=== PATIENT | male | born 1945 | race Caucasian/White ===

== ENCOUNTER 2016-12-12 15:40 | Emergency (ER) | payer MEDICARE ==
[2016-12-12] MEDS ORDERED: TAMSULOSIN 0.4 MG CAP.ER.24H PO STA (16:22)
[2016-12-12] MEDS ORDERED: HYDROmorphone 1 MG/ML 1 ML SYRINGE IVP STA (16:22)
[2016-12-12] MEDS ORDERED: ONDANSETRON 4 MG/2 ML VIAL IVP STA (16:22)
[2016-12-12] MEDS ORDERED: SODIUM CHLORIDE 0.9% 1,000 ML IV STA (16:22)
--- NOTE | 2016-12-12 16:30 | ED ---
Abdominal Pain HPI - General Chief Complaint: Abdominal Pain Stated Complaint: poss kidney stone Time Seen by Provider: 12/12/16 16:11 Source: patient, RN notes reviewed Mode of arrival: ambulatory Limitations: no limitations - History of Present Illness Initial Comments: 70 yo female presents to the ER with cc of right flank pain. Patient developed this right flank pain yesterday. Patient states he's continued to have this achy pain in the right flank. Patient states there is some nausea. Patient denies any vomiting. Patient states he does have a history of kidney stones.. Patient states it does feel like that. Patient states it does seem more mild than his typical flareup. Patient states he constantly has dysuria and has noticed no difference. Patient denies any hematuria. Patient states he was concerned due to the symptoms so he thought that he should be evaluated. Patient denies any recent fever, chills, shortness of breath, chest pain, vomiting, numbness or tingling, hematuria, constipation or diarrhea, headaches or visual changes, or any other current symptoms. - Related Data Home Medications Medication Instructions Recorded Confirmed Acetaminophen [Tylenol] 650 mg PO Q4H PRN 10/28/13 12/12/16 Aspirin 325 mg PO DAILY 10/28/13 12/12/16 Celecoxib [CeleBREX] 200 mg PO DAILY 10/28/13 12/12/16 Doxazosin [Cardura] 8 mg PO HS 10/28/13 12/12/16 Multivitamins, Thera [Multivitamin] 1 tab PO DAILY 10/28/13 12/12/16 Fexofenadine HCl [Mi Allergy] 180 mg PO DAILY PRN 10/11/14 12/12/16 Modafinil [Provigil] 300 mg PO DAILY 10/11/14 12/12/16 Previous Rx's Medication Instructions Recorded Hydrocodone/Acetaminophen [[place] 1 each PO Q6HR PRN #20 tab 12/12/16 5-325] Ketorolac [Toradol] 10 mg PO Q6HR #20 tab 12/12/16 Ondansetron Odt [Zofran ODT] 4 mg PO Q8HR PRN #20 tab 12/12/16 Tamsulosin [Flomax] 0.4 mg PO DAILY #5 cap 12/12/16 Allergies Allergy/AdvReac Type Severity Reaction Status Date / Time No Known Allergies Allergy Verified 12/12/16 15:53 Review of Systems ROS Statement: Those systems with pertinent positive or pertinent negative responses have been documented in the HPI. ROS Other: All systems not noted in ROS Statement are negative. Past Medical History Past Medical History: Osteoarthritis (OA), Prostate Disorder, Skin Disorder, Sleep Apnea/CPAP/BIPAP Additional Past Medical History / Comment(s): PRE-CA SKIN LESIONS; BACK PAIN; HX RT RENAL CALCULUS History of Any Multi-Drug Resistant Organisms: MRSA Date of last positivie culture/infection: 2014 MDRO Source:: finger Past Surgical History: Joint Replacement, Orthopedic Surgery Additional Past Surgical History / Comment(s): LT TOTAL KNEE; RT KNEE MAKOPLASTY ; ABD LIPOMA REMOVED; RT RENAL CALCULUS LITHOTRIPSY, RT URETERAL STENT Past Anesthesia/Blood Transfusion Reactions: No Reported Reaction Past Psychological History: No Psychological Hx Reported Smoking Status: Former smoker Past Alcohol Use History: None Reported Past Drug Use History: None Reported - Past Family History Father Family Medical History: Cancer, Myocardial Infarction ([place]) General Exam - General Exam Comments Initial Comments: General: The patient is awake and alert, in no distress, and does not appear acutely ill. Eye: Pupils are equal, round and reactive to light, extra-ocular movements are intact; there is normal conjunctiva bilaterally. No signs of icterus. Ears, nose, mouth and throat: There are moist mucous membranes. Neck: The neck is supple, there is no tenderness. Cardiovascular: There is a regular rate and rhythm. No murmur, rub or gallop is appreciated. Respiratory: Lungs are clear to auscultation, respirations are non-labored, breath sounds are equal. No wheezes, stridor, rales, or rhonchi. Gastrointestinal: Soft, non-distended, non-tender abdomen without masses or organomegaly noted. There is no rebound or guarding present. No CVA tenderness. Bowel sounds are unremarkable. Back: There is no tenderness to palpation in the midline. There is no obvious deformity. No rashes noted. Musculoskeletal: Normal ROM, no tenderness, There is no pedal edema. There is no calf tenderness or swelling. Sensation intact. Pulses equal bilaterally 2+. Neurological: CN II-XII intact, There are no obvious motor or sensory deficits. Coordination appears grossly intact. Speech is normal. Skin: Skin is warm and dry and no rashes or lesions are noted. Psychiatric: Cooperative, appropriate mood & affect, normal judgment. Limitations: no limitations Course Vital Signs 12/12/16 12/12/16 12/12/16 15:49 17:36 19:03 Temperature 97.3 F L 97.1 F L Pulse Rate 76 81 89 Respiratory 18 18 20 Rate Blood Pressure 176/76 167/75 154/67 O2 Sat by Pulse 98 98 96 Oximetry 12/12/16 19:22 Temperature 98.2 F Pulse Rate 70 Respiratory 16 Rate Blood Pressure 119/71 O2 Sat by Pulse 97 Oximetry Medical Decision Making - Medical Decision Making 70-year-old male presents emergency Department chief complaint of right flank pain. This time patient does appear to have a 5 mm right ureteral calculi. Patient was pain-free in the room. This time we did discuss due to some white blood cells in the urine we will cover for infection due to low suspicion for this. We are pending a culture. At this time we discussed follow-up with urology was is return parameters on patient's questions. He stated that he understood and is eager and plan. He will be discharged. - Lab Data Result diagrams: 12/12/16 19:01 12/12/16 19:01 Lab Results 12/12/16 12/12/16 12/12/16 Range/Units 18:30 19:01 19:01 WBC 7.5 (3.8-10.6) k/uL RBC 4.56 (4.30-5.90) m/uL Hgb 15.1 (13.0-17.5) gm/dL Hct 43.6 (39.0-53.0) % MCV 95.7 (80.0-100.0) fL MCH 33.2 (25.0-35.0) pg MCHC 34.7 (31.0-37.0) g/dL RDW 13.4 (11.5-15.5) % Plt Count 183 (150-450) k/uL Neutrophils % 74 % Lymphocytes % 12 % Monocytes % 7 % Eosinophils % 3 % Basophils % 0 % Neutrophils # 5.6 (1.3-7.7) k/uL Lymphocytes # 0.9 L (1.0-4.8) k/uL Monocytes # 0.5 (0-1.0) k/uL Eosinophils # 0.3 (0-0.7) k/uL Basophils # 0.0 (0-0.2) k/uL Sodium 140 (137-145) mmol/L Potassium 4.3 (3.5-5.1) mmol/L Chloride 107 (98-107) mmol/L Carbon Dioxide 24 (22-30) mmol/L Anion Gap 9 mmol/L BUN 22 H (9-20) mg/dL Creatinine 0.93 (0.66-1.25) mg/dL Est GFR (MDRD) Af Amer >60 (>60 ml/min/1.73 sqM) Est GFR (MDRD) Non-Af >60 (>60 ml/min/1.73 sqM) Glucose 101 H (74-99) mg/dL Calcium 8.5 (8.4-10.2) mg/dL Total Bilirubin 1.0 (0.2-1.3) mg/dL AST 30 (17-59) U/L ALT 32 (21-72) U/L Alkaline Phosphatase 102 (38-126) U/L Total Protein 6.6 (6.3-8.2) g/dL Albumin 3.9 (3.5-5.0) g/dL Urine Color Yellow Urine Appearance Cloudy (Clear) Urine pH 6.5 (5.0-8.0) Ur Specific [place] 1.017 (1.001-1.035) Urine Protein 1+ H (Negative) Urine Glucose (UA) Negative (Negative) Urine Ketones Negative (Negative) Urine Blood Moderate H (Negative) Urine Nitrite Negative (Negative) Urine Bilirubin Negative (Negative) Urine Urobilinogen <2.0 (<2.0) mg/dL Ur Leukocyte Esterase Moderate H (Negative) Urine RBC 106 H (0-5) /hpf Urine WBC 21 H (0-5) /hpf Ur Squamous Epith Cells 2 (0-4) /hpf Calcium Oxalate Crystal Rare H (None) /hpf Urine Bacteria Rare H (None) /hpf Hyaline Casts 5 H (0-2) /lpf Urine Mucus Occasional H (None) /hpf - Radiology Data Radiology results: report reviewed, image reviewed Disposition Clinical Impression: Right ureteral calculus Disposition: HOME SELF-CARE Condition: Stable Instructions: Kidney Stones (ED) Additional Instructions: Please use medication as discussed. Please follow up with family doctor if symptoms have not improved over the next two days. Please return to the emergency room if your symptoms increase or worsen or for any other concerns. Prescriptions: Hydrocodone/Acetaminophen [[place] 5-325] 1 each PO Q6HR PRN #20 tab PRN Reason: Pain Ketorolac [Toradol] 10 mg PO Q6HR #20 tab Ondansetron Odt [Zofran ODT] 4 mg PO Q8HR PRN #20 tab PRN Reason: Nausea Tamsulosin [Flomax] 0.4 mg PO DAILY #5 cap Referrals: Yan Gaona MD [Primary Care Provider] - 1-2 days Time of Disposition: 20:14
--- NOTE | 2016-12-12 17:34 | XR ---
EXAMINATION TYPE: XR KUB DATE OF EXAM: 12/12/2016 COMPARISON: 07/21/2013 HISTORY: Right flank pain TECHNIQUE: 2 views FINDINGS: There is mild linear density at the right lung base. There is no sign of intestinal obstruc tion or pneumoperitoneum. Bony structures are intact. There is a 5 mm calcification over the left kid geovanny. IMPRESSION: Possible left renal calculus. Nonacute abdomen. Atelectasis at the right lung base. There is calcification over the right renal pelvis on the old exam that is not seen on today's exam.
[2016-12-12 19:00] LABS: Appearance,Urine Cloudy (Clear); Bacteria,Urine Rare /hpf; Bilirubin,Urine Negative (Negative); Calcium Oxalate Crystals,Urine Rare /hpf; Glucose,Urine (UA) Negative (Negative); Ketones,Urine Negative (Negative); Leukocyte Esterase,Urine Moderate (Negative); Mucus,Urine Occasional /hpf; Nitrite,Urine Negative (Negative); PH, Urine 6.5 (5.0-8.0); Particle Count 4300; Protein,Urine 1+ (Negative); RBC,Urine 106 /hpf (0-5); Specific Gravity,Urine 1.017 (1.001-1.035); Squamous Epithelial Cell,Urine 2 /hpf (0-4); UA Billing (MACRO vs. MICRO) MICRO; Urobilinogen,Urine <2.0 mg/dL (<2.0); WBC,Urine 21 /hpf (0-5)
[2016-12-12 19:23] VITALS: TEMP 98.2
[2016-12-12 19:23] LABS: Basophils % (A) 0 %; CH 31.6; CHCM 33.2; Eosinophils # (A) 0.3 k/uL (0-0.7); Eosinophils % (A) 3 %; HCT 43.6 % (39.0-53.0); HDW 2.53; HGB 15.1 gm/dL (13.0-17.5); Luc # (Auto) 0.21; Luc % (Auto) 3; Lymphocytes # (A) 0.9 k/uL (1.0-4.8); Lymphocytes % (A) 12 %; MCH 33.2 pg (25.0-35.0); MCHC 34.7 g/dL (31.0-37.0); MCV 95.7 fL (80.0-100.0); Mean Platelet Volume 7.2; Monocytes # (A) 0.5 k/uL (0-1.0); Monocytes % (A) 7 %; Neutrophils # (A) 5.6 k/uL (1.3-7.7); Neutrophils % (A) 74 %; RBC 4.56 m/uL (4.30-5.90); RDW 13.4 % (11.5-15.5); WBC 7.5 k/uL (3.8-10.6); WBC (Perox) 7.97
[2016-12-12 19:34] LABS: ALT 32 U/L (21-72); AST 30 U/L (17-59); Alkaline Phosphatase 102 U/L (38-126); Anion Gap 9 mmol/L; Blood Urea Nitrogen 22 mg/dL (9-20); Calcium 8.5 mg/dL (8.4-10.2); Carbon Dioxide 24 mmol/L (22-30); Chloride 107 mmol/L (98-107); Glucose 101 mg/dL (74-99); Non-African American GFR(MDRD) >60 (>60 ml/min/1.73 sqM); Potassium 4.3 mmol/L (3.5-5.1); Sodium 140 mmol/L (137-145); Total Protein 6.6 g/dL (6.3-8.2)
--- NOTE | 2016-12-12 20:04 | CT ---
EXAMINATION TYPE: CT abdomen pelvis wo con DATE OF EXAM: 12/12/2016 COMPARISON: 05/29/2013 HISTORY: Hematuria CT DLP: 3091.9 mGycm Automated exposure control for dose reduction was used. TECHNIQUE: Helical acquisition of images was performed from the lung bases through the pelvis. FINDINGS: Heart is enlarged. There is no pleural effusion. Liver spleen pancreas gallbladder appear normal. Bile ducts are not dilated. There is no adrenal mass . There are left renal parapelvic cysts. There is calcification in the left. Kidney consistent with n onobstructive calculi. There is a 5 mm calcification in the pelvis on the right side that is probably at lower ureteral calculus. There is no retroperitoneal adenopathy. There is no ascites. Latter dist ends smoothly. I see no intestinal wall thickening. There are no dilated loops. There is probably def ormity of the floor of the urinary bladder due to prostate surgery. There is spondylosis in the lower lumbar spine. There is no compression fracture. There is mild fat stranding in the right lower quadr ant inferior to the cecum. Appendix is seen and appears normal. IMPRESSION: THERE ARE NONOBSTRUCTING LEFT RENAL CALCULI. LEFT RENAL PARAPELVIC CYSTS. THERE IS CLEARING OF THE ST ONE AT THE RIGHT URETEROPELVIC JUNCTION COMPARED TO OLD EXAM. THERE IS SOME FAT STRANDING IN THE RIGH T LOWER QUADRANT INFERIOR TO THE CECUM PROBABLY DUE TO URETERAL OBSTRUCTION AND PERIURETERAL EDEMA.. THIS APPEARS NEW COMPARED TO OLD EXAM. THE APPENDIX IS SEEN AND APPEARS NORMAL. THERE IS A 5 MM CALCIFICATION ON AXIAL IMAGE 127 CONSISTENT WITH THE OBSTRUCTING STONE IN THE LOWER R IGHT URETER. THE RIGHT RENAL PELVIS AND PROXIMAL URETER IS NOT SIGNIFICANTLY DILATED HOWEVER. SIGMOID DIVERTICULOSIS WITHOUT SIGN OF DIVERTICULITIS. CARDIOMEGALY.
[2016-12-12 20:33] VITALS: BP 120/68; PULSE 74; RESP 18
== END 2016-12-12 20:30 | disposition home or self-care (01) ==
LOC: EC 15:40
DX: N20.1 Calculus of ureter (principal); M19.90 Unspecified osteoarthritis, unspecified site; Z87.891 Personal history of nicotine dependence; Z79.82 Long term (current) use of aspirin; Z79.1 Long term (current) use of non-steroidal anti-inflammatories (NSAID); Z79.899 Other long term (current) drug therapy
CPT/HCPCS: 99284; 96365; 96375 ×2; 96361; 36415; 80053; 85025; 81001; 87086; 74000; 74176; J2405; J0696; J1170

== ENCOUNTER 2017-02-09 15:49 | Emergency (ER) | payer MEDICARE ==
[2017-02-09 15:59] VITALS: BP 175/89; PULSE 90; RESP 18; TEMP 98.4
--- NOTE | 2017-02-09 17:45 | ED ---
General Adult HPI <Bonifacio Gaviria - Last Filed: 02/09/17 20:07> - General Source: patient, RN notes reviewed Mode of arrival: ambulatory Limitations: no limitations <Rebel Costa - Last Filed: 02/09/17 20:16> - General Chief complaint: Skin/Abscess/Foreign Body Stated complaint: Recheck Time Seen by Provider: 02/09/17 17:21 - History of Present Illness Initial comments: Patient is a 71 year old male presenting to the ER today with a chief complaint of abscess to the suprapubic area that started 1 week ago. States was draining and went to urgent care two days ago and was started of clindamyacin and culture was obtained. States was called today advised to go to ER because culture came back positive for need of IV antibiotics. Patient states that it is no longer draining at this time. States about the same size and currently not painful. Patient denies any other complaints. Patient denies any recent fever, chills, shortness of breath, chest pain, back pain, abdominal pain, nausea or vomiting, numbness or tingling, dysuria or hematuria, constipation or diarrhea, headaches or visual changes, or any other complaints. (Rebel Costa) - Related Data Home Medications Medication Instructions Recorded Confirmed Aspirin 325 mg PO DAILY 10/28/13 02/09/17 Celecoxib [CeleBREX] 200 mg PO DAILY 10/28/13 02/09/17 Doxazosin [Cardura] 8 mg PO HS 10/28/13 02/09/17 Multivitamins, Thera [Multivitamin] 1 tab PO DAILY 10/28/13 02/09/17 Fexofenadine HCl [Mi Allergy] 180 mg PO DAILY 10/11/14 02/09/17 Modafinil [Provigil] 300 mg PO DAILY 10/11/14 02/09/17 Naproxen Sodium [Aleve] 220 mg PO DAILY PRN 02/09/17 02/09/17 Previous Rx's Medication Instructions Recorded Mupirocin 2% Oint [Bactroban Oint] 1 applic TOPICAL TID #1 gm 02/09/17 Allergies Allergy/AdvReac Type Severity Reaction Status Date / Time No Known Allergies Allergy Verified 02/09/17 17:38 Review of Systems ROS Other: All systems not noted in ROS Statement are negative. <Bonifacio Gaviria - Last Filed: 02/09/17 20:07> ROS Other: All systems not noted in ROS Statement are negative. <IgorRebel - Last Filed: 02/09/17 20:16> ROS Statement: Those systems with pertinent positive or pertinent negative responses have been documented in the HPI. Past Medical History Past Medical History: Osteoarthritis (OA), Prostate Disorder, Skin Disorder, Sleep Apnea/CPAP/BIPAP Additional Past Medical History / Comment(s): PRE-CA SKIN LESIONS; BACK PAIN; HX RT RENAL CALCULUS History of Any Multi-Drug Resistant Organisms: MRSA Date of last positivie culture/infection: 2014 MDRO Source:: finger Past Surgical History: Joint Replacement, Orthopedic Surgery Additional Past Surgical History / Comment(s): LT TOTAL KNEE; RT KNEE MAKOPLASTY ; ABD LIPOMA REMOVED; RT RENAL CALCULUS LITHOTRIPSY, RT URETERAL STENT Past Anesthesia/Blood Transfusion Reactions: No Reported Reaction Past Psychological History: No Psychological Hx Reported Smoking Status: Former smoker Past Alcohol Use History: None Reported Past Drug Use History: None Reported - Past Family History Father Family Medical History: Cancer, Myocardial Infarction ([place]) <CostaRebel - Last Filed: 02/09/17 20:16> General Exam <EveretteBonifacio - Last Filed: 02/09/17 20:07> Limitations: no limitations <Rebel Costa - Last Filed: 02/09/17 20:16> - General Exam Comments Initial Comments: General: The patient is awake and alert, in no distress, and does not appear acutely ill. Eye: Pupils are equal, round and reactive to light, extra-ocular movements are intact. No nystagmus. There is normal conjunctiva bilaterally. No signs of icterus. Ears, nose, mouth and throat: There are moist mucous membranes and no oral lesions. Neck: The neck is supple, there is no tenderness or JVD. Cardiovascular: There is a regular rate and rhythm. No murmur, rub or gallop is appreciated. Respiratory: Lungs are clear to auscultation, respirations are non-labored, breath sounds are equal. No wheezes, stridor, rales, or rhonchi. Gastrointestinal: Soft, non-distended, non-tender abdomen without masses or organomegaly noted. There is no rebound or guarding present. No CVA tenderness. Bowel sounds are unremarkable. Musculoskeletal: Normal ROM, no tenderness. Strength 5/5. Sensation intact. Pulses equal bilaterally 2+. Neurological: A&O x 3. CN II-XII intact, There are no obvious motor or sensory deficits. Coordination appears grossly intact. Speech is normal. Skin: Patient does have abscesses suprapubic area. Mild redness. Firm on palpation. Measures approximately 2 siblings across. Psychiatric: Cooperative, appropriate mood & affect, normal judgment. (Rebel Costa) Medical Decision Making - Lab Data Result diagrams: 02/09/17 18:32 02/09/17 18:32 <Bonifacio Gaviria - Last Filed: 02/09/17 20:07> - Lab Data Result diagrams: 02/09/17 18:32 02/09/17 18:32 <Rebel Costa - Last Filed: 02/09/17 20:16> - Medical Decision Making Patient reevaluated by myself, Dr. Gaviria. Patient does have area of healing abscess and mild skin induration in the suprapubic region. No significant cellulitis. Patient otherwise looks well. Case was discussed in detail with Dr. Gaona including culture results, who would like to follow patient in the office in a couple of days. He does recommend adding mupirocin ointment. (Bonifacio Gaviria) - Lab Data Lab Results 02/09/17 02/09/17 02/09/17 Range/Units 18:32 18:32 18:53 WBC 6.7 (3.8-10.6) k/uL RBC 4.46 (4.30-5.90) m/uL Hgb 14.6 (13.0-17.5) gm/dL Hct 41.7 (39.0-53.0) % MCV 93.4 (80.0-100.0) fL MCH 32.7 (25.0-35.0) pg MCHC 35.0 (31.0-37.0) g/dL RDW 13.0 (11.5-15.5) % Plt Count 263 (150-450) k/uL Neutrophils % 69 % Lymphocytes % 18 % Monocytes % 6 % Eosinophils % 4 % Basophils % 1 % Neutrophils # 4.6 (1.3-7.7) k/uL Lymphocytes # 1.2 (1.0-4.8) k/uL Monocytes # 0.4 (0-1.0) k/uL Eosinophils # 0.3 (0-0.7) k/uL Basophils # 0.0 (0-0.2) k/uL Sodium 141 (137-145) mmol/L Potassium 4.2 (3.5-5.1) mmol/L Chloride 106 (98-107) mmol/L Carbon Dioxide 26 (22-30) mmol/L Anion Gap 9 mmol/L BUN 18 (9-20) mg/dL Creatinine 0.66 (0.66-1.25) mg/dL Est GFR (MDRD) Af Amer >60 (>60 ml/min/1.73 sqM) Est GFR (MDRD) Non-Af >60 (>60 ml/min/1.73 sqM) Glucose 131 H (74-99) mg/dL Calcium 8.8 (8.4-10.2) mg/dL Urine Color Yellow Urine Appearance Cloudy (Clear) Urine pH 6.5 (5.0-8.0) Ur Specific [place] 1.019 (1.001-1.035) Urine Protein 1+ H (Negative) Urine Glucose (UA) Negative (Negative) Urine Ketones Negative (Negative) Urine Blood Trace H (Negative) Urine Nitrite Negative (Negative) Urine Bilirubin Negative (Negative) Urine Urobilinogen <2.0 (<2.0) mg/dL Ur Leukocyte Esterase Trace H (Negative) Urine RBC 30 H (0-5) /hpf Urine WBC 16 H (0-5) /hpf Ur Squamous Epith Cells 4 (0-4) /hpf Urine Bacteria Rare H (None) /hpf Urine Mucus Many H (None) /hpf Disposition <Bonifacio Gaviria - Last Filed: 02/09/17 20:07> Time of Disposition: 20:15 <Rebel Costa - Last Filed: 02/09/17 20:16> Clinical Impression: Suprapubic abscess Disposition: HOME SELF-CARE Condition: Good Instructions: Abscess (ED) Additional Instructions: Please follow-up the family doctor in the next 1-2 days as discussed per please use topical ointment as prescribed. Please try to emergency room for any other concerns. Prescriptions: Mupirocin 2% Oint [Bactroban Oint] 1 applic TOPICAL TID #1 gm Referrals: Yan Gaona MD [Primary Care Provider] - 1-2 days
[2017-02-09 18:59] LABS: Basophils % (A) 1 %; CH 31.8; CHCM 34.2; Eosinophils # (A) 0.3 k/uL (0-0.7); Eosinophils % (A) 4 %; HCT 41.7 % (39.0-53.0); HDW 2.71; HGB 14.6 gm/dL (13.0-17.5); Luc # (Auto) 0.12; Luc % (Auto) 2; Lymphocytes # (A) 1.2 k/uL (1.0-4.8); Lymphocytes % (A) 18 %; MCH 32.7 pg (25.0-35.0); MCV 93.4 fL (80.0-100.0); Mean Platelet Volume 6.8; Monocytes # (A) 0.4 k/uL (0-1.0); Monocytes % (A) 6 %; Neutrophils # (A) 4.6 k/uL (1.3-7.7); Neutrophils % (A) 69 %; RBC 4.46 m/uL (4.30-5.90); WBC 6.7 k/uL (3.8-10.6)
[2017-02-09 19:03] LABS: Anion Gap 9 mmol/L; Blood Urea Nitrogen 18 mg/dL (9-20); Calcium 8.8 mg/dL (8.4-10.2); Carbon Dioxide 26 mmol/L (22-30); Chloride 106 mmol/L (98-107); Glucose 131 mg/dL (74-99); Non-African American GFR(MDRD) >60 (>60 ml/min/1.73 sqM); Potassium 4.2 mmol/L (3.5-5.1); Sodium 141 mmol/L (137-145)
[2017-02-09 19:03] LABS: Appearance,Urine Cloudy (Clear); Bacteria,Urine Rare /hpf; Bilirubin,Urine Negative (Negative); Glucose,Urine (UA) Negative (Negative); Ketones,Urine Negative (Negative); Leukocyte Esterase,Urine Trace (Negative); Mucus,Urine Many /hpf; Nitrite,Urine Negative (Negative); PH, Urine 6.5 (5.0-8.0); Particle Count 14734; Protein,Urine 1+ (Negative); RBC,Urine 30 /hpf (0-5); Specific Gravity,Urine 1.019 (1.001-1.035); Squamous Epithelial Cell,Urine 4 /hpf (0-4); UA Billing (MACRO vs. MICRO) MICRO; Urobilinogen,Urine <2.0 mg/dL (<2.0); WBC,Urine 16 /hpf (0-5)
--- NOTE | 2017-02-09 19:38 | US ---
EXAMINATION TYPE: US abdomen limited DATE OF EXAM: 02/09/2017 COMPARISON: NONE CLINICAL HISTORY: Pain. Abscess suprapubic area with lump No abnormalities visualized in lump area. IMPRESSION: No discrete solid or cystic masses identified in the suprapubic region of concern.
== END 2017-02-09 20:30 | disposition home or self-care (01) ==
LOC: EC 15:49
DX: L02.211 Cutaneous abscess of abdominal wall (principal); M19.90 Unspecified osteoarthritis, unspecified site; N42.9 Disorder of prostate, unspecified; Z87.891 Personal history of nicotine dependence; Z79.82 Long term (current) use of aspirin; Z79.899 Other long term (current) drug therapy
CPT/HCPCS: 36415; 76705; 76857; 80048; 81001; 85025; 87040; 87086; 99283

== ENCOUNTER → 2018-01-06 | Outpatient (CLI) | payer MEDICARE ==
--- NOTE | 2018-01-06 20:25 | XR ---
EXAMINATION TYPE: XR KUB DATE OF EXAM: 01/06/2018 COMPARISON: 12/12/2016 HISTORY: Back pain TECHNIQUE: 2 views FINDINGS: 2 upright views were obtained and show no sign of intestinal obstruction or pneumoperitoneu m. There are calcifications in the lower pole left kidney. There is no sign of a mass. Fecal pattern is normal. IMPRESSION: Left renal calculi appear increased compared to last exam. Nonacute abdomen.
== END | disposition home or self-care (01) ==
LOC: RADXRMAIN 16:38
PROVIDERS: ATTEND Urology
DX: N20.0 Calculus of kidney (principal)
CPT/HCPCS: 74018

== ENCOUNTER → 2018-01-18 | Outpatient (CLI) | payer MEDICARE ==
[2018-01-18 16:46] LABS: Blood Urea Nitrogen 24 mg/dL (9-20)
--- NOTE | 2018-01-19 09:39 | CT ---
EXAMINATION TYPE: CT abdomen pelvis w con DATE OF EXAM: 01/18/2018 COMPARISON: 12/12/2016 INDICATION: Hematuria and flank pain. DLP: 4105.4 mGycm, Automated exposure control for dose reduction was used. CONTRAST: 100 mL of Isovue 300. Study performed with Oral Contrast TECHNIQUE: Axial images were obtained from above the diaphragm to the pubic rami in the axial plane a t 5 mm thick sections. Reconstructed images are reviewed on the computer in the coronal plane. FINDINGS: Limited CT sections are obtained the lung bases. There is a punctate calcified granuloma at the righ t lung base. CT ABDOMEN: Liver: There is a 0.8 cm hypodensity within the right lobe liver present previously could be a small cyst is too small to classify. Spleen: Normal Pancreas: Normal Adrenal glands: The adrenal glands are normal. Gallbladder: Normal Kidneys: No masses are evident. There is mild left hydronephrosis. A 1.0 cm cyst is in the inferior l eft renal cortex. Multiple renal stones are within the left kidney. At the inferior pole of the le ft kidney is a 0.3 cm calcification. There are two 0.4 cm calcifications at the mid left kidney. An a dditional 0.6 cm calcifications in the lateral left mid kidney. In the mid upper pole left kidney 0.4 cm calcification. Peripelvic cysts appear to be present. Hydronephrosis is less likely. Findings are stable. Aorta: No aneurysmal dilatation is evident. Inferior vena cava: Normal. CT PELVIS: Loops of bowel within the abdomen and pelvis are normal. Diverticular changes are within the sigmo id colon. No acute diverticulitis is evident. There are loops of bowel which are incompletely distend ed or lack oral contrast limiting their evaluation. Appendix: Normal as visualized. Urinary bladder: Normal. Genitourinary structures: Prostate is prominent. Calcifications are present. Prostate is somewhat het erogenous. Consider additional evaluation of the prostate. Osseous structures: No suspicious lytic or sclerotic lesions. Facet degenerative changes are present. Fat-containing right inguinal hernia is present. IMPRESSIONS: 1. Nonobstructing left renal stones. 2. Prominence of the prostate. Consider additional evaluation with prostate ultrasound.
== END | disposition home or self-care (01) ==
LOC: RADCTMAIN 16:06
PROVIDERS: ATTEND Urology
DX: N20.0 Calculus of kidney (principal); R31.9 Hematuria, unspecified
CPT/HCPCS: 82565; 84520; 74177; 36415; Q9967

== ENCOUNTER 2018-06-25 19:33 | Inpatient (IN) | payer MEDICARE ==
[2018-06-25] MEDS ORDERED: SODIUM CHLORIDE 0.9% 1,000 ML IV STA (19:37)
[2018-06-25] MEDS ORDERED: ACETAMINOPHEN TAB 500 MG TAB PO STA (20:22)
[2018-06-25] MEDS ORDERED: IBUPROFEN 600 MG TAB PO STA (20:22)
--- NOTE | 2018-06-25 20:22 | ED ---
Weakness HPI - General Chief complaint: Fall Stated complaint: Weakness Time Seen by Provider: 06/25/18 19:37 Source: patient, EMS, RN notes reviewed, old records reviewed Mode of arrival: EMS Limitations: no limitations - History of Present Illness Initial comments: This is a 72-year-old male the ER for evaluation patient with a for evaluation weakness of fall. Patient persistent weakness of fall currently. No recent travel history no sick contacts. Denies any other significant pain. From the urgent injury from the fall. Patient has had fever for 2 days. Occasional cough no significant shortness of breath. No nausea vomiting or diarrhea no abdominal pain no known rashes. Patient to present to us to Dr. reid in the day did have labwork done was discharged home. MD Complaint: generalized weakness -: days(s) (3) Location: generalized, LLE, RLE Severity: moderate Severity scale (1-10): 7 Quality: other (No pain) Consistency: constant Improves with: none Worsens with: movement Context: recent illness Associated Symptoms: fever/chills - Related Data Home Medications Medication Instructions Recorded Confirmed Aspirin 325 mg PO DAILY 10/28/13 06/25/18 Celecoxib [CeleBREX] 200 mg PO DAILY 10/28/13 06/25/18 Doxazosin [Cardura] 8 mg PO HS 10/28/13 06/25/18 Multivitamins, Thera [Multivitamin] 1 tab PO DAILY 10/28/13 06/25/18 Fexofenadine HCl [Mi Allergy] 180 mg PO DAILY 10/11/14 06/25/18 Modafinil [Provigil] 300 mg PO DAILY 10/11/14 06/25/18 Naproxen Sodium [Aleve] 220 mg PO DAILY PRN 02/09/17 06/25/18 Allergies Allergy/AdvReac Type Severity Reaction Status Date / Time No Known Allergies Allergy Verified 06/25/18 21:34 Review of Systems ROS Statement: Those systems with pertinent positive or pertinent negative responses have been documented in the HPI. ROS Other: All systems not noted in ROS Statement are negative. Past Medical History Past Medical History: Osteoarthritis (OA), Prostate Disorder, Skin Disorder, Sleep Apnea/CPAP/BIPAP Additional Past Medical History / Comment(s): PRE-CA SKIN LESIONS; BACK PAIN; HX RT RENAL CALCULUS History of Any Multi-Drug Resistant Organisms: MRSA Date of last positivie culture/infection: 2014 MDRO Source:: finger Past Surgical History: Joint Replacement, Orthopedic Surgery Additional Past Surgical History / Comment(s): LT TOTAL KNEE; RT KNEE MAKOPLASTY ; ABD LIPOMA REMOVED; RT RENAL CALCULUS LITHOTRIPSY, RT URETERAL STENT Past Anesthesia/Blood Transfusion Reactions: No Reported Reaction Past Psychological History: No Psychological Hx Reported Smoking Status: Former smoker Past Alcohol Use History: None Reported Past Drug Use History: None Reported - Past Family History Father Family Medical History: Cancer, Myocardial Infarction ([place]) General Exam Limitations: no limitations General appearance: alert, in no apparent distress, obese Head exam: Present: atraumatic, normocephalic, normal inspection Eye exam: Present: normal appearance, PERRL, EOMI. Absent: scleral icterus, conjunctival injection, periorbital swelling ENT exam: Present: normal exam, mucous membranes moist Neck exam: Present: normal inspection. Absent: tenderness, meningismus, lymphadenopathy Respiratory exam: Present: normal lung sounds bilaterally. Absent: respiratory distress, wheezes, rales, rhonchi, stridor Cardiovascular Exam: Present: regular rate, normal rhythm, normal heart sounds. Absent: systolic murmur, diastolic murmur, rubs, gallop, clicks GI/Abdominal exam: Present: soft, normal bowel sounds. Absent: distended, tenderness, guarding, rebound, rigid Extremities exam: Present: normal inspection, full ROM, normal capillary refill. Absent: tenderness, pedal edema, joint swelling, calf tenderness Back exam: Present: normal inspection Neurological exam: Present: alert, oriented X3, CN II-XII intact Psychiatric exam: Present: normal affect, normal mood Skin exam: Present: warm, dry, intact, normal color. Absent: rash Course Vital Signs 06/25/18 06/25/18 06/25/18 19:37 20:20 20:30 Temperature 101.6 F H Pulse Rate 90 82 105 H Respiratory 18 22 22 Rate Blood Pressure 161/76 161/76 161/76 O2 Sat by Pulse 95 97 Oximetry 06/25/18 06/25/18 21:20 23:26 Temperature 97.9 F Pulse Rate 80 Respiratory 18 Rate Blood Pressure 167/82 O2 Sat by Pulse 96 Oximetry - Reevaluation(s) Reevaluation #1: 06/25/18 20:30 medical record is reviewed Reevaluation #2: 06/25/18 20:31 Symptoms are improved with symptomatic management fever control and IV hydration Reevaluation #3: 06/25/18 23:30 Patient still very weak, unable to ambulate with good strength EKG Findings - EKG Comments: EKG Findings:: EKG shows sinus rhythm rate of 80, [place] 172, QRS 74, QTc 566 Medical Decision Making - Medical Decision Making 72-year-old male the ER for evaluation continues to feel weak, patient will be admitted for broad-spectrum antibiotics, monitoring of fever, hydration. - Lab Data Result diagrams: 06/25/18 21:24 06/25/18 21:18 Lab Results 06/25/18 06/25/18 06/25/18 Range/Units 20:40 21:18 21:18 WBC (3.8-10.6) k/uL RBC (4.30-5.90) m/uL Hgb (13.0-17.5) gm/dL Hct (39.0-53.0) % MCV (80.0-100.0) fL MCH (25.0-35.0) pg MCHC (31.0-37.0) g/dL RDW (11.5-15.5) % Plt Count (150-450) k/uL Neutrophils % % Lymphocytes % % Monocytes % % Eosinophils % % Basophils % % Neutrophils # (1.3-7.7) k/uL Lymphocytes # (1.0-4.8) k/uL Monocytes # (0-1.0) k/uL Eosinophils # (0-0.7) k/uL Basophils # (0-0.2) k/uL PT 10.7 (9.0-12.0) sec INR 1.0 (<1.2) APTT 25.9 (22.0-30.0) sec Sodium 136 L (137-145) mmol/L Potassium 4.0 (3.5-5.1) mmol/L Chloride 104 (98-107) mmol/L Carbon Dioxide 24 (22-30) mmol/L Anion Gap 8 mmol/L BUN 19 (9-20) mg/dL Creatinine 0.63 L (0.66-1.25) mg/dL Est GFR (CKD-EPI)AfAm >90 (>60 ml/min/1.73 sqM) Est GFR (CKD-EPI)NonAf >90 (>60 ml/min/1.73 sqM) Glucose 125 H (74-99) mg/dL Plasma Lactic Acid Casey (0.7-2.0) mmol/L Calcium 8.3 L (8.4-10.2) mg/dL Phosphorus 2.7 (2.5-4.5) mg/dL Magnesium 2.0 (1.6-2.3) mg/dL Total Bilirubin 1.0 (0.2-1.3) mg/dL AST 20 (17-59) U/L ALT 28 (21-72) U/L Alkaline Phosphatase 68 (38-126) U/L Total Creatine Kinase (55-170) U/L CK-MB (CK-2) (0.0-2.4) ng/mL CK-MB (CK-2) Rel Index Troponin I (0.000-0.034) ng/mL Total Protein 5.7 L (6.3-8.2) g/dL Albumin 3.3 L (3.5-5.0) g/dL TSH 0.163 L (0.465-4.680) mIU/L Influenza Type A RNA Not Detected (Not Detectd) Influenza Type B (PCR) Not Detected (Not Detectd) 06/25/18 06/25/18 06/25/18 Range/Units 21:18 21:18 21:24 WBC 11.7 H (3.8-10.6) k/uL RBC 4.26 L (4.30-5.90) m/uL Hgb 13.5 (13.0-17.5) gm/dL Hct 41.0 (39.0-53.0) % MCV 96.1 (80.0-100.0) fL MCH 31.6 (25.0-35.0) pg MCHC 32.9 (31.0-37.0) g/dL RDW 13.3 (11.5-15.5) % Plt Count 200 (150-450) k/uL Neutrophils % 85 % Lymphocytes % 5 % Monocytes % 7 % Eosinophils % 1 % Basophils % 0 % Neutrophils # 10.0 H (1.3-7.7) k/uL Lymphocytes # 0.6 L (1.0-4.8) k/uL Monocytes # 0.8 (0-1.0) k/uL Eosinophils # 0.1 (0-0.7) k/uL Basophils # 0.0 (0-0.2) k/uL PT (9.0-12.0) sec INR (<1.2) APTT (22.0-30.0) sec Sodium (137-145) mmol/L Potassium (3.5-5.1) mmol/L Chloride (98-107) mmol/L Carbon Dioxide (22-30) mmol/L Anion Gap mmol/L BUN (9-20) mg/dL Creatinine (0.66-1.25) mg/dL Est GFR (CKD-EPI)AfAm (>60 ml/min/1.73 sqM) Est GFR (CKD-EPI)NonAf (>60 ml/min/1.73 sqM) Glucose (74-99) mg/dL Plasma Lactic Acid Casey 0.9 (0.7-2.0) mmol/L Calcium (8.4-10.2) mg/dL Phosphorus (2.5-4.5) mg/dL Magnesium (1.6-2.3) mg/dL Total Bilirubin (0.2-1.3) mg/dL AST (17-59) U/L ALT (21-72) U/L Alkaline Phosphatase (38-126) U/L Total Creatine Kinase 69 (55-170) U/L CK-MB (CK-2) 0.6 (0.0-2.4) ng/mL CK-MB (CK-2) Rel Index 0.9 Troponin I 0.017 (0.000-0.034) ng/mL Total Protein (6.3-8.2) g/dL Albumin (3.5-5.0) g/dL TSH (0.465-4.680) mIU/L Influenza Type A RNA (Not Detectd) Influenza Type B (PCR) (Not Detectd) - Radiology Data Radiology results: report reviewed (CT brain negative chest x-ray and pelvis x- ray negative for acute disease or traumatic injury), image reviewed Disposition Clinical Impression: Fall, Pre-syncope, Weakness, Fever Disposition: ADMITTED IP TO THIS HOSP Condition: Fair Is patient prescribed a controlled substance at d/c from ED?: No Referrals: Yan Gaona MD [Primary Care Provider] - 1-2 days
--- NOTE | 2018-06-25 21:25 | XR ---
EXAMINATION TYPE: XR pelvis AP view DATE OF EXAM: 06/25/2018 COMPARISON: NONE HISTORY: Pain TECHNIQUE: Single view FINDINGS: The pelvic ring is intact. Proximal femurs and hip joints are intact. Sacroiliac joints jc ear intact. IMPRESSION: No acute abnormality of the pelvis. No fracture.
--- NOTE | 2018-06-25 21:26 | XR ---
EXAMINATION TYPE: XR chest 2V DATE OF EXAM: 06/25/2018 COMPARISON: Today HISTORY: Weakness TECHNIQUE: Frontal and lateral views of the chest are obtained. FINDINGS: There is no heart failure nor confluent pneumonic infiltrate. Costophrenic angles are augie r. The bony thorax is intact. There are chest leads. IMPRESSION: No active cardiopulmonary disease. No change.
[2018-06-25 21:38] LABS: Basophils % (A) 0 %; Eosinophils # (A) 0.1 k/uL (0-0.7); Eosinophils % (A) 1 %; HGB 13.5 gm/dL (13.0-17.5); Lymphocytes # (A) 0.6 k/uL (1.0-4.8); Lymphocytes % (A) 5 %; MCH 31.6 pg (25.0-35.0); MCHC 32.9 g/dL (31.0-37.0); MCV 96.1 fL (80.0-100.0); Mean Platelet Volume 7.2; Monocytes # (A) 0.8 k/uL (0-1.0); Monocytes % (A) 7 %; Neutrophils % (A) 85 %; Platelet Count 200 k/uL (150-450); RBC 4.26 m/uL (4.30-5.90); RDW 13.3 % (11.5-15.5); WBC 11.7 k/uL (3.8-10.6)
[2018-06-25 21:48] LABS: Partial Thromboplastin Time 25.9 sec (22.0-30.0); Prothrombin Time 10.7 sec (9.0-12.0)
[2018-06-25 21:52] LABS: ALT 28 U/L (21-72); AST 20 U/L (17-59); Albumin 3.3 g/dL (3.5-5.0); Alkaline Phosphatase 68 U/L (38-126); Anion Gap 8 mmol/L; Blood Urea Nitrogen 19 mg/dL (9-20); Calcium 8.3 mg/dL (8.4-10.2); Carbon Dioxide 24 mmol/L (22-30); Chloride 104 mmol/L (98-107); Glucose 125 mg/dL (74-99); Phosphorus 2.7 mg/dL (2.5-4.5); Sodium 136 mmol/L (137-145); Total Protein 5.7 g/dL (6.3-8.2)
[2018-06-25 22:07] LABS: Creatine Kinase MB 0.6 ng/mL (0.0-2.4); Troponin I 0.017 ng/mL (0.000-0.034)
--- NOTE | 2018-06-25 22:46 | CT ---
EXAMINATION TYPE: CT brain wo con DATE OF EXAM: 06/25/2018 COMPARISON: None HISTORY: Weakness. CT DLP: 1105.4 mGycm Automated exposure control for dose reduction was used. FINDINGS: There is mild cerebral atrophy. There is no mass effect nor midline shift. There is no sign of intrac ranial hemorrhage. There is some white matter hypodensity around the frontal horns of the lateral marlene tricles slightly more on the right side. Calvarium is intact. IMPRESSION: MILD ATROPHY. CHRONIC SMALL VESSEL ISCHEMIA. NO ACUTE INTRACRANIAL ABNORMALITY.
[2018-06-25] MEDS ORDERED: SODIUM CHLORIDE 0.9% 1,000 ML IV ONE (23:31)
[2018-06-25] MEDS ORDERED: cefTRIAXone 2,000 MG in SODIUM CHLORIDE 0.9% 100 ML IVPB STA (23:32)
[2018-06-25] MEDS ORDERED: NON-FORMULARY DRUG (Naproxen Sodium 220 MG) PO PRN (23:52)
[2018-06-26 01:04] LABS: Appearance,Urine Cloudy (Clear); Bilirubin,Urine Negative (Negative); Blood,Urine Small (Negative); Color,Urine Yellow; Glucose,Urine (UA) Negative (Negative); Ketones,Urine 2+ (Negative); Leukocyte Esterase,Urine Large (Negative); Mucus,Urine Few /hpf; Nitrite,Urine Negative (Negative); Protein,Urine 1+ (Negative); RBC,Urine 21 /hpf (0-5); Specific Gravity,Urine 1.013 (1.001-1.035); Squamous Epithelial Cell,Urine 2 /hpf (0-4); WBC,Urine >182 /hpf (0-5)
[2018-06-26] MEDS: ASPIRIN 325 MG TAB PO SCH (10:46)
[2018-06-26] MEDS: MELOXICAM 7.5 MG TAB PO SCH (10:46)
[2018-06-26] MEDS: MODAFINIL 200 MG TAB PO SCH (10:47)
[2018-06-26] MEDS: LORATADINE 10 MG TAB PO SCH (10:47)
[2018-06-26] MEDS: ENOXAPARIN 40 MG/0.4 ML SYRINGE SQ SCH (10:48)
[2018-06-26] MEDS: MULTIVITAMINS, THERA 1 EACH TAB PO SCH (13:39)
[2018-06-26] MEDS ORDERED: POTASSIUM CHLORIDE ER 20 MEQ TAB.ER PO STA (15:01)
[2018-06-26] MEDS ORDERED: SODIUM CHLORIDE 0.9% 1,000 ML IV SCH (15:45)
--- NOTE | 2018-06-26 16:45 | HP ---
HISTORY AND PHYSICAL CHIEF COMPLAINT: Fall at home. HISTORY OF PRESENT ILLNESS: This is a 72-year-old gentleman presents to the emergency room because of fall at home. The patient said he had got up to the bathroom and as he was trying to get off the lucho his legs gave out. He fell to the floor. He denied any associated symptoms of dizziness, headache. He did not hit his head. However the ER still did a CAT scan of the brain which was reported negative. The patient was seen by me earlier in the office today because of a temperature for the past couple of days. A urine dipstick in the office showed minimal leukocyte esterase, negative nitrate, some ketones and protein in the urine. The patient's urine was sent for culture. Stat chest x-ray was unremarkable. Patient's CBC revealed mildly elevated white count of 12,300. The patient in view of this was ordered Levaquin. The patient had not picked up the medication as prior to presenting to the emergency room. The patient in the ER is noted to have a temperature 101.6 and a white count 11.7. Again, negative chest x-ray. The patient was admitted to the hospital in view of that. No other injuries noted. The patient has had previous cellulitis of the lower legs, but there is no evidence of it. The patient denies any other symptoms. He does have a chronic back pain. At the time of this evaluation this morning he is feeling well, much better. He continues to have back pain, not localized to one or the other side. He does not have fever this morning. No associated nausea, vomiting, diarrhea. The patient's urinalysis, which was obtained after hospitalization, now does show significant amount of white cell, greater than 182, negative nitrate. The patient had been started on Rocephin last night. No blood cultures apparently drawn by ER. Lactic acid run in the ER was normal. PAST MEDICAL HISTORY: Past medical history is primarily significant for cellulitis of lower leg with chronic venous stasis. He does have a support stocking now. History of morbid obesity, history of BPH with previous bladder surgery. Degenerative arthritis in the knees with a previous right knee surgery. No history of any lung disease, liver disease, kidney disease, ulcers, TB, hepatitis. No history of any rheumatic fever, myocardial infarction, or CVA. Does have history of some hypersomnolence during the daytime for which he takes medication with help. 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 PAST SURGICAL HISTORY: Total knee arthroplasty left knee, Maloplasty right knee, TURP, right carpal tunnel syndrome and abdominal wall lipoma excision. PERSONAL HISTORY: Former smoker, used to smoke about 5 cigarettes a day. The patient used to smoke a pack per day for about 5 years. Alcohol none. SOCIAL HISTORY: Patient , lives with his spouse. FAMILY MEDICAL HISTORY: Father at the age of 67 of colon cancer. Mother at age 91 of ASHD. Brother 75, , etiology unknown. A brother 71 in adequate health. A sister 81 in adequate health. A sister 75 in adequate health. A sister 74 , etiology unknown. The patient has one daughter, 41, with history of pulmonary embolism and obesity. REVIEW OF SYSTEMS: NEURO: Denies any headaches, dizziness. No double vision or blurred vision. No symptoms of TIA, syncope, seizures. PSYCH: No anxiety, depression. CARDIAC: No chest pain, angina, palpitations. RESPIRATORY: No shortness of breath, cough, hemoptysis. He has a mild head cold. GI: No nausea, vomiting, abdominal pain, diarrhea, constipation, hematochezia, melena. : No symptoms of dysuria, hematuria. Does have some frequency. EXTREMITIES: Pain mild. Chronic edema. CONSTITUTIONAL: Fever, malaise. Some confusion at times with 2 days ago when he was having a fever. He did not realize he put on his daughter's underwear and then because it was so tight he realized that. PHYSICAL EXAMINATION: Pleasant gentleman present. No distress. Vital signs at this morning are stable. The patient is afebrile. Pulse is 76, respirations 18, blood pressure 130/70. HEENT: Normocephalic. Neck is supple. Pupils reactive. Nostrils clear. Oral cavity is moist. Ears reveal no drainage. Neck reveals no JVD, carotid bruits or thyromegaly. Chest is clear to auscultation and percussion. CARDIAC: Normal S1, S2 with no gallops, murmurs, or rubs. ABDOMEN: Soft. No palpable masses. Bowel sounds normal. No organomegaly. No abdominal bruits. No CVA tenderness. Extremities reveal trace edema. Stigma of some chronic venous stasis changes. NEUROLOGIC: Awake, alert, oriented x3 with well-coordinated movements. LABORATORY ASSESSMENT: CBC which revealed hemoglobin of 11.7. Sodium 136 and glucose of 125. Urinalysis greater than 182 white cells and 182 RBCs. Negative nitrate. ASSESSMENT: 1. Urinary tract infection. 2. Previous history of TURP. 3. Morbid obesity. PLAN: The patient at present is stable. Continue present medical regimen with IV Rocephin. Await urine culture results. If the patient remains stable in the next 48 hours, he will be discharged home. MMODL / IJN: [id number] /
[2018-06-26] MEDS: 0.9% NACL WITH KCL 40 MEQ/L 1,000 ML IV SCH (19:42)
[2018-06-26] MEDS: DOXAZOSIN 4 MG TAB PO SCH (20:55)
[2018-06-27] MEDS: ENOXAPARIN 40 MG/0.4 ML SYRINGE SQ SCH (09:05)
[2018-06-27] MEDS: MELOXICAM 7.5 MG TAB PO SCH (09:05)
[2018-06-27] MEDS: ASPIRIN 325 MG TAB PO SCH (09:05)
[2018-06-27] MEDS: MODAFINIL 200 MG TAB PO SCH (09:06)
[2018-06-27] MEDS: LORATADINE 10 MG TAB PO SCH (09:07)
[2018-06-27 10:42] LABS: HCT 39.1 % (39.0-53.0); HGB 12.8 gm/dL (13.0-17.5); MCH 31.6 pg (25.0-35.0); MCHC 32.7 g/dL (31.0-37.0); MCV 96.6 fL (80.0-100.0); Mean Platelet Volume 6.9; Platelet Count 211 k/uL (150-450); RBC 4.05 m/uL (4.30-5.90); RDW 13.3 % (11.5-15.5); WBC 6.2 k/uL (3.8-10.6)
[2018-06-27 10:54] LABS: Anion Gap 4 mmol/L; Blood Urea Nitrogen 13 mg/dL (9-20); Calcium 8.4 mg/dL (8.4-10.2); Carbon Dioxide 26 mmol/L (22-30); Chloride 107 mmol/L (98-107); Glucose 130 mg/dL (74-99); Potassium 4.1 mmol/L (3.5-5.1); Sodium 137 mmol/L (137-145)
--- NOTE | 2018-06-27 11:32 | P.PN ---
Subjective Progress Note Date: 06/27/18 Principal diagnosis: Urine tract infection This 72-year-old gentleman was admitted to the hospital after a mechanical fall at home. He was unable to stand without assistance. EMS was brought in. Patient had a temperature of 10 2. at home. In the emergency room he had a temperature 101.6. Vitals were stable otherwise. Patient had been seen by me earlier in the day and work up including a CBC chest x-ray I urine analysis were fairly unremarkable. His urinalysis was showing small esterase negative nitrate. He was placed on Levaquin urine culture results. Patient had still not picked up the prescription from the pharmacy when this about fall occurred. The temperature in the office was 99. The patient following admission started on IV Rocephin hydration. Urine analysis subsequently obtained reveals numerous white cells and red cells and negative nitrate. He is awaiting culture results. He has not had a temperature since admission. He feels much better today his back pain is improved. The back pain is not an acute process at 6 chronic issue. He had exacerbation laying in the bed yesterday. Patient appears much improved. His been up walking to the bathroom. He uses a walker. REVIEW OF SYSTEMS: Neuro: Denies any headaches dizziness. Psych: Denies anxiety depression feels oriented. Cardiac: Denies chest pain and angina palpitations. Respiratory: Denies shortness of breath cough. GI: Denies nausea vomiting or abdominal pain. No diarrhea or constipation, no bowel movement yet. : Denies dysuria hematuria. Extremities: Denies pain. No edema. Skin: Intact. Constitutional: No fever, chills. Objective - Vital Signs Vital signs: Vital Signs Temp 98.2 F 06/27/18 07:00 Pulse 77 06/27/18 07:00 Resp 18 06/27/18 03:14 BP 144/90 06/27/18 07:00 Pulse Ox 95 06/27/18 07:00 Intake & Output 06/26/18 06/27/18 06/27/18 18:59 06:59 18:59 Weight 132.449 kg Other: Voiding Method Toilet Toilet # Voids 5 3 # Bowel Movements 2 PHYSICAL EXAMINATION: Cooperative, at present in no acute distress. HEENT: Neck supple. No JVD. Chest: Clear to auscultation percussion. Cardiac: Normal S1-S2 no gallops no murmur . Abdomen: Soft bowel sounds present. Extremities: No edema no tenderness Neurologically: Awake, alert, oriented with well-coordinated movements. - Labs CBC & Chem 7: 06/27/18 09:51 06/27/18 09:51 Labs: Abnormal Lab Results - Last 24 Hours (Table) 06/27/18 06/27/18 Range/Units 09:51 09:51 RBC 4.05 L (4.30-5.90) m/uL Hgb 12.8 L (13.0-17.5) gm/dL Glucose 130 H (74-99) mg/dL Microbiology - Last 24 Hours (Table) 06/26/18 00:40 Urine Culture - Final Urine,Clean Catch Aerococcus urinae 06/25/18 20:21 Blood Culture - Preliminary Blood No Growth after 24 hours Assessment and Plan Assessment: ASSESSMENT: 1. Urinary tract infection with associated fever. 2. Morbid Obesity. 3. Chronic venous stasis. 4. Chronic low back pain. PLAN: Continue present medical regimen with Rocephin. Await culture results. Patient to continue increasing mobility discharge plan for morning.
[2018-06-27] MEDS: MULTIVITAMINS, THERA 1 EACH TAB PO SCH (11:57)
[2018-06-27] MEDS: 0.9% NACL WITH KCL 40 MEQ/L 1,000 ML IV SCH (11:58)
[2018-06-27] MEDS: ACETAMINOPHEN TAB 325 MG TAB PO PRN (20:25)
[2018-06-27] MEDS: DOXAZOSIN 4 MG TAB PO SCH (20:53)
[2018-06-28 07:39] LABS: Basophils % (A) 0 %; Eosinophils # (A) 0.2 k/uL (0-0.7); Eosinophils % (A) 2 %; HCT 41.2 % (39.0-53.0); HGB 13.2 gm/dL (13.0-17.5); Lymphocytes # (A) 0.7 k/uL (1.0-4.8); Lymphocytes % (A) 8 %; MCH 30.6 pg (25.0-35.0); MCV 95.7 fL (80.0-100.0); Mean Platelet Volume 6.8; Monocytes # (A) 0.5 k/uL (0-1.0); Monocytes % (A) 6 %; Neutrophils % (A) 81 %; Platelet Count 261 k/uL (150-450); RDW 13.1 % (11.5-15.5); WBC 8.7 k/uL (3.8-10.6)
[2018-06-28] MEDS: LORATADINE 10 MG TAB PO SCH (08:08)
[2018-06-28] MEDS: ASPIRIN 325 MG TAB PO SCH (08:08)
[2018-06-28] MEDS: MELOXICAM 7.5 MG TAB PO SCH (08:10)
[2018-06-28] MEDS: MODAFINIL 200 MG TAB PO SCH (08:10)
[2018-06-28] MEDS: ENOXAPARIN 40 MG/0.4 ML SYRINGE SQ SCH (08:11)
[2018-06-28] MEDS: 0.9% NACL WITH KCL 40 MEQ/L 1,000 ML IV SCH (08:11)
[2018-06-28] MEDS ORDERED: SENNOSIDES 8.6 MG TAB PO PRN (08:18)
[2018-06-28] MEDS: MULTIVITAMINS, THERA 1 EACH TAB PO SCH (12:14)
[2018-06-28] MEDS: ACETAMINOPHEN TAB 325 MG TAB PO PRN (21:57)
--- NOTE | 2018-06-28 22:38 | PN ---
PROGRESS NOTE ATTENDING PHYSICIAN: Dr. Asuncion Gaona. CHIEF COMPLAINT: Re-evaluation. HISTORY OF PRESENT ILLNESS: This gentleman was admitted to the hospital with fever, only source suspected was urinary tract infection. The patient's urine culture is growing Aerococcus urinae. No sensitivities available. The patient is on IV Rocephin. The patient did have again a temperature last night. No other source noted. IV site does not reveal any suggestion of phlebitis. Lungs are clear. The patient otherwise looks fairly comfortable, in no distress. He does not appear ill at present. The temperature was last night. REVIEW OF SYSTEMS: NEURO: Denies any headaches or dizziness. PSYCH: No anxiety. CARDIAC: No chest pain, angina, or palpitations. RESPIRATORY: No shortness of breath, cough, hemoptysis. GI: No nausea, vomiting, abdominal pain, diarrhea. No bowel movement. : No symptoms of dysuria or hematuria. EXTREMITIES: Denies pain. BACK: Feels better. CONSTITUTIONAL: No fever or chills. PHYSICAL EXAMINATION: GENERAL: Pleasant gentleman, at present in no distress. VITAL SIGNS: Temperature 99.8, pulse 92, respirations 16, blood pressure was 189/78. As mentioned above, he had a temperature of 101.8 last evening. HEENT: Normocephalic. NECK: No JVD. CHEST: Clear to auscultation and percussion. CARDIAC: Normal S1, S2 with no gallops or murmurs. Regular rhythm. ABDOMEN: Soft. No CVA tenderness. EXTREMITIES: Trace edema. NEUROLOGIC: Awake, alert, oriented with well-coordinated movements. LABORATORY ASSESSMENT: CBC which was normal white count. The patient's urine culture done as an outpatient the day he was admitted is growing streptococcus, not group D. Sensitive to Rocephin and Levaquin. ASSESSMENT: 1. Urinary tract infection. 2. Continued intermittent fever. 3. Morbid obesity. PLAN: Continue present medical regimen. Patient's condition discussed with the patient. Prognosis is guarded. We will get an ultrasound of the bladder and kidneys. He has had a previous history of BPH surgery. If the patient continues to spike fevers, we will ask ID to see. Meanwhile continue treatment. MMODL / IJN: [id number] /
[2018-06-28] MEDS: DOXAZOSIN 4 MG TAB PO SCH (22:41)
--- NOTE | 2018-06-28 23:07 | US ---
EXAMINATION TYPE: US kidneys/renal and bladder DATE OF EXAM: 06/28/2018 COMPARISON: NONE CLINICAL HISTORY: uti /back pain. Back pain. EXAM MEASUREMENTS: Right Kidney: 10.4 x 5.4 x 4.7 cm Left Kidney: 12.0 x 6.3 x 6.6 cm Right Kidney: No hydronephrosis or masses seen Left Kidney: Echogenic areas seen. Bladder: Anechoic Bilateral Jets seen: No There is no evidence for hydronephrosis at this point in time. No masses are identified. The urinary bladder is anechoic. IMPRESSION: There is slight fullness of the left renal collecting system. This is also demonstrated on the CT sca n of 01/18/2018. We could not demonstrate ureteral jets. There is a 1 cm echogenic focus in the interp olar left kidney that could be nonobstructing calculus. There is very slight left-sided hydronephrosi s there is probably improved compared to the obstruction seen on the CT scan of 01/18/2018.
[2018-06-29] MEDS: 0.9% NACL WITH KCL 40 MEQ/L 1,000 ML IV SCH (04:16)
--- NOTE | 2018-06-29 09:27 | P.CONS ---
History of Present Illness - Reason for Consult Consult date: 06/29/18 Fever/UTI - History of Present Illness This is a 72-year-old male patient who gives history of vague symptoms that his stomach was not feeling right starting around Thursday of last week. He denies having any nausea or vomiting, no diarrhea. He had 2 bowel movements on Thursday that were normal consistency. He states he had a low-grade fever of 99 at home. He denies having any body aches joint aches, runny nose, sore throat or cough. He does relate that he had an episode of a severe headache that lasted about 10 seconds on while he was driving resolved without treatment. He does not usually get headaches. He has had decreased appetite while in the hospital but thinks this is more related to the food. He denies frequent urinary tract infections but does state that he has chronic prostate problems causing it difficult to start urine flow and to completely empty his bladder. He denies flank pain. He states he saw Dr. Gaona on Thursday afternoon and was given an antibiotic but he did not get this filled. In Dr. Gaona's office, urine dipstick showed minimal leukocyte esterase , negative nitrate, some ketones and protein in the urine and his urine was sent for culture. Chest x-ray was unremarkable. Later that evening, patient states he got up to the bathroom was starting to get up from the toilet and felt that his thighs were not strong enough but he walked about 4 feet in the hallway and then let himself slight to the floor. His and daughter were unable to get him to a standing position and 911 was called. Per department and EMS came and found that his blood pressure was high and his temperature was 102.6. His white count was 11.7, creatinine 0.73. Electrolytes and liver function tests within normal limits. Influenza testing was negative. His urinalysis was cloudy, protein 1+, ketones 2+, blood small, leukoesterase large , WBCs greater than 182. TSH was 0.173 and troponin 0.017. Chest x-ray showed no acute cardiopulmonary disease. CAT scan of the brain showed mild atrophy. Chronic small vessel ischemia. No acute intracranial abnormality. X-ray of the pelvis showed no acute abnormality. No fracture. Patient was admitted to the [facility] floor and started on ceftriaxone. Blood culture is no growth after 24 hours and blood culture obtained on June 25 is no growth at 72 hours. Urine culture from June 25 showing Aerococcus urinae and sensitivity is not been finalized. Renal ultrasound shows slight fullness of the left renal collecting system. This was demonstrated on the CAT scan of December 2017. Cannot demonstrate ureteral jets. 1 cm echogenic focus in the interpolar left kidney could be nonobstructing calculus. Very slight left-sided hydronephrosis with probable improvement compared to December. Patient had CAT scan of the abdomen and pelvis ordered in December [address] Joy for hematuria and flank pain. He does have a history of TURP, lithotripsy and right ureteral stent. Patient is still having fever 101.4 last evening. He states he is not feeling any better since he has been on antibiotics. There is noted improvement of his white count. There is a consult in place for Dr. Joy. Review of Systems All systems: negative Constitutional: Reports fatigue, Reports weakness, Denies chills, Denies fever, Denies poor appetite, Denies weight loss Eyes: denies blurred vision, denies pain Ears, nose, mouth and throat: Denies dysphagia, Denies headache, Denies hoarseness, Denies mouth pain, Denies nasal congestion, Denies nasal discharge, Denies sore throat, Denies vertigo Cardiovascular: Reports decreased exercise tolerance, Reports dyspnea on exertion, Denies chest pain, Denies edema, Denies leg edema, Denies lightheadedness, Denies palpitations, Denies shortness of breath, Denies syncope Respiratory: Denies cough, Denies cough with sputum, Denies dyspnea, Denies excessive sputum, Denies hemoptysis, Denies home oxygen, Denies wheezing Gastrointestinal: Denies abdominal pain, Denies constipation, Denies diarrhea, Denies loss of appetite, Denies nausea, Denies vomiting Genitourinary: Reports urinary hesitancy, Reports urinary retention, Denies dysuria, Denies flank pain, Denies urinary frequency Musculoskeletal: Reports gait dysfunction, Reports muscle weakness, Denies frequent falls, Denies myalgias Integumentary: Denies pruritus, Denies rash, Denies wounds Neurological: Reports gait dysfunction, Denies aphasia, Denies change in mentation, Denies change in speech, Denies head injury, Denies numbness, Denies seizures, Denies weakness Psychiatric: Denies anxiety, Denies depression Endocrine: Denies fatigue, Denies weight change Past Medical History Past Medical History: Osteoarthritis (OA), Prostate Disorder, Skin Disorder, Sleep Apnea/CPAP/BIPAP Additional Past Medical History / Comment(s): PRE-CA SKIN LESIONS; BACK PAIN; HX RT RENAL CALCULUS, cellulitis of the lower legs with chronic venous stasis, morbid obesity, benign prostatic hypertrophy, obstructive sleep apnea on CPAP, gastroesophageal reflux disease, chronic back pain secondary to degenerative disc disease History of Any Multi-Drug Resistant Organisms: MRSA Year Discovered:: 2014 MDRO Source:: finger Past Surgical History: Joint Replacement, Orthopedic Surgery Additional Past Surgical History / Comment(s): LT TOTAL KNEE; RT KNEE MAKOPLASTY ; ABD LIPOMA REMOVED; RT RENAL CALCULUS LITHOTRIPSY, RT URETERAL STENT, TURP Past Anesthesia/Blood Transfusion Reactions: No Reported Reaction Past Psychological History: No Psychological Hx Reported Smoking Status: Former smoker Past Alcohol Use History: None Reported Additional Past Alcohol Use History / Comment(s): Patient was a smoker and quit in 1988. No illicit drug use or alcohol use. He lives at home with his . 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 He denies any recent travel or significant hobbies. He has 1 dog and 2 cats in the home. 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 Past Drug Use History: None Reported - Past Family History Father Family Medical History: Cancer, Myocardial Infarction (MT) Medications and Allergies Home Medications Medication Instructions Recorded Confirmed Type Aspirin 325 mg PO DAILY 10/28/13 06/25/18 History Celecoxib [CeleBREX] 200 mg PO DAILY 10/28/13 06/25/18 History Doxazosin [Cardura] 8 mg PO HS 10/28/13 06/25/18 History Multivitamins, Thera [Multivitamin] 1 tab PO DAILY 10/28/13 06/25/18 History Fexofenadine HCl [Mi Allergy] 180 mg PO DAILY 10/11/14 06/25/18 History Modafinil [Provigil] 300 mg PO DAILY 10/11/14 06/25/18 History Naproxen Sodium [Aleve] 220 mg PO DAILY PRN 02/09/17 06/25/18 History Allergies Allergy/AdvReac Type Severity Reaction Status Date / Time No Known Allergies Allergy Verified 06/25/18 21:34 Physical Exam Vitals: Vital Signs Temp Pulse Pulse Resp BP Pulse Ox 06/28/18 23:26 99.3 F 86 16 164/85 93 L 06/28/18 21:15 101.4 F H 90 96 16 173/90 06/28/18 15:00 99.2 F 82 16 182/75 95 Intake and Output 06/28/18 06/29/18 06/29/18 22:59 06:59 14:59 Intake Total 200 Balance 200 Intake: Intake, IV Titration 200 Amount 0.9% NaCl with KCl 40 Meq 200 /l 1,000 ml @ 50 mls/hr IV .Q20H EDWIN Rx#: [id number] Other: # Voids 2 5 Gen: This is a morbidly obese 72-year-old male. He has found ambulating from the bathroom to bed with a walker. Gait appears to be steady. Patient does have difficulty with mobility getting into bed. HEENT: Head is atraumatic, normocephalic. Pupils equal, round. Sclerae is anicteric. Nares is clear. Oral mucous membranes are moist. No oropharynx erythema or edema. No thrush noted. NECK: Supple. No JVD. No lymphadenopathy. No thyromegaly. LUNGS: Clear to auscultation. No wheezes or rhonchi. No intercostal retractions. HEART: Regular rate and rhythm. No murmur. ABDOMEN: Morbidly obese. Soft. Bowel sounds are present. No masses. Mild right upper quadrant tenderness. No CVA tenderness bilaterally. EXTREMITIES: Trace bilateral pedal edema. No calf tenderness. Dorsalis pedis weak bilaterally. Onychomycosis bilaterally. NEUROLOGICAL: Patient is awake, alert and oriented x3. Cranial nerves 2 through 12 are grossly intact. Results Results: Laboratory Results WBC 8.7 k/uL (3.8-10.6) 06/28/18 07:16 RBC 4.30 m/uL (4.30-5.90) 06/28/18 07:16 Hgb 13.2 gm/dL (13.0-17.5) 06/28/18 07:16 Hct 41.2 % (39.0-53.0) 06/28/18 07:16 MCV 95.7 fL (80.0-100.0) 06/28/18 07:16 MCH 30.6 pg (25.0-35.0) 06/28/18 07:16 MCHC 32.0 g/dL (31.0-37.0) 06/28/18 07:16 RDW 13.1 % (11.5-15.5) 06/28/18 07:16 Plt Count 261 k/uL (150-450) 06/28/18 07:16 Neutrophils % 81 % 06/28/18 07:16 Lymphocytes % 8 % 06/28/18 07:16 Monocytes % 6 % 06/28/18 07:16 Eosinophils % 2 % 06/28/18 07:16 Basophils % 0 % 06/28/18 07:16 Neutrophils # 7.0 k/uL (1.3-7.7) 06/28/18 07:16 Lymphocytes # 0.7 k/uL (1.0-4.8) L 06/28/18 07:16 Monocytes # 0.5 k/uL (0-1.0) 06/28/18 07:16 Eosinophils # 0.2 k/uL (0-0.7) 06/28/18 07:16 Basophils # 0.0 k/uL (0-0.2) 06/28/18 07:16 PT 10.7 sec (9.0-12.0) 06/25/18 21:18 INR 1.0 (<1.2) 06/25/18 21:18 APTT 25.9 sec (22.0-30.0) 06/25/18 21:18 Sodium 137 mmol/L (137-145) 06/27/18 09:51 Potassium 4.1 mmol/L (3.5-5.1) 06/27/18 09:51 Chloride 107 mmol/L (98-107) 06/27/18 09:51 Carbon Dioxide 26 mmol/L (22-30) 06/27/18 09:51 Anion Gap 4 mmol/L 06/27/18 09:51 BUN 13 mg/dL (9-20) 06/27/18 09:51 Creatinine 0.70 mg/dL (0.66-1.25) 06/27/18 09:51 Est GFR (CKD-EPI)AfAm >90 (>60 ml/min/1.73 sqM) 06/27/18 09:51 Est GFR (CKD-EPI)NonAf >90 (>60 ml/min/1.73 sqM) 06/27/18 09:51 Glucose 130 mg/dL (74-99) H 06/27/18 09:51 Plasma Lactic Acid [place] 0.9 mmol/L (0.7-2.0) 06/25/18 21:18 Calcium 8.4 mg/dL (8.4-10.2) 06/27/18 09:51 Phosphorus 2.7 mg/dL (2.5-4.5) 06/25/18 21:18 Magnesium 2.0 mg/dL (1.6-2.3) 06/25/18 21:18 Total Bilirubin 1.0 mg/dL (0.2-1.3) 06/25/18 21:18 AST 20 U/L (17-59) 06/25/18 21:18 ALT 28 U/L (21-72) 06/25/18 21:18 Alkaline Phosphatase 68 U/L (38-126) 06/25/18 21:18 Total Creatine Kinase 69 U/L (55-170) 06/25/18 21:18 CK-MB (CK-2) 0.6 ng/mL (0.0-2.4) 06/25/18 21:18 CK-MB (CK-2) Rel Index 0.9 06/25/18 21:18 Troponin I 0.017 ng/mL (0.000-0.034) 06/25/18 21:18 Total Protein 5.7 g/dL (6.3-8.2) L 06/25/18 21:18 Albumin 3.3 g/dL (3.5-5.0) L 06/25/18 21:18 TSH 0.163 mIU/L (0.465-4.680) L 06/25/18 21:18 Urine Color Yellow 06/26/18 00:40 Urine Appearance Cloudy (Clear) 06/26/18 00:40 Urine pH 6.0 (5.0-8.0) 06/26/18 00:40 Ur Specific [place] 1.013 (1.001-1.035) 06/26/18 00:40 Urine Protein 1+ (Negative) H 06/26/18 00:40 Urine Glucose (UA) Negative (Negative) 06/26/18 00:40 Urine Ketones 2+ (Negative) H 06/26/18 00:40 Urine Blood Small (Negative) H 06/26/18 00:40 Urine Nitrite Negative (Negative) 06/26/18 00:40 Urine Bilirubin Negative (Negative) 06/26/18 00:40 Urine Urobilinogen 3.0 mg/dL (<2.0) 06/26/18 00:40 Ur Leukocyte Esterase Large (Negative) H 06/26/18 00:40 Urine RBC 21 /hpf (0-5) H 06/26/18 00:40 Urine WBC >182 /hpf (0-5) H 06/26/18 00:40 Ur Squamous Epith Cells 2 /hpf (0-4) 06/26/18 00:40 Urine Mucus Few /hpf (None) H 06/26/18 00:40 Influenza Type A RNA Not Detected (Not Detectd) 06/25/18 20:40 Influenza Type B (PCR) Not Detected (Not Detectd) 06/25/18 20:40 CBC & Chem 7: 06/28/18 07:16 06/27/18 09:51 Labs: Microbiology - Last 24 Hours (Table) 06/25/18 20:21 Blood Culture - Preliminary Blood No Growth after 72 hours 06/27/18 20:42 Blood Culture - Preliminary Blood No Growth after 24 hours 06/27/18 20:24 Blood Culture - Preliminary Blood No Growth after 24 hours Assessment and Plan Plan: This is a 72-year-old male patient who has chronic prostate problems with urinary retention and difficulty emptying his bladder, presents with signs of sepsis and UTI. Urine culture is currently showing Aerococcus urinae and sensitivity is pending. Patient has been on Rocephin without what he feels is significant improvement. There is noted improvement of his white count. Ultrasound did not show any obstructive stone only slight left hydronephrosis that is improved from previous study in December. Blood culture showing no growth at 72 hours and 24 hours. Patient is currently on Rocephin and will be transitioned to Unasyn. CAT scan of the abdomen and pelvis with contrast ordered. Continue supportive care. Further recommendations as patient progresses. The above dictated assessment and findings were discussed with Dr. Cha. The impression and plan of care have been directed as dictated. Lidia Schwartz nurse practitioner acting as scribe for Dr. Cha.
[2018-06-29] MEDS: MELOXICAM 7.5 MG TAB PO SCH (10:06)
[2018-06-29] MEDS: ENOXAPARIN 40 MG/0.4 ML SYRINGE SQ SCH (10:07)
[2018-06-29] MEDS: LORATADINE 10 MG TAB PO SCH (10:07)
[2018-06-29] MEDS: ASPIRIN 325 MG TAB PO SCH (10:07)
[2018-06-29] MEDS: IOPAMIDOL-300 CONTRAST 30 ML VIAL (ORAL USE) PO PRN ×2 (10:08→11:19)
[2018-06-29] MEDS: MODAFINIL 200 MG TAB PO SCH (10:08)
[2018-06-29] MEDS: AMPICILLIN-SULBACTAM 3 GM in SODIUM CHLORIDE 0.9% 100 ML IVPB SCH ×3 (13:06→22:47)
[2018-06-29] MEDS: MULTIVITAMINS, THERA 1 EACH TAB PO SCH (13:06)
--- NOTE | 2018-06-29 15:33 | P.CON ---
Consult Note - . Consult date: 06/29/18 Assessment/Plan:: This is a 72-year-old male patient who gives history of vague symptoms that his stomach was not feeling right starting around Thursday of last week. He denies having any nausea or vomiting, no diarrhea. He had 2 bowel movements on Thursday that were normal consistency. He states he had a low-grade fever of 99 at home. He denies having any body aches joint aches, runny nose, sore throat or cough. He does relate that he had an episode of a severe headache that lasted about 10 seconds on while he was driving resolved without treatment. He does not usually get headaches. He has had decreased appetite while in the hospital but thinks this is more related to the food. He denies frequent urinary tract infections but does state that he has chronic prostate problems causing it difficult to start urine flow and to completely empty his bladder. He denies flank pain. He states he saw Dr. Gaona on Thursday afternoon and was given an antibiotic but he did not get this filled. In Dr. Gaona's office, urine dipstick showed minimal leukocyte esterase , negative nitrate, some ketones and protein in the urine and his urine was sent for culture. Chest x-ray was unremarkable. Later that evening, patient states he got up to the bathroom was starting to get up from the toilet and felt that his thighs were not strong enough but he walked about 4 feet in the hallway and then let himself slight to the floor. His and daughter were unable to get him to a standing position and 911 was called. Per department and EMS came and found that his blood pressure was high and his temperature was 102.6. His white count was 11.7, creatinine 0.73. Electrolytes and liver function tests within normal limits. Influenza testing was negative. His urinalysis was cloudy, protein 1+, ketones 2+, blood small, leukoesterase large , WBCs greater than 182. TSH was 0.173 and troponin 0.017. Chest x-ray showed no acute cardiopulmonary disease. CAT scan of the brain showed mild atrophy. Chronic small vessel ischemia. No acute intracranial abnormality. X-ray of the pelvis showed no acute abnormality. No fracture. Patient was admitted to the [facility] floor and started on ceftriaxone. Blood culture is no growth after 24 hours and blood culture obtained on June 25 is no growth at 72 hours. Urine culture from June 25 showing Aerococcus urinae and sensitivity is not been finalized. Renal ultrasound shows slight fullness of the left renal collecting system. This was demonstrated on the CAT scan of December 2017. Cannot demonstrate ureteral jets. 1 cm echogenic focus in the interpolar left kidney could be nonobstructing calculus. Very slight left-sided hydronephrosis with probable improvement compared to December. Patient had CAT scan of the abdomen and pelvis ordered in December [address] Joy for hematuria and flank pain. He does have a history of TURP, lithotripsy and right ureteral stent. Patient is still having fever 101.4 last evening. He states he is not feeling any better since he has been on antibiotics. There is noted improvement of his white count. There is a consult in place for Dr. Joy. Please see the consult note is dictated by nurse practitioner Mrs. Lidia Schwartz. 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 He has a known history of multiple urinary tract infections and history of prior hydronephrosis and nephrolithiasis. Presents feeling very ill with high-grade fevers chills body aches all consistent with sepsis from the urinary system. He was evaluated in the outpatient setting with lack of improvement is been brought into hospital. He does have prior urine cultures with E. coli that is sulfa and quinolone resistant. With hydration he started to feel better but had significant chills and some sweats overnight. He is able to tolerate his food without nausea or emesis but does not like current food quality. The patient relates he is lives in the family with his and adult daughter because he became so weak upon leaving the bathroom and could not get up off the floor he was brought to Hospital by EMS. Relates the weakness is improving. His renal ultrasound is abnormal a computed tomography scan has been requested to evaluate for further obstruction and abnormality and urology consult has been requested given his significant history. Given the Aerococcus has been isolated antibiotic therapy is altered to ampicillin sulbactam, will monitor response to treatment and urological evaluation and treatments. I agree with evaluation, assessment and plan this is Lidia Schwartz.
[2018-06-29] MEDS: ACETAMINOPHEN TAB 325 MG TAB PO PRN (17:02)
--- NOTE | 2018-06-29 18:02 | CT ---
EXAMINATION TYPE: CT abdomen pelvis w con DATE OF EXAM: 06/29/2018 COMPARISON: 01/18/2018 INDICATION: Fever, UTI DLP: 3061 mGycm, Automated exposure control for dose reduction was used. CONTRAST: 100 mL of Isovue 300. Study performed with Oral Contrast TECHNIQUE: Axial images were obtained from above the diaphragm to the pubic rami in the axial plane a t 5 mm thick sections. Reconstructed images are reviewed on the computer in the coronal plane. FINDINGS: Limited CT sections are obtained the lung bases. The lung bases are clear. CT ABDOMEN: Liver: Tiny cyst is likely within the lateral right inferior lobe liver. This measures 0.7 cm. Spleen: Normal Pancreas: Atrophic Adrenal glands: The adrenal glands are normal. Gallbladder: Normal Kidneys: No masses are evident. There is a moderate to prominent left hydronephrosis. Mild perinephri c stranding is present. There is a 0.7 cm calcification in the proximal left ureter accounting for th e left hydronephrosis. Additional nonobstructing renal stones are present on the left. Nonobstructing renal stone is at the inferior pole right kidney measuring 0.3 cm. No cysts are present. Aorta: Normal Inferior vena cava: Normal. CT PELVIS: Loops of bowel within the abdomen and pelvis are normal. There are loops of bowel which are incom pletely distended or lack oral contrast limiting their evaluation. Appendix: Normal as visualized. Urinary bladder: Distended. There appear to be several posterior and inferior urinary bladder diverti culum. The inferior urinary bladder diverticulum likely contains 4 renal calcifications above the pro state. Genitourinary structures: Prostate is prominent. Osseous structures: No suspicious lytic or sclerotic lesions. Facet degenerative changes are within t he lumbar spine. IMPRESSIONS: 1. Moderate to marked left hydronephrosis secondary to a 0.7 cm proximal obstructing left ureteral s tone. Findings were present previously. The hydronephrosis has increased over the interval. A [place] level critical message alert has been initiated for Yan Gaona MD via the [employer] Critical Results System on 06/29/2018 6:00 PM. This message alert has been sent to Yan Gaona MD via the preferences provided by the clinician for the receipt of Radiology Critical Findings. Message ID [id number].
[2018-06-29] MEDS: DOXAZOSIN 4 MG TAB PO SCH (20:56)
--- NOTE | 2018-06-30 03:12 | PN ---
PROGRESS NOTE CHIEF COMPLAINT: Fever. HISTORY OF PRESENT ILLNESS: This is a 72-year-old gentleman who was admitted to the hospital with fever and generalized weakness. Blood cultures are negative. Urine culture is positive. The patient had an ultrasound of the kidney done which showed mild changes and possible kidney stone. The patient is actually feeling fairly well today. He says for the first time he is feeling better. The patient, however, did have a temperature last night. Urine culture had Aerococcus urinae. Also the culture done as an outpatient had Streptococcus gamma, not group D. The patient has been on Rocephin. I asked ID to see the patient, who ordered a CT scan of the abdomen and pelvis. The patient's CT scan does show an obstructive uropathy on the left side. Urology was also consulted, who has yet to see the patient. Meanwhile, the patient is feeling better. He denies any flank pain. He did have some back pain when he came in initially. Fever last night was 101.4. REVIEW OF SYSTEMS: NEURO: Denies any headaches, dizziness. PSYCH: No anxiety. CARDIAC: No chest pain, angina, palpitations. RESPIRATORY: No shortness of breath, cough, hemoptysis. GI: No nausea, vomiting, abdominal pain, diarrhea. No bowel movement yet. : No symptoms of dysuria or hematuria, urgency. Does have some frequency. EXTREMITIES: Denies pain, edema. CONSTITUTIONAL: No fever or chills. PHYSICAL EXAMINATION: Pleasant gentleman, at present in no distress. VITAL SIGNS: Temperature was 98.9 this morning, blood pressure 158/95. Temperature 101.4 last night at 10:15. HEENT: Normocephalic. NECK: No JVD. CHEST: Clear to auscultation and percussion. CARDIAC: Normal S1, S2 with no gallops, murmurs, rubs. ABDOMEN: Soft. Bowel sounds present. No CVA tenderness. EXTREMITIES: Trace edema. NEUROLOGIC: Awake, alert, oriented, with well-coordinated movements. LABORATORY ASSESSMENT: CBC yesterday which was normal. ASSESSMENT: 1. Urinary tract infection. 2. Obstructive uropathy. 3. Morbid obesity. PLAN: The patient is stable. Continue present medical regimen. Patient's condition was discussed with the patient. Prognosis guarded. ID has changed the antibiotic to Unasyn. MMODL / IJN: [id number] /
[2018-06-30] MEDS: 0.9% NACL WITH KCL 40 MEQ/L 1,000 ML IV SCH ×2 (04:36→21:37)
[2018-06-30] MEDS: AMPICILLIN-SULBACTAM 3 GM in SODIUM CHLORIDE 0.9% 100 ML IVPB SCH ×3 (05:05→17:07)
[2018-06-30] MEDS: ACETAMINOPHEN TAB 325 MG TAB PO PRN ×2 (05:05→21:25)
[2018-06-30] MEDS: MODAFINIL 200 MG TAB PO SCH (08:14)
[2018-06-30] MEDS: ENOXAPARIN 40 MG/0.4 ML SYRINGE SQ SCH (08:14)
[2018-06-30] MEDS: LORATADINE 10 MG TAB PO SCH (08:14)
[2018-06-30] MEDS: ASPIRIN 325 MG TAB PO SCH (08:14)
[2018-06-30] MEDS: MELOXICAM 7.5 MG TAB PO SCH (08:14)
[2018-06-30] MEDS: MULTIVITAMINS, THERA 1 EACH TAB PO SCH (08:15)
--- NOTE | 2018-06-30 08:24 | P.PN ---
Subjective Progress Note Date: 06/30/18 Principal diagnosis: Urine tract infection 72-year-old gentleman admitted to the hospital with a fever. No clear source of infection identified clinically. I urine analysis and culture is positive for infection. Patient continued to have fevers daily. The patient does not appear to heal. He did undergo ultrasound of the kidneys and a CAT scan of the abdomen pelvis to evaluate the urological anatomy. Patient is noted to have an obstructive left uropathy due to a kidney stone. The patient seen by urology this morning and is scheduled to undergo a stent placement. Patient is feeling fairly well denies any back pain denies chills he did have a temperature last night and early this morning. He is on an antibiotic changed to Unasyn by ID. REVIEW OF SYSTEMS: Neuro: Denies any headaches dizziness. Psych: Denies anxiety depression feels oriented. Cardiac: Denies chest pain and angina palpitations. Respiratory: Denies shortness of breath cough. GI: Denies nausea vomiting or abdominal pain. No diarrhea or constipation, no bowel movement yet. : Denies dysuria hematuria. Extremities: Denies pain. No edema. Skin: Intact. Constitutional: fever, chills. Objective - Vital Signs Vital signs: Vital Signs Temp 100.1 F H 06/29/18 19:50 Pulse 91 06/29/18 19:50 Resp 18 06/29/18 19:50 BP 137/77 06/29/18 19:50 Pulse Ox 94 L 06/29/18 19:50 Intake & Output 06/29/18 06/30/18 06/30/18 18:59 06:59 18:59 Intake Total 1330 470 Balance 1330 470 Intake: Intake, IV Titration 350 250 Amount 0.9% NaCl with KCl 40 Meq 350 150 /l 1,000 ml @ 50 mls/hr IV .Q20H EDWIN Rx#: [id number] Ampicillin-Sulbactam 3 gm 100 In Sodium Chloride 0.9% 100 ml @ 200 mls/hr IVPB Q6HR EDWIN Rx#:[id number] Oral 980 220 Other: Voiding Method Toilet # Voids 3 10 PHYSICAL EXAMINATION: Cooperative, at present in no acute distress. HEENT: Neck supple. No JVD. Chest: Clear to auscultation percussion. Cardiac: Normal S1-S2 no gallops no murmur . Abdomen: Soft no CVA tendernessbowel sounds present. Extremities: Trace edema no tenderness Neurologically: Awake, alert, oriented with well-coordinated movements. - Labs CBC & Chem 7: 06/28/18 07:16 06/27/18 09:51 Labs: Microbiology - Last 24 Hours (Table) 06/25/18 20:21 Blood Culture - Preliminary Blood No Growth after 96 hours 06/27/18 20:42 Blood Culture - Preliminary Blood No Growth after 48 hours 06/27/18 20:24 Blood Culture - Preliminary Blood No Growth after 48 hours Assessment and Plan Assessment: ASSESSMENT: 1. Urinary tract infection and pyelonephritis. 2. Obstructive uropathy left kidney. 3. Nephrolithiasis. 4. Obesity. PLAN: Continue present medical regimen with IV antibiotics and planned procedure of left kidney drainage with you for a ureteric stent.
[2018-06-30 09:00] LABS: HCT 36.8 % (39.0-53.0); HGB 12.2 gm/dL (13.0-17.5); MCH 31.4 pg (25.0-35.0); MCHC 33.2 g/dL (31.0-37.0); MCV 94.6 fL (80.0-100.0); Mean Platelet Volume 6.6; Platelet Count 283 k/uL (150-450); RBC 3.89 m/uL (4.30-5.90); RDW 13.1 % (11.5-15.5); WBC 12.1 k/uL (3.8-10.6)
[2018-06-30 09:17] LABS: Calcium 8.3 mg/dL (8.4-10.2); Potassium 4.4 mmol/L (3.5-5.1)
--- NOTE | 2018-06-30 09:52 | P.GSCN ---
History of Present Illness Consult date: 06/30/18 Reason for Consult: UTI, Ureteral Calculus Requesting physician: Yan Gaona History of present illness: He is a 72-year-old male with a history of urolithiasis. He was admitted with fever and weakness. Urinalysis was suggestive of a UTI, and a urine culture has shown Aerococcus urinae. A computed tomography scan showed evidence of left hydronephrosis due to a 7 mm left UPJ calculus. He has a history of obstructive voiding symptoms, for which he took doxazosin 8 mg daily. He was treated for recurrent E. coli UTI's. He underwent endoscopic removal of a 1 cm right UPJ calculus, as well as multiple bladder calculi. He underwent a TURP in October 2013, and he continues to experience voiding difficulty including urge incontinence and a weak stream. He was treated for post-op UTIs. Cystoscopy in 2014 revealed residual anterior tissue which may have an obstructing, ball- valve effect. The external sphincter was intact. Review of Systems - Constitutional Reports fever, Reports weakness - Cardiovascular Denies chest pain - Respiratory Denies dyspnea - Gastrointestinal Denies nausea, Denies vomiting - Genitourinary Reports kidney stones, Denies dysuria, Denies hematuria Past Medical History Past Medical History: Osteoarthritis (OA), Prostate Disorder, Skin Disorder, Sleep Apnea/CPAP/BIPAP Additional Past Medical History / Comment(s): PRE-CA SKIN LESIONS; BACK PAIN; HX RT RENAL CALCULUS, cellulitis of the lower legs with chronic venous stasis, morbid obesity, benign prostatic hypertrophy, obstructive sleep apnea on CPAP, gastroesophageal reflux disease, chronic back pain secondary to degenerative disc disease History of Any Multi-Drug Resistant Organisms: MRSA Year Discovered:: 2014 MDRO Source:: finger Past Surgical History: Joint Replacement, Orthopedic Surgery Additional Past Surgical History / Comment(s): LT TOTAL KNEE; RT KNEE MAKOPLASTY ; ABD LIPOMA REMOVED; RT RENAL CALCULUS LITHOTRIPSY, RT URETERAL STENT, TURP Past Anesthesia/Blood Transfusion Reactions: No Reported Reaction Past Psychological History: No Psychological Hx Reported Smoking Status: Former smoker Past Alcohol Use History: None Reported Additional Past Alcohol Use History / Comment(s): Patient was a smoker and quit in 1988. No illicit drug use or alcohol use. He lives at home with his . 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 He denies any recent travel or significant hobbies. He has 1 dog and 2 cats in the home. 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 Past Drug Use History: None Reported - Past Family History Father Family Medical History: Cancer, Myocardial Infarction ([place]) Medications and Allergies Home Medications Medication Instructions Recorded Confirmed Type Aspirin 325 mg PO DAILY 10/28/13 06/25/18 History Celecoxib [CeleBREX] 200 mg PO DAILY 10/28/13 06/25/18 History Doxazosin [Cardura] 8 mg PO HS 10/28/13 06/25/18 History Multivitamins, Thera [Multivitamin] 1 tab PO DAILY 10/28/13 06/25/18 History Fexofenadine HCl [Mi Allergy] 180 mg PO DAILY 10/11/14 06/25/18 History Modafinil [Provigil] 300 mg PO DAILY 10/11/14 06/25/18 History Naproxen Sodium [Aleve] 220 mg PO DAILY PRN 02/09/17 06/25/18 History Allergies Allergy/AdvReac Type Severity Reaction Status Date / Time No Known Allergies Allergy Verified 06/25/18 21:34 Surgical - Exam Vital Signs Temp Pulse Resp BP Pulse Ox 101.6 F H 90 18 161/76 95 06/25/18 19:37 06/25/18 19:37 06/25/18 19:37 06/25/18 19:37 06/25/18 19:37 - General well developed, well nourished, no distress - Respiratory normal respiratory effort - Abdomen Abdomen: soft, non tender, no guarding, no rigid, no rebound - Neurologic normal coordination - Psychiatric oriented to time, oriented to person, oriented to place, speech is normal, memory intact Results - Labs 06/30/18 08:27 06/30/18 08:27 Microbiology - Last 24 Hours (Table) 06/25/18 20:21 Blood Culture - Preliminary Blood No Growth after 96 hours 06/27/18 20:42 Blood Culture - Preliminary Blood No Growth after 48 hours 06/27/18 20:24 Blood Culture - Preliminary Blood No Growth after 48 hours - Imaging CT scan - abdomen: report reviewed, image reviewed Assessment and Plan (1) Hydronephrosis with renal and ureteral calculus obstruction Current Visit: Yes Status: Acute Code(s): N13.2 - HYDRONEPHROSIS WITH RENAL AND URETERAL CALCULOUS OBSTRUCTION SNOMED Code(s): 465973765 (2) Calculus of ureter Current Visit: Yes Status: Acute Code(s): N20.1 - CALCULUS OF URETER SNOMED Code(s): 56657569 (3) Calculus of kidney Current Visit: Yes Status: Acute Code(s): N20.0 - CALCULUS OF KIDNEY SNOMED Code(s): 16454789 (4) Urinary tract infection Current Visit: No Status: Acute Code(s): N39.0 - URINARY TRACT INFECTION, SITE NOT SPECIFIED SNOMED Code(s): 69892368 Plan: Mr. Keene is currently receiving Unasyn for treatment of his Aerococcus UTI. I have suggested he undergo cystoscopy with left ureteral stent insertion later today to relieve the left ureteral obstruction. I discussed the rationale for this with him, along with potential risks which include anesthesia, ureteral injury, and inability to successfully place the stent. He will then be advised to undergo a secondary elective procedure, consisting of cystoscopy, left ureteroscopy with Holmium laser lithotripsy once the infection has cleared. Time with Patient: Greater than 30
[2018-06-30] MEDS ORDERED: IV FLUID CONTINUATION 1,000 ML IV ONE (14:04)
[2018-06-30] MEDS ORDERED: SUCCINYLCHOLINE CHLORIDE 100 MG/5 ML SYR IV ONE (14:35)
[2018-06-30] MEDS ORDERED: LIDOCAINE 1% INJ 10MG/ML (20 ML MDV) ONE (14:35)
[2018-06-30] MEDS ORDERED: fentaNYL (PF) 50 MCG/ML 2 ML AMP ONE (14:35)
[2018-06-30] MEDS ORDERED: PROPOFOL 10 MG/ML 20 ML VIAL IV ONE (14:35)
[2018-06-30] MEDS ORDERED: MIDAZOLAM 2 MG/2 ML VIAL ONE (14:35)
--- NOTE | 2018-06-30 15:32 | P.OP ---
Date of Procedure: 06/30/18 Preoperative Diagnosis: Bladder calculi, left ureteral calculus Postoperative Diagnosis: Same Procedure(s) Performed: Cystoscopy, removal of bladder calculi, left ureteral stent insertion Anesthesia: HAYDERA Surgeon: Chance Joy Estimated Blood Loss (ml): 0 IV fluids (ml): 200 Pathology: other (Bladder calculi, sent for gross analysis only.) Condition: stable Disposition: PACU Indications for Procedure: The patient is a 72-year-old white female admitted with weakness and fever. He has been found to have an Aerococcus UTI, and a computed tomography scan shows evidence of left hydronephrosis due to a 7 mm left UPJ calculus. He now comes for stent placement. Operative Findings: Open prostatic fossa containing several calculi measuring up to 5 mm in size. Successful left ureteral stent placement. Description of Procedure: The patient was taken to the operating room and placed in the dorsolithotomy position, with legs supported in Lucas stirrups. The external genitalia was prepped and draped sterilely. The 30 lens was used to introduce the 22-Martiniquais Stortz cystoscopic sheath through the urethra and into the bladder under direct vision. The prostatic urethra showed evidence of previous TURP, as the entire prostatic fossa was open. Several calculi measuring up to 5 mm in size were seen within the prostatic fossa. The bladder was examined in its entirety. Both ureteral orifices were of normal anatomic location and configuration. No tumors or foreign bodies were seen. 4 of the calculi were removed, but there were several remaining calculi slightly too large to remove via the cystoscope. A 0.035 inch Glidewire was passed through the cystoscope. The left ureteral orifice was cannulated, and the Glidewire was slowly advanced up to the renal pelvis. A 24 cm, 6-Martiniquais double-J ureteral stent was placed over the wire. Proper stent positioning was verified fluoroscopically and endoscopically. The bladder was emptied and the cystoscope removed. The patient tolerated the procedure well was taken to the recovery room in stable condition.
--- NOTE | 2018-06-30 15:58 | FL ---
EXAMINATION TYPE: FL cystogram DATE OF EXAM: 06/30/2018 COMPARISON: CT abdomen and pelvis from yesterday. HISTORY: Obstructing left ureter calculus TECHNIQUE: Fluoroscopy. FINDINGS: Fluoroscopic guidance was provided during retrograde cystogram with left ureter stent inse rtion procedure performed by urologist. A total of 17 seconds of fluoroscopic time was utilized duri ng the procedure and 0 spot images are saved to PACS. IMPRESSION: As Above.
--- NOTE | 2018-06-30 16:47 | CDI ---
Documentation Clarification Form Date: 06/30/2018 4:25:08 PM From: Tresa An RN, CCDS Admit Date: 06/26/2018 10:51:00 AM Patient Name: Daniel Keene Visit Number: [id number] Discharge Date: ATTENTION: The Clinical Documentation Specialists (CDI) and [facility] Coding Staff appreciate your assistance in clarifying documentation. Please respond to the clarification below the line at the bottom and electronically sign. The CDI & [facility] Coding staff will review the response and follow-up if needed. Please note: Queries are made part of the Legal Health Record. If you have any questions, please contact the author of this message via ITS. Dr. Yan Gaona The patient presented with complaints of weakness and fall. He has had fever for 2 days. History/Risk Factors: Urolithiasis, TURP, Clinical Indicators: Present with complaints of fever/chills WBC 11.7 Na 136, Lactic acid 0.9 Urine: Large Leukocyte Esterase, WBC>182, Protein 1+, Urine Culture: Aerococcus urinae Blood cultures: Pending, no growth after 48 hours Vitals signs on admission: 161/76 90 18 101.6 Treatment: ID Consult: Dr. Cha: 06/29/18: Patient present with signs of Sepsis and UTI, Urine culture is showing Aerococcus urinae and sensitivity is pending. Ultrasound did not show any obstructive stone only slight left hydronephrosis. Antibiotics: Rocephin IV Changed to Unasyn IV IV Fluids Urology: Dr. Joy: Admit with fever and weakness noted calculus of kidney with hydronephrosis with renal and ureteral calculus obstruction. UTI. Plan Cystoscopy In your professional opinion, please clarify if these findings signify one of the following conditions, whether the condition is POA, and cause, if known: Condition Sepsis POA due to UTI Sepsis ruled out Other, please specify Unable to determine SIRS Criteria (2 or more of the following may indicate SIRS): -Temperature < 96.8F (36C) or > 101.0F (38.3C) -Heart Rate > 90 bpm -Respiratory Rate > 20 breaths/min or PaCO2 < 32 mmHg -White Blood Cell Count > 12,000 or < 4,000 cells/mm3 or > 10% bands -Lactate >2.0 mmol/L (>4.0 is equivalent to septic shock) (Last Revision: September 2017) MTDD
[2018-06-30] MEDS: DOXAZOSIN 4 MG TAB PO SCH (21:25)
--- NOTE | 2018-06-30 21:52 | P.PN ---
Subjective Progress Note Date: 06/30/18 This is a 72-year-old male patient who gives history of vague symptoms that his stomach was not feeling right starting around Thursday of last week. He denies having any nausea or vomiting, no diarrhea. He had 2 bowel movements on Thursday that were normal consistency. He states he had a low-grade fever of 99 at home. He denies having any body aches joint aches, runny nose, sore throat or cough. He does relate that he had an episode of a severe headache that lasted about 10 seconds on while he was driving resolved without treatment. He does not usually get headaches. He has had decreased appetite while in the hospital but thinks this is more related to the food. He denies frequent urinary tract infections but does state that he has chronic prostate problems causing it difficult to start urine flow and to completely empty his bladder. He denies flank pain. He states he saw Dr. Gaona on Thursday afternoon and was given an antibiotic but he did not get this filled. In Dr. Gaona's office, urine dipstick showed minimal leukocyte esterase , negative nitrate, some ketones and protein in the urine and his urine was sent for culture. Chest x-ray was unremarkable. Later that evening, patient states he got up to the bathroom was starting to get up from the toilet and felt that his thighs were not strong enough but he walked about 4 feet in the hallway and then let himself slight to the floor. His and daughter were unable to get him to a standing position and 911 was called. Per department and EMS came and found that his blood pressure was high and his temperature was 102.6. His white count was 11.7, creatinine 0.73. Electrolytes and liver function tests within normal limits. Influenza testing was negative. His urinalysis was cloudy, protein 1+, ketones 2+, blood small, leukoesterase large , WBCs greater than 182. TSH was 0.173 and troponin 0.017. Chest x-ray showed no acute cardiopulmonary disease. CAT scan of the brain showed mild atrophy. Chronic small vessel ischemia. No acute intracranial abnormality. X-ray of the pelvis showed no acute abnormality. No fracture. Patient was admitted to the [facility] floor and started on ceftriaxone. Blood culture is no growth after 24 hours and blood culture obtained on June 25 is no growth at 72 hours. Urine culture from June 25 showing Aerococcus urinae and sensitivity is not been finalized. Renal ultrasound shows slight fullness of the left renal collecting system. This was demonstrated on the CAT scan of December 2017. Cannot demonstrate ureteral jets. 1 cm echogenic focus in the interpolar left kidney could be nonobstructing calculus. Very slight left-sided hydronephrosis with probable improvement compared to December. Patient had CAT scan of the abdomen and pelvis ordered in December [address] Joy for hematuria and flank pain. He does have a history of TURP, lithotripsy and right ureteral stent. Patient is still having fever 101.4 last evening. He states he is not feeling any better since he has been on antibiotics. There is noted improvement of his white count. There is a consult in place for Dr. Joy. 06/30/2018 there is noted the patient by CAT scan was found evidence of the left hydronephrosis and a 7 mm left UPJ calculus. He is now status post urological intervention and placing of stent.urine culture with enterococcus blood cultures negative so far. does continue to have leukocytosis at 12.1 today.did have a 101.4 fever now it 100.2. Objective - Vital Signs Vital signs: Vital Signs Temp 100.2 F H 06/30/18 19:25 Pulse 98 06/30/18 19:25 Resp 18 06/30/18 19:25 BP 168/96 06/30/18 19:25 Pulse Ox 96 06/30/18 19:25 Intake & Output 06/30/18 06/30/18 07/01/18 06:59 18:59 06:59 Intake Total 470 1400 Output Total 0 Balance 470 1400 Intake: IV 800 Intake, IV Titration 250 Amount 0.9% NaCl with KCl 40 Meq 150 /l 1,000 ml @ 50 mls/hr IV .Q20H [facility] Rx#: [id number] Ampicillin-Sulbactam 3 gm 100 In Sodium Chloride 0.9% 100 ml @ 200 mls/hr IVPB Q6HR [facility] Rx#:[id number] Oral 220 600 Output: Estimated Blood Loss 0 Other: # Voids 10 2 - Exam Gen: This is a morbidly obese 72-year-old male. patient is quite miserable status post his procedure complaining of severe left flank pain no gracie hematuria is noted has had urinary output. HEENT: Head is atraumatic, normocephalic. Pupils equal, round. Sclerae is anicteric. Nares is clear. Oral mucous membranes are moist. No oropharynx erythema or edema. No thrush noted. NECK: Supple. No JVD. No lymphadenopathy. No thyromegaly. LUNGS: Clear to auscultation. No wheezes or rhonchi. No intercostal retractions. HEART: Regular rate and rhythm. No murmur. ABDOMEN: Morbidly obese. Soft. Bowel sounds are present. No masses. Mild right upper quadrant tenderness. significant left CVA tenderness noted EXTREMITIES: Trace bilateral pedal edema. No calf tenderness. Dorsalis pedis weak bilaterally. Onychomycosis bilaterally. NEUROLOGICAL: Patient is awake, alert and oriented x3. - Labs CBC & Chem 7: 06/30/18 08:27 06/30/18 08:27 Labs: Abnormal Lab Results - Last 24 Hours (Table) 06/30/18 06/30/18 Range/Units 08:27 08:27 WBC 12.1 H (3.8-10.6) k/uL RBC 3.89 L (4.30-5.90) m/uL Hgb 12.2 L (13.0-17.5) gm/dL Hct 36.8 L (39.0-53.0) % Sodium 135 L (137-145) mmol/L Glucose 103 H (74-99) mg/dL Calcium 8.3 L (8.4-10.2) mg/dL Microbiology - Last 24 Hours (Table) 06/25/18 20:21 Blood Culture - Preliminary Blood No Growth after 96 hours 06/27/18 20:42 Blood Culture - Preliminary Blood No Growth after 48 hours 06/27/18 20:24 Blood Culture - Preliminary Blood No Growth after 48 hours Laboratory Results WBC 12.1 k/uL (3.8-10.6) H 06/30/18 08:27 RBC 3.89 m/uL (4.30-5.90) L 06/30/18 08:27 Hgb 12.2 gm/dL (13.0-17.5) L 06/30/18 08:27 Hct 36.8 % (39.0-53.0) L 06/30/18 08:27 MCV 94.6 fL (80.0-100.0) 06/30/18 08:27 MCH 31.4 pg (25.0-35.0) 06/30/18 08:27 MCHC 33.2 g/dL (31.0-37.0) 06/30/18 08:27 RDW 13.1 % (11.5-15.5) 06/30/18 08:27 Plt Count 283 k/uL (150-450) 06/30/18 08:27 Neutrophils % 81 % 06/28/18 07:16 Lymphocytes % 8 % 06/28/18 07:16 Monocytes % 6 % 06/28/18 07:16 Eosinophils % 2 % 06/28/18 07:16 Basophils % 0 % 06/28/18 07:16 Neutrophils # 7.0 k/uL (1.3-7.7) 06/28/18 07:16 Lymphocytes # 0.7 k/uL (1.0-4.8) L 06/28/18 07:16 Monocytes # 0.5 k/uL (0-1.0) 06/28/18 07:16 Eosinophils # 0.2 k/uL (0-0.7) 06/28/18 07:16 Basophils # 0.0 k/uL (0-0.2) 06/28/18 07:16 PT 10.7 sec (9.0-12.0) 06/25/18 21:18 INR 1.0 (<1.2) 06/25/18 21:18 APTT 25.9 sec (22.0-30.0) 06/25/18 21:18 Sodium 135 mmol/L (137-145) L 06/30/18 08:27 Potassium 4.4 mmol/L (3.5-5.1) 06/30/18 08:27 Chloride 102 mmol/L (98-107) 06/30/18 08:27 Carbon Dioxide 25 mmol/L (22-30) 06/30/18 08:27 Anion Gap 8 mmol/L 06/30/18 08:27 BUN 12 mg/dL (9-20) 06/30/18 08:27 Creatinine 1.06 mg/dL (0.66-1.25) 06/30/18 08:27 Est GFR (CKD-EPI)AfAm 82 (>60 ml/min/1.73 sqM) 06/30/18 08:27 Est GFR (CKD-EPI)NonAf 71 (>60 ml/min/1.73 sqM) 06/30/18 08:27 Glucose 103 mg/dL (74-99) H 06/30/18 08:27 Plasma Lactic Acid Casey 0.9 mmol/L (0.7-2.0) 06/25/18 21:18 Calcium 8.3 mg/dL (8.4-10.2) L 06/30/18 08:27 Phosphorus 2.7 mg/dL (2.5-4.5) 06/25/18 21:18 Magnesium 2.0 mg/dL (1.6-2.3) 06/25/18 21:18 Total Bilirubin 1.0 mg/dL (0.2-1.3) 06/25/18 21:18 AST 20 U/L (17-59) 06/25/18 21:18 ALT 28 U/L (21-72) 06/25/18 21:18 Alkaline Phosphatase 68 U/L (38-126) 06/25/18 21:18 Total Creatine Kinase 69 U/L (55-170) 06/25/18 21:18 CK-MB (CK-2) 0.6 ng/mL (0.0-2.4) 06/25/18 21:18 CK-MB (CK-2) Rel Index 0.9 06/25/18 21:18 Troponin I 0.017 ng/mL (0.000-0.034) 06/25/18 21:18 Total Protein 5.7 g/dL (6.3-8.2) L 06/25/18 21:18 Albumin 3.3 g/dL (3.5-5.0) L 06/25/18 21:18 TSH 0.163 mIU/L (0.465-4.680) L 06/25/18 21:18 Urine Color Yellow 06/26/18 00:40 Urine Appearance Cloudy (Clear) 06/26/18 00:40 Urine pH 6.0 (5.0-8.0) 06/26/18 00:40 Ur Specific [place] 1.013 (1.001-1.035) 06/26/18 00:40 Urine Protein 1+ (Negative) H 06/26/18 00:40 Urine Glucose (UA) Negative (Negative) 06/26/18 00:40 Urine Ketones 2+ (Negative) H 06/26/18 00:40 Urine Blood Small (Negative) H 06/26/18 00:40 Urine Nitrite Negative (Negative) 06/26/18 00:40 Urine Bilirubin Negative (Negative) 06/26/18 00:40 Urine Urobilinogen 3.0 mg/dL (<2.0) 06/26/18 00:40 Ur Leukocyte Esterase Large (Negative) H 06/26/18 00:40 Urine RBC 21 /hpf (0-5) H 06/26/18 00:40 Urine WBC >182 /hpf (0-5) H 06/26/18 00:40 Ur Squamous Epith Cells 2 /hpf (0-4) 06/26/18 00:40 Urine Mucus Few /hpf (None) H 06/26/18 00:40 Influenza Type A RNA Not Detected (Not Detectd) 06/25/18 20:40 Influenza Type B (PCR) Not Detected (Not Detectd) 06/25/18 20:40 Microbiology 06/25/18 20:21 Blood Blood Culture - Preliminary No Growth after 96 hours 06/27/18 20:42 Blood Blood Culture - Preliminary No Growth after 48 hours 06/27/18 20:24 Blood Blood Culture - Preliminary No Growth after 48 hours 06/26/18 00:40 Urine,Clean Catch Urine Culture - Final Aerococcus urinae Assessment and Plan (1) Hydronephrosis with renal and ureteral calculus obstruction Current Visit: Yes Status: Acute Code(s): N13.2 - HYDRONEPHROSIS WITH RENAL AND URETERAL CALCULOUS OBSTRUCTION SNOMED Code(s): 277612683 (2) Sepsis Narrative/Plan: 72 -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 He has a known history of multiple urinary tract infections and history of prior hydronephrosis and nephrolithiasis. Presents feeling very ill with high-grade fevers chills body aches all consistent with sepsis from the urinary system. He was evaluated in the outpatient setting with lack of improvement is been brought into hospital. He does have prior urine cultures with E. coli that is sulfa and quinolone resistant. With hydration he started to feel better but had significant chills and some sweats overnight. He is able to tolerate his food without nausea or emesis but does not like current food quality. The patient relates he is lives in the family with his and adult daughter because he became so weak upon leaving the bathroom and could not get up off the floor he was brought to Hospital by EMS. Relates the weakness is improving. His renal ultrasound is abnormal a computed tomography scan has been requested to evaluate for further obstruction and abnormality and urology consult has been requested given his significant history. Given the Aerococcus has been isolated antibiotic therapy is altered to ampicillin sulbactam, will monitor response to treatment and urological evaluation and treatments. 06/30/2018 reveals the patient to be status post urological intervention with stent placed into the left ureter for the hydronephrosis in obstruction of the UPJ. He's having some discomfort after the procedure but fever is not as high as it has been. He is denying nausea or emesis. Blood cultures negative so far. He does have leukocytosis. Antibiotic therapy with Unasyn is being utilized for the isolated Aerococcus for she is not bacteremic. As he improves will determine best possible course of antibiotic therapy at his discharge. Current Visit: Yes Status: Acute Code(s): A41.9 - SEPSIS, UNSPECIFIED ORGANISM SNOMED Code(s): 16702538
[2018-06-30 23:33] LABS: Glucose,Whole Blood 107 mg/dL (75-99)
[2018-07-01] MEDS: AMPICILLIN-SULBACTAM 3 GM in SODIUM CHLORIDE 0.9% 100 ML IVPB SCH ×5 (00:40→23:05)
[2018-07-01] MEDS: 0.9% NACL WITH KCL 40 MEQ/L 1,000 ML IV SCH (08:05)
[2018-07-01 08:10] LABS: HCT 36.8 % (39.0-53.0); HGB 11.8 gm/dL (13.0-17.5); MCH 30.9 pg (25.0-35.0); MCHC 32.2 g/dL (31.0-37.0); MCV 95.9 fL (80.0-100.0); Mean Platelet Volume 6.4; Platelet Count 340 k/uL (150-450); RBC 3.83 m/uL (4.30-5.90); RDW 13.1 % (11.5-15.5); WBC 12.9 k/uL (3.8-10.6)
[2018-07-01] MEDS: amLODIPine 5 MG TAB PO SCH (08:14)
[2018-07-01] MEDS: ASPIRIN 325 MG TAB PO SCH (08:14)
[2018-07-01] MEDS: LORATADINE 10 MG TAB PO SCH (08:14)
[2018-07-01] MEDS: ENOXAPARIN 40 MG/0.4 ML SYRINGE SQ SCH (08:14)
[2018-07-01] MEDS: MELOXICAM 7.5 MG TAB PO SCH (08:14)
--- NOTE | 2018-07-01 08:15 | P.PN ---
Subjective Progress Note Date: 07/01/18 Principal diagnosis: Urine tract infection This 72-year-old gentleman was admitted to the hospital with fever and chills. He is also had back pain. He is noted to have evidence of urinary tract infection. He is on antibiotic Unasyn. He has been seen by ID and nonrecommended antibiotic. The patient had evidence of obstructive uropathy on the left side he had multiple small kidney stones in the ureter. He did undergo a surgical procedure yesterday of stent being placed in the left ureter. Did discuss the case with Dr. Joy at the bedside today. He said he had no stones removed. The patient did have a temperature last night. The nurse also reported he was mildly confused. Patient denies that. The patient does have pain in the back with sides whenever she voids. The pain is felt to be probably pain related to reflux. He is also known to have significant lower back with degenerative arthritis. The patient at present otherwise denies any other symptoms. Does mention about did have a fever last night and a low-grade this morning. He is alert oriented able to discuss appropriately. Eating his breakfast. Does feel weak today. He has been voiding freely with no symptoms of dysuria hematuria. He does have some incontinence. Has had a previous history of TURP. The patient does not have diarrhea but did have a bowel movement REVIEW OF SYSTEMS: Neuro: Denies any headaches dizziness. Psych: Denies anxiety depression feels oriented. Cardiac: Denies chest pain and angina palpitations. Respiratory: Denies shortness of breath cough. GI: Denies nausea vomiting or abdominal pain. No diarrhea or constipation. : Denies dysuria hematuria. Some incontinence. Back pain every time he voids Extremities: Denies pain. No edema. Skin: Intact. Constitutional: Had fever no chills Objective - Vital Signs Vital signs: Vital Signs Temp 98.8 F 07/01/18 00:05 Pulse 95 07/01/18 00:05 Resp 18 07/01/18 00:05 BP 164/89 07/01/18 00:05 Pulse Ox 94 L 07/01/18 00:05 Intake & Output 06/30/18 07/01/18 07/01/18 18:59 06:59 18:59 Intake Total 1400 1200 Output Total 0 Balance 1400 1200 Intake: IV 800 Intake, IV Titration 1200 Amount 0.9% NaCl with KCl 40 Meq 1100 /l 1,000 ml @ 100 mls/hr IV .Q10H [facility] Rx#: [id number] Ampicillin-Sulbactam 3 gm 100 In Sodium Chloride 0.9% 100 ml @ 200 mls/hr IVPB Q6HR [facility] Rx#:[id number] Oral 600 Output: Estimated Blood Loss 0 Other: # Voids 2 PHYSICAL EXAMINATION: Cooperative, at present in no acute distress. HEENT: Neck supple Chest: Clear to auscultation Cardiac: Normal S1-S2 no gallops no murmur . Abdomen: Soft bowel sounds present. Extremities: No edema no tenderness Neurologically: Awake, alert, oriented with well-coordinated movements. - Labs CBC & Chem 7: 06/30/18 08:27 06/30/18 08:27 Labs: Abnormal Lab Results - Last 24 Hours (Table) 06/30/18 06/30/18 06/30/18 Range/Units 08:27 08:27 23:22 WBC 12.1 H (3.8-10.6) k/uL RBC 3.89 L (4.30-5.90) m/uL Hgb 12.2 L (13.0-17.5) gm/dL Hct 36.8 L (39.0-53.0) % Sodium 135 L (137-145) mmol/L Glucose 103 H (74-99) mg/dL POC Glucose (mg/dL) 107 H (75-99) mg/dL Calcium 8.3 L (8.4-10.2) mg/dL Microbiology - Last 24 Hours (Table) 06/25/18 20:21 Blood Culture - Preliminary Blood No Growth after 120 hours 06/27/18 20:42 Blood Culture - Preliminary Blood No Growth after 72 hours 06/27/18 20:24 Blood Culture - Preliminary Blood No Growth after 72 hours Assessment and Plan Assessment: ASSESSMENT: 1. Unit tract infection with left renal obstruction. 2. SIRS improving. 3. Status post left ureteric stent. 4. Nephrolithiasis. 5. Morbid obesity. PLAN: Continue present medical regimen. Patient's general condition is discussed with the patient and myself and Dr. Steele of the bedside. Prognosis remains guarded. Continue present antibiotic regimen. patient will be discharged if remains afebrile for more than 48 hours. Encourage ambulation.
[2018-07-01 08:37] LABS: Anion Gap 9 mmol/L; Blood Urea Nitrogen 12 mg/dL (9-20); Calcium 8.3 mg/dL (8.4-10.2); Carbon Dioxide 24 mmol/L (22-30); Chloride 103 mmol/L (98-107); Glucose 101 mg/dL (74-99); Potassium 4.7 mmol/L (3.5-5.1); Sodium 136 mmol/L (137-145)
[2018-07-01] MEDS: MODAFINIL 100 MG TAB PO SCH (10:50)
[2018-07-01] MEDS: MULTIVITAMINS, THERA 1 EACH TAB PO SCH (14:00)
[2018-07-01] MEDS: DOXAZOSIN 4 MG TAB PO SCH (20:10)
--- NOTE | 2018-07-01 21:39 | P.PN ---
Progress Note - Text Progress Note Date: 07/01/18 Mr. Keene was febrile overnight. He was seen this morning and reported feeling weak. He also reported back pain during micturition. I explained to him that this is common in patients with ureteral stents. I also explained to him that sometimes patients are febrile following the manipulation involved in stent placement. He has been afebrile throughout the day. He will continue to receive IV antibiotics.
[2018-07-02] MEDS: AMPICILLIN-SULBACTAM 3 GM in SODIUM CHLORIDE 0.9% 100 ML IVPB SCH ×3 (05:09→17:22)
--- NOTE | 2018-07-02 07:17 | P.PN ---
Progress Note - Text The patient is a 72-year-old gentleman who is a patient of Dr. Gaona's for whom I am covering. Patient initially presented with fever and chills. Evidence of an underlying urinary tract infection. Ultrasound revealed multiple kidney stones in the left ureter. Patient underwent stent placement in the left ureter. Subsequent urine cultures have grown out Aerococcis urinae. Blood cultures have so far been negative. The patient is awake lying in bed. Denies any chest pain or shortness of breath. His suprapubic discomfort and urinary symptoms are still present but improved. Vital signs show a temperature of 98.7 with a pulse of 91 and respirations nonlabored at 18. Blood pressure is 139/83 and he is 95% saturated on room air. Lung and heart examination is clear and regular. Abdomen is obese but nontender. He is alert and oriented without any cranial nerves or peripheral nerve deficits noted. Laboratory from yesterday showed a white count of 12.9 and hemoglobin 11.8 and a platelet count of 340. Electrolytes showed a sodium of 136 and a potassium 4.7. Blood sugar 101. His GFR is 83 with a BUN of 12 and a creatinine 0.93. Impressions and plans Patient remains on Zosyn for his urinary tract infection with sepsis along with his other maintenance medications. He is on Lovenox. We'll await further recommendations from urology and infectious disease regarding continue antibiotic treatment. Discussed with patient at bedside. Questions answered.
[2018-07-02] MEDS: ENOXAPARIN 40 MG/0.4 ML SYRINGE SQ SCH (09:06)
[2018-07-02] MEDS: ASPIRIN 325 MG TAB PO SCH (09:06)
[2018-07-02] MEDS: LORATADINE 10 MG TAB PO SCH (09:06)
[2018-07-02] MEDS: MELOXICAM 7.5 MG TAB PO SCH (09:06)
[2018-07-02] MEDS: MODAFINIL 100 MG TAB PO SCH (09:07)
[2018-07-02] MEDS: amLODIPine 5 MG TAB PO SCH (11:01)
[2018-07-02] MEDS: 0.9% NACL WITH KCL 40 MEQ/L 1,000 ML IV SCH (11:01)
[2018-07-02 11:58] VITALS: BMI 48.6
[2018-07-02] MEDS: MULTIVITAMINS, THERA 1 EACH TAB PO SCH (12:59)
--- NOTE | 2018-07-02 17:32 | P.PN ---
Progress Note - Text Progress Note Date: 07/02/18 Mr. Keene is feeling much better today. He is stronger, and ambulating with a walker. His appetite is good. He continues to report left flank discomfort with micturition, and the reason for this was again explained to him. I anticipate that he will be discharged home in the next 1-2 days on oral antibiotics, and he will follow up with me in 1-2 weeks. Once it has been confirm that the infection has resolved, arrangements will be made for him to undergo cystoscopy, cystolithotripsy, left ureteral stent removal, left ureteroscopy with Holmium laser lithotripsy. Please notify us if we can be of any further assistance.
[2018-07-02] MEDS: DOXAZOSIN 4 MG TAB PO SCH (20:04)
--- NOTE | 2018-07-02 23:48 | P.PN ---
Subjective Progress Note Date: 07/02/18 This is a 72-year-old male patient who gives history of vague symptoms that his stomach was not feeling right starting around Thursday of last week. He denies having any nausea or vomiting, no diarrhea. He had 2 bowel movements on Thursday that were normal consistency. He states he had a low-grade fever of 99 at home. He denies having any body aches joint aches, runny nose, sore throat or cough. He does relate that he had an episode of a severe headache that lasted about 10 seconds on while he was driving resolved without treatment. He does not usually get headaches. He has had decreased appetite while in the hospital but thinks this is more related to the food. He denies frequent urinary tract infections but does state that he has chronic prostate problems causing it difficult to start urine flow and to completely empty his bladder. He denies flank pain. He states he saw Dr. Gaona on Thursday afternoon and was given an antibiotic but he did not get this filled. In Dr. Gaona's office, urine dipstick showed minimal leukocyte esterase , negative nitrate, some ketones and protein in the urine and his urine was sent for culture. Chest x-ray was unremarkable. Later that evening, patient states he got up to the bathroom was starting to get up from the toilet and felt that his thighs were not strong enough but he walked about 4 feet in the hallway and then let himself slight to the floor. His and daughter were unable to get him to a standing position and 911 was called. Per department and EMS came and found that his blood pressure was high and his temperature was 102.6. His white count was 11.7, creatinine 0.73. Electrolytes and liver function tests within normal limits. Influenza testing was negative. His urinalysis was cloudy, protein 1+, ketones 2+, blood small, leukoesterase large , WBCs greater than 182. TSH was 0.173 and troponin 0.017. Chest x-ray showed no acute cardiopulmonary disease. CAT scan of the brain showed mild atrophy. Chronic small vessel ischemia. No acute intracranial abnormality. X-ray of the pelvis showed no acute abnormality. No fracture. Patient was admitted to the [facility] floor and started on ceftriaxone. Blood culture is no growth after 24 hours and blood culture obtained on June 25 is no growth at 72 hours. Urine culture from June 25 showing Aerococcus urinae and sensitivity is not been finalized. Renal ultrasound shows slight fullness of the left renal collecting system. This was demonstrated on the CAT scan of December 2017. Cannot demonstrate ureteral jets. 1 cm echogenic focus in the interpolar left kidney could be nonobstructing calculus. Very slight left-sided hydronephrosis with probable improvement compared to December. Patient had CAT scan of the abdomen and pelvis ordered in December [address] Joy for hematuria and flank pain. He does have a history of TURP, lithotripsy and right ureteral stent. Patient is still having fever 101.4 last evening. He states he is not feeling any better since he has been on antibiotics. There is noted improvement of his white count. There is a consult in place for Dr. Joy. 06/30/2018 there is noted the patient by CAT scan was found evidence of the left hydronephrosis and a 7 mm left UPJ calculus. He is now status post urological intervention and placing of stent.urine culture with enterococcus blood cultures negative so far. does continue to have leukocytosis at 12.1 today.did have a 101.4 fever now it 100.2. 07/02/2018 patient is showing improvement. Was able to ablate with a walker without great difficulties. Abdomen some ongoing discomforts in general misery about being in hospital he is definitely improved. No further fever. Objective - Vital Signs Vital signs: Vital Signs Temp 98.3 F 07/02/18 19:22 Pulse 85 07/02/18 19:22 Resp 17 07/02/18 19:22 BP 146/80 07/02/18 19:22 Pulse Ox 95 07/02/18 19:22 Intake & Output 07/02/18 07/02/18 07/03/18 06:59 18:59 06:59 Intake Total 240 Balance 240 Weight 132.449 kg Intake: Oral 240 Other: Voiding Method Toilet Toilet Toilet # Voids 4 2 4 - Exam Gen: This is a morbidly obese 72-year-old male. patient is quite miserable status post his procedure complaining of severe left flank pain no gracie hematuria is noted has had urinary output. HEENT: Head is atraumatic, normocephalic. Pupils equal, round. Sclerae is anicteric. Nares is clear. Oral mucous membranes are moist. No oropharynx erythema or edema. No thrush noted. NECK: Supple. No JVD. No lymphadenopathy. No thyromegaly. LUNGS: Clear to auscultation. No wheezes or rhonchi. No intercostal retractions. HEART: Regular rate and rhythm. No murmur. ABDOMEN: Morbidly obese. Soft. Bowel sounds are present. No masses. Mild right upper quadrant tenderness. significant left CVA tenderness noted EXTREMITIES: Trace bilateral pedal edema. No calf tenderness. Dorsalis pedis weak bilaterally. Onychomycosis bilaterally. NEUROLOGICAL: Patient is awake, alert and oriented x3. - Labs CBC & Chem 7: 07/01/18 07:26 07/01/18 07:26 Labs: Microbiology - Last 24 Hours (Table) 06/27/18 20:42 Blood Culture - Preliminary Blood No Growth after 120 hours 06/27/18 20:24 Blood Culture - Preliminary Blood No Growth after 120 hours 06/25/18 20:21 Blood Culture - Final Blood No Growth after 144 hours Laboratory Results WBC 12.9 k/uL (3.8-10.6) H 07/01/18 07:26 RBC 3.83 m/uL (4.30-5.90) L 07/01/18 07:26 Hgb 11.8 gm/dL (13.0-17.5) L 07/01/18 07:26 Hct 36.8 % (39.0-53.0) L 07/01/18 07:26 MCV 95.9 fL (80.0-100.0) 07/01/18 07:26 MCH 30.9 pg (25.0-35.0) 07/01/18 07:26 MCHC 32.2 g/dL (31.0-37.0) 07/01/18 07:26 RDW 13.1 % (11.5-15.5) 07/01/18 07:26 Plt Count 340 k/uL (150-450) 07/01/18 07:26 Neutrophils % 81 % 06/28/18 07:16 Lymphocytes % 8 % 06/28/18 07:16 Monocytes % 6 % 06/28/18 07:16 Eosinophils % 2 % 06/28/18 07:16 Basophils % 0 % 06/28/18 07:16 Neutrophils # 7.0 k/uL (1.3-7.7) 06/28/18 07:16 Lymphocytes # 0.7 k/uL (1.0-4.8) L 06/28/18 07:16 Monocytes # 0.5 k/uL (0-1.0) 06/28/18 07:16 Eosinophils # 0.2 k/uL (0-0.7) 06/28/18 07:16 Basophils # 0.0 k/uL (0-0.2) 06/28/18 07:16 PT 10.7 sec (9.0-12.0) 06/25/18 21:18 INR 1.0 (<1.2) 06/25/18 21:18 APTT 25.9 sec (22.0-30.0) 06/25/18 21:18 Sodium 136 mmol/L (137-145) L 07/01/18 07:26 Potassium 4.7 mmol/L (3.5-5.1) 07/01/18 07:26 Chloride 103 mmol/L (98-107) 07/01/18 07:26 Carbon Dioxide 24 mmol/L (22-30) 07/01/18 07:26 Anion Gap 9 mmol/L 07/01/18 07:26 BUN 12 mg/dL (9-20) 07/01/18 07:26 Creatinine 0.93 mg/dL (0.66-1.25) 07/01/18 07:26 Est GFR (CKD-EPI)AfAm >90 (>60 ml/min/1.73 sqM) 07/01/18 07:26 Est GFR (CKD-EPI)NonAf 83 (>60 ml/min/1.73 sqM) 07/01/18 07:26 Glucose 101 mg/dL (74-99) H 07/01/18 07:26 POC Glucose (mg/dL) 107 mg/dL (75-99) H 06/30/18 23:22 POC Glu Administrative Coordinator ID Dyeanira Li 06/30/18 23:22 Plasma Lactic Acid Casey 0.9 mmol/L (0.7-2.0) 06/25/18 21:18 Calcium 8.3 mg/dL (8.4-10.2) L 07/01/18 07:26 Phosphorus 2.7 mg/dL (2.5-4.5) 06/25/18 21:18 Magnesium 2.0 mg/dL (1.6-2.3) 06/25/18 21:18 Total Bilirubin 1.0 mg/dL (0.2-1.3) 06/25/18 21:18 AST 20 U/L (17-59) 06/25/18 21:18 ALT 28 U/L (21-72) 06/25/18 21:18 Alkaline Phosphatase 68 U/L (38-126) 06/25/18 21:18 Total Creatine Kinase 69 U/L (55-170) 06/25/18 21:18 CK-MB (CK-2) 0.6 ng/mL (0.0-2.4) 06/25/18 21:18 CK-MB (CK-2) Rel Index 0.9 06/25/18 21:18 Troponin I 0.017 ng/mL (0.000-0.034) 06/25/18 21:18 Total Protein 5.7 g/dL (6.3-8.2) L 06/25/18 21:18 Albumin 3.3 g/dL (3.5-5.0) L 06/25/18 21:18 TSH 0.163 mIU/L (0.465-4.680) L 06/25/18 21:18 Urine Color Yellow 06/26/18 00:40 Urine Appearance Cloudy (Clear) 06/26/18 00:40 Urine pH 6.0 (5.0-8.0) 06/26/18 00:40 Ur Specific Hardin 1.013 (1.001-1.035) 06/26/18 00:40 Urine Protein 1+ (Negative) H 06/26/18 00:40 Urine Glucose (UA) Negative (Negative) 06/26/18 00:40 Urine Ketones 2+ (Negative) H 06/26/18 00:40 Urine Blood Small (Negative) H 06/26/18 00:40 Urine Nitrite Negative (Negative) 06/26/18 00:40 Urine Bilirubin Negative (Negative) 06/26/18 00:40 Urine Urobilinogen 3.0 mg/dL (<2.0) 06/26/18 00:40 Ur Leukocyte Esterase Large (Negative) H 06/26/18 00:40 Urine RBC 21 /hpf (0-5) H 06/26/18 00:40 Urine WBC >182 /hpf (0-5) H 06/26/18 00:40 Ur Squamous Epith Cells 2 /hpf (0-4) 06/26/18 00:40 Urine Mucus Few /hpf (None) H 06/26/18 00:40 Stone Weight 0.1683 g 06/30/18 13:25 Stone Constituent 1 See below 06/30/18 13:25 Influenza Type A RNA Not Detected (Not Detectd) 06/25/18 20:40 Influenza Type B (PCR) Not Detected (Not Detectd) 06/25/18 20:40 Microbiology 06/27/18 20:42 Blood Blood Culture - Preliminary No Growth after 120 hours 06/27/18 20:24 Blood Blood Culture - Preliminary No Growth after 120 hours 06/25/18 20:21 Blood Blood Culture - Final No Growth after 144 hours 06/26/18 00:40 Urine,Clean Catch Urine Culture - Final Aerococcus urinae Assessment and Plan (1) Hydronephrosis with renal and ureteral calculus obstruction Current Visit: Yes Status: Acute Code(s): N13.2 - HYDRONEPHROSIS WITH RENAL AND URETERAL CALCULOUS OBSTRUCTION SNOMED Code(s): 940703486 (2) Sepsis Narrative/Plan: 72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 He has a known history of multiple urinary tract infections and history of prior hydronephrosis and nephrolithiasis. Presents feeling very ill with high-grade fevers chills body aches all consistent with sepsis from the urinary system. He was evaluated in the outpatient setting with lack of improvement is been brought into hospital. He does have prior urine cultures with E. coli that is sulfa and quinolone resistant. With hydration he started to feel better but had significant chills and some sweats overnight. He is able to tolerate his food without nausea or emesis but does not like current food quality. The patient relates he is lives in the family with his and adult daughter because he became so weak upon leaving the bathroom and could not get up off the floor he was brought to Hospital by EMS. Relates the weakness is improving. His renal ultrasound is abnormal a computed tomography scan has been requested to evaluate for further obstruction and abnormality and urology consult has been requested given his significant history. Given the Aerococcus has been isolated antibiotic therapy is altered to ampicillin sulbactam, will monitor response to treatment and urological evaluation and treatments. 06/30/2018 reveals the patient to be status post urological intervention with stent placed into the left ureter for the hydronephrosis in obstruction of the UPJ. He's having some discomfort after the procedure but fever is not as high as it has been. He is denying nausea or emesis. Blood cultures negative so far. He does have leukocytosis. Antibiotic therapy with Unasyn is being utilized for the isolated Aerococcus fortunately is not bacteremic. As he improves will determine best possible course of antibiotic therapy at his discharge. 07/02/2018 patient is status post stent placement into the left ureter and is clinically much improved. Urine culture isolated Aerococcus, with negative blood cultures and clinical improvement and stent placement will likely be transitioned to Augmentin for home to complete his course of therapy until he has follow-up with urology. The patient is quite miserable from being in hospital would do well for discharge home in the near future. Current Visit: Yes Status: Acute Code(s): A41.9 - SEPSIS, UNSPECIFIED ORGANISM SNOMED Code(s): 28959695
[2018-07-03] MEDS: AMPICILLIN-SULBACTAM 3 GM in SODIUM CHLORIDE 0.9% 100 ML IVPB SCH ×3 (00:01→12:00)
[2018-07-03 08:20] LABS: Anion Gap 4 mmol/L; Blood Urea Nitrogen 11 mg/dL (9-20); Calcium 8.3 mg/dL (8.4-10.2); Carbon Dioxide 29 mmol/L (22-30); Chloride 104 mmol/L (98-107); Glucose 110 mg/dL (74-99); Potassium 4.5 mmol/L (3.5-5.1); Sodium 137 mmol/L (137-145)
[2018-07-03 08:23] LABS: Basophils # (A) 0.1 k/uL (0-0.2); Basophils % (A) 1 %; Eosinophils # (A) 0.3 k/uL (0-0.7); Eosinophils % (A) 4 %; HCT 34.6 % (39.0-53.0); Lymphocytes # (A) 0.9 k/uL (1.0-4.8); Lymphocytes % (A) 11 %; MCH 30.7 pg (25.0-35.0); MCHC 31.8 g/dL (31.0-37.0); MCV 96.4 fL (80.0-100.0); Mean Platelet Volume 6.3; Monocytes # (A) 0.5 k/uL (0-1.0); Monocytes % (A) 6 %; Neutrophils # (A) 6.1 k/uL (1.3-7.7); Neutrophils % (A) 75 %; Platelet Count 372 k/uL (150-450); RBC 3.59 m/uL (4.30-5.90); RDW 12.9 % (11.5-15.5); WBC 8.2 k/uL (3.8-10.6)
[2018-07-03 10:57] VITALS: BP 131/74; PULSE 86; RESP 18; TEMP 97.7
[2018-07-03] MEDS: ASPIRIN 325 MG TAB PO SCH (11:22)
[2018-07-03] MEDS: MELOXICAM 7.5 MG TAB PO SCH (11:22)
[2018-07-03] MEDS: MODAFINIL 100 MG TAB PO SCH (11:22)
[2018-07-03] MEDS: LORATADINE 10 MG TAB PO SCH (11:24)
[2018-07-03] MEDS: amLODIPine 5 MG TAB PO SCH (11:24)
[2018-07-03] MEDS: ENOXAPARIN 40 MG/0.4 ML SYRINGE SQ SCH (11:24)
[2018-07-03] MEDS: 0.9% NACL WITH KCL 40 MEQ/L 1,000 ML IV SCH (11:28)
[2018-07-03] MEDS: MULTIVITAMINS, THERA 1 EACH TAB PO SCH (11:28)
--- NOTE | 2018-07-03 11:40 | P.PN ---
Progress Note - Text The patient is a 72-year-old gentleman who is a patient of Dr. Gaona's for whom I am covering. The patient initially presented with fever and chills. Patient has subsequently grown out on urine cultures to be positive for Aerococcus urinae . He has been afebrile now while on Zosyn and after neurological treatment and stenting. Yesterday he was seen by infectious disease and urology and has been cleared for discharge. This morning he is in no distress. No fever or chills. No chest pain. No nausea or vomiting or unusual pain. He has been up ambulating. Vital signs reveal temperature 97.7 with a pulse of 86 and respirations 18. Blood pressure 131/74 and he is 95% saturated. He is alert and oriented. He has no respiratory distress. No neurological deficits. Blood cultures have all been negative. CBC shows a white count of 8.2 with a hemoglobin 11 a platelet count of 372. Sodium is 137 with potassium 4.5. BUN of 11 with a creatinine of 0.7 for given him a GFR greater than 90. Blood sugar 110. Stones revealed 97% calcium oxalate monohydrate and 3% uric acid anhydrous. Impressions and plans At this time plans are for discharge to home as discussed with patient and nursing staff in the room this morning. Prescription has been left in his chart for Augmentin 875 mg twice a day for 10 days. He is to have follow-up with urology Dr. Joy for likely further intervention as per his note. Also follow-up with his primary care physician Dr. Gaona. If recurrence of symptoms he is to call or return to the emergency room if any unusual problems.
--- NOTE | 2018-07-03 16:40 | P.PN ---
Subjective Progress Note Date: 07/03/18 This is a 72-year-old male patient who gives history of vague symptoms that his stomach was not feeling right starting around Thursday of last week. He denies having any nausea or vomiting, no diarrhea. He had 2 bowel movements on Thursday that were normal consistency. He states he had a low-grade fever of 99 at home. He denies having any body aches joint aches, runny nose, sore throat or cough. He does relate that he had an episode of a severe headache that lasted about 10 seconds on while he was driving resolved without treatment. He does not usually get headaches. He has had decreased appetite while in the hospital but thinks this is more related to the food. He denies frequent urinary tract infections but does state that he has chronic prostate problems causing it difficult to start urine flow and to completely empty his bladder. He denies flank pain. He states he saw Dr. Gaona on Thursday afternoon and was given an antibiotic but he did not get this filled. In Dr. Gaona's office, urine dipstick showed minimal leukocyte esterase , negative nitrate, some ketones and protein in the urine and his urine was sent for culture. Chest x-ray was unremarkable. Later that evening, patient states he got up to the bathroom was starting to get up from the toilet and felt that his thighs were not strong enough but he walked about 4 feet in the hallway and then let himself slight to the floor. His and daughter were unable to get him to a standing position and 911 was called. Per department and EMS came and found that his blood pressure was high and his temperature was 102.6. His white count was 11.7, creatinine 0.73. Electrolytes and liver function tests within normal limits. Influenza testing was negative. His urinalysis was cloudy, protein 1+, ketones 2+, blood small, leukoesterase large , WBCs greater than 182. TSH was 0.173 and troponin 0.017. Chest x-ray showed no acute cardiopulmonary disease. CAT scan of the brain showed mild atrophy. Chronic small vessel ischemia. No acute intracranial abnormality. X-ray of the pelvis showed no acute abnormality. No fracture. Patient was admitted to the [facility] floor and started on ceftriaxone. Blood culture is no growth after 24 hours and blood culture obtained on June 25 is no growth at 72 hours. Urine culture from June 25 showing Aerococcus urinae and sensitivity is not been finalized. Renal ultrasound shows slight fullness of the left renal collecting system. This was demonstrated on the CAT scan of December 2017. Cannot demonstrate ureteral jets. 1 cm echogenic focus in the interpolar left kidney could be nonobstructing calculus. Very slight left-sided hydronephrosis with probable improvement compared to December. Patient had CAT scan of the abdomen and pelvis ordered in December [address] Joy for hematuria and flank pain. He does have a history of TURP, lithotripsy and right ureteral stent. Patient is still having fever 101.4 last evening. He states he is not feeling any better since he has been on antibiotics. There is noted improvement of his white count. There is a consult in place for Dr. Joy. 06/30/2018 there is noted the patient by CAT scan was found evidence of the left hydronephrosis and a 7 mm left UPJ calculus. He is now status post urological intervention and placing of stent.urine culture with enterococcus blood cultures negative so far. does continue to have leukocytosis at 12.1 today.did have a 101.4 fever now it 100.2. 07/02/2018 patient is showing improvement. Was able to ablate with a walker without great difficulties. Abdomen some ongoing discomforts in general misery about being in hospital he is definitely improved. No further fever. 07/03/2018 patient has further improvement. Is up and ablating with the walker with no difficulties. He generally feels somewhat better and is less miserable that he's been. Looks forward to going home. Objective - Vital Signs Vital signs: Vital Signs Temp 97.7 F 07/03/18 07:00 Pulse 86 07/03/18 07:00 Resp 18 07/03/18 07:00 BP 131/74 07/03/18 07:00 Pulse Ox 95 07/03/18 16:07 Intake & Output 07/02/18 07/03/18 07/03/18 18:59 06:59 18:59 Intake Total 680 696 Balance 680 696 Weight 132.449 kg Intake: Intake, IV Titration 200 Amount 0.9% NaCl with KCl 40 Meq 200 /l 1,000 ml @ 25 mls/hr IV .Q24H [facility] Rx#: [id number] Oral 480 606 Other: Voiding Method Toilet Toilet Toilet # Voids 2 4 - Exam Gen: This is a morbidly obese 72-year-old male. patient is quite miserable status post his procedure complaining of severe left flank pain no gracie hematuria is noted has had urinary output. HEENT: Head is atraumatic, normocephalic. Pupils equal, round. Sclerae is anicteric. Nares is clear. Oral mucous membranes are moist. No oropharynx erythema or edema. No thrush noted. NECK: Supple. No JVD. No lymphadenopathy. No thyromegaly. LUNGS: Clear to auscultation. No wheezes or rhonchi. No intercostal retractions. HEART: Regular rate and rhythm. No murmur. ABDOMEN: Morbidly obese. Soft. Bowel sounds are present. No masses. Mild right upper quadrant tenderness. significant left CVA tenderness noted EXTREMITIES: Trace bilateral pedal edema. No calf tenderness. Dorsalis pedis weak bilaterally. Onychomycosis bilaterally. NEUROLOGICAL: Patient is awake, alert and oriented x3. - Labs CBC & Chem 7: 07/03/18 07:16 07/03/18 07:16 Labs: Abnormal Lab Results - Last 24 Hours (Table) 07/03/18 07/03/18 Range/Units 07:16 07:16 RBC 3.59 L (4.30-5.90) m/uL Hgb 11.0 L (13.0-17.5) gm/dL Hct 34.6 L (39.0-53.0) % Lymphocytes # 0.9 L (1.0-4.8) k/uL Glucose 110 H (74-99) mg/dL Calcium 8.3 L (8.4-10.2) mg/dL Microbiology - Last 24 Hours (Table) 06/27/18 20:42 Blood Culture - Preliminary Blood No Growth after 120 hours 06/27/18 20:24 Blood Culture - Preliminary Blood No Growth after 120 hours Laboratory Results WBC 8.2 k/uL (3.8-10.6) 07/03/18 07:16 RBC 3.59 m/uL (4.30-5.90) L 07/03/18 07:16 Hgb 11.0 gm/dL (13.0-17.5) L 07/03/18 07:16 Hct 34.6 % (39.0-53.0) L 07/03/18 07:16 MCV 96.4 fL (80.0-100.0) 07/03/18 07:16 MCH 30.7 pg (25.0-35.0) 07/03/18 07:16 MCHC 31.8 g/dL (31.0-37.0) 07/03/18 07:16 RDW 12.9 % (11.5-15.5) 07/03/18 07:16 Plt Count 372 k/uL (150-450) 07/03/18 07:16 Neutrophils % 75 % 07/03/18 07:16 Lymphocytes % 11 % 07/03/18 07:16 Monocytes % 6 % 07/03/18 07:16 Eosinophils % 4 % 07/03/18 07:16 Basophils % 1 % 07/03/18 07:16 Neutrophils # 6.1 k/uL (1.3-7.7) 07/03/18 07:16 Lymphocytes # 0.9 k/uL (1.0-4.8) L 07/03/18 07:16 Monocytes # 0.5 k/uL (0-1.0) 07/03/18 07:16 Eosinophils # 0.3 k/uL (0-0.7) 07/03/18 07:16 Basophils # 0.1 k/uL (0-0.2) 07/03/18 07:16 PT 10.7 sec (9.0-12.0) 06/25/18 21:18 INR 1.0 (<1.2) 06/25/18 21:18 APTT 25.9 sec (22.0-30.0) 06/25/18 21:18 Sodium 137 mmol/L (137-145) 07/03/18 07:16 Potassium 4.5 mmol/L (3.5-5.1) 07/03/18 07:16 Chloride 104 mmol/L (98-107) 07/03/18 07:16 Carbon Dioxide 29 mmol/L (22-30) 07/03/18 07:16 Anion Gap 4 mmol/L 07/03/18 07:16 BUN 11 mg/dL (9-20) 07/03/18 07:16 Creatinine 0.74 mg/dL (0.66-1.25) 07/03/18 07:16 Est GFR (CKD-EPI)AfAm >90 (>60 ml/min/1.73 sqM) 07/03/18 07:16 Est GFR (CKD-EPI)NonAf >90 (>60 ml/min/1.73 sqM) 07/03/18 07:16 Glucose 110 mg/dL (74-99) H 07/03/18 07:16 POC Glucose (mg/dL) 107 mg/dL (75-99) H 06/30/18 23:22 POC Glu Activity Leader ID Deyanira Li 06/30/18 23:22 Plasma Lactic Acid Casey 0.9 mmol/L (0.7-2.0) 06/25/18 21:18 Calcium 8.3 mg/dL (8.4-10.2) L 07/03/18 07:16 Phosphorus 2.7 mg/dL (2.5-4.5) 06/25/18 21:18 Magnesium 2.0 mg/dL (1.6-2.3) 06/25/18 21:18 Total Bilirubin 1.0 mg/dL (0.2-1.3) 06/25/18 21:18 AST 20 U/L (17-59) 06/25/18 21:18 ALT 28 U/L (21-72) 06/25/18 21:18 Alkaline Phosphatase 68 U/L (38-126) 06/25/18 21:18 Total Creatine Kinase 69 U/L (55-170) 06/25/18 21:18 CK-MB (CK-2) 0.6 ng/mL (0.0-2.4) 06/25/18 21:18 CK-MB (CK-2) Rel Index 0.9 06/25/18 21:18 Troponin I 0.017 ng/mL (0.000-0.034) 06/25/18 21:18 Total Protein 5.7 g/dL (6.3-8.2) L 06/25/18 21:18 Albumin 3.3 g/dL (3.5-5.0) L 06/25/18 21:18 TSH 0.163 mIU/L (0.465-4.680) L 06/25/18 21:18 Urine Color Yellow 06/26/18 00:40 Urine Appearance Cloudy (Clear) 06/26/18 00:40 Urine pH 6.0 (5.0-8.0) 06/26/18 00:40 Ur Specific [place] 1.013 (1.001-1.035) 06/26/18 00:40 Urine Protein 1+ (Negative) H 06/26/18 00:40 Urine Glucose (UA) Negative (Negative) 06/26/18 00:40 Urine Ketones 2+ (Negative) H 06/26/18 00:40 Urine Blood Small (Negative) H 06/26/18 00:40 Urine Nitrite Negative (Negative) 06/26/18 00:40 Urine Bilirubin Negative (Negative) 06/26/18 00:40 Urine Urobilinogen 3.0 mg/dL (<2.0) 06/26/18 00:40 Ur Leukocyte Esterase Large (Negative) H 06/26/18 00:40 Urine RBC 21 /hpf (0-5) H 06/26/18 00:40 Urine WBC >182 /hpf (0-5) H 06/26/18 00:40 Ur Squamous Epith Cells 2 /hpf (0-4) 06/26/18 00:40 Urine Mucus Few /hpf (None) H 06/26/18 00:40 Stone Weight 0.1683 g 06/30/18 13:25 Stone Constituent 1 See below 06/30/18 13:25 Influenza Type A RNA Not Detected (Not Detectd) 06/25/18 20:40 Influenza Type B (PCR) Not Detected (Not Detectd) 06/25/18 20:40 Microbiology 06/27/18 20:42 Blood Blood Culture - Preliminary No Growth after 120 hours 06/27/18 20:24 Blood Blood Culture - Preliminary No Growth after 120 hours 06/25/18 20:21 Blood Blood Culture - Final No Growth after 144 hours 06/26/18 00:40 Urine,Clean Catch Urine Culture - Final Aerococcus urinae Assessment and Plan (1) Hydronephrosis with renal and ureteral calculus obstruction Status: Acute Code(s): N13.2 - HYDRONEPHROSIS WITH RENAL AND URETERAL CALCULOUS OBSTRUCTION SNOMED Code(s): 679051906 (2) Sepsis Narrative/Plan: 72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 He has a known history of multiple urinary tract infections and history of prior hydronephrosis and nephrolithiasis. Presents feeling very ill with high-grade fevers chills body aches all consistent with sepsis from the urinary system. He was evaluated in the outpatient setting with lack of improvement is been brought into hospital. He does have prior urine cultures with E. coli that is sulfa and quinolone resistant. With hydration he started to feel better but had significant chills and some sweats overnight. He is able to tolerate his food without nausea or emesis but does not like current food quality. The patient relates he is lives in the family with his and adult daughter because he became so weak upon leaving the bathroom and could not get up off the floor he was brought to Hospital by EMS. Relates the weakness is improving. His renal ultrasound is abnormal a computed tomography scan has been requested to evaluate for further obstruction and abnormality and urology consult has been requested given his significant history. Given the Aerococcus has been isolated antibiotic therapy is altered to ampicillin sulbactam, will monitor response to treatment and urological evaluation and treatments. 06/30/2018 reveals the patient to be status post urological intervention with stent placed into the left ureter for the hydronephrosis in obstruction of the UPJ. He's having some discomfort after the procedure but fever is not as high as it has been. He is denying nausea or emesis. Blood cultures negative so far. He does have leukocytosis. Antibiotic therapy with Unasyn is being utilized for the isolated Aerococcus fortunately is not bacteremic. As he improves will determine best possible course of antibiotic therapy at his discharge. 07/02/2018 patient is status post stent placement into the left ureter and is clinically much improved. Urine culture isolated Aerococcus, with negative blood cultures and clinical improvement and stent placement will likely be transitioned to Augmentin for home to complete his course of therapy until he has follow-up with urology. The patient is quite miserable from being in hospital would do well for discharge home in the near future. 07/03/2018 patient has had the ureteral stent placed into the left ureter and clinically is much improved. His pain is improved and he is without other acute difficulties. He is eating and drinking well without nausea or emesis or diarrhea. He is urinating well without much discomfort. He does have some incontinence and wears a pad without change. No hematuria is noted. He is ready for discharge home today Augmentin has been sent to his pharmacy no follow -up with urologist in near future regarding the stent. Following the infectious disease office if there is further concern per urology. Status: Acute Code(s): A41.9 - SEPSIS, UNSPECIFIED ORGANISM SNOMED Code(s): 79557678
== END 2018-07-03 15:59 | disposition home or self-care (01) | DRG 854 ==
LOC: EC 19:33 → 4SSUR 23:31 → OBSVTOIN 06-26 10:51
PROVIDERS: ADMIT Internal Medicine; ATTEND Internal Medicine
PROC: 0TCB8ZZ Extirpation of Matter from Bladder, Via Natural or Artificial Opening Endoscopic (ICD-10-PCS; principal; 2018-06-30 07:30)
PROC: 0T778DZ Dilation of Left Ureter with Intraluminal Device, Via Natural or Artificial Opening Endoscopic (ICD-10-PCS; principal; 2018-06-30 07:30)
DX: A41.9 Sepsis, unspecified organism (principal); N13.2 Hydronephrosis with renal and ureteral calculous obstruction; E66.01 Morbid (severe) obesity due to excess calories; G47.33 Obstructive sleep apnea (adult) (pediatric); G89.29 Other chronic pain; I87.8 Other specified disorders of veins; K21.9 Gastro-esophageal reflux disease without esophagitis; M17.0 Bilateral primary osteoarthritis of knee; N21.0 Calculus in bladder; N39.41 Urge incontinence; N40.0 Benign prostatic hyperplasia without lower urinary tract symptoms; W18.30XA Fall on same level, unspecified, initial encounter; Y92.009 Unspecified place in unspecified non-institutional (private) residence as the place of occurrence of the external cause; Z79.02 Long term (current) use of antithrombotics/antiplatelets; Z79.82 Long term (current) use of aspirin; Z80.0 Family history of malignant neoplasm of digestive organs; Z82.49 Family history of ischemic heart disease and other diseases of the circulatory system; Z87.440 Personal history of urinary (tract) infections; Z87.442 Personal history of urinary calculi; Z87.891 Personal history of nicotine dependence; Z90.79 Acquired absence of other genital organ(s); Z96.652 Presence of left artificial knee joint
CPT/HCPCS: 36415; 70450; 71046; 72170; 74177; 74430; 76770; 80048; 80053; 81001; 82365; 82550; 82553; 83605; 83735; 84100; 84443; 84484; 85025; 85027; 85610; 85730; 87040; 87086; 87502; 93005; 94760; 96361; 96365; 99285

== ENCOUNTER → 2018-06-25 | Outpatient (CLI) | payer MEDICARE ==
[2018-06-25 12:33] LABS: HCT 40.8 % (39.0-53.0); HGB 13.1 gm/dL (13.0-17.5); MCH 31.3 pg (25.0-35.0); MCHC 32.2 g/dL (31.0-37.0); MCV 97.2 fL (80.0-100.0); Mean Platelet Volume 6.9; Platelet Count 218 k/uL (150-450); RBC 4.19 m/uL (4.30-5.90); RDW 13.3 % (11.5-15.5); WBC 12.7 k/uL (3.8-10.6)
--- NOTE | 2018-06-25 12:44 | XR ---
EXAMINATION TYPE: XR chest 2V DATE OF EXAM: 06/25/2018 COMPARISON: 10/10/2014 HISTORY: Shortness of breath TECHNIQUE: Frontal and lateral views of the chest are obtained. FINDINGS: Scattered senescent parenchymal changes noted. Hyperinflation compatible with COPD. No evidence for infiltrate. No evidence for atelectasis. Heart size is stable. Mediastinal structures are stable and grossly unremarkable. No evidence for hilar prominence. Degenerative changes dorsal spine. IMPRESSION: 1. No evidence for acute pulmonary disease.
[2018-06-25 13:02] LABS: ALT 22 U/L (21-72); AST 21 U/L (17-59); Albumin 3.5 g/dL (3.5-5.0); Albumin/Globulin Ratio 1.4; Alkaline Phosphatase 75 U/L (38-126); Anion Gap 6 mmol/L; Blood Urea Nitrogen 19 mg/dL (9-20); Calcium 8.5 mg/dL (8.4-10.2); Carbon Dioxide 28 mmol/L (22-30); Chloride 104 mmol/L (98-107); Globulin 2.5 g/dL; Glucose 128 mg/dL (74-99); Potassium 4.3 mmol/L (3.5-5.1); Sodium 138 mmol/L (137-145); Total Bilirubin 0.9 mg/dL (0.2-1.3)
== END ==
LOC: LABWHC1 11:53
PROVIDERS: ATTEND Internal Medicine
DX: R50.9 Fever, unspecified (principal)
CPT/HCPCS: 36415; 71046; 80053; 85027

== ENCOUNTER 2018-07-16 09:12 | Day surgery (SDC) | payer MEDICARE ==
[2018-07-14 15:23] VITALS: BMI 48.6
--- NOTE | 2018-07-15 22:12 | P.GSHP ---
History of Present Illness H&P Date: 07/15/18 Chief Complaint: Left ureteral calculus The patient is a 72-year-old white female admitted earlier this month with weakness and fever. He was found to have an Aerococcus UTI, and a computed tomography scan showed evidence of left hydronephrosis due to a 7 mm left UPJ calculus. He underwent placement of a left ureteral stent, and has been treated with antibiotics. At the time of stent placement, he was found to have several bladder calculi. - Constitutional Constitutional: Reports fatigue, Denies fever - Genitourinary (Female) Genitourinary: Reports kidney stones, Reports urinary frequency Past Medical History Past Medical History: GERD/Reflux, Osteoarthritis (OA), Prostate Disorder, Skin Disorder, Sleep Apnea/CPAP/BIPAP Additional Past Medical History / Comment(s): PRE-CA SKIN LESIONS; BACK PAIN; HX RT RENAL CALCULUS, cellulitis of the lower legs with chronic venous stasis, morbid obesity, benign prostatic hypertrophy, obstructive sleep apnea no CPAP, gastroesophageal reflux disease, chronic back pain secondary to degenerative disc disease History of Any Multi-Drug Resistant Organisms: MRSA Date of last positivie culture/infection: 2014 MDRO Source:: finger Past Surgical History: Joint Replacement, Orthopedic Surgery Additional Past Surgical History / Comment(s): 06/30/18 CYSTOSCOPY REMOVAL OF BLADDER CALCULI AND W/ LT URETERAL STENT INSERTION,LT TOTAL KNEE; RT KNEE MAKOPLASTY; ABD LIPOMA REMOVED; RT RENAL CALCULUS LITHOTRIPSY, RT URETERAL STENT, TURP Past Anesthesia/Blood Transfusion Reactions: No Reported Reaction Smoking Status: Former smoker - Past Family History Father Family Medical History: Cancer, Myocardial Infarction (SD) Medications and Allergies Home Medications Medication Instructions Recorded Confirmed Type Aspirin 325 mg PO DAILY 10/28/13 07/14/18 History Celecoxib [CeleBREX] 200 mg PO DAILY 10/28/13 07/14/18 History Doxazosin [Cardura] 8 mg PO HS 10/28/13 07/14/18 History Multivitamins, Thera [Multivitamin] 1 tab PO DAILY 10/28/13 07/14/18 History Fexofenadine HCl [Mi Allergy] 180 mg PO DAILY 10/11/14 07/14/18 History Modafinil [Provigil] 300 mg PO DAILY 10/11/14 07/14/18 History Naproxen Sodium [Aleve] 220 mg PO DAILY PRN 02/09/17 07/14/18 History Amoxic-Pot Clav 875-125Mg 1 tab PO Q12HR #42 tablet 07/03/18 07/14/18 Rx [Augmentin 875-125] Allergies Allergy/AdvReac Type Severity Reaction Status Date / Time No Known Allergies Allergy Verified 07/14/18 15:16 Surgical - Exam - General well developed, well nourished, no distress - Respiratory normal respiratory effort - Psychiatric oriented to time, oriented to person, oriented to place, speech is normal, memory intact Results - Imaging CT scan - abdomen: report reviewed, image reviewed Assessment and Plan (1) Hydronephrosis with renal and ureteral calculus obstruction Status: Acute Code(s): N13.2 - HYDRONEPHROSIS WITH RENAL AND URETERAL CALCULOUS OBSTRUCTION SNOMED Code(s): 506754056 (2) Calculus in bladder Status: Acute Code(s): N21.0 - CALCULUS IN BLADDER SNOMED Code(s): 95146951 (3) Calculus of ureter Status: Acute Code(s): N20.1 - CALCULUS OF URETER SNOMED Code(s): 40028852 Plan: Cystoscopy, cystolithotripsy, left ureteral stent removal, left ureteroscopy with Holmium laser lithotripsy. The procedure has been reviewed in detail with the patient. Potential risks were discussed. These include anesthesia, bleeding, infection, inability to successfully remove all calculi, and ureteral injury.
[~2018-07-16 09:12] MED LIST: AMPICILLIN 2,000 MG in SODIUM CHLORIDE 0.9% 100 ML IVPB ONE; DEXAMETHASONE SOD PHOSPHATE 10 MG/ML 1 ML VIAL IV ONE; GENTAMICIN 120 MG in SODIUM CHLORIDE 0.9% 100 ML IVPB ONE; HYDROmorphone 0.5 MG/0.5 ML SYRINGE IVP PRN; LACTATED RINGERS 1,000 ML IV SCH; MIDAZOLAM 2 MG/2 ML VIAL IV PRN; ONDANSETRON 4 MG/2 ML VIAL IVP ONE
--- NOTE | 2018-07-16 09:29 | XR ---
EXAMINATION TYPE: XR KUB DATE OF EXAM: 07/16/2018 HISTORY: Pain Comparison: CT abdomen pelvis dated 06/29/2018 Single KUB is submitted for interpretation. Findings: Right renal calculi: 2 or 3 small right renal calculi measuring less than 3 mm. Right ureteral calculi: None Visualized. Left renal calculi: Multiple left-sided renal calculi redemonstrated largest adjacent to the stent m easures 9.2 mm. Left ureteral calculi: Double pigtail left-sided ureteral stent noted with proximal component within the left renal pelvis and distal components overlying the urinary bladder. No calculi identified dawit ng the course of the ureteral stent. Pelvic calcifications: None Visualized. Bowel gas pattern is unremarkable. No free air. No mass effects. IMPRESSION: 1. Left-sided nephrolithiasis. 2. Double pigtail left-sided ureteral stent as noted. No calculi identified along the course of the u reteral stent at this time.
[2018-07-16 09:53] VITALS: RESP 16
[2018-07-16] MEDS ORDERED: LIDOCAINE 1% INJ 10MG/ML (20 ML MDV) ONE (13:12)
[2018-07-16] MEDS ORDERED: GLYCOPYRROLATE 0.2 MG/ML 2 ML VIAL ONE (13:12)
[2018-07-16] MEDS ORDERED: MIDAZOLAM 2 MG/2 ML VIAL ONE (13:12)
[2018-07-16] MEDS ORDERED: ePHEDrine SULFATE/0.9% NACL/PF 50 MG/5 ML SYRINGE IV ONE (13:12)
[2018-07-16] MEDS ORDERED: SUCCINYLCHOLINE CHLORIDE 100 MG/5 ML SYR IV ONE (13:12)
[2018-07-16] MEDS ORDERED: PROPOFOL 10 MG/ML 20 ML VIAL IV ONE (13:12)
[2018-07-16] MEDS ORDERED: NEOSTIGMINE 1 MG/ML 10 ML VIAL ONE (13:12)
[2018-07-16] MEDS ORDERED: ROCURONIUM BROMIDE 10 MG/ML 10 ML VIAL IV ONE (13:12)
[2018-07-16] MEDS ORDERED: fentaNYL (PF) 50 MCG/ML 2 ML AMP ONE (13:12)
[2018-07-16] MEDS ORDERED: PHENYLEPHRINE-0.9% NACL SYG 1 MG/10 ML SYRINGE ONE (13:12)
[2018-07-16] MEDS ORDERED: FUROSEMIDE 10 MG/ML 2 ML VIAL ONE (13:12)
[2018-07-16] MEDS ORDERED: LACTATED RINGERS 1,000 ML IV ONE (15:33)
--- NOTE | 2018-07-16 15:44 | P.OP ---
Date of Procedure: 07/16/18 Preoperative Diagnosis: Bladder calculi, left ureteral calculus, left renal calculi Postoperative Diagnosis: Same Procedure(s) Performed: Cystoscopy, removal of bladder calculi, left ureteral stent removal, left ureteroscopy with Holmium laser lithotripsy Anesthesia: HAYDERA Surgeon: Chance Joy Estimated Blood Loss (ml): 20 IV fluids (ml): 1,300 Pathology: none sent Condition: stable Disposition: PACU Indications for Procedure: The patient is a 72-year-old white female admitted earlier this month with weakness and fever. He was found to have an Aerococcus UTI, and a computed tomography scan showed evidence of left hydronephrosis due to a 7 mm left UPJ calculus. He underwent placement of a left ureteral stent, and has been treated with antibiotics. At the time of stent placement, he was found to have several bladder calculi. The computed tomography scan also shows several left renal calculi measuring approximately 5 mm in size. Operative Findings: Several small bladder calculi. Multiple left renal calculi, fragmented to completion. Description of Procedure: The patient was taken to the operating room and placed in the dorsolithotomy position, with legs supported in Lucas stirrups. The external genitalia was prepped and draped sterilely. The 30 lens was used to introduce the 22-Armenian Stortz cystoscopic sheath through the urethra and into the bladder under direct vision. The prostatic urethra showed evidence of a prior TURP. There appeared to be some scarring between the verumontanum and the right lateral lobe, which was divided as the cystoscope was advanced into the bladder. Several small calculi were seen within the prostatic fossa, and these were removed through the cystoscope. The bladder was examined and was unremarkable. The distal end of the left ureteral stent was grasped with grasping forceps, and removed along with the cystoscope. A 0.035 inch Glidewire was passed through the stent, and up to the left renal pelvis. The Olympus flexible ureteroscope was advanced over the wire, up to the mid ureter. The ureteroscope was then advanced under direct vision. No calculi were seen within the ureter. Each calyx was examined. A 7 mm calculus was seen within a midpole calyx. 2 lower pole calyces contained 2 calculi each. The 200 micron Holmium laser probe was passed through the ureteroscope, and lithotripsy was performed to treat the midpole calculus initially utilizing a dusting technique. The nidus of the calculus was then fragmented using a popcorning technique. The lower pole calculi were then treated in an identical fashion, leaving no residual calculus fragments exceeding 1-2 mm in size. The ureteroscope was then withdrawn, and the Garcia catheter was placed to the fact that the patient's bladder appeared to be distended at the onset of the procedure. The patient tolerated the procedure well and was taken to the recovery room in stable condition.
[2018-07-16 16:05] VITALS: TEMP 98.4
[2018-07-16 17:06] VITALS: PULSE 98
[2018-07-16 17:21] VITALS: BP 120/75
--- NOTE | 2018-07-18 12:30 | FL ---
EXAMINATION TYPE: FL guidance operating room DATE OF EXAM: 07/16/2018 FLUOROSCOPY Fluoroscopy time of 8 seconds was used during urologic intervention for left renal calculus. 1 image /s document/s the procedure.
== END 2018-07-16 17:34 | disposition home or self-care (01) ==
LOC: OR 09:12
PROVIDERS: ATTEND Urology
DX: N13.2 Hydronephrosis with renal and ureteral calculous obstruction (principal); N21.0 Calculus in bladder; N40.0 Benign prostatic hyperplasia without lower urinary tract symptoms; K21.9 Gastro-esophageal reflux disease without esophagitis; M19.90 Unspecified osteoarthritis, unspecified site; E66.01 Morbid (severe) obesity due to excess calories; G47.33 Obstructive sleep apnea (adult) (pediatric); G89.29 Other chronic pain; Z87.442 Personal history of urinary calculi; Z87.440 Personal history of urinary (tract) infections; Z87.891 Personal history of nicotine dependence; Z79.82 Long term (current) use of aspirin; Z79.1 Long term (current) use of non-steroidal anti-inflammatories (NSAID); Z99.89 Dependence on other enabling machines and devices; Z79.899 Other long term (current) drug therapy; Z96.652 Presence of left artificial knee joint; Z68.42 Body mass index [BMI] 45.0-49.9, adult
CPT/HCPCS: 74018; 52353; C1769; C1758; J2250; J1100; J1940; J2710; J2405; J2001; J3010; J1580; J0290; J2370; J0330; J2704

== ENCOUNTER 2018-11-14 13:53 | Inpatient (IN) | payer MEDICARE ==
[2018-11-14] MEDS ORDERED: ACETAMINOPHEN TAB 500 MG TAB PO STA (14:07)
[2018-11-14] MEDS ORDERED: SODIUM CHLORIDE 0.9% 1,000 ML IV STA (14:07)
[2018-11-14] MEDS ORDERED: SODIUM CHLORIDE 0.9% 500 ML 500 ML IV STA (14:07)
[2018-11-14] MEDS ORDERED: IBUPROFEN 600 MG TAB PO STA (14:07)
[2018-11-14 15:04] LABS: Basophils # (A) 0.1 k/uL (0-0.2); Basophils % (A) 0 %; Eosinophils # (A) 0.2 k/uL (0-0.7); Eosinophils % (A) 1 %; HGB 13.6 gm/dL (13.0-17.5); Lymphocytes # (A) 0.5 k/uL (1.0-4.8); Lymphocytes % (A) 3 %; MCH 31.9 pg (25.0-35.0); MCHC 33.2 g/dL (31.0-37.0); MCV 95.9 fL (80.0-100.0); Mean Platelet Volume 7.4; Monocytes # (A) 0.8 k/uL (0-1.0); Monocytes % (A) 4 %; Neutrophils # (A) 15.7 k/uL (1.3-7.7); Neutrophils % (A) 91 %; Platelet Count 178 k/uL (150-450); RBC 4.28 m/uL (4.30-5.90); RDW 13.7 % (11.5-15.5); WBC 17.4 k/uL (3.8-10.6)
[2018-11-14 15:14] LABS: ALT 23 U/L (21-72); AST 26 U/L (17-59); Albumin 4.1 g/dL (3.5-5.0); Alkaline Phosphatase 116 U/L (38-126); Blood Urea Nitrogen 18 mg/dL (9-20); Calcium 9.2 mg/dL (8.4-10.2); Carbon Dioxide 26 mmol/L (22-30); Creatine Kinase 72 U/L (55-170); Glucose 103 mg/dL (74-99); Magnesium 1.8 mg/dL (1.6-2.3); Total Bilirubin 0.7 mg/dL (0.2-1.3); Total Protein 6.6 g/dL (6.3-8.2)
--- NOTE | 2018-11-14 15:14 | ED ---
Abdominal Pain HPI - General Chief Complaint: Abdominal Pain Stated Complaint: Fever Time Seen by Provider: 11/14/18 14:07 Source: patient, RN notes reviewed, old records reviewed Mode of arrival: wheelchair Limitations: no limitations - History of Present Illness Initial Comments: This is a 72-year-old male to ER for evaluation. They presents for evaluation regards to bowel pain flank pain. Positive nausea vomiting positive fever. Patient has history of kidney stones history of urinary check infections. Patient states his feels like the same is also having abdominal pain. No modifying factors for symptoms. MD Complaint: abdominal pain, flank pain -: days(s) Location: LLQ, suprapubic, L flank Radiation: suprapubic Severity: mild Severity scale (1-10): 3 Quality: aching Consistency: constant Improves With: nothing Worsens With: nothing Associated Symptoms: denies other symptoms - Related Data Home Medications Medication Instructions Recorded Confirmed Aspirin 325 mg PO DAILY 10/28/13 07/16/18 Celecoxib [CeleBREX] 200 mg PO DAILY 10/28/13 07/16/18 Doxazosin [Cardura] 8 mg PO HS 10/28/13 07/16/18 Multivitamins, Thera [Multivitamin] 1 tab PO DAILY 10/28/13 07/16/18 Fexofenadine HCl [Mi Allergy] 180 mg PO DAILY 10/11/14 07/16/18 Modafinil [Provigil] 300 mg PO DAILY 10/11/14 07/16/18 Naproxen Sodium [Aleve] 220 mg PO DAILY PRN 02/09/17 07/16/18 Previous Rx's Medication Instructions Recorded Amoxic-Pot Clav 875-125Mg 1 tab PO Q12HR #42 tablet 07/03/18 [Augmentin 875-125] Allergies Allergy/AdvReac Type Severity Reaction Status Date / Time No Known Allergies Allergy Verified 07/16/18 09:37 Review of Systems ROS Statement: Those systems with pertinent positive or pertinent negative responses have been documented in the HPI. ROS Other: All systems not noted in ROS Statement are negative. Past Medical History Past Medical History: GERD/Reflux, Osteoarthritis (OA), Prostate Disorder, Skin Disorder, Sleep Apnea/CPAP/BIPAP Additional Past Medical History / Comment(s): PRE-CA SKIN LESIONS; BACK PAIN; HX RT RENAL CALCULUS, cellulitis of the lower legs with chronic venous stasis, morbid obesity, benign prostatic hypertrophy, obstructive sleep apnea no CPAP, gastroesophageal reflux disease, chronic back pain secondary to degenerative disc disease History of Any Multi-Drug Resistant Organisms: MRSA Date of last positivie culture/infection: 2014 MDRO Source:: finger Past Surgical History: Joint Replacement, Orthopedic Surgery Additional Past Surgical History / Comment(s): 06/30/18 CYSTOSCOPY REMOVAL OF BLADDER CALCULI AND W/ LT URETERAL STENT INSERTION,LT TOTAL KNEE; RT KNEE MAKOPLASTY; ABD LIPOMA REMOVED; RT RENAL CALCULUS LITHOTRIPSY, RT URETERAL STENT, TURP Past Anesthesia/Blood Transfusion Reactions: No Reported Reaction Past Psychological History: No Psychological Hx Reported Smoking Status: Former smoker Past Alcohol Use History: None Reported Past Drug Use History: None Reported - Past Family History Father Family Medical History: Cancer, Myocardial Infarction (PA) General Exam Limitations: no limitations General appearance: alert, in no apparent distress Head exam: Present: atraumatic, normocephalic, normal inspection Eye exam: Present: normal appearance, PERRL, EOMI. Absent: scleral icterus, conjunctival injection, periorbital swelling ENT exam: Present: normal exam, mucous membranes moist Neck exam: Present: normal inspection. Absent: tenderness, meningismus, lymphadenopathy Respiratory exam: Present: normal lung sounds bilaterally. Absent: respiratory distress, wheezes, rales, rhonchi, stridor Cardiovascular Exam: Present: regular rate, normal rhythm, normal heart sounds. Absent: systolic murmur, diastolic murmur, rubs, gallop, clicks GI/Abdominal exam: Present: soft, normal bowel sounds. Absent: distended, tenderness, guarding, rebound, rigid Extremities exam: Present: normal inspection, full ROM, normal capillary refill. Absent: tenderness, pedal edema, joint swelling, calf tenderness Back exam: Present: normal inspection Neurological exam: Present: alert, oriented X3, CN II-XII intact Psychiatric exam: Present: normal affect, normal mood Skin exam: Present: warm, dry, intact, normal color. Absent: rash Course Vital Signs 11/14/18 11/14/18 11/14/18 13:58 15:28 16:42 Temperature 101.7 F H 100.3 F H Pulse Rate 100 102 H 93 Respiratory 20 20 18 Rate Blood Pressure 162/87 134/70 133/69 O2 Sat by Pulse 94 L 97 96 Oximetry - Reevaluation(s) Reevaluation #1: 11/14/18 16:52 medical record is reviewed Reevaluation #2: 11/14/18 16:53 patient without pain, on IVF and ABx feeling improved Medical Decision Making - Medical Decision Making 72 male the ER for evaluation. Patient resents today for evaluation regards to fever abdominal pain UTI was infection, kidney stones. Patient be admitted for evaluation IV antibiotics and IVF - Lab Data Result diagrams: 11/14/18 14:47 11/14/18 14:47 Lab Results 11/14/18 11/14/18 11/14/18 Range/Units 14:47 14:47 14:47 WBC 17.4 H (3.8-10.6) k/uL RBC 4.28 L (4.30-5.90) m/uL Hgb 13.6 (13.0-17.5) gm/dL Hct 41.0 (39.0-53.0) % MCV 95.9 (80.0-100.0) fL MCH 31.9 (25.0-35.0) pg MCHC 33.2 (31.0-37.0) g/dL RDW 13.7 (11.5-15.5) % Plt Count 178 (150-450) k/uL Neutrophils % 91 % Lymphocytes % 3 % Monocytes % 4 % Eosinophils % 1 % Basophils % 0 % Neutrophils # 15.7 H (1.3-7.7) k/uL Lymphocytes # 0.5 L (1.0-4.8) k/uL Monocytes # 0.8 (0-1.0) k/uL Eosinophils # 0.2 (0-0.7) k/uL Basophils # 0.1 (0-0.2) k/uL PT (9.0-12.0) sec INR (<1.2) APTT (22.0-30.0) sec Sodium 137 (137-145) mmol/L Potassium 4.2 (3.5-5.1) mmol/L Chloride 103 (98-107) mmol/L Carbon Dioxide 26 (22-30) mmol/L Anion Gap 8 mmol/L BUN 18 (9-20) mg/dL Creatinine 0.59 L (0.66-1.25) mg/dL Est GFR (CKD-EPI)AfAm >90 (>60 ml/min/1.73 sqM) Est GFR (CKD-EPI)NonAf >90 (>60 ml/min/1.73 sqM) Glucose 103 H (74-99) mg/dL Plasma Lactic Acid Casey 1.3 (0.7-2.0) mmol/L Calcium 9.2 (8.4-10.2) mg/dL Phosphorus 2.0 L (2.5-4.5) mg/dL Magnesium 1.8 (1.6-2.3) mg/dL Total Bilirubin 0.7 (0.2-1.3) mg/dL AST 26 (17-59) U/L ALT 23 (21-72) U/L Alkaline Phosphatase 116 (38-126) U/L Creatine Kinase 72 (55-170) U/L Troponin I (0.000-0.034) ng/mL Total Protein 6.6 (6.3-8.2) g/dL Albumin 4.1 (3.5-5.0) g/dL 11/14/18 11/14/18 Range/Units 14:47 14:47 WBC (3.8-10.6) k/uL RBC (4.30-5.90) m/uL Hgb (13.0-17.5) gm/dL Hct (39.0-53.0) % MCV (80.0-100.0) fL MCH (25.0-35.0) pg MCHC (31.0-37.0) g/dL RDW (11.5-15.5) % Plt Count (150-450) k/uL Neutrophils % % Lymphocytes % % Monocytes % % Eosinophils % % Basophils % % Neutrophils # (1.3-7.7) k/uL Lymphocytes # (1.0-4.8) k/uL Monocytes # (0-1.0) k/uL Eosinophils # (0-0.7) k/uL Basophils # (0-0.2) k/uL PT 10.4 (9.0-12.0) sec INR 1.0 (<1.2) APTT 18.6 L (22.0-30.0) sec Sodium (137-145) mmol/L Potassium (3.5-5.1) mmol/L Chloride (98-107) mmol/L Carbon Dioxide (22-30) mmol/L Anion Gap mmol/L BUN (9-20) mg/dL Creatinine (0.66-1.25) mg/dL Est GFR (CKD-EPI)AfAm (>60 ml/min/1.73 sqM) Est GFR (CKD-EPI)NonAf (>60 ml/min/1.73 sqM) Glucose (74-99) mg/dL Plasma Lactic Acid Casey (0.7-2.0) mmol/L Calcium (8.4-10.2) mg/dL Phosphorus (2.5-4.5) mg/dL Magnesium (1.6-2.3) mg/dL Total Bilirubin (0.2-1.3) mg/dL AST (17-59) U/L ALT (21-72) U/L Alkaline Phosphatase (38-126) U/L Creatine Kinase (55-170) U/L Troponin I <0.012 (0.000-0.034) ng/mL Total Protein (6.3-8.2) g/dL Albumin (3.5-5.0) g/dL - EKG Data -: EKG Interpreted by Me (EKG shows sinus rhythm rate 97, MI 180, QRS 86, QTc 393) - Radiology Data Radiology results: report reviewed (cxr is negative for acute disaese, CT abd pelvis postivie for kidney stone), image reviewed Disposition Clinical Impression: Calculus of ureter, Calculus of kidney, Hydronephrosis with renal and ureteral calculus obstruction, Urinary tract infection Disposition: ADMITTED IP TO THIS [facility] Condition: Fair Is patient prescribed a controlled substance at d/c from ED?: No Referrals: Yan Gaona MD [Primary Care Provider] - 1-2 days
[2018-11-14 15:21] LABS: Anion Gap 8 mmol/L; Chloride 103 mmol/L (98-107); Potassium 4.2 mmol/L (3.5-5.1); Sodium 137 mmol/L (137-145)
[2018-11-14 15:22] LABS: Prothrombin Time 10.4 sec (9.0-12.0)
[2018-11-14 15:27] LABS: Partial Thromboplastin Time 18.6 sec (22.0-30.0)
[2018-11-14 16:55] LABS: Amorphous Sediment,Urine Few /hpf; Appearance,Urine Cloudy (Clear); Bacteria,Urine Many /hpf; Bilirubin,Urine Negative (Negative); Blood,Urine Small (Negative); Color,Urine Yellow; Glucose,Urine (UA) Negative (Negative); Ketones,Urine Negative (Negative); Leukocyte Esterase,Urine Large (Negative); Mucus,Urine Rare /hpf; Nitrite,Urine Negative (Negative); Protein,Urine 1+ (Negative); RBC,Urine 45 /hpf (0-5); Specific Gravity,Urine 1.015 (1.001-1.035); Squamous Epithelial Cell,Urine 1 /hpf (0-4); Urobilinogen,Urine <2.0 mg/dL (<2.0); WBC,Urine >182 /hpf (0-5)
--- NOTE | 2018-11-14 17:26 | XR ---
EXAMINATION TYPE: XR chest 2V DATE OF EXAM: 11/14/2018 COMPARISON: 06/25/2018 INDICATION: Weakness TECHNIQUE: Frontal and lateral views of the chest are obtained. FINDINGS: The heart size is normal. The pulmonary vasculature is normal. The lungs are clear. IMPRESSION: 1. No acute pulmonary process.
--- NOTE | 2018-11-14 17:32 | CT ---
EXAMINATION TYPE: CT abdomen pelvis wo con DATE OF EXAM: 11/14/2018 COMPARISON: 06/29/2018 INDICATION: Back pain. Hx renal stones. 07/10/18 cysto w/Lt renal stent. DLP: 1681 mGycm, Automated exposure control for dose reduction was used. CONTRAST: 0 mL of Isovue 300. Study performed without Oral Contrast TECHNIQUE: Axial images were obtained from above the diaphragm to the pubic rami in the axial plane a t 5 mm thick sections. Reconstructed images are reviewed on the computer in the coronal plane. FINDINGS: Limited CT sections are obtained the lung bases. The lung bases are clear. Coronary artery calcific ation is noted. CT ABDOMEN: Liver: Normal Spleen: Normal Pancreas: Normal Adrenal glands: The adrenal glands are normal. Gallbladder: Normal Kidneys: No masses are evident. No hydronephrosis is present. Previous hydronephrosis has resolved. No cysts are present. Punctate nonobstructing renal stones are present bilaterally. The largest on t he right is at the inferior pole and measures 0 3 cm. Very faint calcification is present on the left . The best visualized in the upper pole and appears obstructed measuring 0.2 cm. Aorta: Normal Inferior vena cava: Normal. CT PELVIS: Scattered diverticuli within the sigmoid colon. Studies performed without oral contrast causing limit ation on evaluation. Appendix: Normal as visualized Urinary bladder: Decompressed limiting evaluation Genitourinary structures: Prostate is somewhat prominent. Osseous structures: No suspicious lytic or sclerotic lesions. Small bone island may be within the ant erior left symphysis. Degenerative facet changes are within the lumbar spine. Degenerative disc fowler es are in the lower lumbar spine. IMPRESSIONS: 1. Small bilateral renal stones. Obstructing renal or ureteral stones are not identified.
--- NOTE | 2018-11-14 19:17 | P.HPIM ---
History of Present Illness H&P Date: 11/14/18 Chief Complaint: Fever/back pain 72-year-old male with PMH of BPH and urine retention, self caths twice a day presents the ED for fever and back pain. Patient states that he woke up this morning with a fever of 100.7F. He also complains of bilateral back pain that is annoying in nature. Patient rates the pain at 3 out of 10. There is no radiation of pain. He denies any dysuria or hematuria. Patient states that he was admitted in June for a 10 mm stone for which he underwent lithotripsy. Patient states that he has urinary retention secondary to BPH. If he drinks 2000 mL a day, he is usually able to urinate 800-1000 mL and has to straight cath in order to eliminate the rest of his urine. He denies any headache, lower extremity edema, nausea, vomiting, cough, chest pain, shortness of breath, changes in urination or bowel habits. No changes in appetite or weight. No dizziness. No numbness/weakness/tingling of the extremities. In the ED, patient had a T-max of 101.7 Fahrenheit. His pulse was as high as 102. CBC showed leukocytosis of 17.4. UA showed large leukocyte esterase. Patient is admitted for sepsis secondary to UTI. Review of Systems Pertinent positives and negatives as discussed in HPI, a complete review of systems was performed and all other systems are negative. Past Medical History Past Medical History: GERD/Reflux, Osteoarthritis (OA), Prostate Disorder, Skin Disorder, Sleep Apnea/CPAP/BIPAP Additional Past Medical History / Comment(s): PRE-CA SKIN LESIONS; BACK PAIN; HX RT RENAL CALCULUS, cellulitis of the lower legs with chronic venous stasis, morbid obesity, benign prostatic hypertrophy, obstructive sleep apnea no CPAP, gastroesophageal reflux disease, chronic back pain secondary to degenerative disc disease History of Any Multi-Drug Resistant Organisms: MRSA Date of last positivie culture/infection: 2014 MDRO Source:: finger Past Surgical History: Joint Replacement, Orthopedic Surgery Additional Past Surgical History / Comment(s): 06/30/18 CYSTOSCOPY REMOVAL OF KADEN DDER CALCULI AND W/ LT URETERAL STENT INSERTION,LT TOTAL KNEE; RT KNEE MAKOPLASTY; ABD LIPOMA REMOVED; RT RENAL CALCULUS LITHOTRIPSY, RT URETERAL STENT, TURP Past Anesthesia/Blood Transfusion Reactions: No Reported Reaction Past Psychological History: No Psychological Hx Reported Smoking Status: Former smoker Past Alcohol Use History: None Reported Past Drug Use History: None Reported - Past Family History Father Family Medical History: Cancer, Myocardial Infarction (PA) Medications and Allergies Home Medications Medication Instructions Recorded Confirmed Type Aspirin 325 mg PO DAILY 10/28/13 07/16/18 History Celecoxib [CeleBREX] 200 mg PO DAILY 10/28/13 07/16/18 History Doxazosin [Cardura] 8 mg PO HS 10/28/13 07/16/18 History Multivitamins, Thera [Multivitamin] 1 tab PO DAILY 10/28/13 07/16/18 History Fexofenadine HCl [Mi Allergy] 180 mg PO DAILY 10/11/14 07/16/18 History Modafinil [Provigil] 300 mg PO DAILY 10/11/14 07/16/18 History Naproxen Sodium [Aleve] 220 mg PO DAILY PRN 02/09/17 07/16/18 History Amoxic-Pot Clav 875-125Mg 1 tab PO Q12HR #42 tablet 07/03/18 07/16/18 Rx [Augmentin 875-125] Allergies Allergy/AdvReac Type Severity Reaction Status Date / Time No Known Allergies Allergy Verified 07/16/18 09:37 Physical Exam Vitals: Vital Signs Temp Pulse Resp BP Pulse Ox 11/14/18 16:42 100.3 F H 93 18 133/69 96 11/14/18 15:28 102 H 20 134/70 97 11/14/18 13:58 101.7 F H 100 20 162/87 94 L Intake and Output 11/14/18 11/14/18 11/14/18 06:59 14:59 22:59 Other: Weight 127.913 kg General: [non toxic], [morbidly obese], [appears at stated age] Derm: [warm], [dry] Head: [atraumatic], [normocephalic], [symmetric] Eyes: [EOMI], [no lid lag], [anicteric sclera] Mouth: [no lip lesion], [mucus membranes moist] Cardiovascular: [S1S2 reg], [no murmur], [positive DP pulse bilateral] Lungs: [CTA bilateral], [no rhonchi, no rales] , [no accessory muscle use] Abdominal: [soft], [ nontender to palpation], [no guarding], [no appreciable organomegaly] Ext: [no gross muscle atrophy], [no edema], [no contractures] Neuro: [no focal neuro deficits] Psych: [Alert], [oriented], [appropriate affect] Results CBC & Chem 7: 11/14/18 14:47 11/14/18 14:47 Labs: Abnormal Lab Results - Last 24 Hours (Table) 11/14/18 11/14/18 11/14/18 Range/Units 14:47 14:47 14:47 WBC 17.4 H (3.8-10.6) k/uL RBC 4.28 L (4.30-5.90) m/uL Neutrophils # 15.7 H (1.3-7.7) k/uL Lymphocytes # 0.5 L (1.0-4.8) k/uL APTT 18.6 L (22.0-30.0) sec Creatinine 0.59 L (0.66-1.25) mg/dL Glucose 103 H (74-99) mg/dL Phosphorus 2.0 L (2.5-4.5) mg/dL Urine Protein (Negative) Urine Blood (Negative) Ur Leukocyte Esterase (Negative) Urine RBC (0-5) /hpf Urine WBC (0-5) /hpf Urine WBC Clumps (None) /hpf Amorphous Sediment (None) /hpf Urine Bacteria (None) /hpf Urine Mucus (None) /hpf 11/14/18 Range/Units 16:00 WBC (3.8-10.6) k/uL RBC (4.30-5.90) m/uL Neutrophils # (1.3-7.7) k/uL Lymphocytes # (1.0-4.8) k/uL APTT (22.0-30.0) sec Creatinine (0.66-1.25) mg/dL Glucose (74-99) mg/dL Phosphorus (2.5-4.5) mg/dL Urine Protein 1+ H (Negative) Urine Blood Small H (Negative) Ur Leukocyte Esterase Large H (Negative) Urine RBC 45 H (0-5) /hpf Urine WBC >182 H (0-5) /hpf Urine WBC Clumps Many H (None) /hpf Amorphous Sediment Few H (None) /hpf Urine Bacteria Many H (None) /hpf Urine Mucus Rare H (None) /hpf Thrombosis Risk Factor Assmnt - Choose All That Apply Any of the Below Risk Factors Present?: Yes Each Factor Represents 1 point: Obesity (BMI >25) Other Risk Factors: Yes Each Risk Factor Represents 2 Points: Age 61-74 years Thrombosis Risk Factor Assessment Total Risk Factor Score: 3 Thrombosis Risk Factor Assessment Level: Moderate Risk Assessment and Plan Assessment: Assessment and Plan Sepsis secondary to UTI BPH Morbid obesity GERD Patient is sepsis criteria (leukocytosis of 17.4, tachycardia up to 102, UA with large leukocyte esterase). Risk factor including catheter use. Lactic acid negative. Plan: Continue Rocephin IV. Tylenol as needed for fever. Continue normal saline at 100 mL/h. Follow blood culture, urine culture. With urinary retention. Plan: Continue doxazosin. Follow urology consult. BMI 46.9. Plan: Structured weight loss program. Plan: Protonix by mouth. DVT prophylaxis: [Heparin] Discussed with: [Patient and ] Anticipated discharge: [1-2 days] Anticipated discharge place: [Home] A total of [45] minutes was spent on the care of this complex patient more than 50% of the time was spent in counseling and care coordination. Patient names his Renate decision-maker in the case that he can't make decisions for himself. Patient reiterates that he remain full code. Patient admitted for sepsis likely secondary to UTI. Urology is consulted. Patient is pending clinical improvement.
[2018-11-14] MEDS ORDERED: DEXAMETHASONE SOD PHOSPHATE 10 MG/ML 1 ML VIAL IV STA (20:19)
[2018-11-14] MEDS ORDERED: DOXAZOSIN 4 MG TAB PO SCH (21:00)
[2018-11-14] MEDS: SODIUM CHLORIDE 0.9% 500 ML 500 ML IV SCH ×2 (21:28→21:29)
[2018-11-14] MEDS ORDERED: NALOXONE 0.4 MG/ML 1 ML VIAL IV PRN (21:32)
[2018-11-14] MEDS ORDERED: HYDROcodone/APAP 5-325MG 1 EACH TAB PO PRN (21:32)
[2018-11-14] MEDS ORDERED: ACETAMINOPHEN TAB 325 MG TAB PO PRN (21:32)
[2018-11-14 23:01] VITALS: RESP 18
[2018-11-15] MEDS ORDERED: DEXAMETHASONE SOD PHOSPHATE 4 MG/ML 1 ML VIAL IV SCH
[2018-11-15] MEDS: DOXAZOSIN 4 MG TAB PO SCH ×2 (01:44→20:51)
[2018-11-15] MEDS: SODIUM CHLORIDE 0.9% 500 ML 500 ML IV SCH (01:46)
[2018-11-15] MEDS: SODIUM CHLORIDE 0.9% 1,000 ML IV SCH ×2 (01:49→08:42)
[2018-11-15] MEDS: ASPIRIN 325 MG TAB PO SCH (08:42)
[2018-11-15] MEDS: PANTOPRAZOLE 40 MG TABLET PO SCH (08:42)
[2018-11-15] MEDS: HEPARIN SODIUM,PORCINE 5,000 UNIT/ML 1 ML VIAL SQ SCH ×2 (08:42→20:51)
[2018-11-15 09:03] LABS: Basophils % (A) 0 %; Eosinophils # (A) 0.3 k/uL (0-0.7); Eosinophils % (A) 2 %; HCT 37.3 % (39.0-53.0); HGB 12.2 gm/dL (13.0-17.5); Lymphocytes # (A) 0.8 k/uL (1.0-4.8); Lymphocytes % (A) 7 %; MCH 32.2 pg (25.0-35.0); MCHC 32.6 g/dL (31.0-37.0); MCV 98.8 fL (80.0-100.0); Mean Platelet Volume 7.6; Monocytes # (A) 0.6 k/uL (0-1.0); Monocytes % (A) 5 %; Neutrophils # (A) 9.5 k/uL (1.3-7.7); Neutrophils % (A) 84 %; Platelet Count 153 k/uL (150-450); RBC 3.78 m/uL (4.30-5.90); RDW 13.9 % (11.5-15.5); WBC 11.3 k/uL (3.8-10.6)
[2018-11-15 09:14] LABS: ALT 18 U/L (21-72); AST 24 U/L (17-59); Albumin 3.1 g/dL (3.5-5.0); Alkaline Phosphatase 77 U/L (38-126); Anion Gap 4 mmol/L; Blood Urea Nitrogen 19 mg/dL (9-20); Calcium 8.1 mg/dL (8.4-10.2); Carbon Dioxide 26 mmol/L (22-30); Chloride 107 mmol/L (98-107); Glucose 159 mg/dL (74-99); Potassium 4.5 mmol/L (3.5-5.1); Sodium 137 mmol/L (137-145); Total Bilirubin 0.6 mg/dL (0.2-1.3); Total Protein 5.3 g/dL (6.3-8.2)
[2018-11-15] MEDS: MODAFINIL 100 MG TAB PO SCH (10:04)
--- NOTE | 2018-11-15 12:21 | P.PN ---
Subjective Progress Note Date: 11/15/18 Principal diagnosis: fever and back pain Patient is a 72-year-old male past medical history of urinary retention (straight caths twice daily), BPH, kidney stones, and LOCO who presented to the ER with complaints of fever and back pain. In the ER he underwent an extensive evaluation. On presentation he had a fever of 101.7, heart rate of 100, and blood pressure 162/87. Initial laboratory analysis demonstrated a white blood cell count of 17.4, phosphorus of 2, but was otherwise unremarkable. Urinalysis appeared grossly infected. He was given a dose of Rocephin and started on IV fluids. Computed tomography scan of the abdomen and pelvis showed nonobstructing renal calculi. He was admitted for further monitoring. On the morning of 11/15 his white blood cell had decreased to 11, he remained afebrile. Patient seen and examined at bedside. Feeling much better than yesterday. Denies any chest pain, shortness breath, nausea, vomiting, or diarrhea. Back pa in is improved. States that he's straight cast twice daily. Has had a history of urinary tract infection in the past. Spent 10 days in the hospital in June 2018 secondary to urinary tract infection associated with nephrolithiasis. Objective - Vital Signs Vital signs: Vital Signs Temp 98.1 F 11/15/18 04:50 Pulse 73 11/15/18 04:50 Resp 18 11/15/18 04:50 BP 118/68 11/15/18 04:50 Pulse Ox 95 11/15/18 04:50 Intake & Output 11/14/18 11/15/18 11/15/18 18:59 06:59 18:59 Intake Total 2000 240 Output Total 1600 600 Balance 400 -360 Weight 127.913 kg Intake: Amount of Fluid Infused ( 2000 ml) Oral 240 Output: Urine 1600 600 Straight 600 Other: Voiding Method Self-Catheterization Self-Catheterization - Exam General: non toxic, no distress, appears at stated age, obese Derm: warm, dry Head: atraumatic, normocephalic, symmetric Eyes: EOMI, no lid lag, anicteric sclera Mouth: no lip lesion, mucus membranes moist Cardiovascular: S1S2 reg, no murmur, positive posterior tibial pulse bilateral, Lungs: CTA bilateral, no rhonchi, no rales , no accessory muscle use Abdominal: soft, nontender to palpation, no guarding, no appreciable organomegaly Ext: no gross muscle atrophy, trace edema, no contractures Neuro: CN II-XI grossly intact, no focal neuro deficits Psych: Alert, oriented, appropriate affect - Labs CBC & Chem 7: 11/15/18 08:28 11/15/18 08:28 Labs: Abnormal Lab Results - Last 24 Hours (Table) 11/14/18 11/14/18 11/14/18 Range/Units 14:47 14:47 14:47 WBC 17.4 H (3.8-10.6) k/uL RBC 4.28 L (4.30-5.90) m/uL Hgb (13.0-17.5) gm/dL Hct (39.0-53.0) % Neutrophils # 15.7 H (1.3-7.7) k/uL Lymphocytes # 0.5 L (1.0-4.8) k/uL APTT 18.6 L (22.0-30.0) sec Creatinine 0.59 L (0.66-1.25) mg/dL Glucose 103 H (74-99) mg/dL Calcium (8.4-10.2) mg/dL Phosphorus 2.0 L (2.5-4.5) mg/dL ALT (21-72) U/L Total Protein (6.3-8.2) g/dL Albumin (3.5-5.0) g/dL Urine Protein (Negative) Urine Blood (Negative) Ur Leukocyte Esterase (Negative) Urine RBC (0-5) /hpf Urine WBC (0-5) /hpf Urine WBC Clumps (None) /hpf Amorphous Sediment (None) /hpf Urine Bacteria (None) /hpf Urine Mucus (None) /hpf 11/14/18 11/15/18 11/15/18 Range/Units 16:00 08:28 08:28 WBC 11.3 H (3.8-10.6) k/uL RBC 3.78 L (4.30-5.90) m/uL Hgb 12.2 L (13.0-17.5) gm/dL Hct 37.3 L (39.0-53.0) % Neutrophils # 9.5 H (1.3-7.7) k/uL Lymphocytes # 0.8 L (1.0-4.8) k/uL APTT (22.0-30.0) sec Creatinine 0.57 L (0.66-1.25) mg/dL Glucose 159 H (74-99) mg/dL Calcium 8.1 L (8.4-10.2) mg/dL Phosphorus (2.5-4.5) mg/dL ALT 18 L (21-72) U/L Total Protein 5.3 L (6.3-8.2) g/dL Albumin 3.1 L (3.5-5.0) g/dL Urine Protein 1+ H (Negative) Urine Blood Small H (Negative) Ur Leukocyte Esterase Large H (Negative) Urine RBC 45 H (0-5) /hpf Urine WBC >182 H (0-5) /hpf Urine WBC Clumps Many H (None) /hpf Amorphous Sediment Few H (None) /hpf Urine Bacteria Many H (None) /hpf Urine Mucus Rare H (None) /hpf Microbiology - Last 24 Hours (Table) 11/14/18 21:06 Urine Culture - Preliminary Urine,Catheterized Assessment and Plan Assessment: Urinary tract infection with sepsis, present on admission, associated with straight cath -DC IV fluids -Continue Rocephin -Await urine culture -Await urology recommendations Chronic urinary retention, BPH -Straight cath every 6 hours -Continue with Doxazosin Morbid obesity with BMI 46.9 -Outpatient structured weight loss DVT prophylaxis: Heparin Discussed with: Patient, nursing Anticipated discharge: [id number]: home A total of 35 minutes was spent on the care of this complex patient more than 50% of the time was spent in counseling and care coordination.
--- NOTE | 2018-11-15 14:04 | P.GSCN ---
History of Present Illness Consult date: 11/15/18 Reason for Consult: UTI Requesting physician: Goldie Turpin History of present illness: He is a 72-year-old male with a history of urolithiasis. He was admitted in June 2018 with an Aerococcus urinae UTI. A CT scan showed evidence of left hydronephrosis due to a 7 mm left UPJ calculus. He underwent placement of a left ureteral stent, and was treated with antibiotics. At the time of stent placement, he was found to have several bladder calculi. He subsequently underwent left ureteroscopy with laser lithotripsy, and the bladder calculi were removed at that time. He has a history of obstructive voiding symptoms, for which he continues to take doxazosin 8 mg daily. He underwent a TURP in October 2013, and he continues to empty his bladder incompletely. In view of this, he self catheterizes twice daily. Cath volumes are typically 265119 mL, and he does not void much spontaneously. He reports occasional incontinence, typically when his bladder is full and he exerts himself. He has occasionally experienced gross hematuria. He experiences dysuria only when his bladder is full. He presented to the emergency room yesterday with complaints of fever, chills, and weakness. Review of Systems - Constitutional Reports chills, Reports fever, Reports weakness - Cardiovascular Denies chest pain - Respiratory Denies dyspnea - Gastrointestinal Denies nausea, Denies vomiting - Genitourinary Reports hematuria Past Medical History Past Medical History: GERD/Reflux, Osteoarthritis (OA), Prostate Disorder, Skin Disorder, Sleep Apnea/CPAP/BIPAP Additional Past Medical History / Comment(s): PRE-CA SKIN LESIONS; BACK PAIN; HX RT RENAL CALCULUS, cellulitis of the lower legs with chronic venous stasis, morbid obesity, benign prostatic hypertrophy, obstructive sleep apnea no CPAP, g astroesophageal reflux disease, chronic back pain secondary to degenerative disc disease History of Any Multi-Drug Resistant Organisms: MRSA Year Discovered:: 2014 MDRO Source:: finger Past Surgical History: Joint Replacement, Orthopedic Surgery Additional Past Surgical History / Comment(s): 06/30/18 CYSTOSCOPY REMOVAL OF BLADDER CALCULI AND W/ LT URETERAL STENT INSERTION,LT TOTAL KNEE; RT KNEE MAKOPLASTY; ABD LIPOMA REMOVED; RT RENAL CALCULUS LITHOTRIPSY, RT URETERAL ST ENT, TURP; bilateral cataract removal with lens implants Past Anesthesia/Blood Transfusion Reactions: No Reported Reaction Past Psychological History: No Psychological Hx Reported Smoking Status: Former smoker Past Alcohol Use History: None Reported Additional Past Alcohol Use History / Comment(s): Patient was a smoker and quit in 1988. No illicit drug use or alcohol use. He lives at home with his . 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 He denies any recent travel or significant hobbies. He has 1 dog and 2 cats in the home. 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 Past Drug Use History: None Reported - Past Family History Father Family Medical History: Cancer Additional Family Medical History / Comment(s): Grandfather had heart attack, father at 67 Medications and Allergies Home Medications Medication Instructions Recorded Confirmed Type Aspirin 325 mg PO DAILY 10/28/13 11/14/18 History Celecoxib [CeleBREX] 200 mg PO DAILY 10/28/13 11/14/18 History Doxazosin [Cardura] 8 mg PO HS 10/28/13 11/14/18 History Multivitamins, Thera [Multivitamin] 1 tab PO DAILY 10/28/13 11/14/18 History Fexofenadine HCl [Mi Allergy] 180 mg PO DAILY 10/11/14 11/14/18 History Modafinil [Provigil] 300 mg PO DAILY 10/11/14 11/14/18 History Naproxen Sodium [Aleve] 220 mg PO DAILY PRN 02/09/17 11/14/18 History Allergies Allergy/AdvReac Type Severity Reaction Status Date / Time No Known Allergies Allergy Verified 11/14/18 20:25 Surgical - Exam Vital Signs Temp Pulse Resp BP Pulse Ox 101.7 F H 100 20 162/87 94 L 11/14/18 13:58 11/14/18 13:58 11/14/18 13:58 11/14/18 13:58 11/14/18 13:58 - General well developed, well nourished, no distress - Respiratory normal respiratory effort - Abdomen Abdomen: soft, non tender, no guarding, no rigid, no rebound - Genitourinary normal penis with no external lesions, testicles non-tender - Psychiatric oriented to time, oriented to person, oriented to place, speech is normal, memory intact Results - Labs 11/15/18 08:28 11/15/18 08:28 Abnormal Lab Results - Last 24 Hours (Table) 11/14/18 11/14/18 11/14/18 Range/Units 14:47 14:47 14:47 WBC 17.4 H (3.8-10.6) k/uL RBC 4.28 L (4.30-5.90) m/uL Neutrophils # 15.7 H (1.3-7.7) k/uL Lymphocytes # 0.5 L (1.0-4.8) k/uL APTT 18.6 L (22.0-30.0) sec Creatinine 0.59 L (0.66-1.25) mg/dL Glucose 103 H (74-99) mg/dL Phosphorus 2.0 L (2.5-4.5) mg/dL Urine Protein (Negative) Urine Blood (Negative) Ur Leukocyte Esterase (Negative) Urine RBC (0-5) /hpf Urine WBC (0-5) /hpf Urine WBC Clumps (None) /hpf Amorphous Sediment (None) /hpf Urine Bacteria (None) /hpf Urine Mucus (None) /hpf 11/14/18 Range/Units 16:00 WBC (3.8-10.6) k/uL RBC (4.30-5.90) m/uL Neutrophils # (1.3-7.7) k/uL Lymphocytes # (1.0-4.8) k/uL APTT (22.0-30.0) sec Creatinine (0.66-1.25) mg/dL Glucose (74-99) mg/dL Phosphorus (2.5-4.5) mg/dL Urine Protein 1+ H (Negative) Urine Blood Small H (Negative) Ur Leukocyte Esterase Large H (Negative) Urine RBC 45 H (0-5) /hpf Urine WBC >182 H (0-5) /hpf Urine WBC Clumps Many H (None) /hpf Amorphous Sediment Few H (None) /hpf Urine Bacteria Many H (None) /hpf Urine Mucus Rare H (None) /hpf Diabetes panel 11/14/18 Range/Units 14:47 Sodium 137 (137-145) mmol/L Potassium 4.2 (3.5-5.1) mmol/L Chloride 103 (98-107) mmol/L Carbon Dioxide 26 (22-30) mmol/L BUN 18 (9-20) mg/dL Creatinine 0.59 L (0.66-1.25) mg/dL Glucose 103 H (74-99) mg/dL Calcium 9.2 (8.4-10.2) mg/dL AST 26 (17-59) U/L ALT 23 (21-72) U/L Alkaline Phosphatase 116 (38-126) U/L Total Protein 6.6 (6.3-8.2) g/dL Albumin 4.1 (3.5-5.0) g/dL Calcium panel 11/14/18 Range/Units 14:47 Calcium 9.2 (8.4-10.2) mg/dL Phosphorus 2.0 L (2.5-4.5) mg/dL Albumin 4.1 (3.5-5.0) g/dL Pituitary panel 11/14/18 Range/Units 14:47 Sodium 137 (137-145) mmol/L Potassium 4.2 (3.5-5.1) mmol/L Chloride 103 (98-107) mmol/L Carbon Dioxide 26 (22-30) mmol/L BUN 18 (9-20) mg/dL Creatinine 0.59 L (0.66-1.25) mg/dL Glucose 103 H (74-99) mg/dL Calcium 9.2 (8.4-10.2) mg/dL Adrenal panel 11/14/18 Range/Units 14:47 Sodium 137 (137-145) mmol/L Potassium 4.2 (3.5-5.1) mmol/L Chloride 103 (98-107) mmol/L Carbon Dioxide 26 (22-30) mmol/L BUN 18 (9-20) mg/dL Creatinine 0.59 L (0.66-1.25) mg/dL Glucose 103 H (74-99) mg/dL Calcium 9.2 (8.4-10.2) mg/dL Total Bilirubin 0.7 (0.2-1.3) mg/dL AST 26 (17-59) U/L ALT 23 (21-72) U/L Alkaline Phosphatase 116 (38-126) U/L Total Protein 6.6 (6.3-8.2) g/dL Albumin 4.1 (3.5-5.0) g/dL - Imaging CT scan - abdomen: report reviewed, image reviewed Assessment and Plan (1) Urinary tract infection Current Visit: Yes Status: Acute Code(s): N39.0 - URINARY TRACT INFECTION, SITE NOT SPECIFIED SNOMED Code(s): 64943237 (2) Incomplete emptying of bladder due to benign prostatic hyperplasia Current Visit: Yes Status: Acute Code(s): N40.1 - BENIGN PROSTATIC HYPERPLASIA WITH LOWER URINARY TRACT SYMP; R39.14 - FEELING OF INCOMPLETE BLADDER EMPTYING SNOMED Code(s): 680554838 Plan: I reviewed the computed tomography scan, which shows only a couple tiny renal calculi with no evidence of hydronephrosis. There also appears to be a small bladder calculus. A urine culture is pending. In the meantime, he will receive ceftriaxone. I have suggested he increase his catheterization frequency to 3 times daily. Time with Patient: Greater than 30
[2018-11-16] MEDS: ASPIRIN 325 MG TAB PO SCH (07:52)
[2018-11-16] MEDS: PANTOPRAZOLE 40 MG TABLET PO SCH (07:52)
[2018-11-16] MEDS: HEPARIN SODIUM,PORCINE 5,000 UNIT/ML 1 ML VIAL SQ SCH ×2 (07:52→20:15)
[2018-11-16] MEDS: MODAFINIL 100 MG TAB PO SCH (07:52)
[2018-11-16] MEDS ORDERED: DOCUSATE 100 MG CAP PO PRN (08:08)
--- NOTE | 2018-11-16 08:27 | P.PN ---
Progress Note - Text Progress Note Date: 11/16/18 Daniel is currently afebrile. His only complaint is mild constipation. The urine culture was pending. It is my feeling that he can be discharged home on oral antibiotics once the infecting organism has been identified. I have suggested he increase his catheterization frequency to 3 times daily.
--- NOTE | 2018-11-16 15:42 | P.PN ---
Subjective Progress Note Date: 11/16/18 (delayed charting patient seen at 1130) Principal diagnosis: fever and back pain Patient is a 72-year-old male past medical history of urinary retention (straight caths twice daily), BPH, kidney stones, and LOCO who presented to the ER with complaints of fever and back pain. In the ER he underwent an extensive evaluation. On presentation he had a fever of 101.7, heart rate of 100, and blood pressure 162/87. Initial laboratory analysis demonstrated a white blood cell count of 17.4, phosphorus of 2, but was otherwise unremarkable. Urinalysis appeared grossly infected. He was given a dose of Rocephin and started on IV fluids. Computed tomography scan of the ab domen and pelvis showed nonobstructing renal calculi. He was admitted for further monitoring. On the morning of 11/15 his white blood cell had decreased to 11, he remained afebrile. Urine culture resulted gram-negative bacilli. Patient seen and examined at bedside. Feeling well. Denies any back pain, nausea, vomiting, or diarrhea. Increasing lower extremity edema. Patient states it is secondary to not having his compression stockings. Does not want to try our compression stockings or Higinio wraps at this time is not bothering him. He'll attempt to elevate legs. Objective - Vital Signs Vital signs: Vital Signs Temp 98.0 F 11/16/18 14:12 Pulse 69 11/16/18 14:12 Resp 18 11/16/18 14:12 BP 160/89 11/16/18 14:12 Pulse Ox 96 11/16/18 14:12 Intake & Output 11/15/18 11/16/18 11/16/18 18:59 06:59 18:59 Intake Total 480 850 240 Output Total 1200 480 750 Balance -720 370 -510 Intake: Oral 480 850 240 Output: Urine 1200 480 750 Straight 1200 750 Other: Voiding Method Self-Catheterization Self-Catheterization Self-Catheterization # Voids 0 2 # Bowel Movements 0 0 - Exam General: non toxic, no distress, appears at stated age, obese Derm: warm, dry Head: atraumatic, normocephalic, symmetric Eyes: EOMI, no lid lag, anicteric sclera Mouth: no lip lesion, mucus membranes moist Cardiovascular: S1S2 reg, no murmur, positive posterior tibial pulse bilateral, Lungs: CTA bilateral, no rhonchi, no rales , no accessory muscle use Abdominal: soft, nontender to palpation, no guarding, no appreciable organomegaly Ext: no gross muscle atrophy, 1+ edema, no contractures Neuro: CN II-XI grossly intact, no focal neuro deficits Psych: Alert, oriented, appropriate affect - Labs CBC & Chem 7: 11/15/18 08:28 11/15/18 08:28 Labs: Microbiology - Last 24 Hours (Table) 11/14/18 21:06 Urine Culture - Preliminary Urine,Catheterized Gram Neg Bacilli 11/14/18 21:06 Blood Culture - Preliminary Blood No Growth after 24 hours 11/14/18 14:47 Blood Culture - Preliminary Blood No Growth after 24 hours Assessment and Plan Assessment: Urinary tract infection with sepsis, present on admission, associated with straight cath -Continue Rocephin -urine culture GNB- ID and susceptibilities pending -urology recommendations appreciated, self cath TID at home Chronic urinary retention, BPH -Straight cath every 6 hours -Continue with Doxazosin Morbid obesity with BMI 46.9 -Outpatient structured weight loss DVT prophylaxis: Heparin Discussed with: Patient, nursing Anticipated discharge: [address]: home A total of 20 minutes was spent on the care of this complex patient more than 50% of the time was spent in counseling and care coordination.
[2018-11-16] MEDS: DOXAZOSIN 4 MG TAB PO SCH (20:15)
[2018-11-17 05:48] VITALS: BP 155/88; PULSE 70; TEMP 97.9
[2018-11-17] MEDS: PANTOPRAZOLE 40 MG TABLET PO SCH (07:10)
[2018-11-17] MEDS: ASPIRIN 325 MG TAB PO SCH (07:10)
[2018-11-17] MEDS: MODAFINIL 100 MG TAB PO SCH (07:10)
[2018-11-17] MEDS: HEPARIN SODIUM,PORCINE 5,000 UNIT/ML 1 ML VIAL SQ SCH (07:10)
--- NOTE | 2018-11-17 20:35 | P.DS ---
Providers Date of admission: 11/14/18 20:18 Expected date of discharge: 11/17/18 Attending physician: Goldie Turpin MD Consults: 11/14/18 21:27 Consult Physician Routine Consulting Provider: Chance Joy Consult Reason/Comments: Urinary retention Do you want consulting provider notified?: Yes Primary care physician: Yan Gaona Hospital Course: Discharge Diagnosis: E. 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 In the ER he underwent an extensive evaluation. On presentation he had a fever of 101.7, heart rate of 100, and blood pressure 162/87. Initial laboratory analysis demonstrated a white blood cell count of 17.4, phosphorus of 2, but was otherwise unremarkable. Urinalysis appeared grossly infected. He was given a dose of Rocephin and started on IV fluids. Computed tomography scan of the abdomen and pelvis showed nonobstructing renal calculi. He was admitted for further monitoring. On the morning of 11/15 his white blood cell had decreased to 11, he remained afebrile. He was seen by urology who recommended increasing straight cath at home to 3 times daily. Patient has a history of resistant E. coli UTI. He was monitored until results of urine culture were available. He is placed on Vantin. He'll complete another 15 doses for a total of 10 days of therapy. He'll follow-up with urology next week. He'll follow-up with his PCP in 1-2 days. Patient seen and examined at bedside. Denies any chest pain, shortness of breath, or dysuria. Denies any diarrhea. Vital signs reviewed and stable. General: non toxic, no distress, appears at stated age, obese Derm: warm, dry Head: atraumatic, normocephalic, symmetric Eyes: EOMI, no lid lag, anicteric sclera Mouth: no lip lesion, mucus membranes moist Cardiovascular: S1S2 reg, no murmur, positive posterior tibial pulse bilateral, Lungs: CTA bilateral, no rhonchi, no rales , no accessory muscle use Abdominal: soft, nontender to palpation, no guarding, no appreciable organomegaly Ext: no gross muscle atrophy, 2+ edema, no contractures Neuro: CN II-XI grossly intact, no focal neuro deficits Psych: Alert, oriented, appropriate affect A total of 22 minutes of time were spent preparing this complex discharge summary . Pertinent Studies: CT abdomen and pelvis-nonobstructing renal calculi Patient Condition at Discharge: Stable Plan - Discharge Summary New Discharge Prescriptions: New Cefpodoxime Proxetil [Vantin] 200 mg PO Q12HR #15 tab Continue Celecoxib [CeleBREX] 200 mg PO DAILY Doxazosin [Cardura] 8 mg PO HS Multivitamins, Thera [Multivitamin (formulary)] 1 tab PO DAILY Aspirin 325 mg PO DAILY Fexofenadine HCl [Mi Allergy] 180 mg PO DAILY Modafinil [Provigil] 300 mg PO DAILY Naproxen Sodium [Aleve] 220 mg PO DAILY PRN PRN Reason: Pain Discharge Medication List Aspirin 325 mg PO DAILY 10/28/13 [History] Celecoxib [CeleBREX] 200 mg PO DAILY 10/28/13 [History] Doxazosin [Cardura] 8 mg PO HS 10/28/13 [History] Multivitamins, Thera [Multivitamin (formulary)] 1 tab PO DAILY 10/28/13 [Histo ry] Fexofenadine HCl [Mi Allergy] 180 mg PO DAILY 10/11/14 [History] Modafinil [Provigil] 300 mg PO DAILY 10/11/14 [History] Naproxen Sodium [Aleve] 220 mg PO DAILY PRN 02/09/17 [History] Cefpodoxime Proxetil [Vantin] 200 mg PO Q12HR #15 tab 11/17/18 [Rx] Follow up Appointment(s)/Referral(s): Yan Gaona MD [Primary Care Provider] - 11/23/18 4:30 pm Chance Joy MD [Family Provider] - 11/24/18 10:00 am Patient Instructions/Handouts: Urinary Tract Infection in Men (DC) Activity/Diet/Wound Care/Special Instructions: regular diet activity as tolerated Self cath three times daily Discharge Disposition: HOME SELF-CARE
--- NOTE | 2018-11-19 09:42 | CDI ---
Documentation Clarification Form Date: 11/19/18 From: Vera Ortega Phone: If questions call Mirella James @ [phone], Hours-8:30 am & 5 pm MRobbie Smith Admit Date: 11/14/2018 8:18:00 PM Patient Name: Daniel Keene Visit Number: [id number] Discharge Date: 11/17/2018 12:52:00 PM ATTENTION: The Clinical Documentation Specialists (CDI) and [facility] Coding Staff appreciate your assistance in clarifying documentation. Please respond to the clarification below the line at the bottom and electronically sign. The CDI & [facility] Coding staff will review the response and follow-up if needed. Please note: Queries are made part of the Legal Health Record. If you have any questions, please contact the author of this message via ITS. Dr. Cortney Medrano UTI was documented in the ED note, H&P, consult and DS. History/Risk Factors: chronic urinary retention secondary to BPH requiring straight cath Clinical Indicators: resistant E. coli UTI Urine Culture: E. Coli Treatment: IV Rocephin Please document the cause of the UTI if known: UTI, not further specified If due to self caths Other, please specify Unable to determine MTDD
== END 2018-11-17 12:52 | disposition home or self-care (01) | DRG 698 ==
LOC: EC 13:53 → 4MS4W 20:18
PROVIDERS: ADMIT Family Medicine; ATTEND Family Medicine
DX: T83.598A Infection and inflammatory reaction due to other prosthetic device, implant and graft in urinary system, initial encounter (principal); A41.51 Sepsis due to Escherichia coli [E. coli]; N13.6 Pyonephrosis; Z68.42 Body mass index [BMI] 45.0-49.9, adult; N13.8 Other obstructive and reflux uropathy; E66.01 Morbid (severe) obesity due to excess calories; M19.90 Unspecified osteoarthritis, unspecified site; G47.33 Obstructive sleep apnea (adult) (pediatric); N40.1 Benign prostatic hyperplasia with lower urinary tract symptoms; R33.8 Other retention of urine; R32 Unspecified urinary incontinence; K21.9 Gastro-esophageal reflux disease without esophagitis; K59.00 Constipation, unspecified; I87.8 Other specified disorders of veins; Z79.82 Long term (current) use of aspirin; Z79.1 Long term (current) use of non-steroidal anti-inflammatories (NSAID); Z79.899 Other long term (current) drug therapy; Z87.440 Personal history of urinary (tract) infections; Z87.442 Personal history of urinary calculi; Z99.89 Dependence on other enabling machines and devices; Z86.14 Personal history of Methicillin resistant Staphylococcus aureus infection; Z96.653 Presence of artificial knee joint, bilateral; Z87.891 Personal history of nicotine dependence; Z96.1 Presence of intraocular lens; Z98.890 Other specified postprocedural states; Z98.41 Cataract extraction status, right eye; Z98.42 Cataract extraction status, left eye; Z82.49 Family history of ischemic heart disease and other diseases of the circulatory system
CPT/HCPCS: 36415; 71046; 74176; 80053; 81001; 82550; 83605; 83735; 84100; 84484; 85025; 85610; 85730; 87040; 87077; 87086; 87186; 93005; 96361; 96365; 96366; 99285

== ENCOUNTER → 2019-06-08 | Outpatient (CLI) | payer MEDICARE ==
--- NOTE | 2019-06-08 16:42 | CT ---
EXAMINATION TYPE: CT abdomen pelvis wo con DATE OF EXAM: 06/08/2019 COMPARISON: 11/14/2018 INDICATION: renal stones DLP: 2644.1 mGycm, Automated exposure control for dose reduction was used. CONTRAST: 0 mL of Isovue 300. Study performed without Oral Contrast TECHNIQUE: Axial images were obtained from above the diaphragm to the pubic rami in the axial plane a t 5 mm thick sections. Reconstructed images are reviewed on the computer in the coronal plane. FINDINGS: Limited CT sections are obtained the lung bases. The lung bases are clear. CT ABDOMEN: Liver: There may be a small cyst in the posterior lateral right lobe liver measuring 0.9 cm. Spleen: Normal Pancreas: Fatty infiltration. Adrenal glands: The adrenal glands are normal. Gallbladder: Normal Kidneys: No masses are evident. No hydronephrosis is present. No cysts are present. There is a 0.3 cm nonobstructing renal stone the mid left kidney. There is some malrotation of the left kidney. No hydroureter is evident. There is a 0.3 cm nonobstructing renal stone inferior pole left kidney Aorta: Vascular calcification is within the aorta. Inferior vena cava: Normal. CT PELVIS: Loops of bowel within the abdomen and pelvis are normal. There are multiple scattered diverticuli through the sigmoid colon. No acute diverticulitis is evident. Appendix: Normal as visualized. Urinary bladder: Slightly decompressed with limited evaluation. Genitourinary structures: Prostate is somewhat prominent. Osseous structures: No suspicious lytic or sclerotic lesions. IMPRESSIONS: 1. Nonobstructing bilateral 3 mm renal stones. 2. Malrotation of the left kidney. 3. Diverticulosis without acute diverticulitis.
== END | disposition home or self-care (01) ==
LOC: RADCTMAIN 15:45
PROVIDERS: ATTEND Urology
DX: N20.0 Calculus of kidney (principal); N28.89 Other specified disorders of kidney and ureter; K57.30 Diverticulosis of large intestine without perforation or abscess without bleeding
CPT/HCPCS: 74176

== ENCOUNTER → 2021-02-20 | Outpatient (CLI) | payer MEDICARE ==
--- NOTE | 2021-02-21 15:21 | ECHOF ---
Referral Reason:G47.33 Obstructive sleep apnea on CPAP MEASUREMENTS -------- HEIGHT: 160.0 cm WEIGHT: 136.1 kg BP: IVSd: 1.6 cm (0.6 - 1.1) LVIDd: 4.5 cm (3.9 - 5.3) LVPWd: 1.8 cm (0.6 - 1.1) EDV(Teich): 95 ml IVSs: 2.1 cm LVIDs: 3.3 cm LVPWs: 2.4 cm %IVS Thck: 32 % ESV(Teich): 45 ml EF(Teich): 53 % %FS: 27 % SV(Teich): 50 ml RVIDd: 2.2 cm (< 3.3) Ao Diam: 4.0 cm (2.0 - 3.7) LA Diam: 3.1 cm (2.7 - 3.8) AV Cusp: 2.2 cm (1.5 - 2.6) EPSS: 1.5 cm MV E Arie: 0.48 m/s MV DecT: 213 ms MV Dec Crook: 2.2 m/s MV A Arie: 0.73 m/s MV E/A Ratio: 0.65 MV PHT: 62 ms MR Vmax: 0.86 m/s MR maxP.97 mmHg AV Vmax: 1.03 m/s AV maxP.20 mmHg TR Vmax: 1.34 m/s TR maxP.14 mmHg RAP: 5.00 mmHg RVSP: 12.14 mmHg MV EF SLOPE: 65.82 mm/s (70 - 150) MV EXCURSION: 13.45 mm (> 18.000) FINDINGS -------- This was a technically difficult study with suboptimal views. The left ventricular size is normal. There is severe concentric left ventricular hypertrophy. Ove rall left ventricular systolic function is mildly impaired with, an EF between 45 - 50 %. Septal Hy pokinesis The right ventricle is normal in size. The left atrial size is normal. The right atrial size is normal. 5.0mg of Lumason was utilized for enhancement of images The aortic valve was not well visualized. The mitral valve is normal. There is trace mitral regurgitation. The tricuspid valve appears structurally normal. Trace tricuspid regurgitation present. Right marlene tricular systolic pressure is normal at < 35 mmHg. The pulmonic valve was not well visualized. The aortic root size is normal. IVC Not well visulized. There is no pericardial effusion. CONCLUSIONS -------- 1. The left ventricular size is normal. 2. There is severe concentric left ventricular hypertrophy. 3. Overall left ventricular systolic function is mildly impaired with, an EF between 45 - 50 %. 4. Septal Hypokinesis 5. There is trace mitral regurgitation. 6. Trace tricuspid regurgitation present. 7. There is no pericardial effusion. GERIATRIC SOCIAL WORKER: Debora Colon RDCS
== END | disposition home or self-care (01) ==
LOC: RADECHMAIN 13:58
PROVIDERS: ATTEND Internal Medicine
DX: I08.1 Rheumatic disorders of both mitral and tricuspid valves (principal)
CPT/HCPCS: C8929; Q9950; 93306

== ENCOUNTER 2021-03-23 14:42 | Emergency (ER) | payer MEDICARE ==
[2021-03-23 15:04] VITALS: BP 159/81; PULSE 71; RESP 16; TEMP 98.1
[2021-03-23] MEDS ORDERED: DIPH,PERTUS(ACELL)TETVAC-LF 0.5 ML VIAL IM ONE (16:06)
[2021-03-23] MEDS ORDERED: AMOXIC-POT CLAV 875-125MG 1 EACH TAB PO STA (16:06)
--- NOTE | 2021-03-23 16:08 | ED ---
Animal Bite HPI - General Chief Complaint: Animal Bite Stated Complaint: cat bite Time Seen by Provider: 03/23/21 15:54 Source: patient, RN notes reviewed Mode of arrival: ambulatory Limitations: no limitations - History of Present Illness Initial Comments: Patient is a 75-year-old male that presents to emergency room with a left dorsal forearm Bite. He notes he was sleeping last night was Bit his arm. He notes that the bites are shallow and bled moderately. He notes he does take aspirin daily. He denied any issues or complaints. He notes that he is not sure of his tetanus status. He was in no pain. He noted did not need seizures he just wanted come make sure he got antibiotics. He denied any chest pain shortness breath headache nausea vomiting diarrhea constipation fever fatigue chills. - Related Data Home Medications Medication Instructions Recorded Confirmed Aspirin 325 mg PO DAILY 10/28/13 11/14/18 Celecoxib [CeleBREX] 200 mg PO DAILY 10/28/13 11/14/18 Doxazosin [Cardura] 8 mg PO HS 10/28/13 11/14/18 Multivitamins, Thera [Multivitamin 1 tab PO DAILY 10/28/13 11/14/18 (formulary)] Fexofenadine HCl [Mi Allergy] 180 mg PO DAILY 10/11/14 11/14/18 modafiniL [Provigil] 300 mg PO DAILY 10/11/14 11/14/18 Naproxen Sodium [Aleve] 220 mg PO DAILY PRN 02/09/17 11/14/18 Previous Rx's Medication Instructions Recorded Cefpodoxime Proxetil [Vantin] 200 mg PO Q12HR #15 tab 11/17/18 Amoxicillin/Potassium Clav 1 tab PO Q12HR #20 tab 03/23/21 [Augmentin 875-125 Tablet] Allergies Allergy/AdvReac Type Severity Reaction Status Date / Time No Known Allergies Allergy Verified 03/23/21 15:04 Review of Systems ROS Statement: Those systems with pertinent positive or pertinent negative responses have been documented in the HPI. ROS Other: All systems not noted in ROS Statement are negative. Past Medical History Past Medical History: GERD/Reflux, Osteoarthritis (OA), Prostate Disorder, Skin Disorder, Sleep Apnea/CPAP/BIPAP Additional Past Medical History / Comment(s): PRE-CA SKIN LESIONS; BACK PAIN; HX RT RENAL CALCULUS, cellulitis of the lower legs with chronic venous stasis, morbid obesity, benign prostatic hypertrophy, obstructive sleep apnea no CPAP, gastroesophageal reflux disease, chronic back pain secondary to degenerative disc disease History of Any Multi-Drug Resistant Organisms: MRSA Date of last positivie culture/infection: 2014 MDRO Source:: finger Past Surgical History: Joint Replacement, Orthopedic Surgery Additional Past Surgical History / Comment(s): 06/30/18 CYSTOSCOPY REMOVAL OF BLADDER CALCULI AND W/ LT URETERAL STENT INSERTION,LT TOTAL KNEE; RT KNEE MAKOPLASTY; ABD LIPOMA REMOVED; RT RENAL CALCULUS LITHOTRIPSY, RT URETERAL STENT, TURP; bilateral cataract removal with lens implants Past Anesthesia/Blood Transfusion Reactions: No Reported Reaction Past Psychological History: No Psychological Hx Reported Smoking Status: Former smoker Past Alcohol Use History: None Reported Past Drug Use History: None Reported - Past Family History Father Family Medical History: Cancer Additional Family Medical History / Comment(s): Grandfather had heart attack, father at 67 General Exam Limitations: no limitations General appearance: alert, in no apparent distress, obese Head exam: Present: atraumatic, normocephalic, normal inspection Eye exam: Present: normal appearance, PERRL, EOMI. Absent: scleral icterus, conjunctival injection, periorbital swelling ENT exam: Present: normal exam, mucous membranes moist Neck exam: Present: normal inspection Respiratory exam: Present: normal lung sounds bilaterally. Absent: respiratory distress, wheezes, rales, rhonchi, stridor Cardiovascular Exam: Present: regular rate, normal rhythm, normal heart sounds. Absent: systolic murmur, diastolic murmur, rubs, gallop, clicks Extremities exam: Present: normal inspection, full ROM, normal capillary refill. Absent: tenderness, pedal edema, joint swelling, calf tenderness Neurological exam: Present: alert, oriented X3 Psychiatric exam: Present: normal affect, normal mood Skin exam: Present: warm, dry, intact, normal color, abrasion (3 small abrasions to the dorsal aspect of left forearm, nonbleeding, no signs or symptoms of infection.). Absent: rash Course Vital Signs 03/23/21 15:01 Temperature 98.1 F Pulse Rate 71 Respiratory 16 Rate Blood Pressure 159/81 O2 Sat by Pulse 96 Oximetry Medical Decision Making - Medical Decision Making 75-year-old male with a Bite left forearm. Tetanus vaccine, 1 tablet of Augmentin ordered. Are present was sent the patient pharmacy. Abrasions did not need any cleaning or sutures at this time. Case discussed with Dr. Tavera, patient can discharge home with follow-up to primary care. Disposition Clinical Impression: Cat bite Disposition: HOME SELF-CARE Condition: Stable Instructions (If sedation given, give patient instructions): Animal Bite (ED) Additional Instructions: Please return to the Emergency Department if symptoms worsen or any other concerns. Follow-up with primary care 1-2 days. Take antibiotics as prescribed until complete. Keep area clean and dry. Prescriptions: Amoxicillin/Potassium Clav [Augmentin 875-125 Tablet] 1 tab PO Q12HR #20 tab Is patient prescribed a controlled substance at d/c from ED?: No Referrals: Linda Melgar MD [Primary Care Provider] - 1-2 days Time of Disposition: 16:08
== END 2021-03-23 16:20 | disposition home or self-care (01) ==
LOC: EC 14:42
DX: S51.852A Open bite of left forearm, initial encounter (principal); K21.9 Gastro-esophageal reflux disease without esophagitis; N40.0 Benign prostatic hyperplasia without lower urinary tract symptoms; E66.9 Obesity, unspecified; Z68.43 Body mass index [BMI] 50.0-59.9, adult; Z87.891 Personal history of nicotine dependence; Z23 Encounter for immunization; Z79.1 Long term (current) use of non-steroidal anti-inflammatories (NSAID); Z79.82 Long term (current) use of aspirin; Z79.899 Other long term (current) drug therapy; W55.01XA Bitten by cat, initial encounter
CPT/HCPCS: 90471; 90715; 99283

== ENCOUNTER 2021-05-31 06:30 | Day surgery (SDC) | payer MEDICARE ==
[2021-05-29 09:07] VITALS: BMI 51.5
[~2021-05-31 06:30] MED LIST changes: +ALPRAZolam 0.25 MG TAB PO PRN; +ALPRAZolam 0.5 MG TAB PO PRN; -AMPICILLIN 2,000 MG in SODIUM CHLORIDE 0.9% 100 ML IVPB ONE; +ASPIRIN 325 MG TAB PO STA; -DEXAMETHASONE SOD PHOSPHATE 10 MG/ML 1 ML VIAL IV ONE; -GENTAMICIN 120 MG in SODIUM CHLORIDE 0.9% 100 ML IVPB ONE; +HEPARIN SODIUM,PORCINE 10,000 UNIT in SODIUM CHLORIDE 0.9% 1,000 ML IRRIGATION PRN; +HEPARIN SODIUM,PORCINE 2,500 UNIT in SODIUM CHLORIDE 0.9% 250 ML IRRIGATION PRN; -HYDROmorphone 0.5 MG/0.5 ML SYRINGE IVP PRN; -LACTATED RINGERS 1,000 ML IV SCH; -MIDAZOLAM 2 MG/2 ML VIAL IV PRN; +NITROGLYCERIN SL TABS 0.4 MG TAB SUBLINGUAL PRN; -ONDANSETRON 4 MG/2 ML VIAL IVP ONE; +SODIUM CHLORIDE 0.9% 1,000 ML in EMPTY BAG 1 BAG IV SCH
[2021-05-31] MEDS ORDERED: SODIUM CHLORIDE 0.9% 1,000 ML IV ONE (07:02)
[2021-05-31 07:11] VITALS: TEMP 97.4
[2021-05-31] MEDS ORDERED: VERAPAMIL 2.5 MG/ML 2 ML AMP ONE (07:12)
[2021-05-31] MEDS ORDERED: HEPARIN SODIUM 1,000 UN/ML (10ML VL) ONE (07:26)
[2021-05-31] MEDS ORDERED: fentaNYL (PF) 50 MCG/ML 5 ML AMP IV ONE (07:30)
[2021-05-31] MEDS ORDERED: LIDOCAINE 2% (PF) 20 MG/ML 5 ML VIAL SQ ONE (07:32)
[2021-05-31] MEDS ORDERED: MIDAZOLAM 2 MG/2 ML VIAL IV ONE (07:33)
[2021-05-31] MEDS ORDERED: VERAPAMIL SYRINGE (5 MG/10 ML) INTRAARTER ONE (07:35)
[2021-05-31] MEDS ORDERED: IOPAMIDOL-370 125ML BTL INJ ONE (07:45)
[2021-05-31] MEDS ORDERED: RX INFO: IV CONTRAST WAS GIVEN 1 EACH MISC MISCELLANE PRN (08:04)
[2021-05-31] MEDS ORDERED: SODIUM CHLORIDE 0.9% 1,000 ML IV SCH (08:15)
[2021-05-31] MEDS ORDERED: lisinopriL 5 MG TAB PO SCH (09:00)
--- NOTE | 2021-05-31 09:26 | CC ---
CARDIAC CATHETERIZATION REPORT Mr. Keene is a 75-year-old male with a history of progressive dyspnea and peripheral edema. He was found to have evidence of impairment of left ventricular systolic function on echocardiography and his stress test showed evidence of inferolateral wall defect. In view of that, recommendation was made regarding cardiac catheterization. The procedure as well as the risks and the complications were discussed with the patient who is in full understanding and agreement. 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 Using Xylocaine anesthesia, and Seldinger technique a 6-Gambian sheath was introduced in the right radial artery. Selective right and left coronary angiography performed using 5-Gambian 3.5 bend right and left Papito catheter. Multiple views of the coronary artery including hemiaxial views obtained. Subsequently, a 5-Gambian tight pigtail catheter was introduced into the left ventricle and a 30-degree POND view of the left ventricle was obtained. Following that, catheter and sheaths were removed. Hemostasis was obtained with deployment of a TR band. There was no immediate complication. Patient is returned to his room in stable condition. Of note, the patient received 5000 units of intravenous heparin as well as intra-arterial verapamil. FINDINGS: LEFT MAIN: This is a large-sized vessel bifurcating into left circumflex, left anterior descending artery, left main coronary artery has no evidence of high-grade stenosis. LEFT ANTERIOR DESCENDING ARTERY: This is a large-sized vessel reaching toward the apex with a wraparound apex segment giving rise to a moderately sized diagonal branch. The left anterior descending coronary artery as well as branches have no evidence of obstructive coronary artery disease. LEFT CIRCUMFLEX: This is a large nondominant vessel giving rise to 2 obtuse marginal branches. The second one is large in caliber and has a branching point. The left circumflex as well as branches have no evidence of obstructive coronary artery disease. RIGHT CORONARY ARTERY: This is a large dominant vessel, tortuous in mid segment. The right coronary artery as well as branches have no evidence of obstructive coronary artery disease. LEFT VENTRICULOGRAM: The ventriculogram was performed in 30-degree POND view and revealed mild to moderate global hypokinesis. The estimated ejection fraction 40 to 45%. There was 1+ mitral regurgitation. HEMODYNAMICS: There was no gradient across the aortic valve. The left ventricle end-diastolic pressure was 20-25 mmHg. CONCLUSION: 1. Normal coronary arteries. 2. Right dominance. 3. Elevated left ventricular end-diastolic pressure. 4. Moderately impaired left ventricular systolic function. RECOMMENDATIONS: In view of findings and anatomy, his findings are consistent with nonischemic cardiomyopathy. Based on that, I would recommend maximize his medical therapy and depending on his progress, further recommendations will be made. Those findings and recommendations were discussed with the patient and he is full understanding and agreement. Duration of sedation is 21 minutes. MMODL / IJN: [id number] /
--- NOTE | 2021-05-31 09:29 | LTR ---
DATE OF SERVICE: 05/31/[address] Melgar: I had the pleasure of performing cardiac catheterization on Mr. Keene at [facility] on May 31 and a fully copy of procedure note will be forwarded to you. In brief, he was found to have normal coronary arteries with evidence of nonischemic cardiomyopathy. Based on those findings, I recommend continued medical therapy and maximizing the treatment. Depending on his progress, further recommendations will be made. Thank you again for allowing me to participate in his care. Please feel free to call for any questions. Sincerely yours, ROSANNA / ARNOLDN: [id number] /
[2021-05-31 11:13] VITALS: BP 156/75; PULSE 70; RESP 18
[2021-05-31] MEDS ORDERED: DOXAZOSIN 4 MG TAB PO SCH (21:00)
== END 2021-05-31 12:48 | disposition home or self-care (01) ==
LOC: CATHCVL 06:30
PROVIDERS: ATTEND Internal Medicine Interventional Cardiology
DX: I77.1 Stricture of artery (principal); I51.7 Cardiomegaly; R94.39 Abnormal result of other cardiovascular function study; I34.0 Nonrheumatic mitral (valve) insufficiency; Z96.619 Presence of unspecified artificial shoulder joint; Z20.822 Contact with and (suspected) exposure to COVID-19; Z98.49 Cataract extraction status, unspecified eye; M19.90 Unspecified osteoarthritis, unspecified site; Z72.0 Tobacco use; G47.33 Obstructive sleep apnea (adult) (pediatric); E66.9 Obesity, unspecified; Z68.30 Body mass index [BMI] 30.0-30.9, adult; I10 Essential (primary) hypertension; Z79.82 Long term (current) use of aspirin; Z79.899 Other long term (current) drug therapy
CPT/HCPCS: 93458; 87635; C1894; C1769 ×2; J2250; J3010; J1644; Q9967; J2001

== ENCOUNTER 2021-10-20 14:06 | Emergency (ER) | payer MEDICARE ==
[2021-10-20 14:16] VITALS: TEMP 98.2
[2021-10-20] MEDS ORDERED: HYDROcodone/APAP 5-325MG 1 EACH TAB PO STA (14:35)
--- NOTE | 2021-10-20 15:23 | US ---
EXAMINATION TYPE: US venous doppler duplex LE DATE OF EXAM: 10/20/2021 2:36 PM COMPARISON: NONE CLINICAL HISTORY: pain. Left groin and knee pain, edema. SIDE PERFORMED: Bilateral TECHNIQUE: The lower extremity deep venous system is examined utilizing real time linear array sonog sohan with graded compression, doppler sonography and color-flow sonography. VESSELS IMAGED: Common Femoral Vein Deep Femoral Vein Greater Saphenous Vein * Femoral Vein Popliteal Vein Small Saphenous Vein * Proximal Calf Veins (* superficial vessels) The deep venous systems of both lower extremities are patent and compressible with augmentable flow a nd there is no evidence of DVT. Limited evaluation behind left knee due to patient unable to tolerate probe pressure. Good color flow is shown in popliteal vein. IMPRESSION: No lower extremity DVT.
--- NOTE | 2021-10-20 15:38 | XR ---
EXAMINATION TYPE: XR Hip LT and AP Pelvis DATE OF EXAM: 10/20/2021 COMPARISON: NONE HISTORY: Left leg swelling and pain TECHNIQUE: A single AP view of the pelvis is obtained. Two views of the left hip are obtained. FINDINGS: There is no acute fracture/dislocation evident in the pelvis. The hip and sacroiliac join ts appear symmetric and unremarkable. The overlying soft tissue appears unremarkable. Two views of left hip show no acute fracture or dislocation. No focal lytic or sclerotic lesion seen in the proximal left femur. The overlying soft tissue is unremarkable. There is mild left hip joint space narrowing indicating mild osteoarthritis. IMPRESSION: There is no acute fracture or dislocation in the pelvis or left hip. Mild osteoarthritis of the left hip.
[2021-10-20] MEDS ORDERED: ACET/COD 300 MG/30 MG STARTER PACK 6 TAB BTL PO STA (15:43)
--- NOTE | 2021-10-20 15:45 | ED ---
Extremity Problem HPI - General Chief complaint: Extremity Problem,Nontraumatic Stated complaint: Groin pain Time Seen by Provider: 10/20/21 14:20 Source: patient, family, RN notes reviewed, old records reviewed Mode of arrival: wheelchair Limitations: physical limitation - History of Present Illness Initial comments: This a 75-year-old male presents emergency Department chief complaint of leg swelling, pain. Patient states she's been dealing with chronic swelling but is worsened usual. Patient was scheduled to have bilateral lower extremity Doppler but states to schedule issues he did not make his appointment. Patient denies any chest pain or shortness of breath. Patient states he has his left groin pain which is worse with movement he states he feels like he pulled a muscle. He has no issues with his right leg with movement no paresthesias no back complaints. Denies Bowel, bladder incontinence or retention. Denies saddle anesthesia - Related Data Home Medications Medication Instructions Recorded Confirmed Aspirin 325 mg PO DAILY 10/28/13 05/31/21 Celecoxib [CeleBREX] 200 mg PO DAILY 10/28/13 05/31/21 Doxazosin [Cardura] 8 mg PO HS 10/28/13 05/31/21 Multivitamins, Thera [Multivitamin 1 tab PO DAILY 10/28/13 05/31/21 (formulary)] Fexofenadine HCl [Mi Allergy] 180 mg PO DAILY 10/11/14 05/31/21 modafiniL [Provigil] 300 mg PO DAILY 10/11/14 05/31/21 Cholecalciferol [Vitamin D3 (25 50 mcg PO DAILY 05/29/21 05/31/21 Mcg = 1000 Iu)] Numaqula 3 tab PO DAILY 05/29/21 05/31/21 Potassium Gluconate [Potassium 99 mg PO DAILY 05/29/21 05/31/21 Gluconate ER] Turmeric Root Extract [Turmeric] 500 mg PO DAILY 05/29/21 05/31/21 lisinopriL [Zestril] 5 mg PO DAILY 05/29/21 05/31/21 Previous Rx's Medication Instructions Recorded Cephalexin [Keflex] 500 mg PO Q6HR #40 cap 10/20/21 Allergies Allergy/AdvReac Type Severity Reaction Status Date / Time No Known Allergies Allergy Verified 10/20/21 14:16 Review of Systems ROS Statement: Those systems with pertinent positive or pertinent negative responses have been documented in the HPI. ROS Other: All systems not noted in ROS Statement are negative. Past Medical History Past Medical History: Eye Disorder, GERD/Reflux, Hypertension, Osteoarthritis (OA), Prostate Disorder, Renal Disease, Skin Disorder, Sleep Apnea/CPAP/BIPAP Additional Past Medical History / Comment(s): PRE-CA SKIN LESIONS; BACK PAIN; HX RT RENAL CALCULUS, cellulitis of the lower legs with chronic venous stasis,benign prostatic hypertrophy, obstructive sleep apnea no CPAP, chronic back pain secondary to degenerative disc disease,macular degeneration, circumcision has catheter bag History of Any Multi-Drug Resistant Organisms: MRSA Date of last positivie culture/infection: 2014 MDRO Source:: finger Past Surgical History: Joint Replacement, Orthopedic Surgery, Prostate Surgery Additional Past Surgical History / Comment(s): 06/30/18 CYSTOSCOPY REMOVAL OF BLADDER CALCULI AND W/ LT URETERAL STENT INSERTION,LT TOTAL KNEE; RT KNEE MAKOPLASTY; ABD LIPOMA REMOVED; RT RENAL CALCULUS LITHOTRIPSY, RT URETERAL STENT, TURP; bilateral cataract removal with lens implants,circumcision Past Anesthesia/Blood Transfusion Reactions: No Reported Reaction Past Psychological History: No Psychological Hx Reported Smoking Status: Former smoker Past Alcohol Use History: None Reported Past Drug Use History: None Reported - Past Family History Father Family Medical History: Cancer Additional Family Medical History / Comment(s): Grandfather had heart attack, father at 67 General Exam Limitations: physical limitation General appearance: alert, in no apparent distress Head exam: Present: atraumatic, normocephalic, normal inspection Neck exam: Present: normal inspection. Absent: tenderness, meningismus, lymphadenopathy Respiratory exam: Present: normal lung sounds bilaterally. Absent: respiratory distress, wheezes, rales, rhonchi, stridor Cardiovascular Exam: Present: regular rate, normal rhythm, normal heart sounds. Absent: systolic murmur, diastolic murmur, rubs, gallop, clicks Extremities exam: Present: other (There is mild to moderate amount of erythema left lower extremity there is swelling bilaterally left greater than right, pedal pulses equal bilaterally there is tenderness the left groin region with no pain or masses noted) Skin exam: Present: warm, dry, intact, normal color. Absent: rash Course Vital Signs 10/20/21 14:11 Temperature 98.2 F Pulse Rate 58 L Respiratory 18 Rate Blood Pressure 126/78 O2 Sat by Pulse 96 Oximetry Medical Decision Making - Medical Decision Making 75-year-old presented for leg pain. Ultrasound was negative for acute DVT. X- ray shows moderate osteoarthritis. Patient has lower extremity cellulitis we placed on antibiotics advised to elevate his legs. Patient may have groin strain given patient's presentation. Patient will follow-up with PCP return parameters were discussed. Disposition Clinical Impression: Lower extremity cellulitis, Left groin pain Disposition: HOME SELF-CARE Condition: Stable Instructions (If sedation given, give patient instructions): Groin Pain (ED), Groin Strain (ED), Cellulitis (ED) Additional Instructions: Please return to the Emergency Department if symptoms worsen or any other concerns. Prescriptions: Cephalexin [Keflex] 500 mg PO Q6HR #40 cap Is patient prescribed a controlled substance at d/c from ED?: No Referrals: Linda Melgar MD [Primary Care Provider] - 1-2 days Time of Disposition: 15:43
[2021-10-20 16:24] VITALS: BP 118/71; PULSE 68; RESP 20
== END 2021-10-20 16:24 | disposition home or self-care (01) ==
LOC: EC 14:06
DX: L03.116 Cellulitis of left lower limb (principal); R10.32 Left lower quadrant pain; I10 Essential (primary) hypertension; Z87.891 Personal history of nicotine dependence
CPT/HCPCS: 73502; 93970; 99284

== ENCOUNTER → 2021-12-10 | Outpatient (CLI) | payer MEDICARE ==
--- NOTE | 2021-12-10 22:19 | CT ---
EXAMINATION TYPE: CT lumbar spine wo con DATE OF EXAM: 12/10/2021 5:45 PM COMPARISON: CT dated 06/08/2019 HISTORY: spinal stenosis CT DLP: 3422.60 mGycm Automated exposure control for dose reduction was used. Technique: Unenhanced CT of the lumbar spine was performed. Bone and soft tissue window settings are submitted as well as coronal and sagittal reconstructions. FINDINGS: Artifactual images, likely caused by the patient's body habitus. Levoscoliosis of the lower lumbar sp ine. No significant anterolisthesis or retrolisthesis. No definite vertebral body collapse or acute d isplaced fracture. Marked degenerative changes at L3-4, L4-5 and L5-S1 with opposing endplate osteophytosis, markedly de generative discs and facet osteoarthropathy. Almost complete fusion of L4 and L5 vertebral bodies. L1-L2: No significant disc disease, central spinal canal stenosis or neuroforaminal stenosis. L2-L3: Degenerated disc with diffuse posterior disc bulge and focal left preforaminal and foraminal p rotrusion, associated with facet osteoarthropathy (more on the left side) and ligamentum flavum hyper trophy, causing moderate central spinal canal stenosis and mild bilateral neuroforaminal stenosis. L3-L4: Markedly degenerated disc with vacuum phenomenon, diffuse posterior disc bulge and posterior o steophytosis, associated with ligamentum flavum hypertrophy and severe facet osteoarthropathy, causin g moderate to severe central spinal canal stenosis, moderate left and severe right neuroforaminal jackelyn nosis. L4-L5: Completely degenerated disc with vertebral body fusion, associated with posterior osteophytosi s and severe bilateral facet osteoarthropathy, causing moderate central spinal canal stenosis and mil d bilateral neuroforaminal stenosis. L5-S1: Markedly degenerated disc with vacuum phenomenon, associated with severe bilateral facet osteo arthropathy (more on the left side) and posterior osteophytosis, causing no significant central spina l canal stenosis, and severe bilateral neural foramina stenosis compressing the corresponding L5 nerv e root. Right lower pole nonobstructing renal calculi measuring up to 5 mm. Suspected right parapelvic renal cyst. 7 mm nonobstructing right renal pelvis calculus. Fatty infiltration of the pancreas. Scattered uncomplicated colonic diverticulosis. Suspected 5.5 cm diverticulum arising from the left lateral wal l of the urinary bladder, please correlate clinically and with urine analysis results. No paraspinal lesion. Degenerative changes of the sacroiliac joints. 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 Further MRI assessment can be considered. Other incidental find ings and recommendations as described above.
== END | disposition home or self-care (01) ==
LOC: RADCTMAIN 17:14
PROVIDERS: ATTEND Anesthesiology
DX: M47.816 Spondylosis without myelopathy or radiculopathy, lumbar region (principal); M51.36 Other intervertebral disc degeneration, lumbar region; M48.061 Spinal stenosis, lumbar region without neurogenic claudication; M99.73 Connective tissue and disc stenosis of intervertebral foramina of lumbar region
CPT/HCPCS: 72131

== ENCOUNTER 2022-04-12 17:40 | Emergency (ER) | payer MEDICARE ==
[2022-04-12 18:00] VITALS: TEMP 97.7
--- NOTE | 2022-04-12 18:55 | ED ---
General Adult HPI - General Chief complaint: Extremity Injury, Lower Stated complaint: Fall, leg injury Time Seen by Provider: 04/12/22 18:55 Source: patient Mode of arrival: ambulatory Limitations: no limitations - History of Present Illness Initial comments: Patient presents to the ED alone for evaluation. Patient states that he drove himself here this evening. Patient states that he sustained a right lateral calf skin wound when he tripped and fell 9 days ago. Patient states that this wound has been draining fluid ever since then. Patient states that he was seen at an urgent care after his injury and states that he had his tetanus updated and was started on a course of doxycycline at that time. Patient states that he has 2 days left on the course of doxycycline that he was prescribed. Patient reports that he has chronic bilateral lower extremity edema. Patient states that he has come to the ED today because of the continued drainage. Patient denies any increased pain or redness. Patient denies fever or chills, headache, focal neuro deficit, chest pain or pressure, dyspnea, dizziness, abdominal pain, nausea or vomiting, decreased urine output, or any other symptoms or complaints. - Related Data Home Medications Medication Instructions Recorded Confirmed Aspirin 325 mg PO DAILY 10/28/13 05/31/21 Celecoxib [CeleBREX] 200 mg PO DAILY 10/28/13 05/31/21 Doxazosin [Cardura] 8 mg PO HS 10/28/13 05/31/21 Multivitamins, Thera [Multivitamin 1 tab PO DAILY 10/28/13 05/31/21 (formulary)] Fexofenadine HCl [Mi Allergy] 180 mg PO DAILY 10/11/14 05/31/21 modafiniL [Provigil] 300 mg PO DAILY 10/11/14 05/31/21 Cholecalciferol [Vitamin D3 (25 50 mcg PO DAILY 05/29/21 05/31/21 Mcg = 1000 Iu)] Numaqula 3 tab PO DAILY 05/29/21 05/31/21 Potassium Gluconate [Potassium 99 mg PO DAILY 05/29/21 05/31/21 Gluconate ER] Turmeric Root Extract [Turmeric] 500 mg PO DAILY 05/29/21 05/31/21 lisinopriL [Zestril] 5 mg PO DAILY 05/29/21 05/31/21 Previous Rx's Medication Instructions Recorded Cephalexin [Keflex] 500 mg PO Q6HR #40 cap 10/20/21 Sulfamethox-Tmp 800-160Mg [Bactrim 1 tab PO Q12HR 10 Days #20 tab 04/12/22 DS 800-160 mg] Allergies Allergy/AdvReac Type Severity Reaction Status Date / Time No Known Allergies Allergy Verified 04/12/22 18:00 Review of Systems ROS Statement: Those systems with pertinent positive or pertinent negative responses have been documented in the HPI. ROS Other: All systems not noted in ROS Statement are negative. Past Medical History Past Medical History: Eye Disorder, GERD/Reflux, Hypertension, Osteoarthritis (OA), Prostate Disorder, Renal Disease, Skin Disorder, Sleep Apnea/CPAP/BIPAP Additional Past Medical History / Comment(s): PRE-CA SKIN LESIONS; BACK PAIN; HX RT RENAL CALCULUS, cellulitis of the lower legs with chronic venous stasis,benign prostatic hypertrophy, obstructive sleep apnea no CPAP, chronic back pain secondary to degenerative disc disease,macular degeneration, circumcision has catheter bag History of Any Multi-Drug Resistant Organisms: MRSA Date of last positivie culture/infection: 2014 MDRO Source:: finger Past Surgical History: Joint Replacement, Orthopedic Surgery, Prostate Surgery Additional Past Surgical History / Comment(s): 06/30/18 CYSTOSCOPY REMOVAL OF BLADDER CALCULI AND W/ LT URETERAL STENT INSERTION,LT TOTAL KNEE; RT KNEE MAKOPLASTY; ABD LIPOMA REMOVED; RT RENAL CALCULUS LITHOTRIPSY, RT URETERAL STENT, TURP; bilateral cataract removal with lens implants,circumcision Past Anesthesia/Blood Transfusion Reactions: No Reported Reaction Past Psychological History: No Psychological Hx Reported Smoking Status: Former smoker Past Alcohol Use History: None Reported Past Drug Use History: None Reported - Past Family History Father Family Medical History: Cancer Additional Family Medical History / Comment(s): Grandfather had heart attack, father at 67 General Exam Limitations: no limitations General appearance: alert, in no apparent distress Head exam: Present: atraumatic, normocephalic Eye exam: Present: normal appearance ENT exam: Present: mucous membranes moist Respiratory exam: Present: normal lung sounds bilaterally. Absent: respiratory distress, wheezes, rales, rhonchi, stridor Cardiovascular Exam: Present: regular rate, normal rhythm, normal heart sounds, other (Normal radial pulses bilaterally) GI/Abdominal exam: Present: soft. Absent: tenderness, guarding Extremities exam: Present: other (A 3 x 3 cm right inferolateral superficial dermal wound is noted on examination with clear drainage noted (wound culture was obtained) and mild surrounding erythema/tenderness; no crepitation or fluctuance is appreciated; 2+ bilateral lower extremity pitting edema) Neurological exam: Present: alert, oriented X3. Absent: motor sensory deficit Psychiatric exam: Present: normal affect, normal mood Skin exam: Present: warm, dry Course Vital Signs 04/12/22 17:57 Temperature 97.7 F Pulse Rate 91 Respiratory 20 Rate Blood Pressure 153/87 O2 Sat by Pulse 96 Oximetry - Reevaluation(s) Reevaluation #1: 04/12/22 21:35 Patient denies development of any new symptoms while in the ED. I have answered all of the patient's questions, as well as his 's questions over the telephone. Patient is aware of his test results, and he feels comfortable being discharged home at this time. Patient's wound was cleaned and dressed by ED RN. Patient was counseled about lower extremity edema, wound care and lower extremity cellulitis. Patient was clearly explained return and follow-up instructions, and he was instructed to follow up closely with his primary care provider. Patient feels comfortable with this plan. Medical Decision Making - Medical Decision Making Patient is afebrile. I suspect that the majority of the patient's right lower extremity wound drainage is due to his significant lower extremity edema. Given there is some mild surrounding erythema, I suspect that he may have also developed some cellulitis. A wound culture was obtained. Will start the patient on a course of Bactrim in addition to the doxycycline that he is currently taking. Patient's right tib/fib x-rays are negative. Patient's wound was cleaned and dressed by ED RN with a bulky dressing, and he was provided with supplies for dressing changes at home. Patient was instructed to follow up closely with his primary care provider. Patient feels comfortable with this plan. - Radiology Data Right tib/fib x-rays: Soft tissue ossification. No fracture seen. Subcutaneous edema. Disposition Clinical Impression: Leg wound, right, Cellulitis of right leg, Bilateral lower extremity edema Disposition: HOME SELF-CARE Condition: Stable Instructions (If sedation given, give patient instructions): Cellulitis (ED), Acute Wound Care (ED), Leg Edema (ED) Additional Instructions: Return to the ER immediately should you develop new or worsening pain, increased redness, a fever, feeling dizzy or faint, shortness of breath, or new or worsening symptoms. Follow up closely with your primary care provider. Prescriptions: Sulfamethox-Tmp 800-160Mg [Bactrim DS 800-160 mg] 1 tab PO Q12HR 10 Days #20 tab Is patient prescribed a controlled substance at d/c from ED?: No Referrals: Heber Martinez MD [Primary Care Provider] - 1-2 days Time of Disposition: 21:47
[2022-04-12] MEDS ORDERED: SULFAMETHOX-TMP 800-160MG 1 EACH TAB PO STA (19:06)
--- NOTE | 2022-04-12 19:33 | XR ---
EXAMINATION TYPE: XR tibia fibula RT DATE OF EXAM: 04/12/2022 COMPARISON: NONE HISTORY: Pain TECHNIQUE: 3 views FINDINGS: There is soft tissue subcutaneous edema around the lower leg. There is linear calcification in the soft tissues over the lateral mid fibula. There is a prosthesis in the medial compartment of the knee. Ankle joint is intact. There is no fracture nor dislocation. There is plantar calcaneal spu rring. IMPRESSION: Soft tissue ossification. No fracture seen. Subcutaneous edema.
[2022-04-12 22:15] VITALS: BP 145/75; PULSE 68; RESP 18
== END 2022-04-12 22:33 | disposition home or self-care (01) ==
LOC: EC 17:40
DX: S81.801A Unspecified open wound, right lower leg, initial encounter (principal); L03.115 Cellulitis of right lower limb; R22.43 Localized swelling, mass and lump, lower limb, bilateral; K21.9 Gastro-esophageal reflux disease without esophagitis; I10 Essential (primary) hypertension; M19.90 Unspecified osteoarthritis, unspecified site; G47.30 Sleep apnea, unspecified; Z79.82 Long term (current) use of aspirin; Z87.891 Personal history of nicotine dependence; Z79.1 Long term (current) use of non-steroidal anti-inflammatories (NSAID); Z79.83 Long term (current) use of bisphosphonates; W01.0XXA Fall on same level from slipping, tripping and stumbling without subsequent striking against object, initial encounter
CPT/HCPCS: 87070; 87205; 99284

== ENCOUNTER → 2023-02-12 | Outpatient (CLI) | payer MEDICARE ==
--- NOTE | 2023-02-12 16:34 | P.PN ---
Subjective DATE: 02/12/2023 FOLLOW UP VISIT. Patient returned to sleep center for follow-up visit. I so patient in January 2022 and replant to proceed with the polysomnogram, but for different reasons sleep study was not done. Patient continued to have multiple awakenings from sleep with snoring. Patient is on treatment with the modafinil 300 mg in the morning for narcolepsy diagnosed in 2006 by results of multiple sleep latency test. Mean sleep latency around 2 minutes. MEDICATIONS:1. Aspirin 2. Doxazosin 8 mg once a day 3. Modafinil 300 mg in the morning 4. Losartan 25 mg once a day 5. Spironolactone 25 mg once a day During physical exam: GENERAL: A pleasant patient without any distress. VITAL SIGNS: BP 121/76, HR 75, RR 18 , weight 306.2, temperature 97.0, oxygen saturation at room air 95% . HEENT: PERRLA, EOMI. NECK: Supple. No JVD. LUNGS: Clear to percussion and to auscultation. Good air exchange. No wheezing or rhonchi. HEART: S1, S2 regular. ABDOMEN: Soft and nontender. EXTREMITIES: No clubbing or cyanosis. MACHINE BENDER: Awake, alert, and oriented x3. No focal deficit. Impressions: 1. Snoring, multiple awakenings from sleep, extremely low position of soft palate Mallampati 4, wide neck. Obstructive sleep apnea-hypopnea syndrome. 2. Narcolepsy confirmed by multiple sleep latency test. Mean sleep latency 2 minutes.. 3. Obesity, body mass index 55. 4. Hypertension. 5. History of restless leg symptoms. 6. Status post left knee replacement. 7. Status post kidney stones removed. Plan: 1. Patient will continue treatment with modafinil 300 mg in the morning. 2. Sleep hygiene with regular time in bed for at least 8 hours. 3. Daytime naps permitted 4. Precautions related to driving. No driving if feel any sleepiness. Patient is aware about civil and criminal liability for unsafe driving, promised to follow recommendations. 5. Polysomnogram for evaluation of patient breathing during the sleep. Thank you very much for allowing me to participate in the management of your patient. Dilip Pandya MD, PhD, FAASM. Diplomat of [employer], Sleep Medicine Board by [employer] Rehab Office Coordinator of [facility]
== END ==
LOC: 3 N SLEEP 15:19
PROVIDERS: ATTEND Internal Medicine
DX: G47.33 Obstructive sleep apnea (adult) (pediatric) (principal); E66.9 Obesity, unspecified; I10 Essential (primary) hypertension; G25.81 Restless legs syndrome; G47.419 Narcolepsy without cataplexy; Z98.890 Other specified postprocedural states; Z68.43 Body mass index [BMI] 50.0-59.9, adult; Z79.899 Other long term (current) drug therapy; Z87.442 Personal history of urinary calculi; Z87.891 Personal history of nicotine dependence
CPT/HCPCS: 99212

== ENCOUNTER 2023-03-18 21:45 | Emergency (ER) | payer MEDICARE ==
[2023-03-18 22:27] VITALS: TEMP 98
[2023-03-19 01:22] LABS: Appearance,Urine Cloudy (Clear); Basophils % (A) 0 %; Color,Urine Brown; Eosinophils # (A) 0.2 k/uL (0-0.7); Eosinophils % (A) 3 %; HCT 38.8 % (39.0-53.0); HGB 13.3 gm/dL (13.0-17.5); Lymphocytes # (A) 1.4 k/uL (1.0-4.8); Lymphocytes % (A) 18 %; MCH 34.1 pg (25.0-35.0); MCHC 34.2 g/dL (31.0-37.0); MCV 99.7 fL (80.0-100.0); Mean Platelet Volume 7.9; Monocytes # (A) 0.4 k/uL (0-1.0); Monocytes % (A) 5 %; Neutrophils # (A) 5.9 k/uL (1.3-7.7); Neutrophils % (A) 72 %; Platelet Count 230 k/uL (150-450); RBC 3.89 m/uL (4.30-5.90); RDW 13.5 % (11.5-15.5); WBC 8.1 k/uL (3.8-10.6)
[2023-03-19 01:32] LABS: RBC,Urine >182 /hpf (0-5); WBC,Urine >182 /hpf (0-5)
[2023-03-19 01:34] LABS: Bacteria,Urine Many /hpf
[2023-03-19 01:35] LABS: ALT 20 U/L (4-49); African American GFR (CKD) >90 (>60 ml/min/1.73 sqM); Anion Gap 5 mmol/L; Blood Urea Nitrogen 19 mg/dL (9-20); Calcium 9.2 mg/dL (8.4-10.2); Carbon Dioxide 26 mmol/L (22-30); Chloride 104 mmol/L (98-107); Glucose 106 mg/dL (74-99); Non-African American GFR(CKD) >90 (>60 ml/min/1.73 sqM); Sodium 135 mmol/L (137-145); Total Bilirubin 0.6 mg/dL (0.2-1.3); Total Protein 6.8 g/dL (6.3-8.2)
[2023-03-19 01:57] LABS: AST 37 U/L (17-59); Alkaline Phosphatase 82 U/L (38-126); Potassium 4.9 mmol/L (3.5-5.1)
[2023-03-19 02:43] LABS: Partial Thromboplastin Time 25.3 sec (22.0-30.0); Prothrombin Time 10.6 sec (9.0-12.0)
[2023-03-19] MEDS ORDERED: LEVOFLOXACIN 750 MG TAB PO STA (03:20)
--- NOTE | 2023-03-19 04:09 | ED ---
Male Urogenital HPI - General Chief complaint: Urogenital Stated complaint: Hematuria Time Seen by Provider: 03/19/23 00:42 Source: patient, family Mode of arrival: ambulatory Limitations: no limitations - History of Present Illness Initial comments: This patient is 77-year-old man here to have evaluation of hematuria. The patient has been requiring intermittent straight catheterization going back for years. This is usually performed at home by his daughter. They state that there has been blood for the past 2 times. Patient has not noted fever or chills. No back or abdominal pain. MD Complaint: dysuria, other (Hematuria) -: hour(s) Severity scale (1-10): 0 Consistency: constant Improves with: none Worsens with: none Reports: denies other symptoms - Related Data Home Medications Medication Instructions Recorded Confirmed Aspirin 325 mg PO DAILY 10/28/13 05/31/21 Celecoxib [CeleBREX] 200 mg PO DAILY 10/28/13 05/31/21 Doxazosin [Cardura] 8 mg PO HS 10/28/13 05/31/21 Multivitamins, Thera [Multivitamin 1 tab PO DAILY 10/28/13 05/31/21 (formulary)] Fexofenadine HCl [Mi Allergy] 180 mg PO DAILY 10/11/14 05/31/21 modafiniL [Provigil] 300 mg PO DAILY 10/11/14 05/31/21 Cholecalciferol [Vitamin D3 (25 50 mcg PO DAILY 05/29/21 05/31/21 Mcg = 1000 Iu)] Numaqula 3 tab PO DAILY 05/29/21 05/31/21 Potassium Gluconate [Potassium 99 mg PO DAILY 05/29/21 05/31/21 Gluconate ER] Turmeric Root Extract [Turmeric] 500 mg PO DAILY 05/29/21 05/31/21 lisinopriL [Zestril] 5 mg PO DAILY 05/29/21 05/31/21 Previous Rx's Medication Instructions Recorded Cephalexin [Keflex] 500 mg PO Q6HR #40 cap 10/20/21 Sulfamethox-Tmp 800-160Mg [Bactrim 1 tab PO Q12HR 10 Days #20 tab 04/12/22 DS 800-160 mg] Ciprofloxacin HCl [Cipro] 500 mg PO Q12HR 1 Days #14 tab 03/19/23 Allergies Allergy/AdvReac Type Severity Reaction Status Date / Time No Known Allergies Allergy Verified 04/12/22 18:00 Review of Systems ROS Statement: Those systems with pertinent positive or pertinent negative responses have been documented in the HPI. ROS Other: All systems not noted in ROS Statement are negative. Constitutional: Denies: fever, chills Respiratory: Denies: cough, dyspnea Cardiovascular: Denies: chest pain, palpitations, edema Gastrointestinal: Denies: abdominal pain, vomiting, diarrhea Genitourinary: Reports: hematuria. Denies: testicular pain, testicular mass Musculoskeletal: Denies: back pain Skin: Denies: rash Neurological: Denies: headache, weakness Past Medical History Past Medical History: Eye Disorder, GERD/Reflux, Hypertension, Osteoarthritis (O A), Prostate Disorder, Renal Disease, Skin Disorder, Sleep Apnea/CPAP/BIPAP Additional Past Medical History / Comment(s): PRE-CA SKIN LESIONS; BACK PAIN; HX RT RENAL CALCULUS, cellulitis of the lower legs with chronic venous stasis,benign prostatic hypertrophy, obstructive sleep apnea no CPAP, chronic back pain secondary to degenerative disc disease,macular degeneration, circumcision has catheter bag History of Any Multi-Drug Resistant Organisms: MRSA Date of last positivie culture/infection: 2014 MDRO Source:: finger Past Surgical History: Joint Replacement, Orthopedic Surgery, Prostate Surgery Additional Past Surgical History / Comment(s): 06/30/18 CYSTOSCOPY REMOVAL OF BLADDER CALCULI AND W/ LT URETERAL STENT INSERTION,LT TOTAL KNEE; RT KNEE MAKOPLASTY; ABD LIPOMA REMOVED; RT RENAL CALCULUS LITHOTRIPSY, RT URETERAL STENT, TURP; bilateral cataract removal with lens implants,circumcision Past Anesthesia/Blood Transfusion Reactions: No Reported Reaction Past Psychological History: No Psychological Hx Reported Smoking Status: Former smoker Past Alcohol Use History: None Reported Past Drug Use History: None Reported - Past Family History Father Family Medical History: Cancer Additional Family Medical History / Comment(s): Grandfather had heart attack, father at 67 General Exam Limitations: no limitations General appearance: alert, in no apparent distress Head exam: Present: atraumatic, normocephalic Eye exam: Present: normal appearance. Absent: scleral icterus, conjunctival injection Respiratory exam: Present: normal lung sounds bilaterally. Absent: respiratory distress, wheezes, rales, rhonchi, stridor Cardiovascular Exam: Present: regular rate, normal rhythm, normal heart sounds. Absent: systolic murmur, diastolic murmur, rubs, gallop GI/Abdominal exam: Present: soft. Absent: distended, tenderness, guarding, re bound, rigid, mass Extremities exam: Present: normal inspection, normal capillary refill. Absent: pedal edema, calf tenderness Back exam: Present: normal inspection. Absent: CVA tenderness (R), CVA tenderness (L) Neurological exam: Present: alert Skin exam: Present: warm, dry, intact, normal color. Absent: rash Course Vital Signs 03/18/23 03/19/23 03/19/23 22:19 00:36 01:00 Temperature 98 F Pulse Rate 83 88 88 Respiratory 20 18 18 Rate Blood Pressure 129/75 124/65 124/65 O2 Sat by Pulse 95 Oximetry 03/19/23 03/19/23 03/19/23 02:00 03:00 04:00 Temperature Pulse Rate 82 78 84 Respiratory 18 18 18 Rate Blood Pressure 115/61 127/62 126/71 O2 Sat by Pulse Oximetry Medical Decision Making - Medical Decision Making Was pt. sent in by a medical professional or institution (, PA, EARTH SCIENCE TECHNICIAN, urgent care, hospital, or halfway...) When possible be specific @ -[No] Did you speak to anyone other than the patient for history (EMS, parent, family, police, friend...)? What history was obtained from this source @ -[The patient's daughter did give some history Did you review nursing and triage notes (agree or disagree)? Why? @ -[I reviewed and agree with nursing and triage notes] Were old charts reviewed (outside hosp., previous admission, EMS record, old EKG, old radiological studies, urgent care reports/EKG's, halfway records)? Report findings @ -[No old charts were reviewed] Differential Diagnosis (chest pain, altered mental status, abdominal pain women, abdominal pain men, vaginal bleeding, weakness, fever, dyspnea, syncope, headache, dizziness, GI bleed, back pain, seizure, CVA, palpatations, mental health, musculoskeletal)? @ -[Differential Abdominal Pain Men: Appendicitis, cholecystitis, diverticulosis, ischemic bowel, pancreatitis, hepatitis, UTI, gastroenteritis, AAA, incarcerated hernia, bowel obstruction, constipation, inflammatory bowel, hepatitis, peptic ulcer disease, splenic infarction, perforated viscus, testicular torsion, this is not meant to be an all-inclusive list EKG interpreted by me (3pts min.). @ - X-rays interpreted by me (1pt min.). @ -[None done] CT interpreted by me (1pt min.). @ -[None done] U/S interpreted by me (1pt. min.). @ -[None done] What testing was considered but not performed or refused? (CT, X-rays, U/S, labs)? Why? @ -[None] What meds were considered but not given or refused? Why? @ -[None] Did you discuss the management of the patient with other professionals (professionals i.e. , PA, EARTH SCIENCE TECHNICIAN, lab, RT, psych nurse, medical social worker, speaker mounter, teacher, real estate officer, counter caser)? Give summary @ -[No] Was smoking cessation discussed for >3mins.? @ -[No] Was critical care preformed (if so, how long)? @ -[No] Were there social determinants of health that impacted care today? How? (Homelessness, low income, unemployed, alcoholism, drug addiction, transportation, low edu. Level, literacy, decrease access to med. care, fci, rehab)? @ -[No] Was there de-escalation of care discussed even if they declined (Discuss DNR or withdrawal of care, Hospice)? DNR status @ -[No] What co-morbidities impacted this encounter? (DM, HTN, Smoking, COPD, CAD, Cancer, CVA, ARF, Chemo, Hep., AIDS, mental health diagnosis, sleep apnea, morbid obesity)? @ -[None] Was patient admitted / discharged? Hospital course, mention meds given and route, prescriptions, significant lab abnormalities, going to OR and other pertinent info. @ -[Patient 77-year-old man presenting with new onset of hematuria. Specimen is sent for lab analysis and urine culture. The patient appears to have urinary tract infection and started on antibiotics here. We discussed appropriate further care and follow-up as well as seeing urology to ensure that the blood completely clears from the urine, to make sure there is no evidence of malignancy. Patient otherwise feeling well and would like to go home. We dis cussed further treatment as well as return parameters Undiagnosed new problem with uncertain prognosis? @ -[No] Drug Therapy requiring intensive monitoring for toxicity (Heparin, Nitro, Insulin, Cardizem)? @ -[No] Were any procedures done? @ -[No] Diagnosis/symptom? @ -[Acute hematuria Acute urinary tract infection Acute, or Chronic, or Acute on Chronic? @ -[Acute Uncomplicated (without systemic symptoms) or Complicated (systemic symptoms)? @ -Uncomplicated Side effects of treatment? @ -[No] Exacerbation, Progression, or Severe Exacerbation? @ -[No] Poses a threat to life or bodily function? How? (Chest pain, USA, SC, pneumonia, PE, COPD, DKA, ARF, appy, cholecystitis, CVA, Diverticulitis, Homicidal, Suicidal, threat to staff... and all critical care pts) @ -[No] - Lab Data Result diagrams: 03/19/23 01:09 03/19/23 01:09 Lab Results 03/19/23 03/19/23 03/19/23 Range/Units 01:09 01:09 01:09 WBC 8.1 (3.8-10.6) k/uL RBC 3.89 L (4.30-5.90) m/uL Hgb 13.3 (13.0-17.5) gm/dL Hct 38.8 L (39.0-53.0) % MCV 99.7 (80.0-100.0) fL MCH 34.1 (25.0-35.0) pg MCHC 34.2 (31.0-37.0) g/dL RDW 13.5 (11.5-15.5) % Plt Count 230 (150-450) k/uL MPV 7.9 Neutrophils % 72 % Lymphocytes % 18 % Monocytes % 5 % Eosinophils % 3 % Basophils % 0 % Neutrophils # 5.9 (1.3-7.7) k/uL Lymphocytes # 1.4 (1.0-4.8) k/uL Monocytes # 0.4 (0-1.0) k/uL Eosinophils # 0.2 (0-0.7) k/uL Basophils # 0.0 (0-0.2) k/uL PT (9.0-12.0) sec INR (<1.2) APTT (22.0-30.0) sec Sodium 135 L (137-145) mmol/L Potassium 4.9 (3.5-5.1) mmol/L Chloride 104 (98-107) mmol/L Carbon Dioxide 26 (22-30) mmol/L Anion Gap 5 mmol/L BUN 19 (9-20) mg/dL Creatinine 0.60 L (0.66-1.25) mg/dL Est GFR (CKD-EPI)AfAm >90 (>60 ml/min/1.73 sqM) Est GFR (CKD-EPI)NonAf >90 (>60 ml/min/1.73 sqM) Glucose 106 H (74-99) mg/dL Calcium 9.2 (8.4-10.2) mg/dL Total Bilirubin 0.6 (0.2-1.3) mg/dL AST 37 (17-59) U/L ALT 20 (4-49) U/L Alkaline Phosphatase 82 (38-126) U/L Total Protein 6.8 (6.3-8.2) g/dL Albumin 4.0 (3.5-5.0) g/dL Urine Color Brown Urine Appearance Cloudy (Clear) Urine RBC >182 H (0-5) /hpf Urine WBC >182 H (0-5) /hpf Urine WBC Clumps Moderate H (None) /hpf Urine Bacteria Many H (None) /hpf 03/19/23 Range/Units 01:55 WBC (3.8-10.6) k/uL RBC (4.30-5.90) m/uL Hgb (13.0-17.5) gm/dL Hct (39.0-53.0) % MCV (80.0-100.0) fL MCH (25.0-35.0) pg MCHC (31.0-37.0) g/dL RDW (11.5-15.5) % Plt Count (150-450) k/uL MPV Neutrophils % % Lymphocytes % % Monocytes % % Eosinophils % % Basophils % % Neutrophils # (1.3-7.7) k/uL Lymphocytes # (1.0-4.8) k/uL Monocytes # (0-1.0) k/uL Eosinophils # (0-0.7) k/uL Basophils # (0-0.2) k/uL PT 10.6 (9.0-12.0) sec INR 1.0 (<1.2) APTT 25.3 (22.0-30.0) sec Sodium (137-145) mmol/L Potassium (3.5-5.1) mmol/L Chloride (98-107) mmol/L Carbon Dioxide (22-30) mmol/L Anion Gap mmol/L BUN (9-20) mg/dL Creatinine (0.66-1.25) mg/dL Est GFR (CKD-EPI)AfAm (>60 ml/min/1.73 sqM) Est GFR (CKD-EPI)NonAf (>60 ml/min/1.73 sqM) Glucose (74-99) mg/dL Calcium (8.4-10.2) mg/dL Total Bilirubin (0.2-1.3) mg/dL AST (17-59) U/L ALT (4-49) U/L Alkaline Phosphatase (38-126) U/L Total Protein (6.3-8.2) g/dL Albumin (3.5-5.0) g/dL Urine Color Urine Appearance (Clear) Urine RBC (0-5) /hpf Urine WBC (0-5) /hpf Urine WBC Clumps (None) /hpf Urine Bacteria (None) /hpf Disposition Clinical Impression: Urinary tract infection Disposition: HOME SELF-CARE Condition: Fair Instructions (If sedation given, give patient instructions): Urinary Tract Infection in Men (ED) Prescriptions: Ciprofloxacin HCl [Cipro] 500 mg PO Q12HR 1 Days #14 tab Is patient prescribed a controlled substance at d/c from ED?: No Referrals: Heber Martinez MD [Primary Care Provider] - 1-2 days Lenard Lopez MD [STAFF PHYSICIAN] - 1-2 days
[2023-03-19 05:04] VITALS: BP 126/71; PULSE 84; RESP 18
== END 2023-03-19 04:57 | disposition home or self-care (01) ==
LOC: EC 21:45
DX: N39.0 Urinary tract infection, site not specified (principal); I10 Essential (primary) hypertension; M19.90 Unspecified osteoarthritis, unspecified site; Z87.891 Personal history of nicotine dependence; Z79.82 Long term (current) use of aspirin; Z79.899 Other long term (current) drug therapy
CPT/HCPCS: 36415; 80053; 81001; 85025; 85610; 85730; 99283

== ENCOUNTER 2023-04-15 10:43 | Emergency (ER) | payer MEDICARE ==
[2023-04-15 11:22] LABS: Glucose,Whole Blood 109 mg/dL (70-110)
[2023-04-15 12:47] LABS: ALT 19 U/L (4-49); African American GFR (CKD) >90 (>60 ml/min/1.73 sqM); Albumin 3.7 g/dL (3.5-5.0); Anion Gap 9 mmol/L; Blood Urea Nitrogen 17 mg/dL (9-20); Calcium 8.6 mg/dL (8.4-10.2); Carbon Dioxide 22 mmol/L (22-30); Chloride 104 mmol/L (98-107); Creatine Kinase 73 U/L (55-170); Glucose 106 mg/dL (74-99); Non-African American GFR(CKD) >90 (>60 ml/min/1.73 sqM); Sodium 135 mmol/L (137-145); Total Bilirubin 0.6 mg/dL (0.2-1.3); Total Protein 6.2 g/dL (6.3-8.2)
[2023-04-15 12:48] LABS: Potassium 5.2 mmol/L (3.5-5.1)
--- NOTE | 2023-04-15 12:48 | XR ---
EXAMINATION TYPE: XR chest 2V DATE OF EXAM: 04/15/2023 COMPARISON: 11/14/2018 HISTORY: Shortness of breath TECHNIQUE: Frontal and lateral views of the chest are obtained. FINDINGS: Scattered senescent parenchymal changes noted. Hyperinflation compatible with COPD. No evidence for infiltrate. No evidence for atelectasis. Heart size is stable. Mediastinal structures are stable and grossly unremarkable. No evidence for hilar prominence. Degenerative changes dorsal spine. IMPRESSION: 1. No evidence for acute pulmonary disease.
[2023-04-15 12:49] LABS: AST 45 U/L (17-59); Alkaline Phosphatase 58 U/L (38-126)
[2023-04-15 13:26] LABS: Basophils % (A) 0 %; Eosinophils # (A) 0.3 k/uL (0-0.7); Eosinophils % (A) 5 %; HCT 40.4 % (39.0-53.0); HGB 12.9 gm/dL (13.0-17.5); Lymphocytes % (A) 18 %; MCH 32.6 pg (25.0-35.0); MCHC 31.8 g/dL (31.0-37.0); MCV 102.3 fL (80.0-100.0); Macrocytosis Slight; Mean Platelet Volume 7.9; Monocytes # (A) 0.3 k/uL (0-1.0); Monocytes % (A) 5 %; Neutrophils % (A) 70 %; Platelet Count 140 k/uL (150-450); RBC 3.95 m/uL (4.30-5.90); RDW 13.6 % (11.5-15.5); WBC 5.7 k/uL (3.8-10.6)
[2023-04-15 13:36] LABS: Appearance,Urine Cloudy (Clear); Bilirubin,Urine Negative (Negative); Blood,Urine Large (Negative); Color,Urine Red; Glucose,Urine (UA) Negative (Negative); Ketones,Urine Negative (Negative); PH, Urine 6.5 (5.0-8.0); Protein,Urine 1+ (Negative); Specific Gravity,Urine 1.025 (1.001-1.035)
[2023-04-15 13:37] LABS: Leukocyte Esterase,Urine Small (Negative); Nitrite,Urine Negative (Negative); Urobilinogen,Urine <2.0 mg/dL (<2.0)
[2023-04-15 13:45] LABS: Mucus,Urine Many /hpf; RBC,Urine >182 /hpf (0-5); Squamous Epithelial Cell,Urine 4 /hpf (0-4); WBC,Urine 9 /hpf (0-5)
[2023-04-15 14:08] LABS: Prothrombin Time 10.9 sec (10.0-12.5)
[2023-04-15 14:20] LABS: Partial Thromboplastin Time 19.8 sec (22.0-30.0)
--- NOTE | 2023-04-15 14:24 | CT ---
EXAMINATION TYPE: CT brain wo con DATE OF EXAM: 04/15/2023 COMPARISON: 06/25/2018 HISTORY: Neuro deficit, actute stroke suspected CT DLP: 1915.[address] of the brain was performed. The ventricles, basal cisterns and sulci overlying the cerebral convexities demonstrate mild to moder ate enlargement. There is no evidence for intracranial hemorrhage or sulcal effacement. There is decreased attenuation about the periventricular white matter and deep white matter of both c erebral hemispheres, compatible with chronic small vessel ischemia. Differential diagnosis does inclu de demyelination. No mass effects are seen.No midline shift. Osseous calvarium is intact. If symptoms persist consider MRI. IMPRESSION: 1. Age related atrophic and chronic small vessel ischemic change without acute intracranial process s een at this time.
--- NOTE | 2023-04-15 14:29 | CT ---
EXAMINATION TYPE: CT angio head neck DATE OF EXAM: 04/15/2023 COMPARISON: None HISTORY: Neuro deficit, acute stroke suspected CT DLP: 1915.6 mGycm CONTRAST: Performed without and with IV Contrast, patient injected with 65 ml mL of Isovue 370. Combination Contrast CTA cervical carotids and [place] CTA cervical carotids with 3-D recons truction Contrast CTA of the cervical carotids was performed 3-D reconstruction imaging obtained at a separate workstation. Right carotid system: Mild plaque is seen of the right common carotid artery. There is mild plaque a lso noted at the carotid bulb and proximal ICA. No significant diameter reduction. ECA is patent. Right vertebral artery appears unremarkable. Left carotid system: Mild plaque is seen of the left common carotid artery. There is mild plaque als o noted at the carotid bulb and proximal ICA. No significant diameter reduction. ECA is patent. Lef t vertebral artery appears unremarkable. IMPRESSION: 1. No significant diameter reduction to account for the patient's symptoms. CTA [place] with 3-D reconstruction Contrast CTA of the [place] was performed 3-D reconstruction imaging obtained at a separate workstation. Vertebrobasilar system as well as intracranial portions of the internal carotid arteries and their ma jono tributaries are patent. I do not see evidence for sizable aneurysm or vascular malformation. Pl ease note MRI provides greater sensitivity and specificity. Visualized brain appears grossly unremar kable. IMPRESSION: 1. No significant abnormality. NASCET criteria was used in interpretation of this exam?
--- NOTE | 2023-04-15 14:43 | ED ---
General Adult HPI - General Chief complaint: Neuro Symptoms/Deficit Stated complaint: numbness in lips Time Seen by Provider: 04/15/23 11:13 Source: patient, RN notes reviewed, old records reviewed Mode of arrival: ambulatory Limitations: no limitations - History of Present Illness Initial comments: Patient is a 77-year-old male who presents emergency department over concern for lipid numbness. Recently had a dental procedure. He is complaining of b ilateral both upper and lower lip numbness. No other logical complaints at this time. Denies any chest pain or shortness breath. No weakness. No head injuries. Is not on blood thinners. Has a history of hypertension. Takes 325 aspirin daily. Denies any fevers. His no other acute complaints at this time. Presents for further evaluation at this time.Patient has symptoms started yesterday at approximately 9 or 10 PM. It has been over 12 hours. Symptoms are improving. There are nearly resolved at this time. - Related Data Home Medications Medication Instructions Recorded Confirmed Aspirin 325 mg PO DAILY 10/28/13 05/31/21 Celecoxib [CeleBREX] 200 mg PO DAILY 10/28/13 05/31/21 Doxazosin [Cardura] 8 mg PO HS 10/28/13 05/31/21 Multivitamins, Thera [Multivitamin 1 tab PO DAILY 10/28/13 05/31/21 (formulary)] Fexofenadine HCl [Mi Allergy] 180 mg PO DAILY 10/11/14 05/31/21 modafiniL [Provigil] 300 mg PO DAILY 10/11/14 05/31/21 Cholecalciferol [Vitamin D3 (25 50 mcg PO DAILY 05/29/21 05/31/21 Mcg = 1000 Iu)] N[place] 3 tab PO DAILY 05/29/21 05/31/21 Potassium Gluconate [Potassium 99 mg PO DAILY 05/29/21 05/31/21 Gluconate ER] Turmeric Root Extract [Turmeric] 500 mg PO DAILY 05/29/21 05/31/21 lisinopriL [Zestril] 5 mg PO DAILY 05/29/21 05/31/21 Previous Rx's Medication Instructions Recorded Cephalexin [Keflex] 500 mg PO Q6HR #40 cap 10/20/21 Sulfamethox-Tmp 800-160Mg [Bactrim 1 tab PO Q12HR 10 Days #20 tab 04/12/22 DS 800-160 mg] Ciprofloxacin HCl [Cipro] 500 mg PO Q12HR 1 Days #14 tab 03/19/23 Allergies Allergy/AdvReac Type Severity Reaction Status Date / Time No Known Allergies Allergy Verified 04/15/23 10:59 Review of Systems ROS Statement: Those systems with pertinent positive or pertinent negative responses have been documented in the HPI. Review of Systems: CONST: Denies fever EYES: Denies blurry vision ENT: Denies nasal congestion C/V: Denies Chest pain RESP: Denies shortness of breath GI: Denies abdominal pain : Denies dysuria SKIN: Denies rash. MSK: Denies joint pain. NEURO: Denies headache ROS Other: All systems not noted in ROS Statement are negative. Past Medical History Past Medical History: Eye Disorder, GERD/Reflux, Hypertension, Osteoarthritis (OA), Prostate Disorder, Renal Disease, Skin Disorder, Sleep Apnea/CPAP/BIPAP Additional Past Medical History / Comment(s): PRE-CA SKIN LESIONS; BACK PAIN; HX RT RENAL CALCULUS, cellulitis of the lower legs with chronic venous stasis,benign prostatic hypertrophy, obstructive sleep apnea no CPAP, chronic back pain secondary to degenerative disc disease,macular degeneration, circumcision has catheter bag History of Any Multi-Drug Resistant Organisms: MRSA Date of last positivie culture/infection: 2014 MDRO Source:: finger Past Surgical History: Joint Replacement, Orthopedic Surgery, Prostate Surgery Additional Past Surgical History / Comment(s): 06/30/18 CYSTOSCOPY REMOVAL OF BLADDER CALCULI AND W/ LT URETERAL STENT INSERTION,LT TOTAL KNEE; RT KNEE MAKOPLASTY; ABD LIPOMA REMOVED; RT RENAL CALCULUS LITHOTRIPSY, RT URETERAL STENT, TURP; bilateral cataract removal with lens implants,circumcision Past Anesthesia/Blood Transfusion Reactions: No Reported Reaction Past Psychological History: No Psychological Hx Reported Smoking Status: Former smoker Past Alcohol Use History: None Reported Past Drug Use History: None Reported - Past Family History Father Family Medical History: Cancer Additional Family Medical History / Comment(s): Grandfather had heart attack, father at 67 General Exam - General Exam Comments Initial Comments: General: Appears in no acute distress. HEAD: Normal with no signs of head trauma. EYES: PERRLA, EOMI, conjunctiva normal, no discharge. Pupils 2 mm and equal bilaterally. ENT: Hearing grossly intact, normal oropharynx. RESPIRATORY: Clear breath sounds bilaterally. No wheezes, rales, or rhonchi. C/V: Regular rate and rhythm. S1 and S2 auscultated, peripheral pulses 2+ and intact throughout ABD: Abd is soft, nontender, nondistended EXT: Normal range of motion, no obvious deformity SKIN: No rashes or lesions observed on exposed skin. NEURO: Alert and oriented x 4. Cranial nerves II-XII intact. No focal sensory or strength deficits. No obvious sensory deficits and labs. NIH is 0. GCS of 15. Limitations: no limitations Course Vital Signs 04/15/23 04/15/23 10:56 11:33 Temperature 98 F 98 F Pulse Rate 75 75 Respiratory 18 18 Rate Blood Pressure 149/80 149/80 O2 Sat by Pulse 96 96 Oximetry Medical Decision Making - Medical Decision Making Was pt. sent in by a medical professional or institution (, PA, STAPLER MACHINE, urgent care, hospital, or prison...) When possible be specific @ -Sent by PCP for stroke eval Did you speak to anyone other than the patient for history (EMS, parent, family, police, friend...)? What history was obtained from this source @ -No Did you review nursing and triage notes (agree or disagree)? Why? @ -I reviewed and agree with nursing and triage notes Were old charts reviewed (outside hosp., previous admission, EMS record, old EKG, old radiological studies, urgent care reports/EKG's, prison records)? Report findings @ -Charts reviewed. Differential Diagnosis (chest pain, altered mental status, abdominal pain women, abdominal pain men, vaginal bleeding, weakness, fever, dyspnea, syncope, headache, dizziness, GI bleed, back pain, seizure, CVA, palpatations, mental health, musculoskeletal)? @ -Differential CVA Ischemic stroke, hemorrhagic stroke, brain tumor, atypical migraine, Wernicke's encephalopathy, seizure, multiple sclerosis, meningitis, encephalitis, hypoglycemia, Guillain-Abrams, electrolytes disturbance, myasthenia gravis.... This is not meant to be an all-inclusive list EKG interpreted by me (3pts min.). @ -As above X-rays interpreted by me (1pt min.). @ -Chest x-ray reveals no obvious acute cardiopulmonary process. CT interpreted by me (1pt min.). @ -CT of the brain reveals no obvious acute intracranial process. CT angiogram of the brain reveals no obvious acute process. No evidence of significant stenosis or stroke. U/S interpreted by me (1pt. min.). @ -None done What testing was considered but not performed or refused? (CT, X-rays, U/S, labs)? Why? @ -None What meds were considered but not given or refused? Why? @ -None Did you discuss the management of the patient with other professionals (professionals i.e. , PA, STAPLER MACHINE, lab, RT, psych nurse, sexual assault social worker, business support administrator, teacher, strike warfare/missile systems officer, rehabilitation case coordinator)? Give summary @ -No Was smoking cessation discussed for >3mins.? @ -No Was critical care preformed (if so, how long)? @ -No Were there social determinants of health that impacted care today? How? (Homelessness, low income, unemployed, alcoholism, drug addiction, transportation, low edu. Level, literacy, decrease access to med. care, group home, rehab)? @ -No Was there de-escalation of care discussed even if they declined (Discuss DNR or withdrawal of care, Hospice)? DNR status @ -No What co-morbidities impacted this encounter? (DM, HTN, Smoking, COPD, CAD, Cancer, CVA, ARF, Chemo, Hep., AIDS, mental health diagnosis, sleep apnea, morbid obesity)? @ -None Was patient admitted / discharged? Hospital course, mention meds given and route, prescriptions, significant lab abnormalities, going to OR and other pertinent info. @ -Based on patient's presentation and physical exam, he is concerned for stroke as is his PCP who sent him in here. Currently NIH is 0. Last Tylenol was yesterday. We will obtain CT imaging as well as stroke workup. He was in agreement this plan. Vital signs within acceptable limits. EKG unremarkable. Imaging no evidence of stroke. Chest x-ray within normal chavez its. Vital signs remained stable. Labs are unremarkable otherwise. I discussed results of the patient. Exam unchanged. Discussed results. He was in agreement with discharge home. Strict return precautions discussed. He is already on aspirin. I instructed the patient to follow up with their PCP in the next 1-3 days. . I explained that the patient should return to the emergency department if they experience any worsening symptoms. Strict return precautions were discussed with the patient. The patient expressed understanding of these instructions. I answered all questions that the patient had. The patient was discharged home in good condition with their prescriptions and follow up information. Undiagnosed new problem with uncertain prognosis? @ -No Drug Therapy requiring intensive monitoring for toxicity (Heparin, Nitro, Insulin, Cardizem)? @ -No Were any procedures done? @ -No Diagnosis/symptom? @ -Lip paresthesias Acute, or Chronic, or Acute on Chronic? @ -Acute Uncomplicated (without systemic symptoms) or Complicated (systemic symptoms)? @ -Uncomplicated Side effects of treatment? @ -No Exacerbation, Progression, or Severe Exacerbation? @ -No Poses a threat to life or bodily function? How? (Chest pain, [place], NM, pneumonia, PE, COPD, DKA, ARF, appy, cholecystitis, CVA, Diverticulitis, Homicidal, Suicidal, threat to staff... and all critical care pts) @ -Unlikely - Lab Data Result diagrams: 04/15/23 12:33 04/15/23 11:57 Lab Results 04/15/23 04/15/23 04/15/23 Range/Units 11:21 11:57 11:57 WBC (3.8-10.6) k/uL RBC (4.30-5.90) m/uL Hgb (13.0-17.5) gm/dL Hct (39.0-53.0) % MCV (80.0-100.0) fL MCH (25.0-35.0) pg MCHC (31.0-37.0) g/dL RDW (11.5-15.5) % Plt Count (150-450) k/uL MPV Neutrophils % % Lymphocytes % % Monocytes % % Eosinophils % % Basophils % % Neutrophils # (1.3-7.7) k/uL Lymphocytes # (1.0-4.8) k/uL Monocytes # (0-1.0) k/uL Eosinophils # (0-0.7) k/uL Basophils # (0-0.2) k/uL Macrocytosis PT (10.0-12.5) sec INR (<1.2) APTT (22.0-30.0) sec Sodium 135 L (137-145) mmol/L Potassium 5.2 H (3.5-5.1) mmol/L Chloride 104 (98-107) mmol/L Carbon Dioxide 22 (22-30) mmol/L Anion Gap 9 mmol/L BUN 17 (9-20) mg/dL Creatinine 0.65 L (0.66-1.25) mg/dL Est GFR (CKD-EPI)AfAm >90 (>60 ml/min/1.73 sqM) Est GFR (CKD-EPI)NonAf >90 (>60 ml/min/1.73 sqM) Glucose 106 H (74-99) mg/dL POC Glucose (mg/dL) 109 (70-110) mg/dL POC Glu Application Software Engineer ID Jami Puckett Calcium 8.6 (8.4-10.2) mg/dL Total Bilirubin 0.6 (0.2-1.3) mg/dL AST 45 (17-59) U/L ALT 19 (4-49) U/L Alkaline Phosphatase 58 (38-126) U/L Creatine Kinase 73 (55-170) U/L Total Protein 6.2 L (6.3-8.2) g/dL Albumin 3.7 (3.5-5.0) g/dL Urine Color Red Urine Appearance Cloudy (Clear) Urine pH 6.5 (5.0-8.0) Ur Specific [place] 1.025 (1.001-1.035) Urine Protein 1+ (Negative) Urine Glucose (UA) Negative (Negative) Urine Ketones Negative (Negative) Urine Blood Large (Negative) Urine Nitrite Negative (Negative) Urine Bilirubin Negative (Negative) Urine Urobilinogen <2.0 (<2.0) mg/dL Ur Leukocyte Esterase Small (Negative) Urine RBC >182 H (0-5) /hpf Urine WBC 9 H (0-5) /hpf Ur Squamous Epith Cells 4 (0-4) /hpf Urine Mucus Many H (None) /hpf 04/15/23 04/15/23 Range/Units 12:33 12:33 WBC 5.7 (3.8-10.6) k/uL RBC 3.95 L (4.30-5.90) m/uL Hgb 12.9 L (13.0-17.5) gm/dL Hct 40.4 (39.0-53.0) % MCV 102.3 H (80.0-100.0) fL MCH 32.6 (25.0-35.0) pg MCHC 31.8 (31.0-37.0) g/dL RDW 13.6 (11.5-15.5) % Plt Count 140 L (150-450) k/uL MPV 7.9 Neutrophils % 70 % Lymphocytes % 18 % Monocytes % 5 % Eosinophils % 5 % Basophils % 0 % Neutrophils # 4.0 (1.3-7.7) k/uL Lymphocytes # 1.0 (1.0-4.8) k/uL Monocytes # 0.3 (0-1.0) k/uL Eosinophils # 0.3 (0-0.7) k/uL Basophils # 0.0 (0-0.2) k/uL Macrocytosis Slight PT 10.9 (10.0-12.5) sec INR 1.0 (<1.2) APTT 19.8 L (22.0-30.0) sec Sodium (137-145) mmol/L Potassium (3.5-5.1) mmol/L Chloride (98-107) mmol/L Carbon Dioxide (22-30) mmol/L Anion Gap mmol/L BUN (9-20) mg/dL Creatinine (0.66-1.25) mg/dL Est GFR (CKD-EPI)AfAm (>60 ml/min/1.73 sqM) Est GFR (CKD-EPI)NonAf (>60 ml/min/1.73 sqM) Glucose (74-99) mg/dL POC Glucose (mg/dL) (70-110) mg/dL POC Glu Application Software Engineer ID Calcium (8.4-10.2) mg/dL Total Bilirubin (0.2-1.3) mg/dL AST (17-59) U/L ALT (4-49) U/L Alkaline Phosphatase (38-126) U/L Creatine Kinase (55-170) U/L Total Protein (6.3-8.2) g/dL Albumin (3.5-5.0) g/dL Urine Color Urine Appearance (Clear) Urine pH (5.0-8.0) Ur Specific [place] (1.001-1.035) Urine Protein (Negative) Urine Glucose (UA) (Negative) Urine Ketones (Negative) Urine Blood (Negative) Urine Nitrite (Negative) Urine Bilirubin (Negative) Urine Urobilinogen (<2.0) mg/dL Ur Leukocyte Esterase (Negative) Urine RBC (0-5) /hpf Urine WBC (0-5) /hpf Ur Squamous Epith Cells (0-4) /hpf Urine Mucus (None) /hpf - EKG Data -: EKG Interpreted by Me EKG Comments: 12-lead Electrocardiogram Interpretation Note EKG was reviewed and interpreted by myself. 12-lead ECG performed at 1110 is interpreted by me as revealing normal sinus rhythm at a rate of 73 beats per minute. Left axis deviation. TX interval is 194 ms, QRS duration is 98 ms, QTc is 349 ms.. There were no ST or T wave abnormalities to suggest myocardial ischemia or injury. R wave progression across the precordium was satisfactory. By my interpretation this EKG is non-diagnostic for acute ischemia. Disposition Clinical Impression: Facial paresthesia Disposition: HOME SELF-CARE Condition: Good Is patient prescribed a controlled substance at d/c from ED?: No Referrals: Heber Martinez MD [Primary Care Provider] - 1-2 days Time of Disposition: 14:31
[2023-04-15] MEDS ORDERED: diphenhydrAMINE 25 MG CAP PO STA (15:09)
[2023-04-15] MEDS ORDERED: diphenhydrAMINE ELIXIR 25 MG/10 ML CUP PO STA (15:17)
[2023-04-15 15:33] VITALS: BP 133/72; PULSE 78; RESP 17; TEMP 97.8
== END 2023-04-15 15:22 | disposition home or self-care (01) ==
LOC: EC 10:43
DX: R20.2 Paresthesia of skin (principal); I67.82 Cerebral ischemia; I10 Essential (primary) hypertension; M19.90 Unspecified osteoarthritis, unspecified site; G47.30 Sleep apnea, unspecified; Z87.891 Personal history of nicotine dependence; Z79.1 Long term (current) use of non-steroidal anti-inflammatories (NSAID); Z79.899 Other long term (current) drug therapy; Z79.82 Long term (current) use of aspirin; Z90.79 Acquired absence of other genital organ(s)
CPT/HCPCS: 36415; 93005; 80053; 82550; 85025; 85610; 85730; 81001; 71046; 70496; 70450; 70498; 99285; Q9967

== ENCOUNTER 2023-10-25 22:43 | Emergency (ER) | payer MEDICARE ==
--- NOTE | 2023-10-25 23:09 | ED ---
Weakness HPI - General Chief complaint: Weakness Stated complaint: Weakness Time Seen by Provider: 10/25/23 22:44 Source: EMS, RN notes reviewed, old records reviewed Mode of arrival: EMS Limitations: altered mental status - History of Present Illness Initial comments: This is a 77-year-old male for severe weakness and inability to get off the ground after feeling weak and falling to the ground. No significant traumatic injuries from his fall there is generalized weakness regarding and resulting in a fall with patient unable to get himself off the ground or failure and was unable to get him off the ground MD Complaint: generalized weakness, lack of energy, difficulty walking -: days(s) Location: generalized Severity: severe Severity scale (1-10): 10 Quality: tingling, numbness, aching Consistency: constant Improves with: none Worsens with: none Context: recent illness, history of similar Associated Symptoms: denies other symptoms - Related Data Home Medications Medication Instructions Recorded Confirmed Aspirin 325 mg PO DAILY 10/28/13 10/26/23 Doxazosin [Cardura] 8 mg PO HS 10/28/13 10/26/23 Multivitamins, Thera [Multivitamin 1 tab PO DAILY 10/28/13 10/26/23 (formulary)] modafiniL [Provigil] 300 mg PO DAILY 10/11/14 10/26/23 Cholecalciferol [Vitamin D3 (25 50 mcg PO DAILY 05/29/21 10/26/23 Mcg = 1000 Iu)] Turmeric Root Extract [Turmeric] 500 mg PO DAILY 05/29/21 10/26/23 Coffee Xt/Phosphatidyl Serine 1 cap PO DAILY 10/26/23 10/26/23 [Neuriva Original 100-100Mg Cap] Ginkgo Biloba [place] Extract [Ginkgo 125 mg PO DAILY 10/26/23 10/26/23 Biloba] Hydrocortisone Cream 1 applic TOPICAL BID PRN 10/26/23 10/26/23 [Hydrocortisone 2.5% Cream] Ketoconazole 2% Cream [Nizoral 2%] 1 applic TOPICAL BID PRN 10/26/23 10/26/23 Losartan [Cozaar] 25 mg PO DAILY 10/26/23 10/26/23 Spironolactone [Aldactone] 25 mg PO DAILY 10/26/23 10/26/23 Previous Rx's Medication Instructions Recorded Cephalexin [Keflex] 500 mg PO Q8HR #21 cap 10/26/23 Allergies Allergy/AdvReac Type Severity Reaction Status Date / Time No Known Allergies Allergy Verified 10/26/23 13:58 Review of Systems ROS Statement: Those systems with pertinent positive or pertinent negative responses have been documented in the HPI. ROS Other: All systems not noted in ROS Statement are negative. Past Medical History Past Medical History: Eye Disorder, GERD/Reflux, Hypertension, Osteoarthritis (OA), Prostate Disorder, Renal Disease, Skin Disorder, Sleep Apnea/CPAP/BIPAP Additional Past Medical History / Comment(s): PRE-CA SKIN LESIONS; BACK PAIN; HX RT RENAL CALCULUS, cellulitis of the lower legs with chronic venous stasis,benign prostatic hypertrophy, obstructive sleep apnea no CPAP, chronic back pain secondary to degenerative disc disease,macular degeneration, circumcision has catheter bag History of Any Multi-Drug Resistant Organisms: MRSA Date of last positivie culture/infection: 2014 MDRO Source:: finger Past Surgical History: Joint Replacement, Orthopedic Surgery, Prostate Surgery Additional Past Surgical History / Comment(s): 06/30/18 CYSTOSCOPY REMOVAL OF BLADDER CALCULI AND W/ LT URETERAL STENT INSERTION,LT TOTAL KNEE; RT KNEE MAKOPLASTY; ABD LIPOMA REMOVED; RT RENAL CALCULUS LITHOTRIPSY, RT URETERAL STENT, TURP; bilateral cataract removal with lens implants,circumcision Past Anesthesia/Blood Transfusion Reactions: No Reported Reaction Past Psychological History: No Psychological Hx Reported Smoking Status: Former smoker Past Alcohol Use History: Rare Past Drug Use History: None Reported - Past Family History Father Family Medical History: Cancer Additional Family Medical History / Comment(s): Grandfather had heart attack, father at 67 General Exam General appearance: alert, in no apparent distress Head exam: Present: atraumatic, normocephalic, normal inspection Eye exam: Present: normal appearance, PERRL, EOMI. Absent: scleral icterus, conjunctival injection, periorbital swelling ENT exam: Present: normal exam, mucous membranes moist Neck exam: Present: normal inspection. Absent: tenderness, meningismus, lymphadenopathy Respiratory exam: Present: normal lung sounds bilaterally. Absent: respiratory distress, wheezes, rales, rhonchi, stridor Cardiovascular Exam: Present: regular rate, normal rhythm, normal heart sounds. Absent: systolic murmur, diastolic murmur, rubs, gallop, clicks GI/Abdominal exam: Present: soft, normal bowel sounds. Absent: distended, tenderness, guarding, rebound, rigid Extremities exam: Present: normal inspection, full ROM, normal capillary refill. Absent: tenderness, pedal edema, joint swelling, calf tenderness Back exam: Present: normal inspection Neurological exam: Present: alert, oriented X3, CN II-XII intact Psychiatric exam: Present: normal affect, normal mood Skin exam: Present: warm, dry, intact, normal color. Absent: rash Course Vital Signs 10/25/23 10/26/23 10/26/23 22:49 00:00 01:49 Temperature 98.2 F 98.3 F Pulse Rate 80 79 84 Respiratory 18 18 18 Rate Blood Pressure 134/65 126/63 137/67 O2 Sat by Pulse 95 95 98 Oximetry - Reevaluation(s) Reevaluation #1: 10/25/23 23:35 Medical records reviewed Reevaluation #2: 10/25/23 23:35 Patient has no improvement in symptoms here in the ER Reevaluation #3: 10/25/23 23:36 Patient informed of results questions answered Reevaluation #4: Was pt. sent in by a medical professional or institution (, PA, SUBSTATION MECHANIC, urgent care, hospital, or intermediate...) When possible be specific @ -no Did you speak to anyone other than the patient for history (EMS, parent, family, police, friend...)? What history was obtained from this source @ -no Did you review nursing and triage notes (agree or disagree)? Why? @ -agree Are old charts reviewed (outside hosp., previous admission, EMS record, old EKG, old radiological studies, urgent care reports/EKG's, intermediate records)? Report findings @ -yes Differential Diagnosis (chest pain, altered mental status, abdominal pain women, abdominal pain men, vaginal bleeding, weakness, fever, dyspnea, syncope, headache, dizziness, GI bleed, back pain, seizure, CVA, palpatations, mental health, musculoskeletal)? @ -prior EKG interpreted by me (3pts min.). @ -yes X-rays interpreted by me (1pt min.). @ -no CT interpreted by me (1pt min.). @ -no U/S interpreted by me (1pt. min.). @ -no What testing was considered but not performed or refused? (CT, X-rays, U/S, labs)? Why? @ -none What meds were considered but not given or refused? Why? @ -none Did you discuss the management of the patient with other professionals (professionals i.e. , PA, SUBSTATION MECHANIC, lab, RT, psych nurse, social studies teacher, sr technical sales consultant, teacher, state highway police officer, case sealer)? Give summary @ -no Was smoking cessation discussed for >3mins.? @ -no Was critical care preformed (if so, how long)? @ -no Were there social determinants of health that impacted care today? How? (Homelessness, low income, unemployed, alcoholism, drug addiction, transportation, low edu. Level, literacy, decrease access to med. care, [facility], rehab)? @ -none Was there de-escalation of care discussed even if they declined (Discuss DNR or withdrawal of care, Hospice)? DNR status @ -no What co-morbidities impacted this encounter? (DM, HTN, Smoking, COPD, CAD, Cancer, CVA, ARF, Chemo, Hep., AIDS, mental health diagnosis, sleep apnea, morbid obesity)? @ -none Was patient admitted / discharged? Hospital course, mention meds given and route, prescriptions, significant lab abnormalities, going to OR and other pertinent info. @ - 77 male with debilitating weakness. Patient needed lift assist presents to the ER found to have UTI and will be discharged home Discharge Undiagnosed new problem with uncertain prognosis? @ -no Drug Therapy requiring intensive monitoring for toxicity (Heparin, Nitro, Insulin, Cardizem)? @ -no Were any procedures done? @ -no Diagnosis/symptom? @ -UTI and weakness Acute, or Chronic, or Acute on Chronic? @ -Acute Uncomplicated (without systemic symptoms) or Complicated (systemic symptoms)? @ -Complicated Side effects of treatment? @ -no Exacerbation, Progression, or Severe Exacerbation? @ -exacerbation Poses a threat to life or bodily function? How? (Chest pain, [place], [place], pneumonia, PE, COPD, DKA, ARF, appy, cholecystitis, CVA, Diverticulitis, Homicidal, Suicidal, threat to staff... and all critical care pts) @ -yes with extremes of age Reevaluation #5: Differential Weakness: Hypoglycemia, shock, sepsis, hyponatremia, anemia, infection, [place], ETOH, adverse medicine reaction, overdose, stroke, this is not meant to be an all-inclusive list. EKG Findings - EKG Comments: EKG Findings:: EKG is sinus 81 MS 133 QRS 56 QTc 386 - EKG Results: EKG: interpreted by [facility] Medical Decision Making - Medical Decision Making 77 male with debilitating weakness. Patient needed lift assist presents to the ER found to have UTI and will be discharged home - Lab Data Result diagrams: 10/25/23 23:08 10/26/23 00:19 Lab Results 10/25/23 10/26/23 10/26/23 Range/Units 23:08 00:19 00:19 WBC 13.0 H (3.8-10.6) k/uL RBC 4.05 L (4.30-5.90) m/uL Hgb 13.7 (13.0-17.5) gm/dL Hct 40.5 (39.0-53.0) % MCV 100.2 H (80.0-100.0) fL MCH 33.7 (25.0-35.0) pg MCHC 33.7 (31.0-37.0) g/dL RDW 13.9 (11.5-15.5) % Plt Count 244 (150-450) k/uL MPV 8.0 Neutrophils % 85 % Lymphocytes % 7 % Monocytes % 5 % Eosinophils % 2 % Basophils % 0 % Neutrophils # 11.0 H (1.3-7.7) k/uL Lymphocytes # 0.8 L (1.0-4.8) k/uL Monocytes # 0.7 (0-1.0) k/uL Eosinophils # 0.2 (0-0.7) k/uL Basophils # 0.0 (0-0.2) k/uL PT 11.1 (10.0-12.5) sec INR 1.0 (<1.2) APTT 24.1 (22.0-30.0) sec Sodium 137 (137-145) mmol/L Potassium 3.9 (3.5-5.1) mmol/L Chloride 106 (98-107) mmol/L Carbon Dioxide 24 (22-30) mmol/L Anion Gap 7 mmol/L BUN 13 (9-20) mg/dL Creatinine 0.55 L (0.66-1.25) mg/dL Est GFR (CKD-EPI)AfAm >90 (>60 ml/min/1.73 sqM) Est GFR (CKD-EPI)NonAf >90 (>60 ml/min/1.73 sqM) Glucose 114 H (74-99) mg/dL Plasma Lactic Acid [place] (0.7-2.0) mmol/L Calcium 8.3 L (8.4-10.2) mg/dL Phosphorus 2.8 (2.5-4.5) mg/dL Magnesium 1.9 (1.6-2.3) mg/dL Total Bilirubin 0.7 (0.2-1.3) mg/dL AST 31 (17-59) U/L ALT 19 (4-49) U/L Alkaline Phosphatase 70 (38-126) U/L Troponin I (0.000-0.034) ng/mL Total Protein 6.2 L (6.3-8.2) g/dL Albumin 3.7 (3.5-5.0) g/dL TSH 0.613 (0.465-4.680) mIU/L Urine Color Urine Appearance (Clear) Urine pH (5.0-8.0) Ur Specific [place] (1.001-1.035) Urine Protein (Negative) Urine Glucose (UA) (Negative) Urine Ketones (Negative) Urine Blood (Negative) Urine Nitrite (Negative) Urine Bilirubin (Negative) Urine Urobilinogen (<2.0) mg/dL Ur Leukocyte Esterase (Negative) Urine RBC (0-5) /hpf Urine WBC (0-5) /hpf Urine WBC Clumps (None) /hpf Ur Squamous Epith Cells (0-4) /hpf Amorphous Sediment (None) /hpf Urine Bacteria (None) /hpf Urine Mucus (None) /hpf 10/26/23 10/26/23 10/26/23 Range/Units 00:19 00:19 00:19 WBC (3.8-10.6) k/uL RBC (4.30-5.90) m/uL Hgb (13.0-17.5) gm/dL Hct (39.0-53.0) % MCV (80.0-100.0) fL MCH (25.0-35.0) pg MCHC (31.0-37.0) g/dL RDW (11.5-15.5) % Plt Count (150-450) k/uL MPV Neutrophils % % Lymphocytes % % Monocytes % % Eosinophils % % Basophils % % Neutrophils # (1.3-7.7) k/uL Lymphocytes # (1.0-4.8) k/uL Monocytes # (0-1.0) k/uL Eosinophils # (0-0.7) k/uL Basophils # (0-0.2) k/uL PT (10.0-12.5) sec INR (<1.2) APTT (22.0-30.0) sec Sodium (137-145) mmol/L Potassium (3.5-5.1) mmol/L Chloride (98-107) mmol/L Carbon Dioxide (22-30) mmol/L Anion Gap mmol/L BUN (9-20) mg/dL Creatinine (0.66-1.25) mg/dL Est GFR (CKD-EPI)AfAm (>60 ml/min/1.73 sqM) Est GFR (CKD-EPI)NonAf (>60 ml/min/1.73 sqM) Glucose (74-99) mg/dL Plasma Lactic Acid [place] 1.2 (0.7-2.0) mmol/L Calcium (8.4-10.2) mg/dL Phosphorus (2.5-4.5) mg/dL Magnesium (1.6-2.3) mg/dL Total Bilirubin (0.2-1.3) mg/dL AST (17-59) U/L ALT (4-49) U/L Alkaline Phosphatase (38-126) U/L Troponin I <0.012 (0.000-0.034) ng/mL Total Protein (6.3-8.2) g/dL Albumin (3.5-5.0) g/dL TSH (0.465-4.680) mIU/L Urine Color Yellow Urine Appearance Turbid (Clear) Urine pH 6.0 (5.0-8.0) Ur Specific [place] 1.019 (1.001-1.035) Urine Protein 1+ H (Negative) Urine Glucose (UA) Negative (Negative) Urine Ketones 1+ H (Negative) Urine Blood Small H (Negative) Urine Nitrite Positive (Negative) Urine Bilirubin Negative (Negative) Urine Urobilinogen <2.0 (<2.0) mg/dL Ur Leukocyte Esterase Large H (Negative) Urine RBC 40 H (0-5) /hpf Urine WBC >182 H (0-5) /hpf Urine WBC Clumps Occasional H (None) /hpf Ur Squamous Epith Cells 3 (0-4) /hpf Amorphous Sediment Occasional H (None) /hpf Urine Bacteria Many H (None) /hpf Urine Mucus Many H (None) /hpf - EKG Data -: EKG Interpreted by Me Disposition Clinical Impression: Urinary tract infection, Weakness, Debility Disposition: HOME SELF-CARE Condition: Fair Instructions (If sedation given, give patient instructions): Urinary Tract Infection in Men (ED) Prescriptions: Cephalexin [Keflex] 500 mg PO Q8HR #21 cap Is patient prescribed a controlled substance at d/c from ED?: No Referrals: Heber Martinez DO [Primary Care Provider] - 1-2 days Time of Disposition: 01:30
[2023-10-25 23:23] VITALS: RESP 18
[2023-10-26 00:11] LABS: Basophils % (A) 0 %; Eosinophils # (A) 0.2 k/uL (0-0.7); Eosinophils % (A) 2 %; HCT 40.5 % (39.0-53.0); HGB 13.7 gm/dL (13.0-17.5); Lymphocytes # (A) 0.8 k/uL (1.0-4.8); Lymphocytes % (A) 7 %; MCH 33.7 pg (25.0-35.0); MCHC 33.7 g/dL (31.0-37.0); MCV 100.2 fL (80.0-100.0); Monocytes # (A) 0.7 k/uL (0-1.0); Monocytes % (A) 5 %; Neutrophils % (A) 85 %; Platelet Count 244 k/uL (150-450); RBC 4.05 m/uL (4.30-5.90); RDW 13.9 % (11.5-15.5)
[2023-10-26 00:20] LABS: Partial Thromboplastin Time 24.1 sec (22.0-30.0); Prothrombin Time 11.1 sec (10.0-12.5)
[2023-10-26 00:42] LABS: ALT 19 U/L (4-49); AST 31 U/L (17-59); African American GFR (CKD) >90 (>60 ml/min/1.73 sqM); Albumin 3.7 g/dL (3.5-5.0); Alkaline Phosphatase 70 U/L (38-126); Anion Gap 7 mmol/L; Blood Urea Nitrogen 13 mg/dL (9-20); Calcium 8.3 mg/dL (8.4-10.2); Carbon Dioxide 24 mmol/L (22-30); Chloride 106 mmol/L (98-107); Glucose 114 mg/dL (74-99); Magnesium 1.9 mg/dL (1.6-2.3); Non-African American GFR(CKD) >90 (>60 ml/min/1.73 sqM); Phosphorus 2.8 mg/dL (2.5-4.5); Potassium 3.9 mmol/L (3.5-5.1); Sodium 137 mmol/L (137-145); Total Bilirubin 0.7 mg/dL (0.2-1.3); Total Protein 6.2 g/dL (6.3-8.2)
[2023-10-26 01:20] LABS: Amorphous Sediment,Urine Occasional /hpf; Appearance,Urine Turbid (Clear); Bacteria,Urine Many /hpf; Bilirubin,Urine Negative (Negative); Blood,Urine Small (Negative); Color,Urine Yellow; Glucose,Urine (UA) Negative (Negative); Ketones,Urine 1+ (Negative); Leukocyte Esterase,Urine Large (Negative); Mucus,Urine Many /hpf; Nitrite,Urine Positive (Negative); Protein,Urine 1+ (Negative); RBC,Urine 40 /hpf (0-5); Specific Gravity,Urine 1.019 (1.001-1.035); Squamous Epithelial Cell,Urine 3 /hpf (0-4); Urobilinogen,Urine <2.0 mg/dL (<2.0); WBC,Urine >182 /hpf (0-5)
[2023-10-26] MEDS: CEPHALEXIN 500MG STARTER PACK 4 CAP BTL PO STA (01:40)
[2023-10-26] MEDS: CEPHALEXIN 500 MG CAP PO STA (01:40)
[2023-10-26 01:56] VITALS: BP 137/67; PULSE 84; TEMP 98.3
== END 2023-10-26 02:35 | disposition home or self-care (01) ==
LOC: EC 22:43
DX: N39.0 Urinary tract infection, site not specified (principal); R53.1 Weakness; R53.81 Other malaise; Z87.891 Personal history of nicotine dependence
CPT/HCPCS: 99285; 36415; 93005; 80053; 83605; 83735; 84100; 84443; 84484; 85025; 85610; 85730; 81001; 96365; J0696

== ENCOUNTER 2023-10-26 12:29 | Inpatient (IN) | payer MEDICARE ==
[2023-10-26] MEDS: SODIUM CHLORIDE 0.9% 500 ML 500 ML IV STA (13:31)
[2023-10-26 14:11] LABS: Basophils % (A) 0 %; Eosinophils % (A) 0 %; HCT 41.8 % (39.0-53.0); HGB 13.5 gm/dL (13.0-17.5); Lymphocytes # (A) 0.4 k/uL (1.0-4.8); Lymphocytes % (A) 3 %; MCH 32.4 pg (25.0-35.0); MCHC 32.4 g/dL (31.0-37.0); MCV 100.2 fL (80.0-100.0); Mean Platelet Volume 8.4; Monocytes % (A) 7 %; Neutrophils # (A) 12.8 k/uL (1.3-7.7); Neutrophils % (A) 89 %; Platelet Count 235 k/uL (150-450); RBC 4.17 m/uL (4.30-5.90); RDW 13.7 % (11.5-15.5); WBC 14.4 k/uL (3.8-10.6)
[2023-10-26 14:22] LABS: ALT 17 U/L (4-49); AST 30 U/L (17-59); African American GFR (CKD) >90 (>60 ml/min/1.73 sqM); Albumin 3.4 g/dL (3.5-5.0); Alkaline Phosphatase 68 U/L (38-126); Anion Gap 5 mmol/L; Blood Urea Nitrogen 12 mg/dL (9-20); Calcium 8.3 mg/dL (8.4-10.2); Carbon Dioxide 24 mmol/L (22-30); Chloride 105 mmol/L (98-107); Creatine Kinase 104 U/L (55-170); Glucose 115 mg/dL (74-99); Magnesium 1.8 mg/dL (1.6-2.3); Non-African American GFR(CKD) >90 (>60 ml/min/1.73 sqM); Sodium 134 mmol/L (137-145); Total Bilirubin 0.6 mg/dL (0.2-1.3); Total Protein 5.8 g/dL (6.3-8.2)
[2023-10-26] MEDS ORDERED: NALOXONE 0.4 MG/ML 1 ML VIAL IV PRN (14:38)
--- NOTE | 2023-10-26 14:38 | ED ---
General Adult HPI - General Chief complaint: Weakness Stated complaint: weakness Time Seen by Provider: 10/26/23 12:49 Source: patient, RN notes reviewed, old records reviewed Mode of arrival: EMS Limitations: no limitations - History of Present Illness Initial comments: Patient is a 77-year-old male who presents emergency department complaining of weakness. He has a history of straight cathing himself. Was diagnosed with a UTI yesterday. Returns as he is having a hard time ambulating and completing his normal ADLs. Family became concerned and sent him here for further evaluation. Complains of generalized weakness. States feels unsteady on his legs. Denies any abdominal pain, chest pain, shortness of breath, fevers, chills, cough. Has no other acute complaints at this time. Presents for further evaluation. - Related Data Home Medications Medication Instructions Recorded Confirmed Aspirin 325 mg PO DAILY 10/28/13 10/26/23 Doxazosin [Cardura] 8 mg PO HS 10/28/13 10/26/23 Multivitamins, Thera [Multivitamin 1 tab PO DAILY 10/28/13 10/26/23 (formulary)] modafiniL [Provigil] 300 mg PO DAILY 10/11/14 10/26/23 Cholecalciferol [Vitamin D3 (25 50 mcg PO DAILY 05/29/21 10/26/23 Mcg = 1000 Iu)] Turmeric Root Extract [Turmeric] 500 mg PO DAILY 05/29/21 10/26/23 Coffee Xt/Phosphatidyl Serine 1 cap PO DAILY 10/26/23 10/26/23 [Neuriva Original 100-100Mg Cap] Ginkgo Biloba [place] Extract [Ginkgo 125 mg PO DAILY 10/26/23 10/26/23 Biloba] Hydrocortisone Cream 1 applic TOPICAL BID PRN 10/26/23 10/26/23 [Hydrocortisone 2.5% Cream] Ketoconazole 2% Cream [Nizoral 2%] 1 applic TOPICAL BID PRN 10/26/23 10/26/23 Losartan [Cozaar] 25 mg PO DAILY 10/26/23 10/26/23 Spironolactone [Aldactone] 25 mg PO DAILY 10/26/23 10/26/23 Previous Rx's Medication Instructions Recorded Cephalexin [Keflex] 500 mg PO Q8HR #21 cap 10/26/23 Allergies Allergy/AdvReac Type Severity Reaction Status Date / Time No Known Allergies Allergy Verified 10/26/23 13:58 Review of Systems ROS Statement: Those systems with pertinent positive or pertinent negative responses have been documented in the HPI. Review of Systems: CONST: Denies fever EYES: Denies blurry vision ENT: Denies nasal congestion C/V: Denies Chest pain RESP: Denies shortness of breath GI: Denies abdominal pain : Denies dysuria SKIN: Denies rash. MSK: Endorses generalized weakness NEURO: Denies headache ROS Other: All systems not noted in ROS Statement are negative. Past Medical History Past Medical History: Eye Disorder, GERD/Reflux, Hypertension, Osteoarthritis (OA), Prostate Disorder, Renal Disease, Skin Disorder, Sleep Apnea/CPAP/BIPAP Additional Past Medical History / Comment(s): PRE-CA SKIN LESIONS; BACK PAIN; HX RT RENAL CALCULUS, cellulitis of the lower legs with chronic venous stasis,benign prostatic hypertrophy, obstructive sleep apnea no CPAP, chronic back pain secondary to degenerative disc disease,macular degeneration, circumcision has catheter bag History of Any Multi-Drug Resistant Organisms: MRSA Date of last positivie culture/infection: 2014 MDRO Source:: finger Past Surgical History: Joint Replacement, Orthopedic Surgery, Prostate Surgery Additional Past Surgical History / Comment(s): 06/30/18 CYSTOSCOPY REMOVAL OF BLADDER CALCULI AND W/ LT URETERAL STENT INSERTION,LT TOTAL KNEE; RT KNEE MAKOPLASTY; ABD LIPOMA REMOVED; RT RENAL CALCULUS LITHOTRIPSY, RT URETERAL STENT, TURP; bilateral cataract removal with lens implants,circumcision Past Anesthesia/Blood Transfusion Reactions: No Reported Reaction Past Psychological History: No Psychological Hx Reported Smoking Status: Former smoker Past Alcohol Use History: Rare Past Drug Use History: None Reported - Past Family History Father Family Medical History: Cancer Additional Family Medical History / Comment(s): Grandfather had heart attack, father at 67 General Exam - General Exam Comments Initial Comments: General: Appears in no acute distress. HEAD: Normal with no signs of head trauma. EYES: PERRLA, EOMI, conjunctiva normal, no discharge. ENT: Hearing grossly intact, normal oropharynx. RESPIRATORY: Clear breath sounds bilaterally. No wheezes, rales, or rhonchi. C/V: Regular rate and rhythm. S1 and S2 auscultated, chronic symmetrical lower extremity edema, peripheral pulses 2+ and intact throughout ABD: Abd is soft, nontender, nondistended EXT: Normal range of motion, no obvious deformity SKIN: No rashes or lesions observed on exposed skin. NEURO: Alert and oriented x 4. Cranial nerves II-XII intact. No focal sensory or strength deficits. GCS of 15. No focal deficits. Generalized weakness. Limitations: no limitations Course Vital Signs 10/26/23 12:34 Temperature 99.6 F Pulse Rate 86 Respiratory 18 Rate Blood Pressure 143/74 O2 Sat by Pulse 95 Oximetry Medical Decision Making - Medical Decision Making Was pt. sent in by a medical professional or institution (, PA, [employer], urgent care, hospital, or [facility]...) When possible be specific @ -No Did you speak to anyone other than the patient for history (EMS, parent, family, police, friend...)? What history was obtained from this source @ -No Did you review nursing and triage notes (agree or disagree)? Why? @ -I reviewed and agree with nursing and triage notes Were old charts reviewed (outside hosp., previous admission, EMS record, old EKG, old radiological studies, urgent care reports/EKG's, [facility] records)? Report findings @ -Old charts reviewed Differential Diagnosis (chest pain, altered mental status, abdominal pain women, abdominal pain men, vaginal bleeding, weakness, fever, dyspnea, syncope, headache, dizziness, GI bleed, back pain, seizure, CVA, palpatations, mental health, musculoskeletal)? @ -Differential Weakness: Hypoglycemia, shock, sepsis, hyponatremia, anemia, infection, [place], ETOH, adverse medicine reaction, overdose, stroke, this is not meant to be an all-inclusive list. EKG interpreted by me (3pts min.). @ -As above X-rays interpreted by me (1pt min.). @ -Chest x-ray shows no obvious acute focal infiltrate or process. Appears similar to prior chest x-rays. CT interpreted by me (1pt min.). @ -None done U/S interpreted by me (1pt. min.). @ -None done What testing was considered but not performed or refused? (CT, X-rays, U/S, labs)? Why? @ -None What meds were considered but not given or refused? Why? @ -None Did you discuss the management of the patient with other professionals (professionals i.e. [employer], PA, [employer], lab, RT, psych nurse, criminal justice social worker, outsole flexer, teacher, financial administration officer, clinical case manager)? Give summary @ -Discussed with sound physician condition group, Dr. Austin who accepted the admission. Was smoking cessation discussed for >3mins.? @ -No Was critical care preformed (if so, how long)? @ -No Were there social determinants of health that impacted care today? How? (Homelessness, low income, unemployed, alcoholism, drug addiction, transportation, low edu. Level, literacy, decrease access to med. care, shelter, rehab)? @ -No Was there de-escalation of care discussed even if they declined (Discuss DNR or withdrawal of care, Hospice)? DNR status @ -No What co-morbidities impacted this encounter? (DM, HTN, Smoking, COPD, CAD, C ancer, CVA, ARF, Chemo, Hep., AIDS, mental health diagnosis, sleep apnea, morbid obesity)? @ -History of UTIs with self cathing Was patient admitted / discharged? Hospital course, mention meds given and route, prescriptions, significant lab abnormalities, going to OR and other pertinent info. @ -Patient presents with generalized weakness. Diagnosed with a UTI yesterday and returns today for worsening weakness. Will obtain basic labs, screening EKG and chest x-ray. Patient was in agreement this plan. Garcia catheter will be placed at the patient's request. Vital signs are within acceptable limits. He will be given IV fluids. Chest x-ray shows no obvious acute infiltrate. Labs remarkable for leukocytosis of 14.4, and urinalysis from yesterday was remarkable for UTI. Lactic acid wit hin normal limits. EKG shows no signs of acute ischemia. I discussed results with the patient. I would like to admit him to the hospital for his weakness, as well as his UTI. He will be started on IV cefepime based off of a urine culture from 2022 as culture was not obtained yesterday. Patient was in agreement this plan. Discussed with admitting team, Dr. Austin who accepted the admission. Undiagnosed new problem with uncertain prognosis? @ -No Drug Therapy requiring intensive monitoring for toxicity (Heparin, Nitro, Insulin, Cardizem)? @ -No Were any procedures done? @ -No Diagnosis/symptom? @ -UTI, weakness Acute, or Chronic, or Acute on Chronic? @ -Acute Uncomplicated (without systemic symptoms) or Complicated (systemic symptoms)? @ -Complicated Side effects of treatment? @ -No Exacerbation, Progression, or Severe Exacerbation? @ -No Poses a threat to life or bodily function? How? (Chest pain, [place], KS, pneumonia, PE, COPD, DKA, ARF, appy, cholecystitis, CVA, Diverticulitis, Homicidal, Suicidal, threat to staff... and all critical care pts) @ -Possibly - Lab Data Result diagrams: 10/26/23 13:27 10/26/23 13:27 Lab Results 10/26/23 10/26/23 10/26/23 Range/Units 13:27 13:27 13:27 WBC 14.4 H (3.8-10.6) k/uL RBC 4.17 L (4.30-5.90) m/uL Hgb 13.5 (13.0-17.5) gm/dL Hct 41.8 (39.0-53.0) % MCV 100.2 H (80.0-100.0) fL MCH 32.4 (25.0-35.0) pg MCHC 32.4 (31.0-37.0) g/dL RDW 13.7 (11.5-15.5) % Plt Count 235 (150-450) k/uL MPV 8.4 Neutrophils % 89 % Lymphocytes % 3 % Monocytes % 7 % Eosinophils % 0 % Basophils % 0 % Neutrophils # 12.8 H (1.3-7.7) k/uL Lymphocytes # 0.4 L (1.0-4.8) k/uL Monocytes # 1.0 (0-1.0) k/uL Eosinophils # 0.0 (0-0.7) k/uL Basophils # 0.0 (0-0.2) k/uL Sodium 134 L (137-145) mmol/L Potassium 4.0 (3.5-5.1) mmol/L Chloride 105 (98-107) mmol/L Carbon Dioxide 24 (22-30) mmol/L Anion Gap 5 mmol/L BUN 12 (9-20) mg/dL Creatinine 0.61 L (0.66-1.25) mg/dL Est GFR (CKD-EPI)AfAm >90 (>60 ml/min/1.73 sqM) Est GFR (CKD-EPI)NonAf >90 (>60 ml/min/1.73 sqM) Glucose 115 H (74-99) mg/dL Plasma Lactic Acid Casey 1.3 (0.7-2.0) mmol/L Calcium 8.3 L (8.4-10.2) mg/dL Magnesium 1.8 (1.6-2.3) mg/dL Total Bilirubin 0.6 (0.2-1.3) mg/dL AST 30 (17-59) U/L ALT 17 (4-49) U/L Alkaline Phosphatase 68 (38-126) U/L Creatine Kinase 104 (55-170) U/L Total Protein 5.8 L (6.3-8.2) g/dL Albumin 3.4 L (3.5-5.0) g/dL - EKG Data -: EKG Interpreted by Me EKG Comments: 12-lead Electrocardiogram Interpretation Note EKG was reviewed and interpreted by myself. 12-lead ECG performed at 1347 is interpreted by me as revealing normal sinus rhythm at a rate of 86 beats per minute. [place] is normal. GA interval is 193 ms, QRS duration is 86 ms, QTc is 416 ms.. There were no ST or T wave abnormalities to suggest myocardial ische monse or injury. R wave progression across the precordium was satisfactory. By my interpretation this EKG is non-diagnostic for acute ischemia. Good amount of baseline artifact. Disposition Clinical Impression: Weakness, UTI (urinary tract infection) Disposition: ADMITTED IP TO THIS HOSP Condition: Stable Is patient prescribed a controlled substance at d/c from ED?: No Referrals: Heber Martinez DO [Primary Care Provider] - 1-2 days Time of Disposition: 14:35
--- NOTE | 2023-10-26 14:45 | XR ---
EXAMINATION TYPE: XR chest 2V DATE OF EXAM: 10/26/2023 COMPARISON: 04/15/2023 HISTORY: 77-year-old male with weakness TECHNIQUE: AP and lateral views FINDINGS: The heart is enlarged. Hazy densities related to overlying soft tissue. The lung bases are underpenet rated and not well assessed. No effusion on the lateral view. IMPRESSION: Portable exam further limited by large body habitus. There is mild cardiomegaly. Lung bases are under penetrated and not well assessed.
[2023-10-26] MEDS: CEFEPIME 2 GM in SODIUM CHLORIDE 0.9% 100 ML IVPB SCH (15:49)
[2023-10-26 16:28] LABS: Bacteria,Urine Occasional /hpf; Mucus,Urine Many /hpf; RBC,Urine 41 /hpf (0-5); Squamous Epithelial Cell,Urine 23 /hpf (0-4); WBC,Urine >182 /hpf (0-5)
[2023-10-26 16:49] LABS: Appearance,Urine Turbid (Clear); Bilirubin,Urine Negative (Negative); Blood,Urine Small (Negative); Color,Urine Yellow; Glucose,Urine (UA) Negative (Negative); Ketones,Urine 2+ (Negative); Leukocyte Esterase,Urine Large (Negative); Nitrite,Urine Positive (Negative); Protein,Urine 2+ (Negative); Urobilinogen,Urine <2.0 mg/dL (<2.0)
--- NOTE | 2023-10-26 18:45 | P.HPIM ---
History of Present Illness H&P Date: 10/26/23 Chief Complaint: generalized weakness 77-year-old male with medical history of hypertension, urinary retention requiring frequent straight cath, obesity class III, restless leg syndrome, chronic systolic heart failure with ejection fraction 40 to 45% presented for evaluation of generalized weakness. Patient says that he has been having trouble ambulating due to lower extremity weakness over quite some time, but this has gotten significantly worse over the past week. He lives at home with his and daughter, who he says were unable to help him with transfers, prompting him to come to the emergency room for further evaluation. Yesterday, he was in the emergency room and was found to have a likely urinary tract infection, and was started on cephalexin. He does report some suprapubic pain. But he denies fevers, chills. In the emergency room, patient was afebrile, 134/65, heart rate 80, 95% on room air. CBC was remarkable for leukocytosis to 14.4. Basic metabolic panel showed sodium of 134. Liver function tests were unremarkable. TSH was 0.613. UA from this ER visit was contaminated, prior ER visit UA was reviewed which did demonstrate large leukocyte esterase, small amount of blood, 1+ ketones, 1+ protein, greater than 182 white blood cells, white blood cell clumps were present, many bacteria. Influenza A, B, RSV, COVID were negative. EKG shows low QRS voltage throughout, left axis deviation. Chest x-ray demonstrates low lung volumes, cardiomegaly, pulmonary vascular congestion and a reticular pattern consistent with volume overload. 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 All Systems reviewed and pertinent positives and negatives noted in HPI, all other symptoms are negative Gen: in no apparent distress, resting comfortably in bed Eyes: PERRL, no scleral injection or icterus HENT: normocephalic, atraumatic, good hearing acuity, moist mucous membranes Neck: no tracheal deviation, full range of motion Resp: Diminished air exchange, breathing comfortably with no accessory muscle use, no tactile fremitus CVS: good distal perfusion x 4, bilateral pitting edema, quiet precordium GI: soft, NTTP, ND, no hepatosplenomegaly : no suprapubic tenderness, no CVAT, roy catheter is present MSK: no clubbing, no cyanosis, no noted contractures of extremities Skin: no noted rashes, petechiae; temperature of skin is appropriate Neuro: moving all extremities without signs of weakness, CN II-XII intact Psych: cooperative, euthymic mood, insight and judgment intact Labs and imaging as above Assessment/plan: Generalized weakness Complicated urinary tract infection -Patient was admitted to observation for generalized weakness -Monitor on telemetry -cefepime 1g q8h -f/u UCx -PT/OT Volume overload Cardiomegaly History of systolic heart failure with an ejection fraction of 40 to 45%, septal hypokinesis, and severe left concentric hypertrophy Low QRS voltage on EKG -initiate lasix 40mg IV daily -strict I/Os, daily weights -low QRS voltage + severe LVH - FLC/SPEP/UPEP to screen for amyloidosis -cardiology consult -repeat echo Urinary retention requiring straight cath -maintain roy catheter Obesity Class III Candidal Cellulitis in the suprapubic area -nystatin powder -weight loss referral outpatient Hypertension -home meds reviewed and reconciled Pt is Full Code Past Medical History Past Medical History: Eye Disorder, GERD/Reflux, Hypertension, Osteoarthritis (OA), Prostate Disorder, Renal Disease, Skin Disorder, Sleep Apnea/CPAP/BIPAP Additional Past Medical History / Comment(s): PRE-CA SKIN LESIONS; BACK PAIN; HX RT RENAL CALCULUS, cellulitis of the lower legs with chronic venous stasis,benign prostatic hypertrophy, obstructive sleep apnea no CPAP, chronic back pain secondary to degenerative disc disease,macular degeneration, circumcision has catheter bag History of Any Multi-Drug Resistant Organisms: MRSA Date of last positivie culture/infection: 2014 MDRO Source:: finger Past Surgical History: Joint Replacement, Orthopedic Surgery, Prostate Surgery Additional Past Surgical History / Comment(s): 06/30/18 CYSTOSCOPY REMOVAL OF BLADDER CALCULI AND W/ LT URETERAL STENT INSERTION,LT TOTAL KNEE; RT KNEE MAKOPLASTY; ABD LIPOMA REMOVED; RT RENAL CALCULUS LITHOTRIPSY, RT URETERAL STENT, TURP; bilateral cataract removal with lens implants,circumcision Past Anesthesia/Blood Transfusion Reactions: No Reported Reaction Past Psychological History: No Psychological Hx Reported Smoking Status: Former smoker Past Alcohol Use History: Rare Past Drug Use History: None Reported - Past Family History Father Family Medical History: Cancer Additional Family Medical History / Comment(s): Grandfather had heart attack, father at 67 Medications and Allergies Home Medications Medication Instructions Recorded Confirmed Type Aspirin 325 mg PO DAILY 10/28/13 10/26/23 History Doxazosin [Cardura] 8 mg PO HS 10/28/13 10/26/23 History Multivitamins, Thera [Multivitamin 1 tab PO DAILY 10/28/13 10/26/23 History (formulary)] modafiniL [Provigil] 300 mg PO DAILY 10/11/14 10/26/23 History Cholecalciferol [Vitamin D3 (25 50 mcg PO DAILY 05/29/21 10/26/23 History Mcg = 1000 Iu)] Turmeric Root Extract [Turmeric] 500 mg PO DAILY 05/29/21 10/26/23 History Cephalexin [Keflex] 500 mg PO Q8HR #21 cap 10/26/23 10/26/23 Rx Coffee Xt/Phosphatidyl Serine 1 cap PO DAILY 10/26/23 10/26/23 History [Neuriva Original 100-100Mg Cap] Ginkgo Biloba [place] Extract [Ginkgo 125 mg PO DAILY 10/26/23 10/26/23 History Biloba] Hydrocortisone Cream 1 applic TOPICAL BID PRN 10/26/23 10/26/23 History [Hydrocortisone 2.5% Cream] Ketoconazole 2% Cream [Nizoral 2%] 1 applic TOPICAL BID PRN 10/26/23 10/26/23 History Losartan [Cozaar] 25 mg PO DAILY 10/26/23 10/26/23 History Spironolactone [Aldactone] 25 mg PO DAILY 10/26/23 10/26/23 History Allergies Allergy/AdvReac Type Severity Reaction Status Date / Time No Known Allergies Allergy Verified 10/26/23 13:58 Physical Exam Osteopathic Statement: *. No significant issues noted on an osteopathic structural exam other than those noted in the History and Physical/Consult. Vitals: Vital Signs Temp Pulse Resp BP Pulse Ox 10/26/23 15:54 98.4 F 82 18 136/78 96 10/26/23 12:34 99.6 F 86 18 143/74 95 Intake and Output 10/26/23 10/26/23 10/26/23 06:59 14:59 22:59 Other: Weight 135.171 kg Results CBC & Chem 7: 10/26/23 13:27 10/26/23 13:27 Labs: Abnormal Lab Results - Last 24 Hours (Table) 10/26/23 10/26/23 10/26/23 Range/Units 13:27 13:27 14:55 WBC 14.4 H (3.8-10.6) k/uL RBC 4.17 L (4.30-5.90) m/uL MCV 100.2 H (80.0-100.0) fL Neutrophils # 12.8 H (1.3-7.7) k/uL Lymphocytes # 0.4 L (1.0-4.8) k/uL Sodium 134 L (137-145) mmol/L Creatinine 0.61 L (0.66-1.25) mg/dL Glucose 115 H (74-99) mg/dL Calcium 8.3 L (8.4-10.2) mg/dL Total Protein 5.8 L (6.3-8.2) g/dL Albumin 3.4 L (3.5-5.0) g/dL Urine Protein 2+ H (Negative) Urine Ketones 2+ H (Negative) Urine Blood Small H (Negative) Ur Leukocyte Esterase Large H (Negative) Urine RBC 41 H (0-5) /hpf Urine WBC >182 H (0-5) /hpf Urine WBC Clumps Many H (None) /hpf Ur Squamous Epith Cells 23 H (0-4) /hpf Urine Bacteria Occasional H (None) /hpf Urine Mucus Many H (None) /hpf
[2023-10-26] MEDS: DOXAZOSIN 4 MG TAB PO SCH (20:55)
[2023-10-26] MEDS: LOPERAMIDE 2 MG CAP PO STA (20:55)
[2023-10-26] MEDS: NYSTATIN 100,000 UNIT/GM POWD 15 GM TOPICAL SCH (20:59)
[2023-10-26] MEDS: HEPARIN SODIUM,PORCINE 5,000 UNIT/ML 1 ML VIAL SQ SCH (21:00)
[2023-10-26] MEDS: FUROSEMIDE 10 MG/ML 4 ML VIAL IV SCH (21:01)
[2023-10-27] MEDS: ACETAMINOPHEN TAB 325 MG TAB PO PRN (00:20)
[2023-10-27] MEDS: ASPIRIN 325 MG TAB PO SCH (08:41)
[2023-10-27] MEDS: CHOLECALCIFEROL 25 MCG (1000 IU) TABLET PO SCH (08:41)
[2023-10-27] MEDS: LOSARTAN 25 MG TAB PO SCH (08:41)
[2023-10-27] MEDS: SPIRONOLACTONE 25 MG TAB PO SCH (08:41)
[2023-10-27] MEDS: MULTIVITAMINS, THERA 1 EACH TAB PO SCH (08:41)
[2023-10-27 08:50] LABS: Basophils # (A) 0.06 X 10*3/uL (0.00-0.10); Basophils % (A) 0.4 %; Eosinophils # (A) 0.17 X 10*3/uL (0.04-0.35); Eosinophils % (A) 1.3 %; HCT 36.7 % (39.6-50.0); HGB 12.3 g/dL (13.0-17.0); Lymphocytes % (A) 8.1 %; MCH 32.5 pg (27.0-32.0); MCHC 33.5 g/dL (32.0-37.0); MCV 97.1 FL (80.0-97.0); Monocytes # (A) 1.48 X 10*3/uL (0.20-1.00); NRBC Per 100 WBC 0 X 10*3/uL (0.00-0.01); Neutrophils # (A) 10.59 X 10*3/uL (1.80-7.70); Neutrophils % (A) 78.5 %; Platelet Count 237 X 10*3/uL (140-440); RBC 3.78 X 10*6/uL (4.40-5.60); RDW 13.4 % (11.5-14.5)
[2023-10-27 09:28] LABS: Blood Urea Nitrogen 13.2 mg/dL (9.0-27.0); Carbon Dioxide 23.8 mmol/L (21.6-31.8); Chloride 101 mmol/L (96-109); Glucose 103 mg/dL (70-110); Magnesium 1.7 mg/dL (1.5-2.4); Potassium 3.4 mmol/L (3.5-5.5); Sodium 136 mmol/L (135-145)
[2023-10-27 09:29] LABS: ALT 14 U/L (10-49); AST 17 U/L (14-35); Albumin 3.4 g/dL (3.8-4.9); Albumin/Globulin Ratio 2.12 Ratio (1.60-3.17); Alkaline Phosphatase 57 U/L (41-126); Bilirubin, Conjugated <0.20 mg/dL (0.20-0.40); Bilirubin,Unconjugated >0.20 mg/dL (0.20-1.00); Calcium 7.8 mg/dL (8.7-10.3); Globulin 1.6 g/dL (1.6-3.3); Total Bilirubin 0.4 mg/dL (0.3-1.2)
[2023-10-27] MEDS: modafiniL 100 MG TAB PO SCH (11:14)
--- NOTE | 2023-10-27 12:45 | P.PN ---
Subjective Progress Note Date: 10/27/23 77-year-old male with medical history of hypertension, urinary retention requiring frequent straight cath, obesity class III, restless leg syndrome, chronic systolic heart failure with ejection fraction 40 to 45% presented for evaluation of generalized weakness. Patient says that he has been having troub le ambulating due to lower extremity weakness over quite some time, but this has gotten significantly worse over the past week. He lives at home with his and daughter, who he says were unable to help him with transfers, prompting him to come to the emergency room for further evaluation. Yesterday, he was in the emergency room and was found to have a likely urinary tract infection, and was s tarted on cephalexin. He does report some suprapubic pain. But he denies fevers, chills. In the emergency room, patient was afebrile, 134/65, heart rate 80, 95% on room air. CBC was remarkable for leukocytosis to 14.4. Basic metabolic panel showed sodium of 134. Liver function tests were unremarkable. TSH was 0.613. UA from this ER visit was contaminated, prior ER visit UA was reviewed which did demonstrate large leukocyte esterase, small amount of blood, 1+ ketones, 1+ protein, greater than 182 white blood cells, white blood cell clumps were present, many bacteria. Influenza A, B, RSV, COVID were negative. EKG shows low QRS voltage throughout, left axis deviation. Chest x-ray demonstrates low lung volumes, cardiomegaly, pulmonary vascular congestion and a reticular pattern consistent with volume overload. 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 Patient was started on Rocephin for treatment of UTI. 10/26 Patient was seen and examined. He reports profound weakness. RN reports black stools. Patient reports diarrhea ongoing for many months. Maintained on Rocephin and Lasix IV. CBC WBC 13.5, Hg 12.3, Hct 36.7, MCV 97.1. BMP K 3.4, 7.8, total protein 5, alb 3.4. General: non toxic, no distress, appears at stated age Derm: warm, dry Head: atraumatic, normocephalic, symmetric Eyes: EOMI, no lid lag, anicteric sclera Mouth: no lip lesion, mucus membranes moist Cardiovascular: S1S2 reg, no murmur Lungs: CTA bilateral, no rhonchi, no rales , no accessory muscle use Abd: Non tender to palpation Ext: no gross muscle atrophy, no edema, no contractures Neuro: no focal neuro deficits Psych: Alert, oriented, appropriate affect Generalized weakness: Fall precautions. PT OT consult. Complicated urinary tract infection: Cefepime 1g IV TID. Follow UCx. Follow BCx. Melena: Obtain stool occult blood. Monitor Hg. Volume overload: Lasix 40 mg IV QD. Daily weights. Strict intake and outtake. Obtain Echo. Cardiomegaly History of systolic heart failure with an ejection fraction of 40 to 45%, septal hypokinesis, and severe left concentric hypertrophy Low QRS voltage on EKG: FLC/SPEP/UPEP to screen for amyloidosis Urinary retention requiring straight cath: Maintain roy catheter. Doxazosin 8 mg PO QHS. Outpatient Urology. Obesity Class III: Structed weight loss program. Candidal Cellulitis in the suprapubic area: Nystatin powder CODE STATUS: FULL CODE DVT Prophylaxis: Heparin SQ GI Prophylaxis: Designated medical POA if patient is not able to make medical decisions for themselves: I have reviewed the following product management consultant notes: I have reviewed the results of the following tests: CBC, BMP. I have ordered the following tests: Echo I have discussed the care of this patient with the following independent historian: RN I have independently interpreted the following test below: I have discussed the management of this patient with the following physician: Objective - Vital Signs Vital signs: Vital Signs Temp 98.2 F 10/27/23 09:42 Pulse 66 10/27/23 09:42 Resp 16 10/27/23 09:42 BP 118/64 10/27/23 09:42 Pulse Ox 94 L 10/27/23 06:00 FiO2 Intake & Output 10/26/23 10/27/23 10/27/23 18:59 06:59 18:59 Weight 135.171 kg Other: Voiding Method Indwelling Catheter - Labs CBC & Chem 7: 10/27/23 06:19 10/27/23 06:19 Labs: Abnormal Lab Results - Last 24 Hours (Table) 10/26/23 10/26/23 10/26/23 Range/Units 13:27 13:27 14:55 WBC 14.4 H (3.8-10.6) k/uL RBC 4.17 L (4.30-5.90) m/uL Hgb (13.0-17.0) g/dL Hct (39.6-50.0) % MCV 100.2 H (80.0-100.0) fL MCH (27.0-32.0) pg Immature Gran # (0.00-0.04) X 10*3/uL Neutrophils # 12.8 H (1.3-7.7) k/uL Lymphocytes # 0.4 L (1.0-4.8) k/uL Monocytes # (0.20-1.00) X 10*3/uL Sodium 134 L (137-145) mmol/L Potassium (3.5-5.5) mmol/L Creatinine 0.61 L (0.66-1.25) mg/dL Glucose 115 H (74-99) mg/dL Calcium 8.3 L (8.4-10.2) mg/dL Total Protein 5.8 L (6.3-8.2) g/dL Total Protein (PEP) (6.2-8.2) g/dL Albumin 3.4 L (3.5-5.0) g/dL Urine Protein 2+ H (Negative) Urine Ketones 2+ H (Negative) Urine Blood Small H (Negative) Ur Leukocyte Esterase Large H (Negative) Urine RBC 41 H (0-5) /hpf Urine WBC >182 H (0-5) /hpf Urine WBC Clumps Many H (None) /hpf Ur Squamous Epith Cells 23 H (0-4) /hpf Urine Bacteria Occasional H (None) /hpf Urine Mucus Many H (None) /hpf 10/27/23 10/27/23 10/27/23 Range/Units 06:19 06:19 06:19 WBC 13.50 H (3.8-10.6) k/uL RBC 3.78 L (4.30-5.90) m/uL Hgb 12.3 L (13.0-17.0) g/dL Hct 36.7 L (39.6-50.0) % MCV 97.1 H (80.0-100.0) fL MCH 32.5 H (27.0-32.0) pg Immature Gran # 0.10 H (0.00-0.04) X 10*3/uL Neutrophils # 10.59 H (1.3-7.7) k/uL Lymphocytes # (1.0-4.8) k/uL Monocytes # 1.48 H (0.20-1.00) X 10*3/uL Sodium (137-145) mmol/L Potassium 3.4 L (3.5-5.5) mmol/L Creatinine (0.66-1.25) mg/dL Glucose (74-99) mg/dL Calcium 7.8 L (8.4-10.2) mg/dL Total Protein 5.0 L (6.3-8.2) g/dL Total Protein (PEP) 5.0 L (6.2-8.2) g/dL Albumin 3.4 L (3.5-5.0) g/dL Urine Protein (Negative) Urine Ketones (Negative) Urine Blood (Negative) Ur Leukocyte Esterase (Negative) Urine RBC (0-5) /hpf Urine WBC (0-5) /hpf Urine WBC Clumps (None) /hpf Ur Squamous Epith Cells (0-4) /hpf Urine Bacteria (None) /hpf Urine Mucus (None) /hpf
[2023-10-27] MEDS: POTASSIUM CHLORIDE ER 20 MEQ TAB.ER PO STA (13:49)
[2023-10-27] MEDS: LOPERAMIDE 2 MG CAP PO PRN (15:36)
[2023-10-27 15:49] LABS: Free Kappa Lt Chain Qnt, Urine 6.17 mg/dL (0.00-3.29); Free Lambda Lt Chain Qt, Urine 0.68 mg/dL (0.00-0.38)
[2023-10-27 15:49] LABS: Free Kappa Lt Chain Qnt, Serum 2.06 mg/dL (0.33-1.94); Free Lambda Lt Chain Qnt, Seru 1.63 mg/dL (0.57-2.63)
[2023-10-28] MEDS ORDERED: ZINC OXIDE PASTE (Z-GUARD) 1 APPLIC TOPICAL PRN (10:20)
--- NOTE | 2023-10-28 10:38 | P.PN ---
Subjective Progress Note Date: 10/28/23 77-year-old male with medical history of hypertension, urinary retention requiring frequent straight cath, obesity class III, restless leg syndrome, chronic systolic heart failure with ejection fraction 40 to 45% presented for evaluation of generalized weakness. Patient says that he has been having troub le ambulating due to lower extremity weakness over quite some time, but this has gotten significantly worse over the past week. He lives at home with his and daughter, who he says were unable to help him with transfers, prompting him to come to the emergency room for further evaluation. Yesterday, he was in the emergency room and was found to have a likely urinary tract infection, and was s tarted on cephalexin. He does report some suprapubic pain. But he denies fevers, chills. In the emergency room, patient was afebrile, 134/65, heart rate 80, 95% on room air. CBC was remarkable for leukocytosis to 14.4. Basic metabolic panel showed sodium of 134. Liver function tests were unremarkable. TSH was 0.613. UA from this ER visit was contaminated, prior ER visit UA was reviewed which did demonstrate large leukocyte esterase, small amount of blood, 1+ ketones, 1+ protein, greater than 182 white blood cells, white blood cell clumps were present, many bacteria. Influenza A, B, RSV, COVID were negative. EKG shows low QRS voltage throughout, left axis deviation. Chest x-ray demonstrates low lung volumes, cardiomegaly, pulmonary vascular congestion and a reticular pattern consistent with volume overload. 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 Patient was started on Cefepime for treatment of UTI. UCx gram negative bacilli. 10/26 Patient was seen and examined. He reports profound weakness. RN reports black stools. Patient reports diarrhea ongoing for many months. Maintained on Cefepime and Lasix IV. CBC WBC 13.5, Hg 12.3, Hct 36.7, MCV 97.1. BMP K 3.4, 7.8, total protein 5, alb 3.4. 10/27 Patient was seen and examined. He continues to feel weak. Nursing reports continued diarrhea which patient has been experiencing for months. Stool occult negative, Immodium is ordered. UCx gram negative bacilli. BCx prelim negative so far. Urine free [place] 6.17 Urine free Lambda 0.68. Maintained on Lasix 40 mg IV QD. Echo is pending. CBC shows WBC 13.5 Hg 12.3, Hct 36.7, MCV 97.1. BMP K 3.4, Ca 7.8, total protein 5, alb 3.4. PT recommending SNF. General: non toxic, no distress, appears at stated age Derm: warm, dry Head: atraumatic, normocephalic, symmetric Eyes: EOMI, no lid lag, anicteric sclera Mouth: no lip lesion, mucus membranes moist Cardiovascular: S1S2 reg, no murmur Lungs: CTA bilateral, no rhonchi, no rales , no accessory muscle use Abd: Non tender to palpation Ext: no gross muscle atrophy, no edema, no contractures Neuro: no focal neuro deficits Psych: Alert, oriented, appropriate affect Generalized weakness: Fall precautions. PT OT consult. Needs SNF. Sepsis due to complicated urinary tract infection: Leukocytosis, tachycardia, fever, + source of infection. Cefepime 1g IV TID. Follow UCx. Follow BCx. Diarrhea: Obtain stool occult blood negative. Imodium PRN for diarrhea. Outpatient C-scope. Volume overload: Lasix 40 mg IV QD. Monitor electrolytes while on Lasix. Daily weights. Strict intake and outtake. Obtain Echo. Cardiomegaly: History of systolic heart failure with an ejection fraction of 40 to 45%, septal hypokinesis, and severe left concentric hypertrophy Low QRS voltage on EKG: FLC/SPEP/UPEP to screen for amyloidosis Urinary retention requiring straight cath: Maintain roy catheter. Doxazosin 8 mg PO QHS. Outpatient Urology. Obesity Class III: Structed weight loss program. Candidal Cellulitis in the suprapubic area: Nystatin powder CODE STATUS: FULL CODE DVT Prophylaxis: Heparin SQ GI Prophylaxis: Designated medical POA if patient is not able to make medical decisions for themselves: I have reviewed the following railroad design consultant notes: I have reviewed the results of the following tests: UCx. BCx. Urine and serum [place]/Lambda, CBC, BMP. I have ordered the following tests: Echo pending. I have discussed the care of this patient with the following independent historian: I have independently interpreted the following test below: I have discussed the management of this patient with the following physician: Objective - Vital Signs Vital signs: Vital Signs Temp 98 F 10/28/23 01:50 Pulse 84 10/28/23 01:50 Resp 18 10/28/23 01:50 BP 105/67 10/28/23 01:50 Pulse Ox 93 L 10/28/23 01:50 FiO2 Intake & Output 10/27/23 10/27/23 10/28/23 06:59 18:59 06:59 Output Total 500 Balance -500 Weight 135.171 kg Output: Urine 500 Other: Voiding Method Indwelling Catheter # Bowel Movements 5 1 - Labs CBC & Chem 7: 10/27/23 06:19 10/27/23 06:19 Labs: Abnormal Lab Results - Last 24 Hours (Table) 10/27/23 10/27/23 10/27/23 Range/Units 06:19 06:19 06:19 WBC 13.50 H (4.50-10.00) X 10*3/uL RBC 3.78 L (4.40-5.60) X 10*6/uL Hgb 12.3 L (13.0-17.0) g/dL Hct 36.7 L (39.6-50.0) % MCV 97.1 H (80.0-97.0) FL MCH 32.5 H (27.0-32.0) pg Immature Gran # 0.10 H (0.00-0.04) X 10*3/uL Neutrophils # 10.59 H (1.80-7.70) X 10*3/uL Monocytes # 1.48 H (0.20-1.00) X 10*3/uL Potassium 3.4 L (3.5-5.5) mmol/L Calcium 7.8 L (8.7-10.3) mg/dL Total Protein 5.0 L (6.2-8.2) g/dL Total Protein (PEP) 5.0 L (6.2-8.2) g/dL Albumin 3.4 L (3.8-4.9) g/dL U Free [place] Light Ch (0.00-3.29) mg/dL U Free Lambda Light Ch (0.00-0.38) mg/dL Free [place] LC, Quant 2.06 H (0.33-1.94) mg/dL 10/27/23 Range/Units 06:26 WBC (4.50-10.00) X 10*3/uL RBC (4.40-5.60) X 10*6/uL Hgb (13.0-17.0) g/dL Hct (39.6-50.0) % MCV (80.0-97.0) FL MCH (27.0-32.0) pg Immature Gran # (0.00-0.04) X 10*3/uL Neutrophils # (1.80-7.70) X 10*3/uL Monocytes # (0.20-1.00) X 10*3/uL Potassium (3.5-5.5) mmol/L Calcium (8.7-10.3) mg/dL Total Protein (6.2-8.2) g/dL Total Protein (PEP) (6.2-8.2) g/dL Albumin (3.8-4.9) g/dL U Free [place] Light Ch 6.17 H (0.00-3.29) mg/dL U Free Lambda Light Ch 0.68 H (0.00-0.38) mg/dL Free [place] LC, Quant (0.33-1.94) mg/dL Microbiology - Last 24 Hours (Table) 10/26/23 13:28 Blood Culture - Preliminary Blood 10/26/23 13:20 Blood Culture - Preliminary Blood 10/26/23 14:55 Urine Culture - Preliminary Urine,Voided Gram Neg Bacilli
[2023-10-28 10:42] LABS: HCT 39.5 % (39.0-53.0); HGB 12.8 gm/dL (13.0-17.5); MCH 32.4 pg (25.0-35.0); MCHC 32.5 g/dL (31.0-37.0); MCV 99.5 fL (80.0-100.0); Mean Platelet Volume 8.2; Platelet Count 230 k/uL (150-450); RBC 3.97 m/uL (4.30-5.90); RDW 13.4 % (11.5-15.5); WBC 14.3 k/uL (3.8-10.6)
[2023-10-28 11:01] LABS: African American GFR (CKD) >90 (>60 ml/min/1.73 sqM); Anion Gap 6 mmol/L; Blood Urea Nitrogen 19 mg/dL (9-20); Calcium 7.6 mg/dL (8.4-10.2); Carbon Dioxide 24 mmol/L (22-30); Chloride 100 mmol/L (98-107); Glucose 123 mg/dL (74-99); Non-African American GFR(CKD) >90 (>60 ml/min/1.73 sqM); Potassium 3.3 mmol/L (3.5-5.1); Sodium 130 mmol/L (137-145)
[2023-10-28 18:17] LABS: Albumin 2.9 g/dL (3.80-4.90); Gamma Globulin 0.52 g/dL (0.70-1.50)
--- NOTE | 2023-10-28 20:00 | CA ---
Transthoracic Echo Report Name: Daniel Keene Age: 77 Gender: M : 1945 Exam Date: 10/27/2023 14:59 Exam Location: [facility] Echo Ht (in): 63 Wt (lb): 298 Ordering Physician: Goldie Turpin MD Attending/Referring Phys: State Comptroller Mary Johnson RDCS Procedure CPT: Indications: chf Cardiac Hx: Technical Quality: Fair Contrast 1: Total Dose (mL): Contrast 2: Total Dose (mL): MEASUREMENTS (Male / Female) Normal Values 2D ECHO LV Diastolic Diameter PLAX 5.6 cm 4.2 - 5.9 / 3.9 - 5.3 cm LV Systolic Diameter PLAX 3.2 cm IVS Diastolic Thickness 1.2 cm 0.6 - 1.0 / 0.6 - 0.9 cm LVPW Diastolic Thickness 1.3 cm 0.6 - 1.0 / 0.6 - 0.9 cm LV Relative Wall Thickness 0.4 M-MODE Aortic Root Diameter MM 4.1 cm LA Systolic Diameter MM 4.0 cm LA Ao Ratio MM 1.0 DOPPLER AV Peak Velocity 125.9 cm/s AV Peak Gradient 6.3 mmHg AV Mean Velocity 89.8 cm/s AV Mean Gradient 3.6 mmHg AV Velocity Time Integral 24.6 cm LVOT Peak Velocity 92.9 cm/s LVOT Peak Gradient 3.5 mmHg LVOT Velocity Time Integral 19.6 cm Mitral E Point Velocity 74.2 cm/s Mitral A Point Velocity 88.5 cm/s Mitral E to A Ratio 0.8 MV Deceleration Time 282.6 ms TR Peak Velocity 224.4 cm/s TR Peak Gradient 20.1 mmHg Right Ventricular Systolic Press 25.3 mmHg FINDINGS Left Ventricle Mildly increased left ventricular wall thickness. Left ventricular cavity size normal. No obvious regional wall motion abnormalities. Left ventricular ejection fraction is estimated at 55 %. Grade 1 diastolic dysfunction. Right Ventricle Mild right ventricular dilatation. Right ventricular systolic pressure within normal limits. Right Atrium Right atrial dilatation. Left Atrium Normal left atrial size. Mitral Valve Structurally normal mitral valve. Mild mitral annular calcification. Trace mitral regurgitation. Aortic Valve No aortic valve stenosis or regurgitation. Tricuspid Valve Structurally normal tricuspid valve. Mild tricuspid regurgitation. Pulmonic Valve Structurally normal pulmonic valve. Trace pulmonic regurgitation. Pericardium No pericardial effusion. Aorta Normal size aortic root and proximal ascending aorta. CONCLUSIONS Study for interpretation. Poorly visualized endocardial an intracardiac valves Normal LV systolic function Previewed by: Dr. Rod Ceballos MD (Electronically Signed) Final Date: 28 Oct 2023 19:59
[2023-10-29 04:27] LABS: HCT 40.5 % (39.0-53.0); HGB 13.5 gm/dL (13.0-17.5); MCH 32.7 pg (25.0-35.0); MCHC 33.3 g/dL (31.0-37.0); MCV 98.2 fL (80.0-100.0); Mean Platelet Volume 7.9; Platelet Count 252 k/uL (150-450); RBC 4.12 m/uL (4.30-5.90); RDW 13.7 % (11.5-15.5); WBC 24.7 k/uL (3.8-10.6)
[2023-10-29 04:41] LABS: African American GFR (CKD) >90 (>60 ml/min/1.73 sqM); Anion Gap 9 mmol/L; Blood Urea Nitrogen 27 mg/dL (9-20); Calcium 7.7 mg/dL (8.4-10.2); Carbon Dioxide 20 mmol/L (22-30); Chloride 99 mmol/L (98-107); Glucose 114 mg/dL (74-99); Non-African American GFR(CKD) 89 (>60 ml/min/1.73 sqM); Potassium 3.4 mmol/L (3.5-5.1); Sodium 128 mmol/L (137-145)
[2023-10-29] MEDS: VANCOMYCIN ORAL SOLUTION 250 MG/5 ML BOTTLE PO SCH ×2 (13:53→23:44)
[2023-10-29] MEDS: POTASSIUM CHLORIDE ER 20 MEQ TAB.ER PO STA (16:56)
[2023-10-29] MEDS: SODIUM CHLORIDE 0.9% 1,000 ML IV SCH (17:11)
--- NOTE | 2023-10-29 17:16 | P.PN ---
Subjective Progress Note Date: 10/29/23 Hospital course: Patient is a pleasant 77-year-old male with a past medical history of congestive systolic heart failure with previously known EF of 40 to 45%, hypertension, GERD, obstructive sleep apnea, BPH requiring frequent straight catheterizations and at times Garcia catheter, chronic back pain with bilateral lower extremity neuropathies and restless legs, macular degeneration, and bilateral cataract removal with lens implants. He presented to the emergency department on 10/26/2023 with a chief complaint of generalized weakness. Upon arrival to our facility patient underwent evaluation. Vital signs in the emergency department show blood pressure 143/74, heart rate 86, respiratory rate 18, temp 99.6, and SpO2 of 95% on room air, shortly after arrival temp elevated as high as 101.3 F. EKG completed showing sinus mechanism at 86 bpm. Chest x-ray completed showing mild cardiomegaly with overall hazy densities related to overlying soft tissue/body habitus. Labs completed and reviewed. CBC showing leukocytosis with WBC count of 14.4 and macrocytosis with MCV of 100.2. BMP showing hyponatremia with sodium of 134 otherwise normal findings. Lactic acid was 1.3. Magnesium 1.8. Liver profile unremarkable. Urinalysis contaminated specimen but appears positive for infection, urine kappa light 6.17 and urine free lambda light 0.68. Free kappa LC quant was 2.06. Influenza A, influenza B, RSV, and COVID were negative. Patient was started on IV antibiotics with Rocephin admitted under our services for acute cystitis and generalized weakness. Echocardiogram was completed showing preserved EF of 55% and mildly increased left ventricular wall thickness. Urine culture positive for Pseudomonas aeruginosa. Blood culture showing no growth to date. C. difficile positive. Physical exam: Patient seen and fully evaluated at bedside this morning. He reports persistent diarrhea worsening over the past 48 hours. Patient states approximately 2 episodes of diarrhea or more per hour. States liquid and mucousy. C. difficile results are positive. Patient reports tolerating oral intake and denies having any nausea or vomiting at this time. Vital signs reviewed and stable. General: Nontoxic, no distress and appears stated age. Obese. Derm: Skin warm and dry, normal coloration for ethnicity. Head: Atraumatic, normocephalic and symmetric. Eyes: EOMs intact, no lid lag, and anicteric sclera Mouth: no lip lesions, mucus membranes moist Cardiovascular: regular rate and rhythm with normal S1S2, no murmur, positive posterior tibial pulses bilaterally, and cap refill < 2 seconds. Lungs: Respirations even, regular, and unlabored on room air. Lungs diminished, no rhonchi, no rales, no wheezing, and no accessory muscle usage. Abdominal: Obese abdomen soft, nontender to palpation, no guarding, no appreciable organomegaly. Garcia catheter in place. Ext: ROM intact. No gross muscle atrophy, no edema, no contractures Neuro: Speech clear, face symmetrical and CN II-XII grossly intact with no noted focal neuro deficits Psych: Alert and oriented to person, place, time, and situation. Appropriate and pleasant affect. Assessment and Plan of Care: Pseudomonas aeruginosa UTI, associated with chronic Garcia catheter use C. difficile Infection Sepsis upon arrival, secondary to above Generalized weakness, likely secondary to above Severe leukocytosis Hyponatremia, secondary to fluid volume depletion Hypokalemia, secondary to diarrhea resulting from C. difficile infection -Urine culture positive for Pseudomonas aeruginosa. Per culture and sensitivity report, patient to continue cefepime 2 g every 8 hours. -C. difficile was positive. Patient started on oral vancomycin 125 mg every 6 hours. -Consult placed to infectious disease secondary to Pseudomonas aeruginosa need for current antibiotics with current acute C. difficile infection. -Hold Lasix and Aldactone secondary to reports of significant watery diarrhea and need for IV hydration. -Order placed for fecal management system and strict I's and O's. -Blood cultures showing no growth to date. -Patient hyponatremic with sodium of 128, secondary to severe diarrhea resulting from current C. difficile infection -Hyponatremia with sodium of 3.4, orders placed for K-Dur 40 mEq p.o. x 1 dose. -Continue doxazosin 8 mg nightly for BPH with chronic urinary output obstruction. -PT/OT following secondary to generalized weakness recommending inpatient rehab Chronic systolic heart failure with previously known EF of 40 to 45% Hypertension -Echocardiogram was completed and report reviewed now showing preserved EF of 55% and mildly increased left ventricular wall thickness. -Will need to hold Lasix and Aldactone secondary to severe diarrhea, reported 2 episodes or more per hour and patient's need for gentle IV fluid hydration. -Patient to otherwise continue aspirin 325 mg daily and losartan 25 mg daily. Elevated light chains Low QRS voltage on EKG Urine kappa light 6.17 and urine free lambda light 0.68. Free kappa LC quant was 2.06. Consult placed to hematology for evaluation Obstructive sleep apnea Continue CPAP nightly and while napping. Morbid obesity, class III with BMI 52.8 kg/m -Recommend outpatient structured weight management program. Data and imaging reviewed: Echocardiogram was completed showing preserved EF of 55% and mildly increased left ventricular wall thickness. Urine culture positive for Pseudomonas aeruginosa. Blood culture showing no growth to date. Morning labs reviewed. CBC showing leukocytosis with WBC count of 24.7. BMP showing hyponatremia with sodium of 128, hypokalemia with potassium of 3.4, hypocarbia with bicarb of 20, and prerenal azotemia with BUN of 27. Vital signs reviewed. Blood pressure 103/65, heart rate 88, respiratory rate 17, temp 98.6 F, and SpO2 of 94% on room air. Prognosis is guarded at this time CODE STATUS: Full code DVT prophylaxis: Heparin Anticipated discharge date: Clinical course to determine Anticipated discharge place: Clinical course to determine Patient was seen independently by Nurse Pracitioner. This document was prepared using [employer]an[employer] dictation software. Please allow for errors in screen print operator, while rare they do occur. Devante Oleary NP rendered care for this patient independently, reviewed the findings and plan as documented in the note above. I did not physically speak with or examine the patient on this date. Objective - Vital Signs Vital signs: Vital Signs Temp 98.6 F 10/29/23 07:21 Pulse 88 10/29/23 07:21 Resp 17 10/29/23 07:21 BP 103/65 10/29/23 07:21 Pulse Ox 94 L 10/29/23 07:21 FiO2 Intake & Output 10/28/23 10/29/23 10/29/23 18:59 06:59 18:59 Output Total 1600 500 Balance -1600 -500 Output: Urine 1600 500 Other: Voiding Method Indwelling Catheter Indwelling Catheter # Bowel Movements 1 3 - Labs CBC & Chem 7: 10/29/23 04:14 10/29/23 04:14 Labs: Abnormal Lab Results - Last 24 Hours (Table) 10/27/23 10/28/23 10/28/23 Range/Units 06:19 09:45 09:45 WBC 14.3 H (3.8-10.6) k/uL RBC 3.97 L (4.30-5.90) m/uL Hgb 12.8 L (13.0-17.5) gm/dL Sodium 130 L (137-145) mmol/L Potassium 3.3 L (3.5-5.1) mmol/L Carbon Dioxide (22-30) mmol/L BUN (9-20) mg/dL Creatinine 0.63 L (0.66-1.25) mg/dL Glucose 123 H (74-99) mg/dL Calcium 7.6 L (8.4-10.2) mg/dL Albumin (PEP) 2.90 L (3.80-4.90) g/dL Gamma Globulins 0.52 L (0.70-1.50) g/dL 10/29/23 10/29/23 Range/Units 04:14 04:14 WBC 24.7 H (3.8-10.6) k/uL RBC 4.12 L (4.30-5.90) m/uL Hgb (13.0-17.5) gm/dL Sodium 128 L (137-145) mmol/L Potassium 3.4 L (3.5-5.1) mmol/L Carbon Dioxide 20 L (22-30) mmol/L BUN 27 H (9-20) mg/dL Creatinine (0.66-1.25) mg/dL Glucose 114 H (74-99) mg/dL Calcium 7.7 L (8.4-10.2) mg/dL Albumin (PEP) (3.80-4.90) g/dL Gamma Globulins (0.70-1.50) g/dL Microbiology - Last 24 Hours (Table) 10/26/23 14:55 Urine Culture - Final Urine,Voided Pseudomonas aeruginosa 10/26/23 13:28 Blood Culture - Preliminary Blood 10/26/23 13:20 Blood Culture - Preliminary Blood
--- NOTE | 2023-10-29 23:06 | P.CONS ---
History of Present Illness - Reason for Consult Consult date: 10/29/23 Pseudomonas UTI and C. difficile Requesting physician: Devante Oleary - Chief Complaint Weakness and diarrhea x few days - History of Present Illness Patient is a 77-year-old male with a past medical history significant for hypertension osteoarthritis sleep apnea reflux patient did have a BPH and self catheterize himself because of urine retention patient presented to the hospital 3 days ago for evaluation of weakness apparently the patient mention that his legs gave out and will support his body denies any fall or injury to the head and no loss of consciousness patient also complaining of diarrhea that has been going on for about 3 weeks with multiple loose stools patient denies any blood or mucus in the stool has been complaining of some sharp abdominal pain moderate intensity without radiation did have some nausea but no vomiting patient mention that his urine is slightly cloudy but not too concerning to him and no suprapubic pain and no hematuria patient on presentation to the hospital was febrile with a temperature of 101 F and is currently running a low-grade fever of 99.1 patient was not tachycardic or hypotensive and not hypoxic no need for supplemental oxygen patient did have vital of 14,000 admission that is up to 24.7 creatinine 0.63 potassium slightly low liver enzymes are normal he did have a positive UA influenza RSV COVID testing was negative urine culture has been finalized with Pseudomonas aeruginosa and the patient has been treated with the cefepime stool for C. difficile was sent which came back positive for prompting this infectious disease consultation Review of Systems Positive point and negatives has been mentioned in the HPI, complete review of systems was performed and all other systems are negative Past Medical History Past Medical History: Eye Disorder, GERD/Reflux, Hypertension, Osteoarthritis (OA), Prostate Disorder, Renal Disease, Skin Disorder, Sleep Apnea/CPAP/BIPAP Additional Past Medical History / Comment(s): PRE-CA SKIN LESIONS; BACK PAIN; HX RT RENAL CALCULUS, cellulitis of the lower legs with chronic venous stasis,benign prostatic hypertrophy, obstructive sleep apnea no CPAP, chronic back pain secondary to degenerative disc disease,macular degeneration, circumcision has catheter bag History of Any Multi-Drug Resistant Organisms: None Reported, MRSA Year Discovered:: 2014 MDRO Source:: finger Past Surgical History: Joint Replacement, Orthopedic Surgery, Prostate Surgery Additional Past Surgical History / Comment(s): 06/30/18 CYSTOSCOPY REMOVAL OF BLADDER CALCULI AND W/ LT URETERAL STENT INSERTION,LT TOTAL KNEE; RT KNEE MAKOPLASTY; ABD LIPOMA REMOVED; RT RENAL CALCULUS LITHOTRIPSY, RT URETERAL STENT, TURP; bilateral cataract removal with lens implants,circumcision Past Anesthesia/Blood Transfusion Reactions: No Reported Reaction Past Psychological History: No Psychological Hx Reported Smoking Status: Former smoker Past Alcohol Use History: Rare Additional Past Alcohol Use History / Comment(s): Patient was a smoker and quit in 1988. Past Drug Use History: None Reported - Past Family History Father Family Medical History: Cancer Additional Family Medical History / Comment(s): Grandfather had heart attack, father at 67 Medications and Allergies Home Medications Medication Instructions Recorded Confirmed Type Aspirin 325 mg PO DAILY 10/28/13 10/26/23 History Doxazosin [Cardura] 8 mg PO HS 10/28/13 10/26/23 History Multivitamins, Thera [Multivitamin 1 tab PO DAILY 10/28/13 10/26/23 History (formulary)] Cholecalciferol [Vitamin D3 (25 50 mcg PO DAILY 05/29/21 10/26/23 History Mcg = 1000 Iu)] Losartan [Cozaar] 25 mg PO DAILY 10/26/23 10/26/23 History Acetaminophen Tab [Tylenol] 650 mg PO Q6HR PRN tab 11/25/23 Rx Cholestyramine (with Sugar) 4 gm PO BID@1000,2100 #0 packet 11/25/23 Rx [Questran Packet] Potassium Chloride ER [K-Dur 20] 20 meq PO DAILY tab 11/25/23 Rx Torsemide [Demadex] 40 mg PO DAILY tab 11/25/23 Rx modafiniL [Provigil] 300 mg PO DAILY #1 tab 11/25/23 Rx Allergies Allergy/AdvReac Type Severity Reaction Status Date / Time No Known Allergies Allergy Verified 10/26/23 13:58 Physical Exam Vitals: Vital Signs Temp Pulse Pulse Resp BP Pulse Ox 10/29/23 07:21 98.6 F 88 17 103/65 94 L 10/29/23 02:00 90 17 100/73 93 L 10/28/23 19:47 99.4 F 91 15 101/64 94 L 10/28/23 18:00 99.3 F 84 19 107/67 96 10/28/23 14:45 99.1 F 86 19 105/66 94 L Intake and Output 10/28/23 10/29/23 10/29/23 22:59 06:59 14:59 Output Total 600 500 Balance -600 -500 Output: Urine 600 500 Other: Voiding Method Indwelling Catheter Indwelling Catheter # Bowel Movements 1 3 1 GENERAL DESCRIPTION: Elderly male lying in bed, no distress. No tachypnea or accessory muscle of respiration use. HEENT: Shows Pallor , no scleral icterus. Oral mucous membrane is dry. No pharyngeal erythema or thrush NECK: Trachea central, no thyromegaly. LUNGS: Unlabored breathing. Clear to auscultation anteriorly. No wheeze or crackle. HEART: S1, S2, regular rate and rhythm. No loud murmur ABDOMEN: Mild distention and tenderness, no guarding or rigidity, no organomegaly EXTREMITIES: no edema of feet. SKIN: No rash, no masses palpable. NEUROLOGICAL: The patient is awake, alert, oriented x3, mood and affect normal. Results CBC & Chem 7: 11/25/23 05:15 11/25/23 05:15 Labs: Abnormal Lab Results - Last 24 Hours (Table) 10/27/23 10/29/23 10/29/23 Range/Units 06:19 04:14 04:14 WBC 24.7 H (3.8-10.6) k/uL RBC 4.12 L (4.30-5.90) m/uL Sodium 128 L (137-145) mmol/L Potassium 3.4 L (3.5-5.1) mmol/L Carbon Dioxide 20 L (22-30) mmol/L BUN 27 H (9-20) mg/dL Glucose 114 H (74-99) mg/dL Calcium 7.7 L (8.4-10.2) mg/dL Albumin (PEP) 2.90 L (3.80-4.90) g/dL Gamma Globulins 0.52 L (0.70-1.50) g/dL C. difficile (EIA) Intrp (Negative) 10/29/23 Range/Units 10:00 WBC (3.8-10.6) k/uL RBC (4.30-5.90) m/uL Sodium (137-145) mmol/L Potassium (3.5-5.1) mmol/L Carbon Dioxide (22-30) mmol/L BUN (9-20) mg/dL Glucose (74-99) mg/dL Calcium (8.4-10.2) mg/dL Albumin (PEP) (3.80-4.90) g/dL Gamma Globulins (0.70-1.50) g/dL C. difficile (EIA) Intrp Positive A (Negative) Microbiology - Last 24 Hours (Table) 10/26/23 14:55 Urine Culture - Final Urine,Voided Pseudomonas aeruginosa 10/26/23 13:28 Blood Culture - Preliminary Blood 10/26/23 13:20 Blood Culture - Preliminary Blood Assessment and Plan (1) C. difficile colitis Status: Acute Priority: Medium Code(s): A04.72 - ENTEROCOLITIS D/T CLOSTRIDIUM DIFFICILE, NOT SPCF RECUR SNOMED Code(s): 870602755 (2) Sepsis Status: Acute Code(s): A41.9 - SEPSIS, UNSPECIFIED ORGANISM SNOMED Code(s): 50202419 (3) Urinary tract infection Status: Acute Priority: Medium Code(s): N39.0 - URINARY TRACT INFECTION, SITE NOT SPECIFIED SNOMED Code(s): 25252828 Plan: 1patient with a complicated history and this patient initially presented to the hospital with sepsis as the patient did have a fever elevated white count source likely UTI with urine culture finalized with Pseudomonas aeruginosa patient clinical condition no complicated by positive stool for C. difficile and worsening of the white count even though the patient did have diarrhea on admission and more likely did have C. difficile colitis on presentation 2-patient to continue with the cefepime however we will try to limit antibiotic exposure to the minimum possible for the UTI 3-I will increase the dose of vancomycin to 500 mg p.o. every 6 hours keeping in mind concerning for extensive cellulitis and continuous antibiotic exposure Contact isolation We will follow on clinical condition and cultures to further adjust medication if needed Thank you for this consultation we will follow the patient along with you Dictation was produced using [email or web address] dictation software. please excuse any grammatical, word or spelling errors. Time with Patient: Greater than 30
[2023-10-30] MEDS: HYDROcodone/APAP 5-325MG 1 EACH TAB PO STA (01:27)
[2023-10-30 10:41] LABS: HCT 39.9 % (39.6-50.0); HGB 13.2 g/dL (13.0-17.0); MCH 32.6 pg (27.0-32.0); MCHC 33.1 g/dL (32.0-37.0); MCV 98.5 FL (80.0-97.0); NRBC Per 100 WBC 0.03 X 10*3/uL (0.00-0.01); Platelet Count 259 X 10*3/uL (140-440); RBC 4.05 X 10*6/uL (4.40-5.60); RDW 13.4 % (11.5-14.5); WBC 38.95 X 10*3/uL (4.50-10.00)
[2023-10-30 11:04] LABS: Magnesium 1.9 mg/dL (1.5-2.4)
[2023-10-30 11:09] LABS: ALT 13 U/L (10-49); AST 24 U/L (14-35); Albumin 2.5 g/dL (3.8-4.9); Albumin/Globulin Ratio 1.47 Ratio (1.60-3.17); Alkaline Phosphatase 75 U/L (41-126); BUN/Creat Ratio 28.53 Ratio (12.00-20.00); Blood Urea Nitrogen 42.8 mg/dL (9.0-27.0); Calcium 7.7 mg/dL (8.7-10.3); Carbon Dioxide 17.8 mmol/L (21.6-31.8); Chloride 96 mmol/L (96-109); Globulin 1.7 g/dL (1.6-3.3); Glucose 122 mg/dL (70-110); Potassium 3.9 mmol/L (3.5-5.5); Sodium 128 mmol/L (135-145); Total Bilirubin 0.3 mg/dL (0.3-1.2); Total Protein 4.2 g/dL (6.2-8.2)
[2023-10-30] MEDS: CHOLESTYRAMINE (WITH SUGAR) 4 GM PACKET PO SCH (13:26)
--- NOTE | 2023-10-30 16:25 | P.PN ---
Subjective Progress Note Date: 10/30/23 Hospital course: Patient is a pleasant 77-year-old male with a past medical history of congestive systolic heart failure with previously known EF of 40 to 45%, hypertension, GERD, obstructive sleep apnea, BPH requiring frequent straight catheterizations and at times Garcia catheter, chronic back pain with bilateral lower extremity neuropathies and restless legs, macular degeneration, and bilateral cataract removal with lens implants. He presented to the emergency department on 10/26/2023 with a chief complaint of generalized weakness. Upon arrival to our facility patient underwent evaluation. Vital signs in the emergency department show blood pressure 143/74, heart rate 86, respiratory rate 18, temp 99.6, and SpO2 of 95% on room air, shortly after arrival temp elevated as high as 101.3 F. EKG completed showing sinus mechanism at 86 bpm. Chest x-ray completed showing mild cardiomegaly with overall hazy densities related to overlying soft tissue/body habitus. Labs completed and reviewed. CBC showing leukocytosis with WBC count of 14.4 and macrocytosis with MCV of 100.2. BMP showing hyponatremia with sodium of 134 otherwise normal findings. Lactic acid was 1.3. Magnesium 1.8. Liver profile unremarkable. Urinalysis contaminated specimen but appears positive for infection, urine kappa light 6.17 and urine free lambda light 0.68. Free kappa LC quant was 2.06. Influenza A, influenza B, RSV, and COVID were negative. Patient was started on IV antibiotics with Rocephin admitted under our services for acute cystitis and generalized weakness. Echocardiogram was completed showing preserved EF of 55% and mildly increased left ventricular wall thickness. Urine culture positive for Pseudomonas aeruginosa. Blood culture showing no growth to date. C. difficile positive. Physical exam: Patient seen and fully evaluated at bedside this morning. He reports continued weakness and overall fatigue. Garcia catheter and fecal management system remain in place. Patient continues with liquid stools. Blood pressures running soft. Patient denies dizziness, lightheadedness, chest pain, palpitations, or shortness of breath. He continues to deny having abdominal pain and/or discomfort at this time. Vital signs reviewed and stable. General: Nontoxic, no distress and appears stated age. Obese. Derm: Skin warm and dry, normal coloration for ethnicity. Head: Atraumatic, normocephalic and symmetric. Eyes: EOMs intact, no lid lag, and anicteric sclera Mouth: no lip lesions, mucus membranes moist Cardiovascular: regular rate and rhythm with normal S1S2, no murmur, positive posterior tibial pulses bilaterally, and cap refill < 2 seconds. Lungs: Respirations even, regular, and unlabored on room air. Lungs diminished, no rhonchi, no rales, no wheezing, and no accessory muscle usage. Abdominal: Obese abdomen soft, nontender to palpation, no guarding, no appreciable organomegaly. Garcia catheter in place. Fecal management system in place with liquid stool in tubing and collection chamber. Ext: ROM intact. No gross muscle atrophy, no edema, no contractures Neuro: Speech clear, face symmetrical and CN II-XII grossly intact with no noted focal neuro deficits Psych: Alert and oriented to person, place, time, and situation. Appropriate and pleasant affect. Assessment and Plan of Care: Pseudomonas aeruginosa UTI, associated with chronic Garcia catheter use C. difficile Infection Acute kidney injury Sepsis upon arrival, secondary to above Severe leukocytosis Hyponatremia, secondary to fluid volume depletion resulting from persistent diarrhea Generalized weakness, likely secondary to above -Urine culture positive for Pseudomonas aeruginosa. Per culture and sensitivity report, patient to continue cefepime 2 g every 8 hours. -C. difficile was positive. Patient started on oral vancomycin 500 mg every 6 hours. -Consult placed to infectious disease secondary to Pseudomonas aeruginosa need for current antibiotics with current acute C. difficile infection. -Hold Lasix and Aldactone secondary to need for IV fluid hydration. -Losartan held secondary to hypotension and acute kidney injury -Continue Garcia catheter management and fecal management system with strict I's and O's. -Blood cultures showing no growth to date. -Patient hyponatremic with sodium of 128, secondary to dehydration/hypovolemia resulting from persistent diarrhea secondary to current C. difficile infection -Patient was started on cholestyramine 4 g twice daily. -Continue doxazosin 8 mg nightly for BPH with chronic urinary output ob struction. -PT/OT following secondary to generalized weakness recommending inpatient rehab Chronic systolic heart failure with previously known EF of 40 to 45% now improved to 55% Hypertension, history of hypertension now with hypotension -Repeat echocardiogram was completed and report reviewed now showing preserved EF of 55% and mildly increased left ventricular wall thickness. -Lasix, Aldactone, and losartan held at this time secondary to need for IV fluid hydration and hypotension. -Continue aspirin 325 mg daily. -Order placed for vital signs every 4 hours. Elevated light chains Low QRS voltage on EKG Urine kappa light 6.17 and urine free lambda light 0.68. Free kappa LC quant was 2.06. Consult placed to hematology for evaluation Obstructive sleep apnea Continue CPAP nightly and while napping. Morbid obesity, class III with BMI 52.8 kg/m -Recommend outpatient structured weight management program. Hypokalemia. Resolved. Data and imaging reviewed: Morning labs repeated showing worsening leukocytosis with WBC count increasing to 38.95, order placed for CT abdomen and pelvis to rule out toxic megacolon. BMP showing persistent hyponatremia with sodium of 128 and acute kidney injury with BUN of 42.8, creatinine 1.5, and GFR of 48. Urine culture positive for Pseudomonas aeruginosa. Blood cultures negative x 2. Vital signs reviewed. Blood pressure 93/82, heart rate 90, respiratory rate 17, temp 97.5 F, and SpO2 of 95% on room air. Temperature high over the past 24 hours was 99.1 F. Blood pressure soft throughout the night and morning with lowest blood pressure of 78/50. Antihypertensive medication discontinued and patient to continue with IV fluid hydration. Order placed for CT abdomen and pelvis without contrast, will follow-up on results once available. Prognosis is very guarded at this time CODE STATUS: Full code DVT prophylaxis: Heparin Anticipated discharge date: Clinical course to determine Anticipated discharge place: Clinical course to determine Patient was seen independently by Nurse Pracitioner. This document was prepared using [employer] dictation software. Please allow for errors in front maker lockstitch, while rare they do occur. Devante Oleary NP rendered care for this patient independently, reviewed the findings and plan as documented in the note above. I did not physically speak with or examine the patient on this date. CT abdomen and pelvis reviewed which demonstrates Brambila colitis with colon measuring up to 7.5 cm. Additionally there is a 1 cm stone at the right UPJ with possible early obstructive uropathy and an additional 1.4 cm nonobstructive right renal stone. Start Flagyl 500 mg IV piggyback every 8 hours in addition to the oral vancomycin that the patient has already been receiving. Case discussed with urology on-call and Devante Oleary. He is aware of the obstructive uropathy. Will resume cefepime secondary to the fact that obstructive uropathy may be contributing to sepsis as well given the Pseudomonas UTI and the stone. Possible cystoscopy with stent placement in a.m. Patient made NPO. Will transfer patient to [facility] for closer monitoring. Objective - Vital Signs Vital signs: Vital Signs Temp 97.6 F 10/30/23 07:29 Pulse 88 10/30/23 07:29 Resp 19 10/30/23 07:29 BP 78/50 10/30/23 07:29 Pulse Ox 95 10/30/23 07:29 FiO2 Intake & Output 10/29/23 10/30/23 10/30/23 18:59 06:59 18:59 Output Total 300 150 Balance -300 -150 Output: Urine 300 150 Other: Voiding Method Indwelling Catheter Indwelling Catheter # Voids 1 # Bowel Movements 1 - Labs CBC & Chem 7: 10/30/23 06:10 10/30/23 06:16 Labs: Abnormal Lab Results - Last 24 Hours (Table) 10/29/23 Range/Units 10:00 C. difficile (EIA) Intrp Positive A (Negative) Microbiology - Last 24 Hours (Table) 10/26/23 13:28 Blood Culture - Preliminary Blood 10/26/23 13:20 Blood Culture - Preliminary Blood
--- NOTE | 2023-10-30 16:34 | P.PN ---
Subjective Progress Note Date: 10/30/23 Principal diagnosis: Reason for follow-up is C. difficile colitis UTI and leukocytosis Patient is a 77-year-old male with a past medical history significant for hypertension osteoarthritis sleep apnea reflux patient did have a BPH and self catheterize himself because of urine retention, presented to hospital after a fall with weakness he did have a positive UA and has been treated for a UTI also has significant diarrhea stool for C. difficile came back positive pro mpting this consultation. On today's evaluation that is 10/30/2023,the patient remains to be afebrile, patient is on room air not requiring supplemental oxygen however complaining of some shortness of breath feeling weak denies any chest pain or worsening cough some abdominal discomfort he did have significant diarrhea requiring placement of a fecal management system. The patient white count is up to 38.95 creatinine is 1.5 Objective - Vital Signs Vital signs: Vital Signs Temp 97.6 F 10/30/23 07:29 Pulse 88 10/30/23 07:29 Resp 19 10/30/23 07:29 BP 78/50 10/30/23 07:29 Pulse Ox 95 10/30/23 07:29 FiO2 Intake & Output 10/29/23 10/30/23 10/30/23 18:59 06:59 18:59 Output Total 300 150 Balance -300 -150 Output: Urine 300 150 Other: Voiding Method Indwelling Catheter Indwelling Catheter Indwelling Catheter # Voids 1 # Bowel Movements 1 - Exam GENERAL DESCRIPTION: An elderly male lying in bed in no distress RESPIRATORY SYSTEM: Unlabored breathing , decreased breath sounds at bases HEART: S1 S2 regular rate and rhythm , ABDOMEN: Soft , mild tenderness EXTREMITIES: No edema feet - Labs CBC & Chem 7: 10/30/23 06:10 10/30/23 06:16 Labs: Abnormal Lab Results - Last 24 Hours (Table) 10/30/23 10/30/23 Range/Units 06:10 06:16 WBC 38.95 H (4.50-10.00) X 10*3/uL RBC 4.05 L (4.40-5.60) X 10*6/uL MCV 98.5 H (80.0-97.0) FL MCH 32.6 H (27.0-32.0) pg NRBC/100 WBC Diff 0.03 H (0.00-0.01) X 10*3/uL Sodium 128 L (135-145) mmol/L Carbon Dioxide 17.8 L (21.6-31.8) mmol/L Anion Gap 14.20 H (4.00-12.00) mmol/L BUN 42.8 H (9.0-27.0) mg/dL Est GFR (CKD-EPI) 48 L (>=60) BUN/Creatinine Ratio 28.53 H (12.00-20.00) Ratio Glucose 122 H (70-110) mg/dL Calcium 7.7 L (8.7-10.3) mg/dL Total Protein 4.2 L (6.2-8.2) g/dL Albumin 2.5 L (3.8-4.9) g/dL Albumin/Globulin Ratio 1.47 L (1.60-3.17) Ratio Microbiology - Last 24 Hours (Table) 10/26/23 13:28 Blood Culture - Preliminary Blood 10/26/23 13:20 Blood Culture - Preliminary Blood Assessment and Plan (1) C. difficile colitis Current Visit: Yes Status: Acute Code(s): A04.72 - ENTEROCOLITIS D/T CLOSTRIDIUM DIFFICILE, NOT SPCF RECUR SNOMED Code(s): 585264128 (2) Leukocytosis Current Visit: Yes Status: Acute Code(s): D72.829 - ELEVATED WHITE BLOOD CELL COUNT, UNSPECIFIED SNOMED Code(s): 976133142 (3) Urinary tract infection Current Visit: Yes Status: Acute Code(s): N39.0 - URINARY TRACT INFECTION, SITE NOT SPECIFIED SNOMED Code(s): 44572962 Plan: 1patient with a complicated history and this patient initially presented to the hospital with sepsis as the patient did have a fever elevated white count source likely UTI with urine culture finalized with Pseudomonas aeruginosa patient clinical condition no complicated by positive stool for C. difficile and worsening of the white count even though the patient did have diarrhea on admis susana and more likely did have C. difficile colitis 2-patient to continue with the cefepime however we will try to limit antibiotic exposure to the minimum possible for the UTI 3 patient to continue with the vancomycin 500 mg p.o. every 6 hours Questran has been negative for symptomatic relief and will watch his white count closely Dictation was produced using [employer] dictation software. please excuse any grammatical, word or spelling errors. Time with Patient: Less than 30
--- NOTE | 2023-10-30 18:00 | CT ---
EXAMINATION TYPE: CT abdomen pelvis wo con DATE OF EXAM: 10/30/2023 COMPARISON: 06/08/2019 HISTORY: 77-year-old male with pain, r/o toxic megacolon CT DLP: 2098.1 mGycm. Automated exposure control for dose reduction was used. TECHNIQUE: Contiguous axial scanning of the abdomen and pelvis without IV contrast. Coronal and sagit blanka reconstructions performed. FINDINGS: The heart is mildly enlarged. Small anterior pericardial effusion measuring 1 cm thick. Strandy atelectasis at the lung bases. Tiny calcified granuloma at the right base. Tiny hiatal hernia. A 8mm hypodensity lateral right liver lobe is unchanged suggesting a tiny cyst. No abnormal gallbladder distention. Adrenal glands, left kidney, spleen, and atrophic pancreas and no gross abnormality. 1.4 cm nonobstructive stone lower pole right kidney. There is a 1 cm stone at the right UPJ with new mild distention of the renal collecting system. No dilated small bowel or free air. Trace scattered free fluid. No mesenteric or retroperitoneal lymp hadenopathy. There is moderate to severe circumferential pancolonic wall thickening. Distention up to 7.5 cm. Rect al tube is present. Moderate sized fatty right and direct inguinal hernia. Garcia catheter in place. Intraluminal bladder air relating to the instrumentation. There is a 4.3 cm left bladder dome diverticulum. Prostate gland enlargement that 6.3 cm wide. Bones: Moderate to advanced degenerative disc disease mid to lower lumbar spine with hypertrophic fac et arthropathy. IMPRESSION: 1. Nonspecific severe pancolitis with colonic distention up to 7.5 cm. No obvious pneumatosis or raina e air seen at this time. 2. A 1 cm stone at the right UPJ may be contributing to an early obstructive uropathy. Additional 1. 4 cm nonobstructive right renal stone.
[2023-10-30] MEDS: metroNIDAZOLE-NS PMX 500 MG in SALINE 1 100ML.BAG IVPB SCH (20:50)
[2023-10-30] MEDS ORDERED: CEFEPIME 2 GM in SODIUM CHLORIDE 0.9% 100 ML IVPB SCH (21:00)
--- NOTE | 2023-10-30 21:46 | P.GSCN ---
History of Present Illness Consult date: 10/30/23 Reason for Consult: UTI, obstructing UPJ calculus Requesting physician: Cortney Medrano History of present illness: The patient is a 77-year-old white male well-known to me. He has chronic urinary retention, managed with intermittent catheterization. He has been treated for recurrent kidney stones, as well as recurrent UTIs. He was admitted earlier this week following a fall, which he attributes to generalized weakness. He also reports recent diarrhea. He has been diagnosed with C. difficile colitis, as well as a Pseudomonas UTI. His WBC count has been rising, and a CT scan earlier today shows evidence of right hydronephrosis due to a 1 cm right UPJ calculus. He denies flank pain. Review of Systems - Constitutional Denies chills, Denies fever - Gastrointestinal Reports diarrhea - Genitourinary Reports kidney stones, Denies flank pain, Denies hematuria Past Medical History Past Medical History: Eye Disorder, GERD/Reflux, Hypertension, Osteoarthritis (OA), Prostate Disorder, Renal Disease, Skin Disorder, Sleep Apnea/CPAP/BIPAP Additional Past Medical History / Comment(s): PRE-CA SKIN LESIONS; BACK PAIN; HX RT RENAL CALCULUS, cellulitis of the lower legs with chronic venous stasis,benign prostatic hypertrophy, obstructive sleep apnea no CPAP, chronic back pain secondary to degenerative disc disease,macular degeneration, circumcision has catheter bag History of Any Multi-Drug Resistant Organisms: None Reported, MRSA Year Discovered:: 2014 MDRO Source:: finger Past Surgical History: Joint Replacement, Orthopedic Surgery, Prostate Surgery Additional Past Surgical History / Comment(s): 06/30/18 CYSTOSCOPY REMOVAL OF BLADDER CALCULI AND W/ LT URETERAL STENT INSERTION,LT TOTAL KNEE; RT KNEE BILL PLASTY; ABD LIPOMA REMOVED; RT RENAL CALCULUS LITHOTRIPSY, RT URETERAL STENT, TURP; bilateral cataract removal with lens implants,circumcision Past Anesthesia/Blood Transfusion Reactions: No Reported Reaction Past Psychological History: No Psychological Hx Reported Smoking Status: Former smoker Past Alcohol Use History: Rare Additional Past Alcohol Use History / Comment(s): Patient was a smoker and quit in 1988. Past Drug Use History: None Reported - Past Family History Father Family Medical History: Cancer Additional Family Medical History / Comment(s): Grandfather had heart attack, father at 67 Medications and Allergies Home Medications Medication Instructions Recorded Confirmed Type Aspirin 325 mg PO DAILY 10/28/13 10/26/23 History Doxazosin [Cardura] 8 mg PO HS 10/28/13 10/26/23 History Multivitamins, Thera [Multivitamin 1 tab PO DAILY 10/28/13 10/26/23 History (formulary)] modafiniL [Provigil] 300 mg PO DAILY 10/11/14 10/26/23 History Cholecalciferol [Vitamin D3 (25 50 mcg PO DAILY 05/29/21 10/26/23 History Mcg = 1000 Iu)] Turmeric Root Extract [Turmeric] 500 mg PO DAILY 05/29/21 10/26/23 History Cephalexin [Keflex] 500 mg PO Q8HR #21 cap 10/26/23 10/26/23 Rx Coffee Xt/Phosphatidyl Serine 1 cap PO DAILY 10/26/23 10/26/23 History [Neuriva Original 100-100Mg Cap] Ginkgo Biloba [place] Extract [Ginkgo 125 mg PO DAILY 10/26/23 10/26/23 History Biloba] Hydrocortisone Cream 1 applic TOPICAL BID PRN 10/26/23 10/26/23 History [Hydrocortisone 2.5% Cream] Ketoconazole 2% Cream [Nizoral 2%] 1 applic TOPICAL BID PRN 10/26/23 10/26/23 History Losartan [Cozaar] 25 mg PO DAILY 10/26/23 10/26/23 History Spironolactone [Aldactone] 25 mg PO DAILY 10/26/23 10/26/23 History Allergies Allergy/AdvReac Type Severity Reaction Status Date / Time No Known Allergies Allergy Verified 10/26/23 13:58 Surgical - Exam Vital Signs Temp Pulse Resp BP Pulse Ox 99.6 F 86 18 143/74 95 10/26/23 12:34 10/26/23 12:34 10/26/23 12:34 10/26/23 12:34 10/26/23 12:34 - General well developed, well nourished, no distress - Respiratory normal respiratory effort - Abdomen Abdomen: soft, non tender, no guarding, no rigid, no rebound - Genitourinary normal penis with no external lesions, testicles non-tender - Psychiatric oriented to time, oriented to person, oriented to place, speech is normal, memory intact Results - Labs 10/30/23 06:10 10/30/23 06:16 Abnormal Lab Results - Last 24 Hours (Table) 10/30/23 10/30/23 Range/Units 06:10 06:16 WBC 38.95 H (4.50-10.00) X 10*3/uL RBC 4.05 L (4.40-5.60) X 10*6/uL MCV 98.5 H (80.0-97.0) FL MCH 32.6 H (27.0-32.0) pg NRBC/100 WBC Diff 0.03 H (0.00-0.01) X 10*3/uL Sodium 128 L (135-145) mmol/L Carbon Dioxide 17.8 L (21.6-31.8) mmol/L Anion Gap 14.20 H (4.00-12.00) mmol/L BUN 42.8 H (9.0-27.0) mg/dL Est GFR (CKD-EPI) 48 L (>=60) BUN/Creatinine Ratio 28.53 H (12.00-20.00) Ratio Glucose 122 H (70-110) mg/dL Calcium 7.7 L (8.7-10.3) mg/dL Total Protein 4.2 L (6.2-8.2) g/dL Albumin 2.5 L (3.8-4.9) g/dL Albumin/Globulin Ratio 1.47 L (1.60-3.17) Ratio Microbiology - Last 24 Hours (Table) 10/26/23 13:28 Blood Culture - Preliminary Blood 10/26/23 13:20 Blood Culture - Preliminary Blood Diabetes panel 10/30/23 Range/Units 06:16 Sodium 128 L (135-145) mmol/L Potassium 3.9 (3.5-5.5) mmol/L Chloride 96 (96-109) mmol/L Carbon Dioxide 17.8 L (21.6-31.8) mmol/L BUN 42.8 H (9.0-27.0) mg/dL Creatinine 1.5 (0.6-1.5) mg/dL Glucose 122 H (70-110) mg/dL Calcium 7.7 L (8.7-10.3) mg/dL AST 24 (14-35) U/L ALT 13 (10-49) U/L Alkaline Phosphatase 75 (41-126) U/L Total Protein 4.2 L (6.2-8.2) g/dL Albumin 2.5 L (3.8-4.9) g/dL Calcium panel 10/30/23 Range/Units 06:16 Calcium 7.7 L (8.7-10.3) mg/dL Albumin 2.5 L (3.8-4.9) g/dL Pituitary panel 10/30/23 Range/Units 06:16 Sodium 128 L (135-145) mmol/L Potassium 3.9 (3.5-5.5) mmol/L Chloride 96 (96-109) mmol/L Carbon Dioxide 17.8 L (21.6-31.8) mmol/L BUN 42.8 H (9.0-27.0) mg/dL Creatinine 1.5 (0.6-1.5) mg/dL Glucose 122 H (70-110) mg/dL Calcium 7.7 L (8.7-10.3) mg/dL Adrenal panel 10/30/23 Range/Units 06:16 Sodium 128 L (135-145) mmol/L Potassium 3.9 (3.5-5.5) mmol/L Chloride 96 (96-109) mmol/L Carbon Dioxide 17.8 L (21.6-31.8) mmol/L BUN 42.8 H (9.0-27.0) mg/dL Creatinine 1.5 (0.6-1.5) mg/dL Glucose 122 H (70-110) mg/dL Calcium 7.7 L (8.7-10.3) mg/dL Total Bilirubin 0.3 (0.3-1.2) mg/dL AST 24 (14-35) U/L ALT 13 (10-49) U/L Alkaline Phosphatase 75 (41-126) U/L Total Protein 4.2 L (6.2-8.2) g/dL Albumin 2.5 L (3.8-4.9) g/dL - Imaging CT scan - abdomen: report reviewed, image reviewed Assessment and Plan Assessment: The patient is currently receiving cefepime for his Pseudomonas UTI, along with oral vancomycin for C. difficile colitis. It is unclear which of these conditions is causing his WBC count to increase significantly. In addition to the leukocytosis, he has been hypotensive. (1) Acute pyelonephritis Current Visit: Yes Status: Acute Code(s): N10 - ACUTE PYELONEPHRITIS SNOMED Code(s): 86860645 (2) Calculus of kidney Current Visit: No Status: Acute Code(s): N20.0 - CALCULUS OF KIDNEY SNOMED Code(s): 18639924 (3) Hydronephrosis with renal and ureteral calculus obstruction Current Visit: No Status: Acute Code(s): N13.2 - HYDRONEPHROSIS WITH RENAL AND URETERAL CALCULOUS OBSTRUCTION SNOMED Code(s): 239894102 Plan: I have advised the patient to undergo cystoscopy with right ureteral stent insertion. He last ate 3 to 4 hours ago, which poses an increased risk of aspiration, and this was made clear to him. However, I believe the benefit of relieving the ureteral obstruction promptly via stent placement outweighs that risk. The patient is aware of other risks, which include bleeding, infection, ureteral injury, and inability to successfully place a stent. Time with Patient: Greater than 30
[2023-10-30] MEDS ORDERED: PHENYLEPHRINE 10 MG/ML VIAL ONE (21:47)
[2023-10-30] MEDS ORDERED: LIDOCAINE 1% INJ 10MG/ML (20 ML MDV) ONE (21:47)
[2023-10-30] MEDS ORDERED: SUCCINYLCHOLINE CHLORIDE 200 MG/10 ML VIAL IV ONE (21:47)
[2023-10-30] MEDS ORDERED: fentaNYL (PF) 50 MCG/ML 2 ML AMP ONE (21:47)
[2023-10-30] MEDS ORDERED: PROPOFOL 10 MG/ML 20 ML VIAL IV ONE (21:47)
[2023-10-30] MEDS: IV FLUID CONTINUATION 1,000 ML IV ONE (21:53)
--- NOTE | 2023-10-30 22:31 | P.OP ---
Date of Procedure: 10/30/23 Preoperative Diagnosis: Right hydronephrosis secondary to UPJ calculus Postoperative Diagnosis: Same Procedure(s) Performed: Cystoscopy, right ureteral stent insertion Anesthesia: HAYDERA Surgeon: Chance Joy Estimated Blood Loss (ml): 0 IV fluids (ml): 400 Pathology: none sent Condition: stable Disposition: PACU Indications for Procedure: The patient is a 77-year-old white male well-known to [facility]. He has chronic urinary retention, managed with intermittent catheterization. He has been treated for recurrent kidney stones, as well as recurrent UTIs. He was admitted earlier this week following a fall, which he attributes to generalized weakness. He also reports recent diarrhea. He has been diagnosed with C. difficile colitis, as well as a Pseudomonas UTI. His WBC count has been rising, and a CT scan earlier today shows evidence of right hydronephrosis due to a 1 cm right UPJ calculus. He denies flank pain. Operative Findings: Open prostatic fossa. 1.5 cm calculus located within the prostatic fossa. Successful right ureteral stent insertion. Description of Procedure: The patient was taken to the operating room and placed in the dorsolithotomy position, with legs supported in Lucas stirrups. The external genitalia was prepped and draped sterilely. The 30 lens was used to introduce the 22-Iranian Stortz cystoscopic sheath through the urethra and into the bladder under direct vision. The prostatic urethra showed evidence of prior TURP, and the prostatic fossa was open such that it appears as a cavity which extends slightly subtrigonal. Within the prostatic fossa is a calculus measuring approximately 1.5 cm in size. The bladder was examined in its entirety. Both ureteral orifices were of normal anatomic location and configuration. The bladder was moderately trabeculated with several small diverticuli. No tumors or foreign bodies were seen. A 0.035 inch Glidewire was passed through the cystoscope. The right ureteral orifice was cannulated, and the Glidewire was slowly advanced beyond the UPJ calculus and up to the renal pelvis. A 24 cm, 6-Iranian double-J ureteral stent was placed over the wire. Proper stent positioning was verified fluoroscopically and endoscopically. The cystoscope was removed. A 16 Iranian Garcia catheter was inserted. The patient tolerated the procedure well was taken to the recovery room in stable condition.
--- NOTE | 2023-10-31 00:29 | P.CONS ---
History of Present Illness - Reason for Consult Consult date: 10/29/23 elevated light chains Requesting physician: Devante Oleary - Chief Complaint weakness - History of Present Illness Patient is a 77 year old male with a significant history of Hypertension, Osteoarthritis, chronic venous stasis,benign prostatic hypertrophy, and obstructive sleep apnea no CPAP. Consult was placed for elevated kappa light chains. Patient presented to the emergency room with lower extremity weakness and diarrhea. Patient states his legs gave out and fell causing him to present to the emergency room for further evaluation. Patient being treated for Pseudo monas aeruginosa' UTI and C. difficile infection. Tmax 101.3. Blood cultures negative. Patient continues on IV antibiotics. Infectious disease following. CBC revealed leukocytosis with WBC 24.7, hemoglobin 13.5, platelets 252,000. Differential revealing mostly neutrophilia. Creatinine 0.78, GFR greater than 90. Paraproteinemia workup revealed kappa light chains mildly elevated at 2.06, lambda light chains 1.63, with normal ratio at 1.26. SPEP negative for M spike but reports difficult to exclude small paraprotein in the latter gamma region. Urine protein electrophoresis pending. Review of Systems 10 point ROS is negative except as stated in the HPI Past Medical History Past Medical History: Eye Disorder, GERD/Reflux, Hypertension, Osteoarthritis (OA), Prostate Disorder, Renal Disease, Skin Disorder, Sleep Apnea/CPAP/BIPAP Additional Past Medical History / Comment(s): PRE-CA SKIN LESIONS; BACK PAIN; HX RT RENAL CALCULUS, cellulitis of the lower legs with chronic venous stasis,benign prostatic hypertrophy, obstructive sleep apnea no CPAP, chronic back pain secondary to degenerative disc disease,macular degeneration, circumcision has catheter bag History of Any Multi-Drug Resistant Organisms: None Reported, MRSA Year Discovered:: 2014 MDRO Source:: finger Past Surgical History: Joint Replacement, Orthopedic Surgery, Prostate Surgery Additional Past Surgical History / Comment(s): 06/30/18 CYSTOSCOPY REMOVAL OF BLADDER CALCULI AND W/ LT URETERAL STENT INSERTION,LT TOTAL KNEE; RT KNEE MAKOPLASTY; ABD LIPOMA REMOVED; RT RENAL CALCULUS LITHOTRIPSY, RT URETERAL STENT, TURP; bilateral cataract removal with lens implants,circumcision Past Anesthesia/Blood Transfusion Reactions: No Reported Reaction Past Psychological History: No Psychological Hx Reported Smoking Status: Former smoker Past Alcohol Use History: Rare Additional Past Alcohol Use History / Comment(s): Patient was a smoker and quit in 1988. Past Drug Use History: None Reported - Past Family History Father Family Medical History: Cancer Additional Family Medical History / Comment(s): Grandfather had heart attack, father at 67 Medications and Allergies Home Medications Medication Instructions Recorded Confirmed Type Aspirin 325 mg PO DAILY 10/28/13 10/26/23 History Doxazosin [Cardura] 8 mg PO HS 10/28/13 10/26/23 History Multivitamins, Thera [Multivitamin 1 tab PO DAILY 10/28/13 10/26/23 History (formulary)] modafiniL [Provigil] 300 mg PO DAILY 10/11/14 10/26/23 History Cholecalciferol [Vitamin D3 (25 50 mcg PO DAILY 05/29/21 10/26/23 History Mcg = 1000 Iu)] Turmeric Root Extract [Turmeric] 500 mg PO DAILY 05/29/21 10/26/23 History Cephalexin [Keflex] 500 mg PO Q8HR #21 cap 10/26/23 10/26/23 Rx Coffee Xt/Phosphatidyl Serine 1 cap PO DAILY 10/26/23 10/26/23 History [Neuriva Original 100-100Mg Cap] Ginkgo Biloba Chical Extract [Ginkgo 125 mg PO DAILY 10/26/23 10/26/23 History Biloba] Hydrocortisone Cream 1 applic TOPICAL BID PRN 10/26/23 10/26/23 History [Hydrocortisone 2.5% Cream] Ketoconazole 2% Cream [Nizoral 2%] 1 applic TOPICAL BID PRN 10/26/23 10/26/23 History Losartan [Cozaar] 25 mg PO DAILY 10/26/23 10/26/23 History Spironolactone [Aldactone] 25 mg PO DAILY 10/26/23 10/26/23 History Allergies Allergy/AdvReac Type Severity Reaction Status Date / Time No Known Allergies Allergy Verified 10/26/23 13:58 Physical Exam Vitals: Vital Signs Temp Pulse Pulse Resp BP Pulse Ox 10/29/23 07:21 98.6 F 88 17 103/65 94 L 10/29/23 02:00 90 17 100/73 93 L 10/28/23 19:47 99.4 F 91 15 101/64 94 L 10/28/23 18:00 99.3 F 84 19 107/67 96 10/28/23 14:45 99.1 F 86 19 105/66 94 L Intake and Output 10/28/23 10/29/23 10/29/23 22:59 06:59 14:59 Output Total 600 500 Balance -600 -500 Output: Urine 600 500 Other: Voiding Method Indwelling Catheter Indwelling Catheter # Bowel Movements 1 3 1 - Constitutional General appearance: no acute distress, obese - EENT Eyes: anicteric sclerae, EOMI ENT: hearing grossly normal - Respiratory Respiratory: bilateral: diminished - Cardiovascular Rhythm: regular Heart sounds: normal: S1, S2 - Gastrointestinal General gastrointestinal: soft, no tenderness - Integumentary Integumentary: no cyanotic - Musculoskeletal Musculoskeletal: generalized weakness - Psychiatric Psychiatric: A&O x's 3 Results CBC & Chem 7: 10/30/23 06:10 10/30/23 06:16 Labs: Abnormal Lab Results - Last 24 Hours (Table) 10/27/23 10/29/23 10/29/23 Range/Units 06:19 04:14 04:14 WBC 24.7 H (3.8-10.6) k/uL RBC 4.12 L (4.30-5.90) m/uL Sodium 128 L (137-145) mmol/L Potassium 3.4 L (3.5-5.1) mmol/L Carbon Dioxide 20 L (22-30) mmol/L BUN 27 H (9-20) mg/dL Glucose 114 H (74-99) mg/dL Calcium 7.7 L (8.4-10.2) mg/dL Albumin (PEP) 2.90 L (3.80-4.90) g/dL Gamma Globulins 0.52 L (0.70-1.50) g/dL C. difficile (EIA) Intrp (Negative) 10/29/23 Range/Units 10:00 WBC (3.8-10.6) k/uL RBC (4.30-5.90) m/uL Sodium (137-145) mmol/L Potassium (3.5-5.1) mmol/L Carbon Dioxide (22-30) mmol/L BUN (9-20) mg/dL Glucose (74-99) mg/dL Calcium (8.4-10.2) mg/dL Albumin (PEP) (3.80-4.90) g/dL Gamma Globulins (0.70-1.50) g/dL C. difficile (EIA) Intrp Positive A (Negative) Microbiology - Last 24 Hours (Table) 10/26/23 14:55 Urine Culture - Final Urine,Voided Pseudomonas aeruginosa 10/26/23 13:28 Blood Culture - Preliminary Blood 10/26/23 13:20 Blood Culture - Preliminary Blood Assessment and Plan (1) Abnormal laboratory test Current Visit: Yes Status: Acute Priority: Medium Code(s): R89.9 - UNSP ABNORMAL FINDING IN SPECIMENS FROM OTH ORG/TISS SNOMED Code(s): 518650503 (2) C. difficile colitis Current Visit: Yes Status: Acute Priority: Medium Code(s): A04.72 - ENTEROCOLITIS D/T CLOSTRIDIUM DIFFICILE, NOT SPCF RECUR SNOMED Code(s): 217167739 (3) Leukocytosis Current Visit: Yes Status: Acute Priority: Medium Code(s): D72.829 - ELEVATED WHITE BLOOD CELL COUNT, UNSPECIFIED SNOMED Code(s): 454935022 (4) Urinary tract infection Current Visit: Yes Status: Acute Priority: Medium Code(s): N39.0 - URINARY TRACT INFECTION, SITE NOT SPECIFIED SNOMED Code(s): 78372163 Plan: UTI, c-diff: -Presented with lower extremity weakness and diarrhea. Patient states his legs gave out and fell causing him to present to the emergency room for further evaluation. Patient being treated for Pseudomonas aeruginosa UTI and C. difficile infection. Tmax 101.3. Blood cultures negative. Patient continues on IV antibiotics. -Defer management to ID and IM teams Elevated [place] light chains: -CBC revealed leukocytosis with WBC 24.7, hemoglobin 13.5, platelets 252,000. Differential revealing mostly neutrophilia. Leukocytosis r/t acute infection/inflammation -Paraproteinemia workup revealed kappa light chains mildly elevated at 2.06, lambda light chains 1.63, with normal ratio at 1.26. SPEP negative for M spike but reports difficult to exclude small paraprotein in the latter gamma region. Urine protein electrophoresis pending -These findings likely a normal variant -Will schedule cliinic f/u in 3 months and repeat paraproteinemia labs Discussed findings and POC with patient
[2023-10-31] MEDS: CEFEPIME 1 GM in SODIUM CHLORIDE 0.9% 50 ML IVPB SCH (01:26)
[2023-10-31 06:11] LABS: Glucose,Whole Blood 184 mg/dL (70-110)
[2023-10-31 08:06] LABS: HCT 41.6 % (39.0-53.0); HGB 13.7 gm/dL (13.0-17.5); MCH 32.8 pg (25.0-35.0); MCHC 32.9 g/dL (31.0-37.0); MCV 99.9 fL (80.0-100.0); Mean Platelet Volume 8.8; Platelet Count 276 k/uL (150-450); RBC 4.16 m/uL (4.30-5.90); RDW 13.8 % (11.5-15.5)
[2023-10-31 08:22] LABS: African American GFR (CKD) 59 (>60 ml/min/1.73 sqM); Anion Gap 7 mmol/L; Blood Urea Nitrogen 52 mg/dL (9-20); Calcium 7.7 mg/dL (8.4-10.2); Carbon Dioxide 18 mmol/L (22-30); Chloride 102 mmol/L (98-107); Glucose 135 mg/dL (74-99); Non-African American GFR(CKD) 51 (>60 ml/min/1.73 sqM); Potassium 3.8 mmol/L (3.5-5.1); Sodium 127 mmol/L (137-145)
[2023-10-31 08:24] LABS: WBC 65.5 k/uL (3.8-10.6)
[2023-10-31 08:54] LABS: Band Neutrophils % 16 %; Lymphocytes # (M) 1.97 k/uL (1.0-4.8); Metamyelocytes # (M) 3.28 k/uL (0); Metamyelocytes % 5 %; Monocytes # (M) 4.59 k/uL (0-1.0); Myelocytes # (M) 1.97 k/uL (0); Myelocytes % 3 %; Neutrophils % (M) 67 %; Nucleated Red Blood Cells 0 /100 WBC (0-0); Total Cells Counted 200
[2023-10-31 08:55] LABS: Toxic Granulation Present
--- NOTE | 2023-10-31 09:35 | FL ---
EXAMINATION TYPE: FL guidance operating room DATE OF EXAM: 10/30/2023 Comparison: None Clinical History: 77-year-old male STENT PLACEMENT Findings: RT ureteral stent insertion. 5 seccs fluoro[address] Joy DAP=2.3001 Gycm2
[2023-10-31] MEDS ORDERED: VANCOMYCIN 1,000 MG VIAL MISCELLANE ONE (09:43)
[2023-10-31] MEDS ORDERED: CEFEPIME 1 GM in SODIUM CHLORIDE 0.9% 50 ML IVPB SCH (10:00)
[2023-10-31] MEDS: CEFEPIME 2 GM in SODIUM CHLORIDE 0.9% 100 ML IVPB SCH (10:14)
[2023-10-31] MEDS: PANTOPRAZOLE 40 MG/10 ML VIAL IVP SCH (10:29)
--- NOTE | 2023-10-31 10:55 | P.PN ---
Subjective Progress Note Date: 10/31/23 77-year-old male with medical history of hypertension, urinary retention requiring frequent straight cath, obesity class III, restless leg syndrome, chronic systolic heart failure with ejection fraction 40 to 45% presented for evaluation of generalized weakness. Patient says that he has been having troub le ambulating due to lower extremity weakness over quite some time, but this has gotten significantly worse over the past week. He lives at home with his and daughter, who he says were unable to help him with transfers, prompting him to come to the emergency room for further evaluation. Yesterday, he was in the emergency room and was found to have a likely urinary tract infection, and was s tarted on cephalexin. He does report some suprapubic pain. But he denies fevers, chills. In the emergency room, patient was afebrile, 134/65, heart rate 80, 95% on room air. CBC was remarkable for leukocytosis to 14.4. Basic metabolic panel showed sodium of 134. Liver function tests were unremarkable. TSH was 0.613. UA from this ER visit was contaminated, prior ER visit UA was reviewed which did demonstrate large leukocyte esterase, small amount of blood, 1+ ketones, 1+ protein, greater than 182 white blood cells, white blood cell clumps were present, many bacteria. Influenza A, B, RSV, COVID were negative. EKG shows low QRS voltage throughout, left axis deviation. Chest x-ray demonstrates low lung volumes, cardiomegaly, pulmonary vascular congestion and a reticular pattern consistent with volume overload. 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 Patient was started on Cefepime for treatment of UTI. UCx came back with pseudomonas. RN noted melanotic stools. Stool occult blood negative. C. diff came back positive. Started on Flagyl IV and Vancomycin PO, ID consulted. CT AP ordered 10/29 showing severe pancolitis with colonic distention up to 7.5 cm, 1 cm right UPJ stone with early obstructive uropathy. Concerns for toxic megacolon, patient placed NPO, General surgery consulted. Urology consulted, underwent cystoscopy, right ureteral stent insertion on 10/29. 10/30 Patient was seen and examined. Patient appears lethargic and easily falling asleep. Maintained on Cefepime 1g IV TID (started 03/27 for pseudomonal UTI), Vancomycin 500 mg PO QID and Flagyl 500 mg IV TID (C. diff colitis). Currently NPO awaiting surgery consultation for toxic megacolon from C. diff. CBC shows WBC 65.6 RBC 4.16. BMP Na 127, bicarb 18, BUN 52, Cr 1.35, glu 135, Ca 7.7. Mag 2.0. The case was discussed with Dr. Ling and patient at bedside. Will attempt to avoid surgery as much as possible. Transfer to ICU. Start Fidaxomicin and Vancomycin enema. Continue IV hydration. Attempted to call Katalina ([phone]) multiple times went to voicemail. General: lethargic, no distress, appears at stated age, obese Derm: warm, dry Head: atraumatic, normocephalic, symmetric Eyes: EOMI, no lid lag, anicteric sclera Mouth: no lip lesion, mucus membranes moist Cardiovascular: S1S2 reg, no murmur Lungs: Decreased BS bilateral, no rhonchi, no rales , no accessory muscle use Abd: Obese. Tenderness to plapation in all 4 quadrants worse in the RLQ without rebound. Fecal management system in place. + Roy Ext: no gross muscle atrophy, no edema, no contractures Neuro: no focal neuro deficits Psych: Alert, oriented, appropriate affect Sepsis due to C. diff colitis and Pseudomonal UTI: Cefepime 1g IV TID (started 03/27 for pseudomonal UTI), Vancomycin 500 mg PO QID and Flagyl 500 mg IV TID (started 10/28 and 10/29 for C. diff colitis). Start Fidaxomicin 200 mg PO BID. Start Vancomycin enema 500 mg. BCx negative. NS at 100 cc/hr. ID on board. Toxic megacolon: Patient placed NPO. Surgery on board. Antibiotics to treat C. diff as above. ICU transfer for closer monitoring. KUB ordered. Hyponatremia, prerenal azotemia and AG metabolic acidosis likely related to severe diarrhea: Lactic acid 1.8. IV hydration as above. Diastolic CHF: EF 55% with G1DD. Lasix, Aldactone, and losartan held due to hypotension. Low QRS voltage on EKG: Urine kappa light 6.17 and urine free lambda light 0.68. Free kappa LC quant was 2.06. Hematology consulted, likely a normal variant. Hematology outpatient. Obstructive uropathy due to right UPJ stone: Status post cystoscopy, right ureteral stent insertion on 10/29. Maintain roy catheter. Doxazosin 8 mg PO QHS. Outpatient Urology. Obesity Class III: Structed weight loss program. Candidal Cellulitis in the suprapubic area: Nystatin powder Generalized weakness: Fall precautions. PT OT consult. Needs SNF. CODE STATUS: FULL CODE DVT Prophylaxis: Heparin SQ GI Prophylaxis: Protonix IV Designated medical POA if patient is not able to make medical decisions for themselves: I have reviewed the following valuation consultant notes: ID, Urology I have reviewed the results of the following tests: CBC, CMP, Mag I have ordered the following tests: CBC, CMP, Mag tomorrow. KUB I have discussed the care of this patient with the following independent historian: RN. I have independently interpreted the following test below: I have discussed the management of this patient with the following physician: Dr. Ling. Objective - Vital Signs Vital signs: Vital Signs Temp 97.9 F 10/31/23 04:00 Pulse 90 10/31/23 04:00 Resp 16 10/31/23 04:00 BP 103/63 10/31/23 04:00 Pulse Ox 95 10/31/23 04:00 FiO2 Intake & Output 10/30/23 10/31/23 10/31/23 18:59 06:59 18:59 Intake Total 800 Output Total 250 Balance 550 Intake: IV 800 Output: Urine 250 Other: Voiding Method Indwelling Catheter Indwelling Catheter - Labs CBC & Chem 7: 10/31/23 07:36 10/31/23 07:36 Labs: Abnormal Lab Results - Last 24 Hours (Table) 10/30/23 10/30/23 10/31/23 Range/Units 06:10 06:16 06:09 WBC 38.95 H (4.50-10.00) X 10*3/uL RBC 4.05 L (4.40-5.60) X 10*6/uL MCV 98.5 H (80.0-97.0) FL MCH 32.6 H (27.0-32.0) pg NRBC/100 WBC Diff 0.03 H (0.00-0.01) X 10*3/uL Sodium 128 L (135-145) mmol/L Carbon Dioxide 17.8 L (21.6-31.8) mmol/L Anion Gap 14.20 H (4.00-12.00) mmol/L BUN 42.8 H (9.0-27.0) mg/dL Est GFR (CKD-EPI) 48 L (>=60) BUN/Creatinine Ratio 28.53 H (12.00-20.00) Ratio Glucose 122 H (70-110) mg/dL POC Glucose (mg/dL) 184 H (70-110) mg/dL Calcium 7.7 L (8.7-10.3) mg/dL Total Protein 4.2 L (6.2-8.2) g/dL Albumin 2.5 L (3.8-4.9) g/dL Albumin/Globulin Ratio 1.47 L (1.60-3.17) Ratio
--- NOTE | 2023-10-31 11:32 | P.CNPUL ---
History of Present Illness Consult date: 10/31/23 Requesting physician: Quincy Ling Reason for consult: other (Abdominal sepsis) Chief complaint: Weakness History of present illness: This is a 77-year-old white male with history of hypertension, obesity, chronic urinary retention, chronic systolic congestive heart failure with ejection fraction of 40 to 45%, patient was admitted to the hospital on 10/26/2023, his chief complaint was mostly a complaint of generalized weakness. Patient has been noticing more difficulty ambulating due to profound weakness in his lower extremities over quite some time. Patient got to the point where he could not help himself with transfers. Brought into the ER, and the patient was found to have a urinary tract infection and he was treated with antibiotics/cephalosporins. Since then, the patient was seen by many consultants including infectious disease, urology, and now the patient is being seen by general surgery. He was also seen by oncology. Infectious disease felt that the patient presented with sepsis secondary to urinary tract infection and his urine cultures came back positive for Pseudomonas aeruginosa. Apparently the patient went on to develop C. difficile colitis, and he developed severe diarrhea. Patient was treated with oral vancomycin, but went on to develop worsening abdominal discomfort and diarrhea in spite of oral vancomycin, CT of the abdomen and pelvis done yesterday showed evidence of pancolitis with colonic distention up to 7.5 cm there was no evidence of free air. There was also evidence of 1 cm stone at the right UPJ junction. And the patient was felt to have possibly early obstructive uropathy. There was also another 1.4 cm nonobstructive right renal stone. Patient was seen by urology, and he underwent cystoscopy and right ureteral stent insertion. Today the patient was seen by general surgery on consultation, and became quite concerned about his colonic distention as the patient may be developing a toxic megacolon. Hence recommended transfer to the ICU. I did evaluate the patient on the floor, he is on room air, comfortable, blood pressure is soft, patient is not in any distress but he does seem to be a bit lethargic, and profoundly weak. Hence recommended that we monitor the patient in the ICU and I transferred the patient after my evaluation. Labs today showed significant leukocytosis/leukemoid reaction with WBC count of 65.5, hemoglobin 13.7. Sodium is a bit low at 127 BUN is 52 creatinine 1.35, bicarb is 18 anion gap is normal. Lactic acid yesterday was 1.8. Review of Systems REVIEW OF SYSTEMS: CONSTITUTIONAL: Weakness, seems to be getting worse over the last few weeks. EYES: Negative. ENT: Negative. CARDIAC: Negative. PULMONARY: As above. GI: As noted in HPI patient developed colitis/C. difficile colitis with diarrhea after get receiving antibiotics for UTI. GENITOURINARY: Urinary retention with symptoms of UTI requiring antibiotics MUSCULOSKELETAL: Weakness. SKIN: Negative. NEUROPSYCH: Patient is developing a picture of toxic metabolic encephalopathy. ENDOCRINE: Negative. HEMATOLOGIC: Negative. Past Medical History Past Medical History: Eye Disorder, GERD/Reflux, Hypertension, Osteoarthritis (OA), Prostate Disorder, Renal Disease, Skin Disorder, Sleep Apnea/CPAP/BIPAP Additional Past Medical History / Comment(s): PRE-CA SKIN LESIONS; BACK PAIN; HX RT RENAL CALCULUS, cellulitis of the lower legs with chronic venous stasis,benign prostatic hypertrophy, obstructive sleep apnea no CPAP, chronic back pain secondary to degenerative disc disease,macular degeneration, circumcision has catheter bag History of Any Multi-Drug Resistant Organisms: None Reported, MRSA Date of last positivie culture/infection: 2014 MDRO Source:: finger Past Surgical History: Joint Replacement, Orthopedic Surgery, Prostate Surgery Additional Past Surgical History / Comment(s): 06/30/18 CYSTOSCOPY REMOVAL OF BLADDER CALCULI AND W/ LT URETERAL STENT INSERTION,LT TOTAL KNEE; RT KNEE MAKOPLASTY; ABD LIPOMA REMOVED; RT RENAL CALCULUS LITHOTRIPSY, RT URETERAL STENT, TURP; bilateral cataract removal with lens implants,circumcision Past Anesthesia/Blood Transfusion Reactions: No Reported Reaction Past Psychological History: No Psychological Hx Reported Smoking Status: Former smoker Past Alcohol Use History: Rare Additional Past Alcohol Use History / Comment(s): Patient was a smoker and quit in 1988. Past Drug Use History: None Reported - Past Family History Father Family Medical History: Cancer Additional Family Medical History / Comment(s): Grandfather had heart attack, father at 67 Medications and Allergies Home Medications Medication Instructions Recorded Confirmed Type Aspirin 325 mg PO DAILY 10/28/13 10/26/23 History Doxazosin [Cardura] 8 mg PO HS 10/28/13 10/26/23 History Multivitamins, Thera [Multivitamin 1 tab PO DAILY 10/28/13 10/26/23 History (formulary)] modafiniL [Provigil] 300 mg PO DAILY 10/11/14 10/26/23 History Cholecalciferol [Vitamin D3 (25 50 mcg PO DAILY 05/29/21 10/26/23 History Mcg = 1000 Iu)] Turmeric Root Extract [Turmeric] 500 mg PO DAILY 05/29/21 10/26/23 History Cephalexin [Keflex] 500 mg PO Q8HR #21 cap 10/26/23 10/26/23 Rx Coffee Xt/Phosphatidyl Serine 1 cap PO DAILY 10/26/23 10/26/23 History [Neuriva Original 100-100Mg Cap] Ginkgo Biloba [place] Extract [Ginkgo 125 mg PO DAILY 10/26/23 10/26/23 History Biloba] Hydrocortisone Cream 1 applic TOPICAL BID PRN 10/26/23 10/26/23 History [Hydrocortisone 2.5% Cream] Ketoconazole 2% Cream [Nizoral 2%] 1 applic TOPICAL BID PRN 10/26/23 10/26/23 History Losartan [Cozaar] 25 mg PO DAILY 10/26/23 10/26/23 History Spironolactone [Aldactone] 25 mg PO DAILY 10/26/23 10/26/23 History Allergies Allergy/AdvReac Type Severity Reaction Status Date / Time No Known Allergies Allergy Verified 10/26/23 13:58 Physical Exam Vitals: Vital Signs Temp Pulse Resp BP Pulse Ox 10/31/23 09:20 97.6 F 88 18 114/67 93 L 10/31/23 04:00 97.9 F 90 16 103/63 95 10/31/23 01:32 94/59 10/30/23 23:40 98 F 89 16 93/59 93 L 10/30/23 23:33 98.2 F 88 18 92/59 92 L 10/30/23 23:00 94 16 91/52 10/30/23 22:45 88 16 101/56 93 L 10/30/23 22:30 97.6 F 81 16 85/48 92 L 10/30/23 21:10 98.0 F 91 16 83/59 96 10/30/23 14:00 97.5 F L 90 17 93/82 95 Intake and Output 10/30/23 10/31/23 10/31/23 22:59 06:59 14:59 Intake Total 800 Output Total 250 Balance 800 -250 Intake: IV 800 Output: Urine 250 Other: Voiding Method Indwelling Catheter Indwelling Catheter Indwelling Catheter Gen: Revealed a 77-year-old white male, morbidly obese, weak, not in respiratory distress. Eyes: PERRL, nonicteric. HENT: PERRLA, EOMI, dry mucous membranes. Neck: Supple no neck masses no JVD Resp: Symmetrical chest expansion diminished breath sounds at the bases no rhonchi no wheezes CVS: Distant S1-S2, no S3 gallop, no murmur. GI: obese soft nontender no megaly no rebound no guarding Musculoskeletal: No deformities and no limitation range of motion Skin: No rashes. Neuro: Patient seems to be very weak, slow, and slightly lethargic. Psych: Cooperative, normal mood, affect and slow/lethargic. Results - Laboratory Findings CBC and BMP: 10/31/23 07:36 10/31/23 07:36 Abnormal lab findings: Abnormal Labs 10/26/23 10/26/23 10/26/23 13:27 13:27 14:55 WBC 14.4 H RBC 4.17 L Hgb Hct MCV 100.2 H MCH Immature Gran # Neutrophils # 12.8 H Neutrophils # (Manual) Lymphocytes # 0.4 L Monocytes # Monocytes # (Manual) Metamyelocytes # (Man) Myelocytes # (Manual) NRBC/100 WBC Diff Sodium 134 L Potassium Carbon Dioxide Anion Gap BUN Creatinine 0.61 L Est GFR (CKD-EPI) BUN/Creatinine Ratio Glucose 115 H POC Glucose (mg/dL) Calcium 8.3 L Total Protein 5.8 L Total Protein (PEP) Albumin 3.4 L Albumin (PEP) Albumin/Globulin Ratio Gamma Globulins Urine Protein 2+ H Urine Ketones 2+ H Urine Blood Small H Ur Leukocyte Esterase Large H Urine RBC 41 H Urine WBC >182 H Urine WBC Clumps Many H Ur Squamous Epith Cells 23 H Urine Bacteria Occasional H Urine Mucus Many H U Free Brenton Light Ch U Free Lambda Light Ch Free Brenton LC, Quant C. difficile (EIA) Intrp 10/27/23 10/27/23 10/27/23 06:19 06:19 06:19 WBC 13.50 H RBC 3.78 L Hgb 12.3 L Hct 36.7 L MCV 97.1 H MCH 32.5 H Immature Gran # 0.10 H Neutrophils # 10.59 H Neutrophils # (Manual) Lymphocytes # Monocytes # 1.48 H Monocytes # (Manual) Metamyelocytes # (Man) Myelocytes # (Manual) NRBC/100 WBC Diff Sodium Potassium 3.4 L Carbon Dioxide Anion Gap BUN Creatinine Est GFR (CKD-EPI) BUN/Creatinine Ratio Glucose POC Glucose (mg/dL) Calcium 7.8 L Total Protein 5.0 L Total Protein (PEP) 5.0 L Albumin 3.4 L Albumin (PEP) 2.90 L Albumin/Globulin Ratio Gamma Globulins 0.52 L Urine Protein Urine Ketones Urine Blood Ur Leukocyte Esterase Urine RBC Urine WBC Urine WBC Clumps Ur Squamous Epith Cells Urine Bacteria Urine Mucus U Free Brent[place] Light Ch U Free Lambda Light Ch Free Brent[place] LC, Quant 2.06 H C. difficile (EIA) Intrp 10/27/23 10/28/23 10/28/23 06:26 09:45 09:45 WBC 14.3 H RBC 3.97 L Hgb 12.8 L Hct MCV MCH Immature Gran # Neutrophils # Neutrophils # (Manual) Lymphocytes # Monocytes # Monocytes # (Manual) Metamyelocytes # (Man) Myelocytes # (Manual) NRBC/100 WBC Diff Sodium 130 L Potassium 3.3 L Carbon Dioxide Anion Gap BUN Creatinine 0.63 L Est GFR (CKD-EPI) BUN/Creatinine Ratio Glucose 123 H POC Glucose (mg/dL) Calcium 7.6 L Total Protein Total Protein (PEP) Albumin Albumin (PEP) Albumin/Globulin Ratio Gamma Globulins Urine Protein Urine Ketones Urine Blood Ur Leukocyte Esterase Urine RBC Urine WBC Urine WBC Clumps Ur Squamous Epith Cells Urine Bacteria Urine Mucus U Free Brenton Light Ch 6.17 H U Free Lambda Light Ch 0.68 H Free Brent[place] LC, Quant C. difficile (EIA) Intrp 10/29/23 10/29/23 10/29/23 04:14 04:14 10:00 WBC 24.7 H RBC 4.12 L Hgb Hct MCV MCH Immature Gran # Neutrophils # Neutrophils # (Manual) Lymphocytes # Monocytes # Monocytes # (Manual) Metamyelocytes # (Man) Myelocytes # (Manual) NRBC/100 WBC Diff Sodium 128 L Potassium 3.4 L Carbon Dioxide 20 L Anion Gap BUN 27 H Creatinine Est GFR (CKD-EPI) BUN/Creatinine Ratio Glucose 114 H POC Glucose (mg/dL) Calcium 7.7 L Total Protein Total Protein (PEP) Albumin Albumin (PEP) Albumin/Globulin Ratio Gamma Globulins Urine Protein Urine Ketones Urine Blood Ur Leukocyte Esterase Urine RBC Urine WBC Urine WBC Clumps Ur Squamous Epith Cells Urine Bacteria Urine Mucus U Free Brent[place] Light Ch U Free Lambda Light Ch Free Brent[place] LC, Quant C. difficile (EIA) Intrp Positive A 10/30/23 10/30/23 10/31/23 06:10 06:16 06:09 WBC 38.95 H RBC 4.05 L Hgb Hct MCV 98.5 H MCH 32.6 H Immature Gran # Neutrophils # Neutrophils # (Manual) Lymphocytes # Monocytes # Monocytes # (Manual) Metamyelocytes # (Man) Myelocytes # (Manual) NRBC/100 WBC Diff 0.03 H Sodium 128 L Potassium Carbon Dioxide 17.8 L Anion Gap 14.20 H BUN 42.8 H Creatinine Est GFR (CKD-EPI) 48 L BUN/Creatinine Ratio 28.53 H Glucose 122 H POC Glucose (mg/dL) 184 H Calcium 7.7 L Total Protein 4.2 L Total Protein (PEP) Albumin 2.5 L Albumin (PEP) Albumin/Globulin Ratio 1.47 L Gamma Globulins Urine Protein Urine Ketones Urine Blood Ur Leukocyte Esterase Urine RBC Urine WBC Urine WBC Clumps Ur Squamous Epith Cells Urine Bacteria Urine Mucus U Free [place] Light Ch U Free Lambda Light Ch Free Brent[place] LC, Quant C. difficile (EIA) Intrp 10/31/23 10/31/23 07:36 07:36 WBC 65.5 H* RBC 4.16 L Hgb Hct MCV MCH Immature Gran # Neutrophils # Neutrophils # (Manual) 54.30 H Lymphocytes # Monocytes # Monocytes # (Manual) 4.59 H Metamyelocytes # (Man) 3.28 H Myelocytes # (Manual) 1.97 H NRBC/100 WBC Diff Sodium 127 L Potassium Carbon Dioxide 18 L Anion Gap BUN 52 H Creatinine 1.35 H Est GFR (CKD-EPI) BUN/Creatinine Ratio Glucose 135 H POC Glucose (mg/dL) Calcium 7.7 L Total Protein Total Protein (PEP) Albumin Albumin (PEP) Albumin/Globulin Ratio Gamma Globulins Urine Protein Urine Ketones Urine Blood Ur Leukocyte Esterase Urine RBC Urine WBC Urine WBC Clumps Ur Squamous Epith Cells Urine Bacteria Urine Mucus U Free Brenton Light Ch U Free Lambda Light Ch Free Brenton LC, Quant C. difficile (EIA) Intrp - Diagnostic Findings Chest x-ray: image reviewed (Chest x-ray on admission showed large body habitus, underpenetrated at the lung bases because of body habitus.) Additional studies: CT of the abdomen pelvis was reviewed and as noted in HPI. Concerned about toxic megacolon. Assessment and Plan Assessment: Impression: Acute sepsis secondary to C. difficile colitis and pseudomonal urinary tract infection, patient has been treated with cefepime, he is now on vancomycin orally 500 mg 4 times daily Flagyl 500 mg 3 times daily and on dificid 200 mg p.o. twice daily patient is receiving vancomycin enema, as recommended by surgery on the case Toxic megacolon, patient is presently n.p.o., may require surgical intervention. Hypovolemic hyponatremia secondary to diarrhea. History of congestive heart failure with preserved ejection fraction, was on diuretics presently on hold Obstructive uropathy and hydronephrosis requiring cystoscopy and right ureteral stent insertion on 10/29 Morbid obesity History of obstructive sleep apnea Generalized weakness, multifactorial. Recommendation: Will transfer the patient to the ICU for higher level of care Continue supportive care measures and treatment as noted above Continue IV fluids GI and DVT prophylaxis Hold feeding for now as the patient may require surgery Continue vancomycin enemas as recommended by surgery Daily labs close monitoring of his renal profile Patient is considered relatively critically ill and needs to be admitted to ICU. Will continue to Time with Patient: Greater than 30
--- NOTE | 2023-10-31 11:52 | P.PN ---
Subjective Progress Note Date: 10/31/23 Principal diagnosis: Pseudomonas UTI, obstructing UPJ calculus Mr. Keene underwent right ureteral stent insertion yesterday evening. He continues to receive cefepime for his Pseudomonas UTI. The Garcia catheter is draining clear yellow urine. Objective - Vital Signs Vital signs: Vital Signs Temp 97.6 F 10/31/23 09:20 Pulse 88 10/31/23 09:20 Resp 18 10/31/23 09:20 BP 114/67 10/31/23 09:20 Pulse Ox 93 L 10/31/23 09:20 FiO2 Intake & Output 10/30/23 10/31/23 10/31/23 18:59 06:59 18:59 Intake Total 800 Output Total 250 Balance 550 Intake: IV 800 Output: Urine 250 Other: Voiding Method Indwelling Catheter Indwelling Catheter Indwelling Catheter - Constitutional General appearance: Present: average body habitus, cooperative, no acute distress - Gastrointestinal Gastrointestinal Comment(s): Soft, distended. - Psychiatric Psychiatric: Present: A&O x's 3 - Labs CBC & Chem 7: 10/31/23 07:36 10/31/23 07:36 Labs: Abnormal Lab Results - Last 24 Hours (Table) 10/31/23 10/31/23 10/31/23 Range/Units 06:09 07:36 07:36 WBC 65.5 H* (3.8-10.6) k/uL RBC 4.16 L (4.30-5.90) m/uL Neutrophils # (Manual) 54.30 H (1.3-7.7) k/uL Monocytes # (Manual) 4.59 H (0-1.0) k/uL Metamyelocytes # (Man) 3.28 H (0) k/uL Myelocytes # (Manual) 1.97 H (0) k/uL Sodium 127 L (137-145) mmol/L Carbon Dioxide 18 L (22-30) mmol/L BUN 52 H (9-20) mg/dL Creatinine 1.35 H (0.66-1.25) mg/dL Glucose 135 H (74-99) mg/dL POC Glucose (mg/dL) 184 H (70-110) mg/dL Calcium 7.7 L (8.4-10.2) mg/dL Assessment and Plan (1) Acute pyelonephritis Current Visit: Yes Status: Acute Code(s): N10 - ACUTE PYELONEPHRITIS SNOMED Code(s): 12316973 (2) Calculus of kidney Current Visit: No Status: Acute Code(s): N20.0 - CALCULUS OF KIDNEY SNOMED Code(s): 79598143 (3) Hydronephrosis with renal and ureteral calculus obstruction Current Visit: No Status: Acute Code(s): N13.2 - HYDRONEPHROSIS WITH RENAL AND URETERAL CALCULOUS OBSTRUCTION SNOMED Code(s): 037695955 Plan: Patient is on appropriate antibiotic therapy for his Pseudomonas UTI, and the obstruction caused by the UPJ calculus has been relieved with stent placement. The fact that his WBC count continues to rise suggest that his primary illness is GI rather than urinary, and there is concern he may be developing toxic megacolon. No urologic changes are needed at this time.
[2023-10-31] MEDS: VANCOMYCIN 500 MG, SODIUM CHLORIDE 0.9% 100 ML MISCELLANE ONE (11:54)
[2023-10-31] MEDS: FIDAXOMICIN 200 MG TABLET PO SCH (11:56)
[2023-10-31] MEDS ORDERED: Magnesium Replacement Protocol 1 EACH MISC MISCELLANE PRN (12:57)
[2023-10-31] MEDS ORDERED: Potassium Replacement Protocol 1 EACH MISC MISCELLANE PRN (12:57)
--- NOTE | 2023-10-31 13:26 | P.PN ---
Subjective Progress Note Date: 10/31/23 Principal diagnosis: Reason for follow-up is C. difficile colitis UTI and leukocytosis Patient is a 77-year-old male with a past medical history significant for hypertension osteoarthritis sleep apnea reflux patient did have a BPH and self catheterize himself because of urine retention, presented to hospital after a fall with weakness he did have a positive UA and has been treated for a UTI also has significant diarrhea stool for C. difficile came back positive pro mpting this consultation. On today's evaluation that is 10/31/2023, the patient is status post cystoscopy and right ureteral stent placement by urology last evening, patient is mildly hypertensive and has been transferred to the ICU patient remains to be afebrile denies any chest pain or cough denies any worsening abdominal pain still have fecal management system no worsening output reported by the nursing staff. Patient white count is up to 65.5 creatinine is 1.35 Objective - Vital Signs Vital signs: Vital Signs Temp 97.9 F 10/31/23 04:00 Pulse 90 10/31/23 04:00 Resp 16 10/31/23 04:00 BP 103/63 10/31/23 04:00 Pulse Ox 95 10/31/23 04:00 FiO2 Intake & Output 10/30/23 10/31/23 10/31/23 18:59 06:59 18:59 Intake Total 800 Output Total 250 Balance 550 Intake: IV 800 Output: Urine 250 Other: Voiding Method Indwelling Catheter Indwelling Catheter - Exam GENERAL DESCRIPTION: An elderly male lying in bed in no distress RESPIRATORY SYSTEM: Unlabored breathing , decreased breath sounds at bases HEART: S1 S2 regular rate and rhythm , ABDOMEN: Soft , mild distention and tenderness EXTREMITIES: No edema feet - Labs CBC & Chem 7: 11/25/23 05:15 11/25/23 05:15 Labs: Abnormal Lab Results - Last 24 Hours (Table) 10/30/23 10/30/23 10/31/23 Range/Units 06:10 06:16 06:09 WBC 38.95 H (4.50-10.00) X 10*3/uL RBC 4.05 L (4.40-5.60) X 10*6/uL MCV 98.5 H (80.0-97.0) FL MCH 32.6 H (27.0-32.0) pg Neutrophils # (Manual) (1.3-7.7) k/uL Monocytes # (Manual) (0-1.0) k/uL Metamyelocytes # (Man) (0) k/uL Myelocytes # (Manual) (0) k/uL NRBC/100 WBC Diff 0.03 H (0.00-0.01) X 10*3/uL Sodium 128 L (135-145) mmol/L Carbon Dioxide 17.8 L (21.6-31.8) mmol/L Anion Gap 14.20 H (4.00-12.00) mmol/L BUN 42.8 H (9.0-27.0) mg/dL Creatinine (0.66-1.25) mg/dL Est GFR (CKD-EPI) 48 L (>=60) BUN/Creatinine Ratio 28.53 H (12.00-20.00) Ratio Glucose 122 H (70-110) mg/dL POC Glucose (mg/dL) 184 H (70-110) mg/dL Calcium 7.7 L (8.7-10.3) mg/dL Total Protein 4.2 L (6.2-8.2) g/dL Albumin 2.5 L (3.8-4.9) g/dL Albumin/Globulin Ratio 1.47 L (1.60-3.17) Ratio 10/31/23 10/31/23 Range/Units 07:36 07:36 WBC 65.5 H* (4.50-10.00) X 10*3/uL RBC 4.16 L (4.40-5.60) X 10*6/uL MCV (80.0-97.0) FL MCH (27.0-32.0) pg Neutrophils # (Manual) 54.30 H (1.3-7.7) k/uL Monocytes # (Manual) 4.59 H (0-1.0) k/uL Metamyelocytes # (Man) 3.28 H (0) k/uL Myelocytes # (Manual) 1.97 H (0) k/uL NRBC/100 WBC Diff (0.00-0.01) X 10*3/uL Sodium 127 L (135-145) mmol/L Carbon Dioxide 18 L (21.6-31.8) mmol/L Anion Gap (4.00-12.00) mmol/L BUN 52 H (9.0-27.0) mg/dL Creatinine 1.35 H (0.66-1.25) mg/dL Est GFR (CKD-EPI) (>=60) BUN/Creatinine Ratio (12.00-20.00) Ratio Glucose 135 H (70-110) mg/dL POC Glucose (mg/dL) (70-110) mg/dL Calcium 7.7 L (8.7-10.3) mg/dL Total Protein (6.2-8.2) g/dL Albumin (3.8-4.9) g/dL Albumin/Globulin Ratio (1.60-3.17) Ratio Assessment and Plan (1) C. difficile colitis Status: Acute Priority: Medium Code(s): A04.72 - ENTEROCOLITIS D/T CLOSTRIDIUM DIFFICILE, NOT SPCF RECUR SNOMED Code(s): 908174696 (2) Leukocytosis Status: Acute Priority: Medium Code(s): D72.829 - ELEVATED WHITE BLOOD CELL COUNT, UNSPECIFIED SNOMED Code(s): 739896737 (3) Urinary tract infection Status: Acute Priority: Medium Code(s): N39.0 - URINARY TRACT INFECTION, SITE NOT SPECIFIED SNOMED Code(s): 40985943 Plan: 1patient with a complicated history and this patient initially presented to the hospital with sepsis as the patient did have a fever elevated white count source likely UTI with urine culture finalized with Pseudomonas aeruginosa, patient did have a CT abdominal pelvis CT shows evidence of hydronephrosis and ureteral stone in this patient who is status post cystoscopy and ureteral stent placement patient is currently covered with the cefepime concerning for pyelonephritis/complicated UTI 2patient also have severe C. difficile colitis with significant elevated white count currently on maximum dose of oral vancomycin and IV Flagyl to continue along with bowel rest General surgery on the case and may need subtotal colectomy for toxic megacolon . Discussed with the SENIOR COMPLIANCE ANALYST for admitting team Dictation was produced using [employer] dictation software. please excuse any grammatical, word or spelling errors. Time with Patient: Greater than 30
--- NOTE | 2023-10-31 13:34 | XR ---
EXAMINATION TYPE: XR KUB portable DATE OF EXAM: 10/31/2023 1:10 PM CLINICAL INDICATION:Male, 77 years old with history of Abd distention; [facility] COMPARISON: 07/16/2018 TECHNIQUE: One radiographic view of the abdomen was obtained. FINDINGS: Right ureteral stent with superior and inferior pigtail is in appropriate position. The bow el gas pattern is nonspecific without dilated loops of small or large bowel. There is no evidence for organomegaly or pneumoperitoneum. The osseous structures are intact. No abnormal calcifications ar e present. Fecal material and gas are demonstrated throughout the colon and rectum. IMPRESSION: 1. Right ureteral stent with pigtails in appropriate position. 2. Nonspecific bowel gas pattern without radiographic evidence for acute process.
[2023-10-31] MEDS: SODIUM CHLORIDE 0.9% 1,000 ML IV ONE (14:37)
[2023-10-31] MEDS: POTASSIUM CHLORIDE ER 20 MEQ TAB.ER PO STA (14:37)
--- NOTE | 2023-10-31 18:31 | P.GSCN ---
History of Present Illness Consult date: 10/31/23 Reason for Consult: toxic megacolon History of present illness: Patient is a 77 yo male w/ right lower quadrant abdominal pain and concern for toxic megacolon. Patient was recently diagnosed w/ c. diff and started on vanco.He was recently started on flagyl. He is currently lethargic w/ abdominal pain. Denies n/v/f/c/sob /cp. Discussed w/ Katalina, currently denies recent abx use or history of c.diff. Review of Systems A 12 point review of symptoms were performed and is otherwise negative except for the above HPI. Also somewhat limited 2/2 lethergy. Past Medical History Past Medical History: Eye Disorder, GERD/Reflux, Hypertension, Osteoarthritis (OA), Prostate Disorder, Renal Disease, Skin Disorder, Sleep Apnea/CPAP/BIPAP Additional Past Medical History / Comment(s): PRE-CA SKIN LESIONS; BACK PAIN; HX RT RENAL CALCULUS, cellulitis of the lower legs with chronic venous stasis,benign prostatic hypertrophy, obstructive sleep apnea no CPAP, chronic back pain secondary to degenerative disc disease,macular degeneration, circumcision has catheter bag History of Any Multi-Drug Resistant Organisms: None Reported, MRSA Year Discovered:: 2014 MDRO Source:: finger Past Surgical History: Joint Replacement, Orthopedic Surgery, Prostate Surgery Additional Past Surgical History / Comment(s): 06/30/18 CYSTOSCOPY REMOVAL OF BLADDER CALCULI AND W/ LT URETERAL STENT INSERTION,LT TOTAL KNEE; RT KNEE MAKOPLASTY; ABD LIPOMA REMOVED; RT RENAL CALCULUS LITHOTRIPSY, RT URETERAL STENT, TURP; bilateral cataract removal with lens implants,circumcision Past Anesthesia/Blood Transfusion Reactions: No Reported Reaction Past Psychological History: No Psychological Hx Reported Smoking Status: Former smoker Past Alcohol Use History: Rare Additional Past Alcohol Use History / Comment(s): Patient was a smoker and quit in 1988. Past Drug Use History: None Reported - Past Family History Father Family Medical History: Cancer Additional Family Medical History / Comment(s): Grandfather had heart attack, father at 67 Medications and Allergies Home Medications Medication Instructions Recorded Confirmed Type Aspirin 325 mg PO DAILY 10/28/13 10/26/23 History Doxazosin [Cardura] 8 mg PO HS 10/28/13 10/26/23 History Multivitamins, Thera [Multivitamin 1 tab PO DAILY 10/28/13 10/26/23 History (formulary)] modafiniL [Provigil] 300 mg PO DAILY 10/11/14 10/26/23 History Cholecalciferol [Vitamin D3 (25 50 mcg PO DAILY 05/29/21 10/26/23 History Mcg = 1000 Iu)] Turmeric Root Extract [Turmeric] 500 mg PO DAILY 05/29/21 10/26/23 History Cephalexin [Keflex] 500 mg PO Q8HR #21 cap 10/26/23 10/26/23 Rx Coffee Xt/Phosphatidyl Serine 1 cap PO DAILY 10/26/23 10/26/23 History [Neuriva Original 100-100Mg Cap] Ginkgo Biloba [place] Extract [Ginkgo 125 mg PO DAILY 10/26/23 10/26/23 History Biloba] Hydrocortisone Cream 1 applic TOPICAL BID PRN 10/26/23 10/26/23 History [Hydrocortisone 2.5% Cream] Ketoconazole 2% Cream [Nizoral 2%] 1 applic TOPICAL BID PRN 10/26/23 10/26/23 History Losartan [Cozaar] 25 mg PO DAILY 10/26/23 10/26/23 History Spironolactone [Aldactone] 25 mg PO DAILY 10/26/23 10/26/23 History Allergies Allergy/AdvReac Type Severity Reaction Status Date / Time No Known Allergies Allergy Verified 10/26/23 13:58 Surgical - Exam Osteopathic Statement: *. No significant issues noted on an osteopathic stru ctural exam other than those noted in the History and Physical/Consult. Vital Signs Temp Pulse Resp BP Pulse Ox 99.6 F 86 18 143/74 95 10/26/23 12:34 10/26/23 12:34 10/26/23 12:34 10/26/23 12:34 10/26/23 12:34 - General gen: nad, lethargic cv: rrr pul: non labored breathing abd: soft, tender to palpation in right lower quadrant, no guarding or rebound tenderness ext: pitting edema in lower extremities b/l Results - Labs 10/31/23 07:36 10/31/23 07:36 Abnormal Lab Results - Last 24 Hours (Table) 10/31/23 10/31/23 10/31/23 Range/Units 06:09 07:36 07:36 WBC 65.5 H* (3.8-10.6) k/uL RBC 4.16 L (4.30-5.90) m/uL Neutrophils # (Manual) 54.30 H (1.3-7.7) k/uL Monocytes # (Manual) 4.59 H (0-1.0) k/uL Metamyelocytes # (Man) 3.28 H (0) k/uL Myelocytes # (Manual) 1.97 H (0) k/uL Sodium 127 L (137-145) mmol/L Carbon Dioxide 18 L (22-30) mmol/L BUN 52 H (9-20) mg/dL Creatinine 1.35 H (0.66-1.25) mg/dL Glucose 135 H (74-99) mg/dL POC Glucose (mg/dL) 184 H (70-110) mg/dL Calcium 7.7 L (8.4-10.2) mg/dL Diabetes panel 10/31/23 Range/Units 07:36 Sodium 127 L (137-145) mmol/L Potassium 3.8 (3.5-5.1) mmol/L Chloride 102 (98-107) mmol/L Carbon Dioxide 18 L (22-30) mmol/L BUN 52 H (9-20) mg/dL Creatinine 1.35 H (0.66-1.25) mg/dL Glucose 135 H (74-99) mg/dL Calcium 7.7 L (8.4-10.2) mg/dL Calcium panel 10/31/23 Range/Units 07:36 Calcium 7.7 L (8.4-10.2) mg/dL Pituitary panel 10/31/23 Range/Units 07:36 Sodium 127 L (137-145) mmol/L Potassium 3.8 (3.5-5.1) mmol/L Chloride 102 (98-107) mmol/L Carbon Dioxide 18 L (22-30) mmol/L BUN 52 H (9-20) mg/dL Creatinine 1.35 H (0.66-1.25) mg/dL Glucose 135 H (74-99) mg/dL Calcium 7.7 L (8.4-10.2) mg/dL Adrenal panel 10/31/23 Range/Units 07:36 Sodium 127 L (137-145) mmol/L Potassium 3.8 (3.5-5.1) mmol/L Chloride 102 (98-107) mmol/L Carbon Dioxide 18 L (22-30) mmol/L BUN 52 H (9-20) mg/dL Creatinine 1.35 H (0.66-1.25) mg/dL Glucose 135 H (74-99) mg/dL Calcium 7.7 L (8.4-10.2) mg/dL Assessment and Plan Assessment: 77 yo male w/ fulminant c. diff ctap reviewed large diameter in colon is at cecum at 7.5cm w/ no carlos-colon edema or fat stranding at this time last lactic acid 1.8, will repeat this evening after appropriate resuscitation transfer to ICU arterial line placed, goal of resuscitation normal lactic acid or map greater than 60 I believe taking this patient to the OR w/ result in significant morbidity and/or mortality, w/ appropriate abx and resuscitation patient's status will improve. Will monitor closely with serial abdominal exams. Had extensive discussion w/ Katalina. She understands the prognosis.
[2023-11-01] MEDS: metroNIDAZOLE-NS PMX 500 MG in SALINE 1 100ML.BAG IVPB SCH (00:09)
[2023-11-01 06:02] LABS: African American GFR (CKD) 81 (>60 ml/min/1.73 sqM); Anion Gap 5 mmol/L; Blood Urea Nitrogen 53 mg/dL (9-20); Calcium 7.4 mg/dL (8.4-10.2); Carbon Dioxide 16 mmol/L (22-30); Chloride 108 mmol/L (98-107); Glucose 108 mg/dL (74-99); Non-African American GFR(CKD) 70 (>60 ml/min/1.73 sqM); Sodium 129 mmol/L (137-145)
[2023-11-01 06:05] LABS: HCT 42.7 % (39.0-53.0); HGB 13.8 gm/dL (13.0-17.5); MCH 32.2 pg (25.0-35.0); MCHC 32.4 g/dL (31.0-37.0); MCV 99.3 fL (80.0-100.0); Mean Platelet Volume 8.5; Platelet Count 255 k/uL (150-450); RDW 14.2 % (11.5-15.5)
[2023-11-01 06:07] LABS: WBC 65.9 k/uL (3.8-10.6)
[2023-11-01] MEDS ORDERED: VANCOMYCIN 500 MG, SODIUM CHLORIDE 0.9% 100 ML MISCELLANE SCH (07:30)
[2023-11-01] MEDS: VANCOMYCIN 500 MG, SODIUM CHLORIDE 0.9% 100 ML MISCELLANE SCH (08:04)
--- NOTE | 2023-11-01 11:06 | P.PN ---
Subjective Progress Note Date: 11/01/23 Principal diagnosis: C. diff colitis the patient remains in the ICU. He has complaints of mild diffuse abdominal pain. On exam vital signs appear stable. Abdomen is soft distended with mild tenderness mainly on the right side. There is no rebound or guarding. C. diff colitis. Patient will undergo repeat CAT scan today. Objective - Vital Signs Vital signs: Vital Signs Temp 98.2 F 11/01/23 08:00 Pulse 86 11/01/23 10:00 Resp 16 11/01/23 10:00 BP 110/56 11/01/23 10:00 Pulse Ox 95 11/01/23 10:00 FiO2 Intake & Output 10/31/23 11/01/23 11/01/23 18:59 06:59 18:59 Intake Total 2700 3200 700 Output Total 150 480 135 Balance 2550 2720 565 Weight 149.6 kg Intake: Intake, IV Titration 2700 3200 700 Amount Cefepime 2 gm In Sodium 100 100 Chloride 0.9% 100 ml @ 25 mls/hr IVPB Q12HR [facility] Rx #:[id number] Sodium Chloride 0.9% 1, 600 1200 500 000 ml @ 100 mls/hr IV . Q10H [facility] Rx#:[id number] Sodium Chloride 0.9% 1, 2000 2000 000 ml @ 999 mls/hr IV . Q1H1M [facility] Rx#:[id number] metroNIDAZOLE-NS PMX 500 100 mg In Saline 1 100ml.bag @ 100 mls/hr IVPB Q8H [facility] Rx#:[id number] Output: Urine 150 480 135 Other: Voiding Method Indwelling Catheter Indwelling Catheter Indwelling Catheter ABP, PAP, CO, CI - Last Documented Arterial Blood Pressure 73/52 - Labs CBC & Chem 7: 11/01/23 05:31 11/01/23 05:31 Labs: Abnormal Lab Results - Last 24 Hours (Table) 11/01/23 11/01/23 Range/Units 05:31 05:31 WBC 65.9 H* (3.8-10.6) k/uL Sodium 129 L (137-145) mmol/L Chloride 108 H (98-107) mmol/L Carbon Dioxide 16 L (22-30) mmol/L BUN 53 H (9-20) mg/dL Glucose 108 H (74-99) mg/dL Calcium 7.4 L (8.4-10.2) mg/dL Microbiology - Last 24 Hours (Table) 10/30/23 19:44 Blood Culture - Preliminary Blood 10/26/23 13:28 Blood Culture - Final Blood 10/26/23 13:20 Blood Culture - Final Blood
--- NOTE | 2023-11-01 11:11 | P.PN ---
Subjective Progress Note Date: 11/01/23 Principal diagnosis: Pseudomonas UTI, obstructing UPJ calculus Mr. Keene underwent right ureteral stent insertion on October 30, 2023 to relieve obstruction resulting from a UPJ calculus. He continues to receive cefepime for his Pseudomonas UTI. The Garcia catheter is draining clear yellow urine. He is resting comfortably at the time of my visit. Objective - Vital Signs Vital signs: Vital Signs Temp 98.2 F 11/01/23 08:00 Pulse 86 11/01/23 10:00 Resp 16 11/01/23 10:00 BP 110/56 11/01/23 10:00 Pulse Ox 95 11/01/23 10:00 FiO2 Intake & Output 10/31/23 11/01/23 11/01/23 18:59 06:59 18:59 Intake Total 2700 3200 700 Output Total 150 480 135 Balance 2550 2720 565 Weight 149.6 kg Intake: Intake, IV Titration 2700 3200 700 Amount Cefepime 2 gm In Sodium 100 100 Chloride 0.9% 100 ml @ 25 mls/hr IVPB Q12HR [facility] Rx #:[id number] Sodium Chloride 0.9% 1, 600 1200 500 000 ml @ 100 mls/hr IV . Q10H [facility] Rx#:[id number] Sodium Chloride 0.9% 1, 2000 2000 000 ml @ 999 mls/hr IV . Q1H1M [facility] Rx#:[id number] metroNIDAZOLE-NS PMX 500 100 mg In Saline 1 100ml.bag @ 100 mls/hr IVPB Q8H [facility] Rx#:[id number] Output: Urine 150 480 135 Other: Voiding Method Indwelling Catheter Indwelling Catheter Indwelling Catheter ABP, PAP, CO, CI - Last Documented Arterial Blood Pressure 73/52 - Constitutional General appearance: Present: average body habitus, no acute distress - Labs CBC & Chem 7: 11/01/23 05:31 11/01/23 05:31 Labs: Abnormal Lab Results - Last 24 Hours (Table) 11/01/23 11/01/23 Range/Units 05:31 05:31 WBC 65.9 H* (3.8-10.6) k/uL Sodium 129 L (137-145) mmol/L Chloride 108 H (98-107) mmol/L Carbon Dioxide 16 L (22-30) mmol/L BUN 53 H (9-20) mg/dL Glucose 108 H (74-99) mg/dL Calcium 7.4 L (8.4-10.2) mg/dL Microbiology - Last 24 Hours (Table) 10/30/23 19:44 Blood Culture - Preliminary Blood 10/26/23 13:28 Blood Culture - Final Blood 10/26/23 13:20 Blood Culture - Final Blood Assessment and Plan Assessment: The patient is currently receiving cefepime for his Pseudomonas UTI, along with Flagyl and oral vancomycin for C. difficile colitis. It appears that the C. difficile colitis is the cause of his significant leukocytosis. He is scheduled to undergo a repeat CT scan today. (1) Acute pyelonephritis Current Visit: Yes Status: Acute Code(s): N10 - ACUTE PYELONEPHRITIS SNOME D Code(s): 90849066 (2) Calculus of kidney Current Visit: No Status: Acute Code(s): N20.0 - CALCULUS OF KIDNEY SNOMED Code(s): 55402321 (3) Hydronephrosis with renal and ureteral calculus obstruction Current Visit: No Status: Acute Code(s): N13.2 - HYDRONEPHROSIS WITH RENAL AND URETERAL CALCULOUS OBSTRUCTION SNOMED Code(s): 131325277 Plan: - Continue cefepime - Continue Garcia catheter drainage for now
[2023-11-01] MEDS: IOPAMIDOL CONTRAST (ORAL USE) VIAL PO PRN (11:34)
--- NOTE | 2023-11-01 11:34 | P.PN ---
Subjective Progress Note Date: 11/01/23 Principal diagnosis: Acute sepsis secondary to C. difficile colitis This is a 77-year-old white male with history of hypertension, obesity, chronic urinary retention, chronic systolic congestive heart failure with ejection fraction of 40 to 45%, patient was admitted to the hospital on 10/26/2023, his chief complaint was mostly a complaint of generalized weakness. Patient has b een noticing more difficulty ambulating due to profound weakness in his lower extremities over quite some time. Patient got to the point where he could not help himself with transfers. Brought into the ER, and the patient was found to have a urinary tract infection and he was treated with antibiot ics/cephalosporins. Since then, the patient was seen by many consultants including infectious disease, urology, and now the patient is being seen by general surgery. He was also seen by oncology. Infectious disease felt that the patient presented with sepsis secondary to urinary tract infection and his urine cultures came back positive for Pseudomonas aeruginosa. Apparently the patient went on to develop C. difficile colitis, and he developed severe diarrhea. Patient was treated with oral vancomycin, but went on to develop worsening abdominal discomfort and diarrhea in spite of oral vancomycin, CT of the abdomen and pelvis done yesterday showed evidence of pancolitis with colonic distention up to 7.5 cm there was no evidence of free air. There was also evidence of 1 cm stone at the right UPJ junction. And the patient was felt to have possibly early obstructive uropathy. There was also another 1.4 cm nonobstructive right renal stone. Patient was seen by urology, and he underwent cystoscopy and right ureteral stent insertion. Today the patient was seen by general surgery on consultation, and became quite concerned about his colonic distention as the patient may be developing a toxic megacolon. Hence recommended transfer to the ICU. I did evaluate the patient on the floor, he is on room air, comfortable, blood pressure is soft, patient is not in any distress but he does seem to be a bit lethargic, and profoundly weak. Hence recommended that we monitor the patient in the ICU and I transferred the patient after my evaluation. Labs today showed significant leukocytosis/leukemoid reaction with WBC count of 65.5, hemoglobin 13.7. Sodium is a bit low at 127 BUN is 52 creatinine 1.35, bicarb is 18 anion gap is normal. Lactic acid yesterday was 1.8. Patient was reevaluated today on 11/01/2023, patient remains in the ICU, he made a significant clinical improvement over the last 24 hours. Blood pressure remained stable patient denies any nausea vomiting abdominal pain, his clinical abdominal findings seem to be benign today. Patient remains on IV fluid at 100 cc/h in the form of 0.9 normal saline, he has a fecal system in place and has no evidence of bleeding, stools are loose, no GI bleeding, and no black or tarry stools. Continues to have leukocytosis/leukemoid reaction with WBC count of 65.9 hemoglobin 15.8 sodium is better today up to 129 bicarb remains a bit low at 16 BUN is 53 creatinine 1.04, improved compared to yesterday creatinine of 1.35. Patient did receive the fluid boluses yesterday for slightly elevated lactic acid. And clearly the patient does not need surgical intervention at this point. Lactic acid yesterday was 1.2 went down from 1.8. Flatplate of the abdomen yesterday showed nonspecific bowel gas pattern without radiographic evidence of acute process. Objective - Vital Signs Vital signs: Vital Signs Temp 98.2 F 11/01/23 08:00 Pulse 86 11/01/23 10:00 Resp 16 11/01/23 10:00 BP 110/56 11/01/23 10:00 Pulse Ox 95 11/01/23 10:00 FiO2 Intake & Output 10/31/23 11/01/23 11/01/23 18:59 06:59 18:59 Intake Total 2700 3200 700 Output Total 150 480 135 Balance 2550 2720 565 Weight 149.6 kg Intake: Intake, IV Titration 2700 3200 700 Amount Cefepime 2 gm In Sodium 100 100 Chloride 0.9% 100 ml @ 25 mls/hr IVPB Q12HR [facility] Rx #:[id number] Sodium Chloride 0.9% 1, 600 1200 500 000 ml @ 100 mls/hr IV . Q10H [facility] Rx#:[id number] Sodium Chloride 0.9% 1, 2000 2000 000 ml @ 999 mls/hr IV . Q1H1M [facility] Rx#:[id number] metroNIDAZOLE-NS PMX 500 100 mg In Saline 1 100ml.bag @ 100 mls/hr IVPB Q8H [facility] Rx#:[id number] Output: Urine 150 480 135 Other: Voiding Method Indwelling Catheter Indwelling Catheter Indwelling Catheter ABP, PAP, CO, CI - Last Documented Arterial Blood Pressure 73/52 - Exam Gen: Revealed a 77-year-old white male, morbidly obese, seems to be definitely more awake today Eyes: PERRL, nonicteric. HENT: PERRLA, EOMI, dry mucous membranes. Neck: Supple no neck masses no JVD Resp: Symmetrical chest expansion diminished breath sounds at the bases no rhonchi no wheezes CVS: Distant S1-S2, no S3 gallop, no murmur. GI: obese soft nontender no megaly no rebound no guarding, fecal system is in place. Musculoskeletal: No deformities and no limitation range of motion Skin: No rashes. Neuro: Alert and oriented x 3 no gross focal neurologic deficit Psych: Cooperative, normal mood, affect and slow/lethargic. - Labs CBC & Chem 7: 11/01/23 05:31 11/01/23 05:31 Labs: Abnormal Lab Results - Last 24 Hours (Table) 11/01/23 11/01/23 Range/Units 05:31 05:31 WBC 65.9 H* (3.8-10.6) k/uL Sodium 129 L (137-145) mmol/L Chloride 108 H (98-107) mmol/L Carbon Dioxide 16 L (22-30) mmol/L BUN 53 H (9-20) mg/dL Glucose 108 H (74-99) mg/dL Calcium 7.4 L (8.4-10.2) mg/dL Microbiology - Last 24 Hours (Table) 10/30/23 19:44 Blood Culture - Preliminary Blood 10/26/23 13:28 Blood Culture - Final Blood 10/26/23 13:20 Blood Culture - Final Blood Assessment and Plan Assessment: Impression: Acute sepsis secondary to C. difficile colitis and pseudomonal urinary tract infection, patient has been treated with cefepime, he is now on vancomycin orally 500 mg 4 times daily Flagyl 500 mg 3 times daily and on dificid 200 mg p.o. twice daily patient is receiving vancomycin enema Doubt toxic megacolon at this point Hypovolemic hyponatremia secondary to diarrhea. Improved with hydration and fluid boluses History of congestive heart failure with preserved ejection fraction, continue to hold diuretics Obstructive uropathy and hydronephrosis requiring cystoscopy and right ureteral stent insertion on 10/29 Morbid obesity History of obstructive sleep apnea Generalized weakness, multifactorial. Recommendation: Continue to monitor in the ICU for the next 24 hours and possibly transfer to regular medical floor tomorrow. Continue IV fluids GI and DVT prophylaxis Continue to hold feedings Continue vancomycin enemas as recommended by surgery Monitor daily labs Will continue to follow Time with Patient: Less than 30
--- NOTE | 2023-11-01 11:44 | P.CONS ---
History of Present Illness - Reason for Consult Consult date: 10/30/23 - History of Present Illness 77-year-old male with medical history of hypertension, urinary retention requiring frequent straight cath, obesity class III, restless leg syndrome, chronic systolic heart failure with ejection fraction 40 to 45% presented to ED with generalized weakness that was worsening at home. Influenza A, B, RSV, COVID were negative. He was admitted for complicated urinary tract infection with a history of multidrug-resistant E. coli. Urine cx positive for pseudomonas. Patient also developed c. diff colitis for which he is on treatment. He is in the ICU. At home he is very independent. 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 He did not use any assistive devices. He lived with his 5 ISATU with his . He is significantly below functional level currently. Having some abdominal pain. Having significant weakness. Past Medical History Past Medical History: Eye Disorder, GERD/Reflux, Hypertension, Osteoarthritis (OA), Prostate Disorder, Renal Disease, Skin Disorder, Sleep Apnea/CPAP/BIPAP Additional Past Medical History / Comment(s): PRE-CA SKIN LESIONS; BACK PAIN; HX RT RENAL CALCULUS, cellulitis of the lower legs with chronic venous stasis,benign prostatic hypertrophy, obstructive sleep apnea no CPAP, chronic back pain secondary to degenerative disc disease,macular degeneration, circum cision has catheter bag History of Any Multi-Drug Resistant Organisms: None Reported, MRSA Year Discovered:: 2014 MDRO Source:: finger Past Surgical History: Joint Replacement, Orthopedic Surgery, Prostate Surgery Additional Past Surgical History / Comment(s): 06/30/18 CYSTOSCOPY REMOVAL OF BLADDER CALCULI AND W/ LT URETERAL STENT INSERTION,LT TOTAL KNEE; RT KNEE MAKOPLASTY; ABD LIPOMA REMOVED; RT RENAL CALCULUS LITHOTRIPSY, RT URETERAL STENT, TURP; bilateral cataract removal with lens implants,circumcision Past Anesthesia/Blood Transfusion Reactions: No Reported Reaction Past Psychological History: No Psychological Hx Reported Smoking Status: Former smoker Past Alcohol Use History: Rare Additional Past Alcohol Use History / Comment(s): Patient was a smoker and quit in 1988. Past Drug Use History: None Reported - Past Family History Father Family Medical History: Cancer Additional Family Medical History / Comment(s): Grandfather had heart attack, father at 67 Medications and Allergies Home Medications Medication Instructions Recorded Confirmed Type Aspirin 325 mg PO DAILY 10/28/13 10/26/23 History Doxazosin [Cardura] 8 mg PO HS 10/28/13 10/26/23 History Multivitamins, Thera [Multivitamin 1 tab PO DAILY 10/28/13 10/26/23 History (formulary)] modafiniL [Provigil] 300 mg PO DAILY 10/11/14 10/26/23 History Cholecalciferol [Vitamin D3 (25 50 mcg PO DAILY 05/29/21 10/26/23 History Mcg = 1000 Iu)] Turmeric Root Extract [Turmeric] 500 mg PO DAILY 05/29/21 10/26/23 History Cephalexin [Keflex] 500 mg PO Q8HR #21 cap 10/26/23 10/26/23 Rx Coffee Xt/Phosphatidyl Serine 1 cap PO DAILY 10/26/23 10/26/23 History [Neuriva Original 100-100Mg Cap] Ginkgo Biloba [place] Extract [Ginkgo 125 mg PO DAILY 10/26/23 10/26/23 History Biloba] Hydrocortisone Cream 1 applic TOPICAL BID PRN 10/26/23 10/26/23 History [Hydrocortisone 2.5% Cream] Ketoconazole 2% Cream [Nizoral 2%] 1 applic TOPICAL BID PRN 10/26/23 10/26/23 History Losartan [Cozaar] 25 mg PO DAILY 10/26/23 10/26/23 History Spironolactone [Aldactone] 25 mg PO DAILY 10/26/23 10/26/23 History Allergies Allergy/AdvReac Type Severity Reaction Status Date / Time No Known Allergies Allergy Verified 10/26/23 13:58 Physical Exam Vitals: Vital Signs Temp Pulse Pulse Resp BP Pulse Ox 11/01/23 10:00 86 16 110/56 95 11/01/23 09:00 87 23 118/65 96 11/01/23 08:00 98.2 F 22 113/59 95 11/01/23 07:00 84 30 H 104/68 95 11/01/23 06:00 81 14 128/58 95 11/01/23 05:00 84 28 H 98/56 94 L 11/01/23 04:00 98.1 F 84 22 108/55 93 L 11/01/23 03:00 73 22 112/57 92 L 11/01/23 02:00 88 26 H 93 L 11/01/23 01:00 85 18 100/77 93 L 11/01/23 00:08 89 26 H 106/54 91 L 11/01/23 00:00 90 26 H 103/46 92 L 10/31/23 23:00 91 32 H 110/64 92 L 10/31/23 22:00 84 26 H 111/56 95 10/31/23 21:00 86 17 106/49 94 L 10/31/23 20:00 88 89 18 102/52 92 L 10/31/23 19:00 87 32 H 99/60 94 L 10/31/23 18:00 87 12 100/55 91 L 10/31/23 17:00 88 27 H 98/50 95 10/31/23 16:00 97.8 F 89 84 26 H 90/49 95 10/31/23 15:00 88 22 110/49 93 L 10/31/23 14:00 85 20 86/51 96 10/31/23 13:00 85 24 107/63 95 10/31/23 12:00 97.8 F 87 84 26 H 94/55 94 L Intake and Output 10/31/23 11/01/23 11/01/23 22:59 06:59 14:59 Intake Total 2700 800 700 Output Total 265 325 135 Balance 2438 930 215 Intake: Intake, IV Titration 2700 800 700 Amount Cefepime 2 gm In Sodium 100 Chloride 0.9% 100 ml @ 25 mls/hr IVPB Q12HR [facility] Rx #:[id number] Sodium Chloride 0.9% 1, 700 800 500 000 ml @ 100 mls/hr IV . Q10H [facility] Rx#:[id number] Sodium Chloride 0.9% 1, 2000 000 ml @ 999 mls/hr IV . Q1H1M [facility] Rx#:[id number] metroNIDAZOLE-NS PMX 500 100 mg In Saline 1 100ml.bag @ 100 mls/hr IVPB Q8H [facility] Rx#:[id number] Output: Urine 265 325 135 Other: Voiding Method Indwelling Catheter Indwelling Catheter Indwelling Catheter Weight 149.6 kg ABP, PAP, CO, CI - Last 8 Hours Arterial Blood Pressure 73/52 General: Well-developed, appears weak, lying in bed Cardiovascular: Regular rate Respiratory: Even and unlabored respirations on NC Gastrointestinal: Soft, + TTP, no rebound or guarding , + flexi seal Genitourinary: +roy Skin: Skin intact where visible to head, neck, and bilateral upper and lower extremities Neurological: Alert and oriented x 3 CN II-XII grossly intact Speech is clear, fluent. Follows 3 step commands. Normal bulk and tone of all muscles without atrophy B/L UE are 4/5 proximally, 5/5 distally B/L LE HF 2/5, KE 3/5, DF 5/5 Sensation light touch intact bilateral UE/LE Extremities: B/L calves are supple, non-tender, no cords; + LE edema Psychiatric: Calm and cooperative Results CBC & Chem 7: 11/01/23 05:31 11/01/23 05:31 Labs: Abnormal Lab Results - Last 24 Hours (Table) 11/01/23 11/01/23 Range/Units 05: 05:31 WBC 65.9 H* (3.8-10.6) k/uL Sodium 129 L (137-145) mmol/L Chloride 108 H (98-107) mmol/L Carbon Dioxide 16 L (22-30) mmol/L BUN 53 H (9-20) mg/dL Glucose 108 H (74-99) mg/dL Calcium 7.4 L (8.4-10.2) mg/dL Microbiology - Last 24 Hours (Table) 10/30/23 19:44 Blood Culture - Preliminary Blood 10/26/23 13:28 Blood Culture - Final Blood 10/26/23 13:20 Blood Culture - Final Blood Assessment and Plan Assessment: Generalized weakness secondary to complicated UTI as well as C.Diff infection -has roy and flexicile -continue PT/OT for mobilization -Recommend IPR after DC: Therapies reviewed: Patient was evaluated by therapies. He is a max assist for bed mobility, moderate assist for sit to transfer, he was able to ambulate 3 feet with 2 person min assist with rolling walker. Disposition: inpatient would be a great inpatient rehab candidate given his significantly below his functional baseline. He is requiring significant assistance for basic mobility. He also has multiple acute medical issues, including UTI C diff infection. He would benefit from a structured course of PT in an inpatient rehab setting. He must be off of all IV medications excluding antibiotics prior to admission to inpatient rehab. Discussed with dependency case manager and patient. I explained to him that details surrounding inpatient rehab, and what he can expect. He may need insurance authorization. Will submit and if approved, will arrange for admission at [facility] inpatient rehab. #Complicated UTI with pseudomonus -continue abx per ID #C difficile colitis -continue abx per ID # Hx of Urinary retention requiring straight cath -maintain roy catheter #History of systolic heart failure with an ejection fraction of 40 to 45%, septal hypokinesis, and severe left concentric hypertrophy -Continue lasix 40mg IV daily per primary, cardiology following #Obesity Class III #Hypertension #Pain mgmt. -acetaminophen 650 mg q6h prn #Low vit D -continue supplementation #GI ppx Protonix 40 mg iv Dispo: Recommending IPR. See above.
--- NOTE | 2023-11-01 11:56 | P.PN ---
Subjective Progress Note Date: 11/01/23 77-year-old male with medical history of hypertension, urinary retention requiring frequent straight cath, obesity class III, restless leg syndrome, chronic systolic heart failure with ejection fraction 40 to 45% presented for evaluation of generalized weakness. Patient says that he has been having troub le ambulating due to lower extremity weakness over quite some time, but this has gotten significantly worse over the past week. He lives at home with his and daughter, who he says were unable to help him with transfers, prompting him to come to the emergency room for further evaluation. Yesterday, he was in the emergency room and was found to have a likely urinary tract infection, and was s tarted on cephalexin. He does report some suprapubic pain. But he denies fevers, chills. In the emergency room, patient was afebrile, 134/65, heart rate 80, 95% on room air. CBC was remarkable for leukocytosis to 14.4. Basic metabolic panel showed sodium of 134. Liver function tests were unremarkable. TSH was 0.613. UA from this ER visit was contaminated, prior ER visit UA was reviewed which did demonstrate large leukocyte esterase, small amount of blood, 1+ ketones, 1+ protein, greater than 182 white blood cells, white blood cell clumps were present, many bacteria. Influenza A, B, RSV, COVID were negative. EKG shows low QRS voltage throughout, left axis deviation. Chest x-ray demonstrates low lung volumes, cardiomegaly, pulmonary vascular congestion and a reticular pattern consistent with volume overload. 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 Patient was started on Cefepime for treatment of UTI. UCx came back with pseudomonas. RN noted melanotic stools. Stool occult blood negative. C. diff came back positive. Started on Flagyl IV and Vancomycin PO, ID consulted. CT AP ordered 10/29 showing severe pancolitis with colonic distention up to 7.5 cm, 1 cm right UPJ stone with early obstructive uropathy. Concerns for toxic megacolon, patient placed NPO, General surgery consulted. Urology consulted, underwent cystoscopy, right ureteral stent insertion on 10/29. 10/30 Patient was seen and examined. Patient appears lethargic and easily falling asleep. Maintained on Cefepime 1g IV TID (started 03/27 for pseudomonal UTI), Vancomycin 500 mg PO QID and Flagyl 500 mg IV TID (C. diff colitis). The case was discussed with Dr. Ling and patient at bedside. Will attempt to avoid surgery as much as possible. Transfer to ICU. Start Fidaxomicin and Vancomycin enema. Continue IV hydration. Attempted to call Katalina ([phone]) multiple times went to [facility] for rehabilitation. CBC shows WBC 65.6 RBC 4.16. BMP Na 127, bicarb 18, BUN 52, Cr 1.35, glu 135, Ca 7.7. Mag 2.0. 10/31 Patient was seen and examined in the ICU. Feeling less lethargic. Abdominal pain more improved. Maintained on Cefepime 2g IV BID (started 03/27 for pseudomonal UTI), Vancomycin 500 mg PO QID (10/28), Flagyl 500 mg IV TID (10/29). Started on Vancomycin enemas and Fidaxomicin 200 mg PO BID (10/30). Surgery recommends repeat CT scan today. PMR recommends IPR on discharge. CBC shows WBC 65.9. BMP Na 129, Cl 108, bicarb 16, BUN 53, glu 108, Ca 7.4. Mag 2.0. General: lethargic, no distress, appears at stated age, obese Derm: warm, dry Head: atraumatic, normocephalic, symmetric Eyes: EOMI, no lid lag, anicteric sclera Mouth: no lip lesion, mucus membranes moist Cardiovascular: S1S2 reg, no murmur Lungs: Decreased BS bilateral, no rhonchi, no rales , no accessory muscle use Abd: Obese. Tenderness to plapation in all 4 quadrants worse in the RLQ without rebound. Fecal management system in place. + Roy Ext: no gross muscle atrophy, no edema, no contractures Neuro: no focal neuro deficits Psych: Alert, oriented, appropriate affect Sepsis due to C. diff colitis and Pseudomonal UTI: Cefepime 1g IV TID (started 03/27 for pseudomonal UTI), Vancomycin 500 mg PO QID and Flagyl 500 mg IV TID (started 10/28 and 10/29 for C. diff colitis). Fidaxomicin 200 mg PO BID (started 10/30. Vancomycin enema Q6H (started 10/30). BCx negative. NS at 100 cc/hr. ID on board. Toxic megacolon: Patient placed NPO. Surgery on board. Antibiotics to treat C. diff as above. ICU transfer for closer monitoring. Repeat CT Abd ordered by Surgery. Hyponatremia, prerenal azotemia and metabolic acidosis likely related to severe diarrhea: Lactic acid 1.8. IV hydration as above. Diastolic CHF: EF 55% with G1DD. Lasix, Aldactone, and losartan held due to hypotension. Low QRS voltage on EKG: Urine kappa light 6.17 and urine free lambda light 0.68. Free kappa LC quant was 2.06. Hematology consulted, likely a normal variant. Hematology outpatient. Obstructive uropathy due to right UPJ stone: Status post cystoscopy, right ureteral stent insertion on 10/29. Maintain roy catheter. Doxazosin 8 mg PO QHS. Urology on board. Obesity Class III: Structed weight loss program. Candidal Cellulitis in the suprapubic area: Nystatin powder Generalized weakness: Fall precautions. PT OT consult. Needs SNF. CODE STATUS: FULL CODE DVT Prophylaxis: Heparin SQ GI Prophylaxis: Protonix IV Designated medical POA if patient is not able to make medical decisions for themselves: I have reviewed the following healthcare market consultant notes: ID, Urology, Surgery, PMR I have reviewed the results of the following tests: CBC, BMP, Mag I have ordered the following tests: CBC, BMP, Mag tomorrow. I have discussed the care of this patient with the following independent historian: ANA. I have independently interpreted the following test below: I have discussed the management of this patient with the following physician: Objective - Vital Signs Vital signs: Vital Signs Temp 98.1 F 11/01/23 04:00 Pulse 81 11/01/23 06:00 Resp 14 11/01/23 06:00 BP 128/58 11/01/23 06:00 Pulse Ox 95 11/01/23 06:00 FiO2 Intake & Output 10/31/23 11/01/23 11/01/23 18:59 06:59 18:59 Intake Total 2700 3200 Output Total 150 480 Balance 2550 2720 Weight 149.6 kg Intake: Intake, IV Titration 2700 3200 Amount Cefepime 2 gm In Sodium 100 Chloride 0.9% 100 ml @ 25 mls/hr IVPB Q12HR [facility] Rx #:[id number] Sodium Chloride 0.9% 1, 600 1200 000 ml @ 100 mls/hr IV . Q10H [facility] Rx#:[id number] Sodium Chloride 0.9% 1, 2000 2000 000 ml @ 999 mls/hr IV . Q1H1M [facility] Rx#:[id number] Output: Urine 150 480 Other: Voiding Method Indwelling Catheter Indwelling Catheter ABP, PAP, CO, CI - Last Documented Arterial Blood Pressure 73/52 - Labs CBC & Chem 7: 11/01/23 05:31 11/01/23 05:31 Labs: Abnormal Lab Results - Last 24 Hours (Table) 10/31/23 10/31/23 11/01/23 Range/Units 07:36 07:36 05:31 WBC 65.5 H* 65.9 H* (3.8-10.6) k/uL RBC 4.16 L (4.30-5.90) m/uL Neutrophils # (Manual) 54.30 H (1.3-7.7) k/uL Monocytes # (Manual) 4.59 H (0-1.0) k/uL Metamyelocytes # (Man) 3.28 H (0) k/uL Myelocytes # (Manual) 1.97 H (0) k/uL Sodium 127 L (137-145) mmol/L Chloride (98-107) mmol/L Carbon Dioxide 18 L (22-30) mmol/L BUN 52 H (9-20) mg/dL Creatinine 1.35 H (0.66-1.25) mg/dL Glucose 135 H (74-99) mg/dL Calcium 7.7 L (8.4-10.2) mg/dL 11/01/23 Range/Units 05:31 WBC (3.8-10.6) k/uL RBC (4.30-5.90) m/uL Neutrophils # (Manual) (1.3-7.7) k/uL Monocytes # (Manual) (0-1.0) k/uL Metamyelocytes # (Man) (0) k/uL Myelocytes # (Manual) (0) k/uL Sodium 129 L (137-145) mmol/L Chloride 108 H (98-107) mmol/L Carbon Dioxide 16 L (22-30) mmol/L BUN 53 H (9-20) mg/dL Creatinine (0.66-1.25) mg/dL Glucose 108 H (74-99) mg/dL Calcium 7.4 L (8.4-10.2) mg/dL Microbiology - Last 24 Hours (Table) 10/30/23 19:44 Blood Culture - Preliminary Blood 10/26/23 13:28 Blood Culture - Final Blood 10/26/23 13:20 Blood Culture - Final Blood
--- NOTE | 2023-11-01 14:07 | CT ---
EXAMINATION TYPE: CT abdomen pelvis wo con DATE OF EXAM: 11/01/2023 COMPARISON: 10/30/2023 HISTORY: 77-year-old male C. Diff colitis CT DLP: 2356.8 mGycm. Automated exposure control for dose reduction was used. TECHNIQUE: Contiguous axial scanning of the abdomen and pelvis without IV contrast. Coronal and sagit blanka reconstructions performed. FINDINGS: Mild generalized anasarca change. Bilateral gynecomastia. Heart borderline in sizer. Small pericardia l effusion measuring 9 mm thick. Small right and trace left pleural effusions with strandy atelectasi s. Small hiatal hernia. Tiny 7 mm hypodensity right liver lobe 2 small for accurate characterization, probably a tiny cyst. O therwise, noncontrast appearance of the liver, gallbladder, adrenal glands, left kidney, spleen, and atrophic pancreas show no gross abnormality. A right ureteral stent is in place. Previous right lower pole renal stone appears to have a more frag mentary appearance measuring 1.1 cm versus 1.4 cm, previously. Possible stone fragments within the ri ght renal collecting system at the proximal stent loop. No dilated small bowel, free fluid, or free air. There is circumferential pancolonic wall thickening, severely involving the cecum and ascending colon. Sigmoid diverticulosis. Inflammation does not appe ar to be particular centered over a colonic diverticula. Mild abdominal pelvic ascites and generalized mesenteric edema. No obvious free air. Left superior bladder wall diverticulum measuring 4.4 cm. Intraluminal bladder air relating to instru mentation. The distal loop of the right ureteral stent is in place. Prostate gland is enlarged at 5.7 mm wide. Garcia catheter is present. The balloon may be somewhat low in position in the upper prostat e gland, refer to sagittal image 80 and axial image 97. 9 mm calcification behind the bladder probabl e phlebolith. Bladder stone possible. Rectal tube is present. No abnormal fluid collection pelvis. Patulous right inguinal canal. Anasarca change has worsened since the prior study. Bones: Moderate to advanced spondylotic change mid to lower lumbar spine. IMPRESSION: 1. Ongoing pancolitis. Severe wall thickening along the right side of the colon as was present previ ously. 2. Worsening generalized anasarca change now with trace pleural effusions and mild ascites. Correla te for fluid overload state. 3. Interval placement of a right ureteral stent. The right renal stone measures 1.1 cm now versus 1. 4 cm, previously. Some calcification remains in the right renal pelvis at the proximal stent loop. 4. A Garcia catheter is present. The balloon may be inflated within the upper prostate gland. Correla te for possible malpositioning.
[2023-11-02 08:04] LABS: HCT 42.1 % (39.0-53.0); HGB 13.3 gm/dL (13.0-17.5); MCH 32.2 pg (25.0-35.0); MCHC 31.6 g/dL (31.0-37.0); MCV 101.8 fL (80.0-100.0); Macrocytosis Slight; Mean Platelet Volume 8.1; Platelet Count 289 k/uL (150-450); RBC 4.13 m/uL (4.30-5.90); RDW 14.1 % (11.5-15.5)
[2023-11-02 08:17] LABS: African American GFR (CKD) 86 (>60 ml/min/1.73 sqM); Anion Gap 3 mmol/L; Blood Urea Nitrogen 51 mg/dL (9-20); Calcium 7.5 mg/dL (8.4-10.2); Carbon Dioxide 17 mmol/L (22-30); Chloride 109 mmol/L (98-107); Glucose 116 mg/dL (74-99); Non-African American GFR(CKD) 74 (>60 ml/min/1.73 sqM); Potassium 3.8 mmol/L (3.5-5.1); Sodium 129 mmol/L (137-145)
[2023-11-02 08:33] LABS: WBC 53.3 k/uL (3.8-10.6)
[2023-11-02 08:54] LABS: Band Neutrophils % 11 %; Metamyelocytes % 3 %; Monocytes # (M) 2.13 k/uL (0-1.0); Myelocytes # (M) 1.07 k/uL (0); Myelocytes % 2 %; Neutrophils % (M) 76 %; Nucleated Red Blood Cells 0 /100 WBC (0-0); Total Cells Counted 200
[2023-11-02 08:55] LABS: Large Platelets Present
[2023-11-02] MEDS: SODIUM CHLORIDE 0.9% 1,000 ML IV SCH (09:00)
--- NOTE | 2023-11-02 11:06 | P.PN ---
Subjective Progress Note Date: 11/02/23 This is a 77-year-old white male with history of hypertension, obesity, chronic urinary retention, chronic systolic congestive heart failure with ejection fraction of 40 to 45%, patient was admitted to the hospital on 10/26/2023, his chief complaint was mostly a complaint of generalized weakness. Patient has been noticing more difficulty ambulating due to profound weakness in his lower extremities over quite some time. Patient got to the point where he could not help himself with transfers. Brought into the ER, and the patient was found to have a urinary tract infection and he was treated with anti biotics/cephalosporins. Since then, the patient was seen by many consultants including infectious disease, urology, and now the patient is being seen by general surgery. He was also seen by oncology. Infectious disease felt that the patient presented with sepsis secondary to urinary tract infection and his urine cultures came back positive for Pseudomonas aeruginosa. Apparently the patient went on to develop C. difficile colitis, and he developed severe diarrhea. Patient was treated with oral vancomycin, but went on to develop worsening abdominal discomfort and diarrhea in spite of oral vancomycin, CT of the abdomen and pelvis done yesterday showed evidence of pancolitis with colonic distention up to 7.5 cm there was no evidence of free air. There was also evidence of 1 cm stone at the right UPJ junction. And the patient was felt to have possibly early obstructive uropathy. There was also another 1.4 cm nonobstructive right renal stone. Patient was seen by urology, and he underwent cystoscopy and right ureteral stent insertion. Today the patient was seen by general surgery on consultation, and became quite concerned about his colonic distention as the patient may be developing a toxic megacolon. Hence recommended transfer to the ICU. I did evaluate the patient on the floor, he is on room air, comfortable, blood pressure is soft, patient is not in any distress but he does seem to be a bit lethargic, and profoundly weak. Hence recommended that we monitor the patient in the ICU and I transferred the patient after my evaluation. Labs today showed significant leukocytosis/leukemoid reaction with WBC count of 65.5, hemoglobin 13.7. Sodium is a bit low at 127 BUN is 52 creatinine 1.35, bicarb is 18 anion gap is normal. Lactic acid yesterday was 1.8. Patient was reevaluated today on 11/01/2023, patient remains in the ICU, he made a significant clinical improvement over the last 24 hours. Blood pressure remained stable patient denies any nausea vomiting abdominal pain, his clinical abdominal findings seem to be benign today. Patient remains on IV fluid at 100 cc/h in the form of 0.9 normal saline, he has a fecal system in place and has no evidence of bleeding, stools are loose, no GI bleeding, and no black or tarry stools. Continues to have leukocytosis/leukemoid reaction with WBC count of 65.9 hemoglobin 15.8 sodium is better today up to 129 bicarb remains a bit low at 16 BUN is 53 creatinine 1.04, improved compared to yesterday creatinine of 1. 35. Patient did receive the fluid boluses yesterday for slightly elevated lactic acid. And clearly the patient does not need surgical intervention at this point. Lactic acid yesterday was 1.2 went down from 1.8. Flatplate of the abdomen yesterday showed nonspecific bowel gas pattern without radiographic evidence of acute process. The patient is seen today November 02, 2023 in follow-up in the intensive care unit. He is currently awake and alert in no acute distress. He is maintaining good O2 saturations in the 90s on room air. He has normal staying at 100 MLS per hour. He remains on oral vancomycin, cefepime, Flagyl, Dificid for his C. difficile colitis and urinary tract infection. He did undergo ureteral stenting on 10/30/2023. Urine culture was positive for Pseudomonas aeruginosa. Blood cultures revealing no growth. White count 53.3. Hemoglobin 13.3. Platelets 289. Sodium 129. Potassium 3.8. Bicarb 17. BUN 51. Creatinine 0.99. Glucose 116. He is afebrile. Hemodynamically stable. Objective - Vital Signs Vital signs: Vital Signs Temp 97.9 F 11/02/23 08:00 Pulse 78 11/02/23 09:00 Resp 20 11/02/23 09:00 BP 130/68 11/02/23 09:00 Pulse Ox 99 11/02/23 07:00 FiO2 Intake & Output 11/01/23 11/02/23 11/02/23 18:59 06:59 18:59 Intake Total 1400 1400 300 Output Total 580 590 150 Balance 820 810 150 Weight 152.861 kg Intake: IV 1400 300 Cefepime 2 gm In Sodium 100 Chloride 0.9% 100 ml @ 25 mls/hr IVPB Q12HR [facility] Rx #:[id number] Sodium Chloride 0.9% 1, 1200 200 000 ml @ 100 mls/hr IV . Q10H [facility] Rx#:[id number] metroNIDAZOLE-NS PMX 500 100 100 mg In Saline 1 100ml.bag @ 100 mls/hr IVPB Q8H [facility] Rx#:[id number] Intake, IV Titration 1400 Amount Cefepime 2 gm In Sodium 100 Chloride 0.9% 100 ml @ 25 mls/hr IVPB Q12HR [facility] Rx #:[id number] Sodium Chloride 0.9% 1, 1100 000 ml @ 100 mls/hr IV . Q10H [facility] Rx#:[id number] metroNIDAZOLE-NS PMX 500 200 mg In Saline 1 100ml.bag @ 100 mls/hr IVPB Q8H [facility] Rx#:[id number] Output: Urine 580 590 150 Other: Voiding Method Indwelling Catheter Indwelling Catheter ABP, PAP, CO, CI - Last Documented Arterial Blood Pressure 73/52 - Exam GENERAL EXAM: Alert, pleasant 77-year-old male, on room air, comfortable in no apparent distress. HEAD: Normocephalic. EYES: Normal reaction of pupils, equal size. NOSE: Clear with pink turbinates. THROAT: No erythema or exudates. NECK: No masses, no JVD. CHEST: No chest wall deformity. LUNGS: Equal air entry with no crackles, wheeze, rhonchi or dullness. CVS: S1 and S2 normal with no audible murmur, regular rhythm. ABDOMEN: No hepatosplenomegaly, normal bowel sounds, no guarding or rigidity. SPINE: No scoliosis or deformity SKIN: No rashes CENTRAL NERVOUS SYSTEM: No focal deficits, tone is normal in all 4 extremities. EXTREMITIES: There is no peripheral edema. No clubbing, no cyanosis. Peripheral pulses are intact. - Labs CBC & Chem 7: 11/02/23 07:45 11/02/23 07:45 Labs: Abnormal Lab Results - Last 24 Hours (Table) 11/02/23 11/02/23 Range/Units 07:45 07:45 WBC 53.3 H* (3.8-10.6) k/uL RBC 4.13 L (4.30-5.90) m/uL MCV 101.8 H (80.0-100.0) fL Neutrophils # (Manual) 46.30 H (1.3-7.7) k/uL Monocytes # (Manual) 2.13 H (0-1.0) k/uL Metamyelocytes # (Man) 1.60 H (0) k/uL Myelocytes # (Manual) 1.07 H (0) k/uL Sodium 129 L (137-145) mmol/L Chloride 109 H (98-107) mmol/L Carbon Dioxide 17 L (22-30) mmol/L BUN 51 H (9-20) mg/dL Glucose 116 H (74-99) mg/dL Calcium 7.5 L (8.4-10.2) mg/dL Microbiology - Last 24 Hours (Table) 10/30/23 19:44 Blood Culture - Preliminary Blood Assessment and Plan Assessment: Acute sepsis secondary to C. difficile colitis and pseudomonal urinary tract infection, patient has been treated with cefepime, he is now on vancomycin orally 500 mg 4 times daily Flagyl 500 mg 3 times daily and on dificid 200 mg p.o. twice daily patient is receiving vancomycin enema Doubt toxic megacolon at this point. CT scan of the abdomen reveals ongoing pancolitis. Severe wall thickening along the right side of the colon present previously. Worsening generalized anasarca change now with trace pleural effusions and mild ascites. Interval placement of a right ureteral stent Hypovolemic hyponatremia secondary to diarrhea. Improved with hydration and fluid boluses History of congestive heart failure with preserved ejection fraction, continue to hold diuretics Obstructive uropathy and hydronephrosis requiring cystoscopy and right ureteral stent insertion on 10/30/23 Morbid obesity History of obstructive sleep apnea Generalized weakness, multifactorial. Plan: The patient was seen and evaluated CT scan of the abdomen reviewed Labs and medications reviewed Antibiotics per ID service Stable and on room air Transfer to regular medical floor We will continue to follow I have personally seen and examined the patient, performed the documentation and the assessment and plan as written. Number of minutes spent on the visit: 10.
--- NOTE | 2023-11-02 12:31 | P.PN ---
Subjective Progress Note Date: 11/02/23 77-year-old male with medical history of hypertension, urinary retention requiring frequent straight cath, obesity class III, restless leg syndrome, chronic systolic heart failure with ejection fraction 40 to 45% presented for evaluation of generalized weakness. Patient says that he has been having troub le ambulating due to lower extremity weakness over quite some time, but this has gotten significantly worse over the past week. He lives at home with his and daughter, who he says were unable to help him with transfers, prompting him to come to the emergency room for further evaluation. Yesterday, he was in the emergency room and was found to have a likely urinary tract infection, and was s tarted on cephalexin. He does report some suprapubic pain. But he denies fevers, chills. In the emergency room, patient was afebrile, 134/65, heart rate 80, 95% on room air. CBC was remarkable for leukocytosis to 14.4. Basic metabolic panel showed sodium of 134. Liver function tests were unremarkable. TSH was 0.613. UA from this ER visit was contaminated, prior ER visit UA was reviewed which did demonstrate large leukocyte esterase, small amount of blood, 1+ ketones, 1+ protein, greater than 182 white blood cells, white blood cell clumps were present, many bacteria. Influenza A, B, RSV, COVID were negative. EKG shows low QRS voltage throughout, left axis deviation. Chest x-ray demonstrates low lung volumes, cardiomegaly, pulmonary vascular congestion and a reticular pattern consistent with volume overload. 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 Patient was started on Cefepime (03/27) for treatment of complicated UTI. UCx came back with pseudomonas. RN noted melanotic stools. Stool occult blood negative. C. diff came back positive. Started on Flagyl IV and Vancomycin PO on 10/28 and 10/29, ID consulted. CT AP ordered 10/29 showing severe pancolitis with colonic distention up to 7.5 cm, 1 cm right UPJ stone with early obstructive uropathy. Urology consulted, underwent cystoscopy, right ureteral stent insertion on 5/10. Concerns for toxic megacolon, patient placed NPO, General surgery consulted. Transferred to ICU, started on Fidaxomicin and Vancomycin enema on 10/30. 11/01 Patient was seen and examined in the ICU. Feeling less lethargic. Abdominal pain more improved. Maintained on Cefepime 2g IV BID (started 03/27 for pseudomonal UTI), Vancomycin 500 mg PO QID (started 10/28), Flagyl 500 mg IV TID (started 10/29). Started on Vancomycin enemas and Fidaxomicin 200 mg PO BID (10/30). Repeat CT done yesterday shows ongoing pancolitis, generalized anasarca, interval placement of right ureteral stent, possible malpositioned Roy with balloon inflated within the upper prostate gland. CBC shows WBC 53.3, RBC 4.13, MCV 101.8. BMP Na 129, Cl 109, bicarb 17, BUN 51, glu 116, Ca 7.5. General: more awake, no distress, appears at stated age, obese Derm: warm, dry Head: atraumatic, normocephalic, symmetric Eyes: EOMI, no lid lag, anicteric sclera Mouth: no lip lesion, mucus membranes moist Cardiovascular: S1S2 reg, no murmur Lungs: Decreased BS bilateral, no rhonchi, no rales , no accessory muscle use Abd: Obese. Tenderness to plapation in all 4 quadrants worse in the RLQ without rebound (improved). Fecal management system in place. + Roy Ext: no gross muscle atrophy, no edema, no contractures Neuro: no focal neuro deficits Psych: Alert, oriented, appropriate affect Sepsis due to C. diff colitis and Pseudomonal UTI: Cefepime 2g IV BID (started 03/27 for pseudomonal UTI), Vancomycin 500 mg PO QID and Flagyl 500 mg IV TID (started 10/28 and 10/29 for C. diff colitis). Fidaxomicin 200 mg PO BID (started 10/30). Vancomycin enema Q6H (started 10/30). BCx negative. NS cut down to 50 cc/hr. ID on board. Toxic megacolon: Patient placed NPO. Surgery on board. Antibiotics to treat C. diff as above. ICU transfer for closer monitoring. Repeat CT Abd ordered by Surgery. Hyponatremia, prerenal azotemia and metabolic acidosis likely related to severe diarrhea: Lactic acid 1.8. IV hydration as above. Diastolic CHF: EF 55% with G1DD. Lasix, Aldactone, and losartan held due to hypotension. Low QRS voltage on EKG: Urine kappa light 6.17 and urine free lambda light 0.68. Free kappa LC quant was 2.06. Hematology consulted, likely a normal variant. Hematology outpatient. Obstructive uropathy due to right UPJ stone: Status post cystoscopy, right ureteral stent insertion on 10/29. Maintain roy catheter. Doxazosin 8 mg PO QHS. Urology on board. Obesity Class III: Structed weight loss program. Candidal Cellulitis in the suprapubic area: Nystatin powder Generalized weakness: Fall precautions. PT OT on board. PRM recommends IPR on discharge. CODE STATUS: FULL CODE DVT Prophylaxis: Heparin SQ GI Prophylaxis: Protonix IV Designated medical POA if patient is not able to make medical decisions for the mselves: I have reviewed the following design sales consultant notes: Surgery, Pulmonary, Urology I have reviewed the results of the following tests: CBC, BMP, CT AP I have ordered the following tests: CBC, BMP, Mag tomorrow. I have discussed the care of this patient with the following independent historian: ANA. I have independently interpreted the following test below: I have discussed the management of this patient with the following physician: Objective - Vital Signs Vital signs: Vital Signs Temp 97.5 F L 11/02/23 04:00 Pulse 77 11/02/23 07:00 Resp 18 11/02/23 07:00 BP 119/65 11/02/23 07:00 Pulse Ox 99 11/02/23 07:00 FiO2 Intake & Output 11/01/23 11/02/23 11/02/23 18:59 06:59 18:59 Intake Total 1400 1400 Output Total 580 590 Balance 820 810 Weight 152.861 kg Intake: IV 1400 Cefepime 2 gm In Sodium 100 Chloride 0.9% 100 ml @ 25 mls/hr IVPB Q12HR [facility] Rx #:[id number] Sodium Chloride 0.9% 1, 1200 000 ml @ 100 mls/hr IV . Q10H [facility] Rx#:[id number] metroNIDAZOLE-NS PMX 500 100 mg In Saline 1 100ml.bag @ 100 mls/hr IVPB Q8H [facility] Rx#:[id number] Intake, IV Titration 1400 Amount Cefepime 2 gm In Sodium 100 Chloride 0.9% 100 ml @ 25 mls/hr IVPB Q12HR [facility] Rx #:[id number] Sodium Chloride 0.9% 1, 1100 000 ml @ 100 mls/hr IV . Q10H [facility] Rx#:[id number] metroNIDAZOLE-NS PMX 500 200 mg In Saline 1 100ml.bag @ 100 mls/hr IVPB Q8H [facility] Rx#:[id number] Output: Urine 580 590 Other: Voiding Method Indwelling Catheter Indwelling Catheter ABP, PAP, CO, CI - Last Documented Arterial Blood Pressure 73/52 - Labs CBC & Chem 7: 11/02/23 07:45 11/02/23 07:45 Labs: Abnormal Lab Results - Last 24 Hours (Table) 11/02/23 11/02/23 Range/Units 07:45 07:45 WBC 53.3 H* (3.8-10.6) k/uL RBC 4.13 L (4.30-5.90) m/uL MCV 101.8 H (80.0-100.0) fL Sodium 129 L (137-145) mmol/L Chloride 109 H (98-107) mmol/L Carbon Dioxide 17 L (22-30) mmol/L BUN 51 H (9-20) mg/dL Glucose 116 H (74-99) mg/dL Calcium 7.5 L (8.4-10.2) mg/dL Microbiology - Last 24 Hours (Table) 10/30/23 19:44 Blood Culture - Preliminary Blood
--- NOTE | 2023-11-02 14:36 | P.PN ---
Subjective Progress Note Date: 11/02/23 Mr. Keene lives with his and anna in 1 story home with 5 ISATU. At home he is very independent, uses a can to walk. 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 He is significantly below functional level currently. 77-year-old male with medical history of hypertension, urinary retention re quiring frequent straight cath, obesity class III, restless leg syndrome, chronic systolic heart failure with ejection fraction 40 to 45% presented to ED with generalized weakness that was worsening at home. Influenza A, B, RSV, COVID were negative. He was admitted for complicated urinary tract infection with a history of multidrug-resistant E. coli. Urine cx positive for pseudomonas. Patient also developed c. diff colitis for which he is on treatment. He is in the ICU 11/02/23: He is still very weak, having difficulty lifting his legs off the table. Hasn't worked with therapies recently. Some SOB "from obesity," denies CP. Abdominal pain stable. Denies other pain complaints. Objective - Vital Signs Vital signs: Vital Signs Temp 97.8 F 11/02/23 12:00 Pulse 80 11/02/23 14:00 Resp 20 11/02/23 14:00 BP 141/83 11/02/23 14:00 Pulse Ox 97 11/02/23 14:00 FiO2 Intake & Output 11/01/23 11/02/23 11/02/23 18:59 06:59 18:59 Intake Total 1400 1400 450 Output Total 303 436 6466 Balance 820 810 -815 Weight 152.861 kg Intake: IV 1400 450 Cefepime 2 gm In Sodium 100 Chloride 0.9% 100 ml @ 25 mls/hr IVPB Q12HR [facility] Rx #:[id number] Sodium Chloride 0.9% 1, 1200 350 000 ml @ 100 mls/hr IV . Q10H [facility] Rx#:[id number] metroNIDAZOLE-NS PMX 500 100 100 mg In Saline 1 100ml.bag @ 100 mls/hr IVPB Q8H [facility] Rx#:[id number] Intake, IV Titration 1400 Amount Cefepime 2 gm In Sodium 100 Chloride 0.9% 100 ml @ 25 mls/hr IVPB Q12HR [facility] Rx #:[id number] Sodium Chloride 0.9% 1, 1100 000 ml @ 100 mls/hr IV . Q10H [facility] Rx#:[id number] metroNIDAZOLE-NS PMX 500 200 mg In Saline 1 100ml.bag @ 100 mls/hr IVPB Q8H [facility] Rx#:[id number] Output: Urine 580 590 465 Stool 800 Other: Voiding Method Indwelling Catheter Indwelling Catheter Indwelling Catheter ABP, PAP, CO, CI - Last Documented Arterial Blood Pressure 73/52 General: Well-developed, appears weak, lying in bed Cardiovascular: Regular rate Respiratory: Even and unlabored respirations on NC Gastrointestinal: Soft, + flexi seal Genitourinary: +roy Skin: Skin intact where visible to head, neck, and bilateral upper and lower ex tremities Neurological: Alert and oriented x 3 Speech is clear, fluent. Follows 3 step commands. Normal bulk and tone of all muscles without atrophy B/L UE are 4/5 proximally, 5/5 distally B/L LE HF 2/5, KE 3/5 Sensation light touch intact bilateral UE/LE Extremities: B/L calves are supple, non-tender, no cords; + LE edema Psychiatric: Calm and cooperative - Labs CBC & Chem 7: 11/02/23 07:45 11/02/23 07:45 Labs: Abnormal Lab Results - Last 24 Hours (Table) 11/02/23 11/02/23 Range/Units 07:45 07:45 WBC 53.3 H* (3.8-10.6) k/uL RBC 4.13 L (4.30-5.90) m/uL MCV 101.8 H (80.0-100.0) fL Neutrophils # (Manual) 46.30 H (1.3-7.7) k/uL Monocytes # (Manual) 2.13 H (0-1.0) k/uL Metamyelocytes # (Man) 1.60 H (0) k/uL Myelocytes # (Manual) 1.07 H (0) k/uL Sodium 129 L (137-145) mmol/L Chloride 109 H (98-107) mmol/L Carbon Dioxide 17 L (22-30) mmol/L BUN 51 H (9-20) mg/dL Glucose 116 H (74-99) mg/dL Calcium 7.5 L (8.4-10.2) mg/dL Microbiology - Last 24 Hours (Table) 10/30/23 19:44 Blood Culture - Preliminary Blood Assessment and Plan Assessment: # Generalized weakness secondary to complicated UTI as well as C.Diff infection -has roy and flexicile -continue PT/OT for mobilization, last worked with him 10/28/23 # Acute sepsis secondary to Cdiff adn pseudomonal UTI. #Complicated UTI with pseudomonus -continue abx per ID #C difficile colitis -continue abx per ID # Hx of Urinary retention requiring straight cath # Obstructive uropathy and hyrdonephrosis requiring cystoscopy and right ureteral stent 10/30/23. -maintain roy catheter #History of systolic heart failure with an ejection fraction of 40 to 45%, septal hypokinesis, and severe left concentric hypertrophy -Continue lasix 40mg IV daily per primary, cardiology following #Obesity Class III #Hypertension #Pain mgmt. -acetaminophen 650 mg q6h prn #Low vit D -continue supplementation Recommendations: - per your medical management - continue PT/OT - If can participate in 3hrs/day therapies, may be appropriate for IPR. Would like to see updated therapy notes. Will continue to follow.
--- NOTE | 2023-11-02 15:49 | P.PN ---
Subjective Progress Note Date: 11/02/23 CHIEF COMPLAINT: C. difficile colitis HISTORY OF PRESENT ILLNESS: Patient remains in the ICU. He does have diffuse abdominal pain. Patient reports the pain is decreasing. He continues to have diarrhea has FMS in place. CT scan reports ongoing pancolitis. WBC still elevated but trending down from 65.9-53. Patient does report that he is hungry. Afebrile. PHYSICAL EXAM: VITAL SIGNS: Reviewed. GENERAL: no acute distress. ABDOMEN: Soft. Obese. Nondistended. Mild tenderness right side of abdomen NEUROLOGIC: Alert and oriented. Cranial nerves II through XII grossly intact. ASSESSMENT: 1. Severe C. difficile colitis PLAN: -Continue to observe -Keep patient n.p.o. -Continue C. difficile treatment Physician Cabin Cleaner note has been reviewed by physician. Signing provider agrees with the documented findings, assessment, and plan of care. Objective - Vital Signs Vital signs: Vital Signs Temp 97.8 F 11/02/23 12:00 Pulse 80 11/02/23 15:00 Resp 20 11/02/23 14:00 BP 125/58 11/02/23 15:00 Pulse Ox 98 11/02/23 15:00 FiO2 Intake & Output 11/01/23 11/02/23 11/02/23 18:59 06:59 18:59 Intake Total 1400 1400 500 Output Total 310 626 3157 Balance 820 810 -890 Weight 152.861 kg Intake: IV 1400 500 Cefepime 2 gm In Sodium 100 Chloride 0.9% 100 ml @ 25 mls/hr IVPB Q12HR [facility] Rx #:[id number] Sodium Chloride 0.9% 1, 1200 400 000 ml @ 100 mls/hr IV . Q10H [facility] Rx#:[id number] metroNIDAZOLE-NS PMX 500 100 100 mg In Saline 1 100ml.bag @ 100 mls/hr IVPB Q8H [facility] Rx#:[id number] Intake, IV Titration 1400 Amount Cefepime 2 gm In Sodium 100 Chloride 0.9% 100 ml @ 25 mls/hr IVPB Q12HR [facility] Rx #:[id number] Sodium Chloride 0.9% 1, 1100 000 ml @ 100 mls/hr IV . Q10H [facility] Rx#:[id number] metroNIDAZOLE-NS PMX 500 200 mg In Saline 1 100ml.bag @ 100 mls/hr IVPB Q8H [facility] Rx#:[id number] Output: Urine 580 590 590 Stool 800 Other: Voiding Method Indwelling Catheter Indwelling Catheter Indwelling Catheter ABP, PAP, CO, CI - Last Documented Arterial Blood Pressure 73/52 - Labs CBC & Chem 7: 11/02/23 07:45 11/02/23 07:45 Labs: Abnormal Lab Results - Last 24 Hours (Table) 11/02/23 11/02/23 Range/Units 07:45 07:45 WBC 53.3 H* (3.8-10.6) k/uL RBC 4.13 L (4.30-5.90) m/uL MCV 101.8 H (80.0-100.0) fL Neutrophils # (Manual) 46.30 H (1.3-7.7) k/uL Monocytes # (Manual) 2.13 H (0-1.0) k/uL Metamyelocytes # (Man) 1.60 H (0) k/uL Myelocytes # (Manual) 1.07 H (0) k/uL Sodium 129 L (137-145) mmol/L Chloride 109 H (98-107) mmol/L Carbon Dioxide 17 L (22-30) mmol/L BUN 51 H (9-20) mg/dL Glucose 116 H (74-99) mg/dL Calcium 7.5 L (8.4-10.2) mg/dL Microbiology - Last 24 Hours (Table) 10/30/23 19:44 Blood Culture - Preliminary Blood
[2023-11-03 12:54] LABS: African American GFR (CKD) >90 (>60 ml/min/1.73 sqM); Anion Gap 5 mmol/L; Blood Urea Nitrogen 47 mg/dL (9-20); Calcium 7.5 mg/dL (8.4-10.2); Carbon Dioxide 14 mmol/L (22-30); Chloride 109 mmol/L (98-107); Glucose 142 mg/dL (74-99); Magnesium 2.2 mg/dL (1.6-2.3); Non-African American GFR(CKD) 83 (>60 ml/min/1.73 sqM); Potassium 4.1 mmol/L (3.5-5.1); Sodium 128 mmol/L (137-145)
--- NOTE | 2023-11-03 13:17 | P.PN ---
Subjective Progress Note Date: 11/03/23 Principal diagnosis: Diarrhea. This is a 77-year-old white male with history of hypertension, obesity, chronic urinary retention, chronic systolic congestive heart failure with ejection fraction of 40 to 45%, patient was admitted to the hospital on 10/26/2023, his chief complaint was mostly a complaint of generalized weakness. Patient has been noticing more difficulty ambulating due to profound weakness in his lower extremities over quite some time. Patient got to the point where he could not help himself with transfers. Brought into the ER, and the patient was found to have a urinary tract infection and he was treated with antibiotics/cephalosporins. Since then, the patient was seen by many consultants including infectious disease, urology, and now the patient is being seen by general surgery. He was also seen by oncology. Infectious disease felt that the patient presented with sepsis secondary to urinary tract infection and his urine cultures came back positive for Pseudomonas aeruginosa. Apparently the patient went on to develop C. difficile colitis, and he developed severe diarrhea. Patient was treated with oral vancomycin, but went on to develop wors ening abdominal discomfort and diarrhea in spite of oral vancomycin, CT of the abdomen and pelvis done yesterday showed evidence of pancolitis with colonic distention up to 7.5 cm there was no evidence of free air. There was also evidence of 1 cm stone at the right UPJ junction. And the patient was felt to have possibly early obstructive uropathy. There was also another 1.4 cm nonobstructive right renal stone. Patient was seen by urology, and he underwent cystoscopy and right ureteral stent insertion. Today the patient was seen by general surgery on consultation, and became quite concerned about his colonic distention as the patient may be developing a toxic megacolon. Hence recommende d transfer to the ICU. I did evaluate the patient on the floor, he is on room air, comfortable, blood pressure is soft, patient is not in any distress but he does seem to be a bit lethargic, and profoundly weak. Hence recommended that we monitor the patient in the ICU and I transferred the patient after my evaluation. Labs today showed significant leukocytosis/leukemoid reaction with WBC count of 65.5, hemoglobin 13.7. Sodium is a bit low at 127 BUN is 52 creatinine 1.35, bicarb is 18 anion gap is normal. Lactic acid yesterday was 1.8. Patient was reevaluated today on 11/01/2023, patient remains in the ICU, he made a significant clinical improvement over the last 24 hours. Blood pressure remained stable patient denies any nausea vomiting abdominal pain, his clinical abdominal findings seem to be benign today. Patient remains on IV fluid at 100 cc/h in the form of 0.9 normal saline, he has a fecal system in place and has no evidence of bleeding, stools are loose, no GI bleeding, and no black or tarry stools. Continues to have leukocytosis/leukemoid reaction with WBC count of 6 5.9 hemoglobin 15.8 sodium is better today up to 129 bicarb remains a bit low at 16 BUN is 53 creatinine 1.04, improved compared to yesterday creatinine of 1.35. Patient did receive the fluid boluses yesterday for slightly elevated lactic acid. And clearly the patient does not need surgical intervention at this point. Lactic acid yesterday was 1.2 went down from 1.8. Flatplate of the abdomen yesterday showed nonspecific bowel gas pattern without radiographic evidence of acute process. The patient is seen today November 02, 2023 in follow-up in the intensive care unit. He is currently awake and alert in no acute distress. He is maintaining good O2 saturations in the 90s on room air. He has normal staying at 100 MLS per hour. He remains on oral vancomycin, cefepime, Flagyl, Dificid for his C. difficile colitis and urinary tract infection. He did undergo ureteral stenting on 10/30/2023. Urine culture was positive for Pseudomonas aeruginosa. Blood cultures revealing no growth. White count 53.3. Hemoglobin 13.3. Platelets 289. Sodium 129. Potassium 3.8. Bicarb 17. BUN 51. Creatinine 0.99. Glucose 116. He is afebrile. Hemodynamically stable. Progress note dated November 03, 2023. The patient is seen today in room 369. Yesterday, he was in the intensive care unit. Currently, he is on room air. He is getting saline at 50 cc an hour. They discovered Pseudomonas in his urine, and he did test positive for C. difficile. He is now on a clear liquid diet. A fecal management system is in place. The patient is still having some abdominal discomfort. Clinically, he looks much more stable. Current labs include a sodium 128, potassium 4.1, chlorides 109, CO2 14, BUN 47, and creatinine 0.90. Glucose is 142. Calcium 7.5, magnesium 2.2. The urine was positive for Pseudomonas on October 25. , The patient is on cefepime, Questran, Dificid, Flagyl, vancomycin orally, etc. Objective - Vital Signs Vital signs: Vital Signs Temp 97.6 F 11/03/23 08:15 Pulse 81 11/03/23 08:15 Resp 20 11/03/23 08:15 BP 122/63 11/03/23 08:15 Pulse Ox 95 11/03/23 08:15 FiO2 Intake & Output 11/02/23 11/03/23 11/03/23 18:59 06:59 18:59 Intake Total 500 20 Output Total 1390 Balance -890 20 Intake: IV 500 20 Invasive Line 4 10 Invasive Line 6 10 Sodium Chloride 0.9% 1, 400 000 ml @ 100 mls/hr IV . Q10H [facility] Rx#:[id number] metroNIDAZOLE-NS PMX 500 100 mg In Saline 1 100ml.bag @ 100 mls/hr IVPB Q8H [facility] Rx#:[id number] Output: Urine 590 Stool 800 Other: Voiding Method Indwelling Catheter Indwelling Catheter ABP, PAP, CO, CI - Last Documented Arterial Blood Pressure 73/52 - Exam No acute distress, oriented 3. No respiratory distress. Currently on room air. HEENT examination is grossly unremarkable. Mucous membranes are moist. No oral lesions. Neck supple. Full range of motion. No adenopathy thyromegaly or neck vein distention. Cardiovascular examination reveals regular rhythm rate. S1-S2 normal. No S3 or S4. No discernible murmur noted. Heart sounds are distant. Heart rate 78 bpm. Lungs reveal clear breath sounds. Breath sounds are equal bilaterally. No adventitious lung sounds including wheezes rhonchi or crackles. Room air saturation is 95%. Abdomen soft bowel sounds are heard. No masses or tenderness. Extremities are intact. No cyanosis clubbing or edema. Skin is without rash or lesion. Neurologic examination is brief but nonfocal. - Labs CBC & Chem 7: 11/02/23 07:45 11/03/23 10:54 Labs: Abnormal Lab Results - Last 24 Hours (Table) 11/03/23 Range/Units 10:54 Sodium 128 L (137-145) mmol/L Chloride 109 H (98-107) mmol/L Carbon Dioxide 14 L (22-30) mmol/L BUN 47 H (9-20) mg/dL Glucose 142 H (74-99) mg/dL Calcium 7.5 L (8.4-10.2) mg/dL Microbiology - Last 24 Hours (Table) 10/30/23 19:44 Blood Culture - Preliminary Blood Assessment and Plan Assessment: Acute sepsis secondary to C. difficile colitis and pseudomonal urinary tract infection, patient has been treated with cefepime, he is now on vancomycin orally 500 mg 4 times daily Flagyl 500 mg 3 times daily and on dificid 200 mg p.o. twice daily patient is receiving vancomycin enema. Doubt toxic megacolon at this point. Interval placement of a right ureteral stent. Hypovolemic hyponatremia secondary to diarrhea. History of congestive heart failure with preserved ejection fraction. Obstructive uropathy and hydronephrosis requiring cystoscopy and right ureteral stent insertion on 10/30/23. Morbid obesity. History of obstructive sleep apnea. Generalized weakness, multifactorial. Plan: Plan dated November 03, 2023. The patient continues on appropriate antibiotics for his Pseudomonas urinary tract infection, as well as medications for his C. difficile colitis. The patient has a fecal management system in place. The patient is complaining of diffuse abdominal discomfort from time to time. Clinically, he looks better though. Labs, x-rays, and medications are reviewed. The patient is not re ceiving any supplemental oxygen. He is receiving saline at 50 cc an hour. He has been allowed to resume a clear liquid diet. No additional recommendations are made. We will continue to follow. Prognosis is guarded. Time with Patient: Less than 30
[2023-11-03 13:34] LABS: HCT 42.8 % (39.0-53.0); HGB 13.4 gm/dL (13.0-17.5); MCH 31.9 pg (25.0-35.0); MCHC 31.3 g/dL (31.0-37.0); Macrocytosis Slight; Platelet Count 274 k/uL (150-450); RBC 4.19 m/uL (4.30-5.90); RDW 14.3 % (11.5-15.5); WBC 38.6 k/uL (3.8-10.6)
--- NOTE | 2023-11-03 14:04 | P.PN ---
Subjective Progress Note Date: 11/03/23 77-year-old male with medical history of hypertension, urinary retention requiring frequent straight cath, obesity class III, restless leg syndrome, chronic systolic heart failure with ejection fraction 40 to 45% presented for evaluation of generalized weakness. Patient says that he has been having troub le ambulating due to lower extremity weakness over quite some time, but this has gotten significantly worse over the past week. He lives at home with his and daughter, who he says were unable to help him with transfers, prompting him to come to the emergency room for further evaluation. Yesterday, he was in the emergency room and was found to have a likely urinary tract infection, and was s tarted on cephalexin. He does report some suprapubic pain. But he denies fevers, chills. In the emergency room, patient was afebrile, 134/65, heart rate 80, 95% on room air. CBC was remarkable for leukocytosis to 14.4. Basic metabolic panel showed sodium of 134. Liver function tests were unremarkable. TSH was 0.613. UA from this ER visit was contaminated, prior ER visit UA was reviewed which did demonstrate large leukocyte esterase, small amount of blood, 1+ ketones, 1+ protein, greater than 182 white blood cells, white blood cell clumps were present, many bacteria. Influenza A, B, RSV, COVID were negative. EKG shows low QRS voltage throughout, left axis deviation. Chest x-ray demonstrates low lung volumes, cardiomegaly, pulmonary vascular congestion and a reticular pattern consistent with volume overload. 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 Patient was started on Cefepime (10/25) for treatment of complicated UTI. UCx came back with pseudomonas. RN noted melanotic stools. Stool occult blood negative. C. diff came back positive. Started on Flagyl IV and Vancomycin PO on 10/28 and 10/29, ID consulted. CT AP ordered 10/29 showing severe pancolitis with colonic distention up to 7.5 cm, 1 cm right UPJ stone with early obstructive uropathy. Urology consulted, underwent cystoscopy, right ureteral stent insertion on 5/10. Concerns for toxic megacolon, patient placed NPO, general surgery consulted. Transferred to ICU, started on Fidaxomicin and Vancomycin enema on 10/30. 11/02 Patient was seen and examined. Feeling less lethargic. No abdominal pain, nausea or vomiting. Maintained on Cefepime 2g IV BID (started 10/25 for pseudomonal UTI), Vancomycin 500 mg PO QID (started 10/28), Flagyl 500 mg IV TID (started 10/29). Started on Vancomycin enemas and Fidaxomicin 200 mg PO BID (started 10/30). CBC shows WBC 38.6, RBC 4.19, MCV 102. BMP Na 128, Cl 109, bicarb 14, BUN 47, glu 142, Ca 7.5. Mag 2.2. Vancomycin trough <5. General: more awake, no distress, appears at stated age, obese Derm: warm, dry Head: atraumatic, normocephalic, symmetric Eyes: EOMI, no lid lag, anicteric sclera Mouth: no lip lesion, mucus membranes moist Cardiovascular: S1S2 reg, no murmur Lungs: Decreased BS bilateral, no rhonchi, no rales , no accessory muscle use Abd: Obese. Tenderness to deep palpation RLQ without rebound (improved). Fecal management system in place. + Roy Ext: no gross muscle atrophy, no edema, no contractures Neuro: no focal neuro deficits Psych: Alert, oriented, appropriate affect Sepsis due to C. diff colitis and Pseudomonal UTI: Cefepime 2g IV BID (started 10/25 for pseudomonal UTI), Vancomycin 500 mg PO QID and Flagyl 500 mg IV TID (started 10/28 and 10/29 for C. diff colitis). Fidaxomicin 200 mg PO BID (started 10/30). Vancomycin enema Q6H (started 10/30). BCx negative. NS at 50 cc/hr. ID on board. 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 Antibiotics to treat C. diff as above. Surgery on board. Hyponatremia, prerenal azotemia and metabolic acidosis likely related to severe diarrhea: Lactic acid 1.8. IV hydration as above. Diastolic CHF: EF 55% with G1DD. Lasix, Aldactone, and losartan held due to hypotension. Low QRS voltage on EKG: Urine kappa light 6.17 and urine free lambda light 0.68. Free kappa LC quant was 2.06. Hematology consulted, likely a normal variant. Hematology outpatient. Obstructive uropathy due to right UPJ stone: Status post cystoscopy, right ureteral stent insertion on 10/29. Maintain roy catheter. Doxazosin 8 mg PO QHS. Urology on board. Obesity Class III: Structed weight loss program. Candidal Cellulitis in the suprapubic area: Nystatin powder Generalized weakness: Fall precautions. PT OT on board. PRM recommends IPR on discharge. CODE STATUS: FULL CODE DVT Prophylaxis: Heparin SQ GI Prophylaxis: Protonix IV Designated medical POA if patient is not able to make medical decisions for themselves: I have reviewed the following customer service consultant notes: Pulmonary I have reviewed the results of the following tests: CBC, BMP, Mag, Vanc trough I have ordered the following tests: CBC, BMP, Mag tomorrow. I have discussed the care of this patient with the following independent historian: I have independently interpreted the following test below: I have discussed the management of this patient with the following physician: Objective - Vital Signs Vital signs: Vital Signs Temp 97.7 F 11/03/23 12:00 Pulse 82 11/03/23 12:00 Resp 18 11/03/23 12:00 BP 119/60 11/03/23 12:00 Pulse Ox 96 11/03/23 12:00 FiO2 Intake & Output 11/02/23 11/03/23 11/03/23 18:59 06:59 18:59 Intake Total 500 20 Output Total 1390 Balance -890 20 Intake: IV 500 20 Invasive Line 4 10 Invasive Line 6 10 Sodium Chloride 0.9% 1, 400 000 ml @ 100 mls/hr IV . Q10H [facility] Rx#:[id number] metroNIDAZOLE-NS PMX 500 100 mg In Saline 1 100ml.bag @ 100 mls/hr IVPB Q8H [facility] Rx#:[id number] Output: Urine 590 Stool 800 Other: Voiding Method Indwelling Catheter Indwelling Catheter ABP, PAP, CO, CI - Last Documented Arterial Blood Pressure 73/52 - Labs CBC & Chem 7: 11/03/23 10:54 11/03/23 10:54 Labs: Abnormal Lab Results - Last 24 Hours (Table) 11/03/23 11/03/23 Range/Units 10:54 10:54 WBC 38.6 H (3.8-10.6) k/uL RBC 4.19 L (4.30-5.90) m/uL MCV 102.0 H (80.0-100.0) fL Sodium 128 L (137-145) mmol/L Chloride 109 H (98-107) mmol/L Carbon Dioxide 14 L (22-30) mmol/L BUN 47 H (9-20) mg/dL Glucose 142 H (74-99) mg/dL Calcium 7.5 L (8.4-10.2) mg/dL Microbiology - Last 24 Hours (Table) 10/30/23 19:44 Blood Culture - Preliminary Blood
--- NOTE | 2023-11-03 14:45 | P.PN ---
Subjective Progress Note Date: 11/01/23 Principal diagnosis: Reason for follow-up is C. difficile colitis UTI and leukocytosis Patient is a 77-year-old male with a past medical history significant for hypertension osteoarthritis sleep apnea reflux patient did have a BPH and self catheterize himself because of urine retention, presented to hospital after a fall with weakness he did have a positive UA and has been treated for a UTI also has significant diarrhea stool for C. difficile came back positive pro mpting this consultation. On today's evaluation that is 11/01/2023, Patient is afebrile patient is c urrently on room air and breathing comfortably does not seem any distress the patient slightly lethargic did not answer any question vomiting has been reported or any worsening output in the fecal management system. The patient white count is 65.9 creatinine 1.04, blood cultures are pending Objective - Vital Signs Vital signs: Vital Signs Temp 98.2 F 11/01/23 08:00 Pulse 86 11/01/23 10:00 Resp 16 11/01/23 10:00 BP 110/56 11/01/23 10:00 Pulse Ox 95 11/01/23 10:00 FiO2 Intake & Output 10/31/23 11/01/23 11/01/23 18:59 06:59 18:59 Intake Total 2700 3200 700 Output Total 150 480 135 Balance 2550 2720 565 Weight 149.6 kg Intake: Intake, IV Titration 2700 3200 700 Amount Cefepime 2 gm In Sodium 100 100 Chloride 0.9% 100 ml @ 25 mls/hr IVPB Q12HR [facility] Rx #:[id number] Sodium Chloride 0.9% 1, 600 1200 500 000 ml @ 100 mls/hr IV . Q10H [facility] Rx#:[id number] Sodium Chloride 0.9% 1, 2000 2000 000 ml @ 999 mls/hr IV . Q1H1M [facility] Rx#:[id number] metroNIDAZOLE-NS PMX 500 100 mg In Saline 1 100ml.bag @ 100 mls/hr IVPB Q8H [facility] Rx#:[id number] Output: Urine 150 480 135 Other: Voiding Method Indwelling Catheter Indwelling Catheter Indwelling Catheter ABP, PAP, CO, CI - Last Documented Arterial Blood Pressure 73/52 - Exam GENERAL DESCRIPTION: An elderly male lying in bed in no distress RESPIRATORY SYSTEM: Unlabored breathing , decreased breath sounds at bases HEART: S1 S2 regular rate and rhythm , ABDOMEN: Soft , mild distention and tenderness EXTREMITIES: No edema feet - Labs CBC & Chem 7: 11/03/23 10:54 11/03/23 10:54 Labs: Abnormal Lab Results - Last 24 Hours (Table) 11/01/23 11/01/23 Range/Units 05:31 05:31 WBC 65.9 H* (3.8-10.6) k/uL Sodium 129 L (137-145) mmol/L Chloride 108 H (98-107) mmol/L Carbon Dioxide 16 L (22-30) mmol/L BUN 53 H (9-20) mg/dL Glucose 108 H (74-99) mg/dL Calcium 7.4 L (8.4-10.2) mg/dL Microbiology - Last 24 Hours (Table) 10/30/23 19:44 Blood Culture - Preliminary Blood 10/26/23 13:28 Blood Culture - Final Blood 10/26/23 13:20 Blood Culture - Final Blood Assessment and Plan (1) C. difficile colitis Current Visit: Yes Status: Acute Priority: Medium Code(s): A04.72 - ENTEROCOLITIS D/T CLOSTRIDIUM DIFFICILE, NOT SPCF RECUR SNOMED Code(s): 798388842 (2) Leukocytosis Current Visit: Yes Status: Acute Priority: Medium Code(s): D72.829 - ELEVATED WHITE BLOOD CELL COUNT, UNSPECIFIED SNOMED Code(s): 098079300 (3) Urinary tract infection Current Visit: Yes Status: Acute Priority: Medium Code(s): N39.0 - URINARY TRACT INFECTION, SITE NOT SPECIFIED SNOMED Code(s): 67169634 Plan: 1patient with a complicated history and this patient initially presented to the hospital with sepsis as the patient did have a fever elevated white count source likely UTI with urine culture finalized with Pseudomonas aeruginosa, patient did have a CT abdominal pelvis CT shows evidence of hydronephrosis and ureteral stone in this patient who is status post cystoscopy and ureteral stent placement patient is currently covered with the cefepime concerning for pyelonephritis/complicated UTI which will be continued for short course 2patient also have severe C. difficile colitis with significant elevated white count currently on maximum dose of oral vancomycin and IV Flagyl to continue along with bowel rest and monitor clinical course closely Dictation was produced using [employer] dictation software. please excuse any grammatical, word or spelling errors. Time with Patient: Less than 30
--- NOTE | 2023-11-03 14:46 | P.PN ---
Subjective Progress Note Date: 11/02/23 Principal diagnosis: Reason for follow-up is C. difficile colitis UTI and leukocytosis Patient is a 77-year-old male with a past medical history significant for hypertension osteoarthritis sleep apnea reflux patient did have a BPH and self catheterize himself because of urine retention, presented to hospital after a fall with weakness he did have a positive UA and has been treated for a UTI also has significant diarrhea stool for C. difficile came back positive pro mpting this consultation. On today's evaluation that is 11/02/2023, patient has been afebrile, patient is breathing comfortably and is currently on room air, patient does not seem to be any distressed no vomiting has been reported by nursing staff has about 800 cc output in the fecal management system as reported by the nursing staff. The patient white count is down to 53.3 creatinine 0.99 Objective - Vital Signs Vital signs: Vital Signs Temp 97.9 F 11/02/23 08:00 Pulse 76 11/02/23 12:00 Resp 20 11/02/23 12:00 BP 128/64 11/02/23 12:00 Pulse Ox 96 11/02/23 12:00 FiO2 Intake & Output 11/01/23 11/02/23 11/02/23 18:59 06:59 18:59 Intake Total 1400 1400 400 Output Total 580 590 325 Balance 820 810 75 Weight 152.861 kg Intake: IV 1400 400 Cefepime 2 gm In Sodium 100 Chloride 0.9% 100 ml @ 25 mls/hr IVPB Q12HR [facility] Rx #:[id number] Sodium Chloride 0.9% 1, 1200 300 000 ml @ 100 mls/hr IV . Q10H [facility] Rx#:[id number] metroNIDAZOLE-NS PMX 500 100 100 mg In Saline 1 100ml.bag @ 100 mls/hr IVPB Q8H [facility] Rx#:[id number] Intake, IV Titration 1400 Amount Cefepime 2 gm In Sodium 100 Chloride 0.9% 100 ml @ 25 mls/hr IVPB Q12HR [facility] Rx #:[id number] Sodium Chloride 0.9% 1, 1100 000 ml @ 100 mls/hr IV . Q10H [facility] Rx#:[id number] metroNIDAZOLE-NS PMX 500 200 mg In Saline 1 100ml.bag @ 100 mls/hr IVPB Q8H [facility] Rx#:[id number] Output: Urine 580 590 325 Other: Voiding Method Indwelling Catheter Indwelling Catheter Indwelling Catheter ABP, PAP, CO, CI - Last Documented Arterial Blood Pressure 73/52 - Exam GENERAL DESCRIPTION: An elderly male lying in bed in no distress RESPIRATORY SYSTEM: Unlabored breathing , decreased breath sounds at bases HEART: S1 S2 regular rate and rhythm , ABDOMEN: Soft , mild distention and tenderness EXTREMITIES: No edema feet - Labs CBC & Chem 7: 11/03/23 10:54 11/03/23 10:54 Labs: Abnormal Lab Results - Last 24 Hours (Table) 11/02/23 11/02/23 Range/Units 07:45 07:45 WBC 53.3 H* (3.8-10.6) k/uL RBC 4.13 L (4.30-5.90) m/uL MCV 101.8 H (80.0-100.0) fL Neutrophils # (Manual) 46.30 H (1.3-7.7) k/uL Monocytes # (Manual) 2.13 H (0-1.0) k/uL Metamyelocytes # (Man) 1.60 H (0) k/uL Myelocytes # (Manual) 1.07 H (0) k/uL Sodium 129 L (137-145) mmol/L Chloride 109 H (98-107) mmol/L Carbon Dioxide 17 L (22-30) mmol/L BUN 51 H (9-20) mg/dL Glucose 116 H (74-99) mg/dL Calcium 7.5 L (8.4-10.2) mg/dL Microbiology - Last 24 Hours (Table) 10/30/23 19:44 Blood Culture - Preliminary Blood Assessment and Plan (1) C. difficile colitis Current Visit: Yes Status: Acute Priority: Medium Code(s): A04.72 - ENTEROCOLITIS D/T CLOSTRIDIUM DIFFICILE, NOT SPCF RECUR SNOMED Code(s): 682387893 (2) Leukocytosis Current Visit: Yes Status: Acute Priority: Medium Code(s): D72.829 - ELEVATED WHITE BLOOD CELL COUNT, UNSPECIFIED SNOMED Code(s): 147307698 (3) Urinary tract infection Current Visit: Yes Status: Acute Priority: Medium Code(s): N39.0 - URINARY TRACT INFECTION, SITE NOT SPECIFIED SNOMED Code(s): 57293076 Plan: 1patient with a complicated history and this patient initially presented to the hospital with sepsis as the patient did have a fever elevated white count source likely UTI with urine culture finalized with Pseudomonas aeruginosa, patient did have a CT abdominal pelvis CT shows evidence of hydronephrosis and ureteral stone in this patient who is status post cystoscopy and ureteral stent placement patient is currently covered with the cefepime concerning for pyelonephritis/complicated UTI which will be continued for short course 2patient did have severe C. difficile colitis with significant elevated white count which seem to be trending down for now continue with the oral vancomycin and IV Flagyl and avoid antimotility agent Dictation was produced using [employer] dictation software. please excuse any grammatical, word or spelling errors. Time with Patient: Less than 30
--- NOTE | 2023-11-03 14:50 | P.PN ---
Subjective Progress Note Date: 11/03/23 Principal diagnosis: Reason for follow-up is C. difficile colitis UTI and leukocytosis Patient is a 77-year-old male with a past medical history significant for hypertension osteoarthritis sleep apnea reflux patient did have a BPH and self catheterize himself because of urine retention, presented to hospital after a fall with weakness he did have a positive UA and has been treated for a UTI also has significant diarrhea stool for C. difficile came back positive pro mpting this consultation. On today's evaluation that is 11/03/2023,the patient has been moved out of the ICU, patient is more awake alert today and denies any fever or any chills, patient is breathing comfortably on room air, the patient denies chest pain shortness of breath and no significant cough, patient denies abdominal pain, still have the fecal management system however has only 450 mL output since morning as per the nursing staff. Patient white count is down to 38.6 creatinine is 0.9 Objective - Vital Signs Vital signs: Vital Signs Temp 97.7 F 11/03/23 12:00 Pulse 82 11/03/23 12:00 Resp 18 11/03/23 12:00 BP 119/60 11/03/23 12:00 Pulse Ox 96 11/03/23 12:00 FiO2 Intake & Output 11/02/23 11/03/23 11/03/23 18:59 06:59 18:59 Intake Total 500 270 Output Total 1390 1150 Balance -890 -880 Intake: IV 500 30 Invasive Line 4 10 Invasive Line 6 20 Sodium Chloride 0.9% 1, 400 000 ml @ 100 mls/hr IV . Q10H EDWIN Rx#:[id number] metroNIDAZOLE-NS PMX 500 100 mg In Saline 1 100ml.bag @ 100 mls/hr IVPB Q8H EDWIN Rx#:[id number] Oral 240 Output: Urine 590 1150 Stool 800 Other: Voiding Method Indwelling Catheter Indwelling Catheter Indwelling Catheter ABP, PAP, CO, CI - Last Documented Arterial Blood Pressure 73/52 - Exam GENERAL DESCRIPTION: An elderly male lying in bed in no distress RESPIRATORY SYSTEM: Unlabored breathing , decreased breath sounds at bases HEART: S1 S2 regular rate and rhythm , ABDOMEN: Soft , mild distention and tenderness EXTREMITIES: No edema feet - Labs CBC & Chem 7: 11/03/23 10:54 11/03/23 10:54 Labs: Abnormal Lab Results - Last 24 Hours (Table) 11/03/23 11/03/23 Range/Units 10:54 10:54 WBC 38.6 H (3.8-10.6) k/uL RBC 4.19 L (4.30-5.90) m/uL MCV 102.0 H (80.0-100.0) fL Sodium 128 L (137-145) mmol/L Chloride 109 H (98-107) mmol/L Carbon Dioxide 14 L (22-30) mmol/L BUN 47 H (9-20) mg/dL Glucose 142 H (74-99) mg/dL Calcium 7.5 L (8.4-10.2) mg/dL Microbiology - Last 24 Hours (Table) 10/30/23 19:44 Blood Culture - Preliminary Blood Assessment and Plan (1) C. difficile colitis Current Visit: Yes Status: Acute Priority: Medium Code(s): A04.72 - ENTEROCOLITIS D/T CLOSTRIDIUM DIFFICILE, NOT SPCF RECUR SNOMED Code(s): 952748381 (2) Leukocytosis Current Visit: Yes Status: Acute Priority: Medium Code(s): D72.829 - ELEVATED WHITE BLOOD CELL COUNT, UNSPECIFIED SNOMED Code(s): 578514163 (3) Urinary tract infection Current Visit: Yes Status: Acute Priority: Medium Code(s): N39.0 - URINARY TRACT INFECTION, SITE NOT SPECIFIED SNOMED Code(s): 63235873 Plan: 1patient with a complicated history and this patient initially presented to the hospital with sepsis as the patient did have a fever elevated white count source likely UTI with urine culture finalized with Pseudomonas aeruginosa, patient did have a CT abdominal pelvis CT shows evidence of hydronephrosis and ureteral stone in this patient who is status post cystoscopy and ureteral stent placement patient is currently covered with the cefepime concerning for pyelonephritis/complicated UTI which will be continued for short course 2patient did have severe C. difficile colitis with significant elevated white count which is slowly trending down down to 38,000 patient also have decreased output in his fecal management system continue with the oral vancomycin as well as enema, IV Flagyl and monitor clinical course closely Dictation was produced using [employer] dictation software. please excuse any grammatical, word or spelling errors. Time with Patient: Less than 30
--- NOTE | 2023-11-03 17:12 | P.PN ---
Subjective Progress Note Date: 11/03/23 CHIEF COMPLAINT: C. difficile colitis HISTORY OF PRESENT ILLNESS: Patient was transferred out of the ICU yesterday. He has tolerated the clear liquids. Patient does report a little bloated after eating. Still has FMS in place. Denies any abdominal pain. Denies any nausea or vomiting. WBC is down from 53.3-38.6 PHYSICAL EXAM: VITAL SIGNS: Reviewed. GENERAL: no acute distress. ABDOMEN: Soft. Obese. Nondistended. Nontender NEUROLOGIC: Alert and oriented. Cranial nerves II through XII grossly intact. ASSESSMENT: 1. Severe C. difficile colitis PLAN: -Advance diet to full liquid -Continue to monitor -Continue C. difficile treatment Physician [employer] Care[employer] Instructor note has been reviewed by physician. Signing provider agrees with the documented findings, assessment, and plan of care. Objective - Vital Signs Vital signs: Vital Signs Temp 97.7 F 11/03/23 12:00 Pulse 82 11/03/23 12:00 Resp 18 11/03/23 12:00 BP 119/60 11/03/23 12:00 Pulse Ox 96 11/03/23 12:00 FiO2 Intake & Output 11/02/23 11/03/23 11/03/23 18:59 06:59 18:59 Intake Total 500 270 Output Total 1390 1150 Balance -890 -880 Intake: IV 500 30 Invasive Line 4 10 Invasive Line 6 20 Sodium Chloride 0.9% 1, 400 000 ml @ 100 mls/hr IV . Q10H EDWIN Rx#:[id number] metroNIDAZOLE-NS PMX 500 100 mg In Saline 1 100ml.bag @ 100 mls/hr IVPB Q8H EDWIN Rx#:[id number] Oral 240 Output: Urine 590 1150 Stool 800 Other: Voiding Method Indwelling Catheter Indwelling Catheter Indwelling Catheter ABP, PAP, CO, CI - Last Documented Arterial Blood Pressure 73/52 - Labs CBC & Chem 7: 11/03/23 10:54 11/03/23 10:54 Labs: Abnormal Lab Results - Last 24 Hours (Table) 11/03/23 11/03/23 Range/Units 10:54 10:54 WBC 38.6 H (3.8-10.6) k/uL RBC 4.19 L (4.30-5.90) m/uL MCV 102.0 H (80.0-100.0) fL Sodium 128 L (137-145) mmol/L Chloride 109 H (98-107) mmol/L Carbon Dioxide 14 L (22-30) mmol/L BUN 47 H (9-20) mg/dL Glucose 142 H (74-99) mg/dL Calcium 7.5 L (8.4-10.2) mg/dL Microbiology - Last 24 Hours (Table) 10/30/23 19:44 Blood Culture - Preliminary Blood
--- NOTE | 2023-11-04 12:00 | P.PN ---
Subjective Progress Note Date: 11/04/23 Principal diagnosis: Diarrhea. This is a 77-year-old white male with history of hypertension, obesity, chronic urinary retention, chronic systolic congestive heart failure with ejection fraction of 40 to 45%, patient was admitted to the hospital on 10/26/2023, his chief complaint was mostly a complaint of generalized weakness. Patient has been noticing more difficulty ambulating due to profound weakness in his lower extremities over quite some time. Patient got to the point where he could not help himself with transfers. Brought into the ER, and the patient was found to have a urinary tract infection and he was treated with antibiotics/cephalosporins. Since then, the patient was seen by many consultants including infectious disease, urology, and now the patient is being seen by general surgery. He was also seen by oncology. Infectious disease felt that the patient presented with sepsis secondary to urinary tract infection and his urine cultures came back positive for Pseudomonas aeruginosa. Apparently the patient went on to develop C. difficile colitis, and he developed severe diarrhea. Patient was treated with oral vancomycin, but went on to develop wors ening abdominal discomfort and diarrhea in spite of oral vancomycin, CT of the abdomen and pelvis done yesterday showed evidence of pancolitis with colonic distention up to 7.5 cm there was no evidence of free air. There was also evidence of 1 cm stone at the right UPJ junction. And the patient was felt to have possibly early obstructive uropathy. There was also another 1.4 cm nonobstructive right renal stone. Patient was seen by urology, and he underwent cystoscopy and right ureteral stent insertion. Today the patient was seen by general surgery on consultation, and became quite concerned about his colonic distention as the patient may be developing a toxic megacolon. Hence recommende d transfer to the ICU. I did evaluate the patient on the floor, he is on room air, comfortable, blood pressure is soft, patient is not in any distress but he does seem to be a bit lethargic, and profoundly weak. Hence recommended that we monitor the patient in the ICU and I transferred the patient after my evaluation. Labs today showed significant leukocytosis/leukemoid reaction with WBC count of 65.5, hemoglobin 13.7. Sodium is a bit low at 127 BUN is 52 creatinine 1.35, bicarb is 18 anion gap is normal. Lactic acid yesterday was 1.8. Patient was reevaluated today on 11/01/2023, patient remains in the ICU, he made a significant clinical improvement over the last 24 hours. Blood pressure remained stable patient denies any nausea vomiting abdominal pain, his clinical abdominal findings seem to be benign today. Patient remains on IV fluid at 100 cc/h in the form of 0.9 normal saline, he has a fecal system in place and has no evidence of bleeding, stools are loose, no GI bleeding, and no black or tarry stools. Continues to have leukocytosis/leukemoid reaction with WBC count of 6 5.9 hemoglobin 15.8 sodium is better today up to 129 bicarb remains a bit low at 16 BUN is 53 creatinine 1.04, improved compared to yesterday creatinine of 1.35. Patient did receive the fluid boluses yesterday for slightly elevated lactic acid. And clearly the patient does not need surgical intervention at this point. Lactic acid yesterday was 1.2 went down from 1.8. Flatplate of the abdomen yesterday showed nonspecific bowel gas pattern without radiographic evidence of acute process. The patient is seen today November 02, 2023 in follow-up in the intensive care unit. He is currently awake and alert in no acute distress. He is maintaining good O2 saturations in the 90s on room air. He has normal staying at 100 MLS per hour. He remains on oral vancomycin, cefepime, Flagyl, Dificid for his C. difficile colitis and urinary tract infection. He did undergo ureteral stenting on 10/30/2023. Urine culture was positive for Pseudomonas aeruginosa. Blood cultures revealing no growth. White count 53.3. Hemoglobin 13.3. Platelets 289. Sodium 129. Potassium 3.8. Bicarb 17. BUN 51. Creatinine 0.99. Glucose 116. He is afebrile. Hemodynamically stable. Progress note dated November 03, 2023. The patient is seen today in room 369. Yesterday, he was in the intensive care unit. Currently, he is on room air. He is getting saline at 50 cc an hour. They discovered Pseudomonas in his urine, and he did test positive for C. difficile. He is now on a clear liquid diet. A fecal management system is in place. The patient is still having some abdominal discomfort. Clinically, he looks much more stable. Current labs include a sodium 128, potassium 4.1, chlorides 109, CO2 14, BUN 47, and creatinine 0.90. Glucose is 142. Calcium 7.5, magnesium 2.2. The urine was positive for Pseudomonas on October 25. , The patient is on cefepime, Questran, Dificid, Flagyl, vancomycin orally, etc. Progress note dated November 04, 2023. The patient is seen today in room 369. He continues on room air. He is getting saline at 50 cc an hour. His white blood count yesterday was 38.6, which is down. His diet has been advanced. He continues on Maxipime, Dificid, oral vancomycin, and rectal vancomycin. No new laboratory data today. Objective - Vital Signs Vital signs: Vital Signs Temp 97.8 F 11/04/23 09:45 Pulse 80 11/04/23 09:45 Resp 18 11/04/23 09:45 BP 126/64 11/04/23 09:45 Pulse Ox 95 11/04/23 09:45 FiO2 Intake & Output 11/03/23 11/04/23 11/04/23 18:59 06:59 18:59 Intake Total 850 20 128 Output Total 1850 1000 Balance -1000 -980 128 Intake: IV 30 20 10 Invasive Line 4 10 Invasive Line 6 20 20 10 Oral 820 118 Output: Urine 1150 1000 Stool 700 Other: Voiding Method Indwelling Catheter Indwelling Catheter Indwelling Catheter ABP, PAP, CO, CI - Last Documented Arterial Blood Pressure 73/52 - Exam No acute distress, oriented 3. No respiratory distress. Currently on room air. HEENT examination is grossly unremarkable. Mucous membranes are moist. No oral lesions. Neck supple. Full range of motion. No adenopathy thyromegaly or neck vein distention. Cardiovascular examination reveals regular rhythm rate. S1-S2 normal. No S3 or S4. No discernible murmur noted. Heart sounds are distant. Heart rate 80 bpm. Lungs reveal clear breath sounds. Breath sounds are equal bilaterally. No adventitious lung sounds including wheezes rhonchi or crackles. Room air saturation is 95%. Abdomen soft bowel sounds are heard. No masses or tenderness. Extremities are intact. No cyanosis clubbing or edema. Skin is without rash or lesion. Neurologic examination is brief but nonfocal. - Labs CBC & Chem 7: 11/03/23 10:54 11/03/23 10:54 Labs: Abnormal Lab Results - Last 24 Hours (Table) 11/03/23 11/03/23 Range/Units 10:54 10:54 WBC 38.6 H (3.8-10.6) k/uL RBC 4.19 L (4.30-5.90) m/uL MCV 102.0 H (80.0-100.0) fL Sodium 128 L (137-145) mmol/L Chloride 109 H (98-107) mmol/L Carbon Dioxide 14 L (22-30) mmol/L BUN 47 H (9-20) mg/dL Glucose 142 H (74-99) mg/dL Calcium 7.5 L (8.4-10.2) mg/dL Assessment and Plan Assessment: Acute sepsis secondary to C. difficile colitis and pseudomonal urinary tract infection, patient has been treated with cefepime, he is now on vancomycin or ally 500 mg 4 times daily Flagyl 500 mg 3 times daily and on dificid 200 mg p.o. twice daily patient is receiving vancomycin enema. Doubt toxic megacolon at this point. Interval placement of a right ureteral stent. Hypovolemic hyponatremia secondary to diarrhea. History of congestive heart failure with preserved ejection fraction. Obstructive uropathy and hydronephrosis requiring cystoscopy and right ureteral stent insertion on 10/30/23. Morbid obesity. History of obstructive sleep apnea. Generalized weakness, multifactorial. Plan: Plan dated November 03, 2023. The patient continues on appropriate antibiotics for his Pseudomonas urinary tract infection, as well as medications for his C. difficile colitis. The patient has a fecal management system in place. The patient is complaining of diffuse abdominal discomfort from time to time. Clinically, he looks better though. Labs, x-rays, and medications are reviewed. The patient is not receiving any supplemental oxygen. He is receiving saline at 50 cc an hour. He has been allowed to resume a clear liquid diet. No additional recommendations are made. We will continue to follow. Prognosis is guarded. Plan dated November 04, 2023. The patient appears to be doing better each day. His diet is being advanced. He is not having as much in the way of abdominal issues or complaints. The patient currently is on room air. He is getting saline at 50 cc an hour. Yesterday's white blood count was down to 38.6 thousand. He continues on Maxipime, Dificid, rectal vancomycin, and oral vancomycin. We will continue to follow make recommendations along the way. Prognosis is guarded. Labs, x-rays, and all medications have been reviewed. Time with Patient: Less than 30
[2023-11-04 12:25] LABS: HCT 43.8 % (39.0-53.0); HGB 13.7 gm/dL (13.0-17.5); Hypochromasia Slight; MCH 32.2 pg (25.0-35.0); MCHC 31.2 g/dL (31.0-37.0); MCV 103.1 fL (80.0-100.0); Macrocytosis Slight; Mean Platelet Volume 8.1; Platelet Count 283 k/uL (150-450); RBC 4.25 m/uL (4.30-5.90); RDW 14.7 % (11.5-15.5); WBC 32.5 k/uL (3.8-10.6)
[2023-11-04 12:48] LABS: African American GFR (CKD) >90 (>60 ml/min/1.73 sqM); Anion Gap 0 mmol/L; Blood Urea Nitrogen 37 mg/dL (9-20); Calcium 7.5 mg/dL (8.4-10.2); Carbon Dioxide 17 mmol/L (22-30); Chloride 110 mmol/L (98-107); Glucose 172 mg/dL (74-99); Non-African American GFR(CKD) >90 (>60 ml/min/1.73 sqM); Sodium 127 mmol/L (137-145)
--- NOTE | 2023-11-04 14:01 | P.PN ---
Subjective Progress Note Date: 11/04/23 PMR Progress note Mr. Keene lives with his and anna in 1 story home with 5 ISATU. At home he is very independent, uses a can to walk. 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 He is significantly below functional level currently. 77-year-old male with medical history of hypertension, urinary retention requiring frequent straight cath, obesity class III, restless leg syndrome, chronic systolic heart failure with ejection fraction 40 to 45% presented to ED with generalized weakness that was worsening at home. Influenza A, B, RSV, COVID were negative. He was admitted for complicated urinary tract infection with a history of multidrug-resistant E. coli. Urine cx positive for pseudomonas. Patient also developed c. diff colitis for which he is on treatment. He is in the ICU 11/02/23: He is still very weak, having difficulty lifting his legs off the table. Hasn't worked with therapies recently. Some SOB "from obesity," denies CP. Abdominal pain stable. Denies other pain complaints. 11/04/23: Very tired today, feels did better yesterday. Denies SOB, CP With therapies/OT yesterday was Dependent with bed mobility and toileting. Unable to do today as too tired. Objective - Vital Signs Vital signs: Vital Signs Temp 97.8 F 11/04/23 09:45 Pulse 80 11/04/23 09:45 Resp 18 11/04/23 09:45 BP 126/64 11/04/23 09:45 Pulse Ox 95 11/04/23 09:45 FiO2 Intake & Output 11/03/23 11/04/23 11/04/23 18:59 06:59 18:59 Intake Total 850 20 128 Output Total 1850 1000 Balance -1000 -980 128 Intake: IV 30 20 10 Invasive Line 4 10 Invasive Line 6 20 20 10 Oral 820 118 Output: Urine 1150 1000 Stool 700 Other: Voiding Method Indwelling Catheter Indwelling Catheter Indwelling Catheter ABP, PAP, CO, CI - Last Documented Arterial Blood Pressure 73/52 General: Well-developed, appears weak, lying in bed Cardiovascular: Regular rate Respiratory: Even and unlabored respirations on NC Skin: Skin intact where visible to head, neck, and bilateral upper and lower extremities Neurological: Alert and oriented x 3 Speech is clear, fluent. Psychiatric: Calm and cooperative - Labs CBC & Chem 7: 11/04/23 11:58 11/04/23 11:58 Labs: Abnormal Lab Results - Last 24 Hours (Table) 11/04/23 11/04/23 Range/Units 11:58 11:58 WBC 32.5 H (3.8-10.6) k/uL RBC 4.25 L (4.30-5.90) m/uL MCV 103.1 H (80.0-100.0) fL Sodium 127 L (137-145) mmol/L Chloride 110 H (98-107) mmol/L Carbon Dioxide 17 L (22-30) mmol/L BUN 37 H (9-20) mg/dL Glucose 172 H (74-99) mg/dL Calcium 7.5 L (8.4-10.2) mg/dL Assessment and Plan Assessment: # Generalized weakness secondary to complicated UTI as well as C.Diff infection -has roy and flexicile -continue PT/OT for mobilization, last worked with him 10/28/23 -with OT 11/02, was Dependent with bed mobility, toilet transfers; unable to work with therapies today as too tired # Acute sepsis secondary to Cdiff adn pseudomonal UTI. #Complicated UTI with pseudomonus -continue abx per ID #C difficile colitis -continue abx per ID # Hx of Urinary retention requiring straight cath # Obstructive uropathy and hyrdonephrosis requiring cystoscopy and right ureteral stent 10/30/23. -maintain roy catheter #History of systolic heart failure with an ejection fraction of 40 to 45%, septal hypokinesis, and severe left concentric hypertrophy -Continue lasix 40mg IV daily per primary, cardiology following #Obesity Class III #Hypertension #Pain mgmt. -acetaminophen 650 mg q6h prn #Low vit D -continue supplementation Recommendations: - per your medical management - continue PT/OT - At this time is most appropriate for JESIKA when medically stable; unable to tolerate intensive IPR and too low functioning.
--- NOTE | 2023-11-04 14:18 | P.PN ---
Subjective Progress Note Date: 11/04/23 Hospital course: Patient is a pleasant 77-year-old male with a past medical history of congestive systolic heart failure with previously known EF of 40 to 45%, hypertension, GERD, obstructive sleep apnea, BPH requiring frequent straight catheterizations and at times Garcia catheter, chronic back pain with bilateral lower extremity neuropathies and restless legs, macular degeneration, and bilateral cataract removal with lens implants. He presented to the emergency department on 10/26/2023 with a chief complaint of generalized weakness. Upon arrival to our facility patient underwent evaluation. Vital signs in the emergency department show blood pressure 143/74, heart rate 86, respiratory rate 18, temp 99.6, and SpO2 of 95% on room air, shortly after arrival temp elevated as high as 101.3 F. EKG completed showing sinus mechanism at 86 bpm. Chest x-ray completed showing mild cardiomegaly with overall hazy densities related to overlying soft tissue/body habitus. Labs completed and reviewed. CBC showing leukocytosis with WBC count of 14.4 and macrocytosis with MCV of 100.2. BMP showing hyponatremia with sodium of 134 otherwise normal findings. Lactic acid was 1.3. Magnesium 1.8. Liver profile unremarkable. Urinalysis contaminated specimen but appears positive for infection, urine kappa light 6.17 and urine free lambda light 0.68. Free kappa LC quant was 2.06. Influenza A, influenza B, RSV, and COVID were negative. Patient was started on IV antibiotics with Rocephin admitted under our services for acute cystitis and generalized weakness. Echocardiogram was completed showing preserved EF of 55% and mildly increased left ventricular wall thickness. Urine culture positive for Pseudomonas aeruginosa. Blood culture showing no growth to date. C. difficile positive. Started on oral vancomycin in addition to his cefepime for treatment of Pseudomonas UTI. Patient's condition worsened and WBC count significantly increasing concerning for fulminant C. difficile. Patient was started on IV Flagyl in addition to oral vancomycin and a CT abdomen and pelvis was completed. CT abdomen and pelvis revealed severe pancolitis with colonic distention up to 7.5 cm with no pneumatosis or free air noted at this time. Consult was placed to general surgery infectious disease. Patient was started on vancomycin enemas and fidaxomicin in addition to oral vancomycin and IV Flagyl. He was evaluated by general surgery team who stated that taking patient to the OR could result in significant morbidity and/or mortality and recommending continuation of appropriate antibiotics and resuscitation measures at this time. 10/31/2023 patient was transferred to the ICU and an arterial line was placed for close monitoring of hemodynamic status. Patient's condition improving and he was transferred back to stepdown unit on 11/02/2023. Physical exam: Patient seen and fully evaluated at bedside this morning. Patient reports diarrhea seems to have slowed down and reports only intermittent abdominal pain/cramping. He reports overall just feeling very tired and weak. Patient reports that he is not getting much sleep at night. Offered to put patient on medication on a as needed basis for sleep, but patient currently declining. Vital signs reviewed and stable. General: Nontoxic, no distress and appears stated age. Obese. Derm: Skin warm and dry, normal coloration for ethnicity. Head: Atraumatic, normocephalic and symmetric. Eyes: EOMs intact, no lid lag, and anicteric sclera Mouth: no lip lesions, mucus membranes moist Cardiovascular: regular rate and rhythm with normal S1S2, no murmur, positive posterior tibial pulses bilaterally, and cap refill < 2 seconds. Lungs: Respirations even, regular, and unlabored on room air. Lungs diminished, no rhonchi, no rales, no wheezing, and no accessory muscle usage. Abdominal: Obese abdomen soft, nontender to palpation, no guarding, no appreciable organomegaly. Garcia catheter in place. Fecal Management system in place. Ext: ROM intact. No gross muscle atrophy, no edema, no contractures Neuro: Speech clear, face symmetrical and CN II-XII grossly intact with no noted focal neuro deficits Psych: Alert and oriented to person, place, time, and situation. Appropriate and pleasant affect. Assessment and Plan of Care: Fulminant C. difficile Infection Pseudomonas aeruginosa UTI, associated with chronic Garcia catheter use Acute kidney injury Sepsis upon arrival, secondary to above Severe leukocytosis Hyponatremia, secondary to fluid volume depletion resulting from persistent diarrhea Generalized weakness, likely secondary to above -Urine culture positive for Pseudomonas aeruginosa. Per culture and sensitivity report, patient to continue cefepime 2 g every 12 hours. -C. difficile was positive. Patient to continue oral vancomycin 500 mg every 6 hours, vancomycin enemas every 6 hours, Fidaxomicin 200 mg twice daily, and Flagyl 500 mg every 8 hours IVPB. -Infectious disease following, reviewed documentation in chart -Continue to hold Aldactone secondary to need for IV fluid hydration. -Continue to hold losartan held secondary to hypotension and acute kidney injury -Continue Garcia catheter management and fecal management system with strict I's and O's. -Blood cultures negative -Patient hyponatremic with sodium of 127, continue gentle IV fluid hydration with 0.9% normal saline at 50 cc/h -Continue cholestyramine 4 g twice daily. -Continue doxazosin 8 mg nightly for BPH with chronic urinary output obstruction. -PT/OT following secondary to generalized weakness recommending inpatient rehab Chronic systolic heart failure with previously known EF of 40 to 45% now improved to 55% Hypertension, history of hypertension now with hypotension -Repeat echocardiogram was completed and report reviewed now showing preserved EF of 55% and mildly increased left ventricular wall thickness. -Aldactone and losartan held at this time secondary to need for IV fluid hydration and hypotension. -Continue aspirin 325 mg daily. -Close monitoring of vital signs every 4 hours. Elevated light chains Low QRS voltage on EKG Urine kappa light 6.17 and urine free lambda light 0.68. Free kappa LC quant was 2.06. Hematology evaluated, recommend follow-up in their clinic in 3 months to repeat paraproteinemia labs Obstructive sleep apnea Continue CPAP nightly and while napping. Morbid obesity, class III with BMI 52.8 kg/m -Recommend outpatient structured weight management program. Hypokalemia. Resolved. Data and imaging reviewed: Morning labs reviewed. CBC showing improvement of WBC count down to 32.5 this morning. BMP showing continued hyponatremia with sodium of 127, chloride of 110, bicarb of 17, and prerenal azotemia with BUN of 37. Blood glucose was 172. Vital signs reviewed. Blood pressure 126/64, heart rate 80, respiratory rate 16, temp 97.8 F, and SpO2 of 95% on room air. Prognosis remains guarded at this time CODE STATUS: Full code DVT prophylaxis: Heparin Anticipated discharge date: Clinical course to determine Anticipated discharge place: Clinical course to determine, likely inpatient rehab Patient was seen independently by Nurse Pracitioner. This document was prepared using [employer] dictation software. Please allow for errors in motor teacher, while rare they do occur. Devante Oleary NP rendered care for this patient independently, reviewed the findings and plan as documented in the note above. I did not physically speak with or examine the patient on this date. Objective - Vital Signs Vital signs: Vital Signs Temp 98.2 F 11/04/23 04:00 Pulse 80 11/04/23 04:00 Resp 18 11/04/23 04:00 BP 124/68 11/04/23 04:00 Pulse Ox 97 11/04/23 04:00 FiO2 Intake & Output 11/03/23 11/04/23 11/04/23 18:59 06:59 18:59 Intake Total 850 20 Output Total 1850 Balance -1000 20 Intake: IV 30 20 Invasive Line 4 10 Invasive Line 6 20 20 Oral 820 Output: Urine 1150 Stool 700 Other: Voiding Method Indwelling Catheter Indwelling Catheter ABP, PAP, CO, CI - Last Documented Arterial Blood Pressure 73/52 - Labs CBC & Chem 7: 11/04/23 11:58 11/04/23 11:58 Labs: Abnormal Lab Results - Last 24 Hours (Table) 11/03/23 11/03/23 Range/Units 10:54 10:54 WBC 38.6 H (3.8-10.6) k/uL RBC 4.19 L (4.30-5.90) m/uL MCV 102.0 H (80.0-100.0) fL Sodium 128 L (137-145) mmol/L Chloride 109 H (98-107) mmol/L Carbon Dioxide 14 L (22-30) mmol/L BUN 47 H (9-20) mg/dL Glucose 142 H (74-99) mg/dL Calcium 7.5 L (8.4-10.2) mg/dL Microbiology - Last 24 Hours (Table) 10/30/23 19:44 Blood Culture - Preliminary Blood
--- NOTE | 2023-11-04 15:15 | P.PN ---
Subjective Progress Note Date: 11/04/23 CHIEF COMPLAINT: C. difficile colitis HISTORY OF PRESENT ILLNESS: Patient is currently on the cardiac floor. No new complaints. Tolerating the full liquids. Still has FMS for his diarrhea. He denies any abdominal pain. Afebrile. WBC is down from 38-32.5 PHYSICAL EXAM: VITAL SIGNS: Reviewed. GENERAL: no acute distress. ABDOMEN: Soft. Obese. Nondistended. Nontender NEUROLOGIC: Alert and oriented. Cranial nerves II through XII grossly intact. ASSESSMENT: 1. Severe C. difficile colitis PLAN: -Continue full liquids -Continue to monitor -Continue C. difficile treatment Physician Therapist Physical note has been reviewed by physician. Signing provider agrees with the documented findings, assessment, and plan of care. Objective - Vital Signs Vital signs: Vital Signs Temp 97.8 F 11/04/23 13:00 Pulse 81 11/04/23 13:00 Resp 16 11/04/23 13:00 BP 127/68 11/04/23 13:00 Pulse Ox 96 11/04/23 13:00 FiO2 Intake & Output 11/03/23 11/04/23 11/04/23 18:59 06:59 18:59 Intake Total 850 20 128 Output Total 1850 1000 Balance -1000 -980 128 Intake: IV 30 20 10 Invasive Line 4 10 Invasive Line 6 20 20 10 Oral 820 118 Output: Urine 1150 1000 Stool 700 Other: Voiding Method Indwelling Catheter Indwelling Catheter Indwelling Catheter ABP, PAP, CO, CI - Last Documented Arterial Blood Pressure 73/52 - Labs CBC & Chem 7: 11/04/23 11:58 11/04/23 11:58 Labs: Abnormal Lab Results - Last 24 Hours (Table) 11/04/23 11/04/23 Range/Units 11:58 11:58 WBC 32.5 H (3.8-10.6) k/uL RBC 4.25 L (4.30-5.90) m/uL MCV 103.1 H (80.0-100.0) fL Sodium 127 L (137-145) mmol/L Chloride 110 H (98-107) mmol/L Carbon Dioxide 17 L (22-30) mmol/L BUN 37 H (9-20) mg/dL Glucose 172 H (74-99) mg/dL Calcium 7.5 L (8.4-10.2) mg/dL
[2023-11-05 09:18] VITALS: BMI 59.7
[2023-11-05 10:18] LABS: HCT 44.7 % (39.6-50.0); HGB 14.5 g/dL (13.0-17.0); MCH 32.3 pg (27.0-32.0); MCHC 32.4 g/dL (32.0-37.0); MCV 99.6 FL (80.0-97.0); Mean Platelet Volume 9.6 FL (9.5-12.2); NRBC Per 100 WBC 0.05 X 10*3/uL (0.00-0.01); Platelet Count 318 X 10*3/uL (140-440); RBC 4.49 X 10*6/uL (4.40-5.60); RDW 15.5 % (11.5-14.5); WBC 30.96 X 10*3/uL (4.50-10.00)
[2023-11-05 10:26] LABS: ALT 16 U/L (10-49); AST 32 U/L (14-35); Albumin 2.5 g/dL (3.8-4.9); Albumin/Globulin Ratio 1.56 Ratio (1.60-3.17); Alkaline Phosphatase 75 U/L (41-126); BUN/Creat Ratio 38.62 Ratio (12.00-20.00); Blood Urea Nitrogen 30.9 mg/dL (9.0-27.0); Calcium 7.8 mg/dL (8.7-10.3); Carbon Dioxide 15.2 mmol/L (21.6-31.8); Chloride 106 mmol/L (96-109); Globulin 1.6 g/dL (1.6-3.3); Glucose 136 mg/dL (70-110); Magnesium 2.2 mg/dL (1.5-2.4); Potassium 4.5 mmol/L (3.5-5.5); Sodium 131 mmol/L (135-145); Total Bilirubin 0.2 mg/dL (0.3-1.2); Total Protein 4.1 g/dL (6.2-8.2)
--- NOTE | 2023-11-05 11:23 | P.PN ---
Subjective Progress Note Date: 11/05/23 This is a 77-year-old white male with history of hypertension, obesity, chronic urinary retention, chronic systolic congestive heart failure with ejection fraction of 40 to 45%, patient was admitted to the hospital on 10/26/2023, his chief complaint was mostly a complaint of generalized weakness. Patient has been noticing more difficulty ambulating due to profound weakness in his lower extremities over quite some time. Patient got to the point where he could not help himself with transfers. Brought into the ER, and the patient was found to have a urinary tract infection and he was treated with anti biotics/cephalosporins. Since then, the patient was seen by many consultants including infectious disease, urology, and now the patient is being seen by general surgery. He was also seen by oncology. Infectious disease felt that the patient presented with sepsis secondary to urinary tract infection and his urine cultures came back positive for Pseudomonas aeruginosa. Apparently the patient went on to develop C. difficile colitis, and he developed severe diarrhea. Patient was treated with oral vancomycin, but went on to develop worsening abdominal discomfort and diarrhea in spite of oral vancomycin, CT of the abdomen and pelvis done yesterday showed evidence of pancolitis with colonic distention up to 7.5 cm there was no evidence of free air. There was also evidence of 1 cm stone at the right UPJ junction. And the patient was felt to have possibly early obstructive uropathy. There was also another 1.4 cm nonobstructive right renal stone. Patient was seen by urology, and he underwent cystoscopy and right ureteral stent insertion. Today the patient was seen by general surgery on consultation, and became quite concerned about his colonic distention as the patient may be developing a toxic megacolon. Hence recommended transfer to the ICU. I did evaluate the patient on the floor, he is on room air, comfortable, blood pressure is soft, patient is not in any distress but he does seem to be a bit lethargic, and profoundly weak. Hence recommended that we monitor the patient in the ICU and I transferred the patient after my evaluation. Labs today showed significant leukocytosis/leukemoid reaction with WBC count of 65.5, hemoglobin 13.7. Sodium is a bit low at 127 BUN is 52 creatinine 1.35, bicarb is 18 anion gap is normal. Lactic acid yesterday was 1.8. Patient was reevaluated today on 11/01/2023, patient remains in the ICU, he made a significant clinical improvement over the last 24 hours. Blood pressure remained stable patient denies any nausea vomiting abdominal pain, his clinical abdominal findings seem to be benign today. Patient remains on IV fluid at 100 cc/h in the form of 0.9 normal saline, he has a fecal system in place and has no evidence of bleeding, stools are loose, no GI bleeding, and no black or tarry stools. Continues to have leukocytosis/leukemoid reaction with WBC count of 65.9 hemoglobin 15.8 sodium is better today up to 129 bicarb remains a bit low at 16 BUN is 53 creatinine 1.04, improved compared to yesterday creatinine of 1. 35. Patient did receive the fluid boluses yesterday for slightly elevated lactic acid. And clearly the patient does not need surgical intervention at this point. Lactic acid yesterday was 1.2 went down from 1.8. Flatplate of the abdomen yesterday showed nonspecific bowel gas pattern without radiographic evidence of acute process. The patient is seen today November 02, 2023 in follow-up in the intensive care unit. He is currently awake and alert in no acute distress. He is maintaining good O2 saturations in the 90s on room air. He has normal staying at 100 MLS per hour. He remains on oral vancomycin, cefepime, Flagyl, Dificid for his C. difficile colitis and urinary tract infection. He did undergo ureteral stenting on 10/30/2023. Urine culture was positive for Pseudomonas aeruginosa. Blood cultures revealing no growth. White count 53.3. Hemoglobin 13.3. Platelets 289. Sodium 129. Potassium 3.8. Bicarb 17. BUN 51. Creatinine 0.99. Glucose 116. He is afebrile. Hemodynamically stable. The patient is seen today November 05, 2023 in follow-up on the regular medical floor. Is awake and alert in no acute distress. Resting in bed. He denies any worsening shortness of breath, cough or congestion. Maintaining O2 saturations in the 90s on room air. He is afebrile. Hemodynamically stable. Urine culture was positive for Pseudomonas aeruginosa. Blood cultures revealed no growth. White count 38.9. Hemoglobin 14.5. Platelets 318. Sodium 131. Potassium 4.5. Bicarb 15. BUN 31. Creatinine 0.8. Glucose 136. He is continued on cefepime, Flagyl, Zosyn and Dificid. Heparin for DVT prophylaxis. Objective - Vital Signs Vital signs: Vital Signs Temp 98.3 F 11/05/23 01:45 Pulse 83 11/05/23 07:54 Resp 20 11/05/23 08:00 BP 126/77 11/05/23 07:54 Pulse Ox 93 L 11/05/23 07:54 FiO2 Intake & Output 11/04/23 11/05/23 11/05/23 18:59 06:59 18:59 Intake Total 718 Output Total 550 1350 Balance 168 -1350 Weight 152.861 kg Intake: IV 210 Cefepime 2 gm In Sodium 100 Chloride 0.9% 100 ml @ 25 mls/hr IVPB Q12HR [facility] Rx #:[id number] Invasive Line 6 10 metroNIDAZOLE-NS PMX 500 100 mg In Saline 1 100ml.bag @ 100 mls/hr IVPB Q8H [facility] Rx#:[id number] Intake, IV Titration 150 Amount Sodium Chloride 0.9% 1, 150 000 ml @ 50 mls/hr IV . Q20H [facility] Rx#:[id number] Oral 358 Output: Urine 550 650 Uretheral (Garcia) 650 Stool 700 Other: Voiding Method Indwelling Catheter Indwelling Catheter Indwelling Catheter ABP, PAP, CO, CI - Last Documented Arterial Blood Pressure 73/52 - Exam GENERAL EXAM: Alert, 77-year-old male, on room air, comfortable in no apparent distress. HEAD: Normocephalic. EYES: Normal reaction of pupils, equal size. NOSE: Clear with pink turbinates. THROAT: No erythema or exudates. NECK: No masses, no JVD. CHEST: No chest wall deformity. LUNGS: Equal air entry with no crackles, wheeze, rhonchi or dullness. CVS: S1 and S2 normal with no audible murmur, regular rhythm. ABDOMEN: No hepatosplenomegaly, normal bowel sounds, no guarding or rigidity. SPINE: No scoliosis or deformity SKIN: No rashes CENTRAL NERVOUS SYSTEM: No focal deficits, tone is normal in all 4 extremities. EXTREMITIES: There is no peripheral edema. No clubbing, no cyanosis. Peripheral pulses are intact. - Labs CBC & Chem 7: 11/05/23 06:32 11/05/23 06:32 Labs: Abnormal Lab Results - Last 24 Hours (Table) 11/04/23 11/04/23 11/05/23 Range/Units 11:58 11:58 06:32 WBC 32.5 H 30.96 H (3.8-10.6) k/uL RBC 4.25 L (4.30-5.90) m/uL MCV 103.1 H 99.6 H (80.0-100.0) fL MCH 32.3 H (27.0-32.0) pg RDW 15.5 H (11.5-14.5) % NRBC/100 WBC Diff 0.05 H (0.00-0.01) X 10*3/uL Sodium 127 L (137-145) mmol/L Chloride 110 H (98-107) mmol/L Carbon Dioxide 17 L (22-30) mmol/L BUN 37 H (9-20) mg/dL BUN/Creatinine Ratio (12.00-20.00) Ratio Glucose 172 H (74-99) mg/dL Calcium 7.5 L (8.4-10.2) mg/dL Total Bilirubin (0.3-1.2) mg/dL Total Protein (6.2-8.2) g/dL Albumin (3.8-4.9) g/dL Albumin/Globulin Ratio (1.60-3.17) Ratio 11/05/23 Range/Units 06:32 WBC (3.8-10.6) k/uL RBC (4.30-5.90) m/uL MCV (80.0-100.0) fL MCH (27.0-32.0) pg RDW (11.5-14.5) % NRBC/100 WBC Diff (0.00-0.01) X 10*3/uL Sodium 131 L (137-145) mmol/L Chloride (98-107) mmol/L Carbon Dioxide 15.2 L (22-30) mmol/L BUN 30.9 H (9-20) mg/dL BUN/Creatinine Ratio 38.62 H (12.00-20.00) Ratio Glucose 136 H (74-99) mg/dL Calcium 7.8 L (8.4-10.2) mg/dL Total Bilirubin 0.2 L (0.3-1.2) mg/dL Total Protein 4.1 L (6.2-8.2) g/dL Albumin 2.5 L (3.8-4.9) g/dL Albumin/Globulin Ratio 1.56 L (1.60-3.17) Ratio Microbiology - Last 24 Hours (Table) 10/30/23 19:44 Blood Culture - Final Blood Assessment and Plan Assessment: Acute sepsis secondary to C. difficile colitis and pseudomonal urinary tract infection, patient has been treated with cefepime, he is now on vancomycin orally 500 mg 4 times daily Flagyl 500 mg 3 times daily and on dificid 200 mg p.o. twice daily patient is receiving vancomycin enema Doubt toxic megacolon at this point. CT scan of the abdomen reveals ongoing pancolitis. Severe wall thickening along the right side of the colon present previously. Worsening generalized anasarca change now with trace pleural effusions and mild ascites. Interval placement of a right ureteral stent Hypovolemic hyponatremia secondary to diarrhea. Improved with hydration and fluid boluses History of congestive heart failure with preserved ejection fraction, continue to hold diuretics Obstructive uropathy and hydronephrosis requiring cystoscopy and right ureteral stent insertion on 10/30/23 Morbid obesity History of obstructive sleep apnea Generalized weakness, multifactorial. Plan: The patient was seen and evaluated Labs and medications reviewed Antibiotics per ID service Stable and on room air Being evaluated for possible inpatient rehabilitation We will continue to follow I have personally seen and examined the patient, performed the documentation and the assessment and plan as written. Number of minutes spent on the visit: 10.
--- NOTE | 2023-11-05 14:35 | P.PN ---
Subjective Progress Note Date: 11/05/23 CHIEF COMPLAINT: C. difficile colitis HISTORY OF PRESENT ILLNESS: Patient is currently on regular medical floor. Denies any abdominal pain. Still has FMS in place for diarrhea. Denies any nausea or vomiting. Tolerating full fluids. Afebrile. WBC 32 down to 30 PHYSICAL EXAM: VITAL SIGNS: Reviewed. GENERAL: no acute distress. ABDOMEN: Soft. Obese. Nondistended. Nontender NEUROLOGIC: Alert and oriented. Cranial nerves II through XII grossly intact. ASSESSMENT: 1. Severe C. difficile colitis PLAN: -Advance diet to regular -Continue to monitor -Continue C. difficile treatment Physician Behavioral Health Rn note has been reviewed by physician. Signing provider agrees with the documented findings, assessment, and plan of care. Objective - Vital Signs Vital signs: Vital Signs Temp 98.3 F 11/05/23 01:45 Pulse 83 11/05/23 07:54 Resp 20 11/05/23 08:00 BP 126/77 11/05/23 07:54 Pulse Ox 93 L 11/05/23 07:54 FiO2 Intake & Output 11/04/23 11/05/23 11/05/23 18:59 06:59 18:59 Intake Total 718 Output Total 550 1350 Balance 168 -1350 Weight 152.861 kg Intake: IV 210 Cefepime 2 gm In Sodium 100 Chloride 0.9% 100 ml @ 25 mls/hr IVPB Q12HR [facility] Rx #:[id number] Invasive Line 6 10 metroNIDAZOLE-NS PMX 500 100 mg In Saline 1 100ml.bag @ 100 mls/hr IVPB Q8H [facility] Rx#:[id number] Intake, IV Titration 150 Amount Sodium Chloride 0.9% 1, 150 000 ml @ 50 mls/hr IV . Q20H [facility] Rx#:[id number] Oral 358 Output: Urine 550 650 Uretheral (Garcia) 650 Stool 700 Other: Voiding Method Indwelling Catheter Indwelling Catheter Indwelling Catheter ABP, PAP, CO, CI - Last Documented Arterial Blood Pressure 73/52 - Labs CBC & Chem 7: 11/05/23 06:32 11/05/23 06:32 Labs: Abnormal Lab Results - Last 24 Hours (Table) 11/04/23 11/04/23 11/05/23 Range/Units 11:58 11:58 06:32 WBC 32.5 H 30.96 H (3.8-10.6) k/uL RBC 4.25 L (4.30-5.90) m/uL MCV 103.1 H 99.6 H (80.0-100.0) fL MCH 32.3 H (27.0-32.0) pg RDW 15.5 H (11.5-14.5) % NRBC/100 WBC Diff 0.05 H (0.00-0.01) X 10*3/uL Sodium 127 L (137-145) mmol/L Chloride 110 H (98-107) mmol/L Carbon Dioxide 17 L (22-30) mmol/L BUN 37 H (9-20) mg/dL BUN/Creatinine Ratio (12.00-20.00) Ratio Glucose 172 H (74-99) mg/dL Calcium 7.5 L (8.4-10.2) mg/dL Total Bilirubin (0.3-1.2) mg/dL Total Protein (6.2-8.2) g/dL Albumin (3.8-4.9) g/dL Albumin/Globulin Ratio (1.60-3.17) Ratio 05/16/24 Range/Units 06:32 WBC (3.8-10.6) k/uL RBC (4.30-5.90) m/uL MCV (80.0-100.0) fL MCH (27.0-32.0) pg RDW (11.5-14.5) % NRBC/100 WBC Diff (0.00-0.01) X 10*3/uL Sodium 131 L (137-145) mmol/L Chloride (98-107) mmol/L Carbon Dioxide 15.2 L (22-30) mmol/L BUN 30.9 H (9-20) mg/dL BUN/Creatinine Ratio 38.62 H (12.00-20.00) Ratio Glucose 136 H (74-99) mg/dL Calcium 7.8 L (8.4-10.2) mg/dL Total Bilirubin 0.2 L (0.3-1.2) mg/dL Total Protein 4.1 L (6.2-8.2) g/dL Albumin 2.5 L (3.8-4.9) g/dL Albumin/Globulin Ratio 1.56 L (1.60-3.17) Ratio Microbiology - Last 24 Hours (Table) 10/30/23 19:44 Blood Culture - Final Blood
--- NOTE | 2023-11-05 15:12 | P.PN ---
Subjective Progress Note Date: 11/05/23 Principal diagnosis: Reason for follow-up is C. difficile colitis UTI and leukocytosis Patient is a 77-year-old male with a past medical history significant for hypertension osteoarthritis sleep apnea reflux patient did have a BPH and self catheterize himself because of urine retention, presented to hospital after a fall with weakness he did have a positive UA and has been treated for a UTI also has significant diarrhea stool for C. difficile came back positive pro mpting this consultation. On today's evaluation that is 11/05/2023, the patient continues to be afebrile, the patient is on room air and breathing comfortably, the Pt denies having any chest pain or cough, the patient denies having any abdominal pain no vomiting still having diarrhea for the patient have fecal management system however no worsening output reported by the nursing staff. Patient white count is down to 30,000, creatinine 0.8 blood culture negative Objective - Vital Signs Vital signs: Vital Signs Temp 98.3 F 11/05/23 01:45 Pulse 83 11/05/23 07:54 Resp 20 11/05/23 08:00 BP 126/77 11/05/23 07:54 Pulse Ox 93 L 11/05/23 07:54 FiO2 Intake & Output 11/04/23 11/05/23 11/05/23 18:59 06:59 18:59 Intake Total 718 Output Total 550 1350 Balance 168 -1350 Weight 152.861 kg Intake: IV 210 Cefepime 2 gm In Sodium 100 Chloride 0.9% 100 ml @ 25 mls/hr IVPB Q12HR [facility] Rx #:[id number] Invasive Line 6 10 metroNIDAZOLE-NS PMX 500 100 mg In Saline 1 100ml.bag @ 100 mls/hr IVPB Q8H [facility] Rx#:[id number] Intake, IV Titration 150 Amount Sodium Chloride 0.9% 1, 150 000 ml @ 50 mls/hr IV . Q20H [facility] Rx#:[id number] Oral 358 Output: Urine 550 650 Uretheral (Garcia) 650 Stool 700 Other: Voiding Method Indwelling Catheter Indwelling Catheter Indwelling Catheter ABP, PAP, CO, CI - Last Documented Arterial Blood Pressure 73/52 - Exam GENERAL DESCRIPTION: An elderly male lying in bed in no distress RESPIRATORY SYSTEM: Unlabored breathing , decreased breath sounds at bases HEART: S1 S2 regular rate and rhythm , ABDOMEN: Soft , mild distention and tenderness EXTREMITIES: No edema feet - Labs CBC & Chem 7: 11/05/23 06:32 11/05/23 06:32 Labs: Abnormal Lab Results - Last 24 Hours (Table) 11/04/23 11/04/23 11/05/23 Range/Units 11:58 11:58 06:32 WBC 32.5 H 30.96 H (3.8-10.6) k/uL RBC 4.25 L (4.30-5.90) m/uL MCV 103.1 H 99.6 H (80.0-100.0) fL MCH 32.3 H (27.0-32.0) pg RDW 15.5 H (11.5-14.5) % NRBC/100 WBC Diff 0.05 H (0.00-0.01) X 10*3/uL Sodium 127 L (137-145) mmol/L Chloride 110 H (98-107) mmol/L Carbon Dioxide 17 L (22-30) mmol/L BUN 37 H (9-20) mg/dL BUN/Creatinine Ratio (12.00-20.00) Ratio Glucose 172 H (74-99) mg/dL Calcium 7.5 L (8.4-10.2) mg/dL Total Bilirubin (0.3-1.2) mg/dL Total Protein (6.2-8.2) g/dL Albumin (3.8-4.9) g/dL Albumin/Globulin Ratio (1.60-3.17) Ratio 11/05/23 Range/Units 06:32 WBC (3.8-10.6) k/uL RBC (4.30-5.90) m/uL MCV (80.0-100.0) fL MCH (27.0-32.0) pg RDW (11.5-14.5) % NRBC/100 WBC Diff (0.00-0.01) X 10*3/uL Sodium 131 L (137-145) mmol/L Chloride (98-107) mmol/L Carbon Dioxide 15.2 L (22-30) mmol/L BUN 30.9 H (9-20) mg/dL BUN/Creatinine Ratio 38.62 H (12.00-20.00) Ratio Glucose 136 H (74-99) mg/dL Calcium 7.8 L (8.4-10.2) mg/dL Total Bilirubin 0.2 L (0.3-1.2) mg/dL Total Protein 4.1 L (6.2-8.2) g/dL Albumin 2.5 L (3.8-4.9) g/dL Albumin/Globulin Ratio 1.56 L (1.60-3.17) Ratio Microbiology - Last 24 Hours (Table) 10/30/23 19:44 Blood Culture - Final Blood Assessment and Plan (1) C. difficile colitis Current Visit: Yes Status: Acute Priority: Medium Code(s): A04.72 - ENTEROCOLITIS D/T CLOSTRIDIUM DIFFICILE, NOT SPCF RECUR SNOMED Code(s): 004107573 (2) Leukocytosis Current Visit: Yes Status: Acute Priority: Medium Code(s): D72.829 - EUSEBIO VATED WHITE BLOOD CELL COUNT, UNSPECIFIED SNOMED Code(s): 866198987 (3) Urinary tract infection Current Visit: Yes Status: Acute Priority: Medium Code(s): N39.0 - URINARY TRACT INFECTION, SITE NOT SPECIFIED SNOMED Code(s): 04840218 Plan: 1patient with a complicated history and this patient initially presented to the hospital with sepsis as the patient did have a fever elevated white count source likely UTI with urine culture finalized with Pseudomonas aeruginosa, patient did have a CT abdominal pelvis CT shows evidence of hydronephrosis and ureteral stone in this patient who is status post cystoscopy and ureteral stent placement patient is currently covered with the cefepime concerning for pyelonephritis/complicated UTI which will be continued for short course 2patient did have severe C. difficile colitis patient is slowly clinical improvement patient white count down to 32,000 continue with the vancomycin Flagyl and monitor clinical course closely Dictation was produced using [employer] dictation software. please excuse any grammatical, word or spelling errors. Time with Patient: Less than 30
--- NOTE | 2023-11-05 15:12 | P.PN ---
Subjective Progress Note Date: 11/04/23 Principal diagnosis: Reason for follow-up is C. difficile colitis UTI and leukocytosis Patient is a 77-year-old male with a past medical history significant for hypertension osteoarthritis sleep apnea reflux patient did have a BPH and self catheterize himself because of urine retention, presented to hospital after a fall with weakness he did have a positive UA and has been treated for a UTI also has significant diarrhea stool for C. difficile came back positive pro mpting this consultation. On today's evaluation that is 11/04/2023,the patient remains to be afebrile, patient is on room air not requiring supplemental oxygen and denies any shortness of breath no chest pain or cough.Patient denies having any nausea or vomiting, abdominal pain has decreased intensity still have the fecal management system for diarrhea no worsening output reported. The patient white count is down to 2.5, creatinine 0.71 Objective - Vital Signs Vital signs: Vital Signs Temp 97.8 F 11/04/23 09:45 Pulse 80 11/04/23 09:45 Resp 18 11/04/23 09:45 BP 126/64 11/04/23 09:45 Pulse Ox 95 11/04/23 09:45 FiO2 Intake & Output 11/03/23 11/04/23 11/04/23 18:59 06:59 18:59 Intake Total 850 20 128 Output Total 1850 1000 Balance -1000 -980 128 Intake: IV 30 20 10 Invasive Line 4 10 Invasive Line 6 20 20 10 Oral 820 118 Output: Urine 1150 1000 Stool 700 Other: Voiding Method Indwelling Catheter Indwelling Catheter Indwelling Catheter ABP, PAP, CO, CI - Last Documented Arterial Blood Pressure 73/52 - Exam GENERAL DESCRIPTION: An elderly male lying in bed in no distress RESPIRATORY SYSTEM: Unlabored breathing , decreased breath sounds at bases HEART: S1 S2 regular rate and rhythm , ABDOMEN: Soft , mild distention and tenderness EXTREMITIES: No edema feet - Labs CBC & Chem 7: 11/05/23 06:32 11/05/23 06:32 Labs: Abnormal Lab Results - Last 24 Hours (Table) 11/03/23 11/03/23 Range/Units 10:54 10:54 WBC 38.6 H (3.8-10.6) k/uL RBC 4.19 L (4.30-5.90) m/uL MCV 102.0 H (80.0-100.0) fL Sodium 128 L (137-145) mmol/L Chloride 109 H (98-107) mmol/L Carbon Dioxide 14 L (22-30) mmol/L BUN 47 H (9-20) mg/dL Glucose 142 H (74-99) mg/dL Calcium 7.5 L (8.4-10.2) mg/dL Assessment and Plan (1) C. difficile colitis Current Visit: Yes Status: Acute Priority: Medium Code(s): A04.72 - ENTEROCOLITIS D/T CLOSTRIDIUM DIFFICILE, NOT SPCF RECUR SNOMED Code(s): 701154280 (2) Leukocytosis Current Visit: Yes Status: Acute Priority: Medium Code(s): D72.829 - ELEVATED WHITE BLOOD CELL COUNT, UNSPECIFIED SNOMED Code(s): 959013538 (3) Urinary tract infection Current Visit: Yes Status: Acute Priority: Medium Code(s): N39.0 - URINARY TRACT INFECTION, SITE NOT SPECIFIED SNOMED Code(s): 84359410 Plan: 1patient with a complicated history and this patient initially presented to the hospital with sepsis as the patient did have a fever elevated white count source likely UTI with urine culture finalized with Pseudomonas aeruginosa, patient did have a CT abdominal pelvis CT shows evidence of hydronephrosis and ureteral stone in this patient who is status post cystoscopy and ureteral stent placement patient is currently covered with the cefepime concerning for pyelonephritis/complicated UTI which will be continued for short course 2patient did have severe C. difficile colitis with significant elevated white count which is slowly trending down, patient to continue with the vancomycin and Flagyl and monitor clinical course closely Dictation was produced using [employer] dictation software. please excuse any grammatical, word or spelling errors. Time with Patient: Less than 30
[2023-11-05] MEDS: CEFEPIME 2 GM in SODIUM CHLORIDE 0.9% 100 ML IVPB SCH (15:36)
--- NOTE | 2023-11-05 15:56 | P.PN ---
Subjective Progress Note Date: 11/05/23 Hospital course: Patient is a pleasant 77-year-old male with a past medical history of congestive systolic heart failure with previously known EF of 40 to 45%, hypertension, GERD, obstructive sleep apnea, BPH requiring frequent straight catheterizations and at times Garcia catheter, chronic back pain with bilateral lower extremity neuropathies and restless legs, macular degeneration, and bilateral cataract removal with lens implants. He presented to the emergency department on 10/26/2023 with a chief complaint of generalized weakness. Upon arrival to our facility patient underwent evaluation. Vital signs in the emergency department show blood pressure 143/74, heart rate 86, respiratory rate 18, temp 99.6, and SpO2 of 95% on room air, shortly after arrival temp elevated as high as 101.3 F. EKG completed showing sinus mechanism at 86 bpm. Chest x-ray completed showing mild cardiomegaly with overall hazy densities related to overlying soft tissue/body habitus. Labs completed and reviewed. CBC showing leukocytosis with WBC count of 14.4 and macrocytosis with MCV of 100.2. BMP showing hyponatremia with sodium of 134 otherwise normal findings. Lactic acid was 1.3. Magnesium 1.8. Liver profile unremarkable. Urinalysis contaminated specimen but appears positive for infection, urine kappa light 6.17 and urine free lambda light 0.68. Free kappa LC quant was 2.06. Influenza A, influenza B, RSV, and COVID were negative. Patient was started on IV antibiotics with Rocephin admitted under our services for acute cystitis and generalized weakness. Echocardiogram was completed showing preserved EF of 55% and mildly increased left ventricular wall thickness. Urine culture positive for Pseudomonas aeruginosa. Blood culture showing no growth to date. C. difficile positive. Started on oral vancomycin in addition to his cefepime for treatment of Pseudomonas UTI. Patient's condition worsened and WBC count significantly increasing concerning for fulminant C. difficile. Patient was started on IV Flagyl in addition to oral vancomycin and a CT abdomen and pelvis was completed. CT abdomen and pelvis revealed severe pancolitis with colonic distention up to 7.5 cm with no pneumatosis or free air noted at this time. Consult was placed to general surgery infectious disease. Patient was started on vancomycin enemas and fidaxomicin in addition to oral vancomycin and IV Flagyl. He was evaluated by general surgery team who stated that taking patient to the OR could result in significant morbidity and/or mortality and recommending continuation of appropriate antibiotics and resuscitation measures at this time. 10/31/2023 patient was transferred to the ICU and an arterial line was placed for close monitoring of hemodynamic status. Patient's condition improving and he was transferred back to stepdown unit on 11/02/2023. Physical exam: Patient seen and fully evaluated at bedside this morning. Patient reports diarrhea seems to have thickened up but remains persistent with fecal management system in place. He denies having any abdominal pain/cramping this morning and denied any tenderness upon palpation. Vital signs reviewed and stable. General: Nontoxic, no distress and appears stated age. Obese. Derm: Skin warm and dry, normal coloration for ethnicity. Head: Atraumatic, normocephalic and symmetric. Eyes: EOMs intact, no lid lag, and anicteric sclera Mouth: no lip lesions, mucus membranes moist Cardiovascular: regular rate and rhythm with normal S1S2, no murmur, positive posterior tibial pulses bilaterally, and cap refill < 2 seconds. Lungs: Respirations even, regular, and unlabored on room air. Lungs diminished, no rhonchi, no rales, no wheezing, and no accessory muscle usage. Abdominal: Obese abdomen soft, nontender to palpation, no guarding, no appreciab le organomegaly. Garcia catheter in place. Fecal Management system in place. Ext: ROM intact. No gross muscle atrophy, no edema, no contractures Neuro: Speech clear, face symmetrical and CN II-XII grossly intact with no noted focal neuro deficits Psych: Alert and oriented to person, place, time, and situation. Appropriate and pleasant affect. Assessment and Plan of Care: Fulminant C. difficile Infection Pseudomonas aeruginosa UTI, associated with chronic Garcia catheter use Acute kidney injury Sepsis upon arrival, secondary to above Severe leukocytosis Hyponatremia, secondary to fluid volume depletion resulting from persistent diarrhea Generalized weakness, likely secondary to above -Urine culture positive for Pseudomonas aeruginosa. Per culture and sensitivity report, patient to continue cefepime 2 g every 12 hours. -C. difficile was positive. Patient to continue oral vancomycin 500 mg every 6 hours, vancomycin enemas every 6 hours, Fidaxomicin 200 mg twice daily, and Flagyl 500 mg every 8 hours IVPB. -Infectious disease following, reviewed documentation in chart -Continue to hold Aldactone secondary to need for IV fluid hydration. -Continue to hold losartan held secondary to hypotension and acute kidney injury -Continue Garcia catheter management and fecal management system with strict I's and O's. -Blood cultures negative -Patient hyponatremic with sodium of 127, continue gentle IV fluid hydration with 0.9% normal saline at 50 cc/h -Continue cholestyramine 4 g twice daily. -Continue doxazosin 8 mg nightly for BPH with chronic urinary output obstruction. -PT/OT following secondary to generalized weakness recommending inpatient rehab Chronic systolic heart failure with previously known EF of 40 to 45% now improved to 55% Hypertension, history of hypertension now with hypotension -Repeat echocardiogram was completed and report reviewed now showing preserved EF of 55% and mildly increased left ventricular wall thickness. -Aldactone and losartan held at this time secondary to need for IV fluid hydration and hypotension. -Continue aspirin 325 mg daily. -Close monitoring of vital signs every 4 hours. Elevated light chains Low QRS voltage on EKG Urine kappa light 6.17 and urine free lambda light 0.68. Free kappa LC quant was 2.06. Hematology evaluated, recommend follow-up in their clinic in 3 months to repeat paraproteinemia labs Obstructive sleep apnea Continue CPAP nightly and while napping. Morbid obesity, class III with BMI 52.8 kg/m -Recommend outpatient structured weight management program. Hypokalemia. Resolved. Data and imaging reviewed: Morning labs reviewed. CBC showing improvement of WBC count down to 30.96 this morning. BMP showing continued hyponatremia with sodium of 31 chloride of 106, bicarb of 15.2 and anion gap of 9.80 with BUN improving to 30.9. Blood glucose was 136. Vital signs reviewed. Blood pressure 86/77, heart rate 83, respiratory rate 18, temp 98.3 F, and SpO2 of 93% on room air. Prognosis remains guarded at this time CODE STATUS: Full code DVT prophylaxis: Heparin Anticipated discharge date: Clinical course to determine Anticipated discharge place: Clinical course to determine, likely inpatient rehab Patient was seen independently by Nurse Pracitioner. This document was prepared using [employer] dictation software. Please allow for errors in superintendent distribution, while rare they do occur. Devante Oleary NP rendered care for this patient independently, reviewed the findings and plan as documented in the note above. I did not physically speak with or examine the patient on this date. Restart Losartan 25 mg PO daily with stable BP and renal function/ Objective - Vital Signs Vital signs: Vital Signs Temp 98.3 F 11/05/23 01:45 Pulse 79 11/05/23 01:45 Resp 16 11/05/23 01:45 BP 135/69 11/05/23 01:45 Pulse Ox 95 11/05/23 01:45 FiO2 Intake & Output 11/04/23 11/05/23 11/05/23 18:59 06:59 18:59 Intake Total 718 Output Total 550 1350 Balance 168 -1350 Intake: IV 210 Cefepime 2 gm In Sodium 100 Chloride 0.9% 100 ml @ 25 mls/hr IVPB Q12HR [facility] Rx #:[id number] Invasive Line 6 10 metroNIDAZOLE-NS PMX 500 100 mg In Saline 1 100ml.bag @ 100 mls/hr IVPB Q8H [facility] Rx#:[id number] Intake, IV Titration 150 Amount Sodium Chloride 0.9% 1, 150 000 ml @ 50 mls/hr IV . Q20H [facility] Rx#:[id number] Oral 358 Output: Urine 550 650 Uretheral (Garcia) 650 Stool 700 Other: Voiding Method Indwelling Catheter Indwelling Catheter ABP, PAP, CO, CI - Last Documented Arterial Blood Pressure 73/52 - Labs CBC & Chem 7: 11/05/23 06:32 11/05/23 06:32 Labs: Abnormal Lab Results - Last 24 Hours (Table) 11/04/23 11/04/23 Range/Units 11:58 11:58 WBC 32.5 H (3.8-10.6) k/uL RBC 4.25 L (4.30-5.90) m/uL MCV 103.1 H (80.0-100.0) fL Sodium 127 L (137-145) mmol/L Chloride 110 H (98-107) mmol/L Carbon Dioxide 17 L (22-30) mmol/L BUN 37 H (9-20) mg/dL Glucose 172 H (74-99) mg/dL Calcium 7.5 L (8.4-10.2) mg/dL Microbiology - Last 24 Hours (Table) 10/30/23 19:44 Blood Culture - Final Blood
[2023-11-06] MEDS: LOSARTAN 25 MG TAB PO SCH (08:08)
--- NOTE | 2023-11-06 11:54 | P.PN ---
Subjective Progress Note Date: 11/06/23 This is a 77-year-old white male with history of hypertension, obesity, chronic urinary retention, chronic systolic congestive heart failure with ejection fraction of 40 to 45%, patient was admitted to the hospital on 10/26/2023, his chief complaint was mostly a complaint of generalized weakness. Patient has been noticing more difficulty ambulating due to profound weakness in his lower extremities over quite some time. Patient got to the point where he could not help himself with transfers. Brought into the ER, and the patient was found to have a urinary tract infection and he was treated with anti biotics/cephalosporins. Since then, the patient was seen by many consultants including infectious disease, urology, and now the patient is being seen by general surgery. He was also seen by oncology. Infectious disease felt that the patient presented with sepsis secondary to urinary tract infection and his urine cultures came back positive for Pseudomonas aeruginosa. Apparently the patient went on to develop C. difficile colitis, and he developed severe diarrhea. Patient was treated with oral vancomycin, but went on to develop worsening abdominal discomfort and diarrhea in spite of oral vancomycin, CT of the abdomen and pelvis done yesterday showed evidence of pancolitis with colonic distention up to 7.5 cm there was no evidence of free air. There was also evidence of 1 cm stone at the right UPJ junction. And the patient was felt to have possibly early obstructive uropathy. There was also another 1.4 cm nonobstructive right renal stone. Patient was seen by urology, and he underwent cystoscopy and right ureteral stent insertion. Today the patient was seen by general surgery on consultation, and became quite concerned about his colonic distention as the patient may be developing a toxic megacolon. Hence recommended transfer to the ICU. I did evaluate the patient on the floor, he is on room air, comfortable, blood pressure is soft, patient is not in any distress but he does seem to be a bit lethargic, and profoundly weak. Hence recommended that we monitor the patient in the ICU and I transferred the patient after my evaluation. Labs today showed significant leukocytosis/leukemoid reaction with WBC count of 65.5, hemoglobin 13.7. Sodium is a bit low at 127 BUN is 52 creatinine 1.35, bicarb is 18 anion gap is normal. Lactic acid yesterday was 1.8. Patient was reevaluated today on 11/01/2023, patient remains in the ICU, he made a significant clinical improvement over the last 24 hours. Blood pressure remained stable patient denies any nausea vomiting abdominal pain, his clinical abdominal findings seem to be benign today. Patient remains on IV fluid at 100 cc/h in the form of 0.9 normal saline, he has a fecal system in place and has no evidence of bleeding, stools are loose, no GI bleeding, and no black or tarry stools. Continues to have leukocytosis/leukemoid reaction with WBC count of 65.9 hemoglobin 15.8 sodium is better today up to 129 bicarb remains a bit low at 16 BUN is 53 creatinine 1.04, improved compared to yesterday creatinine of 1. 35. Patient did receive the fluid boluses yesterday for slightly elevated lactic acid. And clearly the patient does not need surgical intervention at this point. Lactic acid yesterday was 1.2 went down from 1.8. Flatplate of the abdomen yesterday showed nonspecific bowel gas pattern without radiographic evidence of acute process. The patient is seen today November 02, 2023 in follow-up in the intensive care unit. He is currently awake and alert in no acute distress. He is maintaining good O2 saturations in the 90s on room air. He has normal staying at 100 MLS per hour. He remains on oral vancomycin, cefepime, Flagyl, Dificid for his C. difficile colitis and urinary tract infection. He did undergo ureteral stenting on 10/30/2023. Urine culture was positive for Pseudomonas aeruginosa. Blood cultures revealing no growth. White count 53.3. Hemoglobin 13.3. Platelets 289. Sodium 129. Potassium 3.8. Bicarb 17. BUN 51. Creatinine 0.99. Glucose 116. He is afebrile. Hemodynamically stable. The patient is seen today November 05, 2023 in follow-up on the regular medical floor. Is awake and alert in no acute distress. Resting in bed. He denies any worsening shortness of breath, cough or congestion. Maintaining O2 saturations in the 90s on room air. He is afebrile. Hemodynamically stable. Urine culture was positive for Pseudomonas aeruginosa. Blood cultures revealed no growth. White count 38.9. Hemoglobin 14.5. Platelets 318. Sodium 131. Potassium 4.5. Bicarb 15. BUN 31. Creatinine 0.8. Glucose 136. He is continued on cefepime, Flagyl, Zosyn and Dificid. Heparin for DVT prophylaxis. The patient is seen today November 06, 2023 in follow-up on the regular medical floor. He is resting comfortably in bed. Awake and alert in no acute distress. He is receiving normal saline at KVO. He is continued on cefepime, Dificid, Flagyl and vancomycin. He did have Pseudomonas in the urine. No new labs today. Recent white count was 30.9. Heparin for DVT prophylaxis. Objective - Vital Signs Vital signs: Vital Signs Temp 97.8 F 11/06/23 08:00 Pulse 84 11/06/23 08:20 Resp 16 11/06/23 08:20 BP 120/81 11/06/23 08:00 Pulse Ox 96 11/06/23 08:00 FiO2 Intake & Output 11/05/23 11/06/23 11/06/23 18:59 06:59 18:59 Output Total 900 500 Balance -900 -500 Weight 152.861 kg Output: Urine 700 500 Stool 200 Other: Voiding Method Indwelling Catheter Indwelling Catheter Indwelling Catheter ABP, PAP, CO, CI - Last Documented Arterial Blood Pressure 73/52 - Exam GENERAL EXAM: Alert, pleasant 77-year-old male, on room air, in no apparent distress. HEAD: Normocephalic. EYES: Normal reaction of pupils, equal size. NOSE: Clear with pink turbinates. THROAT: No erythema or exudates. NECK: No masses, no JVD. CHEST: No chest wall deformity. LUNGS: Equal air entry with no crackles, wheeze, rhonchi or dullness. CVS: S1 and S2 normal with no audible murmur, regular rhythm. ABDOMEN: No hepatosplenomegaly, normal bowel sounds, no guarding or rigidity. SPINE: No scoliosis or deformity SKIN: No rashes CENTRAL NERVOUS SYSTEM: No focal deficits, tone is normal in all 4 extremities. EXTREMITIES: There is no peripheral edema. No clubbing, no cyanosis. Peripheral pulses are intact. - Labs CBC & Chem 7: 11/05/23 06:32 11/05/23 06:32 Assessment and Plan Assessment: Acute sepsis secondary to C. difficile colitis and pseudomonal urinary tract infection, patient has been treated with cefepime, he is now on vancomycin orally, Flagyl and dificid, receiving vancomycin enema Doubt toxic megacolon at this point. CT scan of the abdomen reveals ongoing pancolitis. Severe wall thickening along the right side of the colon present pr eviously. Worsening generalized anasarca change now with trace pleural effusions and mild ascites. Interval placement of a right ureteral stent Hypovolemic hyponatremia secondary to diarrhea. Improved with hydration and fluid boluses History of congestive heart failure with preserved ejection fraction, continue to hold diuretics Obstructive uropathy and hydronephrosis requiring cystoscopy and right ureteral stent insertion on 10/30/23 Morbid obesity History of obstructive sleep apnea Generalized weakness, multifactorial. Plan: The patient was seen and evaluated Medications reviewed Antibiotics per ID service Heparin for DVT prophylaxis Stable and on room air Plan is for subacute rehab at discharge We will continue to follow I have personally seen and examined the patient, performed the documentation and the assessment and plan as written. Number of minutes spent on the visit: 10.
[2023-11-06 13:43] LABS: ALT 16 U/L (4-49); AST 25 U/L (17-59); African American GFR (CKD) >90 (>60 ml/min/1.73 sqM); Albumin 1.8 g/dL (3.5-5.0); Albumin/Globulin Ratio 0.9; Alkaline Phosphatase 69 U/L (38-126); Anion Gap 2 mmol/L; Blood Urea Nitrogen 26 mg/dL (9-20); Calcium 7.7 mg/dL (8.4-10.2); Carbon Dioxide 16 mmol/L (22-30); Chloride 112 mmol/L (98-107); Globulin 2.1 g/dL; Glucose 169 mg/dL (74-99); Magnesium 2.1 mg/dL (1.6-2.3); Non-African American GFR(CKD) >90 (>60 ml/min/1.73 sqM); Potassium 4.5 mmol/L (3.5-5.1); Sodium 130 mmol/L (137-145); Total Bilirubin 0.4 mg/dL (0.2-1.3); Total Protein 3.9 g/dL (6.3-8.2)
[2023-11-06 13:45] LABS: HCT 46.6 % (39.0-53.0); HGB 14.6 gm/dL (13.0-17.5); MCH 31.7 pg (25.0-35.0); MCHC 31.3 g/dL (31.0-37.0); MCV 101.1 fL (80.0-100.0); Macrocytosis Slight; Mean Platelet Volume 7.7; Platelet Count 333 k/uL (150-450); RBC 4.61 m/uL (4.30-5.90); RDW 14.7 % (11.5-15.5); WBC 24.6 k/uL (3.8-10.6)
[2023-11-06] MEDS: VANCOMYCIN 500 MG, SODIUM CHLORIDE 0.9% 100 ML MISCELLANE SCH (13:57)
--- NOTE | 2023-11-06 14:22 | P.PN ---
Subjective Progress Note Date: 11/06/23 CHIEF COMPLAINT: C. difficile colitis HISTORY OF PRESENT ILLNESS: Patient is currently on regular medical floor. Denies any abdominal pain. Still has FMS in place for diarrhea. The amount of stool is decreasing. Denies any nausea or vomiting. Tolerating diet. Afebrile. WBC trending down from 30 to 24.6 PHYSICAL EXAM: VITAL SIGNS: Reviewed. GENERAL: no acute distress. ABDOMEN: Soft. Obese. Nondistended. Nontender NEUROLOGIC: Alert and oriented. Cranial nerves II through XII grossly intact. ASSESSMENT: 1. Severe C. difficile colitis PLAN: -Continue regular -Continue to monitor -Continue C. difficile treatment -No surgical intervention planned at this time Physician Cyber Security Administrator note has been reviewed by physician. Signing provider agrees with the documented findings, assessment, and plan of care. Objective - Vital Signs Vital signs: Vital Signs Temp 97.8 F 11/06/23 08:00 Pulse 84 11/06/23 08:20 Resp 16 11/06/23 08:20 BP 120/81 11/06/23 08:00 Pulse Ox 96 11/06/23 08:00 FiO2 Intake & Output 11/05/23 11/06/23 11/06/23 18:59 06:59 18:59 Output Total 900 500 Balance -900 -500 Weight 152.861 kg Output: Urine 700 500 Stool 200 Other: Voiding Method Indwelling Catheter Indwelling Catheter Indwelling Catheter ABP, PAP, CO, CI - Last Documented Arterial Blood Pressure 73/52 - Labs CBC & Chem 7: 11/06/23 12:56 11/06/23 12:56
--- NOTE | 2023-11-06 15:43 | P.PN ---
Subjective Progress Note Date: 11/06/23 Hospital course: Patient is a pleasant 77-year-old male with a past medical history of congestive systolic heart failure with previously known EF of 40 to 45%, hypertension, GERD, obstructive sleep apnea, BPH requiring frequent straight catheterizations and at times Garcia catheter, chronic back pain with bilateral lower extremity neuropathies and restless legs, macular degeneration, and bilateral cataract removal with lens implants. He presented to the emergency department on 10/26/2023 with a chief complaint of generalized weakness. Upon arrival to our facility patient underwent evaluation. Vital signs in the emergency department show blood pressure 143/74, heart rate 86, respiratory rate 18, temp 99.6, and SpO2 of 95% on room air, shortly after arrival temp elevated as high as 101.3 F. EKG completed showing sinus mechanism at 86 bpm. Chest x-ray completed showing mild cardiomegaly with overall hazy densities related to overlying soft tissue/body habitus. Labs completed and reviewed. CBC showing leukocytosis with WBC count of 14.4 and macrocytosis with MCV of 100.2. BMP showing hyponatremia with sodium of 134 otherwise normal findings. Lactic acid was 1.3. Magnesium 1.8. Liver profile unremarkable. Urinalysis contaminated specimen but appears positive for infection, urine kappa light 6.17 and urine free lambda light 0.68. Free kappa LC quant was 2.06. Influenza A, influenza B, RSV, and COVID were negative. Patient was started on IV antibiotics with Rocephin admitted under our services for acute cystitis and generalized weakness. Echocardiogram was completed showing preserved EF of 55% and mildly increased left ventricular wall thickness. Urine culture positive for Pseudomonas aeruginosa. Blood culture showing no growth to date. C. difficile positive. Started on oral vancomycin in addition to his cefepime for treatment of Pseudomonas UTI. Patient's condition worsened and WBC count significantly increasing concerning for fulminant C. difficile. Patient was started on IV Flagyl in addition to oral vancomycin and a CT abdomen and pelvis was completed. CT abdomen and pelvis revealed severe pancolitis with colonic distention up to 7.5 cm with no pneumatosis or free air noted at this time. Consult was placed to general surgery infectious disease. Patient was started on vancomycin enemas and fidaxomicin in addition to oral vancomycin and IV Flagyl. He was evaluated by general surgery team who stated that taking patient to the OR could result in significant morbidity and/or mortality and recommending continuation of appropriate antibiotics and resuscitation measures at this time. 10/31/2023 patient was transferred to the ICU and an arterial line was placed for close monitoring of hemodynamic status. Patient's condition improving and he was transferred back to stepdown unit on 11/02/2023. Physical exam: Patient seen and fully evaluated at bedside this morning. He appeared to be resting comfortably. He denies having any pain or discomfort at the moment. Patient just reports feeling very tired. Garcia catheter and fecal management system remain in place. Patient continues to have liquid stools. Vital signs reviewed and stable. General: Nontoxic, no distress and appears stated age. Obese. Derm: Skin warm and dry, normal coloration for ethnicity. Head: Atraumatic, normocephalic and symmetric. Eyes: EOMs intact, no lid lag, and anicteric sclera Mouth: no lip lesions, mucus membranes moist Cardiovascular: regular rate and rhythm with normal S1S2, no murmur, positive posterior tibial pulses bilaterally, and cap refill < 2 seconds. Lungs: Respirations even, regular, and unlabored on room air. Lungs diminished, no rhonchi, no rales, no wheezing, and no accessory muscle usage. Abdominal: Obese abdomen soft, nontender to palpation, no guarding, no appreciable organomegaly. Garcia catheter in place. Fecal Management system in place. Ext: ROM intact. No gross muscle atrophy, no edema, no contractures Neuro: Speech clear, face symmetrical and CN II-XII grossly intact with no noted focal neuro deficits Psych: Alert and oriented to person, place, time, and situation. Appropriate and pleasant affect. Assessment and Plan of Care: Fulminant C. difficile Infection Pseudomonas aeruginosa UTI, associated with chronic Garcia catheter use Acute kidney injury Sepsis upon arrival, secondary to above Severe leukocytosis Hyponatremia, secondary to fluid volume depletion resulting from persistent diarrhea Generalized weakness, likely secondary to above -Urine culture was positive for Pseudomonas aeruginosa. Per culture and sensitivity report, patient to continue cefepime 2 g every 12 hours. -C. difficile was positive. Patient to continue oral vancomycin 500 mg every 6 hours, vancomycin enemas every 6 hours, Fidaxomicin 200 mg twice daily, and Flagyl 500 mg every 8 hours IVPB. -Infectious disease following, managing antibiotic regimen. -Continue to hold Aldactone secondary to need for IV fluid hydration. -Continue Garcia catheter management and fecal management system with strict I's and O's. -Blood cultures negative -Patient hyponatremic with sodium of 127, continue gentle IV fluid hydration with 0.9% normal saline at 50 cc/h -Continue cholestyramine 4 g twice daily. -Continue doxazosin 8 mg nightly for BPH with chronic urinary output obstruction. -PT/OT following secondary to generalized weakness recommending inpatient rehab vs SNF upon discharge Chronic systolic heart failure with previously known EF of 40 to 45% now improv ed to 55% Hypertension, history of hypertension now with hypotension -Repeat echocardiogram was completed and report reviewed now showing preserved EF of 55% and mildly increased left ventricular wall thickness. -Aldactone held at this time secondary to need for IV fluid hydration -Resume the losartan 25 mg daily. -Continue aspirin 325 mg daily. -Close monitoring of vital signs every 4 hours. Elevated light chains Low QRS voltage on EKG Urine kappa light 6.17 and urine free lambda light 0.68. Free kappa LC quant was 2.06. Hematology evaluated, recommend follow-up in their clinic in 3 months to repeat paraproteinemia labs Obstructive sleep apnea Continue CPAP nightly and while napping. Morbid obesity, class III with BMI 52.8 kg/m -Recommend outpatient structured weight management program. Hypokalemia. Resolved. Data and imaging reviewed: Morning labs reviewed. CBC showing improvement of WBC count down to 24.6. BMP showing continued hyponatremia with sodium of 130, chloride of 112, bicarb 16, and anion gap of 2 with renal function showing BUN of 26, creatinine 0.62, GFR greater than 90. Blood glucose 169. Magnesium 2.1. Vital signs reviewed. Blood pressure 120/81, heart rate 84, respiratory rate 16, temp 97.8 F, and SpO2 of 96% on room air. Patient's condition is improving but prognosis remains slightly guarded at this time. CODE STATUS: Full code DVT prophylaxis: Heparin Anticipated discharge date: Clinical course to determine Anticipated discharge place: Clinical course to determine, likely inpatient rehab vs SNF Patient was seen independently by Nurse Pracitioner. This document was prepared using [employer] dictation software. Please allow for errors in floor renovator, while rare they do occur. Objective - Vital Signs Vital signs: Vital Signs Temp 98.3 F 11/06/23 01:46 Pulse 79 11/06/23 01:46 Resp 16 11/06/23 01:46 BP 120/76 11/06/23 01:46 Pulse Ox 95 11/06/23 01:46 FiO2 Intake & Output 11/05/23 11/06/23 11/06/23 18:59 06:59 18:59 Output Total 900 500 Balance -900 -500 Weight 152.861 kg Output: Urine 700 500 Stool 200 Other: Voiding Method Indwelling Catheter Indwelling Catheter ABP, PAP, CO, CI - Last Documented Arterial Blood Pressure 73/52 - Labs CBC & Chem 7: 11/06/23 12:56 11/06/23 12:56 Labs: Abnormal Lab Results - Last 24 Hours (Table) 11/05/23 11/05/23 Range/Units 06:32 06:32 WBC 30.96 H (4.50-10.00) X 10*3/uL MCV 99.6 H (80.0-97.0) FL MCH 32.3 H (27.0-32.0) pg RDW 15.5 H (11.5-14.5) % NRBC/100 WBC Diff 0.05 H (0.00-0.01) X 10*3/uL Sodium 131 L (135-145) mmol/L Carbon Dioxide 15.2 L (21.6-31.8) mmol/L BUN 30.9 H (9.0-27.0) mg/dL BUN/Creatinine Ratio 38.62 H (12.00-20.00) Ratio Glucose 136 H (70-110) mg/dL Calcium 7.8 L (8.7-10.3) mg/dL Total Bilirubin 0.2 L (0.3-1.2) mg/dL Total Protein 4.1 L (6.2-8.2) g/dL Albumin 2.5 L (3.8-4.9) g/dL Albumin/Globulin Ratio 1.56 L (1.60-3.17) Ratio
--- NOTE | 2023-11-06 16:01 | P.PN ---
Subjective Progress Note Date: 11/06/23 Principal diagnosis: Reason for follow-up is C. difficile colitis UTI and leukocytosis Patient is a 77-year-old male with a past medical history significant for hypertension osteoarthritis sleep apnea reflux patient did have a BPH and self catheterize himself because of urine retention, presented to hospital after a fall with weakness he did have a positive UA and has been treated for a UTI also has significant diarrhea stool for C. difficile came back positive pro mpting this consultation. On today's evaluation that is 11/06/2023, Patient is afebrile patient is c urrently on room air and denies having any shortness of breath, the patient denies any chest pain or cough, the patient denies any nausea vomiting complaining of some abdominal fullness but no pain still have the fecal management system and denies any worsening output by the nursing staff. Patient white count is down to 24.6, creatinine 0.62 Objective - Vital Signs Vital signs: Vital Signs Temp 97.8 F 11/06/23 08:00 Pulse 84 11/06/23 08:20 Resp 16 11/06/23 08:20 BP 120/81 11/06/23 08:00 Pulse Ox 96 11/06/23 08:00 FiO2 Intake & Output 11/05/23 11/06/23 11/06/23 18:59 06:59 18:59 Output Total 900 500 Balance -900 -500 Weight 152.861 kg Output: Urine 700 500 Stool 200 Other: Voiding Method Indwelling Catheter Indwelling Catheter Indwelling Catheter ABP, PAP, CO, CI - Last Documented Arterial Blood Pressure 73/52 - Exam GENERAL DESCRIPTION: An elderly male lying in bed in no distress RESPIRATORY SYSTEM: Unlabored breathing , decreased breath sounds at bases HEART: S1 S2 regular rate and rhythm , ABDOMEN: Soft , mild distention and tenderness EXTREMITIES: No edema feet - Labs CBC & Chem 7: 11/06/23 12:56 11/06/23 12:56 Assessment and Plan (1) C. difficile colitis Current Visit: Yes Status: Acute Priority: Medium Code(s): A04.72 - ENTEROCOLITIS D/T CLOSTRIDIUM DIFFICILE, NOT SPCF RECUR SNOMED Code(s): 180707896 (2) Leukocytosis Current Visit: Yes Status: Acute Priority: Medium Code(s): D72.829 - ELEVATED WHITE BLOOD CELL COUNT, UNSPECIFIED SNOMED Code(s): 579707826 (3) Urinary tract infection Current Visit: Yes Status: Acute Priority: Medium Code(s): N39.0 - URINARY TRACT INFECTION, SITE NOT SPECIFIED SNOMED Code(s): 46378417 Plan: 1patient with a complicated history and this patient initially presented to the hospital with sepsis as the patient did have a fever elevated white count source likely UTI with urine culture finalized with Pseudomonas aeruginosa, patient did have a CT abdominal pelvis CT shows evidence of hydronephrosis and ureteral stone in this patient who is status post cystoscopy and ureteral stent placement patient is currently covered with the cefepime concerning for pyelonephritis/complicated UTI which will be continued for short course 2patient did have severe C. difficile colitis patient is slowly clinical improvement patient white count down to 24.6 we will keep the patient on vancomycin and Flagyl avoid antimotility agent Dictation was produced using [employer] dictation software. please excuse any grammatical, word or spelling errors. Time with Patient: Less than 30
[2023-11-07 09:37] LABS: ALT 18 U/L (4-49); AST 31 U/L (17-59); African American GFR (CKD) >90 (>60 ml/min/1.73 sqM); Albumin 2.1 g/dL (3.5-5.0); Alkaline Phosphatase 71 U/L (38-126); Anion Gap 3 mmol/L; Blood Urea Nitrogen 27 mg/dL (9-20); Calcium 8.2 mg/dL (8.4-10.2); Carbon Dioxide 19 mmol/L (22-30); Chloride 109 mmol/L (98-107); Globulin 2.2 g/dL; Glucose 151 mg/dL (74-99); HCT 50.9 % (39.0-53.0); HGB 16.2 gm/dL (13.0-17.5); Hypochromasia Slight; MCH 32.3 pg (25.0-35.0); MCHC 31.8 g/dL (31.0-37.0); MCV 101.6 fL (80.0-100.0); Macrocytosis Slight; Magnesium 2.2 mg/dL (1.6-2.3); Mean Platelet Volume 8.1; Non-African American GFR(CKD) >90 (>60 ml/min/1.73 sqM); Platelet Count 323 k/uL (150-450); Potassium 4.7 mmol/L (3.5-5.1); RDW 14.9 % (11.5-15.5); Sodium 131 mmol/L (137-145); Total Bilirubin 0.7 mg/dL (0.2-1.3); Total Protein 4.3 g/dL (6.3-8.2)
[2023-11-07 10:44] LABS: Band Neutrophils % 4 %; Eosinophils # (M) 0.23 k/uL (0-0.7); Lymphocytes # (M) 1.38 k/uL (1.0-4.8); Metamyelocytes # (M) 0.23 k/uL (0); Metamyelocytes % 1 %; Monocytes # (M) 0.92 k/uL (0-1.0); Neutrophils % (M) 85 %; Nucleated Red Blood Cells 0 /100 WBC (0-0); Total Cells Counted 200
--- NOTE | 2023-11-07 11:30 | P.PN ---
Progress Note - Text Progress Note Date: 11/07/23 CHIEF COMPLAINT: C. difficile colitis HISTORY OF PRESENT ILLNESS: Patient is currently on regular medical floor. Denies any abdominal pain. Still has FMS in place for diarrhea. The amount of stool is decreasing. Denies any nausea or vomiting. Tolerating diet. Afebrile. WBC trending down PHYSICAL EXAM: VITAL SIGNS: Reviewed. GENERAL: no acute distress. ABDOMEN: Soft. Obese. Nondistended. Nontender NEUROLOGIC: Alert and oriented. Cranial nerves II through XII grossly intact. ASSESSMENT: 1. Severe C. difficile colitis PLAN: -Continue regular -Continue to monitor -Continue C. difficile treatment -No surgical intervention planned at this time
--- NOTE | 2023-11-07 12:13 | P.PN ---
Subjective Progress Note Date: 11/07/23 This is a 77-year-old white male with history of hypertension, obesity, chronic urinary retention, chronic systolic congestive heart failure with ejection fraction of 40 to 45%, patient was admitted to the hospital on 10/26/2023, his chief complaint was mostly a complaint of generalized weakness. Patient has been noticing more difficulty ambulating due to profound weakness in his lower extremities over quite some time. Patient got to the point where he could not help himself with transfers. Brought into the ER, and the patient was found to have a urinary tract infection and he was treated with anti biotics/cephalosporins. Since then, the patient was seen by many consultants including infectious disease, urology, and now the patient is being seen by general surgery. He was also seen by oncology. Infectious disease felt that the patient presented with sepsis secondary to urinary tract infection and his urine cultures came back positive for Pseudomonas aeruginosa. Apparently the patient went on to develop C. difficile colitis, and he developed severe diarrhea. Patient was treated with oral vancomycin, but went on to develop worsening abdominal discomfort and diarrhea in spite of oral vancomycin, CT of the abdomen and pelvis done yesterday showed evidence of pancolitis with colonic distention up to 7.5 cm there was no evidence of free air. There was also evidence of 1 cm stone at the right UPJ junction. And the patient was felt to have possibly early obstructive uropathy. There was also another 1.4 cm nonobstructive right renal stone. Patient was seen by urology, and he underwent cystoscopy and right ureteral stent insertion. Today the patient was seen by general surgery on consultation, and became quite concerned about his colonic distention as the patient may be developing a toxic megacolon. Hence recommended transfer to the ICU. I did evaluate the patient on the floor, he is on room air, comfortable, blood pressure is soft, patient is not in any distress but he does seem to be a bit lethargic, and profoundly weak. Hence recommended that we monitor the patient in the ICU and I transferred the patient after my evaluation. Labs today showed significant leukocytosis/leukemoid reaction with WBC count of 65.5, hemoglobin 13.7. Sodium is a bit low at 127 BUN is 52 creatinine 1.35, bicarb is 18 anion gap is normal. Lactic acid yesterday was 1.8. Patient was reevaluated today on 11/01/2023, patient remains in the ICU, he made a significant clinical improvement over the last 24 hours. Blood pressure remained stable patient denies any nausea vomiting abdominal pain, his clinical abdominal findings seem to be benign today. Patient remains on IV fluid at 100 cc/h in the form of 0.9 normal saline, he has a fecal system in place and has no evidence of bleeding, stools are loose, no GI bleeding, and no black or tarry stools. Continues to have leukocytosis/leukemoid reaction with WBC count of 65.9 hemoglobin 15.8 sodium is better today up to 129 bicarb remains a bit low at 16 BUN is 53 creatinine 1.04, improved compared to yesterday creatinine of 1. 35. Patient did receive the fluid boluses yesterday for slightly elevated lactic acid. And clearly the patient does not need surgical intervention at this point. Lactic acid yesterday was 1.2 went down from 1.8. Flatplate of the abdomen yesterday showed nonspecific bowel gas pattern without radiographic evidence of acute process. The patient is seen today November 02, 2023 in follow-up in the intensive care unit. He is currently awake and alert in no acute distress. He is maintaining good O2 saturations in the 90s on room air. He has normal staying at 100 MLS per hour. He remains on oral vancomycin, cefepime, Flagyl, Dificid for his C. difficile colitis and urinary tract infection. He did undergo ureteral stenting on 10/30/2023. Urine culture was positive for Pseudomonas aeruginosa. Blood cultures revealing no growth. White count 53.3. Hemoglobin 13.3. Platelets 289. Sodium 129. Potassium 3.8. Bicarb 17. BUN 51. Creatinine 0.99. Glucose 116. He is afebrile. Hemodynamically stable. The patient is seen today November 05, 2023 in follow-up on the regular medical floor. Is awake and alert in no acute distress. Resting in bed. He denies any worsening shortness of breath, cough or congestion. Maintaining O2 saturations in the 90s on room air. He is afebrile. Hemodynamically stable. Urine culture was positive for Pseudomonas aeruginosa. Blood cultures revealed no growth. White count 38.9. Hemoglobin 14.5. Platelets 318. Sodium 131. Potassium 4.5. Bicarb 15. BUN 31. Creatinine 0.8. Glucose 136. He is continued on cefepime, Flagyl, Zosyn and Dificid. Heparin for DVT prophylaxis. The patient is seen today November 06, 2023 in follow-up on the regular medical floor. He is resting comfortably in bed. Awake and alert in no acute distress. He is receiving normal saline at KVO. He is continued on cefepime, Dificid, Flagyl and vancomycin. He did have Pseudomonas in the urine. No new labs today. Recent white count was 30.9. Heparin for DVT prophylaxis. The patient is seen today November 07, 2023 in follow-up on the regular medical floor. He is awake and alert in no acute distress. Resting quite comfortably in bed. He continues to maintain good O2 saturations in the 90s on room air. No IV fluids. He remains on cefepime, Flagyl, vancomycin. Heparin for DVT prophylaxis. Follow-up blood cultures revealed no growth. Urine culture was positive for Pseudomonas aeruginosa. White count 23.0. Hemoglobin 16.2. Platelets 323. Sodium 131. Potassium 4.7. Bicarb 19. BUN 27. Creatinine 0.69. Objective - Vital Signs Vital signs: Vital Signs Temp 97.4 F L 11/07/23 08:19 Pulse 89 11/07/23 08:19 Resp 20 11/07/23 08:19 BP 111/75 11/07/23 08:19 Pulse Ox 96 11/07/23 08:19 FiO2 Intake & Output 11/06/23 11/07/23 11/07/23 18:59 06:59 18:59 Output Total 600 1500 Balance -600 -1500 Output: Urine 600 500 Urine/Stool Mix 1000 Other: Voiding Method Indwelling Catheter Indwelling Catheter Indwelling Catheter ABP, PAP, CO, CI - Last Documented Arterial Blood Pressure 73/52 - Exam GENERAL EXAM: Alert, 77-year-old male, resting comfortably in bed, on room air, in no apparent distress. HEAD: Normocephalic. EYES: Normal reaction of pupils, equal size. NOSE: Clear with pink turbinates. THROAT: No erythema or exudates. NECK: No masses, no JVD. CHEST: No chest wall deformity. LUNGS: Equal air entry with no crackles, wheeze, rhonchi or dullness. CVS: S1 and S2 normal with no audible murmur, regular rhythm. ABDOMEN: No hepatosplenomegaly, normal bowel sounds, no guarding or rigidity. SPINE: No scoliosis or deformity SKIN: No rashes CENTRAL NERVOUS SYSTEM: No focal deficits, tone is normal in all 4 extremities. EXTREMITIES: There is no peripheral edema. No clubbing, no cyanosis. Periph eral pulses are intact. - Labs CBC & Chem 7: 11/07/23 08:46 11/07/23 08:46 Labs: Abnormal Lab Results - Last 24 Hours (Table) 11/06/23 11/06/23 11/07/23 Range/Units 12:56 12:56 08:46 WBC 24.6 H 23.0 H (3.8-10.6) k/uL MCV 101.1 H 101.6 H (80.0-100.0) fL Neutrophils # (Manual) 20.40 H (1.3-7.7) k/uL Metamyelocytes # (Man) 0.23 H (0) k/uL Sodium 130 L (137-145) mmol/L Chloride 112 H (98-107) mmol/L Carbon Dioxide 16 L (22-30) mmol/L BUN 26 H (9-20) mg/dL Creatinine 0.62 L (0.66-1.25) mg/dL Glucose 169 H (74-99) mg/dL Calcium 7.7 L (8.4-10.2) mg/dL Total Protein 3.9 L (6.3-8.2) g/dL Albumin 1.8 L (3.5-5.0) g/dL 11/07/23 Range/Units 08:46 WBC (3.8-10.6) k/uL MCV (80.0-100.0) fL Neutrophils # (Manual) (1.3-7.7) k/uL Metamyelocytes # (Man) (0) k/uL Sodium 131 L (137-145) mmol/L Chloride 109 H (98-107) mmol/L Carbon Dioxide 19 L (22-30) mmol/L BUN 27 H (9-20) mg/dL Creatinine (0.66-1.25) mg/dL Glucose 151 H (74-99) mg/dL Calcium 8.2 L (8.4-10.2) mg/dL Total Protein 4.3 L (6.3-8.2) g/dL Albumin 2.1 L (3.5-5.0) g/dL Assessment and Plan Assessment: Acute sepsis secondary to C. difficile colitis and pseudomonal urinary tract infection, patient has been treated with cefepime, vancomycin orally, Flagyl Doubt toxic megacolon at this point. CT scan of the abdomen reveals ongoing pancolitis. Severe wall thickening along the right side of the colon present previously. Worsening generalized anasarca change now with trace pleural effusions and mild ascites. Interval placement of a right ureteral stent Hypovolemic hyponatremia secondary to diarrhea. Improved with hydration and fluid boluses History of congestive heart failure with preserved ejection fraction, continue to hold diuretics Obstructive uropathy and hydronephrosis requiring cystoscopy and right ureteral stent insertion on 10/30/23 Morbid obesity History of obstructive sleep apnea Generalized weakness, multifactorial. Plan: The patient was seen and evaluated Medications and labs reviewed Antibiotics per ID service Stable and on room air Plan is for subacute rehab at discharge I have personally seen and examined the patient, performed the documentation and the assessment and plan as written. Number of minutes spent on the visit: 10.
--- NOTE | 2023-11-07 13:50 | P.PN ---
Subjective Progress Note Date: 11/07/23 Hospital Course: Patient is a pleasant 77-year-old male with a past medical history of congestive systolic heart failure with previously known EF of 40 to 45%, hypertension, GERD, obstructive sleep apnea, BPH requiring frequent straight catheterizations and at times Garcia catheter, chronic back pain with bilateral lower extremity neuropathies and restless legs, macular degeneration, and bilateral cataract removal with lens implants. He presented to the emergency department on 10/26/2023 with a chief complaint of generalized weakness. Upon arrival to our facility patient underwent evaluation. Vital signs in the emergency department show blood pressure 143/74, heart rate 86, respiratory rate 18, temp 99.6, and SpO2 of 95% on room air, shortly after arrival temp elevated as high as 101.3 F. EKG completed showing sinus mechanism at 86 bpm. Chest x-ray completed showing mild cardiomegaly with overall hazy densities related to overlying soft tissue/body habitus. CBC showing leukocytosis with WBC count of 14.4 and macrocytosis with MCV of 100.2. BMP showing hyponatremia with sodium of 134 otherwise normal findings. Lactic acid was 1.3. Magnesium 1.8. Liver profile unremarkable. Urinalysis contaminated specimen but appears positive for infection, urine kappa light 6.17 and urine free lambda light 0.68. Free kappa LC quant was 2.06. Influenza A, influenza B, RSV, and COVID were negative. Patient was started on IV antibiotics with Rocephin admitted under our services for acute cystitis and generalized weakness. Echocardiogram was completed showing preserved EF of 55% and mildly increased left ventricular wall thickness. Urine culture positive for Pseudomonas aeruginosa. Blood culture showing no growth to date. C. difficile positive. Started on oral vancomycin in addition to his cefepime for treatment of Pseudomonas UTI. Patient's condition worsened and WBC count significantly increasing concerning for fulminant C. difficile. Patient was started on IV Flagyl in addition to oral vancomycin and a CT abdomen and pelvis was completed. CT abdomen and pelvis revealed severe pancolitis with colonic distention up to 7.5 cm with no pneumatosis or free air noted at this time. Consult was placed to general surgery infectious disease. Patient was started on vancomycin enemas and fidaxomicin in addition to oral vancomycin and IV Flagyl. He was evaluated by general surgery team who stated that taking patient to the OR could result in significant morbidity and/or mortality and recommending continuation of appropriate antibiotics and resuscitation measures at this time. 10/31/2023 patient was transferred to the ICU and an arterial line was placed for close monitoring of hemodynamic status. Patient's condition improving and he was transferred back to stepdown unit on 11/02/2023. Has a fecal management system in place as well as Garcia catheter. Subjective: Patient seen and examined at bedside. No acute events overnight. Fecal management system in place. Output has been slowing. Urinary catheter in place. Pertinent positives and negatives as discussed above, a complete review of systems was performed and all other systems are negative. Vitals Signs Reviewed. General: Nontoxic, no distress, appears at stated age, morbidly obese, ge neralized anasarca Derm: Warm, dry Head: Atraumatic, normocephalic, symmetric Eyes: EOMI, no lid lag, anicteric sclera Mouth: No lip lesion, mucus membranes moist Cardiovascular: S1S2 reg, no murmur Lungs: CTA bilateral, no rhonchi, no rales, no accessory muscle use Abdominal: Soft, nontender to palpation, no guarding, no appreciable organomegaly Ext: No gross muscle atrophy, no contractures Neuro: CN II-XI grossly intact, no focal neuro deficits Psych: Alert, oriented, appropriate affect Data Reviewed Today: Pertinent Labs: WBC 23, hemoglobin 16.2, platelet 323, sodium 131, bicarb 19, anion gap 3, creatinine 0.69, magnesium 2.2. Imaging: No new imaging Assessment and Plan: Fulminant C. difficile Infection Pseudomonas aeruginosa UTI, associated with chronic Garcia catheter use History of BPH Acute kidney injury, resolved Sepsis upon arrival, secondary to above Severe leukocytosis Hyponatremia, was initially secondary to fluid depletion, now likely hypovolemic Generalized anasarca Generalized weakness, likely secondary to above -Continue IV Flagyl 500 mg every 8 hours, oral vancomycin 500 4 times daily -IV cefepime 2 g every 8 hours for UTI. -Infectious disease following, managing antibiotic regimen. -Continue Garcia catheter management and fecal management system with strict I's and O's. -Discontinue IV fluids, give 1 dose of 40 IV Lasix, monitor electrolytes and renal function -Continue cholestyramine 4 g twice daily. -Continue doxazosin 8 mg nightly for BPH with chronic urinary output obstruction. -PT/OT following secondary to generalized weakness recommending inpatient rehab vs SNF upon discharge -General surgery note reviewed, no no interventions planned -[employer] note reviewed, continue current management Chronic systolic heart failure with previously known EF of 40 to 45% now improved to 55% History of hypertension Hypotension resolved -Consider restarting Aldactone -Continue losartan 25 daily -Continue aspirin 325 mg daily. -Given 1 dose of IV Lasix 40 Elevated light chains Low QRS voltage on EKG -Urine kappa light 6.17 and urine free lambda light 0.68. Free kappa LC quant was 2.06. -Hematology evaluated, recommend follow-up in their clinic in 3 months to repeat paraproteinemia labs Obstructive sleep apnea -Continue CPAP nightly and while napping. Morbid obesity, class III with BMI 52.8 kg/m -Recommend outpatient structured weight management program. Hypokalemia. Resolved. Narcolepsy? -Continue home modafinil 300 mg daily DVT ppx: Subcu heparin Code status: Full code Anticipated discharge place: Pending clinical course Anticipated discharge time: Pending clinical course Objective - Vital Signs Vital signs: Vital Signs Temp 97.4 F L 11/07/23 08:19 Pulse 89 11/07/23 08:19 Resp 20 11/07/23 08:19 BP 111/75 11/07/23 08:19 Pulse Ox 96 11/07/23 08:19 FiO2 Intake & Output 11/06/23 11/07/23 11/07/23 18:59 06:59 18:59 Output Total 600 1500 Balance -600 -1500 Output: Urine 600 500 Urine/Stool Mix 1000 Other: Voiding Method Indwelling Catheter Indwelling Catheter Indwelling Catheter ABP, PAP, CO, CI - Last Documented Arterial Blood Pressure 73/52 - Labs CBC & Chem 7: 11/07/23 08:46 11/07/23 08:46 Labs: Abnormal Lab Results - Last 24 Hours (Table) 11/07/23 11/07/23 Range/Units 08:46 08:46 WBC 23.0 H (3.8-10.6) k/uL MCV 101.6 H (80.0-100.0) fL Neutrophils # (Manual) 20.40 H (1.3-7.7) k/uL Metamyelocytes # (Man) 0.23 H (0) k/uL Sodium 131 L (137-145) mmol/L Chloride 109 H (98-107) mmol/L Carbon Dioxide 19 L (22-30) mmol/L BUN 27 H (9-20) mg/dL Glucose 151 H (74-99) mg/dL Calcium 8.2 L (8.4-10.2) mg/dL Total Protein 4.3 L (6.3-8.2) g/dL Albumin 2.1 L (3.5-5.0) g/dL
[2023-11-07] MEDS: FUROSEMIDE 10 MG/ML 4 ML VIAL IV STA (14:55)
[2023-11-07] MEDS: metroNIDAZOLE-NS PMX 500 MG in SALINE 1 100ML.BAG IVPB SCH (20:06)
[2023-11-07] MEDS: DOXAZOSIN 4 MG TAB PO SCH (20:57)
[2023-11-07] MEDS: CEFEPIME 2 GM in SODIUM CHLORIDE 0.9% 100 ML IVPB SCH (21:49)
[2023-11-08 05:29] LABS: Basophils # (A) 0.1 k/uL (0-0.2); Basophils % (A) 1 %; Eosinophils # (A) 0.1 k/uL (0-0.7); Eosinophils % (A) 1 %; HCT 42.3 % (39.0-53.0); HGB 13.4 gm/dL (13.0-17.5); Lymphocytes # (A) 1.1 k/uL (1.0-4.8); Lymphocytes % (A) 8 %; MCH 31.9 pg (25.0-35.0); MCHC 31.6 g/dL (31.0-37.0); Macrocytosis Slight; Mean Platelet Volume 7.5; Monocytes # (A) 0.8 k/uL (0-1.0); Monocytes % (A) 5 %; Neutrophils # (A) 11.9 k/uL (1.3-7.7); Neutrophils % (A) 83 %; Platelet Count 271 k/uL (150-450); RBC 4.19 m/uL (4.30-5.90); RDW 14.7 % (11.5-15.5); WBC 14.3 k/uL (3.8-10.6)
[2023-11-08 05:52] LABS: African American GFR (CKD) >90 (>60 ml/min/1.73 sqM); Anion Gap 2 mmol/L; Blood Urea Nitrogen 30 mg/dL (9-20); Calcium 7.7 mg/dL (8.4-10.2); Carbon Dioxide 17 mmol/L (22-30); Chloride 110 mmol/L (98-107); Glucose 136 mg/dL (74-99); Magnesium 2.1 mg/dL (1.6-2.3); Non-African American GFR(CKD) 87 (>60 ml/min/1.73 sqM); Potassium 4.2 mmol/L (3.5-5.1); Sodium 129 mmol/L (137-145)
--- NOTE | 2023-11-08 07:53 | P.PN ---
Subjective Progress Note Date: 11/08/23 Principal diagnosis: Diarrhea. This is a 77-year-old white male with history of hypertension, obesity, chronic urinary retention, chronic systolic congestive heart failure with ejection fraction of 40 to 45%, patient was admitted to the hospital on 10/26/2023, his chief complaint was mostly a complaint of generalized weakness. Patient has been noticing more difficulty ambulating due to profound weakness in his lower extremities over quite some time. Patient got to the point where he could not help himself with transfers. Brought into the ER, and the patient was found to have a urinary tract infection and he was treated with antibiotics/cephalosporins. Since then, the patient was seen by many consultants including infectious disease, urology, and now the patient is being seen by general surgery. He was also seen by oncology. Infectious disease felt that the patient presented with sepsis secondary to urinary tract infection and his urine cultures came back positive for Pseudomonas aeruginosa. Apparently the patient went on to develop C. difficile colitis, and he developed severe diarrhea. Patient was treated with oral vancomycin, but went on to develop wors ening abdominal discomfort and diarrhea in spite of oral vancomycin, CT of the abdomen and pelvis done yesterday showed evidence of pancolitis with colonic distention up to 7.5 cm there was no evidence of free air. There was also evidence of 1 cm stone at the right UPJ junction. And the patient was felt to have possibly early obstructive uropathy. There was also another 1.4 cm nonobstructive right renal stone. Patient was seen by urology, and he underwent cystoscopy and right ureteral stent insertion. Today the patient was seen by general surgery on consultation, and became quite concerned about his colonic distention as the patient may be developing a toxic megacolon. Hence recommende d transfer to the ICU. I did evaluate the patient on the floor, he is on room air, comfortable, blood pressure is soft, patient is not in any distress but he does seem to be a bit lethargic, and profoundly weak. Hence recommended that we monitor the patient in the ICU and I transferred the patient after my evaluation. Labs today showed significant leukocytosis/leukemoid reaction with WBC count of 65.5, hemoglobin 13.7. Sodium is a bit low at 127 BUN is 52 creatinine 1.35, bicarb is 18 anion gap is normal. Lactic acid yesterday was 1.8. Patient was reevaluated today on 11/01/2023, patient remains in the ICU, he made a significant clinical improvement over the last 24 hours. Blood pressure remained stable patient denies any nausea vomiting abdominal pain, his clinical abdominal findings seem to be benign today. Patient remains on IV fluid at 100 cc/h in the form of 0.9 normal saline, he has a fecal system in place and has no evidence of bleeding, stools are loose, no GI bleeding, and no black or tarry stools. Continues to have leukocytosis/leukemoid reaction with WBC count of 6 5.9 hemoglobin 15.8 sodium is better today up to 129 bicarb remains a bit low at 16 BUN is 53 creatinine 1.04, improved compared to yesterday creatinine of 1.35. Patient did receive the fluid boluses yesterday for slightly elevated lactic acid. And clearly the patient does not need surgical intervention at this point. Lactic acid yesterday was 1.2 went down from 1.8. Flatplate of the abdomen yesterday showed nonspecific bowel gas pattern without radiographic evidence of acute process. The patient is seen today November 02, 2023 in follow-up in the intensive care unit. He is currently awake and alert in no acute distress. He is maintaining good O2 saturations in the 90s on room air. He has normal staying at 100 MLS per hour. He remains on oral vancomycin, cefepime, Flagyl, Dificid for his C. difficile colitis and urinary tract infection. He did undergo ureteral stenting on 10/30/2023. Urine culture was positive for Pseudomonas aeruginosa. Blood cultures revealing no growth. White count 53.3. Hemoglobin 13.3. Platelets 289. Sodium 129. Potassium 3.8. Bicarb 17. BUN 51. Creatinine 0.99. Glucose 116. He is afebrile. Hemodynamically stable. Progress note dated November 03, 2023. The patient is seen today in room 369. Yesterday, he was in the intensive care unit. Currently, he is on room air. He is getting saline at 50 cc an hour. They discovered Pseudomonas in his urine, and he did test positive for C. difficile. He is now on a clear liquid diet. A fecal management system is in place. The patient is still having some abdominal discomfort. Clinically, he looks much more stable. Current labs include a sodium 128, potassium 4.1, chlorides 109, CO2 14, BUN 47, and creatinine 0.90. Glucose is 142. Calcium 7.5, magnesium 2.2. The urine was positive for Pseudomonas on October 25. , The patient is on cefepime, Questran, Dificid, Flagyl, vancomycin orally, etc. Progress note dated November 04, 2023. The patient is seen today in room 369. He continues on room air. He is getting saline at 50 cc an hour. His white blood count yesterday was 38.6, which is down. His diet has been advanced. He continues on Maxipime, Dificid, oral vancomycin, and rectal vancomycin. No new laboratory data today. The patient is seen today November 05, 2023 in follow-up on the regular medical floor. Is awake and alert in no acute distress. Resting in bed. He denies any worsening shortness of breath, cough or congestion. Maintaining O2 saturations in the 90s on room air. He is afebrile. Hemodynamically stable. Urine culture was positive for Pseudomonas aeruginosa. Blood cultures revealed no growth. White count 38.9. Hemoglobin 14.5. Platelets 318. Sodium 131. Potassium 4.5. Bicarb 15. BUN 31. Creatinine 0.8. Glucose 136. He is continued on cefepime, Flagyl, Zosyn and Dificid. Heparin for DVT prophylaxis. The patient is seen today November 06, 2023 in follow-up on the regular medical floor. He is resting comfortably in bed. Awake and alert in no acute distress. He is receiving normal saline at KVO. He is continued on cefepime, Dificid, Flagyl and vancomycin. He did have Pseudomonas in the urine. No new labs today. Recent white count was 30.9. Heparin for DVT prophylaxis. The patient is seen today November 07, 2023 in follow-up on the regular medical floor. He is awake and alert in no acute distress. Resting quite comfortably in bed. He continues to maintain good O2 saturations in the 90s on room air. No IV fluids. He remains on cefepime, Flagyl, vancomycin. Heparin for DVT prophylaxis. Follow-up blood cultures revealed no growth. Urine culture was positive for Pseudomonas aeruginosa. White count 23.0. Hemoglobin 16.2. Platelets 323. Sodium 131. Potassium 4.7. Bicarb 19. BUN 27. Creatinine 0.69. Progress note dated November 08, 2023. The patient was seen again in room 456. He remains on room air. He is not receiving any IV fluids. He continues on vancomycin, Flagyl, and cefepime. Pseudomonas was discovered in the patient's urine. From a GI standpoint, the patient is doing much better. From the respiratory standpoint, he denies any shortness of breath, cough, wheezing, chest tightness, or phlegm production. Cu rrent labs are good white count 14.3, hemoglobin 13.4, hematocrit 42.3, and a platelet count of 271,000. Sodium 129, potassium 4.2, chlorides 110, CO2 17, BUN 30, creatinine 0.81. Glucose is 136. Calcium 7.7, and magnesium 2.1. Objective - Vital Signs Vital signs: Vital Signs Temp 98.4 F 11/08/23 07:19 Pulse 85 11/08/23 07:19 Resp 17 11/08/23 07:19 BP 104/66 11/08/23 07:19 Pulse Ox 96 11/08/23 07:19 FiO2 Intake & Output 11/07/23 11/08/23 11/08/23 18:59 06:59 18:59 Intake Total 520 Output Total 1250 850 Balance -1250 -330 Intake: IV 200 metroNIDAZOLE-NS PMX 500 200 mg In Saline 1 100ml.bag @ 100 mls/hr IVPB Q8H [facility] Rx#:[id number] Intake, IV Titration 320 Amount Cefepime 2 gm In Sodium 200 Chloride 0.9% 100 ml @ 25 mls/hr IVPB Q8H [facility] Rx#: [id number] Sodium Chloride 0.9% 1, 120 000 ml @ 50 mls/hr IV . Q20H [facility] Rx#:[id number] Output: Urine 1250 850 Other: Voiding Method Indwelling Catheter Indwelling Catheter # Bowel Movements 3 ABP, PAP, CO, CI - Last Documented Arterial Blood Pressure 73/52 - Exam No acute distress, oriented 3. No respiratory distress. Currently on room air. HEENT examination is grossly unremarkable. Mucous membranes are moist. No oral lesions. Neck supple. Full range of motion. No adenopathy thyromegaly or neck vein distention. Cardiovascular examination reveals regular rhythm rate. S1-S2 normal. No S3 or S4. No discernible murmur noted. Heart sounds are distant. Heart rate 85 bpm. Lungs reveal clear breath sounds. Breath sounds are equal bilaterally. No a dventitious lung sounds including wheezes rhonchi or crackles. Room air saturation is 96 %. Abdomen soft with bowel sounds. No masses or tenderness noted. Extremities are intact. No cyanosis clubbing or edema. Skin is without rash or lesion. Neurologic examination is brief but nonfocal. - Labs CBC & Chem 7: 11/08/23 05:15 11/08/23 05:15 Labs: Abnormal Lab Results - Last 24 Hours (Table) 11/07/23 11/07/23 11/08/23 Range/Units 08:46 08:46 05:15 WBC 23.0 H 14.3 H (3.8-10.6) k/uL RBC 4.19 L (4.30-5.90) m/uL MCV 101.6 H 101.0 H (80.0-100.0) fL Neutrophils # 11.9 H (1.3-7.7) k/uL Neutrophils # (Manual) 20.40 H (1.3-7.7) k/uL Metamyelocytes # (Man) 0.23 H (0) k/uL Sodium 131 L (137-145) mmol/L Chloride 109 H (98-107) mmol/L Carbon Dioxide 19 L (22-30) mmol/L BUN 27 H (9-20) mg/dL Glucose 151 H (74-99) mg/dL Calcium 8.2 L (8.4-10.2) mg/dL Total Protein 4.3 L (6.3-8.2) g/dL Albumin 2.1 L (3.5-5.0) g/dL 11/08/23 Range/Units 05:15 WBC (3.8-10.6) k/uL RBC (4.30-5.90) m/uL MCV (80.0-100.0) fL Neutrophils # (1.3-7.7) k/uL Neutrophils # (Manual) (1.3-7.7) k/uL Metamyelocytes # (Man) (0) k/uL Sodium 129 L (137-145) mmol/L Chloride 110 H (98-107) mmol/L Carbon Dioxide 17 L (22-30) mmol/L BUN 30 H (9-20) mg/dL Glucose 136 H (74-99) mg/dL Calcium 7.7 L (8.4-10.2) mg/dL Total Protein (6.3-8.2) g/dL Albumin (3.5-5.0) g/dL Assessment and Plan Assessment: Acute sepsis secondary to C. difficile colitis and pseudomonal urinary tract infection. Interval placement of a right ureteral stent. Hypovolemic hyponatremia secondary to diarrhea. History of congestive heart failure with preserved ejection fraction. Obstructive uropathy and hydronephrosis requiring cystoscopy and right ureteral stent insertion on 10/30/23. Morbid obesity. History of obstructive sleep apnea. Generalized weakness, multifactorial. Plan: Plan dated November 03, 2023. The patient continues on appropriate antibiotics for his Pseudomonas urinary tract infection, as well as medications for his C. difficile colitis. The patient has a fecal management system in place. The patient is complaining of diffuse abdominal discomfort from time to time. Clinically, he looks better though. Labs, x-rays, and medications are reviewed. The patient is not receiving any supplemental oxygen. He is receiving saline at 50 cc an hour. He has been allowed to resume a clear liquid diet. No additional recommendations are made. We will continue to follow. Prognosis is guarded. Plan dated November 04, 2023. The patient appears to be doing better each day. His diet is being advanced. He is not having as much in the way of abdominal issues or complaints. The patient currently is on room air. He is getting saline at 50 cc an hour. Yesterday's white blood count was down to 38.6 thousand. He continues on Maxipime, Dificid, rectal vancomycin, and oral vancomycin. We will continue to follow make recommendations along the way. Prognosis is guarded. Labs, x-rays, and all medications have been reviewed. Plan dated November 08, 2023. The patient is currently on room air. His respiratory status is very stable. In addition, his hemodynamic status is stable. He continues on appropriate medications including vancomycin, Flagyl, and cefepime. His antibiotics are being directed by the infectious disease specialist. Labs, x-rays, and medications are reviewed. We will continue to follow patient, and make recommendations along the way. The patient is expected to be discharged to subacute rehab unit. Time with Patient: Less than 30
--- NOTE | 2023-11-08 11:34 | P.PN ---
Subjective Progress Note Date: 11/08/23 Principal diagnosis: Colitis Patient seems to be doing fairly well. Denies abdominal pain. White blood cell count is 14. He is afebrile. Tolerating regular diet. Objective - Vital Signs Vital signs: Vital Signs Temp 98.4 F 11/08/23 07:19 Pulse 85 11/08/23 07:45 Resp 17 11/08/23 07:45 BP 104/66 11/08/23 07:19 Pulse Ox 96 11/08/23 07:19 FiO2 Intake & Output 11/07/23 11/08/23 11/08/23 18:59 06:59 18:59 Intake Total 520 Output Total 1250 850 200 Balance -1250 -330 -200 Intake: IV 200 metroNIDAZOLE-NS PMX 500 200 mg In Saline 1 100ml.bag @ 100 mls/hr IVPB Q8H [facility] Rx#:[id number] Intake, IV Titration 320 Amount Cefepime 2 gm In Sodium 200 Chloride 0.9% 100 ml @ 25 mls/hr IVPB Q8H [facility] Rx#: [id number] Sodium Chloride 0.9% 1, 120 000 ml @ 50 mls/hr IV . Q20H [facility] Rx#:[id number] Output: Urine 1250 850 Stool 200 Other: Voiding Method Indwelling Catheter Indwelling Catheter Indwelling Catheter # Bowel Movements 3 1 ABP, PAP, CO, CI - Last Documented Arterial Blood Pressure 73/52 - Exam Abdomen: Soft, obese, nontender - Labs CBC & Chem 7: 11/08/23 05:15 11/08/23 05:15 Labs: Abnormal Lab Results - Last 24 Hours (Table) 11/08/23 11/08/23 Range/Units 05:15 05:15 WBC 14.3 H (3.8-10.6) k/uL RBC 4.19 L (4.30-5.90) m/uL MCV 101.0 H (80.0-100.0) fL Neutrophils # 11.9 H (1.3-7.7) k/uL Sodium 129 L (137-145) mmol/L Chloride 110 H (98-107) mmol/L Carbon Dioxide 17 L (22-30) mmol/L BUN 30 H (9-20) mg/dL Glucose 136 H (74-99) mg/dL Calcium 7.7 L (8.4-10.2) mg/dL Assessment and Plan (1) C. difficile colitis Narrative/Plan: 77-year-old male with C. difficile colitis. Continue antibiotics. Continue regular diet. Increase activity as tolerated. Current Visit: Yes Status: Acute Priority: Medium Code(s): A04.72 - ENTEROCOLITIS D/T CLOSTRIDIUM DIFFICILE, NOT SPCF RECUR SNOMED Code(s): 688368695
--- NOTE | 2023-11-08 13:42 | P.PN ---
Subjective Progress Note Date: 11/08/23 Hospital Course: Patient is a pleasant 77-year-old male with a past medical history of congestive systolic heart failure with previously known EF of 40 to 45%, hypertension, GERD, obstructive sleep apnea, BPH requiring frequent straight catheterizations and at times Garcia catheter, chronic back pain with bilateral lower extremity neuropathies and restless legs, macular degeneration, and bilateral cataract removal with lens implants. He presented to the emergency department on 10/26/2023 with a chief complaint of generalized weakness. Upon arrival to our facility patient underwent evaluation. Vital signs in the emergency department show blood pressure 143/74, heart rate 86, respiratory rate 18, temp 99.6, and SpO2 of 95% on room air, shortly after arrival temp elevated as high as 101.3 F. EKG completed showing sinus mechanism at 86 bpm. Chest x-ray completed showing mild cardiomegaly with overall hazy densities related to overlying soft tissue/body habitus. CBC showing leukocytosis with WBC count of 14.4 and macrocytosis with MCV of 100.2. BMP showing hyponatremia with sodium of 134 otherwise normal findings. Lactic acid was 1.3. Magnesium 1.8. Liver profile unremarkable. Urinalysis contaminated specimen but appears positive for infection, urine kappa light 6.17 and urine free lambda light 0.68. Free kappa LC quant was 2.06. Influenza A, influenza B, RSV, and COVID were negative. Patient was started on IV antibiotics with Rocephin admitted under our services for acute cystitis and generalized weakness. Echocardiogram was completed showing preserved EF of 55% and mildly increased left ventricular wall thickness. Urine culture positive for Pseudomonas aeruginosa. Blood culture showing no growth to date. C. difficile positive. Started on oral vancomycin in addition to his cefepime for treatment of Pseudomonas UTI. Patient's condition worsened and WBC count significantly increasing concerning for fulminant C. difficile. Patient was started on IV Flagyl in addition to oral vancomycin and a CT abdomen and pelvis was completed. CT abdomen and pelvis revealed severe pancolitis with colonic distention up to 7.5 cm with no pneumatosis or free air noted at this time. Consult was placed to general surgery infectious disease. Patient was started on vancomycin enemas and fidaxomicin in addition to oral vancomycin and IV Flagyl. He was evaluated by general surgery team who stated that taking patient to the OR could result in significant morbidity and/or mortality and recommending continuation of appropriate antibiotics and resuscitation measures at this time. 10/31/2023 patient was transferred to the ICU and an arterial line was placed for close monitoring of hemodynamic status. Patient's condition improving and he was transferred back to stepdown unit on 11/02/2023. Garcia catheter still in place. Fecal management system discontinued. Subjective: Patient seen and examined at bedside. No acute events overnight. Still having bowel movements. Urine catheter in place. Pertinent positives and negatives as discussed above, a complete review of systems was performed and all other systems are negative. Vitals Signs Reviewed. General: Nontoxic, no distress, appears at stated age, morbidly obese, generalized anasarca Derm: Warm, dry Head: Atraumatic, normocephalic, symmetric Eyes: EOMI, no lid lag, anicteric sclera Mouth: No lip lesion, mucus membranes moist Cardiovascular: S1S2 reg, no murmur Lungs: CTA bilateral, no rhonchi, no rales, no accessory muscle use Abdominal: Soft, nontender to palpation, no guarding, no appreciable organomegaly Ext: No gross muscle atrophy, no contractures Neuro: CN II-XI grossly intact, no focal neuro deficits Psych: Alert, oriented, appropriate affect Data Reviewed Today: Pertinent Labs: WBC 14.3, hemoglobin 13.4, sodium 129, bicarb 17, creatinine 0.81, magnesium 2.1 2.2. Imaging: No new imaging Assessment and Plan: Fulminant C. difficile Infection Pseudomonas aeruginosa UTI, associated with chronic Garcia catheter use History of BPH Acute kidney injury, resolved Sepsis upon arrival, secondary to above, resolving Severe leukocytosis Hyponatremia, was initially secondary to fluid depletion, now likely hypervolemic Generalized anasarca likely improved Generalized weakness, likely secondary to above -Continue IV Flagyl 500 mg every 8 hours, oral vancomycin 500 4 times daily -IV cefepime 2 g every 8 hours for UTI. -Infectious disease following, managing antibiotic regimen. -He was given 1 dose of IV Lasix yesterday, did have a drop in his sodium, continue to monitor anasarca slightly improved, needs increased in his protein intake -Continue cholestyramine 4 g twice daily., Currently on oral supplements -Continue doxazosin 8 mg nightly for BPH with chronic urinary output obstruction. -PT/OT following secondary to generalized weakness recommending inpatient rehab vs SNF upon discharge -General surgery note reviewed, continue current therapy -Yield Engineer note reviewed, continue current management Chronic systolic heart failure with previously known EF of 40 to 45% now improved to 55%, not in exacerbation Generalized anasarca History of hypertension Hypotension resolved -Consider restarting Aldactone -Continue losartan 25 daily -Continue aspirin 325 mg daily. Elevated light chains Low QRS voltage on EKG -Urine kappa light 6.17 and urine free lambda light 0.68. Free kappa LC quant was 2.06. -Hematology evaluated, recommend follow-up in their clinic in 3 months to repeat paraproteinemia labs Obstructive sleep apnea -Continue CPAP nightly and while napping. Morbid obesity, class III with BMI 52.8 kg/m -Recommend outpatient structured weight management program. Hypokalemia. Resolved. Narcolepsy? -Continue home modafinil 300 mg daily DVT ppx: Subcu heparin Code status: Full code Anticipated discharge place: Pending clinical course Anticipated discharge time: Pending clinical course Objective - Vital Signs Vital signs: Vital Signs Temp 98.4 F 11/08/23 07:19 Pulse 85 11/08/23 07:45 Resp 17 11/08/23 07:45 BP 104/66 11/08/23 07:19 Pulse Ox 96 11/08/23 07:19 FiO2 Intake & Output 11/07/23 11/08/23 11/08/23 18:59 06:59 18:59 Intake Total 520 Output Total 1250 850 200 Balance -1250 -330 -200 Intake: IV 200 metroNIDAZOLE-NS PMX 500 200 mg In Saline 1 100ml.bag @ 100 mls/hr IVPB Q8H [facility] Rx#:[id number] Intake, IV Titration 320 Amount Cefepime 2 gm In Sodium 200 Chloride 0.9% 100 ml @ 25 mls/hr IVPB Q8H [facility] Rx#: [id number] Sodium Chloride 0.9% 1, 120 000 ml @ 50 mls/hr IV . Q20H [facility] Rx#:[id number] Output: Urine 1250 850 Stool 200 Other: Voiding Method Indwelling Catheter Indwelling Catheter Indwelling Catheter # Bowel Movements 3 1 ABP, PAP, CO, CI - Last Documented Arterial Blood Pressure 73/52 - Labs CBC & Chem 7: 11/08/23 05:15 11/08/23 05:15 Labs: Abnormal Lab Results - Last 24 Hours (Table) 11/08/23 11/08/23 Range/Units 05:15 05:15 WBC 14.3 H (3.8-10.6) k/uL RBC 4.19 L (4.30-5.90) m/uL MCV 101.0 H (80.0-100.0) fL Neutrophils # 11.9 H (1.3-7.7) k/uL Sodium 129 L (137-145) mmol/L Chloride 110 H (98-107) mmol/L Carbon Dioxide 17 L (22-30) mmol/L BUN 30 H (9-20) mg/dL Glucose 136 H (74-99) mg/dL Calcium 7.7 L (8.4-10.2) mg/dL
--- NOTE | 2023-11-08 16:13 | P.PN ---
Subjective Progress Note Date: 11/07/23 Principal diagnosis: Reason for follow-up is C. difficile colitis UTI and leukocytosis Patient is a 77-year-old male with a past medical history significant for hypertension osteoarthritis sleep apnea reflux patient did have a BPH and self catheterize himself because of urine retention, presented to hospital after a fall with weakness he did have a positive UA and has been treated for a UTI also has significant diarrhea stool for C. difficile came back positive pro mpting this consultation. On today's evaluation that is 11/07/2023, patient has been afebrile, patient is breathing comfortably and is currently on room air, patient denies having any significant cough no chest pain shortness of breath, patient denies nausea vomiting, denies any abdominal pain still have the fecal management system no worsening output reported by nursing staff Patient white count is down to 23,000, creatinine 0.69 Objective - Vital Signs Vital signs: Vital Signs Temp 97.6 F 11/07/23 14:07 Pulse 85 11/07/23 14:07 Resp 19 11/07/23 14:07 BP 104/65 11/07/23 14:07 Pulse Ox 97 11/07/23 14:07 FiO2 Intake & Output 11/06/23 11/07/23 11/07/23 18:59 06:59 18:59 Output Total 600 1500 300 Balance -600 -1500 -300 Output: Urine 600 500 300 Urine/Stool Mix 1000 Other: Voiding Method Indwelling Catheter Indwelling Catheter Indwelling Catheter ABP, PAP, CO, CI - Last Documented Arterial Blood Pressure 73/52 - Exam GENERAL DESCRIPTION: An elderly male lying in bed in no distress RESPIRATORY SYSTEM: Unlabored breathing , decreased breath sounds at bases HEART: S1 S2 regular rate and rhythm , ABDOMEN: Soft , mild distention and tenderness EXTREMITIES: No edema feet - Labs CBC & Chem 7: 11/08/23 05:15 11/08/23 05:15 Labs: Abnormal Lab Results - Last 24 Hours (Table) 11/07/23 11/07/23 Range/Units 08:46 08:46 WBC 23.0 H (3.8-10.6) k/uL MCV 101.6 H (80.0-100.0) fL Neutrophils # (Manual) 20.40 H (1.3-7.7) k/uL Metamyelocytes # (Man) 0.23 H (0) k/uL Sodium 131 L (137-145) mmol/L Chloride 109 H (98-107) mmol/L Carbon Dioxide 19 L (22-30) mmol/L BUN 27 H (9-20) mg/dL Glucose 151 H (74-99) mg/dL Calcium 8.2 L (8.4-10.2) mg/dL Total Protein 4.3 L (6.3-8.2) g/dL Albumin 2.1 L (3.5-5.0) g/dL Assessment and Plan (1) C. difficile colitis Current Visit: Yes Status: Acute Priority: Medium Code(s): A04.72 - ENTEROCOLITIS D/T CLOSTRIDIUM DIFFICILE, NOT SPCF RECUR SNOMED Code(s): 935639824 (2) Leukocytosis Current Visit: Yes Status: Acute Priority: Medium Code(s): D72.829 - ELEVATED WHITE BLOOD CELL COUNT, UNSPECIFIED SNOMED Code(s): 753308089 (3) Urinary tract infection Current Visit: Yes Status: Acute Priority: Medium Code(s): N39.0 - URINARY TRACT INFECTION, SITE NOT SPECIFIED SNOMED Code(s): 35012989 Plan: 1patient with a complicated history and this patient initially presented to the hospital with sepsis as the patient did have a fever elevated white count source likely UTI with urine culture finalized with Pseudomonas aeruginosa, patient did have a CT abdominal pelvis CT shows evidence of hydronephrosis and ureteral stone in this patient who is status post cystoscopy and ureteral stent placement patient is currently covered with the cefepime concerning for pietro lonephritis/complicated UTI which will be continued for short course 2patient did have severe C. difficile colitis patient is slowly clinical improvement patient white count down to 23K 3-patient to continue with the vancomycin and Flagyl and monitor clinical course closely Dictation was produced using [employer] dictation software. please excuse any grammatical, word or spelling errors. Time with Patient: Less than 30
--- NOTE | 2023-11-08 16:15 | P.PN ---
Subjective Progress Note Date: 11/08/23 Principal diagnosis: Reason for follow-up is C. difficile colitis UTI and leukocytosis Patient is a 77-year-old male with a past medical history significant for hypertension osteoarthritis sleep apnea reflux patient did have a BPH and self catheterize himself because of urine retention, presented to hospital after a fall with weakness he did have a positive UA and has been treated for a UTI also has significant diarrhea stool for C. difficile came back positive pro mpting this consultation. On today's evaluation that is 11/08/2023,the patient denies any fever or any chills, patient is breathing comfortably on room air, the patient denies chest pain shortness of breath and no significant cough, patient denies abdominal pain, no nausea vomiting, fecal management system has been discontinued and diarrhea has improved. Patient white count is down to 14.3, creatinine 0.81 blood culture negative Objective - Vital Signs Vital signs: Vital Signs Temp 98.4 F 11/08/23 07:19 Pulse 85 11/08/23 07:45 Resp 17 11/08/23 07:45 BP 104/66 11/08/23 07:19 Pulse Ox 96 11/08/23 07:19 FiO2 Intake & Output 11/07/23 11/08/23 11/08/23 18:59 06:59 18:59 Intake Total 520 Output Total 1250 850 200 Balance -1250 -330 -200 Intake: IV 200 metroNIDAZOLE-NS PMX 500 200 mg In Saline 1 100ml.bag @ 100 mls/hr IVPB Q8H EDWIN Rx#:[id number] Intake, IV Titration 320 Amount Cefepime 2 gm In Sodium 200 Chloride 0.9% 100 ml @ 25 mls/hr IVPB Q8H EDWIN Rx#: [id number] Sodium Chloride 0.9% 1, 120 000 ml @ 50 mls/hr IV . Q20H EDWIN Rx#:[id number] Output: Urine 1250 850 Stool 200 Other: Voiding Method Indwelling Catheter Indwelling Catheter Indwelling Catheter # Bowel Movements 3 1 ABP, PAP, CO, CI - Last Documented Arterial Blood Pressure 73/52 - Exam GENERAL DESCRIPTION: An elderly male lying in bed in no distress RESPIRATORY SYSTEM: Unlabored breathing , decreased breath sounds at bases HEART: S1 S2 regular rate and rhythm , ABDOMEN: Soft , mild distention and tenderness EXTREMITIES: No edema feet - Labs CBC & Chem 7: 11/08/23 05:15 11/08/23 05:15 Labs: Abnormal Lab Results - Last 24 Hours (Table) 11/08/23 11/08/23 Range/Units 05:15 05:15 WBC 14.3 H (3.8-10.6) k/uL RBC 4.19 L (4.30-5.90) m/uL MCV 101.0 H (80.0-100.0) fL Neutrophils # 11.9 H (1.3-7.7) k/uL Sodium 129 L (137-145) mmol/L Chloride 110 H (98-107) mmol/L Carbon Dioxide 17 L (22-30) mmol/L BUN 30 H (9-20) mg/dL Glucose 136 H (74-99) mg/dL Calcium 7.7 L (8.4-10.2) mg/dL Assessment and Plan (1) C. difficile colitis Current Visit: Yes Status: Acute Priority: Medium Code(s): A04.72 - ENTEROCOLITIS D/T CLOSTRIDIUM DIFFICILE, NOT SPCF RECUR SNOMED Code(s): 868166941 (2) Leukocytosis Current Visit: Yes Status: Acute Priority: Medium Code(s): D72.829 - ELEVATED WHITE BLOOD CELL COUNT, UNSPECIFIED SNOMED Code(s): 706789619 (3) Urinary tract infection Current Visit: Yes Status: Acute Priority: Medium Code(s): N39.0 - URINARY TRACT INFECTION, SITE NOT SPECIFIED SNOMED Code(s): 43120183 Plan: 1patient with a complicated history and this patient initially presented to the hospital with sepsis as the patient did have a fever elevated white count source likely UTI with urine culture finalized with Pseudomonas aeruginosa, patient did have a CT abdominal pelvis CT shows evidence of hydronephrosis and ureteral stone in this patient who is status post cystoscopy and ureteral stent placement patient is currently covered with the cefepime concerning for pyelonephritis/complicated UTI, for the patient stated 10-day course of cefepime treating over the left we will go ahead and discontinue cefepime 2patient did have severe C. difficile colitis patient has shown clinical improvement the patient white count is down to 13,000 fecal management system has been discontinued we will continue with IV Flagyl and oral vancomycin discontinue Protonix to decrease risk of recurrent C. difficile colitis encou raged to increase his probiotic and yogurt intake Dictation was produced using [employer] dictation software. please excuse any grammatical, word or spelling errors. Time with Patient: Less than 30
[2023-11-09 06:33] LABS: African American GFR (CKD) >90 (>60 ml/min/1.73 sqM); Anion Gap 4 mmol/L; Blood Urea Nitrogen 34 mg/dL (9-20); Carbon Dioxide 14 mmol/L (22-30); Chloride 110 mmol/L (98-107); Glucose 116 mg/dL (74-99); Magnesium 2.2 mg/dL (1.6-2.3); Non-African American GFR(CKD) >90 (>60 ml/min/1.73 sqM); Potassium 5.1 mmol/L (3.5-5.1); Sodium 128 mmol/L (137-145)
[2023-11-09] MEDS: SODIUM BICARBONATE TAB 650 MG TAB PO SCH (10:03)
--- NOTE | 2023-11-09 14:41 | P.PN ---
Subjective Progress Note Date: 11/09/23 CHIEF COMPLAINT: C. difficile colitis HISTORY OF PRESENT ILLNESS: Patient is currently on regular medical floor. Denies any abdominal pain. FMS discontinued over the weekend. Patient still reports diarrhea. Denies any abdominal pain. Denies any nausea or vomiting. Tolerating regular diet.. Last WBC yesterday 14.3 PHYSICAL EXAM: VITAL SIGNS: Reviewed. GENERAL: no acute distress. ABDOMEN: Soft. Obese. Nondistended. Nontender NEUROLOGIC: Alert and oriented. Cranial nerves II through XII grossly intact. ASSESSMENT: 1. Severe C. difficile colitis PLAN: -Continue regular -Continue to monitor -Continue C. difficile treatment -No surgical intervention planned at this time -Patient can be discharged from surgical standpoint when medically cleared -manager project management working on discharging patient to [facility] Physician Ob/Gyn Physician note has been reviewed by physician. Signing provider agrees with the documented findings, assessment, and plan of care. Objective - Vital Signs Vital signs: Vital Signs Temp 97.3 F L 11/09/23 08:00 Pulse 83 11/09/23 08:00 Resp 20 11/09/23 08:00 BP 111/60 11/09/23 08:00 Pulse Ox 97 11/09/23 08:00 FiO2 Intake & Output 11/08/23 11/09/23 11/09/23 18:59 06:59 18:59 Output Total 400 325 Balance -400 -325 Output: Urine 200 325 Stool 200 Other: Voiding Method Indwelling Catheter Indwelling Catheter # Bowel Movements 2 1 ABP, PAP, CO, CI - Last Documented Arterial Blood Pressure 73/52 - Labs CBC & Chem 7: 11/08/23 05:15 11/09/23 05:45 Labs: Abnormal Lab Results - Last 24 Hours (Table) 11/09/23 Range/Units 05:45 Sodium 128 L (137-145) mmol/L Chloride 110 H (98-107) mmol/L Carbon Dioxide 14 L (22-30) mmol/L BUN 34 H (9-20) mg/dL Glucose 116 H (74-99) mg/dL Calcium 8.0 L (8.4-10.2) mg/dL
[2023-11-09 15:35] LABS: Basophils # (A) 0.1 k/uL (0-0.2); Basophils % (A) 1 %; Eosinophils # (A) 0.2 k/uL (0-0.7); Eosinophils % (A) 2 %; Hypochromasia Slight; Lymphocytes % (A) 9 %; MCH 31.9 pg (25.0-35.0); MCHC 30.8 g/dL (31.0-37.0); MCV 103.4 fL (80.0-100.0); Macrocytosis Slight; Mean Platelet Volume 7.3; Monocytes # (A) 0.5 k/uL (0-1.0); Monocytes % (A) 5 %; Neutrophils # (A) 8.6 k/uL (1.3-7.7); Neutrophils % (A) 81 %; Platelet Count 268 k/uL (150-450); RBC 4.06 m/uL (4.30-5.90); RDW 14.7 % (11.5-15.5); WBC 10.6 k/uL (3.8-10.6)
--- NOTE | 2023-11-09 15:53 | P.PN ---
Subjective Progress Note Date: 11/09/23 Hospital Course: Patient is a pleasant 77-year-old male with a past medical history of congestive systolic heart failure with previously known EF of 40 to 45%, hypertension, GERD, obstructive sleep apnea, BPH requiring frequent straight catheterizations and at times Garcia catheter, chronic back pain with bilateral lower extremity neuropathies and restless legs, macular degeneration, and bilateral cataract removal with lens implants. He presented to the emergency department on 10/26/2023 with a chief complaint of generalized weakness. Upon arrival to our facility patient underwent evaluation. Vital signs in the emergency department show blood pressure 143/74, heart rate 86, respiratory rate 18, temp 99.6, and SpO2 of 95% on room air, shortly after arrival temp elevated as high as 101.3 F. EKG completed showing sinus mechanism at 86 bpm. Chest x-ray completed showing mild cardiomegaly with overall hazy densities related to overlying soft tissue/body habitus. CBC showing leukocytosis with WBC count of 14.4 and macrocytosis with MCV of 100.2. BMP showing hyponatremia with sodium of 134 otherwise normal findings. Lactic acid was 1.3. Magnesium 1.8. Liver profile unremarkable. Urinalysis contaminated specimen but appears positive for infection, urine kappa light 6.17 and urine free lambda light 0.68. Free kappa LC quant was 2.06. Influenza A, influenza B, RSV, and COVID were negative. Patient was started on IV antibiotics with Rocephin admitted under our services for acute cystitis and generalized weakness. Echocardiogram was completed showing preserved EF of 55% and mildly increased left ventricular wall thickness. Urine culture positive for Pseudomonas aeruginosa. Blood culture showing no growth to date. C. difficile positive. Started on oral vancomycin in addition to his cefepime for treatment of Pseudomonas UTI. Patient's condition worsened and WBC count significantly increasing concerning for fulminant C. difficile. Patient was started on IV Flagyl in addition to oral vancomycin and a CT abdomen and pelvis was completed. CT abdomen and pelvis revealed severe pancolitis with colonic distention up to 7.5 cm with no pneumatosis or free air noted at this time. Consult was placed to general surgery infectious disease. Patient was started on vancomycin enemas and fidaxomicin in addition to oral vancomycin and IV Flagyl. He was evaluated by general surgery team who stated that taking patient to the OR could result in significant morbidity and/or mortality and recommending continuation of appropriate antibiotics and resuscitation measures at this time. 10/31/2023 patient was transferred to the ICU and an arterial line was placed for close monitoring of hemodynamic status. Patient's condition improving and he was transferred back to stepdown unit on 11/02/2023. Garcia catheter still in place. Fecal management system discontinued. Was pending insurance Auth. Likely discharge tomorrow. Subjective: Patient seen and examined at bedside. No acute events overnight. Still having bowel movements. Urine catheter in place. Pertinent positives and negatives as discussed above, a complete review of systems was performed and all other systems are negative. Vitals Signs Reviewed. General: Nontoxic, no distress, appears at stated age, morbidly obese, generalized anasarca Derm: Warm, dry Head: Atraumatic, normocephalic, symmetric Eyes: EOMI, no lid lag, anicteric sclera Mouth: No lip lesion, mucus membranes moist Cardiovascular: S1S2 reg, no murmur Lungs: CTA bilateral, no rhonchi, no rales, no accessory muscle use Abdominal: Soft, nontender to palpation, no guarding, no appreciable organomegaly Ext: No gross muscle atrophy, no contractures Neuro: CN II-XI grossly intact, no focal neuro deficits Psych: Alert, oriented, appropriate affect Data Reviewed Today: Pertinent Labs: WBC 10.6, hemoglobin 13, sodium 128, bicarb 14, anion gap 4, creatinine 0.7, magnesium 2.2 Imaging: No new imaging Assessment and Plan: Fulminant C. difficile Infection Pseudomonas aeruginosa UTI, associated with chronic Garcia catheter use History of BPH Acute kidney injury, resolved Sepsis upon arrival, secondary to above, resolving Severe leukocytosis resolved Hyponatremia, was initially secondary to fluid depletion, and then hypervolemic, likely euvolemic at this point Non-anion gap metabolic acidosis Generalized anasarca, improved Generalized weakness, likely secondary to above -Continue IV Flagyl 500 mg every 8 hours, oral vancomycin 500 4 times daily -Completed course of IV cefepime -Infectious disease following, managing antibiotic regimen. -needs increased in his protein intake, currently on oral supplements -Continue cholestyramine 4 g twice daily -Continue doxazosin 8 mg nightly for BPH with chronic urinary output obstruction. -PT/OT following secondary to generalized weakness recommending inpatient rehab vs SNF upon discharge -General surgery note reviewed, continue current therapy, may be discharged from their standpoint -[employer] also following -Ordered sodium bicarb 650 3 times daily -Repeat BMP tomorrow Chronic systolic heart failure with previously known EF of 40 to 45% now improved to 55%, not in exacerbation Generalized anasarca History of hypertension Hypotension resolved -Consider restarting Aldactone outpatient -Continue losartan 25 daily -Continue aspirin 325 mg daily. Elevated light chains Low QRS voltage on EKG -Urine kappa light 6.17 and urine free lambda light 0.68. Free kappa LC quant was 2.06. -Hematology evaluated, recommend follow-up in their clinic in 3 months to repeat paraproteinemia labs Obstructive sleep apnea -Continue CPAP nightly and while napping. Morbid obesity, class III with BMI 52.8 kg/m -Recommend outpatient structured weight management program. Hypokalemia. Resolved. Narcolepsy? -Continue home modafinil 300 mg daily DVT ppx: Subcu heparin Code status: Full code Anticipated discharge place: Pending clinical course Anticipated discharge time: Pending clinical course Objective - Vital Signs Vital signs: Vital Signs Temp 97.5 F L 11/09/23 14:00 Pulse 84 11/09/23 14:00 Resp 17 11/09/23 14:00 BP 107/69 11/09/23 14:00 Pulse Ox 95 11/09/23 14:00 FiO2 Intake & Output 11/08/23 11/09/23 11/09/23 18:59 06:59 18:59 Output Total 400 325 Balance -400 -325 Output: Urine 200 325 Stool 200 Other: Voiding Method Indwelling Catheter Indwelling Catheter # Bowel Movements 2 1 ABP, PAP, CO, CI - Last Documented Arterial Blood Pressure 73/52 - Labs CBC & Chem 7: 11/09/23 15:12 11/09/23 05:45 Labs: Abnormal Lab Results - Last 24 Hours (Table) 11/09/23 11/09/23 Range/Units 05:45 15:12 RBC 4.06 L (4.30-5.90) m/uL MCV 103.4 H (80.0-100.0) fL MCHC 30.8 L (31.0-37.0) g/dL Neutrophils # 8.6 H (1.3-7.7) k/uL Sodium 128 L (137-145) mmol/L Chloride 110 H (98-107) mmol/L Carbon Dioxide 14 L (22-30) mmol/L BUN 34 H (9-20) mg/dL Glucose 116 H (74-99) mg/dL Calcium 8.0 L (8.4-10.2) mg/dL
--- NOTE | 2023-11-09 16:24 | P.PN ---
Subjective Progress Note Date: 11/09/23 11/09/2023, the patient is being seen for a follow-up. Morbidly obese 77-year-old male patient with a body mass index of 59.7 was hospitalized for difficulty with mobility, profound weakness and suspected UTI. Subsequently, the patient was found to have Pseudomonas aeruginosa in the urine suspecting an underlying gram-negative infection. The patient has had is well-developed state of colitis and diarrhea. He is currently being treated with oral vancomycin. He is currently at a dose of 5 mg p.o. 4 times daily. He is also on Questran. He is currently afebrile. He is on pulse oxing 95% on room air oxygen. His CAT scan of the abdomen and pelvis that was done on 11/01/2023 showed evidence of bartlett colitis with severe wall thickening along the right side of the colon. There is also worsening generalized anasarca and he was also noted to have a ureteral stent on the right with a right renal stone measuring 1.1 cm in size. Lung bases are essentially clear. Most recent blood work shows a WC count 10.6 hemoglobin 15 and a platelet count of 268. His sodium is at 128 with a BUN of 34 and a creatinine of 0.7 and serum bicarb is down to 14. Is 110. The patient is currently on oral bicarb 650 mg p.o. 3 times daily. He remains on oral vancomycin and IV Flagyl. Objective - Vital Signs Vital signs: Vital Signs Temp 97.3 F L 11/09/23 08:00 Pulse 83 11/09/23 08:00 Resp 20 11/09/23 08:00 BP 111/60 11/09/23 08:00 Pulse Ox 97 11/09/23 08:00 FiO2 Intake & Output 11/08/23 11/09/23 11/09/23 18:59 06:59 18:59 Output Total 400 325 Balance -400 -325 Output: Urine 200 325 Stool 200 Other: Voiding Method Indwelling Catheter Indwelling Catheter # Bowel Movements 2 1 ABP, PAP, CO, CI - Last Documented Arterial Blood Pressure 73/52 - Exam No acute distress, oriented 3. No respiratory distress. Currently on room air. Morbidly obese with a BMI 59.7 HEENT examination is grossly unremarkable. Mucous membranes are moist. No oral lesions. Neck supple. Full range of motion. No adenopathy thyromegaly or neck vein distention. Cardiovascular examination reveals regular rhythm rate. S1-S2 normal. No S3 or S4. No discernible murmur noted. Heart sounds are distant. Lungs reveal clear breath sounds. Breath sounds are equal bilaterally. No adventitious lung sounds including wheezes rhonchi or crackles. Abdomen soft with bowel sounds. No masses or tenderness noted. Extremities are intact. No cyanosis clubbing or edema. Skin is without rash or lesion. Neurologic examination is brief but nonfocal. - Labs CBC & Chem 7: 11/09/23 15:12 11/09/23 05:45 Labs: Abnormal Lab Results - Last 24 Hours (Table) 11/09/23 Range/Units 05:45 Sodium 128 L (137-145) mmol/L Chloride 110 H (98-107) mmol/L Carbon Dioxide 14 L (22-30) mmol/L BUN 34 H (9-20) mg/dL Glucose 116 H (74-99) mg/dL Calcium 8.0 L (8.4-10.2) mg/dL Assessment and Plan Plan: Acute sepsis secondary to C. difficile colitis and evidence of pancolitis, currently on IV Flagyl and oral vancomycin. Diarrhea has subsided Non-anion gap metabolic acidosis currently on bicarb replacement orally Pseudomonal urinary tract infection plan related to chronic indwelling Garcia catheter BPH Renal stone and the patient has a a right ureteral stent. Renal function stable for now Hypovolemic hyponatremia secondary to diarrhea, improved Leukocytosis, improving History of congestive heart failure with preserved ejection fraction. Obstructive uropathy and hydronephrosis requiring cystoscopy and right ureteral stent insertion on 10/30/23. Morbid obesity. History of obstructive sleep apnea. Generalized weakness, multifactorial. Generalized anasarca Hyponatremia Acute kidney injury, resolved Morbid obesity with a BMI of 59.7 Plan: Will continue oral vancomycin and IV Flagyl Monitor the serum bicarb level and the patient is currently on oral bicarb supplements Infectious disease on the case regarding antibiotic management regarding the C. difficile colitis Repeat echocardiogram in a.m. Patient is currently on Aldactone Continue aspirin Continue losartan CPAP overnight Will continue to follow.
--- NOTE | 2023-11-10 08:11 | P.PN ---
Subjective Progress Note Date: 11/09/23 Principal diagnosis: Reason for follow-up is C. difficile colitis UTI and leukocytosis Patient is a 77-year-old male with a past medical history significant for hypertension osteoarthritis sleep apnea reflux patient did have a BPH and self catheterize himself because of urine retention, presented to hospital after a fall with weakness he did have a positive UA and has been treated for a UTI also has significant diarrhea stool for C. difficile came back positive pro mpting this consultation. On today's evaluation that is 11/09/2023,the patient remains to be afebrile, patient is on room air not requiring supplemental oxygen and denies any shortness of breath no chest pain or cough.Patient denies having any nausea or vomiting, no abdominal pain and no worsening diarrhea has been reported. Patient white count normalized to 10.6 creatinine 0.70 Objective - Vital Signs Vital signs: Vital Signs Temp 97.3 F L 11/09/23 08:00 Pulse 83 11/09/23 08:00 Resp 20 11/09/23 08:00 BP 111/60 11/09/23 08:00 Pulse Ox 97 11/09/23 08:00 FiO2 Intake & Output 11/08/23 11/09/23 11/09/23 18:59 06:59 18:59 Output Total 400 325 Balance -400 -325 Output: Urine 200 325 Stool 200 Other: Voiding Method Indwelling Catheter Indwelling Catheter # Bowel Movements 2 1 ABP, PAP, CO, CI - Last Documented Arterial Blood Pressure 73/52 - Exam GENERAL DESCRIPTION: An elderly male lying in bed in no distress RESPIRATORY SYSTEM: Unlabored breathing , decreased breath sounds at bases HEART: S1 S2 regular rate and rhythm , ABDOMEN: Soft , mild distention and tenderness EXTREMITIES: No edema feet - Labs CBC & Chem 7: 11/09/23 15:12 11/09/23 05:45 Labs: Abnormal Lab Results - Last 24 Hours (Table) 11/09/23 Range/Units 05:45 Sodium 128 L (137-145) mmol/L Chloride 110 H (98-107) mmol/L Carbon Dioxide 14 L (22-30) mmol/L BUN 34 H (9-20) mg/dL Glucose 116 H (74-99) mg/dL Calcium 8.0 L (8.4-10.2) mg/dL Assessment and Plan (1) C. difficile colitis Current Visit: Yes Status: Acute Priority: Medium Code(s): A04.72 - ENTEROCOLITIS D/T CLOSTRIDIUM DIFFICILE, NOT SPCF RECUR SNOMED Code(s): 101942129 (2) Leukocytosis Current Visit: Yes Status: Acute Priority: Medium Code(s): D72.829 - ELEVATED WHITE BLOOD CELL COUNT, UNSPECIFIED SNOMED Code(s): 164482880 (3) Urinary tract infection Current Visit: Yes Status: Acute Priority: Medium Code(s): N39.0 - URINARY TRACT INFECTION, SITE NOT SPECIFIED SNOMED Code(s): 14347923 Plan: 1patient with a complicated history and this patient initially presented to the hospital with sepsis as the patient did have a fever elevated white count source likely UTI with urine culture finalized with Pseudomonas aeruginosa, patient did have a CT abdominal pelvis CT shows evidence of hydronephrosis and ureteral stone in this patient who is status post cystoscopy and ureteral stent placement patient is currently covered with the cefepime concerning for pyelonephritis/complicated UTI, for the patient stated 10-day course of cefepime treating over the left we will go ahead and discontinue cefepime 2patient did have severe C. difficile colitis patient has shown clinical improvement the patient white count has normalized, patient to continue with oral vancomycin IV Flagyl can be discontinued and monitor clinical course closely Dictation was produced using [employer] dictation software. please excuse any grammatical, word or spelling errors. Time with Patient: Less than 30
[2023-11-10 09:58] LABS: African American GFR (CKD) >90 (>60 ml/min/1.73 sqM); Anion Gap 3 mmol/L; Blood Urea Nitrogen 33 mg/dL (9-20); Carbon Dioxide 17 mmol/L (22-30); Chloride 107 mmol/L (98-107); Glucose 122 mg/dL (74-99); Non-African American GFR(CKD) >90 (>60 ml/min/1.73 sqM); Potassium 4.5 mmol/L (3.5-5.1); Sodium 127 mmol/L (137-145)
[2023-11-10] MEDS: SODIUM CHLORIDE 0.9% 1,000 ML IV SCH (11:04)
--- NOTE | 2023-11-10 14:19 | P.PN ---
Subjective Progress Note Date: 11/10/23 Hospital Course: Patient is a pleasant 77-year-old male with a past medical history of congestive systolic heart failure with previously known EF of 40 to 45%, hypertension, GERD, obstructive sleep apnea, BPH requiring frequent straight catheterizations and at times Garcia catheter, chronic back pain with bilateral lower extremity neuropathies and restless legs, macular degeneration, and bilateral cataract removal with lens implants. He presented to the emergency department on 10/26/2023 with a chief complaint of generalized weakness. Upon arrival to our facility patient underwent evaluation. Vital signs in the emergency department show blood pressure 143/74, heart rate 86, respiratory rate 18, temp 99.6, and SpO2 of 95% on room air, shortly after arrival temp elevated as high as 101.3 F. EKG completed showing sinus mechanism at 86 bpm. Chest x-ray completed showing mild cardiomegaly with overall hazy densities related to overlying soft tissue/body habitus. CBC showing leukocytosis with WBC count of 14.4 and macrocytosis with MCV of 100.2. BMP showing hyponatremia with sodium of 134 otherwise normal findings. Lactic acid was 1.3. Magnesium 1.8. Liver profile unremarkable. Urinalysis contaminated specimen but appears positive for infection, urine kappa light 6.17 and urine free lambda light 0.68. Free kappa LC quant was 2.06. Influenza A, influenza B, RSV, and COVID were negative. Patient was started on IV antibiotics with Rocephin admitted under our services for acute cystitis and generalized weakness. Echocardiogram was completed showing preserved EF of 55% and mildly increased left ventricular wall thickness. Urine culture positive for Pseudomonas aeruginosa. Blood culture showing no growth to date. C. difficile positive. Started on oral vancomycin in addition to his cefepime for treatment of Pseudomonas UTI. Patient's condition worsened and WBC count significantly increasing concerning for fulminant C. difficile. Patient was started on IV Flagyl in addition to oral vancomycin and a CT abdomen and pelvis was completed. CT abdomen and pelvis revealed severe pancolitis with colonic distention up to 7.5 cm with no pneumatosis or free air noted at this time. Consult was placed to general surgery infectious disease. Patient was started on vancomycin enemas and fidaxomicin in addition to oral vancomycin and IV Flagyl. He was evaluated by general surgery team who stated that taking patient to the OR could result in significant morbidity and/or mortality and recommending continuation of appropriate antibiotics and resuscitation measures at this time. 10/31/2023 patient was transferred to the ICU and an arterial line was placed for close monitoring of hemodynamic status. Patient's condition improving and he was transferred back to stepdown unit on 11/02/2023. Garcia catheter still in place. Fecal management system discontinued. Patient does have insurance Auth. Does seem to be a little bit more dehydrated, still having frequent bowel movements. Started on IV fluids. Subjective: Patient seen and examined at bedside. No acute events overnight. Still having frequent bowel movements. Urine catheter in place. Pertinent positives and negatives as discussed above, a complete review of systems was performed and all other systems are negative. Vitals Signs Reviewed. General: Nontoxic, no distress, appears at stated age, morbidly obese, generalized anasarca Derm: Warm, dry Head: Atraumatic, normocephalic, symmetric Eyes: EOMI, no lid lag, anicteric sclera Mouth: No lip lesion, mucus membranes moist Cardiovascular: S1S2 reg, no murmur Lungs: CTA bilateral, no rhonchi, no rales, no accessory muscle use Abdominal: Soft, nontender to palpation, no guarding, no appreciable organomegaly Ext: No gross muscle atrophy, no contractures Neuro: CN II-XI grossly intact, no focal neuro deficits Psych: Alert, oriented, appropriate affect Data Reviewed Today: Pertinent Labs: Sodium 127, bicarb 17, creatinine 0.66 Imaging: No new imaging Assessment and Plan: Fulminant C. difficile Infection Pseudomonas aeruginosa UTI, associated with chronic Garcia catheter use, status post treatment History of BPH Acute kidney injury, resolved Sepsis upon arrival, secondary to above, resolving Severe leukocytosis resolved Hyponatremia, likely hypovolemic Non-anion gap metabolic acidosis secondary to diarrhea Generalized anasarca, improved Generalized weakness, likely secondary to above -Continue IV Flagyl 500 mg every 8 hours, oral vancomycin 500 4 times daily -Completed course of IV cefepime -Infectious disease following, managing antibiotic regimen. -needs increased in his protein intake, currently on oral supplements -Continue cholestyramine 4 g twice daily -Continue doxazosin 8 mg nightly for BPH with chronic urinary output obstruction. -General surgery signed off -Plater Production also following -On sodium bicarb 650 3 times daily -Still having frequent bowel movements, will continue to monitor inpatient due to increased risk for dehydration, started on normal saline at 130 cc an hour -Repeat BMP tomorrow, if sodium improves and frequency of bowel movement slows down, patient to be discharged to rehab Chronic systolic heart failure with previously known EF of 40 to 45% now improved to 55%, not in exacerbation Generalized anasarca History of hypertension Hypotension resolved -Consider restarting Aldactone outpatient -Continue losartan 25 daily -Continue aspirin 325 mg daily. Elevated light chains Low QRS voltage on EKG -Urine kappa light 6.17 and urine free lambda light 0.68. Free kappa LC quant was 2.06. -Hematology evaluated, recommend follow-up in their clinic in 3 months to repeat paraproteinemia labs Obstructive sleep apnea -Continue CPAP nightly and while napping. Morbid obesity, class III with BMI 52.8 kg/m -Recommend outpatient structured weight management program. Hypokalemia. Resolved. Narcolepsy? -Continue home modafinil 300 mg daily DVT ppx: Subcu heparin Code status: Full code Anticipated discharge place: Pending clinical course Anticipated discharge time: Pending clinical course Objective - Vital Signs Vital signs: Vital Signs Temp 97.8 F 11/10/23 13:42 Pulse 85 11/10/23 13:42 Resp 18 11/10/23 13:42 BP 101/63 11/10/23 13:42 Pulse Ox 93 L 11/10/23 13:42 FiO2 Intake & Output 11/09/23 11/10/23 11/10/23 18:59 06:59 18:59 Output Total 300 500 Balance -300 -500 Weight 152.861 kg Output: Urine 300 500 Other: Voiding Method Indwelling Catheter Indwelling Catheter # Bowel Movements 5 ABP, PAP, CO, CI - Last Documented Arterial Blood Pressure 73/52 - Labs CBC & Chem 7: 11/09/23 15:12 11/10/23 08:26 Labs: Abnormal Lab Results - Last 24 Hours (Table) 11/09/23 11/10/23 Range/Units 15:12 08:26 RBC 4.06 L (4.30-5.90) m/uL MCV 103.4 H (80.0-100.0) fL MCHC 30.8 L (31.0-37.0) g/dL Neutrophils # 8.6 H (1.3-7.7) k/uL Sodium 127 L (137-145) mmol/L Carbon Dioxide 17 L (22-30) mmol/L BUN 33 H (9-20) mg/dL Glucose 122 H (74-99) mg/dL Calcium 8.0 L (8.4-10.2) mg/dL
--- NOTE | 2023-11-10 14:38 | P.PN ---
Subjective Progress Note Date: 11/10/23 Principal diagnosis: Reason for follow-up is C. difficile colitis UTI and leukocytosis Patient is a 77-year-old male with a past medical history significant for hypertension osteoarthritis sleep apnea reflux patient did have a BPH and self catheterize himself because of urine retention, presented to hospital after a fall with weakness he did have a positive UA and has been treated for a UTI also has significant diarrhea stool for C. difficile came back positive pro mpting this consultation. On today's evaluation that is 11/10/2023, the patient continues to be afebrile, the patient is on room air and breathing comfortably, the Pt denies having any chest pain or cough, the patient has been complaining of some abdominal discomfort but denies any pain, no nausea vomiting did have 1 loose stool this morning by the nursing staff. Patient did have a creatinine 0.66 Objective - Vital Signs Vital signs: Vital Signs Temp 97.8 F 11/10/23 13:42 Pulse 85 11/10/23 13:42 Resp 18 11/10/23 13:42 BP 101/63 11/10/23 13:42 Pulse Ox 93 L 11/10/23 13:42 FiO2 Intake & Output 11/09/23 11/10/23 11/10/23 18:59 06:59 18:59 Output Total 300 500 Balance -300 -500 Weight 152.861 kg Output: Urine 300 500 Other: Voiding Method Indwelling Catheter Indwelling Catheter # Bowel Movements 5 ABP, PAP, CO, CI - Last Documented Arterial Blood Pressure 73/52 - Exam GENERAL DESCRIPTION: An elderly male lying in bed in no distress RESPIRATORY SYSTEM: Unlabored breathing , decreased breath sounds at bases HEART: S1 S2 regular rate and rhythm , ABDOMEN: Soft , mild distention and tenderness EXTREMITIES: No edema feet - Labs CBC & Chem 7: 11/09/23 15:12 11/10/23 08:26 Labs: Abnormal Lab Results - Last 24 Hours (Table) 11/09/23 11/10/23 Range/Units 15:12 08:26 RBC 4.06 L (4.30-5.90) m/uL MCV 103.4 H (80.0-100.0) fL MCHC 30.8 L (31.0-37.0) g/dL Neutrophils # 8.6 H (1.3-7.7) k/uL Sodium 127 L (137-145) mmol/L Carbon Dioxide 17 L (22-30) mmol/L BUN 33 H (9-20) mg/dL Glucose 122 H (74-99) mg/dL Calcium 8.0 L (8.4-10.2) mg/dL Assessment and Plan (1) C. difficile colitis Current Visit: Yes Status: Acute Priority: Medium Code(s): A04.72 - ENTEROCOLITIS D/T CLOSTRIDIUM DIFFICILE, NOT SPCF RECUR SNOMED Code(s): 941322682 (2) Leukocytosis Current Visit: Yes Status: Acute Priority: Medium Code(s): D72.829 - ELEVATED WHITE BLOOD CELL COUNT, UNSPECIFIED SNOMED Code(s): 928631458 (3) Urinary tract infection Current Visit: Yes Status: Acute Priority: Medium Code(s): N39.0 - URINARY TRACT INFECTION, SITE NOT SPECIFIED SNOMED Code(s): 21931322 Plan: 1patient with a complicated history and this patient initially presented to the hospital with sepsis as the patient did have a fever elevated white count source likely UTI with urine culture finalized with Pseudomonas aeruginosa, patient did have a CT abdominal pelvis CT shows evidence of hydronephrosis and ureteral stone in this patient who is status post cystoscopy and ureteral stent placement patient is currently covered with the cefepime concerning for pyelonephritis/complicated UTI, for which the patient has received adequate cef epime 2patient did have severe C. difficile colitis patient has shown clinical improvement the patient white count has normalized, patient to continue with oral vancomycin we will discontinue IV Flagyl Dictation was produced using [employer] dictation software. please excuse any grammatical, word or spelling errors. Time with Patient: Less than 30
--- NOTE | 2023-11-10 15:44 | P.PN ---
Subjective Progress Note Date: 11/10/23 CHIEF COMPLAINT: C. difficile colitis HISTORY OF PRESENT ILLNESS: Patient is currently on regular medical floor. Denies any abdominal pain. Patient denies any abdominal pain. He is still having diarrhea. Tolerating diet. Afebrile. WBC 10.6 PHYSICAL EXAM: VITAL SIGNS: Reviewed. GENERAL: no acute distress. ABDOMEN: Soft. Obese. Nondistended. Nontender NEUROLOGIC: Alert and oriented. Cranial nerves II through XII grossly intact. ASSESSMENT: 1. Severe C. difficile colitis PLAN: -Continue regular -Continue C. difficile treatment -No surgical intervention planned at this time -Patient can be discharged from surgical standpoint when medically cleared -resource manager working on discharging patient to [facility] Associate Store Director note has been reviewed by physician. Signing provider agrees with the documented findings, assessment, and plan of care. Objective - Vital Signs Vital signs: Vital Signs Temp 97.8 F 11/10/23 13:42 Pulse 85 11/10/23 13:42 Resp 18 11/10/23 13:42 BP 101/63 11/10/23 13:42 Pulse Ox 93 L 11/10/23 13:42 FiO2 Intake & Output 11/09/23 11/10/23 11/10/23 18:59 06:59 18:59 Output Total 300 500 Balance -300 -500 Weight 152.861 kg Output: Urine 300 500 Other: Voiding Method Indwelling Catheter Indwelling Catheter # Bowel Movements 5 ABP, PAP, CO, CI - Last Documented Arterial Blood Pressure 73/52 - Labs CBC & Chem 7: 11/09/23 15:12 11/10/23 08:26 Labs: Abnormal Lab Results - Last 24 Hours (Table) 11/09/23 11/10/23 Range/Units 15:12 08:26 RBC 4.06 L (4.30-5.90) m/uL MCV 103.4 H (80.0-100.0) fL MCHC 30.8 L (31.0-37.0) g/dL Neutrophils # 8.6 H (1.3-7.7) k/uL Sodium 127 L (137-145) mmol/L Carbon Dioxide 17 L (22-30) mmol/L BUN 33 H (9-20) mg/dL Glucose 122 H (74-99) mg/dL Calcium 8.0 L (8.4-10.2) mg/dL
--- NOTE | 2023-11-10 22:43 | P.PN ---
Subjective Progress Note Date: 11/10/23 11/09/2023, the patient is being seen for a follow-up. Morbidly obese 77-year-old male patient with a body mass index of 59.7 was hospitalized for difficulty with mobility, profound weakness and suspected UTI. Subsequently, the patient was found to have Pseudomonas aeruginosa in the urine suspecting an underlying gram-negative infection. The patient has had is well-developed state of colitis and diarrhea. He is currently being treated with oral vancomycin. He is currently at a dose of 5 mg p.o. 4 times daily. He is also on Questran. He is currently afebrile. He is on pulse oxing 95% on room air oxygen. His CAT scan of the abdomen and pelvis that was done on 11/01/2023 showed evidence of bartlett colitis with severe wall thickening along the right side of the colon. There is also worsening generalized anasarca and he was also noted to have a ureteral stent on the right with a right renal stone measuring 1.1 cm in size. Lung bases are essentially clear. Most recent blood work shows a WC count 10.6 hemoglobin 15 and a platelet count of 268. His sodium is at 128 with a BUN of 34 and a creatinine of 0.7 and serum bicarb is down to 14. Is 110. The patient is currently on oral bicarb 650 mg p.o. 3 times daily. He remains on oral vancomycin and IV Flagyl. On today's evaluation of 11/10/2023, the patient is being seen for a follow-up. The patient is still having some liquidy loose diarrhea. No significant abdominal pain. The patient remains on oral vancomycin and IV Flagyl. He is on room air oxygen. No signs of any significant respiratory distress. No nausea. No emesis. Blood work shows a WBC count of 10.6 from yesterday with a hemoglobin of 13. Sodium level is at 127 and a serum bicarb is at 17 and the patient has a BUN of 33 with a creatinine of 0.6 and a potassium level of 4.5. BUN is at 33 with a creatinine of 0.6. No other significant events overnight. The patient remains on oral bicarb. Patient remains in normal sinus rhythm 130 cc an hour. Room air oxygen with a pulse ox of 93%. Calm and comfortable. No fever. Objective - Vital Signs Vital signs: Vital Signs Temp 97.8 F 11/10/23 07:37 Pulse 85 11/10/23 07:37 Resp 20 11/10/23 07:37 BP 119/69 11/10/23 07:37 Pulse Ox 93 L 11/10/23 07:37 FiO2 Intake & Output 11/09/23 11/10/23 11/10/23 18:59 06:59 18:59 Output Total 300 500 Balance -300 -500 Weight 152.861 kg Output: Urine 300 500 Other: Voiding Method Indwelling Catheter Indwelling Catheter # Bowel Movements 5 ABP, PAP, CO, CI - Last Documented Arterial Blood Pressure 73/52 - Exam No acute distress, oriented 3. No respiratory distress. Currently on room air. Morbidly obese with a BMI 59.7 HEENT examination is grossly unremarkable. Mucous membranes are moist. No oral lesions. Neck supple. Full range of motion. No adenopathy thyromegaly or neck vein distention. Cardiovascular examination reveals regular rhythm rate. S1-S2 normal. No S3 or S4. No discernible murmur noted. Heart sounds are distant. Lungs reveal clear breath sounds. Breath sounds are equal bilaterally. No adventitious lung sounds including wheezes rhonchi or crackles. Abdomen soft with bowel sounds. No masses or tenderness noted. Extremities are intact. No cyanosis clubbing or edema. Skin is without rash or lesion. Neurologic examination is brief but nonfocal. - Labs CBC & Chem 7: 11/09/23 15:12 11/10/23 08:26 Labs: Abnormal Lab Results - Last 24 Hours (Table) 11/09/23 11/10/23 Range/Units 15:12 08:26 RBC 4.06 L (4.30-5.90) m/uL MCV 103.4 H (80.0-100.0) fL MCHC 30.8 L (31.0-37.0) g/dL Neutrophils # 8.6 H (1.3-7.7) k/uL Sodium 127 L (137-145) mmol/L Carbon Dioxide 17 L (22-30) mmol/L BUN 33 H (9-20) mg/dL Glucose 122 H (74-99) mg/dL Calcium 8.0 L (8.4-10.2) mg/dL Assessment and Plan Plan: Acute sepsis secondary to C. difficile colitis and evidence of pancolitis, currently on IV Flagyl and oral vancomycin. Diarrhea has subsided, and the patient is still on treatment regarding C. difficile colitis. Non-anion gap metabolic acidosis currently on bicarb replacement orally, serum bicarb level is improving and the bicarb deficit is being replaced Pseudomonal urinary tract infection plan related to chronic indwelling Garcia catheter BPH Renal stone and the patient has a a right ureteral stent. Renal function stable for now Hypovolemic hyponatremia secondary to diarrhea, improved Leukocytosis, improving History of congestive heart failure with preserved ejection fraction. Obstructive uropathy and hydronephrosis requiring cystoscopy and right ureteral stent insertion on 10/30/23. Morbid obesity. History of obstructive sleep apnea. Generalized weakness, multifactorial. Generalized anasarca Hyponatremia Acute kidney injury, resolved Morbid obesity with a BMI of 59.7 Plan: Patient currently on room air oxygen Will continue oral vancomycin and Questran Monitor the serum bicarb level and the patient is currently on oral bicarb supplements, serum bicarb level is improving Infectious disease on the case regarding antibiotic management regarding the C. difficile colitis Continue losartan CPAP overnight Will continue to follow.
[2023-11-11 06:45] LABS: African American GFR (CKD) >90 (>60 ml/min/1.73 sqM); Anion Gap 0 mmol/L; Blood Urea Nitrogen 33 mg/dL (9-20); Calcium 7.8 mg/dL (8.4-10.2); Carbon Dioxide 16 mmol/L (22-30); Chloride 109 mmol/L (98-107); Glucose 118 mg/dL (74-99); Magnesium 2.1 mg/dL (1.6-2.3); Non-African American GFR(CKD) >90 (>60 ml/min/1.73 sqM); Potassium 4.7 mmol/L (3.5-5.1); Sodium 125 mmol/L (137-145)
[2023-11-11 07:55] LABS: Basophils % (A) 0 %; Eosinophils # (A) 0.1 k/uL (0-0.7); Eosinophils % (A) 2 %; HCT 39.3 % (39.0-53.0); HGB 12.4 gm/dL (13.0-17.5); Lymphocytes # (A) 0.9 k/uL (1.0-4.8); Lymphocytes % (A) 11 %; MCH 31.7 pg (25.0-35.0); MCHC 31.6 g/dL (31.0-37.0); MCV 100.6 fL (80.0-100.0); Macrocytosis Slight; Monocytes # (A) 0.8 k/uL (0-1.0); Monocytes % (A) 9 %; Neutrophils # (A) 6.5 k/uL (1.3-7.7); Neutrophils % (A) 76 %; Platelet Count 287 k/uL (150-450); RBC 3.91 m/uL (4.30-5.90); WBC 8.6 k/uL (3.8-10.6)
--- NOTE | 2023-11-11 11:54 | P.NPCON ---
History of Present Illness - Reason for Consult hyponatremia - History of Present Illness Reason for consultation: Hyponatremia History of present illness: Patient is a 77-year-old male seen in renal consultation for hyponatremia. Patient sodium level on admission October 26, 2023 was 134 and has persistently been in the range of 1 25-1 31 over the last few days. Patient came to the hospital on October 26, 2023 due to generalized weakness. Patient states he performs self catheterizations at home. Patient states his legs gave out and he was seen in the hospital and discharge and then the next day he could not get up from the seat and came back to the hospital. Patient is noted to have C. difficile and d oes complain of having diarrhea. He does admit to progressively worsening edema over the last couple of months. Patient was noted to have right hydronephrosis due to UPJ calculus and underwent cystoscopy with right ureteral stent insertion on October 30, 2023. He currently has a Garcia catheter. Nonoliguric. Patient did receive IV Lasix and was subsequently stopped about 2 days ago. He did receive short duration of IV fluids yesterday and sodium level dropped further. IV fluids were subsequently discontinued. Patient denies personal history of malignancy. Denies nausea or vomiting. Oral intake is fair. Denies history of coronary artery disease. He denies history of diabetes. Vital signs are stable. General: No acute distress. HEENT: Head exam is unremarkable. LUNGS: No audible rhonchi or wheezes. HEART: Rate and Rhythm are regular. ABDOMEN: Obese, nontender. EXTREMITITES: 3+ edema. Past Medical History Past Medical History: Eye Disorder, GERD/Reflux, Hypertension, Osteoarthritis (OA), Prostate Disorder, Renal Disease, Skin Disorder, Sleep Apnea/CPAP/BIPAP Additional Past Medical History / Comment(s): PRE-CA SKIN LESIONS; BACK PAIN; HX RT RENAL CALCULUS, cellulitis of the lower legs with chronic venous susan is,benign prostatic hypertrophy, obstructive sleep apnea no CPAP, chronic back pain secondary to degenerative disc disease,macular degeneration, circumcision has catheter bag History of Any Multi-Drug Resistant Organisms: None Reported, MRSA Date of last positivie culture/infection: 2014 MDRO Source:: finger Past Surgical History: Joint Replacement, Orthopedic Surgery, Prostate Surgery Additional Past Surgical History / Comment(s): 06/30/18 CYSTOSCOPY REMOVAL OF BLADDER CALCULI AND W/ LT URETERAL STENT INSERTION,LT TOTAL KNEE; RT KNEE MAKOPLASTY; ABD LIPOMA REMOVED; RT RENAL CALCULUS LITHOTRIPSY, RT URETERAL STENT, TURP; bilateral cataract removal with lens implants,circumcision Past Anesthesia/Blood Transfusion Reactions: No Reported Reaction Past Psychological History: No Psychological Hx Reported Smoking Status: Former smoker Past Alcohol Use History: Rare Additional Past Alcohol Use History / Comment(s): Patient was a smoker and quit in 1988. Past Drug Use History: None Reported - Past Family History Father Family Medical History: Cancer Additional Family Medical History / Comment(s): Grandfather had heart attack, father at 67 Medications and Allergies Home Medications Medication Instructions Recorded Confirmed Type Aspirin 325 mg PO DAILY 10/28/13 10/26/23 History Doxazosin [Cardura] 8 mg PO HS 10/28/13 10/26/23 History Multivitamins, Thera [Multivitamin 1 tab PO DAILY 10/28/13 10/26/23 History (formulary)] modafiniL [Provigil] 300 mg PO DAILY 10/11/14 10/26/23 History Cholecalciferol [Vitamin D3 (25 50 mcg PO DAILY 05/29/21 10/26/23 History Mcg = 1000 Iu)] Turmeric Root Extract [Turmeric] 500 mg PO DAILY 05/29/21 10/26/23 History Cephalexin [Keflex] 500 mg PO Q8HR #21 cap 10/26/23 10/26/23 Rx Coffee Xt/Phosphatidyl Serine 1 cap PO DAILY 10/26/23 10/26/23 History [Neuriva Original 100-100Mg Cap] Ginkgo Biloba Porum Extract [Ginkgo 125 mg PO DAILY 10/26/23 10/26/23 History Biloba] Hydrocortisone Cream 1 applic TOPICAL BID PRN 10/26/23 10/26/23 History [Hydrocortisone 2.5% Cream] Ketoconazole 2% Cream [Nizoral 2%] 1 applic TOPICAL BID PRN 10/26/23 10/26/23 History Losartan [Cozaar] 25 mg PO DAILY 10/26/23 10/26/23 History Spironolactone [Aldactone] 25 mg PO DAILY 10/26/23 10/26/23 History Allergies Allergy/AdvReac Type Severity Reaction Status Date / Time No Known Allergies Allergy Verified 10/26/23 13:58 Physical Exam Vitals: Vital Signs Temp Pulse Pulse Resp BP Pulse Ox 11/11/23 07:46 98.1 F 85 17 99/61 95 11/11/23 07:20 85 17 11/11/23 02:00 98.2 F 86 105/63 94 L 11/10/23 20:00 97.8 F 85 104/69 97 11/10/23 13:42 97.8 F 85 18 101/63 93 L Intake and Output 11/10/23 11/11/23 11/11/23 22:59 06:59 14:59 Output Total 950 950 200 Balance -950 -950 -200 Output: Urine 950 950 Stool 200 Other: Voiding Method Indwelling Catheter Indwelling Catheter # Bowel Movements 10 1 Results - Lab Results Most recent lab results Calcium 7.8 mg/dL (8.4-10.2) L 11/11/23 05:41 Magnesium 2.1 mg/dL (1.6-2.3) 11/11/23 05:41 11/11/23 05:41 11/11/23 05:41 Assessment and Plan Plan: Assessment: 1. Hypervolemic hyponatremia. 2. Volume overload. 3. Pseudomonas UTI s/p antibiotics. 4. C. difficile colitis on oral vancomycin. ID following. 5. Acute on chronic diastolic CHF. 6. Morbid obesity. 7. Elevated kappa light chains. Seen by hematology. 8. Metabolic acidosis from IV fluids and GI losses. On oral bicarb. 9. Right-sided hydronephrosis due to UPJ calculus status post cystoscopy with right ureteral stent placement. Urology following. Plan: 25 g IV albumin x 2 doses today. Start Lasix drip at 10 cc an hour. Low-salt diet and 1500 cc fluid restriction. Check serum and urine osmolality and urine sodium level. Check TSH. Repeat labs in the morning. Thank you for the consultation. I will continue to follow the patient with you during his hospital stay.
[2023-11-11] MEDS: FUROSEMIDE 100 MG in SODIUM CHLORIDE 0.9% 90 ML IV SCH (12:55)
[2023-11-11] MEDS: ALBUMIN HUMAN 25% 50 ML in EMPTY BAG 1 BAG IVPB SCH ×2 (12:56→21:04)
--- NOTE | 2023-11-11 14:21 | P.PN ---
Subjective Progress Note Date: 11/11/23 CHIEF COMPLAINT: C. difficile colitis HISTORY OF PRESENT ILLNESS: Patient is currently on regular medical floor. Denies any abdominal pain. He is tolerating diet. Patient reports his stools are slightly more formed. Patient seen by nephrology regarding hypervolemic hyponatremia and has been started on a Lasix drip. Patient is off IV fluids. PHYSICAL EXAM: VITAL SIGNS: Reviewed. GENERAL: no acute distress. ABDOMEN: Soft. Obese. Nondistended. Nontender NEUROLOGIC: Alert and oriented. Cranial nerves II through XII grossly intact. ASSESSMENT: 1. Severe C. difficile colitis PLAN: -Continue regular -Continue C. difficile treatment -No surgical intervention planned at this time Physician Well [employer]er note has been reviewed by physician. Signing provider agrees with the documented findings, assessment, and plan of care. Objective - Vital Signs Vital signs: Vital Signs Temp 97.7 F 11/11/23 14:00 Pulse 80 11/11/23 14:00 Resp 17 11/11/23 14:00 BP 120/74 11/11/23 14:00 Pulse Ox 95 11/11/23 14:00 FiO2 Intake & Output 11/10/23 11/11/23 11/11/23 18:59 06:59 18:59 Output Total 950 950 200 Balance -950 -950 -200 Output: Urine 950 950 Stool 200 Other: Voiding Method Indwelling Catheter Indwelling Catheter Indwelling Catheter # Bowel Movements 10 1 ABP, PAP, CO, CI - Last Documented Arterial Blood Pressure 73/52 - Labs CBC & Chem 7: 11/11/23 05:41 11/11/23 05:41 Labs: Abnormal Lab Results - Last 24 Hours (Table) 11/11/23 11/11/23 Range/Units 05:41 05:41 RBC 3.91 L (4.30-5.90) m/uL Hgb 12.4 L (13.0-17.5) gm/dL MCV 100.6 H (80.0-100.0) fL Lymphocytes # 0.9 L (1.0-4.8) k/uL Sodium 125 L (137-145) mmol/L Chloride 109 H (98-107) mmol/L Carbon Dioxide 16 L (22-30) mmol/L BUN 33 H (9-20) mg/dL Creatinine 0.61 L (0.66-1.25) mg/dL Glucose 118 H (74-99) mg/dL Calcium 7.8 L (8.4-10.2) mg/dL
--- NOTE | 2023-11-11 15:16 | P.PN ---
Subjective Progress Note Date: 11/11/23 Hospital Course: Patient is a pleasant 77-year-old male with a past medical history of congestive systolic heart failure with previously known EF of 40 to 45%, hypertension, GERD, obstructive sleep apnea, BPH requiring frequent straight catheterizations and at times Garcia catheter, chronic back pain with bilateral lower extremity neuropathies and restless legs, macular degeneration, and bilateral cataract removal with lens implants. He presented to the emergency department on 10/26/2023 with a chief complaint of generalized weakness. Vital signs in the emergency department show blood pressure 143/74, heart rate 86, respiratory rate 18, temp 99.6, and SpO2 of 95% on room air, shortly after arrival temp elevated as high as 101.3 F. EKG completed showing sinus mechanism at 86 bpm. Chest x- ray completed showing mild cardiomegaly with overall hazy densities related to overlying soft tissue/body habitus. CBC showing leukocytosis with WBC count of 14.4 and macrocytosis with MCV of 100.2. BMP showing hyponatremia with sodium of 134 otherwise normal findings. Lactic acid was 1.3. Magnesium 1.8. Liver profile unremarkable. Urinalysis contaminated specimen but appears positive for infection, urine kappa light 6.17 and urine free lambda light 0.68. Free kappa LC quant was 2.06. Influenza A, influenza B, RSV, and COVID were negative. Patient was started on IV antibiotics with Rocephin admitted under our services for acute cystitis and generalized weakness. Echocardiogram was completed showing preserved EF of 55% and mildly increased left ventricular wall thickness. Urine culture positive for Pseudomonas aeruginosa. Blood culture showing no growth to date. C. difficile positive. Started on oral vancomycin in addition to his cefepime for treatment of Pseudomonas UTI. Underwent right ureteral stent insertion by urology. Patient's condition worsened and WBC count significantly increasing concerning for fulminant C. difficile. Patient was started on IV Flagyl in addition to oral vancomycin and a CT abdomen and pelvis was completed. CT abdomen and pelvis revealed severe pancolitis with colonic distention up to 7.5 cm with no pneumatosis or free air noted at this time. Consult was placed to general surgery infectious disease. Patient was started on vancomycin enemas and fidaxomicin in addition to oral vancomycin and IV Flagyl. He was evaluated by general surgery team who stated that taking patient to the OR could result in significant morbidity and/or mortality and recommending continuation of appropriate antibiotics and resuscitation measures at this time. 10/31/2023 patient was transferred to the ICU and an arterial line was placed for close monitoring of hemodynamic status. Patient's condition improving and he was transferred back to stepdown unit on 11/02/2023. Garcia catheter still in place. Fecal management system discontinued. Patient does have insurance Auth. Does seem to be a little bit more dehydrated, still having frequent bowel movements. Started on IV fluids. Subjective: Patient seen and examined at bedside. No acute events overnight. Still having frequent bowel movements. Urine catheter in place. Pertinent positives and negatives as discussed above, a complete review of systems was performed and all other systems are negative. Vitals Signs Reviewed. General: Nontoxic, no distress, appears at stated age, morbidly obese, generalized anasarca Derm: Warm, dry Head: Atraumatic, normocephalic, symmetric Eyes: EOMI, no lid lag, anicteric sclera Mouth: No lip lesion, mucus membranes moist Cardiovascular: S1S2 reg, no murmur Lungs: CTA bilateral, no rhonchi, no rales, no accessory muscle use Abdominal: Soft, nontender to palpation, no guarding, no appreciable organomegaly Ext: No gross muscle atrophy, no contractures Neuro: CN II-XI grossly intact, no focal neuro deficits Psych: Alert, oriented, appropriate affect Data Reviewed Today: Pertinent Labs: Sodium 127, bicarb 17, creatinine 0.66 Imaging: No new imaging Assessment and Plan: Patient is severely ill, needs close monitoring. Prognosis guarded. Hyponatremia, hypervolemic Acute on chronic diastolic CHF exacerbation Anasarca Severe protein calorie malnutrition Non-anion gap metabolic acidosis secondary to diarrhea -Discussed management with nephrology, patient started on Lasix drip at 10 mg/h, monitor electrolytes and renal function -Also being given 2 bags of IV albumin -Continue oral sodium bicarb 650 3 times daily -needs increased in his protein intake, currently on oral supplements Sepsis secondary to Pseudomonas UTI, present on admission Hydronephrosis with renal and ureteral calculus obstruction status post ureteral stent Hospital course complicated by fulminant C. difficile infection History of BPH --Continue oral vancomycin 500 4 times daily -Completed course of IV cefepime and IV Flagyl -Infectious disease following, managing antibiotic regimen. -Patient still having significant diarrhea, on cholestyramine 4 g twice daily -Was seen by urology -Continue doxazosin 8 mg nightly -Was seen by general surgery, now signed off -[facility] [employer] following Acute kidney injury, resolved Severe leukocytosis resolved History of hypertension Hypotension resolved -Consider restarting Aldactone outpatient -Continue losartan 25 daily -Continue aspirin 325 mg daily. Elevated light chains Low QRS voltage on EKG -Urine kappa light 6.17 and urine free lambda light 0.68. Free kappa LC quant was 2.06. -Hematology evaluated, recommend follow-up in their clinic in 3 months to repeat paraproteinemia labs Obstructive sleep apnea -Continue CPAP nightly and while napping. Morbid obesity, class III with BMI 52.8 kg/m -Recommend outpatient structured weight management program. Hypokalemia. Resolved. Narcolepsy? -Continue home modafinil 300 mg daily DVT ppx: Subcu heparin Code status: Full code Anticipated discharge place: Pending clinical course Anticipated discharge time: Pending clinical course Objective - Vital Signs Vital signs: Vital Signs Temp 97.7 F 11/11/23 14:00 Pulse 80 11/11/23 14:00 Resp 17 11/11/23 14:00 BP 120/74 11/11/23 14:00 Pulse Ox 95 11/11/23 14:00 FiO2 Intake & Output 11/10/23 11/11/23 11/11/23 18:59 06:59 18:59 Output Total 950 950 200 Balance -950 -950 -200 Output: Urine 950 950 Stool 200 Other: Voiding Method Indwelling Catheter Indwelling Catheter Indwelling Catheter # Bowel Movements 10 1 ABP, PAP, CO, CI - Last Documented Arterial Blood Pressure 73/52 - Labs CBC & Chem 7: 11/11/23 05:41 11/11/23 05:41 Labs: Abnormal Lab Results - Last 24 Hours (Table) 11/11/23 11/11/23 Range/Units 05:41 05:41 RBC 3.91 L (4.30-5.90) m/uL Hgb 12.4 L (13.0-17.5) gm/dL MCV 100.6 H (80.0-100.0) fL Lymphocytes # 0.9 L (1.0-4.8) k/uL Sodium 125 L (137-145) mmol/L Chloride 109 H (98-107) mmol/L Carbon Dioxide 16 L (22-30) mmol/L BUN 33 H (9-20) mg/dL Creatinine 0.61 L (0.66-1.25) mg/dL Glucose 118 H (74-99) mg/dL Calcium 7.8 L (8.4-10.2) mg/dL
--- NOTE | 2023-11-11 15:50 | P.PN ---
Subjective Progress Note Date: 11/11/23 11/09/2023, the patient is being seen for a follow-up. Morbidly obese 77-year-old male patient with a body mass index of 59.7 was hospitalized for difficulty with mobility, profound weakness and suspected UTI. Subsequently, the patient was found to have Pseudomonas aeruginosa in the urine suspecting an underlying gram-negative infection. The patient has had is well-developed state of colitis and diarrhea. He is currently being treated with oral vancomycin. He is currently at a dose of 5 mg p.o. 4 times daily. He is also on Questran. He is currently afebrile. He is on pulse oxing 95% on room air oxygen. His CAT scan of the abdomen and pelvis that was done on 11/01/2023 showed evidence of bartlett colitis with severe wall thickening along the right side of the colon. There is also worsening generalized anasarca and he was also noted to have a ureteral stent on the right with a right renal stone measuring 1.1 cm in size. Lung bases are essentially clear. Most recent blood work shows a WC count 10.6 hemoglobin 15 and a platelet count of 268. His sodium is at 128 with a BUN of 34 and a creatinine of 0.7 and serum bicarb is down to 14. Is 110. The patient is currently on oral bicarb 650 mg p.o. 3 times daily. He remains on oral vancomycin and IV Flagyl. On today's evaluation of 11/10/2023, the patient is being seen for a follow-up. The patient is still having some liquidy loose diarrhea. No significant abdominal pain. The patient remains on oral vancomycin and IV Flagyl. He is on room air oxygen. No signs of any significant respiratory distress. No nausea. No emesis. Blood work shows a WBC count of 10.6 from yesterday with a hemoglobin of 13. Sodium level is at 127 and a serum bicarb is at 17 and the patient has a BUN of 33 with a creatinine of 0.6 and a potassium level of 4.5. BUN is at 33 with a creatinine of 0.6. No other significant events overnight. The patient remains on oral bicarb. Patient remains in normal sinus rhythm 130 cc an hour. Room air oxygen with a pulse ox of 93%. Calm and comfortable. No fever. On 11/11/2023, this 77-year-old male patient is being seen for a follow-up. He had episode of diarrhea a total of 3 overnight. Remains on oral vancomycin. No abdominal discomfort. No nausea or emesis. Hemodynamically stable. White cell count is down to 8.6 with a hemoglobin 12.4, sodium levels at 125, BUN 33 with a creatinine of 0.6. Remains on oral bicarb supplements and serum bicarb is currently at 16. Furthermore, the patient was seen by nephrology regarding his ongoing hyponatremia. Recommendations were to stop the IV fluids and the patient was started on Lasix drip at 10 mg an hour as the patient was found to be in hypervolemic hyponatremia and volume overload. Objective - Vital Signs Vital signs: Vital Signs Temp 98.1 F 11/11/23 07:46 Pulse 85 11/11/23 07:46 Resp 17 11/11/23 07:46 BP 99/61 11/11/23 07:46 Pulse Ox 95 11/11/23 07:46 FiO2 Intake & Output 11/10/23 11/11/23 11/11/23 18:59 06:59 18:59 Output Total 950 950 200 Balance -950 -950 -200 Output: Urine 950 950 Stool 200 Other: Voiding Method Indwelling Catheter Indwelling Catheter Indwelling Catheter # Bowel Movements 10 1 ABP, PAP, CO, CI - Last Documented Arterial Blood Pressure 73/52 - Exam No acute distress, oriented 3. No respiratory distress. Currently on room air. Morbidly obese with a BMI 59.7 HEENT examination is grossly unremarkable. Mucous membranes are moist. No oral lesions. Neck supple. Full range of motion. No adenopathy thyromegaly or neck vein distention. Cardiovascular examination reveals regular rhythm rate. S1-S2 normal. No S3 or S4. No discernible murmur noted. Heart sounds are distant. Lungs reveal clear breath sounds. Breath sounds are equal bilaterally. No adventitious lung sounds including wheezes rhonchi or crackles. Abdomen soft with bowel sounds. No masses or tenderness noted. Extremities are intact. No cyanosis clubbing or edema. Skin is without rash or lesion. Neurologic examination is brief but nonfocal. - Labs CBC & Chem 7: 11/11/23 05:41 11/11/23 05:41 Labs: Abnormal Lab Results - Last 24 Hours (Table) 11/11/23 11/11/23 Range/Units 05:41 05:41 RBC 3.91 L (4.30-5.90) m/uL Hgb 12.4 L (13.0-17.5) gm/dL MCV 100.6 H (80.0-100.0) fL Lymphocytes # 0.9 L (1.0-4.8) k/uL Sodium 125 L (137-145) mmol/L Chloride 109 H (98-107) mmol/L Carbon Dioxide 16 L (22-30) mmol/L BUN 33 H (9-20) mg/dL Creatinine 0.61 L (0.66-1.25) mg/dL Glucose 118 H (74-99) mg/dL Calcium 7.8 L (8.4-10.2) mg/dL Assessment and Plan Plan: Acute sepsis secondary to C. difficile colitis and evidence of pancolitis, currently on IV Flagyl and oral vancomycin. Diarrhea has subsided, and the patient is still on treatment regarding C. difficile colitis. Non-anion gap metabolic acidosis currently on bicarb replacement orally, serum bicarb level is improving and the bicarb deficit is being replaced Hypervolemic hyponatremia, started on Lasix drip Pseudomonal urinary tract infection plan related to chronic indwelling Garcia catheter BPH Renal stone and the patient has a a right ureteral stent. Renal function stable for now Hypovolemic hyponatremia secondary to diarrhea, improved Leukocytosis, improving History of congestive heart failure with preserved ejection fraction. Obstructive uropathy and hydronephrosis requiring cystoscopy and right ureteral stent insertion on 10/30/23. Morbid obesity. History of obstructive sleep apnea. Generalized weakness, multifactorial. Generalized anasarca Hyponatremia Acute kidney injury, resolved Morbid obesity with a BMI of 59.7 Plan: Patient currently on room air oxygen Will continue oral vancomycin and Questran Continue Lasix drip Monitor sodium level Monitor the serum bicarb level and the patient is currently on oral bicarb supplements, serum bicarb level is improving Infectious disease on the case regarding antibiotic management regarding the C. difficile colitis Continue losartan CPAP overnight Will continue to follow.
[2023-11-12] MEDS: VANCOMYCIN ORAL SOLUTION 250 MG/5 ML BOTTLE PO SCH (10:36)
[2023-11-12 11:41] LABS: ALT 13 U/L (10-49); AST 21 U/L (14-35); Albumin 2.7 g/dL (3.8-4.9); Albumin/Globulin Ratio 2.45 Ratio (1.60-3.17); Alkaline Phosphatase 50 U/L (41-126); BUN/Creat Ratio 41.57 Ratio (12.00-20.00); Blood Urea Nitrogen 29.1 mg/dL (9.0-27.0); Calcium 8.1 mg/dL (8.7-10.3); Carbon Dioxide 17.6 mmol/L (21.6-31.8); Chloride 103 mmol/L (96-109); Globulin 1.1 g/dL (1.6-3.3); Glucose 121 mg/dL (70-110); Magnesium 1.9 mg/dL (1.5-2.4); Potassium 3.7 mmol/L (3.5-5.5); Sodium 131 mmol/L (135-145); Total Bilirubin 0.4 mg/dL (0.3-1.2); Total Protein 3.8 g/dL (6.2-8.2)
--- NOTE | 2023-11-12 12:44 | P.PN ---
Subjective Patient is seen in follow-up for hyponatremia. Currently on Lasix drip. Sodium level 131 today. Nonoliguric. Oral intake fair. Vital signs are stable. General: No acute distress. HEENT: Head exam is unremarkable. LUNGS: No audible rhonchi or wheezes. HEART: Rate and Rhythm are regular. ABDOMEN: Obese, nontender. EXTREMITITES: 2+ edema. Objective - Vital Signs Vital signs: Vital Signs Temp 98.4 F 11/12/23 07:10 Pulse 81 11/12/23 08:00 Resp 20 11/12/23 08:00 BP 110/67 11/12/23 07:10 Pulse Ox 93 L 11/12/23 07:10 FiO2 Intake & Output 11/11/23 11/12/23 11/12/23 18:59 06:59 18:59 Intake Total 100 100 Output Total 800 4300 1000 Balance -800 -4206 -900 Intake: Intake, IV Titration 100 100 Amount Furosemide 100 mg In 100 100 Sodium Chloride 0.9% 90 ml @ 10 MG/HR 10 mls/hr IV .Q10H [facility] Rx#: [id number] Output: Urine 600 4300 1000 Stool 200 Other: Voiding Method Indwelling Catheter Indwelling Catheter # Bowel Movements 9 5 1 ABP, PAP, CO, CI - Last Documented Arterial Blood Pressure 73/52 - Labs CBC & Chem 7: 11/11/23 05:41 11/12/23 06:16 Labs: Abnormal Lab Results - Last 24 Hours (Table) 11/11/23 11/12/23 Range/Units 10:20 06:16 Sodium 131 L (135-145) mmol/L Carbon Dioxide 17.6 L (21.6-31.8) mmol/L BUN 29.1 H (9.0-27.0) mg/dL BUN/Creatinine Ratio 41.57 H (12.00-20.00) Ratio Glucose 121 H (70-110) mg/dL Calcium 8.1 L (8.7-10.3) mg/dL Total Protein 3.8 L (6.2-8.2) g/dL Albumin 2.7 L (3.8-4.9) g/dL Globulin 1.1 L (1.6-3.3) g/dL Ur Random Sodium <20 L (40-220) mmol/L Assessment and Plan Plan: Assessment: 1. Hypervolemic hyponatremia. Improving with diuresis. TSH normal. Urine sodium less than 20 and urine osmolality 512. 2. Volume overload. 3. Pseudomonas UTI s/p antibiotics. 4. C. difficile colitis on oral vancomycin. ID following. 5. Acute on chronic diastolic CHF. 6. Morbid obesity. 7. Elevated kappa light chains. Seen by hematology. 8. Metabolic acidosis from IV fluids and GI losses. On oral bicarb. 9. Right-sided hydronephrosis due to UPJ calculus status post cystoscopy with right ureteral stent placement. Urology following. Plan: Status post IV albumin given November 11, 2023. Maintain Lasix drip at 10 cc an hour. Low-salt diet and 1500 cc fluid restriction. Repeat labs in the morning.
--- NOTE | 2023-11-12 12:44 | P.PN ---
Subjective Progress Note Date: 11/12/23 patient feels well. His abdominal pain has resolved. On exam vital signs are still. Abdomen soft. Resolving C. diff colitis. Patient is stable for discharge Objective - Vital Signs Vital signs: Vital Signs Temp 98.4 F 11/12/23 07:10 Pulse 81 11/12/23 08:00 Resp 20 11/12/23 08:00 BP 110/67 11/12/23 07:10 Pulse Ox 93 L 11/12/23 07:10 FiO2 Intake & Output 11/11/23 11/12/23 11/12/23 18:59 06:59 18:59 Intake Total 100 100 Output Total 800 4300 1000 Balance -800 -4200 -900 Intake: Intake, IV Titration 100 100 Amount Furosemide 100 mg In 100 100 Sodium Chloride 0.9% 90 ml @ 10 MG/HR 10 mls/hr IV .Q10H [facility] Rx#: [id number] Output: Urine 600 4300 1000 Stool 200 Other: Voiding Method Indwelling Catheter Indwelling Catheter # Bowel Movements 9 5 1 ABP, PAP, CO, CI - Last Documented Arterial Blood Pressure 73/52 - Labs CBC & Chem 7: 11/11/23 05:41 11/12/23 06:16 Labs: Abnormal Lab Results - Last 24 Hours (Table) 11/11/23 11/12/23 Range/Units 10:20 06:16 Sodium 131 L (135-145) mmol/L Carbon Dioxide 17.6 L (21.6-31.8) mmol/L BUN 29.1 H (9.0-27.0) mg/dL BUN/Creatinine Ratio 41.57 H (12.00-20.00) Ratio Glucose 121 H (70-110) mg/dL Calcium 8.1 L (8.7-10.3) mg/dL Total Protein 3.8 L (6.2-8.2) g/dL Albumin 2.7 L (3.8-4.9) g/dL Globulin 1.1 L (1.6-3.3) g/dL Ur Random Sodium <20 L (40-220) mmol/L
--- NOTE | 2023-11-12 14:34 | P.PN ---
Subjective Progress Note Date: 11/12/23 Principal diagnosis: Pseudomonas UTI, obstructing UPJ calculus Mr. Keene underwent right ureteral stent insertion on October 30, 2023 to relieve obstruction resulting from a UPJ calculus. He had a Pseudomonas UTI, which was treated with cefepime. The Garcia catheter is draining clear yellow urine. He is comfortable but very weak. He states that he is unable to ambulate. Objective - Vital Signs Vital signs: Vital Signs Temp 98.4 F 11/12/23 07:10 Pulse 81 11/12/23 08:00 Resp 20 11/12/23 08:00 BP 110/67 11/12/23 07:10 Pulse Ox 93 L 11/12/23 07:10 FiO2 Intake & Output 11/11/23 11/12/23 11/12/23 18:59 06:59 18:59 Intake Total 100 100 Output Total 800 4300 1000 Balance -800 -4200 -900 Intake: Intake, IV Titration 100 100 Amount Furosemide 100 mg In 100 100 Sodium Chloride 0.9% 90 ml @ 10 MG/HR 10 mls/hr IV .Q10H [facility] Rx#: [id number] Output: Urine 600 4300 1000 Stool 200 Other: Voiding Method Indwelling Catheter Indwelling Catheter # Bowel Movements 9 5 1 ABP, PAP, CO, CI - Last Documented Arterial Blood Pressure 73/52 - Constitutional General appearance: Present: average body habitus, cooperative, no acute distress - Psychiatric Psychiatric: Present: A&O x's 3 - Labs CBC & Chem 7: 11/11/23 05:41 11/12/23 06:16 Labs: Abnormal Lab Results - Last 24 Hours (Table) 11/11/23 11/12/23 Range/Units 10:20 06:16 Sodium 131 L (135-145) mmol/L Carbon Dioxide 17.6 L (21.6-31.8) mmol/L BUN 29.1 H (9.0-27.0) mg/dL BUN/Creatinine Ratio 41.57 H (12.00-20.00) Ratio Glucose 121 H (70-110) mg/dL Calcium 8.1 L (8.7-10.3) mg/dL Total Protein 3.8 L (6.2-8.2) g/dL Albumin 2.7 L (3.8-4.9) g/dL Globulin 1.1 L (1.6-3.3) g/dL Ur Random Sodium <20 L (40-220) mmol/L Assessment and Plan (1) Acute pyelonephritis Current Visit: Yes Status: Acute Code(s): N10 - ACUTE PYELONEPHRITIS SNOMED Code(s): 14363326 (2) Calculus of kidney Current Visit: No Status: Acute Code(s): N20.0 - CALCULUS OF KIDNEY SNOMED Code(s): 62863333 (3) Hydronephrosis with renal and ureteral calculus obstruction Current Visit: No Status: Acute Code(s): N13.2 - HYDRONEPHROSIS WITH RENAL AND URETERAL CALCULOUS OBSTRUCTION SNOMED Code(s): 245704144 Plan: Mr. Keene has chronic urinary retention. He is unable to self catheterize, so his catheterizes him. It is anticipated that he will go to [facility] for rehab upon discharge. The Garcia catheter will need to remain in place until he is home, at which time his may resume intermittent catheterization. I explained to him that the ureteral stent should not remain in place for over 3 months. I have suggested he follow-up with me in approximately 6 weeks, at which time he will hopefully have regained strength and the ability to ambulate. Arrangements will be made at that time for him to undergo cystoscopy, removal of bladder calculus, right ureteral stent removal, and ureteroscopic removal of the right renal calculus. Please notify us if we can be of any further assistance during this hospitalization.
--- NOTE | 2023-11-12 14:40 | P.PN ---
Subjective Progress Note Date: 11/12/23 11/09/2023, the patient is being seen for a follow-up. Morbidly obese 77-year-old male patient with a body mass index of 59.7 was hospitalized for difficulty with mobility, profound weakness and suspected UTI. Subsequently, the patient was found to have Pseudomonas aeruginosa in the urine suspecting an underlying gram-negative infection. The patient has had is well-developed state of colitis and diarrhea. He is currently being treated with oral vancomycin. He is currently at a dose of 5 mg p.o. 4 times daily. He is also on Questran. He is currently afebrile. He is on pulse oxing 95% on room air oxygen. His CAT scan of the abdomen and pelvis that was done on 11/01/2023 showed evidence of bartlett colitis with severe wall thickening along the right side of the colon. There is also worsening generalized anasarca and he was also noted to have a ureteral stent on the right with a right renal stone measuring 1.1 cm in size. Lung bases are essentially clear. Most recent blood work shows a WC count 10.6 hemoglobin 15 and a platelet count of 268. His sodium is at 128 with a BUN of 34 and a creatinine of 0.7 and serum bicarb is down to 14. Is 110. The patient is currently on oral bicarb 650 mg p.o. 3 times daily. He remains on oral vancomycin and IV Flagyl. On today's evaluation of 11/10/2023, the patient is being seen for a follow-up. The patient is still having some liquidy loose diarrhea. No significant abdominal pain. The patient remains on oral vancomycin and IV Flagyl. He is on room air oxygen. No signs of any significant respiratory distress. No nausea. No emesis. Blood work shows a WBC count of 10.6 from yesterday with a hemoglobin of 13. Sodium level is at 127 and a serum bicarb is at 17 and the patient has a BUN of 33 with a creatinine of 0.6 and a potassium level of 4.5. BUN is at 33 with a creatinine of 0.6. No other significant events overnight. The patient remains on oral bicarb. Patient remains in normal sinus rhythm 130 cc an hour. Room air oxygen with a pulse ox of 93%. Calm and comfortable. No fever. On 11/11/2023, this 77-year-old male patient is being seen for a follow-up. He had episode of diarrhea a total of 3 overnight. Remains on oral vancomycin. No abdominal discomfort. No nausea or emesis. Hemodynamically stable. White cell count is down to 8.6 with a hemoglobin 12.4, sodium levels at 125, BUN 33 with a creatinine of 0.6. Remains on oral bicarb supplements and serum bicarb is currently at 16. Furthermore, the patient was seen by nephrology regarding his ongoing hyponatremia. Recommendations were to stop the IV fluids and the patient was started on Lasix drip at 10 mg an hour as the patient was found to be in hypervolemic hyponatremia and volume overload. On 11/12/2023, seen the patient for a follow-up. The patient is doing well. Still having episodes of loose diarrhea. Currently on Lasix drip at 10 mg an hour and the patient has been negative fluid balance and he continues to have consider amount of edema lower extremities. Overall close balance is -5 L for today and 1.9 L for yesterday. Blood work from today shows a BUN of 29 with a creatinine of 0.7. Serum bicarb is at 17 and sodium levels at 131. He remains to be on room air oxygen with a pulse ox of 93%. Mobility has been very limited due to his morbid obese body habitus. He has previous history of pseudomonal UTI that was treated with IV antibiotics. Garcia catheter is draining clear liquid urine at this point in time. He has also had a previous right ureteral stent insertion on 10/30/2023 to relieve the obstruction at the UPJ junction. Objective - Vital Signs Vital signs: Vital Signs Temp 98.4 F 11/12/23 07:10 Pulse 81 11/12/23 08:00 Resp 20 11/12/23 08:00 BP 110/67 11/12/23 07:10 Pulse Ox 93 L 11/12/23 07:10 FiO2 Intake & Output 11/11/23 11/12/23 11/12/23 18:59 06:59 18:59 Intake Total 100 100 Output Total 800 4300 Balance -800 -4200 100 Intake: Intake, IV Titration 100 100 Amount Furosemide 100 mg In 100 100 Sodium Chloride 0.9% 90 ml @ 10 MG/HR 10 mls/hr IV .Q10H [facility] Rx#: [id number] Output: Urine 600 4300 Stool 200 Other: Voiding Method Indwelling Catheter Indwelling Catheter # Bowel Movements 9 5 ABP, PAP, CO, CI - Last Documented Arterial Blood Pressure 73/52 - Exam No acute distress, oriented 3. No respiratory distress. Currently on room air. Morbidly obese with a BMI 59.7 HEENT examination is grossly unremarkable. Mucous membranes are moist. No oral lesions. Neck supple. Full range of motion. No adenopathy thyromegaly or neck vein distention. Cardiovascular examination reveals regular rhythm rate. S1-S2 normal. No S3 or S4. No discernible murmur noted. Heart sounds are distant. Lungs reveal clear breath sounds. Breath sounds are equal bilaterally. No adventitious lung sounds including wheezes rhonchi or crackles. Abdomen soft with bowel sounds. No masses or tenderness noted. Extremities are intact. No cyanosis clubbing or edema. Skin is without rash or lesion. Neurologic examination is brief but nonfocal. - Labs CBC & Chem 7: 11/11/23 05:41 11/12/23 06:16 Labs: Abnormal Lab Results - Last 24 Hours (Table) 11/11/23 Range/Units 10:20 Ur Random Sodium <20 L (40-220) mmol/L Assessment and Plan Plan: Acute sepsis secondary to C. difficile colitis and evidence of pancolitis, currently on IV Flagyl and oral vancomycin. Diarrhea has subsided, and the patient is still on treatment regarding C. difficile colitis. Non-anion gap metabolic acidosis currently on bicarb replacement orally, serum bicarb level is improving and the bicarb deficit is being replaced Hypervolemic hyponatremia, started on Lasix drip Pseudomonal urinary tract infection plan related to chronic indwelling Garcia catheter, previous ureteral stent insertion for renal stone at the right UPJ. BPH Renal stone and the patient has a a right ureteral stent. Renal function stable for now Hypovolemic hyponatremia secondary to diarrhea, improved Leukocytosis, improving History of congestive heart failure with preserved ejection fraction. Obstructive uropathy and hydronephrosis requiring cystoscopy and right ureteral stent insertion on 10/30/23. Morbid obesity. History of obstructive sleep apnea. Generalized weakness, multifactorial. Generalized anasarca Hyponatremia Acute kidney injury, resolved Morbid obesity with a BMI of 59.7 Plan: Patient currently on room air oxygen Will continue oral vancomycin and Questran Continue Lasix drip at 10 mg an hour and the patient is in significant negative fluid balance. Continues to have significant amount of edema in lower extremities bilaterally. Monitor sodium level Monitor the serum bicarb level and the patient is currently on oral bicarb supplements, serum bicarb level is a stable for now. Infectious disease on the case regarding antibiotic management regarding the C. difficile colitis Continue losartan CPAP overnight Will continue to follow.
--- NOTE | 2023-11-12 14:58 | P.PN ---
Subjective Progress Note Date: 11/11/23 Principal diagnosis: Reason for follow-up is C. difficile colitis UTI and leukocytosis Patient is a 77-year-old male with a past medical history significant for hypertension osteoarthritis sleep apnea reflux patient did have a BPH and self catheterize himself because of urine retention, presented to hospital after a fall with weakness he did have a positive UA and has been treated for a UTI also has significant diarrhea stool for C. difficile came back positive pro mpting this consultation. On today's evaluation that is 11/11/2023, Patient is afebrile patient is c urrently on room air and denies having any shortness of breath, the patient denies any chest pain or cough, the patient denies any nausea vomiting abdominal discomfort has improved still having diarrhea but mentions slow down Patient white count is 8.6, creatinine 0.61 Objective - Vital Signs Vital signs: Vital Signs Temp 98.1 F 11/11/23 07:46 Pulse 85 11/11/23 07:46 Resp 17 11/11/23 07:46 BP 99/61 11/11/23 07:46 Pulse Ox 95 11/11/23 07:46 FiO2 Intake & Output 11/10/23 11/11/23 11/11/23 18:59 06:59 18:59 Output Total 950 950 200 Balance -950 -950 -200 Output: Urine 950 950 Stool 200 Other: Voiding Method Indwelling Catheter Indwelling Catheter Indwelling Catheter # Bowel Movements 10 1 ABP, PAP, CO, CI - Last Documented Arterial Blood Pressure 73/52 - Exam GENERAL DESCRIPTION: An elderly male lying in bed in no distress RESPIRATORY SYSTEM: Unlabored breathing , decreased breath sounds at bases HEART: S1 S2 regular rate and rhythm , ABDOMEN: Soft , mild distention and tenderness EXTREMITIES: No edema feet - Labs CBC & Chem 7: 11/11/23 05:41 11/12/23 06:16 Labs: Abnormal Lab Results - Last 24 Hours (Table) 11/11/23 11/11/23 Range/Units 05:41 05:41 RBC 3.91 L (4.30-5.90) m/uL Hgb 12.4 L (13.0-17.5) gm/dL MCV 100.6 H (80.0-100.0) fL Lymphocytes # 0.9 L (1.0-4.8) k/uL Sodium 125 L (137-145) mmol/L Chloride 109 H (98-107) mmol/L Carbon Dioxide 16 L (22-30) mmol/L BUN 33 H (9-20) mg/dL Creatinine 0.61 L (0.66-1.25) mg/dL Glucose 118 H (74-99) mg/dL Calcium 7.8 L (8.4-10.2) mg/dL Assessment and Plan (1) C. difficile colitis Current Visit: Yes Status: Acute Priority: Medium Code(s): A04.72 - ENTEROCOLITIS D/T CLOSTRIDIUM DIFFICILE, NOT SPCF RECUR SNOMED Code(s): 075330495 (2) Leukocytosis Current Visit: Yes Status: Acute Priority: Medium Code(s): D72.829 - ELEVATED WHITE BLOOD CELL COUNT, UNSPECIFIED SNOMED Code(s): 865280514 (3) Urinary tract infection Current Visit: Yes Status: Acute Priority: Medium Code(s): N39.0 - URINARY TRACT INFECTION, SITE NOT SPECIFIED SNOMED Code(s): 21466155 Plan: 1patient with a complicated history and this patient initially presented to the hospital with sepsis as the patient did have a fever elevated white count source likely UTI with urine culture finalized with Pseudomonas aeruginosa, patient did have a CT abdominal pelvis CT shows evidence of hydronephrosis and ureteral stone in this patient who is status post cystoscopy and ureteral stent placement patient is currently covered with the cefepime concerning for pyelonephr itis/complicated UTI, for which the patient has received adequate cefepime 2patient with severe C. difficile colitis patient has shown clinical improvement the patient white count has normalized, patient to continue the oral vancomycin along with Questran for symptomatic relief Dictation was produced using [employer] dictation software. please excuse any grammatical, word or spelling errors.
--- NOTE | 2023-11-12 14:59 | P.PN ---
Subjective Progress Note Date: 11/12/23 Principal diagnosis: Reason for follow-up is C. difficile colitis UTI and leukocytosis Patient is a 77-year-old male with a past medical history significant for hypertension osteoarthritis sleep apnea reflux patient did have a BPH and self catheterize himself because of urine retention, presented to hospital after a fall with weakness he did have a positive UA and has been treated for a UTI also has significant diarrhea stool for C. difficile came back positive pro mpting this consultation. On today's evaluation that is 11/12/2023, patient has been afebrile, patient is breathing comfortably and is currently on room air, patient denies having any significant cough no chest pain shortness of breath, patient denies nausea vomiting denies abdominal pain patient denies any worsening diarrhea however I's and O's has documented multiple loose stools as per discussion with the admitting physician Patient did have a creatinine 0.7 no CBC was done today Objective - Vital Signs Vital signs: Vital Signs Temp 98.4 F 11/12/23 07:10 Pulse 81 11/12/23 08:00 Resp 20 11/12/23 08:00 BP 110/67 11/12/23 07:10 Pulse Ox 93 L 11/12/23 07:10 FiO2 Intake & Output 11/11/23 11/12/23 11/12/23 18:59 06:59 18:59 Intake Total 100 100 Output Total 800 4300 1000 Balance -800 -4200 -900 Intake: Intake, IV Titration 100 100 Amount Furosemide 100 mg In 100 100 Sodium Chloride 0.9% 90 ml @ 10 MG/HR 10 mls/hr IV .Q10H [facility] Rx#: [id number] Output: Urine 600 4300 1000 Stool 200 Other: Voiding Method Indwelling Catheter Indwelling Catheter # Bowel Movements 9 5 1 ABP, PAP, CO, CI - Last Documented Arterial Blood Pressure 73/52 - Exam GENERAL DESCRIPTION: An elderly male lying in bed in no distress RESPIRATORY SYSTEM: Unlabored breathing , decreased breath sounds at bases HEART: S1 S2 regular rate and rhythm , ABDOMEN: Soft , mild distention and tenderness EXTREMITIES: No edema feet - Labs CBC & Chem 7: 11/11/23 05:41 11/12/23 06:16 Labs: Abnormal Lab Results - Last 24 Hours (Table) 11/11/23 11/12/23 Range/Units 10:20 06:16 Sodium 131 L (135-145) mmol/L Carbon Dioxide 17.6 L (21.6-31.8) mmol/L BUN 29.1 H (9.0-27.0) mg/dL BUN/Creatinine Ratio 41.57 H (12.00-20.00) Ratio Glucose 121 H (70-110) mg/dL Calcium 8.1 L (8.7-10.3) mg/dL Total Protein 3.8 L (6.2-8.2) g/dL Albumin 2.7 L (3.8-4.9) g/dL Globulin 1.1 L (1.6-3.3) g/dL Ur Random Sodium <20 L (40-220) mmol/L Assessment and Plan (1) C. difficile colitis Current Visit: Yes Status: Acute Priority: Medium Code(s): A04.72 - ENTERO COLITIS D/T CLOSTRIDIUM DIFFICILE, NOT SPCF RECUR SNOMED Code(s): 050048334 (2) Leukocytosis Current Visit: Yes Status: Acute Priority: Medium Code(s): D72.829 - ELEVATED WHITE BLOOD CELL COUNT, UNSPECIFIED SNOMED Code(s): 046473961 (3) Urinary tract infection Current Visit: Yes Status: Acute Priority: Medium Code(s): N39.0 - URINARY TRACT INFECTION, SITE NOT SPECIFIED SNOMED Code(s): 33440987 Plan: 1patient with a complicated history and this patient initially presented to the hospital with sepsis as the patient did have a fever elevated white count source likely UTI with urine culture finalized with Pseudomonas aeruginosa, patient did have a CT abdominal pelvis CT shows evidence of hydronephrosis and ureteral stone in this patient who is status post cystoscopy and ureteral stent placement patient is currently covered with the cefepime concerning for pyelonephritis/complicated UTI, for which the patient has received adequate cefepime 2patient with severe C. difficile colitis, there is some discrepancy between stool output reported by the nursing staff and documented in the I's and O's as per discussion with admitting team we will go ahead and discontinue vancomycin and start the patient on oral Dificid continue Questran for symptomatic relief Dictation was produced using [employer] dictation software. please excuse any grammatical, word or spelling errors. Time with Patient: Less than 30
[2023-11-12] MEDS: POTASSIUM CHLORIDE ER 20 MEQ TAB.ER PO STA (15:29)
[2023-11-12] MEDS: FIDAXOMICIN 200 MG TABLET PO SCH (15:30)
--- NOTE | 2023-11-12 15:49 | P.PN ---
Subjective Progress Note Date: 11/12/23 Hospital Course: Patient is a pleasant 77-year-old male with a past medical history of congestive systolic heart failure with previously known EF of 40 to 45%, hypertension, GERD, obstructive sleep apnea, BPH requiring frequent straight catheterizations and at times Garcia catheter, chronic back pain with bilateral lower extremity neuropathies and restless legs, macular degeneration, and bilateral cataract removal with lens implants. He presented to the emergency department on 10/26/2023 with a chief complaint of generalized weakness. Vital signs in the emergency department show blood pressure 143/74, heart rate 86, respiratory rate 18, temp 99.6, and SpO2 of 95% on room air, shortly after arrival temp elevated as high as 101.3 F. EKG completed showing sinus mechanism at 86 bpm. Chest x- ray completed showing mild cardiomegaly with overall hazy densities related to overlying soft tissue/body habitus. CBC showing leukocytosis with WBC count of 14.4 and macrocytosis with MCV of 100.2. BMP showing hyponatremia with sodium of 134 otherwise normal findings. Lactic acid was 1.3. Magnesium 1.8. Liver profile unremarkable. Urinalysis contaminated specimen but appears positive for infection, urine kappa light 6.17 and urine free lambda light 0.68. Free kappa LC quant was 2.06. Influenza A, influenza B, RSV, and COVID were negative. Patient was started on IV antibiotics with Rocephin admitted under our services for acute cystitis and generalized weakness. Echocardiogram was completed showing preserved EF of 55% and mildly increased left ventricular wall thickness. Urine culture positive for Pseudomonas aeruginosa. Blood culture showing no growth to date. C. difficile positive. Started on oral vancomycin in addition to his cefepime for treatment of Pseudomonas UTI. Underwent right ureteral stent insertion by urology. Patient's condition worsened and WBC count significantly increasing concerning for fulminant C. difficile. Patient was started on IV Flagyl in addition to oral vancomycin and a CT abdomen and pelvis was completed. CT abdomen and pelvis revealed severe pancolitis with colonic distention up to 7.5 cm with no pneumatosis or free air noted at this time. Consult was placed to general surgery infectious disease. Patient was started on vancomycin enemas and fidaxomicin in addition to oral vancomycin and IV Flagyl. He was evaluated by general surgery team who stated that taking patient to the OR could result in significant morbidity and/or mortality and recommending continuation of appropriate antibiotics and resuscitation measures at this time. 10/31/2023 patient was transferred to the ICU and an arterial line was placed for close monitoring of hemodynamic status. Patient's condition improving and he was transferred back to stepdown unit on 11/02/2023. Garcia catheter still in place. Fecal management system discontinued. Patient does have insurance Auth. Does seem to be a little bit more dehydrated, still having frequent bowel movements. Nephrology was consulted, patient is now on Lasix drip, sodium increasing. Also status post IV albumin. Vancomycin discontinued, started on fidaxomicin. Subjective: Patient seen and examined at bedside. No acute events overnight. Still having frequent bowel movements. Urine catheter in place. Pertinent positives and negatives as discussed above, a complete review of systems was performed and all other systems are negative. Vitals Signs Reviewed. General: Nontoxic, no distress, appears at stated age, morbidly obese, generalized anasarca Derm: Warm, dry Head: Atraumatic, normocephalic, symmetric Eyes: EOMI, no lid lag, anicteric sclera Mouth: No lip lesion, mucus membranes moist Cardiovascular: S1S2 reg, no murmur Lungs: CTA bilateral, no rhonchi, no rales, no accessory muscle use Abdominal: Soft, nontender to palpation, no guarding, no appreciable organomegaly Ext: No gross muscle atrophy, no contractures Neuro: CN II-XI grossly intact, no focal neuro deficits Psych: Alert, oriented, appropriate affect Data Reviewed Today: Pertinent Labs: Sodium 131, potassium 3.7, magnesium 1.9, TSH 2.02 Imaging: No new imaging Assessment and Plan: Hyponatremia, hypervolemic Acute on chronic diastolic CHF exacerbation Anasarca Severe protein calorie malnutrition Non-anion gap metabolic acidosis secondary to diarrhea -Nephrology note reviewed, continue on Lasix drip at 10 mg/hr, monitor electrolytes and renal function -Close IV albumin -Continue oral sodium bicarb 650 3 times daily -needs increased in his protein intake, currently on oral supplements Sepsis secondary to Pseudomonas UTI, present on admission Hydronephrosis with renal and ureteral calculus obstruction status post ureteral stent Hospital course complicated by fulminant C. difficile infection History of BPH -Discussed management with ID, changed to fidaxomicin 200 twice daily, oral vancomycin discontinued, continue cholestyramine 4 g twice daily -Completed course of IV cefepime and IV Flagyl -Urology note reviewed, Garcia catheter remained until patient gets home, may resume intermittent catheterization at that time, ureteral stent to be taken out in approximately 6 weeks when patient will undergo cystoscopy and removal of bladder calculus and right renal calculus. -Continue doxazosin 8 mg nightly -General surgery note reviewed, okay to be discharged -[employer] following Acute kidney injury, resolved Severe leukocytosis resolved History of hypertension Hypotension resolved -Consider restarting Aldactone outpatient -Continue losartan 25 daily -Continue aspirin 325 mg daily. Elevated light chains Low QRS voltage on EKG -Urine kappa light 6.17 and urine free lambda light 0.68. Free kappa LC quant was 2.06. -Hematology evaluated, recommend follow-up in their clinic in 3 months to repeat paraproteinemia labs Obstructive sleep apnea -Continue CPAP nightly and while napping. Morbid obesity, class III with BMI 52.8 kg/m -Recommend outpatient structured weight management program. Hypokalemia. Resolved. Narcolepsy? -Continue home modafinil 300 mg daily DVT ppx: Subcu heparin Code status: Full code Anticipated discharge place: Pending clinical course Anticipated discharge time: Pending clinical course Objective - Vital Signs Vital signs: Vital Signs Temp 98.4 F 11/12/23 07:10 Pulse 81 11/12/23 08:00 Resp 20 11/12/23 08:00 BP 110/67 11/12/23 07:10 Pulse Ox 93 L 11/12/23 07:10 FiO2 Intake & Output 11/11/23 11/12/23 11/12/23 18:59 06:59 18:59 Intake Total 100 100 Output Total 800 4300 1000 Balance -800 -4200 -900 Intake: Intake, IV Titration 100 100 Amount Furosemide 100 mg In 100 100 Sodium Chloride 0.9% 90 ml @ 10 MG/HR 10 mls/hr IV .Q10H EDWIN Rx#: [id number] Output: Urine 600 4300 1000 Stool 200 Other: Voiding Method Indwelling Catheter Indwelling Catheter # Bowel Movements 9 5 1 ABP, PAP, CO, CI - Last Documented Arterial Blood Pressure 73/52 - Labs CBC & Chem 7: 11/11/23 05:41 11/12/23 06:16 Labs: Abnormal Lab Results - Last 24 Hours (Table) 11/11/23 11/12/23 Range/Units 10:20 06:16 Sodium 131 L (135-145) mmol/L Carbon Dioxide 17.6 L (21.6-31.8) mmol/L BUN 29.1 H (9.0-27.0) mg/dL BUN/Creatinine Ratio 41.57 H (12.00-20.00) Ratio Glucose 121 H (70-110) mg/dL Calcium 8.1 L (8.7-10.3) mg/dL Total Protein 3.8 L (6.2-8.2) g/dL Albumin 2.7 L (3.8-4.9) g/dL Globulin 1.1 L (1.6-3.3) g/dL Ur Random Sodium <20 L (40-220) mmol/L
[2023-11-13 06:50] LABS: Basophils # (A) 0.1 k/uL (0-0.2); Basophils % (A) 1 %; Eosinophils # (A) 0.2 k/uL (0-0.7); Eosinophils % (A) 3 %; HCT 35.8 % (39.0-53.0); Lymphocytes # (A) 1.1 k/uL (1.0-4.8); Lymphocytes % (A) 20 %; MCH 33.2 pg (25.0-35.0); MCHC 33.6 g/dL (31.0-37.0); MCV 98.9 fL (80.0-100.0); Macrocytosis Slight; Mean Platelet Volume 7.7; Monocytes # (A) 0.4 k/uL (0-1.0); Monocytes % (A) 8 %; Neutrophils # (A) 3.6 k/uL (1.3-7.7); Neutrophils % (A) 65 %; Platelet Count 315 k/uL (150-450); RBC 3.62 m/uL (4.30-5.90); RDW 15.2 % (11.5-15.5); WBC 5.5 k/uL (3.8-10.6)
[2023-11-13 06:59] LABS: ALT 17 U/L (4-49); AST 25 U/L (17-59); African American GFR (CKD) >90 (>60 ml/min/1.73 sqM); Albumin 2.2 g/dL (3.5-5.0); Albumin/Globulin Ratio 1.2; Alkaline Phosphatase 61 U/L (38-126); Anion Gap 0 mmol/L; Blood Urea Nitrogen 28 mg/dL (9-20); Calcium 7.8 mg/dL (8.4-10.2); Carbon Dioxide 27 mmol/L (22-30); Chloride 101 mmol/L (98-107); Globulin 1.9 g/dL; Glucose 111 mg/dL (74-99); Magnesium 1.7 mg/dL (1.6-2.3); Non-African American GFR(CKD) >90 (>60 ml/min/1.73 sqM); Potassium 3.1 mmol/L (3.5-5.1); Sodium 128 mmol/L (137-145); Total Bilirubin 0.6 mg/dL (0.2-1.3); Total Protein 4.1 g/dL (6.3-8.2)
[2023-11-13] MEDS ORDERED: Potassium Replacement Protocol 1 EACH MISC MISCELLANE PRN (07:16)
[2023-11-13] MEDS: POTASSIUM CHLORIDE ER 20 MEQ TAB.ER PO SCH ×4 (08:41→21:08)
--- NOTE | 2023-11-13 09:01 | P.PN ---
Subjective Progress Note Date: 11/13/23 patient feels better. His abdomen has no real complaints. On exam vital signs appear stable. Abdomen soft. Resolving C. diff colitis. Patient will continue receive supportive care. Objective - Vital Signs Vital signs: Vital Signs Temp 98.4 F 11/13/23 07:55 Pulse 84 11/13/23 07:55 Resp 18 11/13/23 07:55 BP 104/62 11/13/23 07:55 Pulse Ox 92 L 11/13/23 07:55 FiO2 Intake & Output 11/12/23 11/13/23 11/13/23 18:59 06:59 18:59 Intake Total 1050 184.333 Output Total 1000 2950 1000 Balance 50 -2765.667 -1000 Intake: Intake, IV Titration 100 184.333 Amount Furosemide 100 mg In 100 184.333 Sodium Chloride 0.9% 90 ml @ 10 MG/HR 10 mls/hr IV .Q10H [facility] Rx#: [id number] Oral 950 Output: Urine 1000 2950 1000 Other: Voiding Method Indwelling Catheter Indwelling Catheter Indwelling Catheter # Bowel Movements 1 5 1 ABP, PAP, CO, CI - Last Documented Arterial Blood Pressure 73/52 - Labs CBC & Chem 7: 11/13/23 06:03 11/13/23 06:03 Labs: Abnormal Lab Results - Last 24 Hours (Table) 11/12/23 11/13/23 11/13/23 Range/Units 06:16 06:03 06:03 RBC 3.62 L (4.30-5.90) m/uL Hgb 12.0 L (13.0-17.5) gm/dL Hct 35.8 L (39.0-53.0) % Sodium 131 L 128 L (135-145) mmol/L Potassium 3.1 L (3.5-5.1) mmol/L Carbon Dioxide 17.6 L (21.6-31.8) mmol/L BUN 29.1 H 28 H (9.0-27.0) mg/dL BUN/Creatinine Ratio 41.57 H (12.00-20.00) Ratio Glucose 121 H 111 H (70-110) mg/dL Calcium 8.1 L 7.8 L (8.7-10.3) mg/dL Total Protein 3.8 L 4.1 L (6.2-8.2) g/dL Albumin 2.7 L 2.2 L (3.8-4.9) g/dL Globulin 1.1 L (1.6-3.3) g/dL
[2023-11-13] MEDS: MAGNESIUM SULFATE-D5W PMX 1 GM in DEXTROSE/WATER 1 100ML.BAG IVPB ONE (10:18)
--- NOTE | 2023-11-13 11:18 | P.PN ---
Subjective Patient is seen in follow-up for hyponatremia. Currently on Lasix drip. Sodium level 128 today. Nonoliguric. Urine output over 5 L in the last 24 hours. Oral intake fair. Vital signs are stable. General: No acute distress. HEENT: Head exam is unremarkable. LUNGS: No audible rhonchi or wheezes. HEART: Rate and Rhythm are regular. ABDOMEN: Obese, nontender. EXTREMITITES: 2+ edema. Objective - Vital Signs Vital signs: Vital Signs Temp 98.4 F 11/13/23 07:55 Pulse 84 11/13/23 07:55 Resp 18 11/13/23 07:55 BP 104/62 11/13/23 07:55 Pulse Ox 92 L 11/13/23 07:55 FiO2 Intake & Output 11/12/23 11/13/23 11/13/23 18:59 06:59 18:59 Intake Total 1050 184.333 Output Total 1000 2950 1000 Balance 50 -2765.667 -1000 Intake: Intake, IV Titration 100 184.333 Amount Furosemide 100 mg In 100 184.333 Sodium Chloride 0.9% 90 ml @ 10 MG/HR 10 mls/hr IV .Q10H EDWIN Rx#: [id number] Oral 950 Output: Urine 1000 2950 1000 Other: Voiding Method Indwelling Catheter Indwelling Catheter Indwelling Catheter # Bowel Movements 1 5 1 ABP, PAP, CO, CI - Last Documented Arterial Blood Pressure 73/52 - Labs CBC & Chem 7: 11/13/23 06:03 11/13/23 06:03 Labs: Abnormal Lab Results - Last 24 Hours (Table) 11/12/23 11/13/23 11/13/23 Range/Units 06:16 06:03 06:03 RBC 3.62 L (4.30-5.90) m/uL Hgb 12.0 L (13.0-17.5) gm/dL Hct 35.8 L (39.0-53.0) % Sodium 131 L 128 L (135-145) mmol/L Potassium 3.1 L (3.5-5.1) mmol/L Carbon Dioxide 17.6 L (21.6-31.8) mmol/L BUN 29.1 H 28 H (9.0-27.0) mg/dL BUN/Creatinine Ratio 41.57 H (12.00-20.00) Ratio Glucose 121 H 111 H (70-110) mg/dL Calcium 8.1 L 7.8 L (8.7-10.3) mg/dL Total Protein 3.8 L 4.1 L (6.2-8.2) g/dL Albumin 2.7 L 2.2 L (3.8-4.9) g/dL Globulin 1.1 L (1.6-3.3) g/dL Assessment and Plan Plan: Assessment: 1. Hypervolemic hyponatremia. Improved with diuresis. TSH normal. Urine sodium less than 20 and urine osmolality 512. Sodium level 128 today. 2. Volume overload. Improving with diuresis. 3. Pseudomonas UTI s/p antibiotics. 4. C. difficile colitis on Dificid. ID following. 5. Acute on chronic diastolic CHF. 6. Morbid obesity. 7. Elevated kappa light chains. Seen by hematology. 8. Metabolic acidosis from IV fluids and GI losses. Improved. 9. Right-sided hydronephrosis due to UPJ calculus status post cystoscopy with right ureteral stent placement. Urology following. 10. Hypokalemia from diuresis. Plan: Status post IV albumin given November 11, 2023. Maintain Lasix drip at 10 cc an hour. Low-salt diet and 1500 cc fluid restriction. Replace potassium. Stop bicarb. Repeat labs in the morning.
[2023-11-13] MEDS: POTASSIUM CHLORIDE ER 20 MEQ TAB.ER PO STA ×2 (12:16→17:01)
--- NOTE | 2023-11-13 14:24 | P.PN ---
Subjective Progress Note Date: 11/13/23 11/09/2023, the patient is being seen for a follow-up. Morbidly obese 77-year-old male patient with a body mass index of 59.7 was hospitalized for difficulty with mobility, profound weakness and suspected UTI. Subsequently, the patient was found to have Pseudomonas aeruginosa in the urine suspecting an underlying gram-negative infection. The patient has had is well-developed state of colitis and diarrhea. He is currently being treated with oral vancomycin. He is currently at a dose of 5 mg p.o. 4 times daily. He is also on Questran. He is currently afebrile. He is on pulse oxing 95% on room air oxygen. His CAT scan of the abdomen and pelvis that was done on 11/01/2023 showed evidence of bartlett colitis with severe wall thickening along the right side of the colon. There is also worsening generalized anasarca and he was also noted to have a ureteral stent on the right with a right renal stone measuring 1.1 cm in size. Lung bases are essentially clear. Most recent blood work shows a WC count 10.6 hemoglobin 15 and a platelet count of 268. His sodium is at 128 with a BUN of 34 and a creatinine of 0.7 and serum bicarb is down to 14. Is 110. The patient is currently on oral bicarb 650 mg p.o. 3 times daily. He remains on oral vancomycin and IV Flagyl. On today's evaluation of 11/10/2023, the patient is being seen for a follow-up. The patient is still having some liquidy loose diarrhea. No significant abdominal pain. The patient remains on oral vancomycin and IV Flagyl. He is on room air oxygen. No signs of any significant respiratory distress. No nausea. No emesis. Blood work shows a WBC count of 10.6 from yesterday with a hemoglobin of 13. Sodium level is at 127 and a serum bicarb is at 17 and the patient has a BUN of 33 with a creatinine of 0.6 and a potassium level of 4.5. BUN is at 33 with a creatinine of 0.6. No other significant events overnight. The patient remains on oral bicarb. Patient remains in normal sinus rhythm 130 cc an hour. Room air oxygen with a pulse ox of 93%. Calm and comfortable. No fever. On 11/11/2023, this 77-year-old male patient is being seen for a follow-up. He had episode of diarrhea a total of 3 overnight. Remains on oral vancomycin. No abdominal discomfort. No nausea or emesis. Hemodynamically stable. White cell count is down to 8.6 with a hemoglobin 12.4, sodium levels at 125, BUN 33 with a creatinine of 0.6. Remains on oral bicarb supplements and serum bicarb is currently at 16. Furthermore, the patient was seen by nephrology regarding his ongoing hyponatremia. Recommendations were to stop the IV fluids and the patient was started on Lasix drip at 10 mg an hour as the patient was found to be in hypervolemic hyponatremia and volume overload. On 11/12/2023, seen the patient for a follow-up. The patient is doing well. Still having episodes of loose diarrhea. Currently on Lasix drip at 10 mg an hour and the patient has been negative fluid balance and he continues to have consider amount of edema lower extremities. Overall close balance is -5 L for today and 1.9 L for yesterday. Blood work from today shows a BUN of 29 with a creatinine of 0.7. Serum bicarb is at 17 and sodium levels at 131. He remains to be on room air oxygen with a pulse ox of 93%. Mobility has been very limited due to his morbid obese body habitus. He has previous history of pseudomonal UTI that was treated with IV antibiotics. Garcia catheter is draining clear liquid urine at this point in time. He has also had a previous right ureteral stent insertion on 10/30/2023 to relieve the obstruction at the UPJ junction. . On 11/13/2023, the patient remains on Lasix drip. Doing well. Urine output is over 5 L over the past 24 hours. No nausea or emesis or abdominal pain. Still has lower extremity edema. BUN is 28 with a creatinine of 0.6. Sodium levels at 128. White cell count is 5.5 with a hemoglobin 12.0. Remains on Lasix drip at 10 mg an hour. Oral vancomycin has been discontinued by infectiou s disease and the patient was switched to Dificid 200 mg p.o. twice a day. He remains on Questran 4 g twice daily. Objective - Vital Signs Vital signs: Vital Signs Temp 98.4 F 11/13/23 07:55 Pulse 84 11/13/23 07:55 Resp 18 11/13/23 07:55 BP 104/62 11/13/23 07:55 Pulse Ox 92 L 11/13/23 07:55 FiO2 Intake & Output 11/12/23 11/13/23 11/13/23 18:59 06:59 18:59 Intake Total 1050 184.333 Output Total 1000 2950 1000 Balance 50 -2765.667 -1000 Intake: Intake, IV Titration 100 184.333 Amount Furosemide 100 mg In 100 184.333 Sodium Chloride 0.9% 90 ml @ 10 MG/HR 10 mls/hr IV .Q10H [facility] Rx#: [id number] Oral 950 Output: Urine 1000 2950 1000 Other: Voiding Method Indwelling Catheter Indwelling Catheter Indwelling Catheter # Bowel Movements 1 5 1 ABP, PAP, CO, CI - Last Documented Arterial Blood Pressure 73/52 - Exam No acute distress, oriented 3. No respiratory distress. Currently on room air. Morbidly obese with a BMI 59.7 HEENT examination is grossly unremarkable. Mucous membranes are moist. No oral lesions. Neck supple. Full range of motion. No adenopathy thyromegaly or neck vein distention. Cardiovascular examination reveals regular rhythm rate. S1-S2 normal. No S3 or S4. No discernible murmur noted. Heart sounds are distant. Lungs reveal clear breath sounds. Breath sounds are equal bilaterally. No adventitious lung sounds including wheezes rhonchi or crackles. Abdomen soft with bowel sounds. No masses or tenderness noted. Extremities are intact. No cyanosis clubbing or edema. Skin is without rash or lesion. Neurologic examination is brief but nonfocal. - Labs CBC & Chem 7: 11/13/23 06:03 11/13/23 06:03 Labs: Abnormal Lab Results - Last 24 Hours (Table) 11/12/23 11/13/23 11/13/23 Range/Units 06:16 06:03 06:03 RBC 3.62 L (4.30-5.90) m/uL Hgb 12.0 L (13.0-17.5) gm/dL Hct 35.8 L (39.0-53.0) % Sodium 131 L 128 L (135-145) mmol/L Potassium 3.1 L (3.5-5.1) mmol/L Carbon Dioxide 17.6 L (21.6-31.8) mmol/L BUN 29.1 H 28 H (9.0-27.0) mg/dL BUN/Creatinine Ratio 41.57 H (12.00-20.00) Ratio Glucose 121 H 111 H (70-110) mg/dL Calcium 8.1 L 7.8 L (8.7-10.3) mg/dL Total Protein 3.8 L 4.1 L (6.2-8.2) g/dL Albumin 2.7 L 2.2 L (3.8-4.9) g/dL Globulin 1.1 L (1.6-3.3) g/dL Assessment and Plan Plan: Acute sepsis secondary to C. difficile colitis and evidence of pancolitis, currently on IV Flagyl and oral vancomycin. Diarrhea has subsided, and the patient is still on treatment regarding C. difficile colitis. Non-anion gap metabolic acidosis currently on bicarb replacement orally, serum bicarb level is improved and normalized Hypervolemic hyponatremia, started on Lasix drip and the patient responding nicely with a total of 5 L urine output over the past 24 hours. Sodium levels at 128. Renal function stable. Pseudomonal urinary tract infection plan related to chronic indwelling Garcia catheter, previous ureteral stent insertion for renal stone at the right UPJ. BPH Renal stone and the patient has a a right ureteral stent. Renal function stable for now Leukocytosis, improving History of congestive heart failure with preserved ejection fraction. Obstructive uropathy and hydronephrosis requiring cystoscopy and right ureteral stent insertion on 10/30/23. Morbid obesity. History of obstructive sleep apnea. Generalized weakness, multifactorial. Generalized anasarca Hyponatremia Acute kidney injury, resolved Morbid obesity with a BMI of 59.7 Plan: Patient currently on room air oxygen Will continue oral Dificid and Questran Continue Lasix drip at 10 mg an hour and the patient is in significant negative fluid balance. Continues to have significant amount of edema in lower extremities bilaterally Monitor sodium level Monitor the serum bicarb level and the patient is currently on oral bicarb sup plements, serum bicarb level is a stable for now. Infectious disease on the case regarding antibiotic management regarding the C. difficile colitis Continue losartan CPAP overnight Nephrology and infectious disease are both on the case.
--- NOTE | 2023-11-13 14:56 | P.PN ---
Subjective Progress Note Date: 11/13/23 Hospital Course: Patient is a pleasant 77-year-old male with a past medical history of congestive systolic heart failure with previously known EF of 40 to 45%, hypertension, GERD, obstructive sleep apnea, BPH requiring frequent straight catheterizations and at times Garcia catheter, chronic back pain with bilateral lower extremity neuropathies and restless legs, macular degeneration, and bilateral cataract removal with lens implants. He presented to the emergency department on 10/26/2023 with a chief complaint of generalized weakness. Vital signs in the emergency department show blood pressure 143/74, heart rate 86, respiratory rate 18, temp 99.6, and SpO2 of 95% on room air, shortly after arrival temp elevated as high as 101.3 F. EKG completed showing sinus mechanism at 86 bpm. Chest x- ray completed showing mild cardiomegaly with overall hazy densities related to overlying soft tissue/body habitus. CBC showing leukocytosis with WBC count of 14.4 and macrocytosis with MCV of 100.2. BMP showing hyponatremia with sodium of 134 otherwise normal findings. Lactic acid was 1.3. Magnesium 1.8. Liver profile unremarkable. Urinalysis contaminated specimen but appears positive for infection, urine kappa light 6.17 and urine free lambda light 0.68. Free kappa LC quant was 2.06. Influenza A, influenza B, RSV, and COVID were negative. Patient was started on IV antibiotics with Rocephin admitted under our services for acute cystitis and generalized weakness. Echocardiogram was completed showing preserved EF of 55% and mildly increased left ventricular wall thickness. Urine culture positive for Pseudomonas aeruginosa. Blood culture showing no growth to date. C. difficile positive. Started on oral vancomycin in addition to his cefepime for treatment of Pseudomonas UTI. Underwent right ureteral stent insertion by urology. Patient's condition worsened and WBC count significantly increasing concerning for fulminant C. difficile. Patient was started on IV Flagyl in addition to oral vancomycin and a CT abdomen and pelvis was completed. CT abdomen and pelvis revealed severe pancolitis with colonic distention up to 7.5 cm with no pneumatosis or free air noted at this time. Consult was placed to general surgery infectious disease. Patient was started on vancomycin enemas and fidaxomicin in addition to oral vancomycin and IV Flagyl. He was evaluated by general surgery team who stated that taking patient to the OR could result in significant morbidity and/or mortality and recommending continuation of appropriate antibiotics and resuscitation measures at this time. 10/31/2023 patient was transferred to the ICU and an arterial line was placed for close monitoring of hemodynamic status. Patient's condition improving and he was transferred back to stepdown unit on 11/02/2023. Garcia catheter still in place. Fecal management system discontinued. Patient does have insurance Auth. Does seem to be a little bit more dehydrated, still having frequent bowel movements. Nephrology was consulted, patient is now on Lasix drip, sodium increasing. Also status post IV albumin. Vancomycin discontinued, started on fidaxomicin. Subjective: Patient seen and examined at bedside. No acute events overnight. Still having frequent bowel movements, slightly slowing down. Urine catheter in place. Pertinent positives and negatives as discussed above, a complete review of systems was performed and all other systems are negative. Vitals Signs Reviewed. General: Nontoxic, no distress, appears at stated age, morbidly obese, generalized anasarca Derm: Warm, dry Head: Atraumatic, normocephalic, symmetric Eyes: EOMI, no lid lag, anicteric sclera Mouth: No lip lesion, mucus membranes moist Cardiovascular: S1S2 reg, no murmur Lungs: CTA bilateral, no rhonchi, no rales, no accessory muscle use Abdominal: Soft, nontender to palpation, no guarding, no appreciable organomegaly Ext: No gross muscle atrophy, no contractures Neuro: CN II-XI grossly intact, no focal neuro deficits Psych: Alert, oriented, appropriate affect Data Reviewed Today: Pertinent Labs: Sodium 128, potassium 3.1, magnesium 1.7, WBC 5.5, hemoglobin 12 Imaging: No new imaging Assessment and Plan: Hyponatremia, hypervolemic Acute on chronic diastolic CHF exacerbation Anasarca Severe protein calorie malnutrition Non-anion gap metabolic acidosis secondary to diarrhea Hypokalemia -Nephrology note reviewed, continue on Lasix drip at 10 mg/hr, monitor electrolytes and renal function, replace potassium -Status post IV albumin -Continue oral sodium bicarb 650 3 times daily -needs increased in his protein intake, currently on oral supplements Sepsis secondary to Pseudomonas UTI, present on admission Hydronephrosis with renal and ureteral calculus obstruction status post ureteral stent Hospital course complicated by fulminant C. difficile infection History of BPH -ID following, continue fidaxomicin 200 twice daily, oral vancomycin discontinued, continue cholestyramine 4 g twice daily -Completed course of IV cefepime and IV Flagyl -Urology following, Garcia catheter remained until patient gets home, may resume intermittent catheterization at that time, ureteral stent to be taken out in approximately 6 weeks when patient will undergo cystoscopy and removal of bladder calculus and right renal calculus. -Continue doxazosin 8 mg nightly -General surgery: Okay to be discharged -[employer] following, continue current therapy Acute kidney injury, resolved Severe leukocytosis resolved History of hypertension Hypotension resolved -Consider restarting Aldactone outpatient -Continue losartan 25 daily -Continue aspirin 325 mg daily. Elevated light chains Low QRS voltage on EKG -Urine kappa light 6.17 and urine free lambda light 0.68. Free kappa LC quant was 2.06. -Hematology evaluated, recommend follow-up in their clinic in 3 months to repeat paraproteinemia labs Obstructive sleep apnea -Continue CPAP nightly and while napping. Morbid obesity, class III with BMI 52.8 kg/m -Recommend outpatient structured weight management program. Narcolepsy? -Continue home modafinil 300 mg daily DVT ppx: Subcu heparin Code status: Full code Anticipated discharge place: Pending clinical course Anticipated discharge time: Pending clinical course Objective - Vital Signs Vital signs: Vital Signs Temp 98.4 F 11/13/23 07:55 Pulse 84 11/13/23 07:55 Resp 18 11/13/23 07:55 BP 104/62 11/13/23 07:55 Pulse Ox 92 L 11/13/23 07:55 FiO2 Intake & Output 11/12/23 11/13/23 11/13/23 18:59 06:59 18:59 Intake Total 1050 184.333 76.333 Output Total 1000 2950 1000 Balance 50 -9581.667 -923.667 Weight 152.861 kg Intake: Intake, IV Titration 100 184.333 76.333 Amount Furosemide 100 mg In 100 184.333 76.333 Sodium Chloride 0.9% 90 ml @ 10 MG/HR 10 mls/hr IV .Q10H [facility] Rx#: [id number] Oral 950 Output: Urine 1000 2950 1000 Other: Voiding Method Indwelling Catheter Indwelling Catheter Indwelling Catheter # Bowel Movements 1 5 1 ABP, PAP, CO, CI - Last Documented Arterial Blood Pressure 73/52 - Labs CBC & Chem 7: 11/13/23 06:03 11/13/23 06:03 Labs: Abnormal Lab Results - Last 24 Hours (Table) 11/13/23 11/13/23 Range/Units 06:03 06:03 RBC 3.62 L (4.30-5.90) m/uL Hgb 12.0 L (13.0-17.5) gm/dL Hct 35.8 L (39.0-53.0) % Sodium 128 L (137-145) mmol/L Potassium 3.1 L (3.5-5.1) mmol/L BUN 28 H (9-20) mg/dL Glucose 111 H (74-99) mg/dL Calcium 7.8 L (8.4-10.2) mg/dL Total Protein 4.1 L (6.3-8.2) g/dL Albumin 2.2 L (3.5-5.0) g/dL
[2023-11-13 15:34] LABS: ALT 16 U/L (4-49); AST 23 U/L (17-59); African American GFR (CKD) >90 (>60 ml/min/1.73 sqM); Albumin/Globulin Ratio 1.1; Alkaline Phosphatase 80 U/L (38-126); Anion Gap 2 mmol/L; Blood Urea Nitrogen 27 mg/dL (9-20); Calcium 7.4 mg/dL (8.4-10.2); Carbon Dioxide 27 mmol/L (22-30); Chloride 99 mmol/L (98-107); Globulin 1.8 g/dL; Glucose 172 mg/dL (74-99); Non-African American GFR(CKD) >90 (>60 ml/min/1.73 sqM); Potassium 3.2 mmol/L (3.5-5.1); Sodium 128 mmol/L (137-145); Total Bilirubin 0.3 mg/dL (0.2-1.3); Total Protein 3.8 g/dL (6.3-8.2)
--- NOTE | 2023-11-13 15:57 | P.PN ---
Subjective Progress Note Date: 11/13/23 Principal diagnosis: Reason for follow-up is C. difficile colitis UTI and leukocytosis Patient is a 77-year-old male with a past medical history significant for hypertension osteoarthritis sleep apnea reflux patient did have a BPH and self catheterize himself because of urine retention, presented to hospital after a fall with weakness he did have a positive UA and has been treated for a UTI also has significant diarrhea stool for C. difficile came back positive pro mpting this consultation. On today's evaluation that is 11/13/2023,the patient denies any fever or any chills, patient is breathing comfortably on room air, the patient denies chest pain shortness of breath and no significant cough, patient denies abdominal pain, no nausea vomiting still having diarrhea however the patient was not able to tell me how many times he has gone to the bathroom and I was unable to reach the RN taking care of this patient. Patient did have a white count of 5.5 creatinine 0.70 Objective - Vital Signs Vital signs: Vital Signs Temp 98.4 F 11/13/23 07:55 Pulse 84 11/13/23 07:55 Resp 18 11/13/23 07:55 BP 104/62 11/13/23 07:55 Pulse Ox 92 L 11/13/23 07:55 FiO2 Intake & Output 11/12/23 11/13/23 11/13/23 18:59 06:59 18:59 Intake Total 1050 184.333 76.333 Output Total 1000 2950 1000 Balance 50 -2765.667 -923.667 Weight 152.861 kg Intake: Intake, IV Titration 100 184.333 76.333 Amount Furosemide 100 mg In 100 184.333 76.333 Sodium Chloride 0.9% 90 ml @ 10 MG/HR 10 mls/hr IV .Q10H [facility] Rx#: [id number] Oral 950 Output: Urine 1000 2950 1000 Other: Voiding Method Indwelling Catheter Indwelling Catheter Indwelling Catheter # Bowel Movements 1 5 1 ABP, PAP, CO, CI - Last Documented Arterial Blood Pressure 73/52 - Exam GENERAL DESCRIPTION: An elderly male lying in bed in no distress RESPIRATORY SYSTEM: Unlabored breathing , decreased breath sounds at bases HEART: S1 S2 regular rate and rhythm , ABDOMEN: Soft , mild distention and tenderness EXTREMITIES: No edema feet - Labs CBC & Chem 7: 11/13/23 06:03 11/13/23 14:18 Labs: Abnormal Lab Results - Last 24 Hours (Table) 11/13/23 11/13/23 Range/Units 06:03 06:03 RBC 3.62 L (4.30-5.90) m/uL Hgb 12.0 L (13.0-17.5) gm/dL Hct 35.8 L (39.0-53.0) % Sodium 128 L (137-145) mmol/L Potassium 3.1 L (3.5-5.1) mmol/L BUN 28 H (9-20) mg/dL Glucose 111 H (74-99) mg/dL Calcium 7.8 L (8.4-10.2) mg/dL Total Protein 4.1 L (6.3-8.2) g/dL Albumin 2.2 L (3.5-5.0) g/dL Assessment and Plan (1) C. difficile colitis Current Visit: Yes Status: Acute Priority: Medium Code(s): A04.72 - ENTEROCOLITIS D/T CLOSTRIDIUM DIFFICILE, NOT SPCF RECUR SNOMED Code(s): 621746459 (2) Leukocytosis Current Visit: Yes Status: Acute Priority: Medium Code(s): D72.829 - ELEVATED WHITE BLOOD CELL COUNT, UNSPECIFIED SNOMED Code(s): 215880454 (3) Urinary tract infection Current Visit: Yes Status: Acute Priority: Medium Code(s): N39.0 - URINARY TRACT INFECTION, SITE NOT SPECIFIED SNOMED Code(s): 92538181 Plan: 1patient with a complicated history and this patient initially presented to the hospital with sepsis as the patient did have a fever elevated white count source likely UTI with urine culture finalized with Pseudomonas aeruginosa, patient did have a CT abdominal pelvis CT shows evidence of hydronephrosis and ureteral stone in this patient who is status post cystoscopy and ureteral stent placement patient is currently covered with the cefepime concerning for pyelonephritis/complicated UTI, for which the patient has received adequate cefepime 2patient C. difficile colitis patient medication has been adjusted to Dificid yesterday continue along with Questran and monitor clinical course closely Dictation was produced using [employer] dictation software. please excuse any grammatical, word or spelling errors. Time with Patient: Less than 30
[2023-11-13 20:19] LABS: ALT 16 U/L (4-49); AST 22 U/L (17-59); African American GFR (CKD) >90 (>60 ml/min/1.73 sqM); Albumin 2.2 g/dL (3.5-5.0); Albumin/Globulin Ratio 1.2; Alkaline Phosphatase 78 U/L (38-126); Anion Gap 3 mmol/L; Blood Urea Nitrogen 26 mg/dL (9-20); Calcium 7.7 mg/dL (8.4-10.2); Carbon Dioxide 28 mmol/L (22-30); Chloride 99 mmol/L (98-107); Globulin 1.8 g/dL; Glucose 182 mg/dL (74-99); Magnesium 1.8 mg/dL (1.6-2.3); Non-African American GFR(CKD) >90 (>60 ml/min/1.73 sqM); Potassium 3.3 mmol/L (3.5-5.1); Sodium 130 mmol/L (137-145); Total Bilirubin 0.3 mg/dL (0.2-1.3)
[2023-11-14 06:57] LABS: ALT 16 U/L (4-49); AST 24 U/L (17-59); African American GFR (CKD) >90 (>60 ml/min/1.73 sqM); Albumin 2.1 g/dL (3.5-5.0); Albumin/Globulin Ratio 1.2; Alkaline Phosphatase 62 U/L (38-126); Anion Gap 0 mmol/L; Blood Urea Nitrogen 24 mg/dL (9-20); Calcium 7.7 mg/dL (8.4-10.2); Carbon Dioxide 29 mmol/L (22-30); Chloride 99 mmol/L (98-107); Globulin 1.8 g/dL; Glucose 116 mg/dL (74-99); Magnesium 1.7 mg/dL (1.6-2.3); Non-African American GFR(CKD) >90 (>60 ml/min/1.73 sqM); Potassium 3.5 mmol/L (3.5-5.1); Sodium 128 mmol/L (137-145); Total Bilirubin 0.6 mg/dL (0.2-1.3); Total Protein 3.9 g/dL (6.3-8.2)
--- NOTE | 2023-11-14 11:21 | P.PN ---
Subjective Patient is seen in follow-up for hyponatremia. Currently on Lasix drip. Sodium level stable. Nonoliguric. No vomiting or diarrhea. Oral intake fair. Vital signs are stable. General: No acute distress. HEENT: Head exam is unremarkable. LUNGS: No audible rhonchi or wheezes. HEART: Rate and Rhythm are regular. ABDOMEN: Obese, nontender. EXTREMITITES: 2+ edema. Objective - Vital Signs Vital signs: Vital Signs Temp 97.9 F 11/14/23 08:00 Pulse 86 11/14/23 08:00 Resp 18 11/14/23 08:00 BP 99/64 11/14/23 08:00 Pulse Ox 93 L 11/14/23 08:00 FiO2 Intake & Output 11/13/23 11/14/23 11/14/23 18:59 06:59 18:59 Intake Total 76.333 878.500 Output Total 3300 1700 Balance -3223.667 -821.500 Weight 152.861 kg Intake: Intake, IV Titration 76.333 178.500 Amount Furosemide 100 mg In 76.333 178.500 Sodium Chloride 0.9% 90 ml @ 10 MG/HR 10 mls/hr IV .Q10H [facility] Rx#: [id number] Oral 700 Output: Urine 3300 1700 Other: Voiding Method Indwelling Catheter Indwelling Catheter # Bowel Movements 6 ABP, PAP, CO, CI - Last Documented Arterial Blood Pressure 73/52 - Labs CBC & Chem 7: 11/13/23 06:03 11/14/23 05:52 Labs: Abnormal Lab Results - Last 24 Hours (Table) 11/13/23 11/13/23 11/14/23 Range/Units 14:18 19:40 05:52 Sodium 128 L 130 L 128 L (137-145) mmol/L Potassium 3.2 L 3.3 L (3.5-5.1) mmol/L BUN 27 H 26 H 24 H (9-20) mg/dL Creatinine 0.65 L (0.66-1.25) mg/dL Glucose 172 H 182 H 116 H (74-99) mg/dL Calcium 7.4 L 7.7 L 7.7 L (8.4-10.2) mg/dL Total Protein 3.8 L 4.0 L 3.9 L (6.3-8.2) g/dL Albumin 2.0 L 2.2 L 2.1 L (3.5-5.0) g/dL Assessment and Plan Plan: Assessment: 1. Hypervolemic hyponatremia. Improved with diuresis. TSH normal. Urine sodium less than 20 and urine osmolality 512. Sodium level stable at 128 today. 2. Volume overload. Improving with diuresis. 3. Pseudomonas UTI s/p antibiotics. 4. C. difficile colitis on Dificid. ID following. 5. Acute on chronic diastolic CHF. 6. Morbid obesity. 7. Elevated kappa light chains. Seen by hematology. 8. Metabolic acidosis from IV fluids and GI losses. Resolved. 9. Right-sided hydronephrosis due to UPJ calculus status post cystoscopy with right ureteral stent placement. Urology following. 10. Hypokalemia from diuresis. Replaced. Better. Plan: Status post IV albumin given November 11, 2023. Maintain Lasix drip at 10 cc an hour. Will benefit from SGLT2 inhibitor. Hold off for now due to UTI this admission. Low-salt diet and 1500 cc fluid restriction. Replace potassium. Repeat labs in the morning.
[2023-11-14] MEDS: POTASSIUM CHLORIDE ER 20 MEQ TAB.ER PO STA (11:50)
--- NOTE | 2023-11-14 13:47 | P.PN ---
Subjective Progress Note Date: 11/14/23 Principal diagnosis: Reason for follow-up is C. difficile colitis UTI and leukocytosis Patient is a 77-year-old male with a past medical history significant for hypertension osteoarthritis sleep apnea reflux patient did have a BPH and self catheterize himself because of urine retention, presented to hospital after a fall with weakness he did have a positive UA and has been treated for a UTI also has significant diarrhea stool for C. difficile came back positive pro mpting this consultation. On today's evaluation that is 11/14/2023,the patient remains to be afebrile, patient is on room air not requiring supplemental oxygen and denies any shortness of breath no chest pain or cough.Patient denies having any nausea or vomiting, no abdominal pain and did have 2 loose stools since morning per the nursing staff. No CBC was done today his creatinine 0.66 Objective - Vital Signs Vital signs: Vital Signs Temp 98.2 F 11/14/23 02:53 Pulse 86 11/14/23 02:53 Resp 16 11/14/23 02:53 BP 95/56 11/14/23 02:53 Pulse Ox 92 L 11/14/23 02:53 FiO2 Intake & Output 11/13/23 11/14/23 11/14/23 18:59 06:59 18:59 Intake Total 76.333 878.500 Output Total 3300 1700 Balance -3223.667 -821.500 Weight 152.861 kg Intake: Intake, IV Titration 76.333 178.500 Amount Furosemide 100 mg In 76.333 178.500 Sodium Chloride 0.9% 90 ml @ 10 MG/HR 10 mls/hr IV .Q10H [facility] Rx#: [id number] Oral 700 Output: Urine 3300 1700 Other: Voiding Method Indwelling Catheter Indwelling Catheter # Bowel Movements 6 ABP, PAP, CO, CI - Last Documented Arterial Blood Pressure 73/52 - Exam GENERAL DESCRIPTION: An elderly male lying in bed in no distress RESPIRATORY SYSTEM: Unlabored breathing , decreased breath sounds at bases HEART: S1 S2 regular rate and rhythm , ABDOMEN: Soft , mild distention and tenderness Exam completed with the help of [employer] - Labs CBC & Chem 7: 11/13/23 06:03 11/14/23 05:52 Labs: Abnormal Lab Results - Last 24 Hours (Table) 11/13/23 11/13/2324 Range/Units 14:18 19:40 05:52 Sodium 128 L 130 L 128 L (137-145) mmol/L Potassium 3.2 L 3.3 L (3.5-5.1) mmol/L BUN 27 H 26 H 24 H (9-20) mg/dL Creatinine 0.65 L (0.66-1.25) mg/dL Glucose 172 H 182 H 116 H (74-99) mg/dL Calcium 7.4 L 7.7 L 7.7 L (8.4-10.2) mg/dL Total Protein 3.8 L 4.0 L 3.9 L (6.3-8.2) g/dL Albumin 2.0 L 2.2 L 2.1 L (3.5-5.0) g/dL Assessment and Plan (1) C. difficile colitis Current Visit: Yes Status: Acute Priority: Medium Code(s): A04.72 - ENTEROCOLITIS D/T CLOSTRIDIUM DIFFICILE, NOT SPCF RECUR SNOMED Code(s): 883204644 (2) Leukocytosis Current Visit: Yes Status: Acute Priority: Medium Code(s): D72.829 - ELEVATED WHITE BLOOD CELL COUNT, UNSPECIFIED SNOMED Code(s): 756216718 (3) Urinary tract infection Current Visit: Yes Status: Acute Priority: Medium Code(s): N39.0 - URINARY TRACT INFECTION, SITE NOT SPECIFIED SNOMED Code(s): 96454382 Plan: 1patient with a complicated history and this patient initially presented to the hospital with sepsis as the patient did have a fever elevated white count source likely UTI with urine culture finalized with Pseudomonas aeruginosa, patient did have a CT abdominal pelvis CT shows evidence of hydronephrosis and ureteral stone in this patient who is status post cystoscopy and ureteral stent placement patient is currently covered with the cefepime concerning for pyelonephritis/complicated UTI, for which the patient has received adequate cefepime 2patient C. difficile colitis currently on Dificid and Questran, monitor clinical course closely, avoid antimotility agents Dictation was produced using [employer] dictation software. please excuse any grammatical, word or spelling errors. Time with Patient: Less than 30
--- NOTE | 2023-11-14 14:12 | P.PN ---
Subjective Progress Note Date: 11/14/23 11/09/2023, the patient is being seen for a follow-up. Morbidly obese 77-year-old male patient with a body mass index of 59.7 was hospitalized for difficulty with mobility, profound weakness and suspected UTI. Subsequently, the patient was found to have Pseudomonas aeruginosa in the urine suspecting an underlying gram-negative infection. The patient has had is well-developed state of colitis and diarrhea. He is currently being treated with oral vancomycin. He is currently at a dose of 5 mg p.o. 4 times daily. He is also on Questran. He is currently afebrile. He is on pulse oxing 95% on room air oxygen. His CAT scan of the abdomen and pelvis that was done on 11/01/2023 showed evidence of bartlett colitis with severe wall thickening along the right side of the colon. There is also worsening generalized anasarca and he was also noted to have a ureteral stent on the right with a right renal stone measuring 1.1 cm in size. Lung bases are essentially clear. Most recent blood work shows a WC count 10.6 hemoglobin 15 and a platelet count of 268. His sodium is at 128 with a BUN of 34 and a creatinine of 0.7 and serum bicarb is down to 14. Is 110. The patient is currently on oral bicarb 650 mg p.o. 3 times daily. He remains on oral vancomycin and IV Flagyl. On today's evaluation of 11/10/2023, the patient is being seen for a follow-up. The patient is still having some liquidy loose diarrhea. No significant abdominal pain. The patient remains on oral vancomycin and IV Flagyl. He is on room air oxygen. No signs of any significant respiratory distress. No nausea. No emesis. Blood work shows a WBC count of 10.6 from yesterday with a hemoglobin of 13. Sodium level is at 127 and a serum bicarb is at 17 and the patient has a BUN of 33 with a creatinine of 0.6 and a potassium level of 4.5. BUN is at 33 with a creatinine of 0.6. No other significant events overnight. The patient remains on oral bicarb. Patient remains in normal sinus rhythm 130 cc an hour. Room air oxygen with a pulse ox of 93%. Calm and comfortable. No fever. On 11/11/2023, this 77-year-old male patient is being seen for a follow-up. He had episode of diarrhea a total of 3 overnight. Remains on oral vancomycin. No abdominal discomfort. No nausea or emesis. Hemodynamically stable. White cell count is down to 8.6 with a hemoglobin 12.4, sodium levels at 125, BUN 33 with a creatinine of 0.6. Remains on oral bicarb supplements and serum bicarb is currently at 16. Furthermore, the patient was seen by nephrology regarding his ongoing hyponatremia. Recommendations were to stop the IV fluids and the patient was started on Lasix drip at 10 mg an hour as the patient was found to be in hypervolemic hyponatremia and volume overload. On 11/12/2023, seen the patient for a follow-up. The patient is doing well. Still having episodes of loose diarrhea. Currently on Lasix drip at 10 mg an hour and the patient has been negative fluid balance and he continues to have consider amount of edema lower extremities. Overall close balance is -5 L for today and 1.9 L for yesterday. Blood work from today shows a BUN of 29 with a creatinine of 0.7. Serum bicarb is at 17 and sodium levels at 131. He remains to be on room air oxygen with a pulse ox of 93%. Mobility has been very limited due to his morbid obese body habitus. He has previous history of pseudomonal UTI that was treated with IV antibiotics. Garcia catheter is draining clear liquid urine at this point in time. He has also had a previous right ureteral stent insertion on 10/30/2023 to relieve the obstruction at the UPJ junction. . On 11/13/2023, the patient remains on Lasix drip. Doing well. Urine output is over 5 L over the past 24 hours. No nausea or emesis or abdominal pain. Still has lower extremity edema. BUN is 28 with a creatinine of 0.6. Sodium levels at 128. White cell count is 5.5 with a hemoglobin 12.0. Remains on Lasix drip at 10 mg an hour. Oral vancomycin has been discontinued by infectiou s disease and the patient was switched to Dificid 200 mg p.o. twice a day. He remains on Questran 4 g twice daily. 11/14/2023, patient is being seen for a follow-up. No new complaints. Continues to be on diuretics the patient remains on Lasix drip. Fluid balance has been - 2.7 L over the past 24 hours and the patient will be kept on diuretics. Patient is currently on Dificid regarding C. difficile colitis. No fever. No nausea or emesis. He had 2 loose stools since morning. No significant electrolyte abnormalities. Sodium is at 128 with a BUN of 24 and a creatinine of 0.66. Objective - Vital Signs Vital signs: Vital Signs Temp 97.9 F 11/14/23 08:00 Pulse 86 11/14/23 08:00 Resp 18 11/14/23 08:00 BP 99/64 11/14/23 08:00 Pulse Ox 93 L 11/14/23 08:00 FiO2 Intake & Output 11/13/23 11/14/23 11/14/23 18:59 06:59 18:59 Intake Total 76.333 878.500 Output Total 3300 1700 Balance -3223.667 -821.500 Weight 152.861 kg Intake: Intake, IV Titration 76.333 178.500 Amount Furosemide 100 mg In 76.333 178.500 Sodium Chloride 0.9% 90 ml @ 10 MG/HR 10 mls/hr IV .Q10H [facility] Rx#: [id number] Oral 700 Output: Urine 3300 1700 Other: Voiding Method Indwelling Catheter Indwelling Catheter # Bowel Movements 6 ABP, PAP, CO, CI - Last Documented Arterial Blood Pressure 73/52 - Exam No acute distress, oriented 3. No respiratory distress. Currently on room air. Morbidly obese with a BMI 59.7 HEENT examination is grossly unremarkable. Mucous membranes are moist. No oral lesions. Neck supple. Full range of motion. No adenopathy thyromegaly or neck vein distention. Cardiovascular examination reveals regular rhythm rate. S1-S2 normal. No S3 or S4. No discernible murmur noted. Heart sounds are distant. Lungs reveal clear breath sounds. Breath sounds are equal bilaterally. No adventitious lung sounds including wheezes rhonchi or crackles. Abdomen soft with bowel sounds. No masses or tenderness noted. Extremities are intact. No cyanosis clubbing or edema. Skin is without rash or lesion. Neurologic examination is brief but nonfocal. - Labs CBC & Chem 7: 11/13/23 06:03 11/14/23 05:52 Labs: Abnormal Lab Results - Last 24 Hours (Table) 11/13/23 11/13/2324 Range/Units 14:18 19:40 05:52 Sodium 128 L 130 L 128 L (137-145) mmol/L Potassium 3.2 L 3.3 L (3.5-5.1) mmol/L BUN 27 H 26 H 24 H (9-20) mg/dL Creatinine 0.65 L (0.66-1.25) mg/dL Glucose 172 H 182 H 116 H (74-99) mg/dL Calcium 7.4 L 7.7 L 7.7 L (8.4-10.2) mg/dL Total Protein 3.8 L 4.0 L 3.9 L (6.3-8.2) g/dL Albumin 2.0 L 2.2 L 2.1 L (3.5-5.0) g/dL Assessment and Plan Plan: Acute sepsis secondary to C. difficile colitis and evidence of pancolitis, currently on IV Flagyl and oral vancomycin. Diarrhea has subsided, and the patient is still on treatment regarding C. difficile colitis. Patient is cu rrently on Dificid. Hemodynamically stable. Non-anion gap metabolic acidosis currently on bicarb replacement orally, serum bicarb level is improved and normalized Hypervolemic hyponatremia, started on Lasix drip and the patient responding nicely with a total of 5 L urine output over the past 24 hours. Sodium levels at 128. Renal function stable. Pseudomonal urinary tract infection plan related to chronic indwelling Garcia catheter, previous ureteral stent insertion for renal stone at the right UPJ. BPH Renal stone and the patient has a a right ureteral stent. Renal function stable for now Leukocytosis, improving History of congestive heart failure with preserved ejection fraction. Obstructive uropathy and hydronephrosis requiring cystoscopy and right ureteral stent insertion on 10/30/23. Morbid obesity. History of obstructive sleep apnea. Generalized weakness, multifactorial. Generalized anasarca Hyponatremia Acute kidney injury, resolved Morbid obesity with a BMI of 59.7 Plan: Patient currently on room air oxygen Will continue oral Dificid and Questran Continue Lasix drip at 10 mg an hour and the patient is in significant negative fluid balance. Continues to have significant amount of edema in lower extremities bilaterally Monitor sodium level Monitor the serum bicarb level and the patient is currently on oral bicarb supplements, serum bicarb level is a stable for now. Infectious disease on the case regarding antibiotic management regarding the C. difficile colitis Continue losartan CPAP overnight Nephrology and infectious disease are both on the case.
--- NOTE | 2023-11-14 14:32 | P.PN ---
Subjective Progress Note Date: 11/14/23 Hospital Course: Patient is a pleasant 77-year-old male with a past medical history of congestive systolic heart failure with previously known EF of 40 to 45%, hypertension, GERD, obstructive sleep apnea, BPH requiring frequent straight catheterizations and at times Garcia catheter, chronic back pain with bilateral lower extremity neuropathies and restless legs, macular degeneration, and bilateral cataract removal with lens implants. He presented to the emergency department on 10/26/2023 with a chief complaint of generalized weakness. Vital signs in the emergency department show blood pressure 143/74, heart rate 86, respiratory rate 18, temp 99.6, and SpO2 of 95% on room air, shortly after arrival temp elevated as high as 101.3 F. EKG completed showing sinus mechanism at 86 bpm. Chest x- ray completed showing mild cardiomegaly with overall hazy densities related to overlying soft tissue/body habitus. CBC showing leukocytosis with WBC count of 14.4 and macrocytosis with MCV of 100.2. BMP showing hyponatremia with sodium of 134 otherwise normal findings. Lactic acid was 1.3. Magnesium 1.8. Liver profile unremarkable. Urinalysis contaminated specimen but appears positive for infection, urine kappa light 6.17 and urine free lambda light 0.68. Free kappa LC quant was 2.06. Influenza A, influenza B, RSV, and COVID were negative. Patient was started on IV antibiotics with Rocephin admitted under our services for acute cystitis and generalized weakness. Echocardiogram was completed showing preserved EF of 55% and mildly increased left ventricular wall thickness. Urine culture positive for Pseudomonas aeruginosa. Blood culture showing no growth to date. C. difficile positive. Started on oral vancomycin in addition to his cefepime for treatment of Pseudomonas UTI. Underwent right ureteral stent insertion by urology. Patient's condition worsened and WBC count significantly increasing concerning for fulminant C. difficile. Patient was started on IV Flagyl in addition to oral vancomycin and a CT abdomen and pelvis was completed. CT abdomen and pelvis revealed severe pancolitis with colonic distention up to 7.5 cm with no pneumatosis or free air noted at this time. Consult was placed to general surgery infectious disease. Patient was started on vancomycin enemas and fidaxomicin in addition to oral vancomycin and IV Flagyl. He was evaluated by general surgery team who stated that taking patient to the OR could result in significant morbidity and/or mortality and recommending continuation of appropriate antibiotics and resuscitation measures at this time. 10/31/2023 patient was transferred to the ICU and an arterial line was placed for close monitoring of hemodynamic status. Patient's condition improving and he was transferred back to stepdown unit on 11/02/2023. Garcia catheter still in place. Fecal management system discontinued. Patient does have insurance Auth. Does seem to be a little bit more dehydrated, still having frequent bowel movements. Nephrology was consulted, patient is now on Lasix drip, sodium increasing. Also status post IV albumin. Vancomycin discontinued, started on fidaxomicin. Subjective: Patient seen and examined at bedside. No acute events overnight. Still having frequent bowel movements, had 2 today, slightly slowing down. Urine catheter in place. Pertinent positives and negatives as discussed above, a complete review of systems was performed and all other systems are negative. Vitals Signs Reviewed. General: Nontoxic, no distress, appears at stated age, morbidly obese, generalized anasarca Derm: Warm, dry Head: Atraumatic, normocephalic, symmetric Eyes: EOMI, no lid lag, anicteric sclera Mouth: No lip lesion, mucus membranes moist Cardiovascular: S1S2 reg, no murmur Lungs: CTA bilateral, no rhonchi, no rales, no accessory muscle use Abdominal: Soft, nontender to palpation, no guarding, no appreciable organomegaly Ext: No gross muscle atrophy, no contractures Neuro: CN II-XI grossly intact, no focal neuro deficits Psych: Alert, oriented, appropriate affect Data Reviewed Today: Pertinent Labs: Sodium 128, potassium 3.5, creatinine 0.66, albumin 2.1 Imaging: No new imaging Assessment and Plan: Hyponatremia, hypervolemic Acute on chronic diastolic CHF exacerbation Anasarca Severe protein calorie malnutrition Non-anion gap metabolic acidosis secondary to diarrhea Hypokalemia, resolved -Nephrology note reviewed, continue on Lasix drip at 10 mg/hr, monitor electrolytes and renal function, Consider SGLT2 inhibitor in the future -Status post IV albumin -Continue oral sodium bicarb 650 3 times daily -needs increased in his protein intake, currently on oral supplements Sepsis secondary to Pseudomonas UTI, present on admission Hydronephrosis with renal and ureteral calculus obstruction status post ureteral stent Hospital course complicated by fulminant C. difficile infection History of BPH -ID note reviewed continue fidaxomicin 200 twice daily, oral vancomycin di scontinued, continue cholestyramine 4 g twice daily -Completed course of IV cefepime and IV Flagyl -Urology following, Garcia catheter remained until patient gets home, may resume intermittent catheterization at that time, ureteral stent to be taken out in approximately 6 weeks when patient will undergo cystoscopy and removal of bladder calculus and right renal calculus. -Continue doxazosin 8 mg nightly -General surgery: Okay to be discharged -Chef De [employer]roid note reviewed, continue current therapy Acute kidney injury, resolved Severe leukocytosis resolved History of hypertension Hypotension resolved -Continue losartan 25 daily -Continue aspirin 325 mg daily. Elevated light chains Low QRS voltage on EKG -Urine kappa light 6.17 and urine free lambda light 0.68. Free kappa LC quant was 2.06. -Hematology evaluated, recommend follow-up in their clinic in 3 months to repeat paraproteinemia labs Obstructive sleep apnea -Continue CPAP nightly and while napping. Morbid obesity, class III with BMI 52.8 kg/m -Recommend outpatient structured weight management program. Narcolepsy? -Continue home modafinil 300 mg daily DVT ppx: Subcu heparin Code status: Full code Anticipated discharge place: Pending clinical course Anticipated discharge time: Pending clinical course Objective - Vital Signs Vital signs: Vital Signs Temp 97.9 F 11/14/23 08:00 Pulse 86 11/14/23 08:00 Resp 18 11/14/23 08:00 BP 99/64 11/14/23 08:00 Pulse Ox 93 L 11/14/23 08:00 FiO2 Intake & Output 11/13/23 11/14/23 11/14/23 18:59 06:59 18:59 Intake Total 76.333 878.500 Output Total 3300 1700 Balance -3223.667 -821.500 Weight 152.861 kg Intake: Intake, IV Titration 76.333 178.500 Amount Furosemide 100 mg In 76.333 178.500 Sodium Chloride 0.9% 90 ml @ 10 MG/HR 10 mls/hr IV .Q10H [facility] Rx#: [id number] Oral 700 Output: Urine 3300 1700 Other: Voiding Method Indwelling Catheter Indwelling Catheter # Bowel Movements 6 ABP, PAP, CO, CI - Last Documented Arterial Blood Pressure 73/52 - Labs CBC & Chem 7: 11/13/23 06:03 11/14/23 05:52 Labs: Abnormal Lab Results - Last 24 Hours (Table) 11/13/23 11/13/23 11/14/23 Range/Units 14:18 19:40 05:52 Sodium 128 L 130 L 128 L (137-145) mmol/L Potassium 3.2 L 3.3 L (3.5-5.1) mmol/L BUN 27 H 26 H 24 H (9-20) mg/dL Creatinine 0.65 L (0.66-1.25) mg/dL Glucose 172 H 182 H 116 H (74-99) mg/dL Calcium 7.4 L 7.7 L 7.7 L (8.4-10.2) mg/dL Total Protein 3.8 L 4.0 L 3.9 L (6.3-8.2) g/dL Albumin 2.0 L 2.2 L 2.1 L (3.5-5.0) g/dL
[2023-11-14] MEDS: ONDANSETRON 4 MG/2 ML VIAL IVP PRN (16:11)
--- NOTE | 2023-11-15 10:42 | P.PN ---
Subjective Patient is seen in follow-up for hyponatremia. Currently on Lasix drip. Sodium level stable as of yesterday. Nonoliguric. No vomiting or diarrhea. Oral intake fair. Vital signs are stable. General: No acute distress. HEENT: Head exam is unremarkable. LUNGS: No audible rhonchi or wheezes. HEART: Rate and Rhythm are regular. ABDOMEN: Obese, nontender. EXTREMITITES: 2+ edema. Objective - Vital Signs Vital signs: Vital Signs Temp 98.4 F 11/15/23 07:47 Pulse 84 11/15/23 07:47 Resp 18 11/15/23 07:47 BP 101/64 11/15/23 07:47 Pulse Ox 90 L 11/15/23 07:47 FiO2 Intake & Output 11/14/23 11/15/23 11/15/23 18:59 06:59 18:59 Intake Total 1097.833 398.333 Output Total 875 1875 Balance 222.833 -1476.667 Intake: Intake, IV Titration 97.833 98.333 Amount Furosemide 100 mg In 97.833 98.333 Sodium Chloride 0.9% 90 ml @ 10 MG/HR 10 mls/hr IV .Q10H [facility] Rx#: [id number] Oral 1000 300 Output: Urine 875 1875 Other: Voiding Method Indwelling Catheter # Bowel Movements 6 4 ABP, PAP, CO, CI - Last Documented Arterial Blood Pressure 73/52 - Labs CBC & Chem 7: 11/13/23 06:03 11/14/23 05:52 Assessment and Plan Plan: Assessment: 1. Hypervolemic hyponatremia. Improved with diuresis. TSH normal. Urine sodium less than 20 and urine osmolality 512. Sodium level stable at 128 yesterday. 2. Volume overload. Improving with diuresis. 3. Pseudomonas UTI s/p antibiotics. 4. C. difficile colitis on Dificid. ID following. 5. Acute on chronic diastolic CHF. 6. Morbid obesity. 7. Elevated kappa light chains. Seen by hematology. 8. Metabolic acidosis from IV fluids and GI losses. Resolved. 9. Right-sided hydronephrosis due to UPJ calculus status post cystoscopy with right ureteral stent placement. Urology following. 10. Hypokalemia from diuresis. Replaced. Plan: Status post IV albumin given November 11, 2023. Maintain Lasix drip at 10 cc an hour. Will benefit from SGLT2 inhibitor. Hold off for now due to UTI this admission. Low-salt diet and 1500 cc fluid restriction. Replace potassium as needed. Morning labs pending. Check echocardiogram.
[2023-11-15 10:43] LABS: Magnesium 1.8 mg/dL (1.5-2.4)
[2023-11-15 10:55] LABS: Basophils # (A) 0.1 k/uL (0-0.2); Basophils % (A) 1 %; Eosinophils # (A) 0.2 k/uL (0-0.7); Eosinophils % (A) 3 %; HCT 36.7 % (39.0-53.0); HGB 11.6 gm/dL (13.0-17.5); Lymphocytes % (A) 18 %; MCH 32.2 pg (25.0-35.0); MCHC 31.6 g/dL (31.0-37.0); Macrocytosis Slight; Monocytes # (A) 0.4 k/uL (0-1.0); Monocytes % (A) 8 %; Neutrophils # (A) 3.7 k/uL (1.3-7.7); Neutrophils % (A) 68 %; Platelet Count 313 k/uL (150-450); RDW 14.5 % (11.5-15.5); WBC 5.5 k/uL (3.8-10.6)
[2023-11-15 12:05] LABS: BUN/Creat Ratio 27.86 Ratio (12.00-20.00); Blood Urea Nitrogen 19.5 mg/dL (9.0-27.0); Calcium 7.7 mg/dL (8.7-10.3); Carbon Dioxide 29.5 mmol/L (21.6-31.8); Chloride 96 mmol/L (96-109); Glucose 118 mg/dL (70-110); Potassium 3.3 mmol/L (3.5-5.5); Sodium 134 mmol/L (135-145)
--- NOTE | 2023-11-15 13:36 | P.PN ---
Subjective Progress Note Date: 11/15/23 Hospital Course: Patient is a pleasant 77-year-old male with a past medical history of congestive systolic heart failure with previously known EF of 40 to 45%, hypertension, GERD, obstructive sleep apnea, BPH requiring frequent straight catheterizations and at times Garcia catheter, chronic back pain with bilateral lower extremity neuropathies and restless legs, macular degeneration, and bilateral cataract removal with lens implants. He presented to the emergency department on 10/26/2023 with a chief complaint of generalized weakness. Vital signs in the emergency department show blood pressure 143/74, heart rate 86, respiratory rate 18, temp 99.6, and SpO2 of 95% on room air, shortly after arrival temp elevated as high as 101.3 F. EKG completed showing sinus mechanism at 86 bpm. Chest x- ray completed showing mild cardiomegaly with overall hazy densities related to overlying soft tissue/body habitus. CBC showing leukocytosis with WBC count of 14.4 and macrocytosis with MCV of 100.2. BMP showing hyponatremia with sodium of 134 otherwise normal findings. Lactic acid was 1.3. Magnesium 1.8. Liver profile unremarkable. Urinalysis contaminated specimen but appears positive for infection, urine kappa light 6.17 and urine free lambda light 0.68. Free kappa LC quant was 2.06. Influenza A, influenza B, RSV, and COVID were negative. Patient was started on IV antibiotics with Rocephin admitted under our services for acute cystitis and generalized weakness. Echocardiogram was completed showing preserved EF of 55% and mildly increased left ventricular wall thickness. Urine culture positive for Pseudomonas aeruginosa. Blood culture showing no growth to date. C. difficile positive. Started on oral vancomycin in addition to his cefepime for treatment of Pseudomonas UTI. Underwent right ureteral stent insertion by urology. Patient's condition worsened and WBC count significantly increasing concerning for fulminant C. difficile. Patient was started on IV Flagyl in addition to oral vancomycin and a CT abdomen and pelvis was completed. CT abdomen and pelvis revealed severe pancolitis with colonic distention up to 7.5 cm with no pneumatosis or free air noted at this time. Consult was placed to general surgery infectious disease. Patient was started on vancomycin enemas and fidaxomicin in addition to oral vancomycin and IV Flagyl. He was evaluated by general surgery team who stated that taking patient to the OR could result in significant morbidity and/or mortality and recommending continuation of appropriate antibiotics and resuscitation measures at this time. 10/31/2023 patient was transferred to the ICU and an arterial line was placed for close monitoring of hemodynamic status. Patient's condition improving and he was transferred back to stepdown unit on 11/02/2023. Garcia catheter still in place. Fecal management system discontinued. Patient does have insurance Auth. Does seem to be a little bit more dehydrated, still having frequent bowel movements. Nephrology was consulted, patient is now on Lasix drip, sodium increasing. Also status post IV albumin. Vancomycin discontinued, started on fidaxomicin. Subjective: Patient seen and examined at bedside. No acute events overnight. Still having frequent bowel movements. Urine catheter in place. Pertinent positives and negatives as discussed above, a complete review of systems was performed and all other systems are negative. Vitals Signs Reviewed. General: Nontoxic, no distress, appears at stated age, morbidly obese, generalized anasarca Derm: Warm, dry Head: Atraumatic, normocephalic, symmetric Eyes: EOMI, no lid lag, anicteric sclera Mouth: No lip lesion, mucus membranes moist Cardiovascular: S1S2 reg, no murmur Lungs: CTA bilateral, no rhonchi, no rales, no accessory muscle use Abdominal: Soft, nontender to palpation, no guarding, no appreciable organomegaly Ext: No gross muscle atrophy, no contractures Neuro: CN II-XI grossly intact, no focal neuro deficits Psych: Alert, oriented, appropriate affect Data Reviewed Today: Pertinent Labs: WBC 5.5, hemoglobin 11.6, sodium 134, potassium 3.3, magnesium 1.8, creatinine 0.7 Imaging: No new imaging Assessment and Plan: Hyponatremia, hypervolemic, Resolving Acute on chronic diastolic CHF exacerbation Anasarca Severe protein calorie malnutrition Non-anion gap metabolic acidosis secondary to diarrhea Hypokalemia -Nephrology note reviewed, continue on Lasix drip at 10 mg/hr, monitor electrolytes and renal function, Consider SGLT2 inhibitor in the future, replace potassium -Status post IV albumin -Continue oral sodium bicarb 650 3 times daily -needs increased in his protein intake, currently on oral supplements Sepsis secondary to Pseudomonas UTI, present on admission Hydronephrosis with renal and ureteral calculus obstruction status post ureteral stent Hospital course complicated by fulminant C. difficile infection History of BPH -ID following continue fidaxomicin 200 twice daily, oral vancomycin discontinued, continue cholestyramine 4 g twice daily -Completed course of IV cefepime and IV Flagyl -Urology following, Garcia catheter remained until patient gets home, may resume intermittent catheterization at that time, ureteral stent to be taken out in approximately 6 weeks when patient will undergo cystoscopy and removal of bladder calculus and right renal calculus. -Continue doxazosin 8 mg nightly -General surgery: Okay to be discharged -[facility] note reviewed, continue current therapy Acute kidney injury, resolved Severe leukocytosis resolved History of hypertension Hypotension resolved -Continue losartan 25 daily -Continue aspirin 325 mg daily. Elevated light chains Low QRS voltage on EKG -Urine kappa light 6.17 and urine free lambda light 0.68. Free kappa LC quant was 2.06. -Hematology evaluated, recommend follow-up in their clinic in 3 months to repeat paraproteinemia labs Obstructive sleep apnea -Continue CPAP nightly and while napping. Morbid obesity, class III with BMI 52.8 kg/m -Recommend outpatient structured weight management program. Narcolepsy? -Continue home modafinil 300 mg daily DVT ppx: Subcu heparin Code status: Full code Anticipated discharge place: Pending clinical course Anticipated discharge time: Pending clinical course Objective - Vital Signs Vital signs: Vital Signs Temp 98.4 F 11/15/23 07:47 Pulse 84 11/15/23 07:47 Resp 18 11/15/23 07:47 BP 101/64 11/15/23 07:47 Pulse Ox 90 L 11/15/23 07:47 FiO2 Intake & Output 11/14/23 11/15/23 11/15/23 18:59 06:59 18:59 Intake Total 1097.833 398.333 88.5 Output Total 875 1875 Balance 222.833 -1476.667 88.5 Intake: Intake, IV Titration 97.833 98.333 88.5 Amount Furosemide 100 mg In 97.833 98.333 88.5 Sodium Chloride 0.9% 90 ml @ 10 MG/HR 10 mls/hr IV .Q10H [facility] Rx#: [id number] Oral 1000 300 Output: Urine 875 1875 Other: Voiding Method Indwelling Catheter # Bowel Movements 6 4 ABP, PAP, CO, CI - Last Documented Arterial Blood Pressure 73/52 - Labs CBC & Chem 7: 11/15/23 06:05 11/15/23 06:05 Labs: Abnormal Lab Results - Last 24 Hours (Table) 11/15/23 11/15/23 Range/Units 06:05 06:05 RBC 3.60 L (4.30-5.90) m/uL Hgb 11.6 L (13.0-17.5) gm/dL Hct 36.7 L (39.0-53.0) % MCV 102.0 H (80.0-100.0) fL Sodium 134 L (135-145) mmol/L Potassium 3.3 L (3.5-5.5) mmol/L BUN/Creatinine Ratio 27.86 H (12.00-20.00) Ratio Glucose 118 H (70-110) mg/dL Calcium 7.7 L (8.7-10.3) mg/dL
[2023-11-15] MEDS: POTASSIUM CHLORIDE ER 20 MEQ TAB.ER PO STA (14:12)
--- NOTE | 2023-11-15 14:53 | P.PN ---
Subjective Progress Note Date: 11/15/23 11/09/2023, the patient is being seen for a follow-up. Morbidly obese 77-year-old male patient with a body mass index of 59.7 was hospitalized for difficulty with mobility, profound weakness and suspected UTI. Subsequently, the patient was found to have Pseudomonas aeruginosa in the urine suspecting an underlying gram-negative infection. The patient has had is well-developed state of colitis and diarrhea. He is currently being treated with oral vancomycin. He is currently at a dose of 5 mg p.o. 4 times daily. He is also on Questran. He is currently afebrile. He is on pulse oxing 95% on room air oxygen. His CAT scan of the abdomen and pelvis that was done on 11/01/2023 showed evidence of bartlett colitis with severe wall thickening along the right side of the colon. There is also worsening generalized anasarca and he was also noted to have a ureteral stent on the right with a right renal stone measuring 1.1 cm in size. Lung bases are essentially clear. Most recent blood work shows a WC count 10.6 hemoglobin 15 and a platelet count of 268. His sodium is at 128 with a BUN of 34 and a creatinine of 0.7 and serum bicarb is down to 14. Is 110. The patient is currently on oral bicarb 650 mg p.o. 3 times daily. He remains on oral vancomycin and IV Flagyl. On today's evaluation of 11/10/2023, the patient is being seen for a follow-up. The patient is still having some liquidy loose diarrhea. No significant abdominal pain. The patient remains on oral vancomycin and IV Flagyl. He is on room air oxygen. No signs of any significant respiratory distress. No nausea. No emesis. Blood work shows a WBC count of 10.6 from yesterday with a hemoglobin of 13. Sodium level is at 127 and a serum bicarb is at 17 and the patient has a BUN of 33 with a creatinine of 0.6 and a potassium level of 4.5. BUN is at 33 with a creatinine of 0.6. No other significant events overnight. The patient remains on oral bicarb. Patient remains in normal sinus rhythm 130 cc an hour. Room air oxygen with a pulse ox of 93%. Calm and comfortable. No fever. On 11/11/2023, this 77-year-old male patient is being seen for a follow-up. He had episode of diarrhea a total of 3 overnight. Remains on oral vancomycin. No abdominal discomfort. No nausea or emesis. Hemodynamically stable. White cell count is down to 8.6 with a hemoglobin 12.4, sodium levels at 125, BUN 33 with a creatinine of 0.6. Remains on oral bicarb supplements and serum bicarb is currently at 16. Furthermore, the patient was seen by nephrology regarding his ongoing hyponatremia. Recommendations were to stop the IV fluids and the patient was started on Lasix drip at 10 mg an hour as the patient was found to be in hypervolemic hyponatremia and volume overload. On 11/12/2023, seen the patient for a follow-up. The patient is doing well. Still having episodes of loose diarrhea. Currently on Lasix drip at 10 mg an hour and the patient has been negative fluid balance and he continues to have consider amount of edema lower extremities. Overall close balance is -5 L for today and 1.9 L for yesterday. Blood work from today shows a BUN of 29 with a creatinine of 0.7. Serum bicarb is at 17 and sodium levels at 131. He remains to be on room air oxygen with a pulse ox of 93%. Mobility has been very limited due to his morbid obese body habitus. He has previous history of pseudomonal UTI that was treated with IV antibiotics. Garcia catheter is draining clear liquid urine at this point in time. He has also had a previous right ureteral stent insertion on 10/30/2023 to relieve the obstruction at the UPJ junction. . On 11/13/2023, the patient remains on Lasix drip. Doing well. Urine output is over 5 L over the past 24 hours. No nausea or emesis or abdominal pain. Still has lower extremity edema. BUN is 28 with a creatinine of 0.6. Sodium levels at 128. White cell count is 5.5 with a hemoglobin 12.0. Remains on Lasix drip at 10 mg an hour. Oral vancomycin has been discontinued by infectiou s disease and the patient was switched to Dificid 200 mg p.o. twice a day. He remains on Questran 4 g twice daily. 11/14/2023, patient is being seen for a follow-up. No new complaints. Continues to be on diuretics the patient remains on Lasix drip. Fluid balance has been - 2.7 L over the past 24 hours and the patient will be kept on diuretics. Patient is currently on Dificid regarding C. difficile colitis. No fever. No nausea or emesis. He had 2 loose stools since morning. No significant electrolyte abnormalities. Sodium is at 128 with a BUN of 24 and a creatinine of 0.66. 11/15/2023, patient remains on Lasix drip. Fluid balance is -1.4 L. BUN is 19 with a creatinine of 0.7 and sodium levels of 134. White cell count of 5.5 with a hemoglobin 9.6. Pulse ox is 93% room air oxygen. Hemodynamically stable. Medications remain unchanged. Currently on Lasix 10 mg an hour. Hyponatremia is resolving and his sodium level is up to 134. Remains on Dificid for C. difficile colitis. Remains on oral bicarb. Oral intake is adequate at this point in time. Abdomen is soft. Fecal management system has been discontinued. Objective - Vital Signs Vital signs: Vital Signs Temp 98.4 F 11/15/23 07:47 Pulse 84 11/15/23 07:47 Resp 18 11/15/23 07:47 BP 101/64 11/15/23 07:47 Pulse Ox 90 L 11/15/23 07:47 FiO2 Intake & Output 11/14/23 11/15/23 11/15/23 18:59 06:59 18:59 Intake Total 1097.833 398.333 88.5 Output Total 875 1875 Balance 222.833 -1476.667 88.5 Intake: Intake, IV Titration 97.833 98.333 88.5 Amount Furosemide 100 mg In 97.833 98.333 88.5 Sodium Chloride 0.9% 90 ml @ 10 MG/HR 10 mls/hr IV .Q10H [facility] Rx#: [id number] Oral 1000 300 Output: Urine 875 1875 Other: Voiding Method Indwelling Catheter # Bowel Movements 6 4 ABP, PAP, CO, CI - Last Documented Arterial Blood Pressure 73/52 - Exam No acute distress, oriented 3. No respiratory distress. Currently on room air. Morbidly obese with a BMI 59.7 HEENT examination is grossly unremarkable. Mucous membranes are moist. No oral lesions. Neck supple. Full range of motion. No adenopathy thyromegaly or neck vein distention. Cardiovascular examination reveals regular rhythm rate. S1-S2 normal. No S3 or S4. No discernible murmur noted. Heart sounds are distant. Lungs reveal clear breath sounds. Breath sounds are equal bilaterally. No adventitious lung sounds including wheezes rhonchi or crackles. Abdomen soft with bowel sounds. No masses or tenderness noted. Extremities are intact. No cyanosis clubbing or edema. Skin is without rash or lesion. Neurologic examination is brief but nonfocal. - Labs CBC & Chem 7: 11/15/23 06:05 11/15/23 06:05 Labs: Abnormal Lab Results - Last 24 Hours (Table) 11/15/23 11/15/23 Range/Units 06:05 06:05 RBC 3.60 L (4.30-5.90) m/uL Hgb 11.6 L (13.0-17.5) gm/dL Hct 36.7 L (39.0-53.0) % MCV 102.0 H (80.0-100.0) fL Sodium 134 L (135-145) mmol/L Potassium 3.3 L (3.5-5.5) mmol/L BUN/Creatinine Ratio 27.86 H (12.00-20.00) Ratio Glucose 118 H (70-110) mg/dL Calcium 7.7 L (8.7-10.3) mg/dL Assessment and Plan Plan: Acute sepsis secondary to C. difficile colitis and evidence of pancolitis, currently on IV Flagyl and oral vancomycin. Diarrhea has subsided, and the marj wilkinson is still on treatment regarding C. difficile colitis. Patient is currently on Dificid. Hemodynamically stable. Non-anion gap metabolic acidosis currently on bicarb replacement orally, serum b icarb level is improved and normalized Hypervolemic hyponatremia, started on Lasix drip and the patient responding nicely with a total of 5 L urine output over the past 24 hours. Sodium levels at 128. Renal function stable. Pseudomonal urinary tract infection plan related to chronic indwelling Garcia catheter, previous ureteral stent insertion for renal stone at the right UPJ. BPH Renal stone and the patient has a a right ureteral stent. Renal function stable for now Leukocytosis, improving History of congestive heart failure with preserved ejection fraction. Obstructive uropathy and hydronephrosis requiring cystoscopy and right ureteral stent insertion on 10/30/23. Morbid obesity. History of obstructive sleep apnea. Generalized weakness, multifactorial. Generalized anasarca Hyponatremia Acute kidney injury, resolved Morbid obesity with a BMI of 59.7 Plan: Patient currently on room air oxygen Will continue oral Dificid and Questran Continue Lasix drip at 10 mg an hour and the patient is in significant negative fluid balance. Continues to have significant amount of edema in lower extremities bilaterally Sodium level is improved Monitor the serum bicarb level and the patient is currently on oral bicarb supplements, serum bicarb level is a stable for now. Infectious disease on the case regarding antibiotic management regarding the C. difficile colitis Continue losartan CPAP overnight Nephrology and infectious disease are both on the case. Pulmonary service will sign off
[2023-11-16 06:08] LABS: African American GFR (CKD) >90 (>60 ml/min/1.73 sqM); Anion Gap 3 mmol/L; Blood Urea Nitrogen 23 mg/dL (9-20); Calcium 7.7 mg/dL (8.4-10.2); Carbon Dioxide 33 mmol/L (22-30); Chloride 93 mmol/L (98-107); Glucose 111 mg/dL (74-99); Magnesium 1.8 mg/dL (1.6-2.3); Non-African American GFR(CKD) 87 (>60 ml/min/1.73 sqM); Potassium 2.9 mmol/L (3.5-5.1); Sodium 129 mmol/L (137-145)
[2023-11-16] MEDS: POTASSIUM CHLORIDE ER 20 MEQ TAB.ER PO SCH (06:35)
[2023-11-16] MEDS: POTASSIUM CHLORIDE 20 MEQ in WATER FOR INJECTION 1 100ML.BAG IVPB ONE (06:41)
--- NOTE | 2023-11-16 11:18 | P.PN ---
Subjective Patient is seen in follow-up for hyponatremia. Currently on Lasix drip. Sodium level was up to 134 yesterday and 129 today. Nonoliguric. No vomiting or diarrhea. Oral intake fair. Vital signs are stable. General: No acute distress. HEENT: Head exam is unremarkable. LUNGS: No audible rhonchi or wheezes. HEART: Rate and Rhythm are regular. ABDOMEN: Obese, nontender. EXTREMITITES: 2+ edema. Objective - Vital Signs Vital signs: Vital Signs Temp 97.9 F 11/16/23 08:00 Pulse 82 11/16/23 08:00 Resp 18 11/16/23 08:00 BP 94/61 11/16/23 08:00 Pulse Ox 90 L 11/16/23 08:00 FiO2 Intake & Output 11/15/23 11/16/23 11/16/23 18:59 06:59 18:59 Intake Total 151.0 100 600 Output Total 2100 1175 Balance -1949.0 -1075 600 Intake: Intake, IV Titration 151.0 100 Amount Furosemide 100 mg In 151.0 100 Sodium Chloride 0.9% 90 ml @ 10 MG/HR 10 mls/hr IV .Q10H [facility] Rx#: [id number] Oral 600 Output: Urine 2100 1175 Other: Voiding Method Indwelling Catheter Indwelling Catheter # Bowel Movements 4 6 ABP, PAP, CO, CI - Last Documented Arterial Blood Pressure 73/52 - Labs CBC & Chem 7: 11/15/23 06:05 11/16/23 05:27 Labs: Abnormal Lab Results - Last 24 Hours (Table) 11/15/23 11/16/23 Range/Units 06:05 05:27 Sodium 134 L 129 L (135-145) mmol/L Potassium 3.3 L 2.9 L (3.5-5.5) mmol/L Chloride 93 L (98-107) mmol/L Carbon Dioxide 33 H (22-30) mmol/L BUN 23 H (9-20) mg/dL BUN/Creatinine Ratio 27.86 H (12.00-20.00) Ratio Glucose 118 H 111 H (70-110) mg/dL Calcium 7.7 L 7.7 L (8.7-10.3) mg/dL Assessment and Plan Plan: Assessment: 1. Hypervolemic hyponatremia. Improved with diuresis. TSH normal. Urine sodium less than 20 and urine osmolality 512. Sodium level 129 today. 2. Volume overload. Improving with diuresis. 3. Pseudomonas UTI s/p antibiotics. 4. C. difficile colitis on Dificid. ID following. 5. Acute on chronic diastolic CHF. 6. Morbid obesity. 7. Elevated kappa light chains. Seen by hematology. 8. Metabolic acidosis from IV fluids and GI losses. Resolved. 9. Right-sided hydronephrosis due to UPJ calculus status post cystoscopy with right ureteral stent placement. Urology following. 10. Hypokalemia from diuresis. Plan: Status post IV albumin given November 11, 2023. Maintain Lasix drip at 10 cc an hour for another 24 hours. Will benefit from SGLT2 inhibitor. Hold off for now due to UTI this admission. Low-salt diet and 1500 cc fluid restriction. Replace potassium. Follow-up echocardiogram.
--- NOTE | 2023-11-16 12:40 | P.PN ---
Subjective Progress Note Date: 11/16/23 Hospital Course: Patient is a pleasant 77-year-old male with a past medical history of congestive systolic heart failure with previously known EF of 40 to 45%, hypertension, GERD, obstructive sleep apnea, BPH requiring frequent straight catheterizations and at times Garcia catheter, chronic back pain with bilateral lower extremity neuropathies and restless legs, macular degeneration, and bilateral cataract removal with lens implants. He presented to the emergency department on 10/26/2023 with a chief complaint of generalized weakness. Vital signs in the emergency department show blood pressure 143/74, heart rate 86, respiratory rate 18, temp 99.6, and SpO2 of 95% on room air, shortly after arrival temp elevated as high as 101.3 F. EKG completed showing sinus mechanism at 86 bpm. Chest x- ray completed showing mild cardiomegaly with overall hazy densities related to overlying soft tissue/body habitus. CBC showing leukocytosis with WBC count of 14.4 and macrocytosis with MCV of 100.2. BMP showing hyponatremia with sodium of 134 otherwise normal findings. Lactic acid was 1.3. Magnesium 1.8. Liver profile unremarkable. Urinalysis contaminated specimen but appears positive for infection, urine kappa light 6.17 and urine free lambda light 0.68. Free kappa LC quant was 2.06. Influenza A, influenza B, RSV, and COVID were negative. Patient was started on IV antibiotics with Rocephin admitted under our services for acute cystitis and generalized weakness. Echocardiogram was completed showing preserved EF of 55% and mildly increased left ventricular wall thickness. Urine culture positive for Pseudomonas aeruginosa. Blood culture showing no growth to date. C. difficile positive. Started on oral vancomycin in addition to his cefepime for treatment of Pseudomonas UTI. Underwent right ureteral stent insertion by urology. Patient's condition worsened and WBC count significantly increasing concerning for fulminant C. difficile. Patient was started on IV Flagyl in addition to oral vancomycin and a CT abdomen and pelvis was completed. CT abdomen and pelvis revealed severe pancolitis with colonic distention up to 7.5 cm with no pneumatosis or free air noted at this time. Consult was placed to general surgery infectious disease. Patient was started on vancomycin enemas and fidaxomicin in addition to oral vancomycin and IV Flagyl. He was evaluated by general surgery team who stated that taking patient to the OR could result in significant morbidity and/or mortality and recommending continuation of appropriate antibiotics and resuscitation measures at this time. 10/31/2023 patient was transferred to the ICU and an arterial line was placed for close monitoring of hemodynamic status. Patient's condition improving and he was transferred back to stepdown unit on 11/02/2023. Garcia catheter still in place. Fecal management system discontinued. Patient does have insurance Auth. Does seem to be a little bit more dehydrated, still having frequent bowel movements. Nephrology was consulted, patient is now on Lasix drip, sodium increasing. Also status post IV albumin. Vancomycin discontinued, started on fidaxomicin. Subjective: Patient seen and examined at bedside. No acute events overnight. Still having frequent bowel movements. Urine catheter in place. Pertinent positives and negatives as discussed above, a complete review of systems was performed and all other systems are negative. Vitals Signs Reviewed. General: Nontoxic, no distress, appears at stated age, morbidly obese, generalized anasarca Derm: Warm, dry Head: Atraumatic, normocephalic, symmetric Eyes: EOMI, no lid lag, anicteric sclera Mouth: No lip lesion, mucus membranes moist Cardiovascular: S1S2 reg, no murmur Lungs: CTA bilateral, no rhonchi, no rales, no accessory muscle use Abdominal: Soft, nontender to palpation, no guarding, no appreciable organomegaly Ext: No gross muscle atrophy, no contractures Neuro: CN II-XI grossly intact, no focal neuro deficits Psych: Alert, oriented, appropriate affect Data Reviewed Today: Pertinent Labs: Sodium 129, potassium 2.9, creatinine 0.82, magnesium 1.8 Imaging: No new imaging Assessment and Plan: Hyponatremia, hypervolemic Acute on chronic diastolic CHF exacerbation Anasarca Severe protein calorie malnutrition Non-anion gap metabolic acidosis secondary to diarrhea, resolved Hypokalemia -Nephrology note reviewed, continue on Lasix drip at 10 mg/hr for another 24 hours, monitor electrolytes and renal function, Consider SGLT2 inhibitor in the future, replace potassium -Status post IV albumin -Continue protein supplements oral Persistent diarrhea -Having close to 15 bowel movements 24 hours, repeat CT abdomen pelvis Sepsis secondary to Pseudomonas UTI, present on admission Hydronephrosis with renal and ureteral calculus obstruction status post ureteral stent Hospital course complicated by fulminant C. difficile infection History of BPH -ID following continue fidaxomicin 200 twice daily, oral vancomycin discontinued, continue cholestyramine 4 g twice daily -Completed course of IV cefepime and IV Flagyl -Urology following, Garcia catheter remained until patient gets home, may resume intermittent catheterization at that time, ureteral stent to be taken out in approximately 6 weeks when patient will undergo cystoscopy and removal of bladder calculus and right renal calculus. -Continue doxazosin 8 mg nightly -General surgery: Okay to be discharged -Machine Dyer note reviewed, continue current therapy Acute kidney injury, resolved Severe leukocytosis resolved History of hypertension Hypotension resolved -Continue losartan 25 daily -Continue aspirin 325 mg daily. Elevated light chains Low QRS voltage on EKG -Urine kappa light 6.17 and urine free lambda light 0.68. Free kappa LC quant was 2.06. -Hematology evaluated, recommend follow-up in their clinic in 3 months to repeat paraproteinemia labs Obstructive sleep apnea -Continue CPAP nightly and while napping. Morbid obesity, class III with BMI 52.8 kg/m -Recommend outpatient structured weight management program. Narcolepsy? -Continue home modafinil 300 mg daily DVT ppx: Subcu heparin Code status: Full code Anticipated discharge place: Pending clinical course Anticipated discharge time: Pending clinical course Objective - Vital Signs Vital signs: Vital Signs Temp 97.9 F 11/16/23 08:00 Pulse 82 11/16/23 08:00 Resp 18 11/16/23 08:00 BP 94/61 11/16/23 08:00 Pulse Ox 90 L 11/16/23 08:00 FiO2 Intake & Output 11/15/23 11/16/23 11/16/23 18:59 06:59 18:59 Intake Total 151.0 100 600 Output Total 2100 1175 Balance -1949.0 -1075 600 Intake: Intake, IV Titration 151.0 100 Amount Furosemide 100 mg In 151.0 100 Sodium Chloride 0.9% 90 ml @ 10 MG/HR 10 mls/hr IV .Q10H [facility] Rx#: [id number] Oral 600 Output: Urine 2100 1175 Other: Voiding Method Indwelling Catheter Indwelling Catheter # Bowel Movements 4 6 ABP, PAP, CO, CI - Last Documented Arterial Blood Pressure 73/52 - Labs CBC & Chem 7: 11/15/23 06:05 11/16/23 05:27 Labs: Abnormal Lab Results - Last 24 Hours (Table) 05/27/24 Range/Units 05:27 Sodium 129 L (137-145) mmol/L Potassium 2.9 L (3.5-5.1) mmol/L Chloride 93 L (98-107) mmol/L Carbon Dioxide 33 H (22-30) mmol/L BUN 23 H (9-20) mg/dL Glucose 111 H (74-99) mg/dL Calcium 7.7 L (8.4-10.2) mg/dL
[2023-11-16] MEDS: IOPAMIDOL CONTRAST (ORAL USE) VIAL PO PRN (12:56)
--- NOTE | 2023-11-17 00:18 | CT ---
EXAMINATION TYPE: CT abdomen pelvis wo/w con CT DLP: 5660.7 mGycm, Automated exposure control for dose reduction was used. DATE OF EXAM: 11/16/2023 3:00 PM COMPARISON: None. CLINICAL INDICATION:Male, 77 years old with history of diarrhea, abd pain; abd pain TECHNIQUE: CT of the abdomen and pelvis was performed both without and with IV contrast. Oral contras t was on board. Multiplanar reformats were generated. Contrast used:100 ml mL of Isovue 300 without and with IV Contrast, (none if empty) Oral contrast used: with Oral Contrast FINDINGS: Small right and otorj-jr-olhgfgia left pleural effusions with adjacent compressive atelectasis. Visua lized aerated lungs are clear. Heart appears mildly enlarged. Small to moderate volume pericardial fl uid. There is a moderately large amount of body wall edema seen in the left more than right body wall with out focal fluid collection seen. Tiny hypodensity in the right lobe image 28 is most probably benign. Portal vein is patent. Gallbladder and biliary tree, spleen, pancreas are unremarkable. Contrast traverses stomach and multiple small bowel loops without evidence of obstruction. Stomach, d uodenum, small bowel loops are nondilated. The appendix is not readily visualized. Moderate amount of stool throughout the colon. Numerous diverticuli in the descending and sigmoid colon. Mild inflammat ory changes throughout these colonic segments would be difficult to exclude. No free air within the abdomen. Small amount of scattered free fluid within the abdomen. The kidneys enhance symmetrically without evidence of mass or hydronephrosis. No visible calculi. A Garcia balloon terminates in the urinary bladder, bladder is decompressed. There is a right double-J ureteral stent present. No left-sided renal calculi or hydronephrosis. Aorta appears tortuous with minimal atherosclerotic calcification. Moderate to severe body wall edema suggesting anasarca. Moderate-sized fat-containing umbilical herni a. Moderate diffuse osseous degenerative changes without clear evidence of an acute bony abnormality. IMPRESSION: 1. Small right and bjxkt-kz-kpsxhtly left pleural effusions with adjacent compressive atelectasis. Mi ld cardiomegaly, with small to moderate volume pericardial fluid. 2. Moderate to severe edema seen in the left more than right body wall, suggesting third spacing of f luids. 3. No evidence of bowel obstruction, free fluid, or free air. Appendix is not readily visualized. Mod erate amount of stool throughout the colon. Numerous diverticuli in the descending and sigmoid colon, mild inflammatory changes throughout these colonic segments would be difficult to exclude. 4. Bladder decompressed by a Garcia catheter. Right double-J ureteral stent in place. 5. Moderate diffuse osseous degenerative changes without clear evidence of an acute bony abnormality.
--- NOTE | 2023-11-17 08:05 | P.PN ---
Subjective Progress Note Date: 11/15/23 Principal diagnosis: Reason for follow-up is C. difficile colitis UTI and leukocytosis Patient is a 77-year-old male with a past medical history significant for hypertension osteoarthritis sleep apnea reflux patient did have a BPH and self catheterize himself because of urine retention, presented to hospital after a fall with weakness he did have a positive UA and has been treated for a UTI also has significant diarrhea stool for C. difficile came back positive pro mpting this consultation. On today's evaluation that is 11/15/2023, the patient continues to be afebrile, the patient is on room air and breathing comfortably, the Pt denies having any chest pain or cough, the patient denies having any abdominal pain no vomiting still having diarrhea however frequency has slowed down Patient white count is 5.5, creatinine is 0.7 Objective - Vital Signs Vital signs: Vital Signs Temp 98.4 F 11/15/23 07:47 Pulse 84 11/15/23 07:47 Resp 18 11/15/23 07:47 BP 101/64 11/15/23 07:47 Pulse Ox 90 L 11/15/23 07:47 FiO2 Intake & Output 11/14/23 11/15/23 11/15/23 18:59 06:59 18:59 Intake Total 1097.833 398.333 Output Total 875 1875 Balance 222.833 -1476.667 Intake: Intake, IV Titration 97.833 98.333 Amount Furosemide 100 mg In 97.833 98.333 Sodium Chloride 0.9% 90 ml @ 10 MG/HR 10 mls/hr IV .Q10H [facility] Rx#: [id number] Oral 1000 300 Output: Urine 875 1875 Other: Voiding Method Indwelling Catheter # Bowel Movements 6 4 ABP, PAP, CO, CI - Last Documented Arterial Blood Pressure 73/52 - Exam GENERAL DESCRIPTION: An elderly male lying in bed in no distress RESPIRATORY SYSTEM: Unlabored breathing , decreased breath sounds at bases HEART: S1 S2 regular rate and rhythm , ABDOMEN: Soft , mild distention and tenderness Exam completed with the help of ADOPTION COORDINATOR - Labs CBC & Chem 7: 11/15/23 06:05 11/16/23 05:27 Assessment and Plan (1) C. difficile colitis Current Visit: Yes Status: Acute Priority: Medium Code(s): A04.72 - ENTEROCOLITIS D/T CLOSTRIDIUM DIFFICILE, NOT SPCF RECUR SNOMED Code(s): 735954378 (2) Leukocytosis Current Visit: Yes Status: Acute Priority: Medium Code(s): D72.829 - ELEVATED WHITE BLOOD CELL COUNT, UNSPECIFIED SNOMED Code(s): 748077444 (3) Urinary tract infection Current Visit: Yes Status: Acute Priority: Medium Code(s): N39.0 - URINARY TRACT INFECTION, SITE NOT SPECIFIED SNOMED Code(s): 47986195 Plan: 1patient with a complicated history and this patient initially presented to the hospital with sepsis as the patient did have a fever elevated white count source likely UTI with urine culture finalized with Pseudomonas aeruginosa, patient did have a CT abdominal pelvis CT shows evidence of hydronephrosis and ureteral stone in this patient who is status post cystoscopy and ureteral stent placement patient is currently covered with the cefepime concerning for pyelonephritis/complicated UTI, for which the patient has received adequate cefepime 2patient C. difficile colitis diarrhea is slowing down and white count has normalized, patient to continue with Dificid and Questran, monitor clinical course closely Dictation was produced using [employer] dictation software. please excuse any grammatical, word or spelling errors. Time with Patient: Less than 30
--- NOTE | 2023-11-17 08:06 | P.PN ---
Subjective Progress Note Date: 11/16/23 Principal diagnosis: Reason for follow-up is C. difficile colitis UTI and leukocytosis Patient is a 77-year-old male with a past medical history significant for hypertension osteoarthritis sleep apnea reflux patient did have a BPH and self catheterize himself because of urine retention, presented to hospital after a fall with weakness he did have a positive UA and has been treated for a UTI also has significant diarrhea stool for C. difficile came back positive pro mpting this consultation. On today's evaluation that is 11/16/2023, Patient is afebrile patient is c urrently on room air and denies having any shortness of breath, the patient denies any chest pain or cough, the patient denies any nausea vomiting did not have any abdominal pain and no diarrhea reported today by the nursing staff. Patient creatinine 0.82 no CBC was done today Objective - Vital Signs Vital signs: Vital Signs Temp 98.5 F 11/16/23 14:00 Pulse 82 11/16/23 14:00 Resp 18 11/16/23 14:00 BP 91/55 11/16/23 14:00 Pulse Ox 91 L 11/16/23 14:00 FiO2 Intake & Output 11/15/23 11/16/23 11/16/23 18:59 06:59 18:59 Intake Total 151.0 100 600 Output Total 2100 1175 Balance -1949.0 -1075 600 Intake: Intake, IV Titration 151.0 100 Amount Furosemide 100 mg In 151.0 100 Sodium Chloride 0.9% 90 ml @ 10 MG/HR 10 mls/hr IV .Q10H [facility] Rx#: [id number] Oral 600 Output: Urine 2100 1175 Other: Voiding Method Indwelling Catheter Indwelling Catheter # Bowel Movements 4 6 ABP, PAP, CO, CI - Last Documented Arterial Blood Pressure 73/52 - Exam GENERAL DESCRIPTION: An elderly male lying in bed in no distress RESPIRATORY SYSTEM: Unlabored breathing , decreased breath sounds at bases HEART: S1 S2 regular rate and rhythm , ABDOMEN: Soft , mild distention and tenderness Exam completed with the help of BRASS MOLDER HELPER - Labs CBC & Chem 7: 11/15/23 06:05 11/16/23 05:27 Labs: Abnormal Lab Results - Last 24 Hours (Table) 11/16/23 Range/Units 05: Sodium 129 L (137-145) mmol/L Potassium 2.9 L (3.5-5.1) mmol/L Chloride 93 L (98-107) mmol/L Carbon Dioxide 33 H (22-30) mmol/L BUN 23 H (9-20) mg/dL Glucose 111 H (74-99) mg/dL Calcium 7.7 L (8.4-10.2) mg/dL Assessment and Plan (1) C. difficile colitis Current Visit: Yes Status: Acute Priority: Medium Code(s): A04.72 - ENTEROCOLITIS D/T CLOSTRIDIUM DIFFICILE, NOT SPCF RECUR SNOMED Code(s): 464397773 (2) Leukocytosis Current Visit: Yes Status: Acute Priority: Medium Code(s): D72.829 - ELEVATED WHITE BLOOD CELL COUNT, UNSPECIFIED SNOMED Code(s): 140597484 (3) Urinary tract infection Current Visit: Yes Status: Acute Priority: Medium Code(s): N39.0 - URINARY TRACT INFECTION, SITE NOT SPECIFIED SNOMED Code(s): 04847162 Plan: 1patient with a complicated history and this patient initially presented to the hospital with sepsis as the patient did have a fever elevated white count source likely UTI with urine culture finalized with Pseudomonas aeruginosa, patient did have a CT abdominal pelvis CT shows evidence of hydronephrosis and ureteral stone in this patient who is status post cystoscopy and ureteral stent placement patient is currently covered with the cefepime concerning for pyelonephritis/complicated UTI, for which the patient has received adequate cefepime 2patient with C. difficile colitis, patient did have resolution of his diarrhea as reported by the nursing staff today and white count has normalized, patient to continue with Dificid and Questran, CT abdominal pelvis has been ordered results will be followed Dictation was produced using [employer] dictation software. please excuse any grammatical, word or spelling errors. Time with Patient: Less than 30
[2023-11-17 09:00] LABS: Blood Urea Nitrogen 19.2 mg/dL (9.0-27.0); Calcium 7.7 mg/dL (8.7-10.3); Carbon Dioxide 32.5 mmol/L (21.6-31.8); Chloride 93 mmol/L (96-109); Glucose 121 mg/dL (70-110); Magnesium 1.9 mg/dL (1.5-2.4); Potassium 3.3 mmol/L (3.5-5.5); Sodium 134 mmol/L (135-145)
--- NOTE | 2023-11-17 12:19 | P.PN ---
Subjective patient is seen for follow-up for hyponatremia. Patient is maintained on Lasix drip. Serum sodium improved to 134 today. Complaining of nausea. Objective - Vital Signs Vital signs: Vital Signs Temp 98.5 F 11/17/23 07:10 Pulse 74 11/17/23 07:10 Resp 19 11/17/23 07:10 BP 95/55 11/17/23 07:10 Pulse Ox 96 11/17/23 07:10 FiO2 Intake & Output 11/16/23 11/17/23 11/17/23 18:59 06:59 18:59 Intake Total 700 100 Output Total 2500 900 Balance -1800 -900 100 Weight 152.861 kg Intake: Intake, IV Titration 100 100 Amount Furosemide 100 mg In 100 100 Sodium Chloride 0.9% 90 ml @ 10 MG/HR 10 mls/hr IV .Q10H [facility] Rx#: [id number] Oral 600 Output: Urine 2500 900 Other: Voiding Method Indwelling Catheter Indwelling Catheter Indwelling Catheter # Bowel Movements 2 ABP, PAP, CO, CI - Last Documented Arterial Blood Pressure 73/52 - Exam patient is awake, comfortable, no acute distress. morbidly obese Examination of the heart S1 and S2 Examination of the lungs decreased breath sounds at the bases Abdomen is soft nontender Examination of lower extremities shows 2-3+ edema bilaterally [employer]RECTION[employer] FACILITY NURSE exam grossly intact - Labs CBC & Chem 7: 11/15/23 06:05 11/17/23 05:26 Labs: Abnormal Lab Results - Last 24 Hours (Table) 11/17/23 Range/Units 05:26 Sodium 134 L (135-145) mmol/L Potassium 3.3 L (3.5-5.5) mmol/L Chloride 93 L (96-109) mmol/L Carbon Dioxide 32.5 H (21.6-31.8) mmol/L BUN/Creatinine Ratio 24.00 H (12.00-20.00) Ratio Glucose 121 H (70-110) mg/dL Calcium 7.7 L (8.7-10.3) mg/dL Assessment and Plan Assessment: 1. Hypervolemic hyponatremia. Improved with diuresis. TSH normal. Urine sodium less than 20 and urine osmolality 512. Sodium level 134 today. 2. Volume overload. Improving with diuresis. 3. Pseudomonas UTI s/p antibiotics. 4. C. difficile colitis on Dificid. ID following. 5. Acute on chronic diastolic CHF. 6. Morbid obesity. 7. Elevated kappa light chains. Seen by hematology. 8. Metabolic acidosis from IV fluids and GI losses. Resolved. 9. Right-sided hydronephrosis due to UPJ calculus status post cystoscopy with right ureteral stent placement. Urology following. 10. Hypokalemia from diuresis. Plan: continue with Lasix drip. Repeat labs in a.m. Continue with fluid restriction.
[2023-11-17] MEDS: POTASSIUM CHLORIDE ER 20 MEQ TAB.ER PO STA (12:33)
--- NOTE | 2023-11-17 14:18 | P.PN ---
Subjective Progress Note Date: 11/17/23 This is a 77-year-old white male with history of hypertension, obesity, chronic urinary retention, chronic systolic congestive heart failure with ejection fraction of 40 to 45%, patient was admitted to the hospital on 10/26/2023, his chief complaint was mostly a complaint of generalized weakness. Patient has been noticing more difficulty ambulating due to profound weakness in his lower extremities over quite some time. Patient got to the point where he could not help himself with transfers. Brought into the ER, and the patient was found to have a urinary tract infection and he was treated with anti biotics/cephalosporins. Since then, the patient was seen by many consultants including infectious disease, urology, and now the patient is being seen by general surgery. He was also seen by oncology. Infectious disease felt that the patient presented with sepsis secondary to urinary tract infection and his urine cultures came back positive for Pseudomonas aeruginosa. Apparently the patient went on to develop C. difficile colitis, and he developed severe diarrhea. Patient was treated with oral vancomycin, but went on to develop worsening abdominal discomfort and diarrhea in spite of oral vancomycin, CT of the abdomen and pelvis done yesterday showed evidence of pancolitis with colonic distention up to 7.5 cm there was no evidence of free air. There was also evidence of 1 cm stone at the right UPJ junction. And the patient was felt to have possibly early obstructive uropathy. There was also another 1.4 cm nonobstructive right renal stone. Patient was seen by urology, and he underwent cystoscopy and right ureteral stent insertion. Today the patient was seen by general surgery on consultation, and became quite concerned about his colonic distention as the patient may be developing a toxic megacolon. Hence recommended transfer to the ICU. I did evaluate the patient on the floor, he is on room air, comfortable, blood pressure is soft, patient is not in any distress but he does seem to be a bit lethargic, and profoundly weak. Hence recommended that we monitor the patient in the ICU and I transferred the patient after my evaluation. Labs today showed significant leukocytosis/leukemoid reaction with WBC count of 65.5, hemoglobin 13.7. Sodium is a bit low at 127 BUN is 52 creatinine 1.35, bicarb is 18 anion gap is normal. Lactic acid yesterday was 1.8. Patient was reevaluated today on 11/01/2023, patient remains in the ICU, he made a significant clinical improvement over the last 24 hours. Blood pressure remained stable patient denies any nausea vomiting abdominal pain, his clinical abdominal findings seem to be benign today. Patient remains on IV fluid at 100 cc/h in the form of 0.9 normal saline, he has a fecal system in place and has no evidence of bleeding, stools are loose, no GI bleeding, and no black or tarry stools. Continues to have leukocytosis/leukemoid reaction with WBC count of 65.9 hemoglobin 15.8 sodium is better today up to 129 bicarb remains a bit low at 16 BUN is 53 creatinine 1.04, improved compared to yesterday creatinine of 1. 35. Patient did receive the fluid boluses yesterday for slightly elevated lactic acid. And clearly the patient does not need surgical intervention at this point. Lactic acid yesterday was 1.2 went down from 1.8. Flatplate of the abdomen yesterday showed nonspecific bowel gas pattern without radiographic evidence of acute process. The patient is seen today November 02, 2023 in follow-up in the intensive care unit. He is currently awake and alert in no acute distress. He is maintaining good O2 saturations in the 90s on room air. He has normal staying at 100 MLS per hour. He remains on oral vancomycin, cefepime, Flagyl, Dificid for his C. difficile colitis and urinary tract infection. He did undergo ureteral stenting on 10/30/2023. Urine culture was positive for Pseudomonas aeruginosa. Blood cultures revealing no growth. White count 53.3. Hemoglobin 13.3. Platelets 289. Sodium 129. Potassium 3.8. Bicarb 17. BUN 51. Creatinine 0.99. Glucose 116. He is afebrile. Hemodynamically stable. The patient is seen today November 05, 2023 in follow-up on the regular medical floor. Is awake and alert in no acute distress. Resting in bed. He denies any worsening shortness of breath, cough or congestion. Maintaining O2 saturations in the 90s on room air. He is afebrile. Hemodynamically stable. Urine culture was positive for Pseudomonas aeruginosa. Blood cultures revealed no growth. White count 38.9. Hemoglobin 14.5. Platelets 318. Sodium 131. Potassium 4.5. Bicarb 15. BUN 31. Creatinine 0.8. Glucose 136. He is continued on cefepime, Flagyl, Zosyn and Dificid. Heparin for DVT prophylaxis. The patient is seen today November 06, 2023 in follow-up on the regular medical floor. He is resting comfortably in bed. Awake and alert in no acute distress. He is receiving normal saline at KVO. He is continued on cefepime, Dificid, Flagyl and vancomycin. He did have Pseudomonas in the urine. No new labs today. Recent white count was 30.9. Heparin for DVT prophylaxis. The patient is seen today November 07, 2023 in follow-up on the regular medical floor. He is awake and alert in no acute distress. Resting quite comfortably in bed. He continues to maintain good O2 saturations in the 90s on room air. No IV fluids. He remains on cefepime, Flagyl, vancomycin. Heparin for DVT prophylaxis. Follow-up blood cultures revealed no growth. Urine culture was positive for Pseudomonas aeruginosa. White count 23.0. Hemoglobin 16.2. Platelets 323. Sodium 131. Potassium 4.7. Bicarb 19. BUN 27. Creatinine 0.69. The patient is seen today November 17, 2023 in follow-up on the regular medical floor. He is awake and alert in no acute distress. He is being treated for C. difficile colitis. He remains on Dificid. He is also requiring a Lasix drip currently at 10 mg/h. He is currently in a -2.7 L balance. Garcia catheter remains in place. ET scan of the abdomen last evening revealed a small right and small to moderate left pleural effusion with adjacent atelectasis. Moderate to severe edema seen in the left more than right body wall suggesting third spacing of fluids. No evidence of bowel obstruction, free fluid or free air. Moderate amount of stool throughout the colon. Numerous diverticuli in the descending and sigmoid colon, mild inflammatory changes throughout these colonic segments. Sodium 134. Potassium 3.3. Bicarb 32. BUN 19. Creatinine 0.8. Glucose 121. Heparin for DVT prophylaxis Objective - Vital Signs Vital signs: Vital Signs Temp 98.5 F 11/17/23 07:10 Pulse 74 11/17/23 07:10 Resp 19 11/17/23 07:10 BP 95/55 11/17/23 07:10 Pulse Ox 96 11/17/23 07:10 FiO2 Intake & Output 11/16/23 11/17/23 11/17/23 18:59 06:59 18:59 Intake Total 700 100 Output Total 2500 900 Balance -1800 -900 100 Weight 152.861 kg Intake: Intake, IV Titration 100 100 Amount Furosemide 100 mg In 100 100 Sodium Chloride 0.9% 90 ml @ 10 MG/HR 10 mls/hr IV .Q10H [facility] Rx#: [id number] Oral 600 Output: Urine 2500 900 Other: Voiding Method Indwelling Catheter Indwelling Catheter Indwelling Catheter # Bowel Movements 2 ABP, PAP, CO, CI - Last Documented Arterial Blood Pressure 73/52 - Exam GENERAL EXAM: Alert, 77-year-old male, resting in bed, on 2 L/min per nasal cannula, in no apparent distress. HEAD: Normocephalic. EYES: Normal reaction of pupils, equal size. NOSE: Clear with pink turbinates. THROAT: No erythema or exudates. NECK: No masses, no JVD. CHEST: No chest wall deformity. LUNGS: Equal air entry with faint basilar crackles. CVS: S1 and S2 normal with no audible murmur, regular rhythm. ABDOMEN: Distended. No hepatosplenomegaly, normal bowel sounds, no guarding or rigidity. SPINE: No scoliosis or deformity SKIN: No rashes CENTRAL NERVOUS SYSTEM: No focal deficits, tone is normal in all 4 extremities. EXTREMITIES: There is 1+ peripheral edema. No clubbing, no cyanosis. Peripheral pulses are intact. - Labs CBC & Chem 7: 11/15/23 06:05 11/17/23 05:26 Labs: Abnormal Lab Results - Last 24 Hours (Table) 11/17/23 Range/Units 05:26 Sodium 134 L (135-145) mmol/L Potassium 3.3 L (3.5-5.5) mmol/L Chloride 93 L (96-109) mmol/L Carbon Dioxide 32.5 H (21.6-31.8) mmol/L BUN/Creatinine Ratio 24.00 H (12.00-20.00) Ratio Glucose 121 H (70-110) mg/dL Calcium 7.7 L (8.7-10.3) mg/dL Assessment and Plan Assessment: Acute sepsis secondary to C. difficile colitis and pseudomonal urinary tract infection, patient has been treated with cefepime, vancomycin orally, Flagyl. Remains on oral Dificid None anion gap metabolic acidosis, initially required by bicarb replacement, recovered Hypovolemic hyponatremia secondary to diarrhea History of congestive heart failure with preserved ejection fraction, currently on a Lasix drip Obstructive uropathy and hydronephrosis requiring cystoscopy and right ureteral stent insertion on 10/30/23 Morbid obesity History of obstructive sleep apnea Generalized anasarca Hyponatremia Acute kidney injury, resolved Urinary tract infection secondary to Pseudomonas aeruginosa Morbid obesity with a BMI of 59.7 Plan: The patient was seen and evaluated CT scan of the abdomen pelvis, medications and labs reviewed Remains on a Lasix drip Heparin for DVT prophylaxis Continued on Dificid Titrate down the FiO2 as tolerated I have personally seen and examined the patient, performed the documentation and the assessment and plan as written. Number of minutes spent on the visit: 10.
--- NOTE | 2023-11-17 14:18 | P.PN ---
Subjective Progress Note Date: 11/17/23 Hospital Course: Patient is a pleasant 77-year-old male with a past medical history of congestive systolic heart failure with previously known EF of 40 to 45%, hypertension, GERD, obstructive sleep apnea, BPH requiring frequent straight catheterizations and at times Garcia catheter, chronic back pain with bilateral lower extremity neuropathies and restless legs, macular degeneration, and bilateral cataract removal with lens implants. He presented to the emergency department on 10/26/2023 with a chief complaint of generalized weakness. Vital signs in the emergency department show blood pressure 143/74, heart rate 86, respiratory rate 18, temp 99.6, and SpO2 of 95% on room air, shortly after arrival temp elevated as high as 101.3 F. EKG completed showing sinus mechanism at 86 bpm. Chest x- ray completed showing mild cardiomegaly with overall hazy densities related to overlying soft tissue/body habitus. CBC showing leukocytosis with WBC count of 14.4 and macrocytosis with MCV of 100.2. BMP showing hyponatremia with sodium of 134 otherwise normal findings. Lactic acid was 1.3. Magnesium 1.8. Liver profile unremarkable. Urinalysis contaminated specimen but appears positive for infection, urine kappa light 6.17 and urine free lambda light 0.68. Free kappa LC quant was 2.06. Influenza A, influenza B, RSV, and COVID were negative. Patient was started on IV antibiotics with Rocephin admitted under our services for acute cystitis and generalized weakness. Echocardiogram was completed showing preserved EF of 55% and mildly increased left ventricular wall thickness. Urine culture positive for Pseudomonas aeruginosa. Blood culture showing no growth to date. C. difficile positive. Started on oral vancomycin in addition to his cefepime for treatment of Pseudomonas UTI. Underwent right ureteral stent insertion by urology. Patient's condition worsened and WBC count significantly increasing concerning for fulminant C. difficile. Patient was started on IV Flagyl in addition to oral vancomycin and a CT abdomen and pelvis was completed. CT abdomen and pelvis revealed severe pancolitis with colonic distention up to 7.5 cm with no pneumatosis or free air noted at this time. Consult was placed to general surgery infectious disease. Patient was started on vancomycin enemas and fidaxomicin in addition to oral vancomycin and IV Flagyl. He was evaluated by general surgery team who stated that taking patient to the OR could result in significant morbidity and/or mortality and recommending continuation of appropriate antibiotics and resuscitation measures at this time. 10/31/2023 patient was transferred to the ICU and an arterial line was placed for close monitoring of hemodynamic status. Patient's condition improving and he was transferred back to stepdown unit on 11/02/2023. Garcia catheter still in place. Fecal management system discontinued. Patient does have insurance Auth. Does seem to be a little bit more dehydrated, still having frequent bowel movements. Nephrology was consulted, patient is now on Lasix drip, sodium increasing. Also status post IV albumin. Vancomycin discontinued, started on fidaxomicin. Repeat CT abdomen pelvis shows small right and small to moderate left pleural effusion, small to moderate volume pericardial fluid, moderate to severe edema of the right body wall suggesting third spacing, moderate amount of stool throughout the colon, right double J ureteral stent. Subjective: Patient seen and examined at bedside. No acute events overnight. Still having frequent bowel movements. Urine catheter in place. Pertinent positives and negatives as discussed above, a complete review of systems was performed and all other systems are negative. Vitals Signs Reviewed. General: Nontoxic, no distress, appears at stated age, morbidly obese, generalized anasarca Derm: Warm, dry Head: Atraumatic, normocephalic, symmetric Eyes: EOMI, no lid lag, anicteric sclera Mouth: No lip lesion, mucus membranes moist Cardiovascular: S1S2 reg, no murmur Lungs: CTA bilateral, no rhonchi, no rales, no accessory muscle use Abdominal: Soft, nontender to palpation, no guarding, no appreciable organomegaly Ext: No gross muscle atrophy, no contractures Neuro: CN II-XI grossly intact, no focal neuro deficits Psych: Alert, oriented, appropriate affect Data Reviewed Today: Pertinent Labs: Sodium 134, potassium 3.3, creatinine 0.8, magnesium 1.9 Imaging: CT abdomen pelvis shows small right and small to moderate left pleural effusion, small to moderate volume pericardial fluid, moderate to severe edema of the right body wall suggesting third spacing, moderate amount of stool throughout the colon, right double J ureteral stent. Assessment and Plan: Hyponatremia, hypervolemic Acute on chronic diastolic CHF exacerbation Pleural effusions Pericardial effusion Anasarca secondary to above albuminemia Non-anion gap metabolic acidosis secondary to diarrhea, resolved Hypokalemia -Nephrology note reviewed, continue on Lasix drip at 10 mg/hr for another 24 hours, monitor electrolytes and renal function, Consider SGLT2 inhibitor in the future, replace potassium -Status post IV albumin once -Ensure supplements increased to 3 times daily with meals Persistent diarrhea -Slightly improved -CT abdomen pelvis shows moderate colonic stool, less likely colitis Sepsis secondary to Pseudomonas UTI, present on admission Hydronephrosis with renal and ureteral calculus obstruction status post ureteral stent Hospital course complicated by fulminant C. difficile infection History of BPH -He is status post oral vancomycin, discussed management with ID, continue fidaxomicin 200 twice daily for likely another 10 days, continue cholestyramine 4 g twice daily -Completed course of IV cefepime and IV Flagyl -Urology following, Garcia catheter remained until patient gets home, may resume intermittent catheterization at that time, ureteral stent to be taken out in approximately 6 weeks when patient will undergo cystoscopy and removal of bladder calculus and right renal calculus. -Continue doxazosin 8 mg nightly -General surgery: Okay to be discharged from their standpoint -[employer]: Continue current therapy Acute kidney injury, resolved Severe leukocytosis resolved History of hypertension Hypotension resolved -Continue losartan 25 daily -Continue aspirin 325 mg daily. Elevated light chains Low QRS voltage on EKG -Urine kappa light 6.17 and urine free lambda light 0.68. Free kappa LC quant was 2.06. -Hematology evaluated, recommend follow-up in their clinic in 3 months to repeat paraproteinemia labs Obstructive sleep apnea -Continue CPAP nightly and while napping. Morbid obesity, class III with BMI 52.8 kg/m -Recommend outpatient structured weight management program. Narcolepsy? -Continue home modafinil 300 mg daily DVT ppx: Subcu heparin Code status: Full code Anticipated discharge place: Pending clinical course Anticipated discharge time: Pending clinical course Objective - Vital Signs Vital signs: Vital Signs Temp 98.5 F 11/17/23 07:10 Pulse 74 11/17/23 07:10 Resp 19 11/17/23 07:10 BP 95/55 11/17/23 07:10 Pulse Ox 96 11/17/23 07:10 FiO2 Intake & Output 11/16/23 11/17/23 11/17/23 18:59 06:59 18:59 Intake Total 700 100 Output Total 2500 900 Balance -1800 -900 100 Weight 152.861 kg Intake: Intake, IV Titration 100 100 Amount Furosemide 100 mg In 100 100 Sodium Chloride 0.9% 90 ml @ 10 MG/HR 10 mls/hr IV .Q10H [facility] Rx#: [id number] Oral 600 Output: Urine 2500 900 Other: Voiding Method Indwelling Catheter Indwelling Catheter Indwelling Catheter # Bowel Movements 2 ABP, PAP, CO, CI - Last Documented Arterial Blood Pressure 73/52 - Labs CBC & Chem 7: 11/15/23 06:05 11/17/23 05:26 Labs: Abnormal Lab Results - Last 24 Hours (Table) 11/17/23 Range/Units 05:26 Sodium 134 L (135-145) mmol/L Potassium 3.3 L (3.5-5.5) mmol/L Chloride 93 L (96-109) mmol/L Carbon Dioxide 32.5 H (21.6-31.8) mmol/L BUN/Creatinine Ratio 24.00 H (12.00-20.00) Ratio Glucose 121 H (70-110) mg/dL Calcium 7.7 L (8.7-10.3) mg/dL
--- NOTE | 2023-11-17 15:52 | P.PN ---
Subjective Progress Note Date: 11/17/23 Principal diagnosis: Reason for follow-up is C. difficile colitis UTI and leukocytosis Patient is a 77-year-old male with a past medical history significant for hypertension osteoarthritis sleep apnea reflux patient did have a BPH and self catheterize himself because of urine retention, presented to hospital after a fall with weakness he did have a positive UA and has been treated for a UTI also has significant diarrhea stool for C. difficile came back positive pro mpting this consultation. On today's evaluation that is 11/17/2023, patient has been afebrile, patient is breathing comfortably and is currently on 2 L nasal cannula oxygen, patient denies having any significant cough no chest pain shortness of breath, patient denies nausea vomiting or abdominal pain, diarrhea has slowed down per the nursing staff. No CBC was done today, creatinine 0.8 Objective - Vital Signs Vital signs: Vital Signs Temp 98.5 F 11/17/23 07:10 Pulse 74 11/17/23 07:10 Resp 19 11/17/23 07:10 BP 95/55 11/17/23 07:10 Pulse Ox 96 11/17/23 07:10 FiO2 Intake & Output 11/16/23 11/17/23 11/17/23 18:59 06:59 18:59 Intake Total 700 100 Output Total 2500 900 Balance -1800 -900 100 Weight 152.861 kg Intake: Intake, IV Titration 100 100 Amount Furosemide 100 mg In 100 100 Sodium Chloride 0.9% 90 ml @ 10 MG/HR 10 mls/hr IV .Q10H [facility] Rx#: [id number] Oral 600 Output: Urine 2500 900 Other: Voiding Method Indwelling Catheter Indwelling Catheter Indwelling Catheter # Bowel Movements 2 ABP, PAP, CO, CI - Last Documented Arterial Blood Pressure 73/52 - Exam GENERAL DESCRIPTION: An elderly male lying in bed in no distress RESPIRATORY SYSTEM: Unlabored breathing , decreased breath sounds at bases HEART: S1 S2 regular rate and rhythm , ABDOMEN: Soft , mild distention and tenderness Exam completed with the help of AMPOULE FILLER - Labs CBC & Chem 7: 11/15/23 06:05 11/17/23 05:26 Labs: Abnormal Lab Results - Last 24 Hours (Table) 11/17/23 Range/Units 05: Sodium 134 L (135-145) mmol/L Potassium 3.3 L (3.5-5.5) mmol/L Chloride 93 L (96-109) mmol/L Carbon Dioxide 32.5 H (21.6-31.8) mmol/L BUN/Creatinine Ratio 24.00 H (12.00-20.00) Ratio Glucose 121 H (70-110) mg/dL Calcium 7.7 L (8.7-10.3) mg/dL Assessment and Plan (1) C. difficile colitis Current Visit: Yes Status: Acute Priority: Medium Code(s): A04.72 - ENTEROCOLITIS D/T CLOSTRIDIUM DIFFICILE, NOT SPCF RECUR SNOMED Code(s): 040046311 (2) Leukocytosis Current Visit: Yes Status: Acute Priority: Medium Code(s): D72.829 - ELEVATED WHITE BLOOD CELL COUNT, UNSPECIFIED SNOMED Code(s): 072724185 (3) Urinary tract infection Current Visit: Yes Status: Acute Priority: Medium Code(s): N39.0 - URINARY TRACT INFECTION, SITE NOT SPECIFIED SNOMED Code(s): 41734853 Plan: 1patient with a complicated history and this patient initially presented to the hospital with sepsis as the patient did have a fever elevated white count source likely UTI with urine culture finalized with Pseudomonas aeruginosa, patient did have a CT abdominal pelvis CT shows evidence of hydronephrosis and ureteral stone in this patient who is status post cystoscopy and ureteral stent placement patient is currently covered with the cefepime concerning for pyelonephritis/complicated UTI, for which the patient has received adequate cefepime 2patient with C. difficile colitis, patient did have improvement in his diarrhea CT abdominal pelvis did not show any significant colitis patient to continue with the Dificid recommending another 10-day course of Dificid on discharge because of his extensive disease discussed with admitting team Dictation was produced using [employer] dictation software. please excuse any grammatical, word or spelling errors. Time with Patient: Less than 30
[2023-11-18 09:36] LABS: BUN/Creat Ratio 27.29 Ratio (12.00-20.00); Blood Urea Nitrogen 19.1 mg/dL (9.0-27.0); Carbon Dioxide 34.5 mmol/L (21.6-31.8); Chloride 92 mmol/L (96-109); Glucose 124 mg/dL (70-110); Potassium 3.1 mmol/L (3.5-5.5); Sodium 134 mmol/L (135-145)
[2023-11-18] MEDS: POTASSIUM CHLORIDE ER 20 MEQ TAB.ER PO STA (11:59)
--- NOTE | 2023-11-18 12:55 | P.PN ---
Subjective Progress Note Date: 11/18/23 Hospital Course: Patient is a pleasant 77-year-old male with a past medical history of congestive systolic heart failure with previously known EF of 40 to 45%, hypertension, GERD, obstructive sleep apnea, BPH requiring frequent straight catheterizations and at times Garcia catheter, chronic back pain with bilateral lower extremity neuropathies and restless legs, macular degeneration, and bilateral cataract removal with lens implants. He presented to the emergency department on 10/26/2023 with a chief complaint of generalized weakness. He was febrile on arrival. EKG showed sinus rhythm. Chest x-ray completed showing mild cardiomegaly with overall hazy densities related to overlying soft tissue/body habitus. WBC 14.4 and macrocytosis with MCV of 100.2. BMP showing hyponatremia with sodium of 134 otherwise normal findings. Lactic acid was 1.3. Magnesium 1.8. Liver profile unremarkable. Urinalysis contaminated specimen but appears positive for infection, urine kappa light 6.17 and urine free lambda light 0.68. Free kappa LC quant was 2.06. Influenza A, influenza B, RSV, and COVID were negative. Patient was started on IV antibiotics with Rocephin admitted under our services for acute cystitis and generalized weakness. Echocardiogram was completed showing preserved EF of 55% and mildly increased left ventricular wall thickness. Urine culture positive for Pseudomonas aeruginosa. Blood culture showing no growth to date. C. difficile positive. Started on oral vancomycin in addition to his cefepime for treatment of Pseudomonas UTI. Underwent right ureteral stent insertion by urology. Patient's condition worsened and WBC count significantly increasing concerning for fulminant C. difficile. Patient was started on IV Flagyl in addition to oral vancomycin and a CT abdomen and pelvis was completed. CT abdomen and pelvis revealed severe pancolitis with colonic distention up to 7.5 cm with no pneumatosis or free air noted at this time. Consult was placed to general surgery and infectious disease. Patient was started on vancomycin enemas and fidaxomicin in addition to oral vancomycin and IV Flagyl. He was evaluated by general surgery team who stated that taking patient to the OR could result in significant morbidity and/or mortality and recommending continuation of appropriate antibiotics and resuscitation measures at this time. 10/31/2023 patient was transferred to the ICU. Patient's condition improving and he was transferred back to stepdown unit on 11/02/2023. Garcia catheter still in place. Fecal management system discontinued. Continues to have frequent bowel movements. Nephrology was consulted for worsening hyponatremia and volume overload. Started on Lasix drip. Also status post IV albumin. Vancomycin discontinued, started on fidaxomicin. Repeat CT abdomen pelvis shows small right and small to moderate left pleural effusion, small to moderate volume pericardial fluid, moderate to severe edema of the right body wall suggesting third spacing, moderate amount of stool throughout the colon, right double J ureteral stent. Bowel movements slowing down. Subjective: Patient seen and examined at bedside. No acute events overnight. Bowel movement slowing down. Urine catheter in place. Negative multiple liters since admission. Pertinent positives and negatives as discussed above, a complete review of systems was performed and all other systems are negative. Vitals Signs Reviewed. General: Nontoxic, no distress, appears at stated age, morbidly obese, generalized anasarca Derm: Warm, dry Head: Atraumatic, normocephalic, symmetric Eyes: EOMI, no lid lag, anicteric sclera Mouth: No lip lesion, mucus membranes moist Cardiovascular: S1S2 reg, no murmur Lungs: Bibasilar rales, no accessory muscle use, supplemental oxygen Abdominal: Soft, nontender to palpation, no guarding, no appreciable organomegaly Ext: No gross muscle atrophy, no contractures Neuro: CN II-XI grossly intact, no focal neuro deficits Psych: Alert, oriented, appropriate affect Data Reviewed Today: Pertinent Labs: Sodium 134, potassium 3.1, creatinine 0.7, magnesium 2 Imaging: No new imaging Assessment and Plan: Hyponatremia, hypervolemic Acute on chronic diastolic CHF exacerbation Pleural effusions Pericardial effusion Anasarca secondary to above albuminemia Non-anion gap metabolic acidosis secondary to diarrhea, resolved Hypokalemia -Nephrology following, continue on Lasix drip at 10 mg/hr for another 24 hours, monitor electrolytes and renal function -Status post 40 mEq oral potassium today -Status post IV albumin once during this admission -Ensure supplements increased to 3 times daily with meals Persistent diarrhea, resolving -CT abdomen pelvis shows moderate colonic stool, less likely colitis Sepsis secondary to Pseudomonas UTI, present on admission, now resolved Hydronephrosis with renal and ureteral calculus obstruction status post ureteral stent Hospital course complicated by fulminant C. difficile infection History of BPH -He is status post oral vancomycin, and now on fidaxomicin 200 twice daily for likely another 10 days, continue cholestyramine 4 g twice daily -Completed course of IV cefepime and IV Flagyl -ID following -Urology consulted: Garcia catheter to remain until patient gets home, may resume intermittent catheterization at that time, ureteral stent to be taken out in approximately 6 weeks when patient will undergo cystoscopy and removal of bladder calculus and right renal calculus. -Continue doxazosin 8 mg nightly -General surgery: Okay to be discharged from their standpoint -Speech Language Pathologist Prn: Continue current therapy Acute kidney injury, resolved Severe leukocytosis resolved History of hypertension Hypotension resolved -Continue losartan 25 daily -Continue aspirin 325 mg daily. Elevated light chains Low QRS voltage on EKG -Urine kappa light 6.17 and urine free lambda light 0.68. Free kappa LC quant was 2.06. -Hematology evaluated, recommend follow-up in their clinic in 3 months to repeat paraproteinemia labs Obstructive sleep apnea -Continue CPAP nightly and while napping. Morbid obesity, class III with BMI 52.8 kg/m -Recommend outpatient structured weight management program. Narcolepsy -Continue home modafinil 300 mg daily DVT ppx: Subcu heparin Code status: Full code Anticipated discharge place: Pending clinical course Anticipated discharge time: Pending clinical course Objective - Vital Signs Vital signs: Vital Signs Temp 99.0 F 11/18/23 07:58 Pulse 71 11/18/23 07:58 Resp 17 11/18/23 07:58 BP 105/67 11/18/23 07:58 Pulse Ox 95 11/18/23 07:58 FiO2 Intake & Output 11/17/23 11/18/23 11/18/23 18:59 06:59 18:59 Intake Total 186.167 91.333 Output Total 1400 1999 Balance -1213.833 -1908.667 Weight 152.861 kg Intake: Intake, IV Titration 186.167 91.333 Amount Furosemide 100 mg In 186.167 91.333 Sodium Chloride 0.9% 90 ml @ 10 MG/HR 10 mls/hr IV .Q10H [facility] Rx#: [id number] Output: Urine 1400 1999 Uretheral (Garcia) 1999 Other: Voiding Method Indwelling Catheter Indwelling Catheter Indwelling Catheter # Bowel Movements 3 1 ABP, PAP, CO, CI - Last Documented Arterial Blood Pressure 73/52 - Labs CBC & Chem 7: 11/15/23 06:05 11/18/23 05:46 Labs: Abnormal Lab Results - Last 24 Hours (Table) 11/18/23 Range/Units 05:46 Sodium 134 L (135-145) mmol/L Potassium 3.1 L (3.5-5.5) mmol/L Chloride 92 L (96-109) mmol/L Carbon Dioxide 34.5 H (21.6-31.8) mmol/L BUN/Creatinine Ratio 27.29 H (12.00-20.00) Ratio Glucose 124 H (70-110) mg/dL Calcium 8.0 L (8.7-10.3) mg/dL
--- NOTE | 2023-11-18 15:01 | P.PN ---
Subjective Progress Note Date: 11/18/23 This is a 77-year-old white male with history of hypertension, obesity, chronic urinary retention, chronic systolic congestive heart failure with ejection fraction of 40 to 45%, patient was admitted to the hospital on 10/26/2023, his chief complaint was mostly a complaint of generalized weakness. Patient has been noticing more difficulty ambulating due to profound weakness in his lower extremities over quite some time. Patient got to the point where he could not help himself with transfers. Brought into the ER, and the patient was found to have a urinary tract infection and he was treated with anti biotics/cephalosporins. Since then, the patient was seen by many consultants including infectious disease, urology, and now the patient is being seen by general surgery. He was also seen by oncology. Infectious disease felt that the patient presented with sepsis secondary to urinary tract infection and his urine cultures came back positive for Pseudomonas aeruginosa. Apparently the patient went on to develop C. difficile colitis, and he developed severe diarrhea. Patient was treated with oral vancomycin, but went on to develop worsening abdominal discomfort and diarrhea in spite of oral vancomycin, CT of the abdomen and pelvis done yesterday showed evidence of pancolitis with colonic distention up to 7.5 cm there was no evidence of free air. There was also evidence of 1 cm stone at the right UPJ junction. And the patient was felt to have possibly early obstructive uropathy. There was also another 1.4 cm nonobstructive right renal stone. Patient was seen by urology, and he underwent cystoscopy and right ureteral stent insertion. Today the patient was seen by general surgery on consultation, and became quite concerned about his colonic distention as the patient may be developing a toxic megacolon. Hence recommended transfer to the ICU. I did evaluate the patient on the floor, he is on room air, comfortable, blood pressure is soft, patient is not in any distress but he does seem to be a bit lethargic, and profoundly weak. Hence recommended that we monitor the patient in the ICU and I transferred the patient after my evaluation. Labs today showed significant leukocytosis/leukemoid reaction with WBC count of 65.5, hemoglobin 13.7. Sodium is a bit low at 127 BUN is 52 creatinine 1.35, bicarb is 18 anion gap is normal. Lactic acid yesterday was 1.8. Patient was reevaluated today on 11/01/2023, patient remains in the ICU, he made a significant clinical improvement over the last 24 hours. Blood pressure remained stable patient denies any nausea vomiting abdominal pain, his clinical abdominal findings seem to be benign today. Patient remains on IV fluid at 100 cc/h in the form of 0.9 normal saline, he has a fecal system in place and has no evidence of bleeding, stools are loose, no GI bleeding, and no black or tarry stools. Continues to have leukocytosis/leukemoid reaction with WBC count of 65.9 hemoglobin 15.8 sodium is better today up to 129 bicarb remains a bit low at 16 BUN is 53 creatinine 1.04, improved compared to yesterday creatinine of 1. 35. Patient did receive the fluid boluses yesterday for slightly elevated lactic acid. And clearly the patient does not need surgical intervention at this point. Lactic acid yesterday was 1.2 went down from 1.8. Flatplate of the abdomen yesterday showed nonspecific bowel gas pattern without radiographic evidence of acute process. The patient is seen today November 02, 2023 in follow-up in the intensive care unit. He is currently awake and alert in no acute distress. He is maintaining good O2 saturations in the 90s on room air. He has normal staying at 100 MLS per hour. He remains on oral vancomycin, cefepime, Flagyl, Dificid for his C. difficile colitis and urinary tract infection. He did undergo ureteral stenting on 10/30/2023. Urine culture was positive for Pseudomonas aeruginosa. Blood cultures revealing no growth. White count 53.3. Hemoglobin 13.3. Platelets 289. Sodium 129. Potassium 3.8. Bicarb 17. BUN 51. Creatinine 0.99. Glucose 116. He is afebrile. Hemodynamically stable. The patient is seen today November 05, 2023 in follow-up on the regular medical floor. Is awake and alert in no acute distress. Resting in bed. He denies any worsening shortness of breath, cough or congestion. Maintaining O2 saturations in the 90s on room air. He is afebrile. Hemodynamically stable. Urine culture was positive for Pseudomonas aeruginosa. Blood cultures revealed no growth. White count 38.9. Hemoglobin 14.5. Platelets 318. Sodium 131. Potassium 4.5. Bicarb 15. BUN 31. Creatinine 0.8. Glucose 136. He is continued on cefepime, Flagyl, Zosyn and Dificid. Heparin for DVT prophylaxis. The patient is seen today November 06, 2023 in follow-up on the regular medical floor. He is resting comfortably in bed. Awake and alert in no acute distress. He is receiving normal saline at KVO. He is continued on cefepime, Dificid, Flagyl and vancomycin. He did have Pseudomonas in the urine. No new labs today. Recent white count was 30.9. Heparin for DVT prophylaxis. The patient is seen today November 07, 2023 in follow-up on the regular medical floor. He is awake and alert in no acute distress. Resting quite comfortably in bed. He continues to maintain good O2 saturations in the 90s on room air. No IV fluids. He remains on cefepime, Flagyl, vancomycin. Heparin for DVT prophylaxis. Follow-up blood cultures revealed no growth. Urine culture was positive for Pseudomonas aeruginosa. White count 23.0. Hemoglobin 16.2. Platelets 323. Sodium 131. Potassium 4.7. Bicarb 19. BUN 27. Creatinine 0.69. The patient is seen today November 17, 2023 in follow-up on the regular medical floor. He is awake and alert in no acute distress. He is being treated for C. difficile colitis. He remains on Dificid. He is also requiring a Lasix drip currently at 10 mg/h. He is currently in a -2.7 L balance. Garcia catheter remains in place. ET scan of the abdomen last evening revealed a small right and small to moderate left pleural effusion with adjacent atelectasis. Moderate to severe edema seen in the left more than right body wall suggesting third spacing of fluids. No evidence of bowel obstruction, free fluid or free air. Moderate amount of stool throughout the colon. Numerous diverticuli in the descending and sigmoid colon, mild inflammatory changes throughout these colonic segments. Sodium 134. Potassium 3.3. Bicarb 32. BUN 19. Creatinine 0.8. Glucose 121. Heparin for DVT prophylaxis. The patient is seen today November 18, 2023 in follow-up on the regular medical floor. He is currently resting in bed. Awake and alert in no acute distress. He is maintaining O2 saturations in the 90s on 2 L/min per nasal cannula. He denies any worsening shortness of breath. No chest pain. No abdominal pain. He remains on a Lasix drip at 10 mg/h. He is currently in a -3.1 L balance. He remains on Dificid. Sodium 134. Potassium 3.1. Bicarb 35. BUN 19. Creatinine 0.7. Glucose 124. Objective - Vital Signs Vital signs: Vital Signs Temp 99.0 F 11/18/23 07:58 Pulse 71 11/18/23 07:58 Resp 17 11/18/23 07:58 BP 105/67 11/18/23 07:58 Pulse Ox 95 11/18/23 07:58 FiO2 Intake & Output 11/17/23 11/18/23 11/18/23 18:59 06:59 18:59 Intake Total 186.167 91.333 100 Output Total 1400 1999 Balance -1213.833 -1908.667 100 Weight 152.861 kg Intake: Intake, IV Titration 186.167 91.333 100 Amount Furosemide 100 mg In 186.167 91.333 100 Sodium Chloride 0.9% 90 ml @ 10 MG/HR 10 mls/hr IV .Q10H [facility] Rx#: [id number] Output: Urine 1400 1999 Uretheral (Garcia) 1999 Other: Voiding Method Indwelling Catheter Indwelling Catheter Indwelling Catheter # Bowel Movements 3 1 ABP, PAP, CO, CI - Last Documented Arterial Blood Pressure 73/52 - Exam GENERAL EXAM: Alert, oriented 77-year-old male patient, resting in bed, on 2 L/min per nasal cannula, in no apparent distress. HEAD: Normocephalic. EYES: Normal reaction of pupils, equal size. NOSE: Clear with pink turbinates. THROAT: No erythema or exudates. NECK: No masses, no JVD. CHEST: No chest wall deformity. LUNGS: Equal air entry with faint basilar crackles. CVS: S1 and S2 normal with no audible murmur, regular rhythm. ABDOMEN: Distended. No hepatosplenomegaly, normal bowel sounds, no guarding or rigidity. SPINE: No scoliosis or deformity SKIN: No rashes CENTRAL NERVOUS SYSTEM: No focal deficits, tone is normal in all 4 extremities. EXTREMITIES: There is 1+ peripheral edema. No clubbing, no cyanosis. Peripheral pulses are intact. - Labs CBC & Chem 7: 11/15/23 06:05 11/18/23 05:46 Labs: Abnormal Lab Results - Last 24 Hours (Table) 11/18/23 Range/Units 05:46 Sodium 134 L (135-145) mmol/L Potassium 3.1 L (3.5-5.5) mmol/L Chloride 92 L (96-109) mmol/L Carbon Dioxide 34.5 H (21.6-31.8) mmol/L BUN/Creatinine Ratio 27.29 H (12.00-20.00) Ratio Glucose 124 H (70-110) mg/dL Calcium 8.0 L (8.7-10.3) mg/dL Assessment and Plan Assessment: Acute sepsis secondary to C. difficile colitis and pseudomonal urinary tract infection, patient has been treated with cefepime, vancomycin orally, Flagyl. Remains on oral Dificid None anion gap metabolic acidosis, initially required by bicarb replacement, recovered Hypovolemic hyponatremia secondary to diarrhea History of congestive heart failure with preserved ejection fraction, currently on a Lasix drip Obstructive uropathy and hydronephrosis requiring cystoscopy and right ureteral stent insertion on 10/30/23 Morbid obesity History of obstructive sleep apnea Generalized anasarca Hyponatremia Acute kidney injury, resolved Urinary tract infection secondary to Pseudomonas aeruginosa Morbid obesity with a BMI of 59.7 Plan: The patient was seen and evaluated Medications and labs reviewed Remains on a Lasix drip Plan is for Regen on the Geraldine at discharge I have personally seen and examined the patient, performed the documentation and the assessment and plan as written. Number of minutes spent on the visit: 10.
--- NOTE | 2023-11-18 22:26 | P.PN ---
Subjective patient is seen for follow-up for hyponatremia. Patient is maintained on Lasix drip. Serum sodium improved to 134. No significant complaints. Objective - Vital Signs Vital signs: Vital Signs Temp 99.2 F 11/18/23 19:05 Pulse 81 11/18/23 19:05 Resp 17 11/18/23 19:05 BP 108/56 11/18/23 19:05 Pulse Ox 97 11/18/23 19:05 FiO2 Intake & Output 11/18/23 11/18/23 11/19/23 06:59 18:59 06:59 Intake Total 91.333 100 Output Total 1999 4000 Balance -1908.667 -3900 Intake: Intake, IV Titration 91.333 100 Amount Furosemide 100 mg In 91.333 100 Sodium Chloride 0.9% 90 ml @ 10 MG/HR 10 mls/hr IV .Q10H [facility] Rx#: [id number] Output: Urine 1999 3999 Uretheral (Garcia) 1999 Other: Voiding Method Indwelling Catheter Indwelling Catheter Indwelling Catheter # Bowel Movements 1 2 ABP, PAP, CO, CI - Last Documented Arterial Blood Pressure 73/52 - Exam patient is awake, comfortable, no acute distress. morbidly obese Examination of the heart S1 and S2 Examination of the lungs decreased breath sounds at the bases Abdomen is soft nontender Examination of lower extremities shows 2-3+ edema bilaterally [employer] exam grossly intact - Labs CBC & Chem 7: 11/15/23 06:05 11/18/23 05:46 Labs: Abnormal Lab Results - Last 24 Hours (Table) 11/18/23 Range/Units 05:46 Sodium 134 L (135-145) mmol/L Potassium 3.1 L (3.5-5.5) mmol/L Chloride 92 L (96-109) mmol/L Carbon Dioxide 34.5 H (21.6-31.8) mmol/L BUN/Creatinine Ratio 27.29 H (12.00-20.00) Ratio Glucose 124 H (70-110) mg/dL Calcium 8.0 L (8.7-10.3) mg/dL Assessment and Plan Assessment: 1. Hypervolemic hyponatremia. Improved with diuresis. TSH normal. Urine sodium less than 20 and urine osmolality 512. Sodium level 134 today. 2. Volume overload. Improving with diuresis. 3. Pseudomonas UTI s/p antibiotics. 4. C. difficile colitis on Dificid. ID following. 5. Acute on chronic diastolic CHF. 6. Morbid obesity. 7. Elevated kappa light chains. Seen by hematology. 8. Metabolic acidosis from IV fluids and GI losses. Resolved. 9. Right-sided hydronephrosis due to UPJ calculus status post cystoscopy with right ureteral stent placement. Urology following. 10. Hypokalemia from diuresis. Plan: continue with Lasix drip. Discontinue in a.m. Repeat labs in a.m. Continue with fluid restriction.
[2023-11-19 11:08] LABS: BUN/Creat Ratio 24.43 Ratio (12.00-20.00); Blood Urea Nitrogen 17.1 mg/dL (9.0-27.0); Calcium 8.1 mg/dL (8.7-10.3); Carbon Dioxide 36.6 mmol/L (21.6-31.8); Chloride 89 mmol/L (96-109); Glucose 111 mg/dL (70-110); Magnesium 1.8 mg/dL (1.5-2.4); Potassium 2.9 mmol/L (3.5-5.5); Sodium 135 mmol/L (135-145)
--- NOTE | 2023-11-19 14:48 | P.PN ---
Subjective Progress Note Date: 11/19/23 Hospital Course: Patient is a pleasant 77-year-old male with a past medical history of congestive systolic heart failure with previously known EF of 40 to 45%, hypertension, GERD, obstructive sleep apnea, BPH requiring frequent straight catheterizations and at times Garcia catheter, chronic back pain with bilateral lower extremity neuropathies and restless legs, macular degeneration, and bilateral cataract removal with lens implants. He presented to the emergency department on 10/26/2023 with a chief complaint of generalized weakness. He was febrile on arrival. EKG showed sinus rhythm. Chest x-ray completed showing mild cardiomegaly with overall hazy densities related to overlying soft tissue/body habitus. WBC 14.4 and macrocytosis with MCV of 100.2. BMP showing hyponatremia with sodium of 134 otherwise normal findings. Lactic acid was 1.3. Magnesium 1.8. Liver profile unremarkable. Urinalysis contaminated specimen but appears positive for infection, urine kappa light 6.17 and urine free lambda light 0.68. Free kappa LC quant was 2.06. Influenza A, influenza B, RSV, and COVID were negative. Patient was started on IV antibiotics with Rocephin admitted under our services for acute cystitis and generalized weakness. Echocardiogram was completed showing preserved EF of 55% and mildly increased left ventricular wall thickness. Urine culture positive for Pseudomonas aeruginosa. Blood culture showing no growth to date. C. difficile positive. Started on oral vancomycin in addition to his cefepime for treatment of Pseudomonas UTI. Underwent right ureteral stent insertion by urology. Patient's condition worsened and WBC count significantly increasing concerning for fulminant C. difficile. Patient was started on IV Flagyl in addition to oral vancomycin and a CT abdomen and pelvis was completed. CT abdomen and pelvis revealed severe pancolitis with colonic distention up to 7.5 cm with no pneumatosis or free air noted at this time. Consult was placed to general surgery and infectious disease. Patient was started on vancomycin enemas and fidaxomicin in addition to oral vancomycin and IV Flagyl. He was evaluated by general surgery team who stated that taking p atient to the OR could result in significant morbidity and/or mortality and recommending continuation of appropriate antibiotics and resuscitation measures at this time. 10/31/2023 patient was transferred to the ICU. Patient's condition improving and he was transferred back to stepdown unit on 11/02/2023. Garcia catheter still in place. Fecal management system discontinued. Continues to have frequent bowel movements. Nephrology was consulted for worsening hyponatremia and volume overload. Started on Lasix drip. Also status post IV albumin. Vancomycin discontinued, started on fidaxomicin. Repeat CT abdomen pelvis shows small right and small to moderate left pleural effusion, small to moderate volume pericardial fluid, moderate to severe edema of the right body wall suggesting third spacing, moderate amount of stool throughout the colon, right double J ureteral stent. Bowel movements slowing down. Subjective: Patient seen and examined at bedside. No acute events overnight. Bowel movement slowing down. Urine catheter in place. Negative multiple liters since admission. Lasix gtt discontinued and switched to lasix 80mg IV TID Vitals Signs Reviewed. General: Nontoxic, no distress, appears at stated age, morbidly obese, generalized anasarca Derm: Warm, dry Head: Atraumatic, normocephalic, symmetric Eyes: EOMI, no lid lag, anicteric sclera Mouth: No lip lesion, mucus membranes moist Cardiovascular: S1S2 reg, no murmur Lungs: Bibasilar rales, no accessory muscle use, supplemental oxygen Abdominal: Soft, nontender to palpation, no guarding, no appreciable organome roly Ext: No gross muscle atrophy, no contractures Neuro: CN II-XI grossly intact, no focal neuro deficits Psych: Alert, oriented, appropriate affect Assessment and Plan: Hyponatremia, hypervolemic Acute on chronic diastolic CHF exacerbation Pleural effusions Pericardial effusion Anasarca secondary to above albuminemia Non-anion gap metabolic acidosis secondary to diarrhea, resolved Hypokalemia -Nephrology following, lasix gtt discontinued, started on 80mg IV TID -Status post 40 mEq oral potassium today -Status post IV albumin once during this admission -Ensure supplements increased to 3 times daily with meals Persistent diarrhea, resolving -CT abdomen pelvis shows moderate colonic stool, less likely colitis Sepsis secondary to Pseudomonas UTI, present on admission, now resolved Hydronephrosis with renal and ureteral calculus obstruction status post ureteral stent Hospital course complicated by fulminant C. difficile infection History of BPH -He is status post oral vancomycin, and now on fidaxomicin 200 twice daily for likely another 10 days, continue cholestyramine 4 g twice daily -Completed course of IV cefepime and IV Flagyl -ID following -Urology consulted: Garcia catheter to remain until patient gets home, may resume intermittent catheterization at that time, ureteral stent to be taken out in approximately 6 weeks when patient will undergo cystoscopy and removal of carlos dder calculus and right renal calculus. -Continue doxazosin 8 mg nightly -General surgery: Okay to be discharged from their standpoint -Chief Counsel: Continue current therapy Acute kidney injury, resolved Severe leukocytosis resolved History of hypertension Hypotension resolved -Continue losartan 25 daily -Continue aspirin 325 mg daily. Elevated light chains Low QRS voltage on EKG -Urine kappa light 6.17 and urine free lambda light 0.68. Free kappa LC quant was 2.06. -Hematology evaluated, recommend follow-up in their clinic in 3 months to repeat paraproteinemia labs Obstructive sleep apnea -Continue CPAP nightly and while napping. Morbid obesity, class III with BMI 52.8 kg/m -Recommend outpatient structured weight management program. Narcolepsy -Continue home modafinil 300 mg daily DVT ppx: Subcu heparin Code status: Full code Anticipated discharge place: Pending clinical course Anticipated discharge time: Pending clinical course Objective - Vital Signs Vital signs: Vital Signs Temp 98.7 F 11/19/23 14:00 Pulse 77 11/19/23 14:00 Resp 16 11/19/23 14:00 BP 101/56 11/19/23 14:00 Pulse Ox 93 L 11/19/23 14:00 FiO2 Intake & Output 11/18/23 11/19/23 11/19/23 18:59 06:59 18:59 Intake Total 100 443.167 100 Output Total 4000 2400 Balance -3900 -1956.833 100 Intake: Intake, IV Titration 100 83.167 100 Amount Furosemide 100 mg In 100 83.167 100 Sodium Chloride 0.9% 90 ml @ 10 MG/HR 10 mls/hr IV .Q10H [facility] Rx#: [id number] Oral 360 Output: Urine 4000 2400 Uretheral (Garcia) 2400 Other: Voiding Method Indwelling Catheter Indwelling Catheter Indwelling Catheter # Bowel Movements 2 1 ABP, PAP, CO, CI - Last Documented Arterial Blood Pressure 73/52 - Labs CBC & Chem 7: 11/15/23 06:05 11/19/23 06:31 Labs: Abnormal Lab Results - Last 24 Hours (Table) 11/19/23 Range/Units 06:31 Potassium 2.9 L (3.5-5.5) mmol/L Chloride 89 L (96-109) mmol/L Carbon Dioxide 36.6 H (21.6-31.8) mmol/L BUN/Creatinine Ratio 24.43 H (12.00-20.00) Ratio Glucose 111 H (70-110) mg/dL Calcium 8.1 L (8.7-10.3) mg/dL
--- NOTE | 2023-11-19 15:55 | P.PN ---
Subjective Progress Note Date: 11/19/23 This is a 77-year-old white male with history of hypertension, obesity, chronic urinary retention, chronic systolic congestive heart failure with ejection fraction of 40 to 45%, patient was admitted to the hospital on 10/26/2023, his chief complaint was mostly a complaint of generalized weakness. Patient has been noticing more difficulty ambulating due to profound weakness in his lower extremities over quite some time. Patient got to the point where he could not help himself with transfers. Brought into the ER, and the patient was found to have a urinary tract infection and he was treated with anti biotics/cephalosporins. Since then, the patient was seen by many consultants including infectious disease, urology, and now the patient is being seen by general surgery. He was also seen by oncology. Infectious disease felt that the patient presented with sepsis secondary to urinary tract infection and his urine cultures came back positive for Pseudomonas aeruginosa. Apparently the patient went on to develop C. difficile colitis, and he developed severe diarrhea. Patient was treated with oral vancomycin, but went on to develop worsening abdominal discomfort and diarrhea in spite of oral vancomycin, CT of the abdomen and pelvis done yesterday showed evidence of pancolitis with colonic distention up to 7.5 cm there was no evidence of free air. There was also evidence of 1 cm stone at the right UPJ junction. And the patient was felt to have possibly early obstructive uropathy. There was also another 1.4 cm nonobstructive right renal stone. Patient was seen by urology, and he underwent cystoscopy and right ureteral stent insertion. Today the patient was seen by general surgery on consultation, and became quite concerned about his colonic distention as the patient may be developing a toxic megacolon. Hence recommended transfer to the ICU. I did evaluate the patient on the floor, he is on room air, comfortable, blood pressure is soft, patient is not in any distress but he does seem to be a bit lethargic, and profoundly weak. Hence recommended that we monitor the patient in the ICU and I transferred the patient after my evaluation. Labs today showed significant leukocytosis/leukemoid reaction with WBC count of 65.5, hemoglobin 13.7. Sodium is a bit low at 127 BUN is 52 creatinine 1.35, bicarb is 18 anion gap is normal. Lactic acid yesterday was 1.8. Patient was reevaluated today on 11/01/2023, patient remains in the ICU, he made a significant clinical improvement over the last 24 hours. Blood pressure remained stable patient denies any nausea vomiting abdominal pain, his clinical abdominal findings seem to be benign today. Patient remains on IV fluid at 100 cc/h in the form of 0.9 normal saline, he has a fecal system in place and has no evidence of bleeding, stools are loose, no GI bleeding, and no black or tarry stools. Continues to have leukocytosis/leukemoid reaction with WBC count of 65.9 hemoglobin 15.8 sodium is better today up to 129 bicarb remains a bit low at 16 BUN is 53 creatinine 1.04, improved compared to yesterday creatinine of 1. 35. Patient did receive the fluid boluses yesterday for slightly elevated lactic acid. And clearly the patient does not need surgical intervention at this point. Lactic acid yesterday was 1.2 went down from 1.8. Flatplate of the abdomen yesterday showed nonspecific bowel gas pattern without radiographic evidence of acute process. The patient is seen today November 02, 2023 in follow-up in the intensive care unit. He is currently awake and alert in no acute distress. He is maintaining good O2 saturations in the 90s on room air. He has normal staying at 100 MLS per hour. He remains on oral vancomycin, cefepime, Flagyl, Dificid for his C. difficile colitis and urinary tract infection. He did undergo ureteral stenting on 10/30/2023. Urine culture was positive for Pseudomonas aeruginosa. Blood cultures revealing no growth. White count 53.3. Hemoglobin 13.3. Platelets 289. Sodium 129. Potassium 3.8. Bicarb 17. BUN 51. Creatinine 0.99. Glucose 116. He is afebrile. Hemodynamically stable. The patient is seen today November 05, 2023 in follow-up on the regular medical floor. Is awake and alert in no acute distress. Resting in bed. He denies any worsening shortness of breath, cough or congestion. Maintaining O2 saturations in the 90s on room air. He is afebrile. Hemodynamically stable. Urine culture was positive for Pseudomonas aeruginosa. Blood cultures revealed no growth. White count 38.9. Hemoglobin 14.5. Platelets 318. Sodium 131. Potassium 4.5. Bicarb 15. BUN 31. Creatinine 0.8. Glucose 136. He is continued on cefepime, Flagyl, Zosyn and Dificid. Heparin for DVT prophylaxis. The patient is seen today November 06, 2023 in follow-up on the regular medical floor. He is resting comfortably in bed. Awake and alert in no acute distress. He is receiving normal saline at KVO. He is continued on cefepime, Dificid, Flagyl and vancomycin. He did have Pseudomonas in the urine. No new labs today. Recent white count was 30.9. Heparin for DVT prophylaxis. The patient is seen today November 07, 2023 in follow-up on the regular medical floor. He is awake and alert in no acute distress. Resting quite comfortably in bed. He continues to maintain good O2 saturations in the 90s on room air. No IV fluids. He remains on cefepime, Flagyl, vancomycin. Heparin for DVT prophylaxis. Follow-up blood cultures revealed no growth. Urine culture was positive for Pseudomonas aeruginosa. White count 23.0. Hemoglobin 16.2. Platelets 323. Sodium 131. Potassium 4.7. Bicarb 19. BUN 27. Creatinine 0.69. The patient is seen today November 17, 2023 in follow-up on the regular medical floor. He is awake and alert in no acute distress. He is being treated for C. difficile colitis. He remains on Dificid. He is also requiring a Lasix drip currently at 10 mg/h. He is currently in a -2.7 L balance. Garcia catheter remains in place. ET scan of the abdomen last evening revealed a small right and small to moderate left pleural effusion with adjacent atelectasis. Moderate to severe edema seen in the left more than right body wall suggesting third spacing of fluids. No evidence of bowel obstruction, free fluid or free air. Moderate amount of stool throughout the colon. Numerous diverticuli in the descending and sigmoid colon, mild inflammatory changes throughout these colonic segments. Sodium 134. Potassium 3.3. Bicarb 32. BUN 19. Creatinine 0.8. Glucose 121. Heparin for DVT prophylaxis. The patient is seen today November 18, 2023 in follow-up on the regular medical floor. He is currently resting in bed. Awake and alert in no acute distress. He is maintaining O2 saturations in the 90s on 2 L/min per nasal cannula. He denies any worsening shortness of breath. No chest pain. No abdominal pain. He remains on a Lasix drip at 10 mg/h. He is currently in a -3.1 L balance. He remains on Dificid. Sodium 134. Potassium 3.1. Bicarb 35. BUN 19. Creatinine 0.7. Glucose 124. The patient is seen today November 19, 2023 in follow-up on the regular medical floor. He is awake and alert in no acute distress. Currently resting comfortably in bed. Denies any worsening shortness of breath, cough or congestion. Maintaining O2 saturations in the 90s on 2 L/min per nasal cannula. He is afebrile. Hemodynamically stable. Blood cultures revealed no growth. Sodium 135. Potassium 2.9. Bicarb 37. BUN 17. Creatinine 0.7. Glucose 111. His Lasix drip was discontinued. He is ordered Lasix 80 mg IV every 8 hours per nephrology. Heparin for DVT prophylaxis. Remains on Dificid. Objective - Vital Signs Vital signs: Vital Signs Temp 98.7 F 11/19/23 14:00 Pulse 77 11/19/23 14:00 Resp 16 11/19/23 14:00 BP 101/56 11/19/23 14:00 Pulse Ox 93 L 11/19/23 14:00 FiO2 Intake & Output 11/18/23 11/19/23 11/19/23 18:59 06:59 18:59 Intake Total 100 443.167 100 Output Total 4000 2400 Balance -3900 -1956.833 100 Intake: Intake, IV Titration 100 83.167 100 Amount Furosemide 100 mg In 100 83.167 100 Sodium Chloride 0.9% 90 ml @ 10 MG/HR 10 mls/hr IV .Q10H [facility] Rx#: [id number] Oral 360 Output: Urine 4000 2400 Uretheral (Garcia) 2400 Other: Voiding Method Indwelling Catheter Indwelling Catheter Indwelling Catheter # Bowel Movements 2 1 ABP, PAP, CO, CI - Last Documented Arterial Blood Pressure 73/52 - Exam GENERAL EXAM: Alert, 77-year-old male patient, on 2 L/min per nasal cannula, in no apparent distress. HEAD: Normocephalic. EYES: Normal reaction of pupils, equal size. NOSE: Clear with pink turbinates. THROAT: No erythema or exudates. NECK: No masses, no JVD. CHEST: No chest wall deformity. LUNGS: Equal air entry with faint basilar crackles. CVS: S1 and S2 normal with no audible murmur, regular rhythm. ABDOMEN: Distended. No hepatosplenomegaly, normal bowel sounds, no guarding or rigidity. SPINE: No scoliosis or deformity SKIN: No rashes CENTRAL NERVOUS SYSTEM: No focal deficits, tone is normal in all 4 extremities. EXTREMITIES: There is 1+ peripheral edema. No clubbing, no cyanosis. Periphe ral pulses are intact. - Labs CBC & Chem 7: 11/15/23 06:05 11/19/23 06:31 Labs: Abnormal Lab Results - Last 24 Hours (Table) 11/19/23 Range/Units 06:31 Potassium 2.9 L (3.5-5.5) mmol/L Chloride 89 L (96-109) mmol/L Carbon Dioxide 36.6 H (21.6-31.8) mmol/L BUN/Creatinine Ratio 24.43 H (12.00-20.00) Ratio Glucose 111 H (70-110) mg/dL Calcium 8.1 L (8.7-10.3) mg/dL Assessment and Plan Assessment: Acute sepsis secondary to C. difficile colitis and pseudomonal urinary tract infection, patient has been treated with cefepime, vancomycin orally, Flagyl. Remains on oral Dificid None anion gap metabolic acidosis, initially required by bicarb replacement, recovered Hypovolemic hyponatremia secondary to diarrhea History of congestive heart failure with preserved ejection fraction, currently on a Lasix drip Obstructive uropathy and hydronephrosis requiring cystoscopy and right ureteral stent insertion on 10/30/23 Morbid obesity History of obstructive sleep apnea Generalized anasarca Hyponatremia Acute kidney injury, resolved Urinary tract infection secondary to Pseudomonas aeruginosa Morbid obesity with a BMI of 59.7 Plan: The patient was seen and evaluated Medications and labs reviewed Lasix drip discontinued IV Lasix ordered per nephrology Cleared for discharge once cleared by nephrology Plan is for Pauline on the [facility] I have personally seen and examined the patient, performed the documentation and the assessment and plan as written. Number of minutes spent on the visit: 10.
--- NOTE | 2023-11-19 16:13 | P.PN ---
Subjective Progress Note Date: 11/19/23 Principal diagnosis: Reason for follow-up is C. difficile colitis UTI and leukocytosis Patient is a 77-year-old male with a past medical history significant for hypertension osteoarthritis sleep apnea reflux patient did have a BPH and self catheterize himself because of urine retention, presented to hospital after a fall with weakness he did have a positive UA and has been treated for a UTI also has significant diarrhea stool for C. difficile came back positive pro mpting this consultation. On today's evaluation that is 11/19/2023,the patient remains to be afebrile, patient is on 2 L nasal cannula supplemental oxygen and denies any shortness of breath no chest pain or cough.Patient denies having any nausea or vomiting, no abdominal pain and no diarrhea has been reported today by the nursing staff Patient did have a creatinine of 0.7 no CBC was done today Objective - Vital Signs Vital signs: Vital Signs Temp 98.9 F 11/19/23 07:33 Pulse 70 11/19/23 07:33 Resp 18 11/19/23 07:33 BP 112/64 11/19/23 07:33 Pulse Ox 94 L 11/19/23 08:34 FiO2 Intake & Output 11/18/23 11/19/23 11/19/23 18:59 06:59 18:59 Intake Total 100 443.167 100 Output Total 4000 2400 Balance -3900 -1956.833 100 Intake: Intake, IV Titration 100 83.167 100 Amount Furosemide 100 mg In 100 83.167 100 Sodium Chloride 0.9% 90 ml @ 10 MG/HR 10 mls/hr IV .Q10H [facility] Rx#: [id number] Oral 360 Output: Urine 4000 2400 Uretheral (Garcia) 2400 Other: Voiding Method Indwelling Catheter Indwelling Catheter Indwelling Catheter # Bowel Movements 2 1 ABP, PAP, CO, CI - Last Documented Arterial Blood Pressure 73/52 - Exam GENERAL DESCRIPTION: An elderly male lying in bed in no distress RESPIRATORY SYSTEM: Unlabored breathing , decreased breath sounds at bases HEART: S1 S2 regular rate and rhythm , ABDOMEN: Soft , mild distention and tenderness Exam completed with the help of [employer] - Labs CBC & Chem 7: 11/15/23 06:05 11/19/23 06:31 Labs: Abnormal Lab Results - Last 24 Hours (Table) 05/30/24 Range/Units 06:31 Potassium 2.9 L (3.5-5.5) mmol/L Chloride 89 L (96-109) mmol/L Carbon Dioxide 36.6 H (21.6-31.8) mmol/L BUN/Creatinine Ratio 24.43 H (12.00-20.00) Ratio Glucose 111 H (70-110) mg/dL Calcium 8.1 L (8.7-10.3) mg/dL Assessment and Plan (1) C. difficile colitis Current Visit: Yes Status: Acute Priority: Medium Code(s): A04.72 - ENTEROCOLITIS D/T CLOSTRIDIUM DIFFICILE, NOT SPCF RECUR SNOMED Code(s): 572200957 (2) Leukocytosis Current Visit: Yes Status: Acute Priority: Medium Code(s): D72.829 - ELEVATED WHITE BLOOD CELL COUNT, UNSPECIFIED SNOMED Code(s): 339091138 (3) Urinary tract infection Current Visit: Yes Status: Acute Priority: Medium Code(s): N39.0 - URINARY TRACT INFECTION, SITE NOT SPECIFIED SNOMED Code(s): 07882896 Plan: 1patient with a complicated history and this patient initially presented to the hospital with sepsis as the patient did have a fever elevated white count source likely UTI with urine culture finalized with Pseudomonas aeruginosa, patient did have a CT abdominal pelvis CT shows evidence of hydronephrosis and ureteral stone in this patient who is status post cystoscopy and ureteral stent placement patient is currently covered with the cefepime concerning for pyelonephritis/complicated UTI, for which the patient has received adequate cefepime 2patient with C. difficile colitis, patient did have improvement in his diar laly CT abdominal pelvis did not show any significant colitis patient to continue with the Dificid and Questran X 7 more days on discharge encouraged to increase his probiotic and yogurt intake Dictation was produced using [employer] dictation software. please excuse any grammatical, word or spelling errors. Time with Patient: Less than 30
--- NOTE | 2023-11-19 16:13 | P.PN ---
Subjective Progress Note Date: 11/18/23 Principal diagnosis: Reason for follow-up is C. difficile colitis UTI and leukocytosis Patient is a 77-year-old male with a past medical history significant for hypertension osteoarthritis sleep apnea reflux patient did have a BPH and self catheterize himself because of urine retention, presented to hospital after a fall with weakness he did have a positive UA and has been treated for a UTI also has significant diarrhea stool for C. difficile came back positive pro mpting this consultation. On today's evaluation that is 11/18/2023,the patient denies any fever or any chills, patient is breathing comfortably on 2 L nasal cannula oxygen, the patient denies chest pain shortness of breath and no significant cough, patient denies abdominal pain, no nausea vomiting diarrhea has slowed down No CBC creatinine 0.7 Objective - Vital Signs Vital signs: Vital Signs Temp 99.0 F 11/18/23 07:58 Pulse 71 11/18/23 07:58 Resp 17 11/18/23 07:58 BP 105/67 11/18/23 07:58 Pulse Ox 95 11/18/23 07:58 FiO2 Intake & Output 11/17/23 11/18/23 11/18/23 18:59 06:59 18:59 Intake Total 186.167 91.333 Output Total 1400 1999 Balance -1213.833 -1908.667 Weight 152.861 kg Intake: Intake, IV Titration 186.167 91.333 Amount Furosemide 100 mg In 186.167 91.333 Sodium Chloride 0.9% 90 ml @ 10 MG/HR 10 mls/hr IV .Q10H [facility] Rx#: [id number] Output: Urine 1400 1999 Uretheral (Garcia) 1999 Other: Voiding Method Indwelling Catheter Indwelling Catheter Indwelling Catheter # Bowel Movements 3 1 ABP, PAP, CO, CI - Last Documented Arterial Blood Pressure 73/52 - Exam GENERAL DESCRIPTION: An elderly male lying in bed in no distress RESPIRATORY SYSTEM: Unlabored breathing , decreased breath sounds at bases HEART: S1 S2 regular rate and rhythm , ABDOMEN: Soft , mild distention and tenderness Exam completed with the help of GAS METER MECHANIC - Labs CBC & Chem 7: 11/15/23 06:05 11/19/23 06:31 Labs: Abnormal Lab Results - Last 24 Hours (Table) 11/18/23 Range/Units 05:46 Sodium 134 L (135-145) mmol/L Potassium 3.1 L (3.5-5.5) mmol/L Chloride 92 L (96-109) mmol/L Carbon Dioxide 34.5 H (21.6-31.8) mmol/L BUN/Creatinine Ratio 27.29 H (12.00-20.00) Ratio Glucose 124 H (70-110) mg/dL Calcium 8.0 L (8.7-10.3) mg/dL Assessment and Plan (1) C. difficile colitis Current Visit: Yes Status: Acute Priority: Medium Code(s): A04.72 - ENT EROCOLITIS D/T CLOSTRIDIUM DIFFICILE, NOT SPCF RECUR SNOMED Code(s): 4 01390490 (2) Leukocytosis Current Visit: Yes Status: Acute Priority: Medium Code(s): D72.829 - ELEVATED WHITE BLOOD CELL COUNT, UNSPECIFIED SNOMED Code(s): 032977540 (3) Urinary tract infection Current Visit: Yes Status: Acute Priority: Medium Code(s): N39.0 - URINARY TRACT INFECTION, SITE NOT SPECIFIED SNOMED Code(s): 82721001 Plan: 1patient with a complicated history and this patient initially presented to the hospital with sepsis as the patient did have a fever elevated white count source likely UTI with urine culture finalized with Pseudomonas aeruginosa, patient did have a CT abdominal pelvis CT shows evidence of hydronephrosis and ureteral stone in this patient who is status post cystoscopy and ureteral stent placement patient is currently covered with the cefepime concerning for pyelonephritis/complicated UTI, for which the patient has received adequate cefepime 2patient with C. difficile colitis, patient did have improvement in his diarrhea CT abdominal pelvis did not show any significant colitis patient to continue with the Dificid and Questran Dictation was produced using [employer] dictation software. please excuse any grammatical, word or spelling errors. Time with Patient: Less than 30
[2023-11-19] MEDS: FUROSEMIDE 10 MG/ML 10 ML VIAL IV SCH (16:26)
--- NOTE | 2023-11-19 19:49 | P.PN ---
Subjective patient is seen for follow-up for hyponatremia. Patient is maintained on Lasix drip. Serum sodium improved to 135. 24-hour urine output at 6.4 L. Potassium is low at 2.9. CO2 is slowly increasing from diuresis. No significant complaints. Objective - Vital Signs Vital signs: Vital Signs Temp 98.7 F 11/19/23 14:00 Pulse 77 11/19/23 14:00 Resp 16 11/19/23 14:00 BP 101/56 11/19/23 14:00 Pulse Ox 93 L 11/19/23 14:00 FiO2 Intake & Output 11/19/23 11/19/23 11/20/23 06:59 18:59 06:59 Intake Total 443.167 100 Output Total 2400 1200 Balance -1956.833 -1100 Intake: Intake, IV Titration 83.167 100 Amount Furosemide 100 mg In 83.167 100 Sodium Chloride 0.9% 90 ml @ 10 MG/HR 10 mls/hr IV .Q10H [facility] Rx#: [id number] Oral 360 Output: Urine 2400 1200 Uretheral (Garcia) 2400 Other: Voiding Method Indwelling Catheter Indwelling Catheter # Bowel Movements 1 ABP, PAP, CO, CI - Last Documented Arterial Blood Pressure 73/52 - Exam patient is awake, comfortable, no acute distress. 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 Hypervolemic hyponatremia. Improved with diuresis. TSH normal. Urine sodium less than 20 and urine osmolality 512. Sodium level 135 today. 2. Volume overload. Improving with diuresis. 3. Pseudomonas UTI s/p antibiotics. 4. C. difficile colitis on Dificid. ID following. 5. Acute on chronic diastolic CHF. 6. Morbid obesity. 7. Elevated kappa light chains. Seen by hematology. 8. Metabolic acidosis from IV fluids and GI losses. Resolved. 9. Right-sided hydronephrosis due to UPJ calculus status post cystoscopy with right ureteral stent placement. Urology following. 10. Hypokalemia from diuresis. Plan: DC Lasix drip Switch to IV push Lasix Repeat labs in a.m. Continue with fluid restriction.
--- NOTE | 2023-11-20 10:54 | P.PN ---
Subjective Progress Note Date: 11/20/23 Hospital Course: Patient is a pleasant 77-year-old male with a past medical history of congestive systolic heart failure with previously known EF of 40 to 45%, hypertension, GERD, obstructive sleep apnea, BPH requiring frequent straight catheterizations and at times Garcia catheter, chronic back pain with bilateral lower extremity neuropathies and restless legs, macular degeneration, and bilateral cataract removal with lens implants. He presented to the emergency department on 10/26/2023 with a chief complaint of generalized weakness. He was febrile on arrival. EKG showed sinus rhythm. Chest x-ray completed showing mild cardiomegaly with overall hazy densities related to overlying soft tissue/body habitus. WBC 14.4 and macrocytosis with MCV of 100.2. BMP showing hyponatremia with sodium of 134 otherwise normal findings. Lactic acid was 1.3. Magnesium 1.8. Liver profile unremarkable. Urinalysis contaminated specimen but appears positive for infection, urine kappa light 6.17 and urine free lambda light 0.68. Free kappa LC quant was 2.06. Influenza A, influenza B, RSV, and COVID were negative. Patient was started on IV antibiotics with Rocephin admitted under our services for acute cystitis and generalized weakness. Echocardiogram was completed showing preserved EF of 55% and mildly increased left ventricular wall thickness. Urine culture positive for Pseudomonas aeruginosa. Blood culture showing no growth to date. C. difficile positive. Started on oral vancomycin in addition to his cefepime for treatment of Pseudomonas UTI. Underwent right ureteral stent insertion by urology. Patient's condition worsened and WBC count significantly increasing concerning for fulminant C. difficile. Patient was started on IV Flagyl in addition to oral vancomycin and a CT abdomen and pelvis was completed. CT abdomen and pelvis revealed severe pancolitis with colonic distention up to 7.5 cm with no pneumatosis or free air noted at this time. Consult was placed to general surgery and infectious disease. Patient was started on vancomycin enemas and fidaxomicin in addition to oral vancomycin and IV Flagyl. He was evaluated by general surgery team who stated that taking p atient to the OR could result in significant morbidity and/or mortality and recommending continuation of appropriate antibiotics and resuscitation measures at this time. 10/31/2023 patient was transferred to the ICU. Patient's condition improving and he was transferred back to stepdown unit on 11/02/2023. Garcia catheter still in place. Fecal management system discontinued. Continues to have frequent bowel movements. Nephrology was consulted for worsening hyponatremia and volume overload. Started on Lasix drip. Also status post IV albumin. Vancomycin discontinued, started on fidaxomicin. Repeat CT abdomen pelvis shows small right and small to moderate left pleural effusion, small to moderate volume pericardial fluid, moderate to severe edema of the right body wall suggesting third spacing, moderate amount of stool throughout the colon, right double J ureteral stent. Bowel movements slowing down. Subjective: Patient seen and examined at bedside. No acute events overnight. Bowel movement slowing down. Urine catheter in place. Negative multiple liters since admission. Lasix 80mg IV TID ocntinues Vitals Signs Reviewed. General: Nontoxic, no distress, appears at stated age, morbidly obese, generalized anasarca Derm: Warm, dry Head: Atraumatic, normocephalic, symmetric Eyes: EOMI, no lid lag, anicteric sclera Mouth: No lip lesion, mucus membranes moist Cardiovascular: S1S2 reg, no murmur Lungs: Bibasilar rales, no accessory muscle use, supplemental oxygen Abdominal: Soft, nontender to palpation, no guarding, no appreciable organomegaly Ext: No gross muscle atrophy, no contractures Neuro: CN II-XI grossly intact, no focal neuro deficits Psych: Alert, oriented, appropriate affect Assessment and Plan: Hyponatremia, hypervolemic Acute on chronic diastolic CHF exacerbation Pleural effusions Pericardial effusion Anasarca secondary to above albuminemia Non-anion gap metabolic acidosis secondary to diarrhea, resolved Hypokalemia -Nephrology following, lasix 80mg IV TID -Status post IV albumin once during this admission -Ensure supplements increased to 3 times daily with meals Persistent diarrhea, resolving -CT abdomen pelvis shows moderate colonic stool, less likely colitis Sepsis secondary to Pseudomonas UTI, present on admission, now resolved Hydronephrosis with renal and ureteral calculus obstruction status post ureteral stent Hospital course complicated by fulminant C. difficile infection History of BPH -He is status post oral vancomycin, and now on fidaxomicin 200 twice daily for likely another 10 days, continue cholestyramine 4 g twice daily -Completed course of IV cefepime and IV Flagyl -ID following -Urology consulted: Garcia catheter to remain until patient gets home, may resume intermittent catheterization at that time, ureteral stent to be taken out in approximately 6 weeks when patient will undergo cystoscopy and removal of bl adder calculus and right renal calculus. -Continue doxazosin 8 mg nightly -General surgery: Okay to be discharged from their standpoint -Marketing Project Manager: Continue current therapy, okay to be discharged from their standpoint Acute kidney injury, resolved Severe leukocytosis resolved History of hypertension Hypotension resolved -Continue losartan 25 daily -Continue aspirin 325 mg daily. Elevated light chains Low QRS voltage on EKG -Urine kappa light 6.17 and urine free lambda light 0.68. Free kappa LC quant was 2.06. -Hematology evaluated, recommend follow-up in their clinic in 3 months to repeat paraproteinemia labs Obstructive sleep apnea -Continue CPAP nightly and while napping. Morbid obesity, class III with BMI 52.8 kg/m -Recommend outpatient structured weight management program. Narcolepsy -Continue home modafinil 300 mg daily DVT ppx: Subcu heparin Code status: Full code Anticipated discharge place: Pending clinical course Anticipated discharge time: Pending clinical course Objective - Vital Signs Vital signs: Vital Signs Temp 98.9 F 11/20/23 00:31 Pulse 75 11/20/23 00:31 Resp 16 11/20/23 00:31 BP 108/63 11/20/23 00:31 Pulse Ox 96 11/20/23 00:31 FiO2 Intake & Output 11/19/23 11/20/23 11/20/23 18:59 06:59 18:59 Intake Total 100 540 Output Total 1200 1525 Balance -1100 -985 Intake: Intake, IV Titration 100 Amount Furosemide 100 mg In 100 Sodium Chloride 0.9% 90 ml @ 10 MG/HR 10 mls/hr IV .Q10H [facility] Rx#: [id number] Oral 540 Output: Urine 1200 1525 Other: Voiding Method Indwelling Catheter Indwelling Catheter ABP, PAP, CO, CI - Last Documented Arterial Blood Pressure 73/52 - Labs CBC & Chem 7: 11/15/23 06:05 11/19/23 06:31 Labs: Abnormal Lab Results - Last 24 Hours (Table) 11/19/23 Range/Units 06:31 Potassium 2.9 L (3.5-5.5) mmol/L Chloride 89 L (96-109) mmol/L Carbon Dioxide 36.6 H (21.6-31.8) mmol/L BUN/Creatinine Ratio 24.43 H (12.00-20.00) Ratio Glucose 111 H (70-110) mg/dL Calcium 8.1 L (8.7-10.3) mg/dL
--- NOTE | 2023-11-20 14:46 | P.PN ---
Subjective patient is seen for follow-up for hyponatremia. Lasix drip was discontinued yesterday. Serum sodium improved to 135. 24-hour urine output at 2.7 L. No significant complaints. Objective - Vital Signs Vital signs: Vital Signs Temp 98.9 F 11/20/23 00:31 Pulse 75 11/20/23 00:31 Resp 16 11/20/23 00:31 BP 108/63 11/20/23 00:31 Pulse Ox 96 11/20/23 00:31 FiO2 Intake & Output 11/19/23 11/20/23 11/20/23 18:59 06:59 18:59 Intake Total 100 540 Output Total 1200 1525 Balance -1100 -985 Intake: Intake, IV Titration 100 Amount Furosemide 100 mg In 100 Sodium Chloride 0.9% 90 ml @ 10 MG/HR 10 mls/hr IV .Q10H [facility] Rx#: [id number] Oral 540 Output: Urine 1200 1525 Other: Voiding Method Indwelling Catheter Indwelling Catheter Indwelling Catheter ABP, PAP, CO, CI - Last Documented Arterial Blood Pressure 73/52 - Exam patient is awake, comfortable, no acute distress. 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 Hypervolemic hyponatremia. Improved with diuresis. TSH normal. Urine sod ium less than 20 and urine osmolality 512. Sodium improved to 135. 2. Volume overload. Improving with diuresis. 3. Pseudomonas UTI s/p antibiotics. 4. C. difficile colitis on Dificid. ID following. 5. Acute on chronic diastolic CHF. 6. Morbid obesity. 7. Elevated kappa light chains. Seen by hematology. 8. Metabolic acidosis from IV fluids and GI losses. Resolved. 9. Right-sided hydronephrosis due to UPJ calculus status post cystoscopy with right ureteral stent placement. Urology following. 10. Hypokalemia from diuresis. Plan: Continue with current dose of IV Lasix Repeat labs in a.m. Continue with fluid restriction.
--- NOTE | 2023-11-20 15:58 | P.PN ---
Subjective Progress Note Date: 11/20/23 Principal diagnosis: Reason for follow-up is C. difficile colitis UTI and leukocytosis Patient is a 77-year-old male with a past medical history significant for hypertension osteoarthritis sleep apnea reflux patient did have a BPH and self catheterize himself because of urine retention, presented to hospital after a fall with weakness he did have a positive UA and has been treated for a UTI also has significant diarrhea stool for C. difficile came back positive pro mpting this consultation. On today's evaluation that is 11/20/2023, the patient continues to be afebrile, the patient is on 2 L nasal cannula oxygen and breathing comfortably, the Pt denies having any chest pain or cough, the patient denies having any abdominal pain no vomiting and did have 1 BM today per the nursing staff. No new labs has been repeated today Objective - Vital Signs Vital signs: Vital Signs Temp 98.9 F 11/20/23 00:31 Pulse 75 11/20/23 00:31 Resp 16 11/20/23 00:31 BP 108/63 11/20/23 00:31 Pulse Ox 96 11/20/23 00:31 FiO2 Intake & Output 11/19/23 11/20/23 11/20/23 18:59 06:59 18:59 Intake Total 100 540 Output Total 1200 1525 Balance -1100 -985 Intake: Intake, IV Titration 100 Amount Furosemide 100 mg In 100 Sodium Chloride 0.9% 90 ml @ 10 MG/HR 10 mls/hr IV .Q10H [facility] Rx#: [id number] Oral 540 Output: Urine 1200 1525 Other: Voiding Method Indwelling Catheter Indwelling Catheter Indwelling Catheter ABP, PAP, CO, CI - Last Documented Arterial Blood Pressure 73/52 - Exam GENERAL DESCRIPTION: An elderly male lying in bed in no distress RESPIRATORY SYSTEM: Unlabored breathing , decreased breath sounds at bases HEART: S1 S2 regular rate and rhythm , ABDOMEN: Soft , mild distention and tenderness - Labs CBC & Chem 7: 11/15/23 06:05 11/19/23 06:31 Assessment and Plan (1) C. difficile colitis Current Visit: Yes Status: Acute Priority: Medium Code(s): A04.72 - ENTEROCOLITIS D/T CLOSTRIDIUM DIFFICILE, NOT SPCF RECUR SNOMED Code(s): 234413985 (2) Leukocytosis Current Visit: Yes Status: Acute Priority: Medium Code(s): D72.829 - ELEVATED WHITE BLOOD CELL COUNT, UNSPECIFIED SNOMED Code(s): 645599842 (3) Urinary tract infection Current Visit: Yes Status: Acute Priority: Medium Code(s): N39.0 - URINARY TRACT INFECTION, SITE NOT SPECIFIED SNOMED Code(s): 66593397 Plan: 1patient with a complicated history and this patient initially presented to the hospital with sepsis as the patient did have a fever elevated white count source likely UTI with urine culture finalized with Pseudomonas aeruginosa, patient did have a CT abdominal pelvis CT shows evidence of hydronephrosis and ureteral stone in this patient who is status post cystoscopy and ureteral stent placement patient is currently covered with the cefepime concerning for pyelonephritis/complicated UTI, for which the patient has received adequate cefepime 2patient with C. difficile colitis, patient did have improvement in his diarrhea CT abdominal pelvis did not show any significant colitis patient to continue with the Dificid and Questran and monitor his clinical course closely Dictation was produced using [employer] dictation software. please excuse any grammatical, word or spelling errors. Time with Patient: Less than 30
--- NOTE | 2023-11-20 16:23 | P.PN ---
Subjective Progress Note Date: 11/20/23 This is a 77-year-old white male with history of hypertension, obesity, chronic urinary retention, chronic systolic congestive heart failure with ejection fraction of 40 to 45%, patient was admitted to the hospital on 10/26/2023, his chief complaint was mostly a complaint of generalized weakness. Patient has been noticing more difficulty ambulating due to profound weakness in his lower extremities over quite some time. Patient got to the point where he could not help himself with transfers. Brought into the ER, and the patient was found to have a urinary tract infection and he was treated with anti biotics/cephalosporins. Since then, the patient was seen by many consultants including infectious disease, urology, and now the patient is being seen by general surgery. He was also seen by oncology. Infectious disease felt that the patient presented with sepsis secondary to urinary tract infection and his urine cultures came back positive for Pseudomonas aeruginosa. Apparently the patient went on to develop C. difficile colitis, and he developed severe diarrhea. Patient was treated with oral vancomycin, but went on to develop worsening abdominal discomfort and diarrhea in spite of oral vancomycin, CT of the abdomen and pelvis done yesterday showed evidence of pancolitis with colonic distention up to 7.5 cm there was no evidence of free air. There was also evidence of 1 cm stone at the right UPJ junction. And the patient was felt to have possibly early obstructive uropathy. There was also another 1.4 cm nonobstructive right renal stone. Patient was seen by urology, and he underwent cystoscopy and right ureteral stent insertion. Today the patient was seen by general surgery on consultation, and became quite concerned about his colonic distention as the patient may be developing a toxic megacolon. Hence recommended transfer to the ICU. I did evaluate the patient on the floor, he is on room air, comfortable, blood pressure is soft, patient is not in any distress but he does seem to be a bit lethargic, and profoundly weak. Hence recommended that we monitor the patient in the ICU and I transferred the patient after my evaluation. Labs today showed significant leukocytosis/leukemoid reaction with WBC count of 65.5, hemoglobin 13.7. Sodium is a bit low at 127 BUN is 52 creatinine 1.35, bicarb is 18 anion gap is normal. Lactic acid yesterday was 1.8. Patient was reevaluated today on 11/01/2023, patient remains in the ICU, he made a significant clinical improvement over the last 24 hours. Blood pressure remained stable patient denies any nausea vomiting abdominal pain, his clinical abdominal findings seem to be benign today. Patient remains on IV fluid at 100 cc/h in the form of 0.9 normal saline, he has a fecal system in place and has no evidence of bleeding, stools are loose, no GI bleeding, and no black or tarry stools. Continues to have leukocytosis/leukemoid reaction with WBC count of 65.9 hemoglobin 15.8 sodium is better today up to 129 bicarb remains a bit low at 16 BUN is 53 creatinine 1.04, improved compared to yesterday creatinine of 1. 35. Patient did receive the fluid boluses yesterday for slightly elevated lactic acid. And clearly the patient does not need surgical intervention at this point. Lactic acid yesterday was 1.2 went down from 1.8. Flatplate of the abdomen yesterday showed nonspecific bowel gas pattern without radiographic evidence of acute process. The patient is seen today November 02, 2023 in follow-up in the intensive care unit. He is currently awake and alert in no acute distress. He is maintaining good O2 saturations in the 90s on room air. He has normal staying at 100 MLS per hour. He remains on oral vancomycin, cefepime, Flagyl, Dificid for his C. difficile colitis and urinary tract infection. He did undergo ureteral stenting on 10/30/2023. Urine culture was positive for Pseudomonas aeruginosa. Blood cultures revealing no growth. White count 53.3. Hemoglobin 13.3. Platelets 289. Sodium 129. Potassium 3.8. Bicarb 17. BUN 51. Creatinine 0.99. Glucose 116. He is afebrile. Hemodynamically stable. The patient is seen today November 05, 2023 in follow-up on the regular medical floor. Is awake and alert in no acute distress. Resting in bed. He denies any worsening shortness of breath, cough or congestion. Maintaining O2 saturations in the 90s on room air. He is afebrile. Hemodynamically stable. Urine culture was positive for Pseudomonas aeruginosa. Blood cultures revealed no growth. White count 38.9. Hemoglobin 14.5. Platelets 318. Sodium 131. Potassium 4.5. Bicarb 15. BUN 31. Creatinine 0.8. Glucose 136. He is continued on cefepime, Flagyl, Zosyn and Dificid. Heparin for DVT prophylaxis. The patient is seen today November 06, 2023 in follow-up on the regular medical floor. He is resting comfortably in bed. Awake and alert in no acute distress. He is receiving normal saline at KVO. He is continued on cefepime, Dificid, Flagyl and vancomycin. He did have Pseudomonas in the urine. No new labs today. Recent white count was 30.9. Heparin for DVT prophylaxis. The patient is seen today November 07, 2023 in follow-up on the regular medical floor. He is awake and alert in no acute distress. Resting quite comfortably in bed. He continues to maintain good O2 saturations in the 90s on room air. No IV fluids. He remains on cefepime, Flagyl, vancomycin. Heparin for DVT prophylaxis. Follow-up blood cultures revealed no growth. Urine culture was positive for Pseudomonas aeruginosa. White count 23.0. Hemoglobin 16.2. Platelets 323. Sodium 131. Potassium 4.7. Bicarb 19. BUN 27. Creatinine 0.69. The patient is seen today November 17, 2023 in follow-up on the regular medical floor. He is awake and alert in no acute distress. He is being treated for C. difficile colitis. He remains on Dificid. He is also requiring a Lasix drip currently at 10 mg/h. He is currently in a -2.7 L balance. Garcia catheter remains in place. ET scan of the abdomen last evening revealed a small right and small to moderate left pleural effusion with adjacent atelectasis. Moderate to severe edema seen in the left more than right body wall suggesting third spacing of fluids. No evidence of bowel obstruction, free fluid or free air. Moderate amount of stool throughout the colon. Numerous diverticuli in the descending and sigmoid colon, mild inflammatory changes throughout these colonic segments. Sodium 134. Potassium 3.3. Bicarb 32. BUN 19. Creatinine 0.8. Glucose 121. Heparin for DVT prophylaxis. The patient is seen today November 18, 2023 in follow-up on the regular medical floor. He is currently resting in bed. Awake and alert in no acute distress. He is maintaining O2 saturations in the 90s on 2 L/min per nasal cannula. He denies any worsening shortness of breath. No chest pain. No abdominal pain. He remains on a Lasix drip at 10 mg/h. He is currently in a -3.1 L balance. He remains on Dificid. Sodium 134. Potassium 3.1. Bicarb 35. BUN 19. Creatinine 0.7. Glucose 124. The patient is seen today November 19, 2023 in follow-up on the regular medical floor. He is awake and alert in no acute distress. Currently resting comfortably in bed. Denies any worsening shortness of breath, cough or congestion. Maintaining O2 saturations in the 90s on 2 L/min per nasal cannula. He is afebrile. Hemodynamically stable. Blood cultures revealed no growth. Sodium 135. Potassium 2.9. Bicarb 37. BUN 17. Creatinine 0.7. Glucose 111. His Lasix drip was discontinued. He is ordered Lasix 80 mg IV every 8 hours per nephrology. Heparin for DVT prophylaxis. Remains on Dificid. The patient is seen today November 20, 2023 in follow-up on the regular medical floor. He is sitting up in bed. Awake and alert in no acute distress. Denies any worsening shortness of breath, cough or congestion. Continued O2 saturations in the 90s on 2 L/min per nasal cannula. Has been afebrile. Hemodynamically stable. He remains on Lasix 80 mg IV every 8 hours per nephrology. Currently in a -2 L balance. Indwelling catheter remains in place. A midline has been placed. He remains on Dificid and Questran. Heparin for DVT prophylaxis. Objective - Vital Signs Vital signs: Vital Signs Temp 98.7 F 11/20/23 13:53 Pulse 80 11/20/23 13:53 Resp 18 11/20/23 13:53 BP 100/63 11/20/23 13:53 Pulse Ox 95 11/20/23 13:53 FiO2 Intake & Output 11/19/23 11/20/23 11/20/23 18:59 06:59 18:59 Intake Total 100 540 Output Total 1200 1525 Balance -1100 -985 Intake: Intake, IV Titration 100 Amount Furosemide 100 mg In 100 Sodium Chloride 0.9% 90 ml @ 10 MG/HR 10 mls/hr IV .Q10H [facility] Rx#: [id number] Oral 540 Output: Urine 1200 1525 Other: Voiding Method Indwelling Catheter Indwelling Catheter Indwelling Catheter ABP, PAP, CO, CI - Last Documented Arterial Blood Pressure 73/52 - Exam GENERAL EXAM: Alert, 77-year-old male, sitting up in bed, on 2 L/min per nasal cannula, in no apparent distress. HEAD: Normocephalic. EYES: Normal reaction of pupils, equal size. NOSE: Clear with pink turbinates. THROAT: No erythema or exudates. NECK: No masses, no JVD. CHEST: No chest wall deformity. LUNGS: Equal air entry with faint basilar crackles. CVS: S1 and S2 normal with no audible murmur, regular rhythm. ABDOMEN: Distended. No hepatosplenomegaly, normal bowel sounds, no guarding or rigidity. SPINE: No scoliosis or deformity SKIN: No rashes CENTRAL NERVOUS SYSTEM: No focal deficits, tone is normal in all 4 extremities. EXTREMITIES: There is 1+ peripheral edema. No clubbing, no cyanosis. Peripheral pulses are intact. - Labs CBC & Chem 7: 11/15/23 06:05 11/19/23 06:31 Assessment and Plan Assessment: Acute sepsis secondary to C. difficile colitis and pseudomonal urinary tract infection, patient has been treated with cefepime, vancomycin orally, Flagyl. Remains on oral Dificid and Questran None anion gap metabolic acidosis, initially required by bicarb replacement, recovered Hypovolemic hyponatremia secondary to diarrhea History of congestive heart failure with preserved ejection fraction, currently on IV Lasix Obstructive uropathy and hydronephrosis requiring cystoscopy and right ureteral stent insertion on 10/30/23 Morbid obesity History of obstructive sleep apnea Generalized anasarca Hyponatremia Acute kidney injury, resolved Urinary tract infection secondary to Pseudomonas aeruginosa Morbid obesity with a BMI of 59.7 Plan: The patient was seen and evaluated Medications and labs reviewed Remains on IV diuretics Remains in a negative balance Continued on Dificid and Questran per ID service Cleared for discharge once cleared by nephrology Plan is for [facility] on the [place] I have personally seen and examined the patient, performed the documentation and the assessment and plan as written. Number of minutes spent on the visit: 10.
--- NOTE | 2023-11-21 12:32 | P.PN ---
Subjective Progress Note Date: 11/21/23 This is a 77-year-old white male with history of hypertension, obesity, chronic urinary retention, chronic systolic congestive heart failure with ejection fraction of 40 to 45%, patient was admitted to the hospital on 10/26/2023, his chief complaint was mostly a complaint of generalized weakness. Patient has been noticing more difficulty ambulating due to profound weakness in his lower extremities over quite some time. Patient got to the point where he could not help himself with transfers. Brought into the ER, and the patient was found to have a urinary tract infection and he was treated with anti biotics/cephalosporins. Since then, the patient was seen by many consultants including infectious disease, urology, and now the patient is being seen by general surgery. He was also seen by oncology. Infectious disease felt that the patient presented with sepsis secondary to urinary tract infection and his urine cultures came back positive for Pseudomonas aeruginosa. Apparently the patient went on to develop C. difficile colitis, and he developed severe diarrhea. Patient was treated with oral vancomycin, but went on to develop worsening abdominal discomfort and diarrhea in spite of oral vancomycin, CT of the abdomen and pelvis done yesterday showed evidence of pancolitis with colonic distention up to 7.5 cm there was no evidence of free air. There was also evidence of 1 cm stone at the right UPJ junction. And the patient was felt to have possibly early obstructive uropathy. There was also another 1.4 cm nonobstructive right renal stone. Patient was seen by urology, and he underwent cystoscopy and right ureteral stent insertion. Today the patient was seen by general surgery on consultation, and became quite concerned about his colonic distention as the patient may be developing a toxic megacolon. Hence recommended transfer to the ICU. I did evaluate the patient on the floor, he is on room air, comfortable, blood pressure is soft, patient is not in any distress but he does seem to be a bit lethargic, and profoundly weak. Hence recommended that we monitor the patient in the ICU and I transferred the patient after my evaluation. Labs today showed significant leukocytosis/leukemoid reaction with WBC count of 65.5, hemoglobin 13.7. Sodium is a bit low at 127 BUN is 52 creatinine 1.35, bicarb is 18 anion gap is normal. Lactic acid yesterday was 1.8. Patient was reevaluated today on 11/01/2023, patient remains in the ICU, he made a significant clinical improvement over the last 24 hours. Blood pressure remained stable patient denies any nausea vomiting abdominal pain, his clinical abdominal findings seem to be benign today. Patient remains on IV fluid at 100 cc/h in the form of 0.9 normal saline, he has a fecal system in place and has no evidence of bleeding, stools are loose, no GI bleeding, and no black or tarry stools. Continues to have leukocytosis/leukemoid reaction with WBC count of 65.9 hemoglobin 15.8 sodium is better today up to 129 bicarb remains a bit low at 16 BUN is 53 creatinine 1.04, improved compared to yesterday creatinine of 1. 35. Patient did receive the fluid boluses yesterday for slightly elevated lactic acid. And clearly the patient does not need surgical intervention at this point. Lactic acid yesterday was 1.2 went down from 1.8. Flatplate of the abdomen yesterday showed nonspecific bowel gas pattern without radiographic evidence of acute process. The patient is seen today November 02, 2023 in follow-up in the intensive care unit. He is currently awake and alert in no acute distress. He is maintaining good O2 saturations in the 90s on room air. He has normal staying at 100 MLS per hour. He remains on oral vancomycin, cefepime, Flagyl, Dificid for his C. difficile colitis and urinary tract infection. He did undergo ureteral stenting on 10/30/2023. Urine culture was positive for Pseudomonas aeruginosa. Blood cultures revealing no growth. White count 53.3. Hemoglobin 13.3. Platelets 289. Sodium 129. Potassium 3.8. Bicarb 17. BUN 51. Creatinine 0.99. Glucose 116. He is afebrile. Hemodynamically stable. The patient is seen today November 05, 2023 in follow-up on the regular medical floor. Is awake and alert in no acute distress. Resting in bed. He denies any worsening shortness of breath, cough or congestion. Maintaining O2 saturations in the 90s on room air. He is afebrile. Hemodynamically stable. Urine culture was positive for Pseudomonas aeruginosa. Blood cultures revealed no growth. White count 38.9. Hemoglobin 14.5. Platelets 318. Sodium 131. Potassium 4.5. Bicarb 15. BUN 31. Creatinine 0.8. Glucose 136. He is continued on cefepime, Flagyl, Zosyn and Dificid. Heparin for DVT prophylaxis. The patient is seen today November 06, 2023 in follow-up on the regular medical floor. He is resting comfortably in bed. Awake and alert in no acute distress. He is receiving normal saline at KVO. He is continued on cefepime, Dificid, Flagyl and vancomycin. He did have Pseudomonas in the urine. No new labs today. Recent white count was 30.9. Heparin for DVT prophylaxis. The patient is seen today November 07, 2023 in follow-up on the regular medical floor. He is awake and alert in no acute distress. Resting quite comfortably in bed. He continues to maintain good O2 saturations in the 90s on room air. No IV fluids. He remains on cefepime, Flagyl, vancomycin. Heparin for DVT prophylaxis. Follow-up blood cultures revealed no growth. Urine culture was positive for Pseudomonas aeruginosa. White count 23.0. Hemoglobin 16.2. Platelets 323. Sodium 131. Potassium 4.7. Bicarb 19. BUN 27. Creatinine 0.69. The patient is seen today November 17, 2023 in follow-up on the regular medical floor. He is awake and alert in no acute distress. He is being treated for C. difficile colitis. He remains on Dificid. He is also requiring a Lasix drip currently at 10 mg/h. He is currently in a -2.7 L balance. Garcia catheter remains in place. ET scan of the abdomen last evening revealed a small right and small to moderate left pleural effusion with adjacent atelectasis. Moderate to severe edema seen in the left more than right body wall suggesting third spacing of fluids. No evidence of bowel obstruction, free fluid or free air. Moderate amount of stool throughout the colon. Numerous diverticuli in the descending and sigmoid colon, mild inflammatory changes throughout these colonic segments. Sodium 134. Potassium 3.3. Bicarb 32. BUN 19. Creatinine 0.8. Glucose 121. Heparin for DVT prophylaxis. The patient is seen today November 18, 2023 in follow-up on the regular medical floor. He is currently resting in bed. Awake and alert in no acute distress. He is maintaining O2 saturations in the 90s on 2 L/min per nasal cannula. He denies any worsening shortness of breath. No chest pain. No abdominal pain. He remains on a Lasix drip at 10 mg/h. He is currently in a -3.1 L balance. He remains on Dificid. Sodium 134. Potassium 3.1. Bicarb 35. BUN 19. Creatinine 0.7. Glucose 124. The patient is seen today November 19, 2023 in follow-up on the regular medical floor. He is awake and alert in no acute distress. Currently resting comfortably in bed. Denies any worsening shortness of breath, cough or congestion. Maintaining O2 saturations in the 90s on 2 L/min per nasal cannula. He is afebrile. Hemodynamically stable. Blood cultures revealed no growth. Sodium 135. Potassium 2.9. Bicarb 37. BUN 17. Creatinine 0.7. Glucose 111. His Lasix drip was discontinued. He is ordered Lasix 80 mg IV every 8 hours per nephrology. Heparin for DVT prophylaxis. Remains on Dificid. The patient is seen today November 20, 2023 in follow-up on the regular medical floor. He is sitting up in bed. Awake and alert in no acute distress. Denies any worsening shortness of breath, cough or congestion. Continued O2 saturations in the 90s on 2 L/min per nasal cannula. Has been afebrile. Hemodynamically stable. He remains on Lasix 80 mg IV every 8 hours per nephrology. Currently in a -2 L balance. Indwelling catheter remains in place. A midline has been placed. He remains on Dificid and Questran. Heparin for DVT prophylaxis. The patient is seen today November 21, 2023 in follow-up on the regular medical floor. He is awake and alert in no acute distress. Resting in bed. He has been reluctant to get up out of bed even with assistance. He will sit upright in chair mode while in the bed at times. Labs pending. He is continued on Lasix 80 mg IV every 8 hours. Heparin for DVT prophylaxis. Currently in a -2.3 L balance. He remains on Dificid and Questran. Objective - Vital Signs Vital signs: Vital Signs Temp 98.0 F 11/21/23 07:28 Pulse 74 11/21/23 08:50 Resp 19 11/21/23 08:50 BP 102/63 11/21/23 07:28 Pulse Ox 95 11/21/23 07:28 FiO2 Intake & Output 11/20/23 11/21/23 11/21/23 18:59 06:59 18:59 Intake Total 120 120 Output Total 1150 1400 Balance -1030 -1280 Intake: Oral 120 120 Output: Urine 1150 1400 Other: Voiding Method Indwelling Catheter Indwelling Catheter Indwelling Catheter # Bowel Movements 0 ABP, PAP, CO, CI - Last Documented Arterial Blood Pressure 73/52 - Exam GENERAL EXAM: Alert, 77-year-old male, resting in bed, on 2 L nasal cannula, in no apparent distress. HEAD: Normocephalic. EYES: Normal reaction of pupils, equal size. NOSE: Clear with pink turbinates. THROAT: No erythema or exudates. NECK: No masses, no JVD. CHEST: No chest wall deformity. LUNGS: Equal air entry with faint basilar crackles. CVS: S1 and S2 normal with no audible murmur, regular rhythm. ABDOMEN: Distended. No hepatosplenomegaly, normal bowel sounds, no guarding or rigidity. SPINE: No scoliosis or deformity SKIN: No rashes CENTRAL NERVOUS SYSTEM: No focal deficits, tone is normal in all 4 extremities. EXTREMITIES: There is 1+ peripheral edema. No clubbing, no cyanosis. Peripheral pulses are intact. - Labs CBC & Chem 7: 11/15/23 06:05 11/19/23 06:31 Assessment and Plan Assessment: Acute sepsis secondary to C. difficile colitis and pseudomonal urinary tract infection, patient has been treated with cefepime, vancomycin orally, Flagyl. Remains on oral Dificid and Questran None anion gap metabolic acidosis, initially required by bicarb replacement, recovered Hypovolemic hyponatremia secondary to diarrhea History of congestive heart failure with preserved ejection fraction, currently on IV Lasix Obstructive uropathy and hydronephrosis requiring cystoscopy and right ureteral stent insertion on 10/30/23 Morbid obesity History of obstructive sleep apnea Generalized anasarca Hyponatremia Acute kidney injury, resolved Urinary tract infection secondary to Pseudomonas aeruginosa Morbid obesity with a BMI of 59.7 Plan: The patient was seen and evaluated Medications reviewed Labs pending Remains on IV diuretics Remains in a negative balance Continued on Dificid and Questran Plan is for [facility] on the [place] at discharge I have personally seen and examined the patient, performed the documentation and the assessment and plan as written. Number of minutes spent on the visit: 10.
--- NOTE | 2023-11-21 13:15 | P.PN ---
Subjective Progress Note Date: 11/21/23 Hospital Course: Patient is a pleasant 77-year-old male with a past medical history of congestive systolic heart failure with previously known EF of 40 to 45%, hypertension, GERD, obstructive sleep apnea, BPH requiring frequent straight catheterizations and at times Garcia catheter, chronic back pain with bilateral lower extremity neuropathies and restless legs, macular degeneration, and bilateral cataract removal with lens implants. He presented to the emergency department on 10/26/2023 with a chief complaint of generalized weakness. He was febrile on arrival. EKG showed sinus rhythm. Chest x-ray completed showing mild cardiomegaly with overall hazy densities related to overlying soft tissue/body habitus. WBC 14.4 and macrocytosis with MCV of 100.2. BMP showing hyponatremia with sodium of 134 otherwise normal findings. Lactic acid was 1.3. Magnesium 1.8. Liver profile unremarkable. Urinalysis contaminated specimen but appears positive for infection, urine kappa light 6.17 and urine free lambda light 0.68. Free kappa LC quant was 2.06. Influenza A, influenza B, RSV, and COVID were negative. Patient was started on IV antibiotics with Rocephin admitted under our services for acute cystitis and generalized weakness. Echocardiogram was completed showing preserved EF of 55% and mildly increased left ventricular wall thickness. Urine culture positive for Pseudomonas aeruginosa. Blood culture showing no growth to date. C. difficile positive. Started on oral vancomycin in addition to his cefepime for treatment of Pseudomonas UTI. Underwent right ureteral stent insertion by urology. Patient's condition worsened and WBC count significantly increasing concerning for fulminant C. difficile. Patient was started on IV Flagyl in addition to oral vancomycin and a CT abdomen and pelvis was completed. CT abdomen and pelvis revealed severe pancolitis with colonic distention up to 7.5 cm with no pneumatosis or free air noted at this time. Consult was placed to general surgery and infectious disease. Patient was started on vancomycin enemas and fidaxomicin in addition to oral vancomycin and IV Flagyl. He was evaluated by general surgery team who stated that taking p atient to the OR could result in significant morbidity and/or mortality and recommending continuation of appropriate antibiotics and resuscitation measures at this time. 10/31/2023 patient was transferred to the ICU. Patient's condition improving and he was transferred back to stepdown unit on 11/02/2023. Garcia catheter still in place. Fecal management system discontinued. Continues to have frequent bowel movements. Nephrology was consulted for worsening hyponatremia and volume overload. Started on Lasix drip. Also status post IV albumin. Vancomycin discontinued, started on fidaxomicin. Repeat CT abdomen pelvis shows small right and small to moderate left pleural effusion, small to moderate volume pericardial fluid, moderate to severe edema of the right body wall suggesting third spacing, moderate amount of stool throughout the colon, right double J ureteral stent. Bowel movements slowing down. Subjective: Patient seen and examined at bedside. No acute events overnight. Bowel movement slowing down. Urine catheter in place. Negative multiple liters since admission. Lasix 80mg IV TID ocntinues Vitals Signs Reviewed. General: Nontoxic, no distress, appears at stated age, morbidly obese, generalized anasarca Derm: Warm, dry Head: Atraumatic, normocephalic, symmetric Eyes: EOMI, no lid lag, anicteric sclera Mouth: No lip lesion, mucus membranes moist Cardiovascular: S1S2 reg, no murmur Lungs: Bibasilar rales, no accessory muscle use, supplemental oxygen Abdominal: Soft, nontender to palpation, no guarding, no appreciable organomegaly Ext: No gross muscle atrophy, no contractures Neuro: CN II-XI grossly intact, no focal neuro deficits Psych: Alert, oriented, appropriate affect Assessment and Plan: Hyponatremia, hypervolemic Acute on chronic diastolic CHF exacerbation Pleural effusions Pericardial effusion Anasarca secondary to above albuminemia Non-anion gap metabolic acidosis secondary to diarrhea, resolved Hypokalemia -Nephrology following, lasix 80mg IV TID -Status post IV albumin once during this admission -Ensure supplements increased to 3 times daily with meals Persistent diarrhea, resolving -CT abdomen pelvis shows moderate colonic stool, less likely colitis Sepsis secondary to Pseudomonas UTI, present on admission, now resolved Hydronephrosis with renal and ureteral calculus obstruction status post ureteral stent Hospital course complicated by fulminant C. difficile infection History of BPH -He is status post oral vancomycin, and now on fidaxomicin 200 twice daily for likely another 10 days, continue cholestyramine 4 g twice daily -Completed course of IV cefepime and IV Flagyl -ID following -Urology consulted: Garcia catheter to remain until patient gets home, may resume intermittent catheterization at that time, ureteral stent to be taken out in approximately 6 weeks when patient will undergo cystoscopy and removal of bl adder calculus and right renal calculus. 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 Elevated light chains Low QRS voltage on EKG -Urine kappa light 6.17 and urine free lambda light 0.68. Free kappa LC quant was 2.06. -Hematology evaluated, recommend follow-up in their clinic in 3 months to repeat paraproteinemia labs Obstructive sleep apnea -Continue CPAP nightly and while napping. Morbid obesity, class III with BMI 52.8 kg/m -Recommend outpatient structured weight management program. Narcolepsy -Continue home modafinil 300 mg daily DVT ppx: Subcu heparin Code status: Full code Anticipated discharge place: Pending clinical course Anticipated discharge time: Pending clinical course Objective - Vital Signs Vital signs: Vital Signs Temp 98.0 F 11/21/23 07:28 Pulse 74 11/21/23 08:50 Resp 19 11/21/23 08:50 BP 102/63 11/21/23 07:28 Pulse Ox 95 11/21/23 07:28 FiO2 Intake & Output 11/20/23 11/21/23 11/21/23 18:59 06:59 18:59 Intake Total 120 120 Output Total 1150 1400 2250 Balance -1030 -1280 -2250 Intake: Oral 120 120 Output: Urine 1150 1400 2250 Other: Voiding Method Indwelling Catheter Indwelling Catheter Indwelling Catheter # Bowel Movements 0 ABP, PAP, CO, CI - Last Documented Arterial Blood Pressure 73/52 - Labs CBC & Chem 7: 11/15/23 06:05 11/19/23 06:31
[2023-11-21 13:23] LABS: African American GFR (CKD) >90 (>60 ml/min/1.73 sqM); Blood Urea Nitrogen 20 mg/dL (9-20); Calcium 7.8 mg/dL (8.4-10.2); Chloride 85 mmol/L (98-107); Glucose 159 mg/dL (74-99); Non-African American GFR(CKD) >90 (>60 ml/min/1.73 sqM); Potassium 2.9 mmol/L (3.5-5.1); Sodium 128 mmol/L (137-145)
[2023-11-21 13:29] LABS: Anion Gap 1 mmol/L
--- NOTE | 2023-11-21 14:54 | P.PN ---
Subjective Progress Note Date: 11/21/23 Principal diagnosis: Reason for follow-up is C. difficile colitis UTI and leukocytosis Patient is a 77-year-old male with a past medical history significant for hypertension osteoarthritis sleep apnea reflux patient did have a BPH and self catheterize himself because of urine retention, presented to hospital after a fall with weakness he did have a positive UA and has been treated for a UTI also has significant diarrhea stool for C. difficile came back positive pro mpting this consultation. On today's evaluation that is 11/21/2023, Patient is afebrile patient is c urrently on 2 L nasal cannula oxygen and denies having any shortness of breath, the patient denies any chest pain or cough, the patient denies any nausea vomiting did not have any abdominal pain and no worsening diarrhea reported by the nursing staff. With no bowel movement since morning per the nurse aide patient did have a creatinine 0.58 today Objective - Vital Signs Vital signs: Vital Signs Temp 98.0 F 11/21/23 07:28 Pulse 74 11/21/23 08:50 Resp 19 11/21/23 08:50 BP 102/63 11/21/23 07:28 Pulse Ox 95 11/21/23 07:28 FiO2 Intake & Output 11/20/23 11/21/23 11/21/23 18:59 06:59 18:59 Intake Total 120 120 Output Total 1150 1400 2250 Balance -1030 -1280 -2250 Intake: Oral 120 120 Output: Urine 1150 1400 2250 Other: Voiding Method Indwelling Catheter Indwelling Catheter Indwelling Catheter # Bowel Movements 0 ABP, PAP, CO, CI - Last Documented Arterial Blood Pressure 73/52 - Exam GENERAL DESCRIPTION: An elderly male lying in bed in no distress RESPIRATORY SYSTEM: Unlabored breathing , decreased breath sounds at bases HEART: S1 S2 regular rate and rhythm , ABDOMEN: Soft , mild distention and tenderness Extremities: 2+ edema feet - Labs CBC & Chem 7: 11/15/23 06:05 11/21/23 12:09 Assessment and Plan (1) C. difficile colitis Current Visit: Yes Status: Acute Priority: Medium Code(s): A04.72 - ENTEROCOLITIS D/T CLOSTRIDIUM DIFFICILE, NOT SPCF RECUR SNOMED Code(s): 474184163 (2) Leukocytosis Current Visit: Yes Status: Acute Priority: Medium Code(s): D72.829 - ELEVATED WHITE BLOOD CELL COUNT, UNSPECIFIED SNOMED Code(s): 154528977 (3) Urinary tract infection Current Visit: Yes Status: Acute Priority: Medium Code(s): N39.0 - URINARY TRACT INFECTION, SITE NOT SPECIFIED SNOMED Code(s): 23026837 Plan: 1patient with a complicated history and this patient initially presented to the hospital with sepsis as the patient did have a fever elevated white count source likely UTI with urine culture finalized with Pseudomonas aeruginosa, patient did have a CT abdominal pelvis CT shows evidence of hydronephrosis and ureteral stone in this patient who is status post cystoscopy and ureteral stent placement patient is currently covered with the cefepime concerning for pyeloneph ritis/complicated UTI, for which the patient has received adequate cefepime 2patient with C. difficile colitis, did have improvement in the stool output, patient to continue with the Dificid and Questran and monitor his clinical course closely Dictation was produced using [employer] dictation software. please excuse any grammatical, word or spelling errors. Time with Patient: Less than 30
[2023-11-21 15:26] LABS: Carbon Dioxide 42 mmol/L (22-30)
--- NOTE | 2023-11-21 18:17 | P.PN ---
Subjective patient is seen for follow-up for hyponatremia. Lasix drip was discontinued. Maintained on IV Lasix 80 mg every 8 hours 24-hour urine output at 2.5 L. No significant complaints. Objective - Vital Signs Vital signs: Vital Signs Temp 99.5 F 11/21/23 15:05 Pulse 81 11/21/23 15:05 Resp 18 11/21/23 15:05 BP 103/62 11/21/23 15:05 Pulse Ox 95 11/21/23 15:05 FiO2 Intake & Output 11/20/23 11/21/23 11/21/23 18:59 06:59 18:59 Intake Total 120 120 660 Output Total 1150 1400 2250 Balance -1030 -1280 -1590 Intake: Oral 120 120 660 Output: Urine 1150 1400 2250 Other: Voiding Method Indwelling Catheter Indwelling Catheter Indwelling Catheter # Bowel Movements 0 ABP, PAP, CO, CI - Last Documented Arterial Blood Pressure 73/52 - Exam patient is sleeping, comfortable, no acute distress. 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 Hypervolemic hyponatremia. Improved with diuresis. TSH normal. Urine sodium less than 20 and urine osmolality 512. 2. Volume overload. Improving with diuresis. 3. Pseudomonas UTI s/p antibiotics. 4. C. difficile colitis on Dificid. ID following. 5. Acute on chronic diastolic CHF. 6. Morbid obesity. 7. Elevated kappa light chains. Seen by hematology. 8. Metabolic acidosis from IV fluids and GI losses. Resolved. 9. Right-sided hydronephrosis due to UPJ calculus status post cystoscopy with right ureteral stent placement. Urology following. 10. Hypokalemia from diuresis. 11. Metabolic alkalosis secondary to diuresis Plan: Continue with current dose of IV Lasix Add Diamox for metabolic alkalosis Replace potassium Repeat labs in a.m. Continue with fluid restriction.
[2023-11-22 09:25] LABS: BUN/Creat Ratio 25.33 Ratio (12.00-20.00); Blood Urea Nitrogen 15.2 mg/dL (9.0-27.0); Calcium 8.5 mg/dL (8.7-10.3); Carbon Dioxide 38.8 mmol/L (21.6-31.8); Chloride 87 mmol/L (96-109); Glucose 133 mg/dL (70-110); HCT 36.5 % (39.6-50.0); HGB 11.7 g/dL (13.0-17.0); MCH 32.2 pg (27.0-32.0); MCHC 32.1 g/dL (32.0-37.0); MCV 100.6 FL (80.0-97.0); Magnesium 1.9 mg/dL (1.5-2.4); Mean Platelet Volume 9.2 FL (9.5-12.2); NRBC Per 100 WBC 0 X 10*3/uL (0.00-0.01); Platelet Count 256 X 10*3/uL (140-440); Potassium 2.9 mmol/L (3.5-5.5); RBC 3.63 X 10*6/uL (4.40-5.60); RDW 14.3 % (11.5-14.5); Sodium 136 mmol/L (135-145)
[2023-11-22 10:24] LABS: Basophils # (M) 0 X 10*3/uL (0.00-0.10); Neutrophils % (M) 75 %
[2023-11-22] MEDS: POTASSIUM CHLORIDE ER 20 MEQ TAB.ER PO SCH (11:01)
[2023-11-22 11:59] LABS: Eosinophils # (M) 0.43 X 10*3/uL (0.04-0.35); Lymphocytes # (M) 0.76 X 10*3/uL (0.90-5.00); Metamyelocytes % 1 % (0-0); Monocytes # (M) 0.97 X 10*3/uL (0.20-1.00); Myelocytes % 1 % (0-0); Promyelocytes # (M) 0.32 k/uL (0); Promyelocytes % 3 %
--- NOTE | 2023-11-22 12:03 | P.PN ---
Subjective Progress Note Date: 11/22/23 Hospital Course: Patient is a pleasant 77-year-old male with a past medical history of congestive systolic heart failure with previously known EF of 40 to 45%, hypertension, GERD, obstructive sleep apnea, BPH requiring frequent straight catheterizations and at times Garcia catheter, chronic back pain with bilateral lower extremity neuropathies and restless legs, macular degeneration, and bilateral cataract removal with lens implants. He presented to the emergency department on 10/26/2023 with a chief complaint of generalized weakness. He was febrile on arrival. EKG showed sinus rhythm. Chest x-ray completed showing mild cardiomegaly with overall hazy densities related to overlying soft tissue/body habitus. WBC 14.4 and macrocytosis with MCV of 100.2. BMP showing hyponatremia with sodium of 134 otherwise normal findings. Lactic acid was 1.3. Magnesium 1.8. Liver profile unremarkable. Urinalysis contaminated specimen but appears positive for infection, urine kappa light 6.17 and urine free lambda light 0.68. Free kappa LC quant was 2.06. Influenza A, influenza B, RSV, and COVID were negative. Patient was started on IV antibiotics with Rocephin admitted under our services for acute cystitis and generalized weakness. Echocardiogram was completed showing preserved EF of 55% and mildly increased left ventricular wall thickness. Urine culture positive for Pseudomonas aeruginosa. Blood culture showing no growth to date. C. difficile positive. Started on oral vancomycin in addition to his cefepime for treatment of Pseudomonas UTI. Underwent right ureteral stent insertion by urology. Patient's condition worsened and WBC count significantly increasing concerning for fulminant C. difficile. Patient was started on IV Flagyl in addition to oral vancomycin and a CT abdomen and pelvis was completed. CT abdomen and pelvis revealed severe pancolitis with colonic distention up to 7.5 cm with no pneumatosis or free air noted at this time. Consult was placed to general surgery and infectious disease. Patient was started on vancomycin enemas and fidaxomicin in addition to oral vancomycin and IV Flagyl. He was evaluated by general surgery team who stated that taking p atient to the OR could result in significant morbidity and/or mortality and recommending continuation of appropriate antibiotics and resuscitation measures at this time. 10/31/2023 patient was transferred to the ICU. Patient's condition improving and he was transferred back to stepdown unit on 11/02/2023. Garcia catheter still in place. Fecal management system discontinued. Continues to have frequent bowel movements. Nephrology was consulted for worsening hyponatremia and volume overload. Started on Lasix drip. Also status post IV albumin. Vancomycin discontinued, started on fidaxomicin. Repeat CT abdomen pelvis shows small right and small to moderate left pleural effusion, small to moderate volume pericardial fluid, moderate to severe edema of the right body wall suggesting third spacing, moderate amount of stool throughout the colon, right double J ureteral stent. Bowel movements slowing down. Subjective: Patient seen and examined at bedside. No acute events overnight. Bowel movement slowing down. Urine catheter in place. Negative multiple liters since admission. Lasix 80mg IV TID ocntinues Vitals Signs Reviewed. General: Nontoxic, no distress, appears at stated age, morbidly obese, generalized anasarca Derm: Warm, dry Head: Atraumatic, normocephalic, symmetric Eyes: EOMI, no lid lag, anicteric sclera Mouth: No lip lesion, mucus membranes moist Cardiovascular: S1S2 reg, no murmur Lungs: Bibasilar rales, no accessory muscle use, supplemental oxygen Abdominal: Soft, nontender to palpation, no guarding, no appreciable organomegaly Ext: No gross muscle atrophy, no contractures Neuro: CN II-XI grossly intact, no focal neuro deficits Psych: Alert, oriented, appropriate affect Assessment and Plan: Hyponatremia, hypervolemic Acute on chronic diastolic CHF exacerbation Pleural effusions Pericardial effusion Anasarca secondary to above albuminemia Non-anion gap metabolic acidosis secondary to diarrhea, resolved Hypokalemia -Nephrology following, lasix 80mg IV TID -Status post IV albumin once during this admission -Ensure supplements increased to 3 times daily with meals Persistent diarrhea, resolving -CT abdomen pelvis shows moderate colonic stool, less likely colitis Sepsis secondary to Pseudomonas UTI, present on admission, now resolved Hydronephrosis with renal and ureteral calculus obstruction status post ureteral stent Hospital course complicated by fulminant C. difficile infection History of BPH -He is status post oral vancomycin, and now on fidaxomicin 200 twice daily for likely another 10 days, continue cholestyramine 4 g twice daily -Completed course of IV cefepime and IV Flagyl -ID following -Urology consulted: Garcia catheter to remain until patient gets home, may resume intermittent catheterization at that time, ureteral stent to be taken out in approximately 6 weeks when patient will undergo cystoscopy and removal of bl adder calculus and right renal calculus. 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 Elevated light chains Low QRS voltage on EKG -Urine kappa light 6.17 and urine free lambda light 0.68. Free kappa LC quant was 2.06. -Hematology evaluated, recommend follow-up in their clinic in 3 months to repeat paraproteinemia labs Obstructive sleep apnea -Continue CPAP nightly and while napping. Morbid obesity, class III with BMI 52.8 kg/m -Recommend outpatient structured weight management program. Narcolepsy -Continue home modafinil 300 mg daily DVT ppx: Subcu heparin Code status: Full code Anticipated discharge place: Pending clinical course Anticipated discharge time: Pending clinical course Objective - Vital Signs Vital signs: Vital Signs Temp 98.6 F 11/22/23 07:33 Pulse 77 11/22/23 07:33 Resp 17 11/22/23 07:33 BP 114/74 11/22/23 07:33 Pulse Ox 95 11/22/23 07:33 FiO2 Intake & Output 11/21/23 11/22/23 11/22/23 18:59 06:59 18:59 Intake Total 660 Output Total 2950 1400 Balance -2290 -1400 Intake: Oral 660 Output: Urine 2950 1400 Other: Voiding Method Indwelling Catheter Indwelling Catheter Indwelling Catheter # Bowel Movements 1 ABP, PAP, CO, CI - Last Documented Arterial Blood Pressure 73/52 - Labs CBC & Chem 7: 11/22/23 04:15 11/22/23 04:15 Labs: Abnormal Lab Results - Last 24 Hours (Table) 11/21/23 11/21/23 11/22/23 Range/Units 12:09 19:10 04:15 WBC 10.80 H (4.50-10.00) X 10*3/uL RBC 3.63 L (4.40-5.60) X 10*6/uL Hgb 11.7 L (13.0-17.0) g/dL Hct 36.5 L (39.6-50.0) % MCV 100.6 H (80.0-97.0) FL MCH 32.2 H (27.0-32.0) pg MPV 9.2 L (9.5-12.2) FL Neutrophils # (Manual) 8.10 H (1.80-7.70) X 10*3/uL Lymphocytes # (Manual) 0.76 L (0.90-5.00) X 10*3/uL Eosinophils # (Manual) 0.43 H (0.04-0.35) X 10*3/uL Sodium 128 L 129 L (137-145) mmol/L Potassium 2.9 L (3.5-5.1) mmol/L Chloride 85 L (98-107) mmol/L Carbon Dioxide 42 H* (22-30) mmol/L Creatinine 0.58 L (0.66-1.25) mg/dL BUN/Creatinine Ratio (12.00-20.00) Ratio Glucose 159 H (74-99) mg/dL Calcium 7.8 L (8.4-10.2) mg/dL 11/22/23 Range/Units 04:15 WBC (4.50-10.00) X 10*3/uL RBC (4.40-5.60) X 10*6/uL Hgb (13.0-17.0) g/dL Hct (39.6-50.0) % MCV (80.0-97.0) FL MCH (27.0-32.0) pg MPV (9.5-12.2) FL Neutrophils # (Manual) (1.80-7.70) X 10*3/uL Lymphocytes # (Manual) (0.90-5.00) X 10*3/uL Eosinophils # (Manual) (0.04-0.35) X 10*3/uL Sodium (137-145) mmol/L Potassium 2.9 L (3.5-5.1) mmol/L Chloride 87 L (98-107) mmol/L Carbon Dioxide 38.8 H (22-30) mmol/L Creatinine (0.66-1.25) mg/dL BUN/Creatinine Ratio 25.33 H (12.00-20.00) Ratio Glucose 133 H (74-99) mg/dL Calcium 8.5 L (8.4-10.2) mg/dL
[2023-11-22] MEDS: POTASSIUM CHLORIDE ER 20 MEQ TAB.ER PO STA ×2 (13:44→23:20)
--- NOTE | 2023-11-22 14:49 | P.PN ---
Subjective Progress Note Date: 11/22/23 This is a 77-year-old white male with history of hypertension, obesity, chronic urinary retention, chronic systolic congestive heart failure with ejection fraction of 40 to 45%, patient was admitted to the hospital on 10/26/2023, his chief complaint was mostly a complaint of generalized weakness. Patient has been noticing more difficulty ambulating due to profound weakness in his lower extremities over quite some time. Patient got to the point where he could not help himself with transfers. Brought into the ER, and the patient was found to have a urinary tract infection and he was treated with anti biotics/cephalosporins. Since then, the patient was seen by many consultants including infectious disease, urology, and now the patient is being seen by general surgery. He was also seen by oncology. Infectious disease felt that the patient presented with sepsis secondary to urinary tract infection and his urine cultures came back positive for Pseudomonas aeruginosa. Apparently the patient went on to develop C. difficile colitis, and he developed severe diarrhea. Patient was treated with oral vancomycin, but went on to develop worsening abdominal discomfort and diarrhea in spite of oral vancomycin, CT of the abdomen and pelvis done yesterday showed evidence of pancolitis with colonic distention up to 7.5 cm there was no evidence of free air. There was also evidence of 1 cm stone at the right UPJ junction. And the patient was felt to have possibly early obstructive uropathy. There was also another 1.4 cm nonobstructive right renal stone. Patient was seen by urology, and he underwent cystoscopy and right ureteral stent insertion. Today the patient was seen by general surgery on consultation, and became quite concerned about his colonic distention as the patient may be developing a toxic megacolon. Hence recommended transfer to the ICU. I did evaluate the patient on the floor, he is on room air, comfortable, blood pressure is soft, patient is not in any distress but he does seem to be a bit lethargic, and profoundly weak. Hence recommended that we monitor the patient in the ICU and I transferred the patient after my evaluation. Labs today showed significant leukocytosis/leukemoid reaction with WBC count of 65.5, hemoglobin 13.7. Sodium is a bit low at 127 BUN is 52 creatinine 1.35, bicarb is 18 anion gap is normal. Lactic acid yesterday was 1.8. Patient was reevaluated today on 11/01/2023, patient remains in the ICU, he made a significant clinical improvement over the last 24 hours. Blood pressure remained stable patient denies any nausea vomiting abdominal pain, his clinical abdominal findings seem to be benign today. Patient remains on IV fluid at 100 cc/h in the form of 0.9 normal saline, he has a fecal system in place and has no evidence of bleeding, stools are loose, no GI bleeding, and no black or tarry stools. Continues to have leukocytosis/leukemoid reaction with WBC count of 65.9 hemoglobin 15.8 sodium is better today up to 129 bicarb remains a bit low at 16 BUN is 53 creatinine 1.04, improved compared to yesterday creatinine of 1. 35. Patient did receive the fluid boluses yesterday for slightly elevated lactic acid. And clearly the patient does not need surgical intervention at this point. Lactic acid yesterday was 1.2 went down from 1.8. Flatplate of the abdomen yesterday showed nonspecific bowel gas pattern without radiographic evidence of acute process. The patient is seen today November 02, 2023 in follow-up in the intensive care unit. He is currently awake and alert in no acute distress. He is maintaining good O2 saturations in the 90s on room air. He has normal staying at 100 MLS per hour. He remains on oral vancomycin, cefepime, Flagyl, Dificid for his C. difficile colitis and urinary tract infection. He did undergo ureteral stenting on 10/30/2023. Urine culture was positive for Pseudomonas aeruginosa. Blood cultures revealing no growth. White count 53.3. Hemoglobin 13.3. Platelets 289. Sodium 129. Potassium 3.8. Bicarb 17. BUN 51. Creatinine 0.99. Glucose 116. He is afebrile. Hemodynamically stable. The patient is seen today November 05, 2023 in follow-up on the regular medical floor. Is awake and alert in no acute distress. Resting in bed. He denies any worsening shortness of breath, cough or congestion. Maintaining O2 saturations in the 90s on room air. He is afebrile. Hemodynamically stable. Urine culture was positive for Pseudomonas aeruginosa. Blood cultures revealed no growth. White count 38.9. Hemoglobin 14.5. Platelets 318. Sodium 131. Potassium 4.5. Bicarb 15. BUN 31. Creatinine 0.8. Glucose 136. He is continued on cefepime, Flagyl, Zosyn and Dificid. Heparin for DVT prophylaxis. The patient is seen today November 06, 2023 in follow-up on the regular medical floor. He is resting comfortably in bed. Awake and alert in no acute distress. He is receiving normal saline at KVO. He is continued on cefepime, Dificid, Flagyl and vancomycin. He did have Pseudomonas in the urine. No new labs today. Recent white count was 30.9. Heparin for DVT prophylaxis. The patient is seen today November 07, 2023 in follow-up on the regular medical floor. He is awake and alert in no acute distress. Resting quite comfortably in bed. He continues to maintain good O2 saturations in the 90s on room air. No IV fluids. He remains on cefepime, Flagyl, vancomycin. Heparin for DVT prophylaxis. Follow-up blood cultures revealed no growth. Urine culture was positive for Pseudomonas aeruginosa. White count 23.0. Hemoglobin 16.2. Platelets 323. Sodium 131. Potassium 4.7. Bicarb 19. BUN 27. Creatinine 0.69. The patient is seen today November 17, 2023 in follow-up on the regular medical floor. He is awake and alert in no acute distress. He is being treated for C. difficile colitis. He remains on Dificid. He is also requiring a Lasix drip currently at 10 mg/h. He is currently in a -2.7 L balance. Garcia catheter remains in place. ET scan of the abdomen last evening revealed a small right and small to moderate left pleural effusion with adjacent atelectasis. Moderate to severe edema seen in the left more than right body wall suggesting third spacing of fluids. No evidence of bowel obstruction, free fluid or free air. Moderate amount of stool throughout the colon. Numerous diverticuli in the descending and sigmoid colon, mild inflammatory changes throughout these colonic segments. Sodium 134. Potassium 3.3. Bicarb 32. BUN 19. Creatinine 0.8. Glucose 121. Heparin for DVT prophylaxis. The patient is seen today November 18, 2023 in follow-up on the regular medical floor. He is currently resting in bed. Awake and alert in no acute distress. He is maintaining O2 saturations in the 90s on 2 L/min per nasal cannula. He denies any worsening shortness of breath. No chest pain. No abdominal pain. He remains on a Lasix drip at 10 mg/h. He is currently in a -3.1 L balance. He remains on Dificid. Sodium 134. Potassium 3.1. Bicarb 35. BUN 19. Creatinine 0.7. Glucose 124. The patient is seen today November 19, 2023 in follow-up on the regular medical floor. He is awake and alert in no acute distress. Currently resting comfortably in bed. Denies any worsening shortness of breath, cough or congestion. Maintaining O2 saturations in the 90s on 2 L/min per nasal cannula. He is afebrile. Hemodynamically stable. Blood cultures revealed no growth. Sodium 135. Potassium 2.9. Bicarb 37. BUN 17. Creatinine 0.7. Glucose 111. His Lasix drip was discontinued. He is ordered Lasix 80 mg IV every 8 hours per nephrology. Heparin for DVT prophylaxis. Remains on Dificid. The patient is seen today November 20, 2023 in follow-up on the regular medical floor. He is sitting up in bed. Awake and alert in no acute distress. Denies any worsening shortness of breath, cough or congestion. Continued O2 saturations in the 90s on 2 L/min per nasal cannula. Has been afebrile. Hemodynamically stable. He remains on Lasix 80 mg IV every 8 hours per nephrology. Currently in a -2 L balance. Indwelling catheter remains in place. A midline has been placed. He remains on Dificid and Questran. Heparin for DVT prophylaxis. The patient is seen today November 21, 2023 in follow-up on the regular medical floor. He is awake and alert in no acute distress. Resting in bed. He has been reluctant to get up out of bed even with assistance. He will sit upright in chair mode while in the bed at times. Labs pending. He is continued on Lasix 80 mg IV every 8 hours. Heparin for DVT prophylaxis. Currently in a -2.3 L balance. He remains on Dificid and Questran. The patient is seen today November 22, 2023 in follow-up on the regular medical floor. He is resting in bed. He has been refusing to get up out of bed. He denies any worsening shortness of breath, cough or congestion. He is maintaining O2 saturations in the 90s on 2 L/min per nasal cannula. He is afebrile. Hemodynamically stable. Culture was positive for Pseudomonas aeruginosa and month ago. Blood cultures revealed no growth. White count 10.8. Hemoglobin 11.7. Platelets 256. Sodium 136. Potassium 2.9. Bicarb 39. BUN 15. Creatinine 0.6. Remains on Questran. Completed Dificid. Heparin for DVT prophylaxis. Continued on IV diuretics per nephrology. He is currently in a - 3.6 L balance. Garcia catheter remains in place. Objective - Vital Signs Vital signs: Vital Signs Temp 97.9 F 11/22/23 14:00 Pulse 78 11/22/23 14:00 Resp 16 11/22/23 14:00 BP 100/65 11/22/23 14:00 Pulse Ox 95 11/22/23 14:00 FiO2 Intake & Output 11/21/23 11/22/23 11/22/23 18:59 06:59 18:59 Intake Total 660 Output Total 2950 1400 Balance -2290 -1400 Intake: Oral 660 Output: Urine 2950 1400 Other: Voiding Method Indwelling Catheter Indwelling Catheter Indwelling Catheter # Bowel Movements 1 ABP, PAP, CO, CI - Last Documented Arterial Blood Pressure 73/52 - Exam GENERAL EXAM: Alert, oriented 77-year-old male, remains in bed, on 2 L nasal cannula, in no apparent distress. HEAD: Normocephalic. EYES: Normal reaction of pupils, equal size. NOSE: Clear with pink turbinates. THROAT: No erythema or exudates. NECK: No masses, no JVD. CHEST: No chest wall deformity. LUNGS: Equal air entry with faint basilar crackles. CVS: S1 and S2 normal with no audible murmur, regular rhythm. ABDOMEN: Distended. No hepatosplenomegaly, normal bowel sounds, no guarding or rigidity. SPINE: No scoliosis or deformity SKIN: No rashes CENTRAL NERVOUS SYSTEM: No focal deficits, tone is normal in all 4 extremities. EXTREMITIES: There is 1+ peripheral edema. No clubbing, no cyanosis. Peripheral pulses are intact. - Labs CBC & Chem 7: 11/22/23 04:15 11/22/23 04:15 Labs: Abnormal Lab Results - Last 24 Hours (Table) 11/21/23 11/21/23 11/22/23 Range/Units 12:09 19:10 04:15 WBC 10.80 H (4.50-10.00) X 10*3/uL RBC 3.63 L (4.40-5.60) X 10*6/uL Hgb 11.7 L (13.0-17.0) g/dL Hct 36.5 L (39.6-50.0) % MCV 100.6 H (80.0-97.0) FL MCH 32.2 H (27.0-32.0) pg MPV 9.2 L (9.5-12.2) FL Neutrophils # (Manual) 8.10 H (1.80-7.70) X 10*3/uL Lymphocytes # (Manual) 0.76 L (0.90-5.00) X 10*3/uL Eosinophils # (Manual) 0.43 H (0.04-0.35) X 10*3/uL Sodium 129 L (137-145) mmol/L Potassium (3.5-5.5) mmol/L Chloride (96-109) mmol/L Carbon Dioxide 42 H* (22-30) mmol/L BUN/Creatinine Ratio (12.00-20.00) Ratio Glucose (70-110) mg/dL Calcium (8.7-10.3) mg/dL 11/22/23 Range/Units 04:15 WBC (4.50-10.00) X 10*3/uL RBC (4.40-5.60) X 10*6/uL Hgb (13.0-17.0) g/dL Hct (39.6-50.0) % MCV (80.0-97.0) FL MCH (27.0-32.0) pg MPV (9.5-12.2) FL Neutrophils # (Manual) (1.80-7.70) X 10*3/uL Lymphocytes # (Manual) (0.90-5.00) X 10*3/uL Eosinophils # (Manual) (0.04-0.35) X 10*3/uL Sodium (137-145) mmol/L Potassium 2.9 L (3.5-5.5) mmol/L Chloride 87 L (96-109) mmol/L Carbon Dioxide 38.8 H (22-30) mmol/L BUN/Creatinine Ratio 25.33 H (12.00-20.00) Ratio Glucose 133 H (70-110) mg/dL Calcium 8.5 L (8.7-10.3) mg/dL Assessment and Plan Assessment: Acute sepsis secondary to C. difficile colitis and pseudomonal urinary tract infection, patient has been treated with cefepime, vancomycin orally, Flagyl. Completed Dificid and remains on Questran None anion gap metabolic acidosis, initially required by bicarb replacement, recovered Hypovolemic hyponatremia secondary to diarrhea History of congestive heart failure with preserved ejection fraction, currently on IV Lasix Obstructive uropathy and hydronephrosis requiring cystoscopy and right ureteral stent insertion on 10/30/23 Morbid obesity History of obstructive sleep apnea Generalized anasarca Hyponatremia Acute kidney injury, resolved Urinary tract infection secondary to Pseudomonas aeruginosa Morbid obesity with a BMI of 59.7 Plan: The patient was seen and evaluated Medications and labs reviewed Remains on IV diuretics Remains in a negative balance Plan is for [facility] on the [place] at discharge I have personally seen and examined the patient, performed the documentation and the assessment and plan as written. Number of minutes spent on the visit: 10.
--- NOTE | 2023-11-22 17:20 | P.PN ---
Subjective patient is seen for follow-up for hyponatremia. Lasix drip was discontinued. Maintained on IV Lasix 80 mg every 8 hours 24-hour urine output at 4.3 L. Maintained on Diamox for metabolic alkalosis. No significant complaints. Objective - Vital Signs Vital signs: Vital Signs Temp 97.9 F 11/22/23 14:00 Pulse 78 11/22/23 14:00 Resp 16 11/22/23 14:00 BP 100/65 11/22/23 14:00 Pulse Ox 94 L 11/22/23 17:09 FiO2 Intake & Output 11/21/23 11/22/23 11/22/23 18:59 06:59 18:59 Intake Total 660 Output Total 2950 1400 Balance -2290 -1400 Intake: Oral 660 Output: Urine 2950 1400 Other: Voiding Method Indwelling Catheter Indwelling Catheter Indwelling Catheter # Bowel Movements 1 ABP, PAP, CO, CI - Last Documented Arterial Blood Pressure 73/52 - Exam patient is sleeping, comfortable, no acute distress. morbidly obese Examination of the heart S1 and S2 Examination of the lungs decreased breath sounds at the bases Abdomen is soft nontender Examination of lower extremities shows 2-3+ edema bilaterally [employer] exam grossly intact - Labs CBC & Chem 7: 11/22/23 04:15 11/22/23 04:15 Labs: Abnormal Lab Results - Last 24 Hours (Table) 11/21/23 11/22/23 11/22/23 Range/Units 19:10 04:15 04:15 WBC 10.80 H (4.50-10.00) X 10*3/uL RBC 3.63 L (4.40-5.60) X 10*6/uL Hgb 11.7 L (13.0-17.0) g/dL Hct 36.5 L (39.6-50.0) % MCV 100.6 H (80.0-97.0) FL MCH 32.2 H (27.0-32.0) pg MPV 9.2 L (9.5-12.2) FL Neutrophils # (Manual) 8.10 H (1.80-7.70) X 10*3/uL Lymphocytes # (Manual) 0.76 L (0.90-5.00) X 10*3/uL Eosinophils # (Manual) 0.43 H (0.04-0.35) X 10*3/uL Sodium 129 L (137-145) mmol/L Potassium 2.9 L (3.5-5.5) mmol/L Chloride 87 L (96-109) mmol/L Carbon Dioxide 38.8 H (21.6-31.8) mmol/L BUN/Creatinine Ratio 25.33 H (12.00-20.00) Ratio Glucose 133 H (70-110) mg/dL Calcium 8.5 L (8.7-10.3) mg/dL Assessment and Plan Assessment: 1. Hypervolemic hyponatremia. Improved with diuresis. TSH normal. Urine sodium less than 20 and urine osmolality 512. 2. Volume overload. Improving with diuresis. 3. Pseudomonas UTI s/p antibiotics. 4. C. difficile colitis on Dificid. ID following. 5. Acute on chronic diastolic CHF. 6. Morbid obesity. 7. Elevated kappa light chains. Seen by hematology. 8. Metabolic acidosis from IV fluids and GI losses. Resolved. 9. Right-sided hydronephrosis due to UPJ calculus status post cystoscopy with right ureteral stent placement. Urology following. 10. Hypokalemia from diuresis. 11. Metabolic alkalosis secondary to diuresis, improved with Diamox Plan: Continue with current dose of IV Lasix. Consider decreasing dose tomorrow. Continue with Diamox for metabolic alkalosis Replace potassium Repeat labs in a.m. Continue with fluid restriction.
[2023-11-23 10:53] LABS: Basophils # (A) 0.1 k/uL (0-0.2); Basophils % (A) 1 %; Eosinophils # (A) 0.6 k/uL (0-0.7); Eosinophils % (A) 5 %; HCT 36.6 % (39.0-53.0); HGB 11.3 gm/dL (13.0-17.5); Lymphocytes # (A) 1.5 k/uL (1.0-4.8); Lymphocytes % (A) 14 %; MCH 31.9 pg (25.0-35.0); MCHC 30.9 g/dL (31.0-37.0); MCV 103.2 fL (80.0-100.0); Macrocytosis Slight; Mean Platelet Volume 7.5; Monocytes # (A) 0.6 k/uL (0-1.0); Monocytes % (A) 6 %; Neutrophils # (A) 7.7 k/uL (1.3-7.7); Neutrophils % (A) 72 %; Platelet Count 244 k/uL (150-450); RBC 3.54 m/uL (4.30-5.90); RDW 14.1 % (11.5-15.5); WBC 10.7 k/uL (3.8-10.6)
[2023-11-23 11:03] LABS: African American GFR (CKD) >90 (>60 ml/min/1.73 sqM); Blood Urea Nitrogen 17 mg/dL (9-20); Calcium 8.3 mg/dL (8.4-10.2); Chloride 87 mmol/L (98-107); Glucose 151 mg/dL (74-99); Magnesium 2.1 mg/dL (1.6-2.3); Non-African American GFR(CKD) 84 (>60 ml/min/1.73 sqM); Potassium 3.3 mmol/L (3.5-5.1); Sodium 130 mmol/L (137-145)
[2023-11-23 11:14] LABS: Anion Gap 6 mmol/L; Carbon Dioxide 37 mmol/L (22-30)
--- NOTE | 2023-11-23 11:41 | P.PN ---
Subjective Patient is seen in follow-up for hyponatremia. Currently on IV Lasix. Sodium level 130. Nonoliguric. No diarrhea. Vital signs are stable. General: No acute distress. HEENT: Head exam is unremarkable. LUNGS: No audible rhonchi or wheezes. HEART: Rate and Rhythm are regular. ABDOMEN: Obese, nontender. EXTREMITITES: 1+ edema. Objective - Vital Signs Vital signs: Vital Signs Temp 98.4 F 11/23/23 07:53 Pulse 86 11/23/23 07:53 Resp 16 11/23/23 07:53 BP 95/59 11/23/23 07:53 Pulse Ox 96 11/23/23 07:53 FiO2 Intake & Output 11/22/23 11/23/23 11/23/23 18:59 06:59 18:59 Intake Total 720 Output Total 3500 2350 Balance -3500 -1630 Intake: Oral 720 Output: Urine 3500 2350 Other: Voiding Method Indwelling Catheter Indwelling Catheter Indwelling Catheter # Bowel Movements 1 1 ABP, PAP, CO, CI - Last Documented Arterial Blood Pressure 73/52 - Labs CBC & Chem 7: 11/23/23 10:20 11/23/23 10:20 Labs: Abnormal Lab Results - Last 24 Hours (Table) 11/22/23 11/22/23 11/23/23 Range/Units 04:15 17:37 10:20 WBC 10.7 H (3.8-10.6) k/uL RBC 3.54 L (4.30-5.90) m/uL Hgb 11.3 L (13.0-17.5) gm/dL Hct 36.6 L (39.0-53.0) % MCV 103.2 H (80.0-100.0) fL MCHC 30.9 L (31.0-37.0) g/dL Lymphocytes # (Manual) 0.76 L (0.90-5.00) X 10*3/uL Eosinophils # (Manual) 0.43 H (0.04-0.35) X 10*3/uL Promyelocytes # (Man) 0.32 H (0) k/uL Sodium (137-145) mmol/L Potassium 3.4 L (3.5-5.1) mmol/L Chloride (98-107) mmol/L Carbon Dioxide (22-30) mmol/L Glucose (74-99) mg/dL Calcium (8.4-10.2) mg/dL 11/23/23 Range/Units 10:20 WBC (3.8-10.6) k/uL RBC (4.30-5.90) m/uL Hgb (13.0-17.5) gm/dL Hct (39.0-53.0) % MCV (80.0-100.0) fL MCHC (31.0-37.0) g/dL Lymphocytes # (Manual) (0.90-5.00) X 10*3/uL Eosinophils # (Manual) (0.04-0.35) X 10*3/uL Promyelocytes # (Man) (0) k/uL Sodium 130 L (137-145) mmol/L Potassium 3.3 L (3.5-5.1) mmol/L Chloride 87 L (98-107) mmol/L Carbon Dioxide 37 H (22-30) mmol/L Glucose 151 H (74-99) mg/dL Calcium 8.3 L (8.4-10.2) mg/dL Assessment and Plan Plan: Assessment: 1. Hypervolemic hyponatremia. Improved with diuresis. TSH normal. Urine sodium less than 20 and urine osmolality 512. Sodium level 130 today. 2. Volume overload. Improving with diuresis. 3. Pseudomonas UTI s/p antibiotics. 4. C. difficile colitis s/p Dificid. ID following. 5. Acute on chronic diastolic CHF. 6. Morbid obesity. 7. Elevated kappa light chains. Seen by hematology. 8. Metabolic acidosis from IV fluids and GI losses. Resolved. Now alkalotic and on Diamox and hypokalemia/hypochloremia. 9. Right-sided hydronephrosis due to UPJ calculus status post cystoscopy with right ureteral stent placement. Urology following. 10. Hypokalemia from diuresis. Plan: Stop IV Lasix. Start torsemide 40 mg once daily. Replace potassium and add maintenance supplementation. Will benefit from SGLT2 inhibitor. Hold off for now due to UTI this admission. Low-salt diet and 1500 cc fluid restriction. Repeat BMP and magnesium level 2 to 3 days postdischarge. Follow-up outpatient in 1 week. Plan for subacute rehab upon discharge. Case discussed with primary team.
[2023-11-23] MEDS: POTASSIUM CHLORIDE ER 20 MEQ TAB.ER PO SCH (12:16)
--- NOTE | 2023-11-23 13:21 | P.PN ---
Subjective Progress Note Date: 11/23/23 Hospital Course: Patient is a pleasant 77-year-old male with a past medical history of congestive systolic heart failure with previously known EF of 40 to 45%, hypertension, GERD, obstructive sleep apnea, BPH requiring frequent straight catheterizations and at times Garcia catheter, chronic back pain with bilateral lower extremity neuropathies and restless legs, macular degeneration, and bilateral cataract removal with lens implants. He presented to the emergency department on 10/26/2023 with a chief complaint of generalized weakness. He was febrile on arrival. EKG showed sinus rhythm. Chest x-ray completed showing mild cardiomegaly with overall hazy densities related to overlying soft tissue/body habitus. WBC 14.4 and macrocytosis with MCV of 100.2. BMP showing hyponatremia with sodium of 134 otherwise normal findings. Lactic acid was 1.3. Magnesium 1.8. Liver profile unremarkable. Urinalysis contaminated specimen but appears positive for infection, urine kappa light 6.17 and urine free lambda light 0.68. Free kappa LC quant was 2.06. Influenza A, influenza B, RSV, and COVID were negative. Patient was started on IV antibiotics with Rocephin admitted under our services for acute cystitis and generalized weakness. Echocardiogram was completed showing preserved EF of 55% and mildly increased left ventricular wall thickness. Urine culture positive for Pseudomonas aeruginosa. Blood culture showing no growth to date. C. difficile positive. Started on oral vancomycin in addition to his cefepime for treatment of Pseudomonas UTI. Underwent right ureteral stent insertion by urology. Patient's condition worsened and WBC count significantly increasing concerning for fulminant C. difficile. Patient was started on IV Flagyl in addition to oral vancomycin and a CT abdomen and pelvis was completed. CT abdomen and pelvis revealed severe pancolitis with colonic distention up to 7.5 cm with no pneumatosis or free air noted at this time. Consult was placed to general surgery and infectious disease. Patient was started on vancomycin enemas and fidaxomicin in addition to oral vancomycin and IV Flagyl. He was evaluated by general surgery team who stated that taking p atient to the OR could result in significant morbidity and/or mortality and recommending continuation of appropriate antibiotics and resuscitation measures at this time. 10/31/2023 patient was transferred to the ICU. Patient's condition improving and he was transferred back to stepdown unit on 11/02/2023. Garcia catheter still in place. Fecal management system discontinued. Continues to have frequent bowel movements. Nephrology was consulted for worsening hyponatremia and volume overload. Started on Lasix drip. Also status post IV albumin. Vancomycin discontinued, started on fidaxomicin. Repeat CT abdomen pelvis shows small right and small to moderate left pleural effusion, small to moderate volume pericardial fluid, moderate to severe edema of the right body wall suggesting third spacing, moderate amount of stool throughout the colon, right double J ureteral stent. Bowel movements slowing down. Subjective: Patient seen and examined at bedside. No acute events overnight. Bowel movement slowing down. Urine catheter in place. Negative multiple liters since admission. Nephrology saw patient and transitioned to PO torsemide. Pt is medically stable for discharge, pending placement and insurance auth per . General: Nontoxic, no distress, appears at stated age, morbidly obese, generalized anasarca Derm: Warm, dry Head: Atraumatic, normocephalic, symmetric Eyes: EOMI, no lid lag, anicteric sclera Mouth: No lip lesion, mucus membranes moist Cardiovascular: S1S2 reg, no murmur Lungs: Bibasilar rales, no accessory muscle use, supplemental oxygen Abdominal: Soft, nontender to palpation, no guarding, no appreciable organomegaly Ext: No gross muscle atrophy, no contractures Neuro: CN II-XI grossly intact, no focal neuro deficits Psych: Alert, oriented, appropriate affect Assessment and Plan: Hyponatremia, hypervolemic Acute on chronic diastolic CHF exacerbation Pleural effusions Pericardial effusion Anasarca secondary to above albuminemia Non-anion gap metabolic acidosis secondary to diarrhea, resolved Hypokalemia -Nephrology following, torsemide 40mg daily -Status post IV albumin once during this admission -Ensure supplements increased to 3 times daily with meals Persistent diarrhea, resolving -CT abdomen pelvis shows moderate colonic stool, less likely colitis Sepsis secondary to Pseudomonas UTI, present on admission, now resolved Hydronephrosis with renal and ureteral calculus obstruction status post ureteral stent Hospital course complicated by fulminant C. difficile infection History of BPH -He is status post oral vancomycin, and now on fidaxomicin 200 twice daily for likely another 10 days, continue cholestyramine 4 g twice daily -Completed course of IV cefepime and IV Flagyl -ID following -Urology consulted: Garcia catheter to remain until patient gets home, may resume intermittent catheterization at that time, ureteral stent to be taken out in approximately 6 weeks when patient will undergo cystoscopy and removal of bladder calculus and right renal calculus. 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 Elevated light chains Low QRS voltage on EKG -Urine kappa light 6.17 and urine free lambda light 0.68. Free kappa LC quant was 2.06. -Hematology evaluated, recommend follow-up in their clinic in 3 months to repeat paraproteinemia labs Obstructive sleep apnea -Continue CPAP nightly and while napping. Morbid obesity, class III with BMI 52.8 kg/m -Recommend outpatient structured weight management program. Narcolepsy -Continue home modafinil 300 mg daily DVT ppx: Subcu heparin Code status: Full code Anticipated discharge place: Pending clinical course Anticipated discharge time: Pending clinical course Objective - Vital Signs Vital signs: Vital Signs Temp 98.4 F 11/23/23 07:53 Pulse 86 11/23/23 07:53 Resp 16 11/23/23 07:53 BP 95/59 11/23/23 07:53 Pulse Ox 96 11/23/23 07:53 FiO2 Intake & Output 11/22/23 11/23/23 11/23/23 18:59 06:59 18:59 Intake Total 720 Output Total 3500 2350 Balance -3500 -1630 Intake: Oral 720 Output: Urine 3500 2350 Other: Voiding Method Indwelling Catheter Indwelling Catheter Indwelling Catheter # Bowel Movements 1 1 ABP, PAP, CO, CI - Last Documented Arterial Blood Pressure 73/52 - Labs CBC & Chem 7: 11/23/23 10:20 11/23/23 10:20 Labs: Abnormal Lab Results - Last 24 Hours (Table) 11/22/23 11/22/23 11/23/23 Range/Units 04:15 17:37 10:20 WBC 10.7 H (3.8-10.6) k/uL RBC 3.54 L (4.30-5.90) m/uL Hgb 11.3 L (13.0-17.5) gm/dL Hct 36.6 L (39.0-53.0) % MCV 103.2 H (80.0-100.0) fL MCHC 30.9 L (31.0-37.0) g/dL Promyelocytes # (Man) 0.32 H (0) k/uL Sodium (137-145) mmol/L Potassium 3.4 L (3.5-5.1) mmol/L Chloride (98-107) mmol/L Carbon Dioxide (22-30) mmol/L Glucose (74-99) mg/dL Calcium (8.4-10.2) mg/dL 11/23/23 Range/Units 10:20 WBC (3.8-10.6) k/uL RBC (4.30-5.90) m/uL Hgb (13.0-17.5) gm/dL Hct (39.0-53.0) % MCV (80.0-100.0) fL MCHC (31.0-37.0) g/dL Promyelocytes # (Man) (0) k/uL Sodium 130 L (137-145) mmol/L Potassium 3.3 L (3.5-5.1) mmol/L Chloride 87 L (98-107) mmol/L Carbon Dioxide 37 H (22-30) mmol/L Glucose 151 H (74-99) mg/dL Calcium 8.3 L (8.4-10.2) mg/dL
[2023-11-24 08:43] LABS: HCT 32.8 % (39.6-50.0); HGB 10.8 g/dL (13.0-17.0); MCH 32.5 pg (27.0-32.0); MCHC 32.9 g/dL (32.0-37.0); MCV 98.8 FL (80.0-97.0); Mean Platelet Volume 9.4 FL (9.5-12.2); NRBC Per 100 WBC 0 X 10*3/uL (0.00-0.01); Platelet Count 285 X 10*3/uL (140-440); RBC 3.32 X 10*6/uL (4.40-5.60); RDW 14.1 % (11.5-14.5); WBC 10.61 X 10*3/uL (4.50-10.00)
[2023-11-24] MEDS: POTASSIUM CHLORIDE ER 20 MEQ TAB.ER PO SCH (08:49)
[2023-11-24] MEDS: TORSEMIDE 20 MG TAB PO SCH (08:50)
[2023-11-24 08:54] LABS: BUN/Creat Ratio 27.33 Ratio (12.00-20.00); Blood Urea Nitrogen 16.4 mg/dL (9.0-27.0); Calcium 8.3 mg/dL (8.7-10.3); Carbon Dioxide 36.6 mmol/L (21.6-31.8); Chloride 90 mmol/L (96-109); Glucose 117 mg/dL (70-110); Magnesium 2.2 mg/dL (1.5-2.4); Potassium 3.4 mmol/L (3.5-5.5); Sodium 134 mmol/L (135-145)
[2023-11-24 09:45] LABS: Basophils # (M) 0 X 10*3/uL (0.00-0.10)
[2023-11-24 10:11] LABS: Eosinophils # (M) 0.42 X 10*3/uL (0.04-0.35); Lymphocytes # (M) 0.85 X 10*3/uL (0.90-5.00); Metamyelocytes % 3 % (0-0); Monocytes # (M) 0.53 X 10*3/uL (0.20-1.00); Myelocytes % 3 % (0-0); Neutrophils # (M) 8.06 X 10*3/uL (1.80-7.70); Neutrophils % (M) 76 %; Promyelocytes # (M) 0.11 k/uL (0); Promyelocytes % 1 %
--- NOTE | 2023-11-24 10:22 | P.PN ---
Subjective Patient is seen in follow-up for hyponatremia. Sodium level 134. On oral torsemide. Nonoliguric. No diarrhea. Vital signs are stable. General: No acute distress. HEENT: Head exam is unremarkable. LUNGS: No audible rhonchi or wheezes. HEART: Rate and Rhythm are regular. ABDOMEN: Obese, nontender. EXTREMITITES: 1+ edema. Objective - Vital Signs Vital signs: Vital Signs Temp 98.2 F 11/24/23 08:00 Pulse 78 11/24/23 08:00 Resp 18 11/24/23 08:00 BP 104/63 11/24/23 08:00 Pulse Ox 96 11/24/23 09:14 FiO2 Intake & Output 11/23/23 11/24/23 11/24/23 18:59 06:59 18:59 Output Total 3500 1100 Balance -3500 -1100 Output: Urine 3500 1100 Other: Voiding Method Indwelling Catheter Indwelling Catheter Indwelling Catheter # Bowel Movements 2 ABP, PAP, CO, CI - Last Documented Arterial Blood Pressure 73/52 - Labs CBC & Chem 7: 11/24/23 04:43 11/24/23 04:43 Labs: Abnormal Lab Results - Last 24 Hours (Table) 11/23/23 11/23/23 11/24/23 Range/Units 10:20 10:20 04:43 WBC 10.7 H 10.61 H (3.8-10.6) k/uL RBC 3.54 L 3.32 L (4.30-5.90) m/uL Hgb 11.3 L 10.8 L (13.0-17.5) gm/dL Hct 36.6 L 32.8 L (39.0-53.0) % MCV 103.2 H 98.8 H (80.0-100.0) fL MCH 32.5 H (27.0-32.0) pg MCHC 30.9 L (31.0-37.0) g/dL MPV 9.4 L (9.5-12.2) FL Neutrophils # (Manual) 8.06 H (1.80-7.70) X 10*3/uL Lymphocytes # (Manual) 0.85 L (0.90-5.00) X 10*3/uL Eosinophils # (Manual) 0.42 H (0.04-0.35) X 10*3/uL Sodium 130 L (137-145) mmol/L Potassium 3.3 L (3.5-5.1) mmol/L Chloride 87 L (98-107) mmol/L Carbon Dioxide 37 H (22-30) mmol/L BUN/Creatinine Ratio (12.00-20.00) Ratio Glucose 151 H (74-99) mg/dL Calcium 8.3 L (8.4-10.2) mg/dL 11/24/23 Range/Units 04:43 WBC (3.8-10.6) k/uL RBC (4.30-5.90) m/uL Hgb (13.0-17.5) gm/dL Hct (39.0-53.0) % MCV (80.0-100.0) fL MCH (27.0-32.0) pg MCHC (31.0-37.0) g/dL MPV (9.5-12.2) FL Neutrophils # (Manual) (1.80-7.70) X 10*3/uL Lymphocytes # (Manual) (0.90-5.00) X 10*3/uL Eosinophils # (Manual) (0.04-0.35) X 10*3/uL Sodium 134 L (137-145) mmol/L Potassium 3.4 L (3.5-5.1) mmol/L Chloride 90 L (98-107) mmol/L Carbon Dioxide 36.6 H (22-30) mmol/L BUN/Creatinine Ratio 27.33 H (12.00-20.00) Ratio Glucose 117 H (74-99) mg/dL Calcium 8.3 L (8.4-10.2) mg/dL Assessment and Plan Plan: Assessment: 1. Hypervolemic hyponatremia. Improved with diuresis. TSH normal. Urine sodium less than 20 and urine osmolality 512. Sodium level 134 today. 2. Volume overload. Improving with diuresis. 3. Pseudomonas UTI s/p antibiotics. 4. C. difficile colitis s/p Dificid. ID following. 5. Acute on chronic diastolic CHF. 6. Morbid obesity. 7. Elevated kappa light chains. Seen by hematology. 8. Metabolic acidosis from IV fluids and GI losses. Resolved. Now alkalotic and s/p Diamox and hypokalemia/hypochloremia. 9. Right-sided hydronephrosis due to UPJ calculus status post cystoscopy with right ureteral stent placement. Urology following. 10. Hypokalemia from diuresis. Replaced. On maintenance supplementation. Plan: Maintain torsemide. 40 mill equivalents additional potassium supplementation today. Will benefit from SGLT2 inhibitor. Hold off for now due to UTI this admission. Low-salt diet and 1500 cc fluid restriction. Repeat BMP and magnesium level 2 to 3 days postdischarge. Follow-up outpatient in 1 week. Plan for subacute rehab upon discharge. Case discussed with primary team.
[2023-11-24] MEDS: POTASSIUM CHLORIDE ER 20 MEQ TAB.ER PO STA (10:37)
--- NOTE | 2023-11-24 14:41 | P.PN ---
Subjective Progress Note Date: 11/24/23 Hospital Course: Patient is a pleasant 77-year-old male with a past medical history of congestive systolic heart failure with previously known EF of 40 to 45%, hypertension, GERD, obstructive sleep apnea, BPH requiring frequent straight catheterizations and at times Garcia catheter, chronic back pain with bilateral lower extremity neuropathies and restless legs, macular degeneration, and bilateral cataract removal with lens implants. He presented to the emergency department on 10/26/2023 with a chief complaint of generalized weakness. He was febrile on arrival. EKG showed sinus rhythm. Chest x-ray completed showing mild cardiomegaly with overall hazy densities related to overlying soft tissue/body habitus. WBC 14.4 and macrocytosis with MCV of 100.2. BMP showing hyponatremia with sodium of 134 otherwise normal findings. Lactic acid was 1.3. Magnesium 1.8. Liver profile unremarkable. Urinalysis contaminated specimen but appears positive for infection, urine kappa light 6.17 and urine free lambda light 0.68. Free kappa LC quant was 2.06. Influenza A, influenza B, RSV, and COVID were negative. Patient was started on IV antibiotics with Rocephin admitted under our services for acute cystitis and generalized weakness. Echocardiogram was completed showing preserved EF of 55% and mildly increased left ventricular wall thickness. Urine culture positive for Pseudomonas aeruginosa. Blood culture showing no growth to date. C. difficile positive. Started on oral vancomycin in addition to his cefepime for treatment of Pseudomonas UTI. Underwent right ureteral stent insertion by urology. Patient's condition worsened and WBC count significantly increasing concerning for fulminant C. difficile. Patient was started on IV Flagyl in addition to oral vancomycin and a CT abdomen and pelvis was completed. CT abdomen and pelvis revealed severe pancolitis with colonic distention up to 7.5 cm with no pneumatosis or free air noted at this time. Consult was placed to general surgery and infectious disease. Patient was started on vancomycin enemas and fidaxomicin in addition to oral vancomycin and IV Flagyl. He was evaluated by general surgery team who stated that taking patient to the OR could result in significant morbidity and/or mortality and recommending continuation of appropriate antibiotics and resuscitation measures at this time. 10/31/2023 patient was transferred to the ICU. Patient's condition improving and he was transferred back to stepdown unit on 11/02/2023. Garcia catheter still in place. Fecal management system discontinued. Continues to have frequent bowel movements. Nephrology was consulted for worsening hyponatremia and volume overload. Started on Lasix drip. Also status post IV albumin. Vancomycin discontinued, started on fidaxomicin. Repeat CT abdomen pelvis shows small right and small to moderate left pleural effusion, small to moderate volume pericardial fluid, moderate to severe edema of the right body wall suggesting third spacing, moderate amount of stool throughout the colon, right double J ureteral stent. Bowel movements slowing down. Pending rehab placement. Subjective: Patient seen and examined at bedside. No acute events overnight. Bowel movement slowing down. Urine catheter in place. Negative multiple liters since admission. Nephrology saw patient and transitioned to PO torsemide. Pt is medically stable for discharge, pending insurance auth per . General: Nontoxic, no distress, appears at stated age, morbidly obese, generalized anasarca Derm: Warm, dry Head: Atraumatic, normocephalic, symmetric Eyes: EOMI, no lid lag, anicteric sclera Mouth: No lip lesion, mucus membranes moist Cardiovascular: S1S2 reg, no murmur Lungs: Bibasilar rales, no accessory muscle use, supplemental oxygen Abdominal: Soft, nontender to palpation, no guarding, no appreciable organomegaly Ext: No gross muscle atrophy, no contractures Neuro: CN II-XI grossly intact, no focal neuro deficits Psych: Alert, oriented, appropriate affect Assessment and Plan: Hyponatremia, hypervolemic Acute on chronic diastolic CHF exacerbation Pleural effusions Pericardial effusion Anasarca secondary to above albuminemia Non-anion gap metabolic acidosis secondary to diarrhea, resolved Hypokalemia -Nephrology following, torsemide 40mg daily, 40 mill equivalent oral potassium today -Status post IV albumin once during this admission -Ensure supplements increased to 3 times daily with meals Persistent diarrhea, resolving -CT abdomen pelvis shows moderate colonic stool, less likely colitis Sepsis secondary to Pseudomonas UTI, present on admission, now resolved Hydronephrosis with renal and ureteral calculus obstruction status post ureteral stent Hospital course complicated by fulminant C. difficile infection History of BPH -He is status post oral vancomycin, and oral fidaxomicin, continue cholestyramine 4 g twice daily -Completed course of IV cefepime and IV Flagyl -ID following -Urology consulted: Garcia catheter to remain until patient gets home, may resume intermittent catheterization at that time, ureteral stent to be taken out in approximately 6 weeks when patient will undergo cystoscopy and removal of bladder calculus and right renal calculus. 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 Elevated light chains Low QRS voltage on EKG -Urine kappa light 6.17 and urine free lambda light 0.68. Free kappa LC quant was 2.06. -Hematology evaluated, recommend follow-up in their clinic in 3 months to repeat paraproteinemia labs Obstructive sleep apnea -Continue CPAP nightly and while napping. Morbid obesity, class III with BMI 52.8 kg/m -Recommend outpatient structured weight management program. Narcolepsy -Continue home modafinil 300 mg daily DVT ppx: Subcu heparin Code status: Full code Anticipated discharge place: Pending clinical course Anticipated discharge time: Pending clinical course Objective - Vital Signs Vital signs: Vital Signs Temp 98.2 F 11/24/23 08:00 Pulse 78 11/24/23 08:00 Resp 18 11/24/23 08:00 BP 104/63 11/24/23 08:00 Pulse Ox 96 11/24/23 09:14 FiO2 Intake & Output 11/23/23 11/24/23 11/24/23 18:59 06:59 18:59 Output Total 3500 1100 Balance -3500 -1100 Output: Urine 3500 1100 Other: Voiding Method Indwelling Catheter Indwelling Catheter Indwelling Catheter # Bowel Movements 2 ABP, PAP, CO, CI - Last Documented Arterial Blood Pressure 73/52 - Labs CBC & Chem 7: 11/24/23 04:43 11/24/23 04:43 Labs: Abnormal Lab Results - Last 24 Hours (Table) 11/24/23 11/24/23 Range/Units 04:43 04:43 WBC 10.61 H (4.50-10.00) X 10*3/uL RBC 3.32 L (4.40-5.60) X 10*6/uL Hgb 10.8 L (13.0-17.0) g/dL Hct 32.8 L (39.6-50.0) % MCV 98.8 H (80.0-97.0) FL MCH 32.5 H (27.0-32.0) pg MPV 9.4 L (9.5-12.2) FL Neutrophils # (Manual) 8.06 H (1.80-7.70) X 10*3/uL Lymphocytes # (Manual) 0.85 L (0.90-5.00) X 10*3/uL Eosinophils # (Manual) 0.42 H (0.04-0.35) X 10*3/uL Sodium 134 L (135-145) mmol/L Potassium 3.4 L (3.5-5.5) mmol/L Chloride 90 L (96-109) mmol/L Carbon Dioxide 36.6 H (21.6-31.8) mmol/L BUN/Creatinine Ratio 27.33 H (12.00-20.00) Ratio Glucose 117 H (70-110) mg/dL Calcium 8.3 L (8.7-10.3) mg/dL
[2023-11-25 08:22] VITALS: BP 100/62; PULSE 75; RESP 16; TEMP 98.4
[2023-11-25 08:41] LABS: HCT 32.9 % (39.6-50.0); HGB 10.6 g/dL (13.0-17.0); MCH 32.7 pg (27.0-32.0); MCHC 32.2 g/dL (32.0-37.0); MCV 101.5 FL (80.0-97.0); Mean Platelet Volume 9.6 FL (9.5-12.2); NRBC Per 100 WBC 0 X 10*3/uL (0.00-0.01); Platelet Count 317 X 10*3/uL (140-440); RBC 3.24 X 10*6/uL (4.40-5.60); RDW 14.1 % (11.5-14.5); WBC 10.37 X 10*3/uL (4.50-10.00)
[2023-11-25 08:56] LABS: BUN/Creat Ratio 27.17 Ratio (12.00-20.00); Blood Urea Nitrogen 16.3 mg/dL (9.0-27.0); Calcium 8.4 mg/dL (8.7-10.3); Carbon Dioxide 34.6 mmol/L (21.6-31.8); Chloride 91 mmol/L (96-109); Glucose 109 mg/dL (70-110); Magnesium 2.3 mg/dL (1.5-2.4); Potassium 3.7 mmol/L (3.5-5.5); Sodium 135 mmol/L (135-145)
[2023-11-25 09:23] LABS: Neutrophils # (M) 7.88 X 10*3/uL (1.80-7.70); Neutrophils % (M) 76 %
--- NOTE | 2023-11-25 09:35 | P.PN ---
Subjective Progress Note Date: 11/24/23 Principal diagnosis: Reason for follow-up is C. difficile colitis UTI and leukocytosis Patient is a 77-year-old male with a past medical history significant for hypertension osteoarthritis sleep apnea reflux patient did have a BPH and self catheterize himself because of urine retention, presented to hospital after a fall with weakness he did have a positive UA and has been treated for a UTI also has significant diarrhea stool for C. difficile came back positive pro mpting this consultation. On today's evaluation that is 11/24/2023,the patient remains to be afebrile, patient is on room air not requiring supplemental oxygen and denies any shortness of breath no chest pain or cough.Patient denies having any nausea or vomiting, no abdominal pain and no diarrhea has been reported by the nursing staff. Patient white count is 10.61 creatinine is 0.6 Objective - Vital Signs Vital signs: Vital Signs Temp 98.2 F 11/24/23 08:00 Pulse 78 11/24/23 08:00 Resp 18 11/24/23 08:00 BP 104/63 11/24/23 08:00 Pulse Ox 96 11/24/23 09:14 FiO2 Intake & Output 11/23/23 11/24/23 11/24/23 18:59 06:59 18:59 Output Total 3500 1100 Balance -3500 -1100 Output: Urine 3500 1100 Other: Voiding Method Indwelling Catheter Indwelling Catheter Indwelling Catheter # Bowel Movements 2 ABP, PAP, CO, CI - Last Documented Arterial Blood Pressure 73/52 - Exam GENERAL DESCRIPTION: An elderly male lying in bed in no distress RESPIRATORY SYSTEM: Unlabored breathing , decreased breath sounds at bases HEART: S1 S2 regular rate and rhythm , ABDOMEN: Soft , mild distention and tenderness Extremities: 2+ edema feet - Labs CBC & Chem 7: 11/25/23 05:15 11/25/23 05:15 Labs: Abnormal Lab Results - Last 24 Hours (Table) 11/24/23 11/24/23 Range/Units 04:43 04:43 WBC 10.61 H (4.50-10.00) X 10*3/uL RBC 3.32 L (4.40-5.60) X 10*6/uL Hgb 10.8 L (13.0-17.0) g/dL Hct 32.8 L (39.6-50.0) % MCV 98.8 H (80.0-97.0) FL MCH 32.5 H (27.0-32.0) pg MPV 9.4 L (9.5-12.2) FL Neutrophils # (Manual) 8.06 H (1.80-7.70) X 10*3/uL Lymphocytes # (Manual) 0.85 L (0.90-5.00) X 10*3/uL Eosinophils # (Manual) 0.42 H (0.04-0.35) X 10*3/uL Sodium 134 L (135-145) mmol/L Potassium 3.4 L (3.5-5.5) mmol/L Chloride 90 L (96-109) mmol/L Carbon Dioxide 36.6 H (21.6-31.8) mmol/L BUN/Creatinine Ratio 27.33 H (12.00-20.00) Ratio Glucose 117 H (70-110) mg/dL Calcium 8.3 L (8.7-10.3) mg/dL Assessment and Plan (1) C. difficile colitis Current Visit: Yes Status: Acute Priority: Medium Code(s): A04.72 - ENTEROCOLITIS D/T CLOSTRIDIUM DIFFICILE, NOT SPCF RECUR SNOMED Code(s): 599301003 (2) Leukocytosis Current Visit: Yes Status: Acute Priority: Medium Code(s): D72.829 - ELEVATED WHITE BLOOD CELL COUNT, UNSPECIFIED SNOMED Code(s): 513402183 (3) Urinary tract infection Current Visit: Yes Status: Acute Priority: Medium Code(s): N39.0 - URINARY TRACT INFECTION, SITE NOT SPECIFIED SNOMED Code(s): 53999307 Plan: 1patient with a complicated history and this patient initially presented to the hospital with sepsis as the patient did have a fever elevated white count source likely UTI with urine culture finalized with Pseudomonas aeruginosa, patient did have a CT abdominal pelvis CT shows evidence of hydronephrosis and ureteral stone in this patient who is status post cystoscopy and ureteral stent placement patient is currently covered with the cefepime concerning for pyelonephritis/ complicated UTI, for which the patient has received adequate cefepime 2patient with C. difficile colitis, for the patient has received adequate oral/rectal vancomycin followed by a course of Dificid and is currently being monitored closed off antibiotic therapy Dictation was produced using [employer] software. please excuse any grammatical, word or spelling errors.
[2023-11-25 09:40] LABS: Eosinophils # (M) 0.73 X 10*3/uL (0.04-0.35); Lymphocytes # (M) 0.73 X 10*3/uL (0.90-5.00); Monocytes # (M) 0.73 X 10*3/uL (0.20-1.00); Myelocytes % 2 % (0-0); RBC Morphology Normal (Normal)
--- NOTE | 2023-11-25 11:32 | P.PN ---
Subjective Patient is seen in follow-up for hyponatremia. Sodium level 135. On oral torsemide. Nonoliguric. No diarrhea. Awaits discharge to rehab. Vital signs are stable. General: No acute distress. HEENT: Head exam is unremarkable. LUNGS: No audible rhonchi or wheezes. HEART: Rate and Rhythm are regular. ABDOMEN: Obese, nontender. EXTREMITITES: 1+ edema. Objective - Vital Signs Vital signs: Vital Signs Temp 98.4 F 11/25/23 06:30 Pulse 75 11/25/23 06:30 Resp 16 11/25/23 06:30 BP 100/62 11/25/23 06:30 Pulse Ox 96 11/25/23 08:17 FiO2 Intake & Output 11/24/23 11/25/23 11/25/23 18:59 06:59 18:59 Intake Total 100 500 100 Output Total 725 700 Balance -625 -200 100 Intake: Oral 100 500 100 Output: Urine 725 700 Other: Voiding Method Indwelling Catheter Indwelling Catheter Indwelling Catheter # Bowel Movements 2 ABP, PAP, CO, CI - Last Documented Arterial Blood Pressure 73/52 - Labs CBC & Chem 7: 11/25/23 05:15 11/25/23 05:15 Labs: Abnormal Lab Results - Last 24 Hours (Table) 11/24/23 11/25/23 11/25/23 Range/Units 04:43 05:15 05:15 WBC 10.37 H (4.50-10.00) X 10*3/uL RBC 3.24 L (4.40-5.60) X 10*6/uL Hgb 10.6 L (13.0-17.0) g/dL Hct 32.9 L (39.6-50.0) % MCV 101.5 H (80.0-97.0) FL MCH 32.7 H (27.0-32.0) pg Neutrophils # (Manual) 7.88 H (1.80-7.70) X 10*3/uL Lymphocytes # (Manual) 0.73 L (0.90-5.00) X 10*3/uL Eosinophils # (Manual) 0.73 H (0.04-0.35) X 10*3/uL Promyelocytes # (Man) 0.11 H (0) k/uL Chloride 91 L (96-109) mmol/L Carbon Dioxide 34.6 H (21.6-31.8) mmol/L BUN/Creatinine Ratio 27.17 H (12.00-20.00) Ratio Calcium 8.4 L (8.7-10.3) mg/dL Assessment and Plan Plan: Assessment: 1. Hypervolemic hyponatremia. Improved with diuresis. TSH normal. Urine sodium less than 20 and urine osmolality 512. Sodium level 135 today. 2. Volume overload. Improved with diuresis. 3. Pseudomonas UTI s/p antibiotics. 4. C. difficile colitis s/p Dificid. ID following. 5. Acute on chronic diastolic CHF. 6. Morbid obesity. 7. Elevated kappa light chains. Seen by hematology. 8. Metabolic acidosis from IV fluids and GI losses. Resolved. Now alkalotic and s/p Diamox and hypokalemia/hypochloremia. 9. Right-sided hydronephrosis due to UPJ calculus status post cystoscopy with right ureteral stent placement. Urology following. 10. Hypokalemia from diuresis. Replaced. On maintenance supplementation. Plan: Maintain torsemide. Maintain potassium supplementation. Will benefit from SGLT2 inhibitor. Hold off for now due to UTI this admission. Low-salt diet and 1500 cc fluid restriction. Repeat BMP and magnesium level 2 to 3 days postdischarge. Follow-up outpatient in 1 week. Plan for subacute rehab upon discharge.
--- NOTE | 2023-11-25 12:20 | P.DS ---
Providers Date of admission: 10/28/23 06:17 Expected date of discharge: 11/25/23 Attending physician: Truman Austin MD Consults: 10/29/23 08:50 Consult Physician Routine Consulting Provider: Ayden Gomez Consult Reason/Comments: elevated light chains Do you want consulting provider notified?: Yes 10/29/23 11:22 Consult Physician Routine Consulting Provider: Chica Gaxiola Consult Reason/Comments: in patient rehab Do you want consulting provider notified?: Yes 10/29/23 13:20 Consult Physician Routine Consulting Provider: Nick Rodarte Consult Reason/Comments: pseudomonas UTI and C-Diff Do you want consulting provider notified?: Yes 10/30/23 19:31 Consult Physician Routine Consulting Provider: Chance Joy Consult Reason/Comments: Sepsis, Pseudmonas UTI, Obstructive uropathy-stone Do you want consulting provider notified?: Yes 10/31/23 09:17 Consult Physician Stat Consulting Provider: Francie Pickett Consult Reason/Comments: ICU transfer Do you want consulting provider notified?: Yes 11/11/23 08:47 Consult Physician Routine Consulting Provider: Sammy Charles Consult Reason/Comments: hyponatremia Do you want consulting provider notified?: Yes Primary care physician: Heber Martinez Hospital Course: Discharge Diagnosis: Hyponatremia, hypervolemic Acute on chronic diastolic CHF exacerbation Pleural effusions Pericardial effusion Anasarca secondary to above albuminemia Non-anion gap metabolic acidosis secondary to diarrhea, resolved Hypokalemia Sepsis secondary to Pseudomonas UTI, present on admission Hydronephrosis with renal and ureteral calculus obstruction status post ureteral stent Hospital course complicated by fulminant C. difficile infection, present on admission History of BPH Acute kidney injury Severe leukocytosis History of hypertension Hypotension Elevated light chains Low QRS voltage on EKG Morbid obesity, class III with BMI 52.8 kg/m Narcolepsy Hospital Course: Patient is a pleasant 77-year-old male with a past medical history of congestive systolic heart failure with previously known EF of 40 to 45%, hypertension, GERD, obstructive sleep apnea, BPH requiring frequent straight catheterizations and at times Garcia catheter, chronic back pain with bilateral lower extremity neuropathies and restless legs, macular degeneration, and bilateral cataract removal with lens implants. He presented to the emergency department on 10/26/2023 with a chief complaint of generalized weakness. He was febrile on arrival. EKG showed sinus rhythm. Chest x-ray completed showing mild cardiomegaly with overall hazy densities related to overlying soft tissue/body habitus. WBC 14.4 and macrocytosis with MCV of 100.2. BMP showing hyponatremia with sodium of 134 otherwise normal findings. Lactic acid was 1.3. Magnesium 1.8. Liver profile unremarkable. Urinalysis contaminated specimen but appears positive for infection, urine kappa light 6.17 and urine free lambda light 0.68. Free kappa LC quant was 2.06. Influenza A, influenza B, RSV, and COVID were negative. Patient was started on IV antibiotics with Rocephin admitted under our services for acute cystitis and generalized weakness. Echocardiogram was completed showing preserved EF of 55% and mildly increased left ventricular wall thickness. Urine culture positive for Pseudomonas aeruginosa. Blood culture showing no growth to date. C. difficile positive. Started on oral vancomycin in addition to his cefepime for treatment of Pseudomonas UTI. Underwent right ureteral stent insertion by urology. Patient's condition worsened and WBC count significantly increasing concerning for fulminant C. difficile. Patient was started on IV Flagyl in addition to oral vancomycin and a CT abdomen and pelvis was completed. CT abdomen and pelvis revealed severe pancolitis with colonic distention up to 7.5 cm with no pneumatosis or free air noted at this time. Consult was placed to general surgery and infectious disease. Patient was started on vancomycin enemas and fidaxomicin in addition to oral vancomycin and IV Flagyl. He was evaluated by general surgery team who stated that taking patient to the OR could result in significant morbidity and/or mortality and recommending continuation of appropriate antibiotics and resuscitation measures at this time. 10/31/2023 patient was transferred to the ICU. Patient's condition improving and he was transferred back to stepdown unit on 11/02/2023. Garcia catheter still in place. Fecal management system discontinued. Continues to have frequent bowel movements. Nephrology was consulted for worsening hyponatremia and volume overload. Started on Lasix drip. Also status post IV albumin. Vancomycin discontinued, started on fidaxomicin. Repeat CT abdomen pelvis shows small right and small to moderate left pleural effusion, small to moderate volume pericardial fluid, moderate to severe edema of the right body wall suggesting third spacing, moderate amount of stool throughout the colon, right double J ureteral stent. Bowel movements slowing down. Off nephrotoxic medicine. Off of IV Lasix, now on oral torsemide. Patient being discharged to rehab. Patient seen and examined at bedside. Vital signs reviewed and stable. General: Nontoxic, no distress, appears at stated age, morbidly obese, generalized anasarca Derm: Warm, dry Head: Atraumatic, normocephalic, symmetric Eyes: EOMI, no lid lag, anicteric sclera Mouth: No lip lesion, mucus membranes moist Cardiovascular: S1S2 reg, no murmur Lungs: Bibasilar rales, no accessory muscle use, supplemental oxygen Abdominal: Soft, nontender to palpation, no guarding, no appreciable organomegaly Ext: No gross muscle atrophy, no contractures Neuro: CN II-XI grossly intact, no focal neuro deficits Psych: Alert, oriented, appropriate affect A total of 33 minutes of time were spent preparing this complex discharge summary. Patient was discharged on 11/25/2023 at 1128. Patient Condition at Discharge: Stable Plan - Discharge Summary Discharge Rx Participant: Yes New Discharge Prescriptions: New Torsemide [Demadex] 40 mg PO DAILY tab Cholestyramine (with Sugar) [Questran Packet] 4 gm PO BID@1000,2100 #0 packet Acetaminophen Tab [Tylenol] 650 mg PO Q6HR PRN tab PRN Reason: Mild Pain Or Fever > 100.5 Potassium Chloride ER [K-Dur 20] 20 meq PO DAILY tab Continue Doxazosin [Cardura] 8 mg PO HS Multivitamins, Thera [Multivitamin (formulary)] 1 tab PO DAILY Aspirin 325 mg PO DAILY modafiniL [Provigil] 300 mg PO DAILY Losartan [Cozaar] 25 mg PO DAILY Cholecalciferol [Vitamin D3 (25 Mcg = 1000 Iu)] 50 mcg PO DAILY Discontinued Turmeric Root Extract [Turmeric] 500 mg PO DAILY Cephalexin [Keflex] 500 mg PO Q8HR #21 cap Spironolactone [Aldactone] 25 mg PO DAILY Hydrocortisone Cream [Hydrocortisone 2.5% Cream] 1 applic TOPICAL BID PRN PRN Reason: Rash Ginkgo Biloba [place] Extract [Ginkgo Biloba] 125 mg PO DAILY Coffee Xt/Phosphatidyl Serine [Neuriva Original 100-100Mg Cap] 1 cap PO DAILY Ketoconazole 2% Cream [Nizoral 2%] 1 applic TOPICAL BID PRN PRN Reason: Rash Discharge Medication List Aspirin 325 mg PO DAILY 10/28/13 [History] Doxazosin [Cardura] 8 mg PO HS 10/28/13 [History] Multivitamins, Thera [Multivitamin (formulary)] 1 tab PO DAILY 10/28/13 [History] modafiniL [Provigil] 300 mg PO DAILY 10/11/14 [History] Cholecalciferol [Vitamin D3 (25 Mcg = 1000 Iu)] 50 mcg PO DAILY 05/29/21 [History] Losartan [Cozaar] 25 mg PO DAILY 10/26/23 [History] Acetaminophen Tab [Tylenol] 650 mg PO Q6HR PRN tab 11/25/23 [Rx] Cholestyramine (with Sugar) [Questran Packet] 4 gm PO BID@1000,2100 #0 packet 11/25/23 [Rx] Potassium Chloride ER [K-Dur 20] 20 meq PO DAILY tab 11/25/23 [Rx] Torsemide [Demadex] 40 mg PO DAILY tab 11/25/23 [Rx] Follow up Appointment(s)/Referral(s): Ayden Gomez [STAFF PHYSICIAN] - 01/29/24 11:00 am (This appt is the Housekeeping Supervisor. This appt is at the office located [address] [place] [address], [facility], 2nd floor ) Chance Joy MD [STAFF PHYSICIAN] - 6 Weeks Heber Martinez DO [Primary Care Provider] - 1-2 days Sammy Charles DO [STAFF PHYSICIAN] - 1 Week Patient Instructions/Handouts: Heart Failure (DC), Urinary Tract Infection in Men (DC), C. Diff (Clostridioides Difficile) Infection (DC) Activity/Diet/Wound Care/Special Instructions: Have BMP and Magnesium checked for the next 3 days at [facility]. Maintain low salt diet and 1500ml FR. Patient is to be transferred to [facility] with a Garcia catheter. Catheter may be removed when intermittent catheterization can be resumed. Discharge Disposition: TRANSFER TO SNF/ECF
--- NOTE | 2023-11-26 14:43 | P.PN ---
Subjective Progress Note Date: 11/25/23 Principal diagnosis: Reason for follow-up is C. difficile colitis UTI and leukocytosis Patient is a 77-year-old male with a past medical history significant for hypertension osteoarthritis sleep apnea reflux patient did have a BPH and self catheterize himself because of urine retention, presented to hospital after a fall with weakness he did have a positive UA and has been treated for a UTI also has significant diarrhea stool for C. difficile came back positive pro mpting this consultation. On today's evaluation that is 11/25/2023, the patient continues to be afebrile, the patient is on 2 L nasal cannula oxygen and breathing comfortably, the Pt denies having any chest pain or cough, the patient denies having any abdominal pain no vomiting or any diarrhea has been reported by the nursing staff. Patient white count is 10.37, creatinine 0.6 Objective - Vital Signs Vital signs: Vital Signs Temp 98.4 F 11/25/23 06:30 Pulse 75 11/25/23 06:30 Resp 16 11/25/23 06:30 BP 100/62 11/25/23 06:30 Pulse Ox 96 11/25/23 08:17 FiO2 Intake & Output 11/24/23 11/25/23 11/25/23 18:59 06:59 18:59 Intake Total 100 500 100 Output Total 725 700 Balance -625 -200 100 Intake: Oral 100 500 100 Output: Urine 725 700 Other: Voiding Method Indwelling Catheter Indwelling Catheter Indwelling Catheter # Bowel Movements 2 ABP, PAP, CO, CI - Last Documented Arterial Blood Pressure 73/52 - Exam GENERAL DESCRIPTION: An elderly male lying in bed in no distress RESPIRATORY SYSTEM: Unlabored breathing , decreased breath sounds at bases HEART: S1 S2 regular rate and rhythm , ABDOMEN: Soft , mild distention and tenderness Extremities: 2+ edema feet - Labs CBC & Chem 7: 11/25/23 05:15 11/25/23 05:15 Labs: Abnormal Lab Results - Last 24 Hours (Table) 11/24/23 11/25/23 11/25/23 Range/Units 04:43 05:15 05:15 WBC 10.37 H (4.50-10.00) X 10*3/uL RBC 3.24 L (4.40-5.60) X 10*6/uL Hgb 10.6 L (13.0-17.0) g/dL Hct 32.9 L (39.6-50.0) % MCV 101.5 H (80.0-97.0) FL MCH 32.7 H (27.0-32.0) pg Neutrophils # (Manual) 7.88 H (1.80-7.70) X 10*3/uL Lymphocytes # (Manual) 0.73 L (0.90-5.00) X 10*3/uL Eosinophils # (Manual) 0.73 H (0.04-0.35) X 10*3/uL Promyelocytes # (Man) 0.11 H (0) k/uL Chloride 91 L (96-109) mmol/L Carbon Dioxide 34.6 H (21.6-31.8) mmol/L BUN/Creatinine Ratio 27.17 H (12.00-20.00) Ratio Calcium 8.4 L (8.7-10.3) mg/dL Assessment and Plan (1) C. difficile colitis Status: Acute Priority: Medium Code(s): A04.72 - ENTEROCOLITIS D/T CLOSTRIDIUM DIFFICILE, NOT SPCF RECUR SNOMED Code(s): 958025984 (2) Leukocytosis Status: Acute Priority: Medium Code(s): D72.829 - ELEVATED WHITE BLOOD CELL COUNT, UNSPECIFIED SNOMED Code(s): 767811064 (3) Urinary tract infection Status: Acute Priority: Medium Code(s): N39.0 - URINARY TRACT INFECTION, SITE NOT SPECIFIED SNOMED Code(s): 13299267 Plan: 1patient with a complicated history and this patient initially presented to the hospital with sepsis as the patient did have a fever elevated white count source likely UTI with urine culture finalized with Pseudomonas aeruginosa, patient did have a CT abdominal pelvis CT shows evidence of hydronephrosis and ureteral stone in this patient who is status post cystoscopy and ureteral stent placement patient is currently covered with the cefepime concerning for pyelonephritis/complicated UTI, for which the patient has received adequate cefepime 2patient with C. difficile colitis, for which the patient has received adequate oral/rectal vancomycin followed by a course of Dificid and no need for any antibiotics on discharge has been encouraged to increase his probiotic and yogurt intake Dictation was produced using [employer] software. please excuse any grammatical, word or spelling errors. Time with Patient: Less than 30
--- NOTE | 2023-11-26 14:43 | P.PN ---
Subjective Progress Note Date: 11/22/23 Principal diagnosis: Reason for follow-up is C. difficile colitis UTI and leukocytosis Patient is a 77-year-old male with a past medical history significant for hypertension osteoarthritis sleep apnea reflux patient did have a BPH and self catheterize himself because of urine retention, presented to hospital after a fall with weakness he did have a positive UA and has been treated for a UTI also has significant diarrhea stool for C. difficile came back positive pro mpting this consultation. On today's evaluation that is 11/22/2023, patient has been afebrile, patient is breathing comfortably and is currently on 2 L nasal cannula oxygen patient denies having any significant cough no chest pain shortness of breath, patient denies nausea vomiting or abdominal pain and diarrhea has improved Patient white count is 10.8 creatinine 0.6 Objective - Vital Signs Vital signs: Vital Signs Temp 97.9 F 11/22/23 14:00 Pulse 78 11/22/23 14:00 Resp 16 11/22/23 14:00 BP 100/65 11/22/23 14:00 Pulse Ox 95 11/22/23 14:00 FiO2 Intake & Output 11/21/23 11/22/23 11/22/23 18:59 06:59 18:59 Intake Total 660 Output Total 2950 1400 Balance -2290 -1400 Intake: Oral 660 Output: Urine 2950 1400 Other: Voiding Method Indwelling Catheter Indwelling Catheter Indwelling Catheter # Bowel Movements 1 ABP, PAP, CO, CI - Last Documented Arterial Blood Pressure 73/52 - Exam GENERAL DESCRIPTION: An elderly male lying in bed in no distress RESPIRATORY SYSTEM: Unlabored breathing , decreased breath sounds at bases HEART: S1 S2 regular rate and rhythm , ABDOMEN: Soft , mild distention and tenderness Extremities: 2+ edema feet - Labs CBC & Chem 7: 11/25/23 05:15 11/25/23 05:15 Labs: Abnormal Lab Results - Last 24 Hours (Table) 11/21/23 11/22/23 11/22/23 Range/Units 19:10 04:15 04:15 WBC 10.80 H (4.50-10.00) X 10*3/uL RBC 3.63 L (4.40-5.60) X 10*6/uL Hgb 11.7 L (13.0-17.0) g/dL Hct 36.5 L (39.6-50.0) % MCV 100.6 H (80.0-97.0) FL MCH 32.2 H (27.0-32.0) pg MPV 9.2 L (9.5-12.2) FL Neutrophils # (Manual) 8.10 H (1.80-7.70) X 10*3/uL Lymphocytes # (Manual) 0.76 L (0.90-5.00) X 10*3/uL Eosinophils # (Manual) 0.43 H (0.04-0.35) X 10*3/uL Sodium 129 L (137-145) mmol/L Potassium 2.9 L (3.5-5.5) mmol/L Chloride 87 L (96-109) mmol/L Carbon Dioxide 38.8 H (21.6-31.8) mmol/L BUN/Creatinine Ratio 25.33 H (12.00-20.00) Ratio Glucose 133 H (70-110) mg/dL Calcium 8.5 L (8.7-10.3) mg/dL Assessment and Plan (1) C. difficile colitis Current Visit: Yes Status: Acute Priority: Medium Code(s): A04.72 - ENTEROCOLITIS D/T CLOSTRIDIUM DIFFICILE, NOT SPCF RECUR SNOMED Code(s): 949230406 (2) Leukocytosis Current Visit: Yes Status: Acute Priority: Medium Code(s): D72.829 - ELEVATED WHITE BLOOD CELL COUNT, UNSPECIFIED SNOMED Code(s): 977193907 (3) Urinary tract infection Current Visit: Yes Status: Acute Priority: Medium Code(s): N39.0 - URINARY TRACT INFECTION, SITE NOT SPECIFIED SNOMED Code(s): 72322545 Plan: 1patient with a complicated history and this patient initially presented to the hospital with sepsis as the patient did have a fever elevated white count source likely UTI with urine culture finalized with Pseudomonas aeruginosa, patient did have a CT abdominal pelvis CT shows evidence of hydronephrosis and ureteral stone in this patient who is status post cystoscopy and ureteral stent placement patient is currently covered with the cefepime concerning for pyelonephritis/complicated UTI, for which the patient has received adequate cefepime 2patient with C. difficile colitis, did have improvement in the stool output, patient has completed his course of Dificid, may continue Questran if patient has liquidy stool Dictation was produced using [employer] dictation software. please excuse any grammatical, word or spelling errors.
--- NOTE | 2023-11-26 14:43 | P.PN ---
Subjective Progress Note Date: 11/23/23 Principal diagnosis: Reason for follow-up is C. difficile colitis UTI and leukocytosis Patient is a 77-year-old male with a past medical history significant for hypertension osteoarthritis sleep apnea reflux patient did have a BPH and self catheterize himself because of urine retention, presented to hospital after a fall with weakness he did have a positive UA and has been treated for a UTI also has significant diarrhea stool for C. difficile came back positive pro mpting this consultation. On today's evaluation that is 11/23/2023,the patient denies any fever or any chills, patient is breathing comfortably on room air, the patient denies chest pain shortness of breath and no significant cough, patient denies abdominal pain, no nausea vomiting or diarrhea. Patient white count is 10.71 creatinine 0.88 Objective - Vital Signs Vital signs: Vital Signs Temp 98.0 F 11/23/23 13:25 Pulse 74 11/23/23 13:25 Resp 15 11/23/23 13:25 BP 93/60 11/23/23 13:25 Pulse Ox 95 11/23/23 13:25 FiO2 Intake & Output 11/22/23 11/23/23 11/23/23 18:59 06:59 18:59 Intake Total 720 Output Total 3500 2350 Balance -3500 -1630 Intake: Oral 720 Output: Urine 3500 2350 Other: Voiding Method Indwelling Catheter Indwelling Catheter Indwelling Catheter # Bowel Movements 1 1 ABP, PAP, CO, CI - Last Documented Arterial Blood Pressure 73/52 - Exam GENERAL DESCRIPTION: An elderly male lying in bed in no distress RESPIRATORY SYSTEM: Unlabored breathing , decreased breath sounds at bases HEART: S1 S2 regular rate and rhythm , ABDOMEN: Soft , mild distention and tenderness Extremities: 2+ edema feet - Labs CBC & Chem 7: 11/25/23 05:15 11/25/23 05:15 Labs: Abnormal Lab Results - Last 24 Hours (Table) 11/22/23 11/22/23 11/23/23 Range/Units 04:15 17:37 10:20 WBC 10.7 H (3.8-10.6) k/uL RBC 3.54 L (4.30-5.90) m/uL Hgb 11.3 L (13.0-17.5) gm/dL Hct 36.6 L (39.0-53.0) % MCV 103.2 H (80.0-100.0) fL MCHC 30.9 L (31.0-37.0) g/dL Promyelocytes # (Man) 0.32 H (0) k/uL Sodium (137-145) mmol/L Potassium 3.4 L (3.5-5.1) mmol/L Chloride (98-107) mmol/L Carbon Dioxide (22-30) mmol/L Glucose (74-99) mg/dL Calcium (8.4-10.2) mg/dL 11/23/23 Range/Units 10:20 WBC (3.8-10.6) k/uL RBC (4.30-5.90) m/uL Hgb (13.0-17.5) gm/dL Hct (39.0-53.0) % MCV (80.0-100.0) fL MCHC (31.0-37.0) g/dL Promyelocytes # (Man) (0) k/uL Sodium 130 L (137-145) mmol/L Potassium 3.3 L (3.5-5.1) mmol/L Chloride 87 L (98-107) mmol/L Carbon Dioxide 37 H (22-30) mmol/L Glucose 151 H (74-99) mg/dL Calcium 8.3 L (8.4-10.2) mg/dL Assessment and Plan (1) C. difficile colitis Current Visit: Yes Status: Acute Priority: Medium Code(s): A04.72 - ENTEROCOLITIS D/T CLOSTRIDIUM DIFFICILE, NOT SPCF RECUR SNOMED Code(s): 748037517 (2) Leukocytosis Current Visit: Yes Status: Acute Priority: Medium Code(s): D72.829 - ELEVATED WHITE BLOOD CELL COUNT, UNSPECIFIED SNOMED Code(s): 636891600 (3) Urinary tract infection Current Visit: Yes Status: Acute Priority: Medium Code(s): N39.0 - URINARY TRACT INFECTION, SITE NOT SPECIFIED SNOMED Code(s): 23065601 Plan: 1patient with a complicated history and this patient initially presented to the hospital with sepsis as the patient did have a fever elevated white count source likely UTI with urine culture finalized with Pseudomonas aeruginosa, patient did have a CT abdominal pelvis CT shows evidence of hydronephrosis and ureteral stone in this patient who is status post cystoscopy and ureteral stent placement patient is currently covered with the cefepime concerning for pyelonephritis/complicated UTI, for which the patient has received adequate cefepime 2patient with C. difficile colitis, did have improvement in the stool output, and white count has normalized patient is completing his course of oral Dificid Dictation was produced using [employer] software. please excuse any grammatical, word or spelling errors.
--- NOTE | 2023-11-26 15:57 | CDI ---
Documentation Clarification Form Date: 11/26/2023 03:33:56 PM From: Rody Cruz Phone: Admit Date: 10/28/2023 06:17:00 AM Patient Name: Daniel Keene Visit Number: [id number] Discharge Date: 11/25/2023 03:50:00 PM ATTENTION: The Clinical Documentation Specialists (CDI) and [facility] Coding Staff appreciate your assistance in clarifying documentation. Please respond to the clarification below the line at the bottom and electronically sign. The CDI & [facility] Coding staff will review the response and follow-up if needed. Please note: Queries are made part of the Legal Health Record. If you have any questions, please contact the author of this message via ITS. Dr. Truman Austin Your patient has the documented diagnosis of: Acute on chronic diastolic CHF per 11/10 Consult Note and several Progress Notes Systolic heart failurewith an EF of 40 to 45% per H&P and several Progress Notes Clarification regarding the type of CHF is requested. History/Risk Factors: 77yo M, hypervolemichyponatremia, Pseudomonas UTId/t FC, C. dif, CHF, morbid obesity, elevatedkappa light chains, metabolic acidosis,alkalosis, hypokalemia, hypochloremia, Rt hydronephrosis,UPJcalculus, hypokalemiad/t diuresis Clinical Indicators: VS/Pulse OX: 95-96 Echocardiogram Results: LV mildly increased LV wall thickness. LVcavitysize normal. No obviousregional wall motionabnormalities. LVEF is estimated at 55 %.Grade 1 diastolicdysfunction. Mild RVdilatation. RV systolicpressurewithin normal limits. Right atrialdilatation. Normal left atrial size. Structurally normal mitral valve. Mildmitral annular calcification. Trace MR. Aortic Valve Nostenosisorregurgitation. Structurally normal tricuspid valve. MildTR, Structurally normal pulmonic valve. TracePR. Nopericardial effusion. Normal size aortic root and proximal ascending aorta. Chest x ray: Theheart is enlarged. Hazydensitiesrelated to overlying soft tissue. The lung bases are underpenetrated and not well assessed. Noeffusionon the lateral view. Treatment: Volume overload. Improved with diuresis. In your professional opinion, can you please clarify the type of CHF if known? [ ] Acute on Chronic Systolic Heart Failure (reduced EF) [ ] Acute on Chronic Diastolic Heart Failure (preserved EF) [ x ] Acute on Chronic Heart Failure Systolic & Diastolic Heart Failure [ ] Other, please specify [ ] Unable to determine (Template Last Revised: July 2020) MTDD
== END 2023-11-25 15:50 | DRG 659 ==
LOC: EC 12:29 → 6NMEDSUR 14:39 → 1SOBS 10-27 10:08 → OBSVTOIN 10-28 06:17 → 4SSUR 10-28 14:58 → 3SCARD 10-30 22:57 → 2SICU 10-31 10:45 → 3SCARD 11-02 21:28 → 4SSUR 11-04 16:20
PROVIDERS: ADMIT Student in an Organized Health Care Education/Training Program; ATTEND Student in an Organized Health Care Education/Training Program
PROC: 0T768DZ Dilation of Right Ureter with Intraluminal Device, Via Natural or Artificial Opening Endoscopic (ICD-10-PCS; principal; 2023-10-30 21:30)
PROC: 03HY32Z Insertion of Monitoring Device into Upper Artery, Percutaneous Approach (ICD-10-PCS; 2023-10-31)
PROC: 4A133B1 Monitoring of Arterial Pressure, Peripheral, Percutaneous Approach (ICD-10-PCS; 2023-10-31)
PROC: 4A133J1 Monitoring of Arterial Pulse, Peripheral, Percutaneous Approach (ICD-10-PCS; 2023-10-31)
PROC: 30233J1 Transfusion of Nonautologous Serum Albumin into Peripheral Vein, Percutaneous Approach (ICD-10-PCS; 2023-11-11)
DX: T83.511A Infection and inflammatory reaction due to indwelling urethral catheter, initial encounter (principal); A41.52 Sepsis due to Pseudomonas; I50.23 Acute on chronic systolic (congestive) heart failure; E43 Unspecified severe protein-calorie malnutrition; Z68.43 Body mass index [BMI] 50.0-59.9, adult; N17.9 Acute kidney failure, unspecified; I31.39 Other pericardial effusion (noninflammatory); A04.72 Enterocolitis due to Clostridium difficile, not specified as recurrent; E87.3 Alkalosis; E87.20 Acidosis, unspecified; L03.314 Cellulitis of groin; E87.1 Hypo-osmolality and hyponatremia; N13.6 Pyonephrosis; N20.2 Calculus of kidney with calculus of ureter; I11.0 Hypertensive heart disease with heart failure; E66.01 Morbid (severe) obesity due to excess calories; D89.2 Hypergammaglobulinemia, unspecified; E88.09 Other disorders of plasma-protein metabolism, not elsewhere classified; E87.8 Other disorders of electrolyte and fluid balance, not elsewhere classified; I95.9 Hypotension, unspecified; T50.2X5A Adverse effect of carbonic-anhydrase inhibitors, benzothiadiazides and other diuretics, initial encounter; G25.81 Restless legs syndrome; G47.419 Narcolepsy without cataplexy; E86.0 Dehydration; G47.33 Obstructive sleep apnea (adult) (pediatric); G89.29 Other chronic pain; B37.2 Candidiasis of skin and nail; R26.2 Difficulty in walking, not elsewhere classified; R33.8 Other retention of urine; E86.1 Hypovolemia; I87.8 Other specified disorders of veins; N40.1 Benign prostatic hyperplasia with lower urinary tract symptoms; E87.6 Hypokalemia; D75.89 Other specified diseases of blood and blood-forming organs; R53.1 Weakness; W19.XXXA Unspecified fall, initial encounter; Y73.1 Therapeutic (nonsurgical) and rehabilitative gastroenterology and urology devices associated with adverse incidents; Z74.09 Other reduced mobility; Z96.652 Presence of left artificial knee joint; Z87.440 Personal history of urinary (tract) infections; Z87.442 Personal history of urinary calculi; Z79.82 Long term (current) use of aspirin; Z79.899 Other long term (current) drug therapy; Z86.14 Personal history of Methicillin resistant Staphylococcus aureus infection; Z87.891 Personal history of nicotine dependence; Z11.52 Encounter for screening for COVID-19; Z86.19 Personal history of other infectious and parasitic diseases; Z75.1 Person awaiting admission to adequate facility elsewhere
CPT/HCPCS: 36410; 36415; 71046; 74018; 74176; 74178; 76937; 80048; 80053; 80202; 81001; 82248; 82272; 82550; 83605; 83735; 83883; 83930; 83935; 84132; 84165; 84166; 84295; 84300; 84443; 85025; 85027; 86334; 87040; 87077; 87086; 87186; 87324; 87636; 93005; 93306; 94760; 96361; 96374; 96376; 99285

== ENCOUNTER 2023-12-31 10:08 | Day surgery (SDC) | payer MEDICARE ==
[2023-12-29 13:18] VITALS: BMI 48.4
--- NOTE | 2023-12-30 08:45 | P.GSHP ---
History of Present Illness H&P Date: 12/30/23 Chief Complaint: Right hydronephrosis The patient is a 77-year-old white male with a urologic history significant for chronic urinary retention, managed with intermittent catheterization. He has been treated for recurrent kidney stones, as well as recurrent UTIs. He was adm itted in early October following a fall, which he attributed to generalized weakness. He also reported recent diarrhea. He was diagnosed with C. difficile colitis, as well as a Pseudomonas UTI. A CT scan showed evidence of right hydronephrosis due to a 1 cm right UPJ calculus, and he underwent cystoscopy with right ureteral stent insertion. He was noted at that time to have a bladder calculus. He was treated for toxic megacolon and had a prolonged recovery. - Genitourinary (Male) Genitourinary: Reports as per HPI Past Medical History Past Medical History: Heart Failure, Eye Disorder, GERD/Reflux, Hypertension, Osteoarthritis (OA), Prostate Disorder, Renal Disease, Skin Disorder, Sleep Apnea/CPAP/BIPAP Additional Past Medical History / Comment(s): PRE-CA SKIN LESIONS; BACK PAIN; HX RT RENAL CALCULUS, cellulitis of the lower legs with chronic venous stasis,benign prostatic hypertrophy, obstructive sleep apnea no CPAP, chronic back pain secondary to degenerative disc disease,macular degeneration, Hx of self cath for 2-3 years prior to now having Garcia catheter. Restless leg. Per [facility] nurse Maria Esther- no rash or wounds, Triad cream to coccyx for non blanchable redness. Per [facility] hx wen wraps to biilat legs daily. Narcolepsy. History of Any Multi-Drug Resistant Organisms: C-DIFF, MRSA Date of last positivie culture/infection: 2014, C-diff 2023. MDRO Source:: finger, current C-diff tx. Past Surgical History: Joint Replacement, Orthopedic Surgery, Prostate Surgery Additional Past Surgical History / Comment(s): 06/30/18 CYSTOSCOPY REMOVAL OF BLADDER CALCULI AND W/ LT URETERAL STENT INSERTION,LT TOTAL KNEE; RT KNEE MAKOPLASTY; ABD LIPOMA REMOVED; RT RENAL CALCULUS LITHOTRIPSY, RT URETERAL STENT, TURP; bilateral cataract removal with lens implants,circumcision Past Anesthesia/Blood Transfusion Reactions: No Reported Reaction Smoking Status: Former smoker - Past Family History Father Family Medical History: Cancer Additional Family Medical History / Comment(s): Grandfather had heart attack, father at 67. Colon cancer- father. Medications and Allergies Home Medications Medication Instructions Recorded Confirmed Type Aspirin 325 mg PO QAM 10/28/13 12/29/23 History Multivitamins, Thera [Multivitamin 1 tab PO QAM 10/28/13 12/29/23 History (formulary)] Cholecalciferol [Vitamin D3 (25 50 mcg PO QAM 05/29/21 12/29/23 History Mcg = 1000 Iu)] Acetaminophen Tab [Tylenol] 650 mg PO Q6HR PRN tab 11/25/23 12/29/23 Rx Cholestyramine (with Sugar) 4 gm PO BID@1000,2100 #0 packet 11/25/23 12/29/23 Rx [Questran Packet] Baclofen 5 mg PO HS 12/29/23 12/29/23 History Doxazosin Mesylate 8 mg PO HS 12/29/23 12/29/23 History Fleet Enema (Unknown Dose) 1 unit RECTAL Q24H PRN 12/29/23 12/29/23 History Hydrophilic Cream [Triad (Kerodex 1 applic TOPICAL Q8H 12/29/23 12/29/23 History geq)] Lactobacillus(Unknown Dose) 1 cap PO BID 12/29/23 12/29/23 History Lidocaine 5% Patch [Lidoderm] 1 patch TOPICAL DAILY 12/29/23 12/29/23 History Lidocan Patch(Unknown Dose) 1 dose TOPICAL HS PRN 12/29/23 12/29/23 History Losartan Potassium 25 mg PO QAM 12/29/23 12/29/23 History Magnesium Hydroxide [Milk of 30 ml PO QAM PRN 12/29/23 12/29/23 History Magnesia Concentrate] Multivatmin (Unknown Dose) 1 tab PO QAM 12/29/23 12/29/23 History Potassium Chloride ER [K-Dur 20] 20 meq PO QAM 12/29/23 12/29/23 History Torsemide [Demadex] 40 mg PO QAM 12/29/23 12/29/23 History Vancomycin HCl [Vancomycin HCl 5 ml PO BID 12/29/23 12/29/23 History Oral Soln] bisacodyL 10 mg RECTAL Q24H PRN 12/29/23 12/29/23 History modafiniL [Provigil] 300 mg PO QAM 12/29/23 12/29/23 History Allergies Allergy/AdvReac Type Severity Reaction Status Date / Time No Known Allergies Allergy Verified 12/29/23 11:43 Surgical - Exam - General well developed, well nourished, no distress - Respiratory normal respiratory effort - Abdomen Abdomen: soft, non tender, no guarding, no rigid, no rebound - Genitourinary normal penis with no external lesions, testicles non-tender - Psychiatric oriented to time, oriented to person, oriented to place, speech is normal, memory intact Assessment and Plan (1) Calculus in bladder Status: Acute Code(s): N21.0 - CALCULUS IN BLADDER SNOMED Code(s): 62258456 (2) Calculus of ureter Status: Acute Code(s): N20.1 - CALCULUS OF URETER SNOMED Code(s): 54207687 Plan: Cystoscopy, cystoscopy lithotripsy, right ureteral stent removal, right ureteroscopy with Holmium laser lithotripsy and stone basketing. The patient is aware of potential risks, which include anesthesia, bleeding, infection, ureteral injury, and inability to remove the calculi in their entirety.
[~2023-12-31 10:08] MED LIST changes: -ALPRAZolam 0.25 MG TAB PO PRN; -ALPRAZolam 0.5 MG TAB PO PRN; -ASPIRIN 325 MG TAB PO STA; +GENTAMICIN 160 MG in SODIUM CHLORIDE 0.9% 100 ML IVPB PRN; -HEPARIN SODIUM,PORCINE 10,000 UNIT in SODIUM CHLORIDE 0.9% 1,000 ML IRRIGATION PRN; -HEPARIN SODIUM,PORCINE 2,500 UNIT in SODIUM CHLORIDE 0.9% 250 ML IRRIGATION PRN; +HYDROmorphone 0.5 MG/0.5 ML SYRINGE IVP PRN; +LIDOCAINE 1% (10MG/ML) FOR IV START INTRADERMA PRN; +MIDAZOLAM 2 MG/2 ML VIAL IV PRN; -NITROGLYCERIN SL TABS 0.4 MG TAB SUBLINGUAL PRN; -SODIUM CHLORIDE 0.9% 1,000 ML in EMPTY BAG 1 BAG IV SCH
[2023-12-31] MEDS: DEXAMETHASONE SOD PHOSPHATE 4 MG/ML 1 ML VIAL IV ONE (12:17)
[2023-12-31] MEDS: ONDANSETRON 4 MG/2 ML VIAL IVP ONE (12:17)
[2023-12-31] MEDS: LACTATED RINGERS 1,000 ML IV SCH (12:17)
[2023-12-31] MEDS: IV FLUID CONTINUATION 1,000 ML IV ONE (12:30)
--- NOTE | 2023-12-31 12:34 | XR ---
EXAMINATION TYPE: XR KUB DATE OF EXAM: 12/31/2023 COMPARISON: 10/31/2023 INDICATION: Cystolithotripsy TECHNIQUE: Single view abdomen frontal projection FINDINGS: There is a normal bowel gas pattern. The base of the colon. Psoas margins are normal. No organomegaly is present. There is a 1.6 cm long calcification adjacent to the proximal right ureteral stent. Phleboliths are p resent within the pelvis. IMPRESSION: 1. Right proximal ureteral calcification
[2023-12-31] MEDS ORDERED: fentaNYL (PF) 50 MCG/ML 2 ML AMP ONE (14:37)
[2023-12-31] MEDS ORDERED: NEOSTIGMINE 1 MG/ML 10 ML VIAL ONE (14:37)
[2023-12-31] MEDS ORDERED: ROCURONIUM 10 MG/ML (5 ML VIAL) IV ONE (14:37)
[2023-12-31] MEDS ORDERED: PROPOFOL 10 MG/ML 20 ML VIAL IV ONE (14:37)
[2023-12-31] MEDS ORDERED: GLYCOPYRROLATE 0.2 MG/ML 2 ML VIAL ONE (14:37)
[2023-12-31] MEDS ORDERED: ePHEDrine 50 MG/ML 1 ML VIAL ONE (14:37)
[2023-12-31] MEDS ORDERED: LIDOCAINE 1% INJ 10MG/ML (20 ML MDV) ONE (14:37)
[2023-12-31] MEDS: AMPICILLIN 2,000 MG in SODIUM CHLORIDE 0.9% 100 ML IVPB PRN (14:42)
[2023-12-31] MEDS: LACTATED RINGERS 1,000 ML IV ONE (16:31)
--- NOTE | 2023-12-31 16:47 | P.OP ---
Date of Procedure: 12/31/23 Preoperative Diagnosis: Bladder calculus, right renal calculus Postoperative Diagnosis: Same Procedure(s) Performed: Cystoscopy, cystoscopy lithotripsy, right ureteral stent removal, right ureteroscopy with Holmium laser lithotripsy and stone basketing Anesthesia: BERNARD Surgeon: Chance Joy Estimated Blood Loss (ml): 10 IV fluids (ml): 300 Pathology: other (Bladder calculus and right renal pelvic calculus, sent for chemical analysis) Condition: stable Disposition: PACU Indications for Procedure: The patient is a 77-year-old white male with a urologic history significant for chronic urinary retention, managed with intermittent catheterization. He has been treated for recurrent kidney stones, as well as recurrent UTIs. He was admitted in early October following a fall, which he attributed to generalized weakness. He also reported recent diarrhea. He was diagnosed with C. difficile colitis, as well as a Pseudomonas UTI. A CT scan showed evidence of right hydronephrosis due to a 1 cm right UPJ calculus, and he underwent cystoscopy with right ureteral stent insertion. He was noted at that time to have a bladder calculus. He was treated for toxic megacolon and had a prolonged recovery. He now comes for removal of his bladder and UPJ calculi. Operative Findings: 7 mm bladder calculus. 1 cm right renal pelvic calculus. Both removed completely. Description of Procedure: The patient was taken to the operating room and placed in the dorsolithotomy position, with legs supported in Lucas stirrups. The external genitalia was prepped and draped sterilely. The 30 lens was used to introduce the 21-Bermudian Lynn cystoscopic sheath through the urethra and into the bladder under direct vision. The prostatic urethra showed evidence of prior resection. A cavity is noted which appears to be subtrigonal. A 7 mm calculus is noted within this cavity. The bladder is otherwise unremarkable. The distal end of the right ureteral stent is visualized. The 272 m holmium laser probe was passed through the cystoscope, and the bladder calculus was fragmented. Calculus fragments were all removed. Grasping forceps were then used to grasp the distal end of the right ureteral stent, which was removed along with the cystoscope. A 0.038 inch Glidewire was passed through the stent and advanced up to the renal pelvis. The stent was removed, and an 11/13-Bermudian ureteral access catheter was passed over the wire, up to the proximal ureter. The EventKloudra flexible ureteroscope was then passed through the ureteral access catheter sheath and advanced under direct vision, up to the right renal pelvis. The renal pelvic calculus was readily visualized. The 272 micron Holmium laser probe was passed through the ureteroscope, and lithotripsy was performed. This was initially done in a dusting mode, but the calculus ultimately fragmented and a 1.9 Bermudian 0 tip nitinol basket was used to remove all of the calculus fragments. Final inspection of the renal pelvis showed no residual calculus fragments. Pullout ureteroscopy showed no evidence of ureteral trauma. After removing the ureteroscope, a 16 Bermudian coud tip Garcia catheter was inserted. The return was faintly pink-tinged. The patient tolerated the procedure well and was taken to the recovery room in stable condition. RANJEET ROCKS Report: Procedure Acuity: Elective Stone Size and Location: 7 mm, bladder. 1 cm, right renal pelvis. Ureteral Dilation: No Ureteral Access Sheath Used: Yes Stone Sent for Analysis: Yes All Stones/Fragments Were Removed with a Basket: Yes Complications: No Preoperative Antibiotics Given: Yes Stent Placed: No Discharge Medications: None
[2023-12-31 16:52] VITALS: TEMP 98.4
[2023-12-31 18:04] VITALS: RESP 18
[2023-12-31 18:19] VITALS: BP 117/68; PULSE 88
--- NOTE | 2023-12-31 18:53 | FL ---
EXAMINATION TYPE: FL guidance operating room Intraoperative/procedural fluoroscopic services were pro vided. Total fluoroscopy time is 18.2 seconds with a total of 1 submitted images to PACS. Please see the operative/procedural note for further details. DAP: 3.4329 Gycm2
== END 2023-12-31 19:04 ==
LOC: OR 10:08
PROVIDERS: ATTEND Urology
DX: N13.2 Hydronephrosis with renal and ureteral calculous obstruction (principal); N21.0 Calculus in bladder; G25.81 Restless legs syndrome; G47.33 Obstructive sleep apnea (adult) (pediatric); G47.419 Narcolepsy without cataplexy; I11.0 Hypertensive heart disease with heart failure; I50.9 Heart failure, unspecified; K21.9 Gastro-esophageal reflux disease without esophagitis; M19.90 Unspecified osteoarthritis, unspecified site; N40.0 Benign prostatic hyperplasia without lower urinary tract symptoms; Z80.0 Family history of malignant neoplasm of digestive organs; Z87.440 Personal history of urinary (tract) infections; Z87.891 Personal history of nicotine dependence; Z79.899 Other long term (current) drug therapy; Z90.79 Acquired absence of other genital organ(s)
CPT/HCPCS: 52353; 82365; 74018; C1769; J1100; J2710; J2405; J2001; J3010; J0290; J2704; J1596

== ENCOUNTER 2024-07-11 07:36 | Inpatient (IN) | payer MEDICARE ==
--- NOTE | 2024-07-11 08:01 | ED ---
General Adult HPI - General Chief complaint: Fall Stated complaint: Weakness Time Seen by Provider: 07/11/24 07:50 Source: patient, EMS, RN notes reviewed, old records reviewed Mode of arrival: EMS Limitations: no limitations - History of Present Illness Initial comments: This is a 78-year-old male who presents to the emergency department with a past medical history significant for self-catheterization. Patient states he had a fever last night in the last week has been getting slowly weaker. Patient states this morning got up and he was unable to walk so he came to the emergency department. Patient denies any cough congestion or sore throat. Patient denies any difficulty breathing or chest pain. Patient has any palpitations. Patient denies any abdominal pain patient denies any nausea vomiting diarrhea. Patient states he never has any dysuria because he caths himself. - Related Data Home Medications Medication Instructions Recorded Confirmed Aspirin 325 mg PO QAM 10/28/13 12/31/23 Multivitamins, Thera [Multivitamin 1 tab PO QAM 10/28/13 12/31/23 (formulary)] Cholecalciferol [Vitamin D3 (25 50 mcg PO QAM 05/29/21 12/31/23 Mcg = 1000 Iu)] Baclofen 5 mg PO HS 12/29/23 12/31/23 Doxazosin Mesylate 8 mg PO HS 12/29/23 12/31/23 Fleet Enema (Unknown Dose) 1 unit RECTAL Q24H PRN 12/29/23 12/31/23 Hydrophilic Cream [Triad (Kerodex 1 applic TOPICAL Q8H 12/29/23 12/31/23 geq)] Lactobacillus(Unknown Dose) 1 cap PO BID 12/29/23 12/31/23 Lidocaine 5% Patch [Lidoderm] 1 patch TOPICAL DAILY 12/29/23 12/31/23 Lidocan Patch(Unknown Dose) 1 dose TOPICAL HS PRN 12/29/23 12/31/23 Losartan Potassium 25 mg PO QAM 12/29/23 12/31/23 Magnesium Hydroxide [Milk of 30 ml PO QAM PRN 12/29/23 12/31/23 Magnesia Concentrate] Multivatmin (Unknown Dose) 1 tab PO QAM 12/29/23 12/31/23 Potassium Chloride ER [K-Dur 20] 20 meq PO QAM 12/29/23 12/31/23 Torsemide [Demadex] 40 mg PO QAM 12/29/23 12/31/23 Vancomycin HCl [Vancomycin HCl 5 ml PO BID 12/29/23 12/31/23 Oral Soln] bisacodyL 10 mg RECTAL Q24H PRN 12/29/23 12/31/23 modafiniL [Provigil] 300 mg PO QAM 12/29/23 12/31/23 Amoxicillin 500 mg PO Q8H 12/31/23 12/31/23 Sulfamethoxazole/Trimethoprim 800 mg PO BID 12/31/23 12/31/23 [Sulfamethoxazole/Trimethoprim DS Tablet] Previous Rx's Medication Instructions Recorded Acetaminophen Tab [Tylenol] 650 mg PO Q6HR PRN tab 11/25/23 Cholestyramine (with Sugar) 4 gm PO BID@1000,2100 #0 packet 11/25/23 [Questran Packet] Allergies Allergy/AdvReac Type Severity Reaction Status Date / Time No Known Allergies Allergy Verified 07/11/24 07:45 Review of Systems ROS Statement: Those systems with pertinent positive or pertinent negative responses have been documented in the HPI. ROS Other: All systems not noted in ROS Statement are negative. Past Medical History Past Medical History: Eye Disorder, GERD/Reflux, Hypertension, Osteoarthritis (OA), Prostate Disorder, Renal Disease, Skin Disorder, Sleep Apnea/CPAP/BIPAP Additional Past Medical History / Comment(s): PRE-CA SKIN LESIONS; BACK PAIN; HX RT RENAL CALCULUS, cellulitis of the lower legs with chronic venous stasis,benign prostatic hypertrophy, obstructive sleep apnea no CPAP, chronic back pain secondary to degenerative disc disease,macular degeneration, circumcision has catheter bag History of Any Multi-Drug Resistant Organisms: None Reported, MRSA Date of last positivie culture/infection: 2014 MDRO Source:: finger Past Surgical History: Joint Replacement, Orthopedic Surgery, Prostate Surgery Additional Past Surgical History / Comment(s): 06/30/18 CYSTOSCOPY REMOVAL OF BLADDER CALCULI AND W/ LT URETERAL STENT INSERTION,LT TOTAL KNEE; RT KNEE MAKOPL ASTY; ABD LIPOMA REMOVED; RT RENAL CALCULUS LITHOTRIPSY, RT URETERAL STENT, TURP; bilateral cataract removal with lens implants,circumcision Past Anesthesia/Blood Transfusion Reactions: No Reported Reaction Past Psychological History: No Psychological Hx Reported Smoking Status: Former smoker - Past Family History Father Family Medical History: Cancer Additional Family Medical History / Comment(s): Grandfather had heart attack, father at 67. Colon cancer- father. General Exam - General Exam Comments Initial Comments: GENERAL: Patient is well-developed and well-nourished. Patient is nontoxic and well- hydrated and is in mild distress. Oral temp was 100.5 ENT: Neck is soft and supple. No significant lymphadenopathy is noted. Oropharynx is clear. Moist mucous membranes. Neck has full range of motion without eliciting any pain. EYES: The sclera were anicteric and conjunctiva were pink and moist. Extraocular movements were intact and pupils were equal round and reactive to light. Eyelids were unremarkable. PULMONARY: Unlabored respirations. Good breath sounds bilaterally. No audible rales rhonchi or wheezing was noted. CARDIOVASCULAR: There is a regular rate and rhythm without any murmurs gallops or rubs. ABDOMEN: Soft and nontender with normal bowel sounds. SKIN: Skin is clear with no lesions or rashes and otherwise unremarkable. NEUROLOGIC: Patient is alert and oriented x3. Cranial nerves II through XII are grossly intact. Motor and sensory are also intact. Normal speech, volume and content. Symmetrical smile. MUSCULOSKELETAL: Normal extremities with adequate strength and full range of motion. No lower extremity swelling or edema. No calf tenderness. LYMPHATICS: No significant lymphadenopathy is noted PSYCHIATRIC: Normal psychiatric evaluation. Limitations: no limitations Course Vital Signs 07/11/24 07/11/24 07:40 07:53 Temperature 98.5 F 100.5 F H Pulse Rate 88 85 Respiratory 18 20 Rate Blood Pressure 115/56 124/66 O2 Sat by Pulse 97 96 Oximetry Medical Decision Making - Medical Decision Making EKG is interpreted by myself but EKG shows a sinus rhythm at 84 bpm MS was 187 QRS is 105 QT interval 303 QTc is 344. Patient EKG shows no ST segment elevation or depression. Was pt. sent in by a medical professional or institution (, PA, PRE PLANNING ADVISOR, urgent care, hospital, or [facility]...) When possible be specific @ -No Did you speak to anyone other than the patient for history (EMS, parent, family, police, friend...)? What history was obtained from this source @ -No Did you review nursing and triage notes (agree or disagree)? Why? @ -I reviewed and agree with nursing and triage notes Were old charts reviewed (outside hosp., previous admission, EMS record, old EKG, old radiological studies, urgent care reports/EKG's, [facility] records)? Report findings @ -No old charts were reviewed Differential Diagnosis? @ -Differential Weakness: Hypoglycemia, shock, sepsis, hyponatremia, anemia, infection, MA, ETOH, adverse medicine reaction, overdose, stroke, this is not meant to be an all-inclusive list. EKG interpreted by me (3pts min.). @ -As above X-rays interpreted by me (1pt min.). @ -Chest x-ray shows no acute abnormality CT interpreted by me (1pt min.). @ -None done U/S interpreted by me (1pt. min.). @ -None done What testing was considered but not performed or refused? (CT, X-rays, U/S, labs)? Why? @ -None What meds were considered but not given or refused? Why? @ -None Did you discuss the management of the patient with other professionals (professionals i.e. , PA, PRE PLANNING ADVISOR, lab, RT, psych nurse, social work assistant, college president, teacher, chief revenue officer, egg caser)? Give summary @ -I spoke with Dr. Jacobo he agreed to admit the patient admitted the patient Was smoking cessation discussed for >3mins.? @ -No Was critical care preformed (if so, how long)? @ -No Were there social determinants of health that impacted care today? How? (Homel essness, low income, unemployed, alcoholism, drug addiction, transportation, low edu. Level, literacy, decrease access to med. care, care home, rehab)? @ -No Was there de-escalation of care discussed even if they declined (Discuss DNR or withdrawal of care, Hospice)? DNR status @ -No What co-morbidities impacted this encounter? (DM, HTN, Smoking, COPD, CAD, Cancer, CVA, ARF, Chemo, Hep., AIDS, mental health diagnosis, sleep apnea, morbid obesity)? @ -None Was patient admitted / discharged? Hospital course, mention meds given and route, prescriptions, significant lab abnormalities, going to OR and other pertinent info. @ -Patient has an obvious urinary tract infection patient was given 2 g of Roce phin. I spoke with Dr. Jacobo he agreed to admit the patient admit the patient I wrote admitting orders I spoke with Dr. Rodarte Undiagnosed new problem with uncertain prognosis? @ -No Drug Therapy requiring intensive monitoring for toxicity (Heparin, Nitro, Insulin, Cardizem)? @ -No Were any procedures done? @ -No Diagnosis/symptom? @ -Urinary tract infection Acute, or Chronic, or Acute on Chronic? @ -Acute Uncomplicated (without systemic symptoms) or Complicated (systemic symptoms)? @ -Complicated Side effects of treatment? @ -No Exacerbation, Progression, or Severe Exacerbation? @ -No Poses a threat to life or bodily function? How? (Chest pain, USA, MA, pneumonia, PE, COPD, DKA, ARF, appy, cholecystitis, CVA, Diverticulitis, Homicidal, Suicidal, threat to staff... and all critical care pts) @ -Yes this can lead to sepsis and endorgan dysfunction - Lab Data Result diagrams: 07/11/24 08:26 07/11/24 08:26 Lab Results 07/11/24 07/11/24 07/11/24 Range/Units 08:26 08:26 08:26 WBC 11.0 H (3.8-10.6) k/uL RBC 3.76 L (4.30-5.90) m/uL Hgb 12.2 L (13.0-17.5) gm/dL Hct 36.7 L (39.0-53.0) % MCV 97.7 (80.0-100.0) fL MCH 32.5 (25.0-35.0) pg MCHC 33.3 (31.0-37.0) g/dL RDW 13.7 (11.5-15.5) % Plt Count 239 (150-450) k/uL MPV 7.6 Neutrophils % 87 % Lymphocytes % 5 % Monocytes % 6 % Eosinophils % 0 % Basophils % 0 % Neutrophils # 9.5 H (1.3-7.7) k/uL Lymphocytes # 0.6 L (1.0-4.8) k/uL Monocytes # 0.7 (0-1.0) k/uL Eosinophils # 0.0 (0-0.7) k/uL Basophils # 0.0 (0-0.2) k/uL PT 10.9 (10.0-12.5) sec INR 1.0 (<1.2) APTT 25.1 (22.0-30.0) sec Sodium 135 L (137-145) mmol/L Potassium 3.5 (3.5-5.1) mmol/L Chloride 93 L (98-107) mmol/L Carbon Dioxide 34 H (22-30) mmol/L Anion Gap 8 mmol/L BUN 16 (9-20) mg/dL Creatinine 1.06 (0.66-1.25) mg/dL Est GFR (CKD-EPI)AfAm 79 (>60 ml/min/1.73 sqM) Est GFR (CKD-EPI)NonAf 68 (>60 ml/min/1.73 sqM) Glucose 144 H (74-99) mg/dL Plasma Lactic Acid Casey (0.7-2.0) mmol/L Calcium 8.9 (8.4-10.2) mg/dL Total Bilirubin 0.5 (0.2-1.3) mg/dL AST 25 (17-59) U/L ALT 17 (4-49) U/L Alkaline Phosphatase 83 (38-126) U/L Total Protein 6.5 (6.3-8.2) g/dL Albumin 3.9 (3.5-5.0) g/dL Urine Color Urine Appearance (Clear) Urine pH (5.0-8.0) Ur Specific [place] (1.001-1.035) Urine Protein (Negative) Urine Glucose (UA) (Negative) Urine Ketones (Negative) Urine Blood (Negative) Urine Nitrite (Negative) Urine Bilirubin (Negative) Urine Urobilinogen (<2.0) mg/dL Ur Leukocyte Esterase (Negative) Urine RBC (0-5) /hpf Urine WBC (0-5) /hpf Urine WBC Clumps (None) /hpf Urine Bacteria (None) /hpf Urine Mucus (None) /hpf 07/11/24 07/11/24 Range/Units 08:26 08:44 WBC (3.8-10.6) k/uL RBC (4.30-5.90) m/uL Hgb (13.0-17.5) gm/dL Hct (39.0-53.0) % MCV (80.0-100.0) fL MCH (25.0-35.0) pg MCHC (31.0-37.0) g/dL RDW (11.5-15.5) % Plt Count (150-450) k/uL MPV Neutrophils % % Lymphocytes % % Monocytes % % Eosinophils % % Basophils % % Neutrophils # (1.3-7.7) k/uL Lymphocytes # (1.0-4.8) k/uL Monocytes # (0-1.0) k/uL Eosinophils # (0-0.7) k/uL Basophils # (0-0.2) k/uL PT (10.0-12.5) sec INR (<1.2) APTT (22.0-30.0) sec Sodium (137-145) mmol/L Potassium (3.5-5.1) mmol/L Chloride (98-107) mmol/L Carbon Dioxide (22-30) mmol/L Anion Gap mmol/L BUN (9-20) mg/dL Creatinine (0.66-1.25) mg/dL Est GFR (CKD-EPI)AfAm (>60 ml/min/1.73 sqM) Est GFR (CKD-EPI)NonAf (>60 ml/min/1.73 sqM) Glucose (74-99) mg/dL Plasma Lactic Acid Casey 1.3 (0.7-2.0) mmol/L Calcium (8.4-10.2) mg/dL Total Bilirubin (0.2-1.3) mg/dL AST (17-59) U/L ALT (4-49) U/L Alkaline Phosphatase (38-126) U/L Total Protein (6.3-8.2) g/dL Albumin (3.5-5.0) g/dL Urine Color Light Yellow Urine Appearance Turbid (Clear) Urine pH 7.0 (5.0-8.0) Ur Specific [place] 1.012 (1.001-1.035) Urine Protein 1+ H (Negative) Urine Glucose (UA) Negative (Negative) Urine Ketones Negative (Negative) Urine Blood Moderate H (Negative) Urine Nitrite Negative (Negative) Urine Bilirubin Negative (Negative) Urine Urobilinogen <2.0 (<2.0) mg/dL Ur Leukocyte Esterase Large H (Negative) Urine RBC 7 H (0-5) /hpf Urine WBC >182 H (0-5) /hpf Urine WBC Clumps Many H (None) /hpf Urine Bacteria Many H (None) /hpf Urine Mucus Rare H (None) /hpf Disposition Clinical Impression: Urinary tract infection, Generalized weakness Disposition: ADMITTED IP TO THIS HOSP Referrals: Tamara Jacobo MD [Primary Care Provider] - 1-2 days Time of Disposition: 09:19
[2024-07-11] MEDS: ACETAMINOPHEN TAB 500 MG TAB PO STA (08:13)
[2024-07-11] MEDS: IBUPROFEN 600 MG TAB PO STA (08:13)
[2024-07-11 08:45] LABS: Basophils % (A) 0 %; Eosinophils % (A) 0 %; HCT 36.7 % (39.0-53.0); HGB 12.2 gm/dL (13.0-17.5); Lymphocytes # (A) 0.6 k/uL (1.0-4.8); Lymphocytes % (A) 5 %; MCH 32.5 pg (25.0-35.0); MCHC 33.3 g/dL (31.0-37.0); MCV 97.7 fL (80.0-100.0); Mean Platelet Volume 7.6; Monocytes # (A) 0.7 k/uL (0-1.0); Monocytes % (A) 6 %; Neutrophils # (A) 9.5 k/uL (1.3-7.7); Neutrophils % (A) 87 %; Platelet Count 239 k/uL (150-450); RBC 3.76 m/uL (4.30-5.90); RDW 13.7 % (11.5-15.5)
[2024-07-11] MEDS: cefTRIAXone IN SWFI 1,000 MG/10 ML SYRINGE IVP STA (08:45)
[2024-07-11] MEDS: SODIUM CHLORIDE 0.9% 500 ML 500 ML IV SCH (08:54)
[2024-07-11 08:58] LABS: ALT 17 U/L (4-49); AST 25 U/L (17-59); African American GFR (CKD) 79 (>60 ml/min/1.73 sqM); Albumin 3.9 g/dL (3.5-5.0); Alkaline Phosphatase 83 U/L (38-126); Anion Gap 8 mmol/L; Blood Urea Nitrogen 16 mg/dL (9-20); Calcium 8.9 mg/dL (8.4-10.2); Carbon Dioxide 34 mmol/L (22-30); Chloride 93 mmol/L (98-107); Glucose 144 mg/dL (74-99); Non-African American GFR(CKD) 68 (>60 ml/min/1.73 sqM); Potassium 3.5 mmol/L (3.5-5.1); Sodium 135 mmol/L (137-145); Total Bilirubin 0.5 mg/dL (0.2-1.3); Total Protein 6.5 g/dL (6.3-8.2)
[2024-07-11 09:10] LABS: Appearance,Urine Turbid (Clear); Bacteria,Urine Many /hpf; Bilirubin,Urine Negative (Negative); Blood,Urine Moderate (Negative); Color,Urine Light Yellow; Glucose,Urine (UA) Negative (Negative); Ketones,Urine Negative (Negative); Leukocyte Esterase,Urine Large (Negative); Mucus,Urine Rare /hpf; Nitrite,Urine Negative (Negative); Protein,Urine 1+ (Negative); RBC,Urine 7 /hpf (0-5); Specific Gravity,Urine 1.012 (1.001-1.035); Urobilinogen,Urine <2.0 mg/dL (<2.0); WBC,Urine >182 /hpf (0-5)
[2024-07-11 09:11] LABS: Partial Thromboplastin Time 25.1 sec (22.0-30.0); Prothrombin Time 10.9 sec (10.0-12.5)
--- NOTE | 2024-07-11 09:26 | XR ---
EXAMINATION TYPE: XR chest 2V DATE OF EXAM: 07/11/2024 9:18 AM COMPARISON: Chest x-ray October 26, 2023 CLINICAL INDICATION: Male, 78 years old with history of Fever, TECHNIQUE: Frontal and lateral views of the chest are obtained. FINDINGS: Low lung volumes are redemonstrated. There is no focal air space opacity, pleural effusion , or pneumothorax seen. Mild cardiomegaly is seen. The osseous structures are intact. IMPRESSION: Low lung volumes and mild cardiomegaly without acute pulmonary infiltrate. [facility], , 07/11/2024 9:24 AM
[2024-07-11] MEDS: SODIUM CHLORIDE 0.9% 1,000 ML IV ONE (09:52)
--- NOTE | 2024-07-11 13:25 | P.HPIM ---
History of Present Illness H&P Date: 07/11/24 Chief Complaint: UTI with SIRS HISTORY OF PRESENT ILLNESS: This is a 78-year-old male with a previous medical history significant for hypertension and hypertensive cardiovascular disease, mixed hyperlipidemia, history of macrocytic anemia, history of recurrent urinary tract infection, history of bladder atony with self-catheterization, history of C. difficile co litis, history of enlarged prostate, history of obesity with obstructive sleep apnea, history of vitamin D deficiency, chronic diastolic heart failure, patient presented to the emergency department at [facility] today in the morning after he was sitting on the seated walker and all of a sudden he slid down because his leg could not hold his body, he did not injure himself, however he hit his right hand with the Board and has some skin tears on it patient was seen in the emergency department after his called 911 as the patient was not able to get up and patient was complaining of generalized weakness and fever as well he was seen in the emergency department by Dr. Packer he had laboratory evaluation that did show evidence of leukocytosis as well as urinary tract infection with sepsis, he was started on IV antibiotic in the form of ceftriaxone 2 g piggyback every 24 hours, infectious disease consultation was obtained, blood cultures, urine culture, and because of the prior history of C. difficile colitis he was started on vancomycin 125 mg orally 3 times every day prophylactically and he was restarted back on his probiotic as well. Infectious disease consultation was obtained from Dr. Suggs. REVIEW OF SYSTEMS: Constitutional: No documented fever, no chills, no night sweats. No weight change. No weakness, fatigue or lethargy. No daytime sleepiness. EENT: No headache. No blurred vision or double vision, no loss of vision. No loss of Hearing, no ringing in the ears, no dizziness. No nasal drainage or congestion. No epistaxis. No sore throat. Lungs: No shortness of breath, no cough, no sputum production. No wheezing. Reports dyspnea with activity. Cardiovascular: No chest pain, no lower extremity edema. No palpitations. No paroxysmal nocturnal dyspnea. No orthopnea. No lightheadedness or dizziness. No syncopal episodes. Abdominal: Reports abdominal pain. No nausea, vomiting. No diarrhea. No constipation. No bloody or tarry stools reports loss of appetite. Genitourinary: No dysuria, increased frequency, urgency. No urinary retention. Musculoskeletal: No myalgias. No muscle weakness, no gait dysfunction, no frequent falls. No back pain. No neck pain. Integumentary: No wounds, no lesions. No rash or pruritus. No unusual bruising. No change in hair or nails. Neurologic: No aphasia. No facial droop. No change in mentation. No head injury. No headache. No paralysis. No paresthesia. Psychiatric: No depression. No anxiety. No mood swings. Endocrine: No abnormal blood sugars. No weight change. PAST MEDICAL HISTORY: Hypertension and hypertensive cardiovascular disease. Mixed hyperlipidemia. Obesity with obstructive sleep apnea. Macrocytic anemia. Enlarged prostate. Bladder atony with self-catheterization. Recurrent urinary tract infection. Recurrent C. difficile colitis. Vitamin D deficiency. History of kidney stones. PAST SURGICAL HISTORY: Left total knee arthroplasty 2003 Right knee MAKOplasty 2007 Bilateral cataract surgery. Bilateral kidney stones with J stent placement and cystoscopy. Left carpal tunnel release. Colonoscopy 2019. 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 FAMILY HISTORY: Father at age 67 from colon cancer, mother at age of 91 from congest earl heart failure and had permanent pacemaker placement, patient had 2 brothers 1 at the age of 82 from prostate cancer, the other brother is 79 with a history of hemorrhagic CVA that he is recovered from, patient had 3 sisters 1 at the age of 82 from obesity complication the other 1 is 86 obese and has mental issues, and the third 1 is 82-year-old has obesity and osteoarthritis PHYSICAL EXAMINATION: General: This is 78-year-old male laying down in bed appears to be in minimal distress. Generally weak. HEENT: Head is atraumatic, normocephalic, pupils were equal round reactive to light and recommendation, extraocular muscle movement were intact, sclera nonicteric, conjunctivae were pale, mucous membranes of the mouth are somewhat dry. Neck: Supple, no JVP, normal carotid upstroke bilaterally, no lymphadenopathy. Chest: Decreased breath sounds at the bases, few rhonchi, no expiratory wheezes, no chest wall tenderness, no intercostal retractions. Heart: First heart sound is normal, second heart sounds normal there is systolic ejection murmur 2/6 systolic in the left sternal border. Abdomen: Soft, nontender, nondistended, positive bowel sounds. Extremities: There is no edema no calf tenderness DP +2 bilaterally. Neurologic examination: Patient is awake alert and oriented x3, cranial nerves II-12 appear grossly intact, muscle power were 4 out of 5 in upper extremities and 2 out of 5 in bilateral lower extremities, deep tendon reflexes normal bilaterally. ASSESSMENT AND PLAN: 1. Complicated urinary tract infection with sepsis. Urine culture, blood culture, continue ceftriaxone 2 g piggyback every 24 hours, infectious disease consultation, continue to monitor the patient very closely, follow-up with the patient over the next 24 hours. 2. Medical debility with generalized weakness and severe weakness of both lower extremities, patient is not able to hold his body, physical therapy evaluation social work consultation for possible subacute rehabilitation. 3. Recurrent C. difficile colitis. Patient was treated multiple times for C. difficile, I will start the patient on vancomycin 125 mg orally 3 times every day while he is on antibiotic, infectious disease consultation, continue with probiotics on a daily basis. 4. Hypertension and hypertensive cardiovascular disease. Continue patient on losartan 25 mg orally once every day, monitor the patient blood pressure very closely. 5. Mixed hyperlipidemia. Patient is not taking any medication at this point in time. 6. Enlarged prostate. With bladder atony and self-catheterization currently has a Garcia catheter in place. Continue with doxazosin 8 mg at bedtime. 7. Spondylosis of the lumbar spine. Continue baclofen 5 mg at bedtime. 8. History of recurrent kidney stones. Stable at this time. 9. DVT prophylaxis. Lovenox 40 mg subcutaneous every 24 hours. 10. GI prophylaxis. Continue patient on Protonix 40 mg once every day. 11. Obesity with obstructive sleep apnea. Continue patient on CPAP. Continue modafinil 300 mg orally once every day. 12. Admit to inpatient. Estimated length of stay 2 midnights. 13. Full code. 14. Physical therapy evaluation for generalized weakness and weakness in both lower extremities. 15. Social work consultation for discharge planning likely subacute rehabilitation at [facility] Past Medical History Past Medical History: Eye Disorder, GERD/Reflux, Hypertension, Osteoarthritis (OA), Prostate Disorder, Renal Disease, Skin Disorder, Sleep Apnea/CPAP/BIPAP Additional Past Medical History / Comment(s): PRE-CA SKIN LESIONS; BACK PAIN; HX RT RENAL CALCULUS, cellulitis of the lower legs with chronic venous stasis,benign prostatic hypertrophy, obstructive sleep apnea no CPAP, chronic back pain secondary to degenerative disc disease,macular degeneration, ci rcumcision has catheter bag History of Any Multi-Drug Resistant Organisms: None Reported, MRSA Date of last positivie culture/infection: 2014 MDRO Source:: finger Past Surgical History: Joint Replacement, Orthopedic Surgery, Prostate Surgery Additional Past Surgical History / Comment(s): 06/30/18 CYSTOSCOPY REMOVAL OF BLADDER CALCULI AND W/ LT URETERAL STENT INSERTION,LT TOTAL KNEE; RT KNEE MAKOPLASTY; ABD LIPOMA REMOVED; RT RENAL CALCULUS LITHOTRIPSY, RT URETERAL STENT, TURP; bilateral cataract removal with lens implants,circumcision Past Anesthesia/Blood Transfusion Reactions: No Reported Reaction Past Psychological History: No Psychological Hx Reported Smoking Status: Former smoker - Past Family History Father Family Medical History: Cancer Additional Family Medical History / Comment(s): Grandfather had heart attack, father at 67. Colon cancer- father. Medications and Allergies Home Medications Medication Instructions Recorded Confirmed Type Aspirin 325 mg PO DAILY 10/28/13 07/11/24 History Multivitamins, Thera [Multivitamin 1 tab PO DAILY 10/28/13 07/11/24 History (formulary)] Cholecalciferol [Vitamin D3 (25 50 mcg PO DAILY 05/29/21 07/11/24 History Mcg = 1000 Iu)] Acetaminophen Tab [Tylenol] 650 mg PO Q6HR PRN tab 11/25/23 07/11/24 Rx Baclofen 5 mg PO HS 12/29/23 07/11/24 History Doxazosin Mesylate 8 mg PO HS 12/29/23 07/11/24 History Potassium Chloride ER [K-Dur 20] 20 meq PO BID 12/29/23 07/11/24 History Torsemide [Demadex] 40 mg PO DAILY 12/29/23 07/11/24 History modafiniL [Provigil] 300 mg PO DAILY 12/29/23 07/11/24 History L.acidoph,Paracasei, B.lactis 1 cap PO DAILY 07/11/24 07/11/24 History [Probiotic] Losartan [Cozaar] 25 mg PO DAILY 07/11/24 07/11/24 History Phentermine HCl [Adipex-P] 37.5 mg PO DAILY 07/11/24 07/11/24 History Allergies Allergy/AdvReac Type Severity Reaction Status Date / Time No Known Allergies Allergy Verified 07/11/24 07:45 Physical Exam Vitals: Vital Signs Temp Pulse Resp BP Pulse Ox 07/11/24 09:24 99.5 F 79 19 105/49 97 07/11/24 07:53 100.5 F H 85 20 124/66 96 07/11/24 07:40 98.5 F 88 18 115/56 97 Intake and Output 07/10/24 07/11/24 07/11/24 22:59 06:59 14:59 Other: Weight 107.048 kg Results CBC & Chem 7: 07/11/24 08:26 07/11/24 08:26 Labs: Abnormal Lab Results - Last 24 Hours (Table) 07/11/24 07/11/24 07/11/24 Range/Units 08:26 08:26 08:44 WBC 11.0 H (3.8-10.6) k/uL RBC 3.76 L (4.30-5.90) m/uL Hgb 12.2 L (13.0-17.5) gm/dL Hct 36.7 L (39.0-53.0) % Neutrophils # 9.5 H (1.3-7.7) k/uL Lymphocytes # 0.6 L (1.0-4.8) k/uL Sodium 135 L (137-145) mmol/L Chloride 93 L (98-107) mmol/L Carbon Dioxide 34 H (22-30) mmol/L Glucose 144 H (74-99) mg/dL Urine Protein 1+ H (Negative) Urine Blood Moderate H (Negative) Ur Leukocyte Esterase Large H (Negative) Urine RBC 7 H (0-5) /hpf Urine WBC >182 H (0-5) /hpf Urine WBC Clumps Many H (None) /hpf Urine Bacteria Many H (None) /hpf Urine Mucus Rare H (None) /hpf
[2024-07-11] MEDS: VANCOMYCIN 125 MG CAPSULE PO SCH (16:57)
[2024-07-11] MEDS: BACLOFEN 10 MG TAB PO SCH (21:15)
[2024-07-11] MEDS: ACETAMINOPHEN TAB 325 MG TAB PO PRN (21:16)
[2024-07-11] MEDS: DOXAZOSIN 4 MG TAB PO SCH (21:16)
[2024-07-12 08:43] LABS: ALT 11 U/L (10-49); AST 29 U/L (14-35); Albumin 3.2 g/dL (3.8-4.9); Albumin/Globulin Ratio 1.88 Ratio (1.60-3.17); Alkaline Phosphatase 64 U/L (41-126); Blood Urea Nitrogen 14.4 mg/dL (9.0-27.0); Calcium 7.9 mg/dL (8.7-10.3); Carbon Dioxide 25.6 mmol/L (21.6-31.8); Chloride 98 mmol/L (96-109); Globulin 1.7 g/dL (1.6-3.3); Glucose 128 mg/dL (70-110); Potassium 3.1 mmol/L (3.5-5.5); Sodium 135 mmol/L (135-145); Total Bilirubin 0.3 mg/dL (0.3-1.2); Total Protein 4.9 g/dL (6.2-8.2)
[2024-07-12] MEDS: CHOLECALCIFEROL 25 MCG (1000 IU) TABLET PO SCH (08:45)
[2024-07-12] MEDS: MULTIVITAMINS, THERA 1 EACH TAB PO SCH (08:45)
[2024-07-12] MEDS: modafiniL 100 MG TAB PO SCH (08:45)
[2024-07-12] MEDS: ASPIRIN 325 MG TAB PO SCH (08:45)
[2024-07-12] MEDS: ENOXAPARIN 40 MG/0.4 ML SYRINGE SQ SCH (08:45)
[2024-07-12] MEDS: LOSARTAN 25 MG TAB PO SCH (08:45)
[2024-07-12] MEDS: LACTOBACILLUS ACIDOPHILUS/PECT 1 EACH CAPSULE PO SCH (08:45)
[2024-07-12 09:00] LABS: Basophils # (A) 0.02 X 10*3/uL (0.00-0.10); Basophils % (A) 0.2 %; Eosinophils # (A) 0 X 10*3/uL (0.04-0.35); Eosinophils % (A) 0 %; HCT 30.8 % (39.6-50.0); HGB 10.3 g/dL (13.0-17.0); Lymphocytes # (A) 0.56 X 10*3/uL (0.90-5.00); Lymphocytes % (A) 4.7 %; MCH 32.5 pg (27.0-32.0); MCHC 33.4 g/dL (32.0-37.0); MCV 97.2 FL (80.0-97.0); Mean Platelet Volume 10.7 FL (9.5-12.2); Monocytes # (A) 0.85 X 10*3/uL (0.20-1.00); Monocytes % (A) 7.2 %; NRBC Per 100 WBC 0 X 10*3/uL (0.00-0.01); Neutrophils # (A) 10.35 X 10*3/uL (1.80-7.70); Neutrophils % (A) 87.3 %; Platelet Count 192 X 10*3/uL (140-440); RBC 3.17 X 10*6/uL (4.40-5.60); RDW 13.7 % (11.5-14.5); WBC 11.85 X 10*3/uL (4.50-10.00)
--- NOTE | 2024-07-12 09:13 | P.CONS ---
History of Present Illness - Reason for Consult Consult date: 07/11/24 UTI, history of C. difficile Requesting physician: Acosta Packer - Chief Complaint Weakness and fall x 1 day - History of Present Illness patient is a 78-year-old male with a past medical history significant for hypertension reflux prostate disorder requiring self-catheterization presenting to the hospital concerning for fever last night and the patient get ting weaker over the last 1 week patient mention that he presented to hospital he was not able to walk and the patient has been brought to the hospital for further evaluation patient did have a temperature of 100.5 F patient was mildly tachycardic but not hypotensive or hypoxic no need for supplemental oxygen he did have a white count of 11,000 with a left shift creatinine 1.06 liver enzymes are normal urine has been positive patient had been complaining of some suprapubic discomfort urine simply more cloudy has been diagnosed with a UTI started on ceftriaxone infectious disease was consulted for further management patient also chest x-ray with low lung volumes with mild cardiomegaly but no acute pulmonary infiltrate Review of Systems Positive point and negatives has been mentioned in the HPI, complete review of systems was performed and all other systems are negative Past Medical History Past Medical History: Eye Disorder, GERD/Reflux, Hypertension, Osteoarthritis (OA), Prostate Disorder, Renal Disease, Skin Disorder, Sleep Apnea/CPAP/BIPAP Additional Past Medical History / Comment(s): PRE-CA SKIN LESIONS; BACK PAIN; HX RT RENAL CALCULUS, cellulitis of the lower legs with chronic venous stasis,benign prostatic hypertrophy, obstructive sleep apnea no CPAP, chronic back pain secondary to degenerative disc disease,macular degeneration, circumcision has catheter bag History of Any Multi-Drug Resistant Organisms: None Reported, MRSA Year Discovered:: 2014 MDRO Source:: finger Past Surgical History: Joint Replacement, Orthopedic Surgery, Prostate Surgery Additional Past Surgical History / Comment(s): 06/30/18 CYSTOSCOPY REMOVAL OF BLADDER CALCULI AND W/ LT URETERAL STENT INSERTION,LT TOTAL KNEE; RT KNEE MAKOPLASTY; ABD LIPOMA REMOVED; RT RENAL CALCULUS LITHOTRIPSY, RT URETERAL STENT, TURP; bilateral cataract removal with lens implants,circumcision Past Anesthesia/Blood Transfusion Reactions: No Reported Reaction Past Psychological History: No Psychological Hx Reported Smoking Status: Former smoker - Past Family History Father Family Medical History: Cancer Additional Family Medical History / Comment(s): Grandfather had heart attack, father at 67. Colon cancer- father. Mother Family Medical History: Congestive Heart Failure (CHF) Brother(s) Family Medical History: CVA/TIA Sister(s) Family Medical History: Unable to Obtain Medications and Allergies Home Medications Medication Instructions Recorded Confirmed Type Aspirin 325 mg PO DAILY 10/28/13 07/11/24 History Multivitamins, Thera [Multivitamin 1 tab PO DAILY 10/28/13 07/11/24 History (formulary)] Cholecalciferol [Vitamin D3 (25 50 mcg PO DAILY 05/29/21 07/11/24 History Mcg = 1000 Iu)] Acetaminophen Tab [Tylenol] 650 mg PO Q6HR PRN tab 11/25/23 07/11/24 Rx Baclofen 5 mg PO HS 12/29/23 07/11/24 History Doxazosin Mesylate 8 mg PO HS 12/29/23 07/11/24 History Potassium Chloride ER [K-Dur 20] 20 meq PO BID 12/29/23 07/11/24 History Torsemide [Demadex] 40 mg PO DAILY 12/29/23 07/11/24 History modafiniL [Provigil] 300 mg PO DAILY 12/29/23 07/11/24 History L.acidoph,Paracasei, B.lactis 1 cap PO DAILY 07/11/24 07/11/24 History [Probiotic] Losartan [Cozaar] 25 mg PO DAILY 07/11/24 07/11/24 History Phentermine HCl [Adipex-P] 37.5 mg PO DAILY 07/11/24 07/11/24 History Allergies Allergy/AdvReac Type Severity Reaction Status Date / Time No Known Allergies Allergy Verified 07/11/24 07:45 Physical Exam Vitals: Vital Signs Temp Pulse Resp BP Pulse Ox 07/11/24 11:00 98.2 F 78 18 111/59 96 07/11/24 10:50 98.5 F 07/11/24 09:24 99.5 F 79 19 105/49 97 07/11/24 07:53 100.5 F H 85 20 124/66 96 07/11/24 07:40 98.5 F 88 18 115/56 97 Intake and Output 07/10/24 07/11/24 07/11/24 22:59 06:59 14:59 Other: Weight 107.048 kg GENERAL DESCRIPTION: Elderly male lying in bed, no distress. No tachypnea or accessory muscle of respiration use. HEENT: Shows Pallor , no scleral icterus. Oral mucous membrane is dry. NECK: Trachea central, no thyromegaly. LUNGS: Unlabored breathing. Clear to auscultation anteriorly. HEART: S1, S2, regular rate and rhythm. No loud murmur ABDOMEN: Soft, no tenderness , guarding or rigidity, no organomegaly EXTREMITIES: Right hand dorsum and wrist area did have 2 open wounds but no surrounding redness or soft tissue SKIN: No rash, no masses palpable. NEUROLOGICAL: The patient is awake, alert, oriented x3, mood and affect normal. Results CBC & Chem 7: 07/12/24 05:37 07/12/24 05:37 Labs: Abnormal Lab Results - Last 24 Hours (Table) 07/11/24 07/11/24 07/11/24 Range/Units 08:26 08:26 08:44 WBC 11.0 H (3.8-10.6) k/uL RBC 3.76 L (4.30-5.90) m/uL Hgb 12.2 L (13.0-17.5) gm/dL Hct 36.7 L (39.0-53.0) % Neutrophils # 9.5 H (1.3-7.7) k/uL Lymphocytes # 0.6 L (1.0-4.8) k/uL Sodium 135 L (137-145) mmol/L Chloride 93 L (98-107) mmol/L Carbon Dioxide 34 H (22-30) mmol/L Glucose 144 H (74-99) mg/dL Urine Protein 1+ H (Negative) Urine Blood Moderate H (Negative) Ur Leukocyte Esterase Large H (Negative) Urine RBC 7 H (0-5) /hpf Urine WBC >182 H (0-5) /hpf Urine WBC Clumps Many H (None) /hpf Urine Bacteria Many H (None) /hpf Urine Mucus Rare H (None) /hpf Assessment and Plan (1) Open wound of right hand Current Visit: Yes Status: Acute Code(s): S61.401A - UNSPECIFIED OPEN WOUND OF RIGHT HAND, INITIAL ENCOUNTER SNOMED Code(s): 40227193286250072 (2) Urinary tract infection Current Visit: Yes Status: Acute Priority: Medium Code(s): N39.0 - URINARY TRACT INFECTION, SITE NOT SPECIFIED SNOMED Code(s): 54372407 (3) Sepsis Current Visit: No Status: Acute Code(s): A41.9 - SEPSIS, UNSPECIFIED ORGANISM SNOMED Code(s): 60024047 Plan: 1patient presented to hospital with sepsis in this patient who did have fever elevated white count meeting currently for SIRS source is likely UTI in this patient who did have a history of prostate disorder requiring self- catheterization some suprapubic discomfort concerning for symptomatic UTI likely from enteric gram-negative pathogen. 2patient also have a laceration/wound times to the right hand and wrist area but not definite cellulitis. 3Rocephin 2 g daily while waiting for the culture to finalize. 4local wound care with the Aquacel silver dressing change q. 48-hour. We will follow on clinical condition and cultures to further adjust medication if needed Thank you for this consultation we will follow the patient along with you Dictation was produced using [employer] dictation software. please excuse any grammatical, word or spelling errors. Time with Patient: Greater than 30
--- NOTE | 2024-07-12 10:13 | P.PN ---
Subjective Progress Note Date: 07/12/24 HISTORY OF PRESENT ILLNESS: This is a 78-year-old male with a previous medical history significant for hypertension and hypertensive cardiovascular disease, mixed hyperlipidemia, history of macrocytic anemia, history of recurrent urinary tract infection, history of bladder atony with self-catheterization, history of C. difficile colitis, history of enlarged prostate, history of obesity with obstructive sleep apnea, history of vitamin D deficiency, chronic diastolic heart failure, patient presented to the emergency department at [facility] today in the morning after he was sitting on the seated walker and all of a sudden he slid down because his leg could not hold his body, he did not injure himself, however he hit his right hand with the Board and has some skin tears on it patient was seen in the emergency department after his called 911 as the patient was not able to get up and patient was complaining of generalized weakness and fever as well he was seen in the emergency department by Dr. Packer he had laboratory evaluation that did show evidence of leukocytosis as well as urinary tract infection with sepsis, he was started on IV antibiotic in the form of ceftriaxo ne 2 g piggyback every 24 hours, infectious disease consultation was obtained, blood cultures, urine culture, and because of the prior history of C. difficile colitis he was started on vancomycin 125 mg orally 3 times every day prophylactically and he was restarted back on his probiotic as well. Infectious disease consultation was obtained from Dr. Rodarte. 07/12: Patient lying elevated over distress, has been able better today, he complains of dry mouth, he is not getting any IV fluid, will start patient on IV fluid for normal saline 75 cc an hour, monitor the patient symptoms very closely, await the final result of the culture, blood culture urine culture still pending, physical therapy evaluation, likely patient require to go for subacute rehabilitation REVIEW OF SYSTEMS: Constitutional: No documented fever, no chills, no night sweats. No weight change. No weakness, fatigue or lethargy. No daytime sleepiness. EENT: No headache. No blurred vision or double vision, no loss of vision. No loss of Hearing, no ringing in the ears, no dizziness. No nasal drainage or congestion. No epistaxis. No sore throat. Lungs: No shortness of breath, no cough, no sputum production. No wheezing. Reports dyspnea with activity. Cardiovascular: No chest pain, no lower extremity edema. No palpitations. No paroxysmal nocturnal dyspnea. No orthopnea. No lightheadedness or dizziness. No syncopal episodes. Abdominal: Reports abdominal pain. No nausea, vomiting. No diarrhea. No const ipation. No bloody or tarry stools reports loss of appetite. Genitourinary: No dysuria, increased frequency, urgency. No urinary retention. Musculoskeletal: No myalgias. No muscle weakness, no gait dysfunction, no frequent falls. No back pain. No neck pain. Integumentary: No wounds, no lesions. No rash or pruritus. No unusual bruising. No change in hair or nails. Neurologic: No aphasia. No facial droop. No change in mentation. No head injury. No headache. No paralysis. No paresthesia. Psychiatric: No depression. No anxiety. No mood swings. Endocrine: No abnormal blood sugars. No weight change. PHYSICAL EXAMINATION: General: This is 78-year-old male laying down in bed appears to be in minimal distress. Generally weak. HEENT: Head is atraumatic, normocephalic, pupils were equal round reactive to light and recommendation, extraocular muscle movement were intact, sclera nonicteric, conjunctivae were pale, mucous membranes of the mouth are somewhat dry. Neck: Supple, no JVP, normal carotid upstroke bilaterally, no lymphadenopathy. Chest: Decreased breath sounds at the bases, few rhonchi, no expiratory wheezes, no chest wall tenderness, no intercostal retractions. Heart: First heart sound is normal, second heart sounds normal there is systolic ejection murmur 2/6 systolic in the left sternal border. Abdomen: Soft, nontender, nondistended, positive bowel sounds. Extremities: There is no edema no calf tenderness DP +2 bilaterally. Neurologic examination: Patient is awake alert and oriented x3, cranial nerves II-12 appear grossly intact, muscle power were 4 out of 5 in upper extremities and 2 out of 5 in bilateral lower extremities, deep tendon reflexes normal bilaterally. ASSESSMENT AND PLAN: 1. Complicated urinary tract infection with sepsis. Urine culture, blood culture, continue ceftriaxone 2 g piggyback every 24 hours, infectious disease consultation, continue to monitor the patient very closely, follow-up with the patient over the next 24 hours. 2. Medical debility with generalized weakness and severe weakness of both lower extremities, patient is not able to hold his body, physical therapy evaluation social work consultation for possible subacute rehabilitation. 3. Recurrent C. difficile colitis. Patient was treated multiple times for C. difficile, I will start the patient on vancomycin 125 mg orally 3 times every day while he is on antibiotic, infectious disease consultation, continue with probiotics on a daily basis. 4. Hypertension and hypertensive cardiovascular disease. Continue patient on losartan 25 mg orally once every day, monitor the patient blood pressure very closely. 5. Mixed hyperlipidemia. Patient is not taking any medication at this point in time. 6. Enlarged prostate. With bladder atony and self-catheterization currently has a Garcia catheter in place. Continue with doxazosin 8 mg at bedtime. 7. Spondylosis of the lumbar spine. Continue baclofen 5 mg at bedtime. 8. History of recurrent kidney stones. Stable at this time. 9. DVT prophylaxis. Lovenox 40 mg subcutaneous every 24 hours. 10. GI prophylaxis. Continue patient on Protonix 40 mg once every day. 11. Obesity with obstructive sleep apnea. Continue patient on CPAP. Continue modafinil 300 mg orally once every day. Objective - Vital Signs Vital signs: Vital Signs Temp 98.9 F 07/12/24 07:00 Pulse 85 07/12/24 07:00 Resp 20 07/12/24 07:00 BP 116/61 07/12/24 07:00 Pulse Ox 97 07/12/24 07:00 FiO2 Intake & Output 07/11/24 07/12/24 07/12/24 18:59 06:59 18:59 Intake Total 500 Output Total 1250 Balance -750 Weight 107.048 kg 107.048 kg Intake: Oral 500 Output: Urine 1250 Other: Voiding Method Indwelling Catheter Indwelling Catheter - Labs CBC & Chem 7: 07/12/24 05:37 07/12/24 05:37 Labs: Abnormal Lab Results - Last 24 Hours (Table) 07/12/24 07/12/24 Range/Units 05:37 05:37 WBC 11.85 H (4.50-10.00) X 10*3/uL RBC 3.17 L (4.40-5.60) X 10*6/uL Hgb 10.3 L (13.0-17.0) g/dL Hct 30.8 L (39.6-50.0) % MCV 97.2 H (80.0-97.0) FL MCH 32.5 H (27.0-32.0) pg Immature Gran # 0.07 H (0.00-0.04) X 10*3/uL Neutrophils # 10.35 H (1.80-7.70) X 10*3/uL Lymphocytes # 0.56 L (0.90-5.00) X 10*3/uL Eosinophils # 0 L (0.04-0.35) X 10*3/uL Potassium 3.1 L (3.5-5.5) mmol/L Glucose 128 H (70-110) mg/dL Calcium 7.9 L (8.7-10.3) mg/dL Total Protein 4.9 L (6.2-8.2) g/dL Albumin 3.2 L (3.8-4.9) g/dL
[2024-07-12] MEDS: SODIUM CHLORIDE 0.9% 1,000 ML IV SCH (11:43)
--- NOTE | 2024-07-12 15:04 | P.PN ---
Subjective Progress Note Date: 07/12/24 Principal diagnosis: Reason for follow up with sepsis and UTI patient is a 78-year-old male with a past medical history significant for hypertension reflux prostate disorder requiring self-catheterization presenting to the hospital concerning for fever, did have positive UA concerning for symptomatic UTI with sepsis. On today's evaluation that is 07/12/2024, Patient did spike a temperature of 102.2 F at 3 AM, the patient is afebrile since then patient denies having any chest pain shortness of breath or cough, the patient is currently on room air, patient denies any abdominal pain no diarrhea no nausea no vomiting. Patient white count is 11.85, creatinine 0.9 cultures are currently pending Objective - Vital Signs Vital signs: Vital Signs Temp 98.9 F 07/12/24 07:00 Pulse 85 07/12/24 07:00 Resp 20 07/12/24 07:00 BP 116/61 07/12/24 07:00 Pulse Ox 97 07/12/24 07:00 FiO2 Intake & Output 07/11/24 07/12/24 07/12/24 18:59 06:59 18:59 Intake Total 500 120 Output Total 1250 Balance -750 120 Weight 107.048 kg 107.048 kg Intake: Oral 500 120 Output: Urine 1250 Other: Voiding Method Indwelling Catheter Indwelling Catheter - Exam GENERAL DESCRIPTION: An elderly male lying in bed in no distress RESPIRATORY SYSTEM: Unlabored breathing , decreased breath sounds at bases HEART: S1 S2 regular rate and rhythm , ABDOMEN: Soft , no tenderness EXTREMITIES: No edema feet - Labs CBC & Chem 7: 07/12/24 05:37 07/12/24 05:37 Labs: Abnormal Lab Results - Last 24 Hours (Table) 07/12/24 07/12/24 Range/Units 05:37 05:37 WBC 11.85 H (4.50-10.00) X 10*3/uL RBC 3.17 L (4.40-5.60) X 10*6/uL Hgb 10.3 L (13.0-17.0) g/dL Hct 30.8 L (39.6-50.0) % MCV 97.2 H (80.0-97.0) FL MCH 32.5 H (27.0-32.0) pg Immature Gran # 0.07 H (0.00-0.04) X 10*3/uL Neutrophils # 10.35 H (1.80-7.70) X 10*3/uL Lymphocytes # 0.56 L (0.90-5.00) X 10*3/uL Eosinophils # 0 L (0.04-0.35) X 10*3/uL Potassium 3.1 L (3.5-5.5) mmol/L Glucose 128 H (70-110) mg/dL Calcium 7.9 L (8.7-10.3) mg/dL Total Protein 4.9 L (6.2-8.2) g/dL Albumin 3.2 L (3.8-4.9) g/dL Assessment and Plan (1) Open wound of right hand Current Visit: Yes Status: Acute Code(s): S61.401A - UNSPECIFIED OPEN WOUND OF RIGHT HAND, INITIAL ENCOUNTER SNOMED Code(s): 79761925740486052 (2) Urinary tract infection Current Visit: Yes Status: Acute Priority: Medium Code(s): N39.0 - URINARY TRACT INFECTION, SITE NOT SPECIFIED SNOMED Code(s): 89868558 (3) Sepsis Current Visit: No Status: Acute Code(s): A41.9 - SEPSIS, UNSPECIFIED ORGANISM SNOMED Code(s): 90594001 Plan: 1patient presented to hospital with sepsis in this patient who did have fever elevated white count meeting currently for SIRS source is likely UTI in this patient who did have a history of prostate disorder requiring self- catheterization some suprapubic discomfort concerning for symptomatic UTI likely from enteric gram-negative pathogen. 2patient also have a laceration/wound times to the right hand and wrist area but not definite cellulitis. 3patient is currently on Rocephin 2 g daily continue while waiting for the culture to finalize and monitor clinical course closely Dictation was produced using [employer] dictation software. please excuse any grammatical, word or spelling errors. Time with Patient: Less than 30
[2024-07-12] MEDS: POTASSIUM CHLORIDE ER 20 MEQ TAB.ER PO STA (20:17)
[2024-07-13 08:55] LABS: Basophils # (A) 0.02 X 10*3/uL (0.00-0.10); Basophils % (A) 0.3 %; Eosinophils # (A) 0.06 X 10*3/uL (0.04-0.35); Eosinophils % (A) 0.9 %; HCT 33.7 % (39.6-50.0); HGB 10.8 g/dL (13.0-17.0); Lymphocytes % (A) 10.3 %; MCH 31.4 pg (27.0-32.0); Monocytes # (A) 0.65 X 10*3/uL (0.20-1.00); Monocytes % (A) 9.6 %; NRBC Per 100 WBC 0 X 10*3/uL (0.00-0.01); Neutrophils # (A) 5.35 X 10*3/uL (1.80-7.70); Neutrophils % (A) 78.6 %; Platelet Count 173 X 10*3/uL (140-440); RBC 3.44 X 10*6/uL (4.40-5.60); RDW 13.7 % (11.5-14.5)
[2024-07-13 09:04] LABS: ALT 17 U/L (10-49); AST 33 U/L (14-35); Albumin/Globulin Ratio 1.58 Ratio (1.60-3.17); Alkaline Phosphatase 63 U/L (41-126); BUN/Creat Ratio 16.38 Ratio (12.00-20.00); Blood Urea Nitrogen 13.1 mg/dL (9.0-27.0); Calcium 7.9 mg/dL (8.7-10.3); Carbon Dioxide 25.3 mmol/L (21.6-31.8); Chloride 102 mmol/L (96-109); Globulin 1.9 g/dL (1.6-3.3); Glucose 105 mg/dL (70-110); Potassium 3.5 mmol/L (3.5-5.5); Sodium 136 mmol/L (135-145); Total Bilirubin 0.3 mg/dL (0.3-1.2); Total Protein 4.9 g/dL (6.2-8.2)
--- NOTE | 2024-07-13 12:36 | P.PN ---
Subjective Progress Note Date: 07/13/24 Principal diagnosis: Reason for follow up with sepsis and UTI patient is a 78-year-old male with a past medical history significant for hypertension reflux prostate disorder requiring self-catheterization presenting to the hospital concerning for fever, did have positive UA concerning for symptomatic UTI with sepsis. On today's evaluation that is 07/13/2024,the patient did have a low-grade fever of 100.7 yesterday afternoon temperature of 99.7 this morning patient is breathing comfortably currently on room air still complaining of feeling weak and no energy no chest pain shortness of the cough no abdominal pain or diarrhea. The patient white count normalized to 6.0, creatinine 0.8 urine is growing gram- negative blood culture has been negative so far Objective - Vital Signs Vital signs: Vital Signs Temp 99.7 F H 07/13/24 07:32 Pulse 79 07/13/24 07:32 Resp 16 07/13/24 07:32 BP 128/69 07/13/24 07:32 Pulse Ox 95 07/13/24 07:32 FiO2 Intake & Output 07/12/24 07/13/24 07/13/24 18:59 06:59 18:59 Intake Total 1122 118 Output Total 625 Balance 1122 -625 118 Intake: Intake, IV Titration 300 Amount Sodium Chloride 0.9% 1, 300 000 ml @ 75 mls/hr IV . [id number] [facility] Rx#:[id number] Oral 822 118 Output: Urine 625 Other: Voiding Method Indwelling Catheter Indwelling Catheter Indwelling Catheter # Voids 1 - Exam GENERAL DESCRIPTION: An elderly male lying in bed in no distress RESPIRATORY SYSTEM: Unlabored breathing , decreased breath sounds at bases HEART: S1 S2 regular rate and rhythm , ABDOMEN: Soft , no tenderness EXTREMITIES: No edema feet - Labs CBC & Chem 7: 07/13/24 04:25 07/13/24 04:25 Labs: Abnormal Lab Results - Last 24 Hours (Table) 07/13/24 07/13/24 Range/Units 04:25 04:25 RBC 3.44 L (4.40-5.60) X 10*6/uL Hgb 10.8 L (13.0-17.0) g/dL Hct 33.7 L (39.6-50.0) % MCV 98.0 H (80.0-97.0) FL Lymphocytes # 0.70 L (0.90-5.00) X 10*3/uL Calcium 7.9 L (8.7-10.3) mg/dL Total Protein 4.9 L (6.2-8.2) g/dL Albumin 3.0 L (3.8-4.9) g/dL Albumin/Globulin Ratio 1.58 L (1.60-3.17) Ratio Microbiology - Last 24 Hours (Table) 07/11/24 08:26 Blood Culture - Preliminary Blood 07/11/24 08:44 Urine Culture - Preliminary Urine,Catheterized Gram Neg Bacilli Assessment and Plan (1) Open wound of right hand Current Visit: Yes Status: Acute Code(s): S61.401A - UNSPECIFIED OPEN WOUND OF RIGHT HAND, INITIAL ENCOUNTER SNOMED Code(s): 34521478996638870 (2) Urinary tract infection Current Visit: Yes Status: Acute Priority: Medium Code(s): N39.0 - URINARY TRACT INFECTION, SITE NOT SPECIFIED SNOMED Code(s): 90920951 (3) Sepsis Current Visit: No Status: Acute Code(s): A41.9 - SEPSIS, UNSPECIFIED ORGANISM SNOMED Code(s): 17176328 Plan: 1patient presented to hospital with sepsis in this patient who did have fever elevated white count meeting currently for SIRS source is likely UTI in this patient who did have a history of prostate disorder requiring self- catheterization some suprapubic discomfort concerning for symptomatic UTI likely from enteric gram-negative pathogen. 2patient also have a laceration/wound times to the right hand and wrist area but not definite cellulitis. 3patient did have improvement his fever pattern and white count normalized, urine is currently growing gram-negative patient will be treated with Rocephin 2 g daily while waiting for the culture to finalize and monitor clinical course closely Dictation was produced using [employer] dictation software. please excuse any grammatical, word or spelling errors. Time with Patient: Less than 30
[2024-07-13] MEDS: POTASSIUM CHLORIDE ER 20 MEQ TAB.ER PO STA (17:29)
--- NOTE | 2024-07-13 18:17 | P.PN ---
Subjective Progress Note Date: 07/13/24 HISTORY OF PRESENT ILLNESS: This is a 78-year-old male with a previous medical history significant for hypertension and hypertensive cardiovascular disease, mixed hyperlipidemia, history of macrocytic anemia, history of recurrent urinary tract infection, history of bladder atony with self-catheterization, history of C. difficile colitis, history of enlarged prostate, history of obesity with obstructive sleep apnea, history of vitamin D deficiency, chronic diastolic heart failure, patient presented to the emergency department at [facility] today in the morning after he was sitting on the seated walker and all of a sudden he slid down because his leg could not hold his body, he did not injure himself, however he hit his right hand with the Board and has some skin tears on it patient was seen in the emergency department after his called 911 as the patient was not able to get up and patient was complaining of generalized weakness and fever as well he was seen in the emergency department by Dr. Packer he had laboratory evaluation that did show evidence of leukocytosis as well as urinary tract infection with sepsis, he was started on IV antibiotic in the form of ceftriaxo ne 2 g piggyback every 24 hours, infectious disease consultation was obtained, blood cultures, urine culture, and because of the prior history of C. difficile colitis he was started on vancomycin 125 mg orally 3 times every day prophylactically and he was restarted back on his probiotic as well. Infectious disease consultation was obtained from Dr. Rodarte. 07/12: Patient lying elevated over distress, has been able better today, he complains of dry mouth, he is not getting any IV fluid, will start patient on IV fluid for normal saline 75 cc an hour, monitor the patient symptoms very closely, await the final result of the culture, blood culture urine culture still pending, physical therapy evaluation, likely patient require to go for subacute rehabilitation 07/13: Patient is sitting up in bed in no apparent distress, his feet a lot better today, he did have hypokalemia yesterday was treated with potassium supplement 40 mill equivalent, will repeat another potassium today, repeat labs tomorrow morning, his urine culture showing gram-negative bacilli, the final results still pending, he has been on ceftriaxone 2 g piggyback every 24 hours, significant improvement of the symptoms including SIRS he denies any abdominal pain nausea vomiting or diarrhea, he was placed on vancomycin prophylactically for a prior history of recurrent C. difficile in the past. REVIEW OF SYSTEMS: Constitutional: No documented fever, no chills, no night sweats. No weight change. No weakness, fatigue or lethargy. No daytime sleepiness. EENT: No headache. No blurred vision or double vision, no loss of vision. No loss of Hearing, no ringing in the ears, no dizziness. No nasal drainage or congestion. No epistaxis. No sore throat. Lungs: No shortness of breath, no cough, no sputum production. No wheezing. Reports dyspnea with activity. Cardiovascular: No chest pain, no lower extremity edema. No palpitations. No paroxysmal nocturnal dyspnea. No orthopnea. No lightheadedness or dizziness. No syncopal episodes. Abdominal: Reports abdominal pain. No nausea, vomiting. No diarrhea. No constipation. No bloody or tarry stools reports loss of appetite. Genitourinary: No dysuria, increased frequency, urgency. No urinary retention. Musculoskeletal: No myalgias. No muscle weakness, no gait dysfunction, no frequent falls. No back pain. No neck pain. Integumentary: No wounds, no lesions. No rash or pruritus. No unusual bruising. No change in hair or nails. Neurologic: No aphasia. No facial droop. No change in mentation. No head injury. No headache. No paralysis. No paresthesia. Psychiatric: No depression. No anxiety. No mood swings. Endocrine: No abnormal blood sugars. No weight change. PHYSICAL EXAMINATION: General: This is 78-year-old male laying down in bed appears to be in minimal distress. Generally weak. HEENT: Head is atraumatic, normocephalic, pupils were equal round reactive to light and recommendation, extraocular muscle movement were intact, sclera nonicteric, conjunctivae were pale, mucous membranes of the mouth are somewhat dry. Neck: Supple, no JVP, normal carotid upstroke bilaterally, no lymphadenopathy. Chest: Decreased breath sounds at the bases, few rhonchi, no expiratory wheezes, no chest wall tenderness, no intercostal retractions. Heart: First heart sound is normal, second heart sounds normal there is systolic ejection murmur 2/6 systolic in the left sternal border. Abdomen: Soft, nontender, nondistended, positive bowel sounds. Extremities: There is no edema no calf tenderness DP +2 bilaterally. Neurologic examination: Patient is awake alert and oriented x3, cranial nerves II-12 appear grossly intact, muscle power were 4 out of 5 in upper extremities and 2 out of 5 in bilateral lower extremities, deep tendon reflexes normal bilaterally. ASSESSMENT AND PLAN: 1. Complicated urinary tract infection with sepsis due to gram-negative bacilli. Urine culture, blood culture, continue ceftriaxone 2 g piggyback every 24 hours, monitor the patient symptoms very closely, continue IV fluid in the form of normal saline at 75 cc an hour. 2. Medical debility with generalized weakness and severe weakness of both lower extremities, patient is not able to hold his body, physical therapy evaluation social work consultation for possible subacute rehabilitation. 3. Recurrent C. difficile colitis. Patient was treated multiple times for C. difficile, I will start the patient on vancomycin 125 mg orally 3 times every day while he is on antibiotic, infectious disease consultation, continue with probiotics on a daily basis. 4. Hypertension and hypertensive cardiovascular disease. Continue patient on losartan 25 mg orally once every day, monitor the patient blood pressure very closely. 5. Mixed hyperlipidemia. Patient is not taking any medication at this point in time. 6. Enlarged prostate. With bladder atony and self-catheterization currently has a Garcia catheter in place. Continue with doxazosin 8 mg at bedtime. 7. Spondylosis of the lumbar spine. Continue baclofen 5 mg at bedtime. 8. History of recurrent kidney stones. Stable at this time. 9. DVT prophylaxis. Lovenox 40 mg subcutaneous every 24 hours. 10. GI prophylaxis. Continue patient on Protonix 40 mg once every day. 11. Obesity with obstructive sleep apnea. Continue patient on CPAP. Continue modafinil 300 mg orally once every day. 12. Hypokalemia status post replacement. Objective - Vital Signs Vital signs: Vital Signs Temp 98.1 F 07/13/24 14:00 Pulse 71 07/13/24 14:00 Resp 17 07/13/24 14:00 BP 102/60 07/13/24 14:57 Pulse Ox 96 07/13/24 14:00 FiO2 Intake & Output 07/12/24 07/13/24 07/13/24 18:59 06:59 18:59 Intake Total 1122 236 Output Total 625 Balance 1122 -625 236 Intake: Intake, IV Titration 300 Amount Sodium Chloride 0.9% 1, 300 000 ml @ 75 mls/hr IV . [id number] [facility] Rx#:[id number] Oral 822 236 Output: Urine 625 Other: Voiding Method Indwelling Catheter Indwelling Catheter Indwelling Catheter # Voids 1 - Labs CBC & Chem 7: 07/13/24 04:25 07/13/24 04:25 Labs: Abnormal Lab Results - Last 24 Hours (Table) 07/13/24 07/13/24 Range/Units 04:25 04:25 RBC 3.44 L (4.40-5.60) X 10*6/uL Hgb 10.8 L (13.0-17.0) g/dL Hct 33.7 L (39.6-50.0) % MCV 98.0 H (80.0-97.0) [place] Lymphocytes # 0.70 L (0.90-5.00) X 10*3/uL Calcium 7.9 L (8.7-10.3) mg/dL Total Protein 4.9 L (6.2-8.2) g/dL Albumin 3.0 L (3.8-4.9) g/dL Albumin/Globulin Ratio 1.58 L (1.60-3.17) Ratio Microbiology - Last 24 Hours (Table) 07/11/24 08:26 Blood Culture - Preliminary Blood 07/11/24 08:44 Urine Culture - Preliminary Urine,Catheterized Gram Neg Bacilli
[2024-07-14 09:10] LABS: Blood Urea Nitrogen 10.5 mg/dL (9.0-27.0); Calcium 7.9 mg/dL (8.7-10.3); Carbon Dioxide 24.6 mmol/L (21.6-31.8); Chloride 105 mmol/L (96-109); Glucose 105 mg/dL (70-110); Potassium 4.2 mmol/L (3.5-5.5); Sodium 137 mmol/L (135-145)
[2024-07-14] MEDS: NYSTATIN 100,000 UNIT/GM POWD 15 GM TOPICAL SCH (11:27)
--- NOTE | 2024-07-14 12:24 | P.PN ---
Subjective Progress Note Date: 07/14/24 Principal diagnosis: Reason for follow up with sepsis and UTI patient is a 78-year-old male with a past medical history significant for hypertension reflux prostate disorder requiring self-catheterization presenting to the hospital concerning for fever, did have positive UA concerning for symptomatic UTI with sepsis. On today's evaluation that is 07/14/2024,the patient remains to be afebrile, patient is on room air not requiring supplemental oxygen and denies any s hortness of breath no chest pain or cough.Patient denies having any nausea or vomiting, no abdominal pain and no diarrhea has been reported. Patient did have a creatinine 0.6 white count 6.80 as of yesterday urine is growing E. coli that is sensitive to ceftriaxone Objective - Vital Signs Vital signs: Vital Signs Temp 98.0 F 07/14/24 07:44 Pulse 71 07/14/24 07:44 Resp 17 07/14/24 07:44 BP 112/59 07/14/24 07:44 Pulse Ox 96 07/14/24 07:44 FiO2 Intake & Output 07/13/24 07/14/24 07/14/24 18:59 06:59 18:59 Intake Total 1204 222 Output Total 525 Balance 1204 -525 222 Intake: Intake, IV Titration 850 Amount Sodium Chloride 0.9% 1, 800 000 ml @ 75 mls/hr IV . [id number] [facility] Rx#:[id number] cefTRIAXone 2 gm In 50 Sodium Chloride 0.9% 50 ml @ 100 mls/hr IVPB Q24HR [facility] Rx#:[id number] Oral 354 222 Output: Urine 525 Other: Voiding Method Indwelling Catheter Indwelling Catheter Indwelling Catheter - Exam GENERAL DESCRIPTION: An elderly male lying in bed in no distress RESPIRATORY SYSTEM: Unlabored breathing , decreased breath sounds at bases HEART: S1 S2 regular rate and rhythm , ABDOMEN: Soft , no tenderness EXTREMITIES: No edema feet - Labs CBC & Chem 7: 07/13/24 04:25 07/14/24 05:30 Labs: Abnormal Lab Results - Last 24 Hours (Table) 07/14/24 Range/Units 05:30 Calcium 7.9 L (8.7-10.3) mg/dL Microbiology - Last 24 Hours (Table) 07/11/24 08:44 Urine Culture - Final Urine,Catheterized Escherichia coli 07/11/24 08:26 Blood Culture - Preliminary Blood Assessment and Plan (1) Open wound of right hand Current Visit: Yes Status: Acute Code(s): S61.401A - UNSPECIFIED OPEN WOUND OF RIGHT HAND, INITIAL ENCOUNTER SNOMED Code(s): 33314507654853976 (2) Urinary tract infection Current Visit: Yes Status: Acute Priority: Medium Code(s): N39.0 - URINARY TRACT INFECTION, SITE NOT SPECIFIED SNOMED Code(s): 29118835 (3) Sepsis Current Visit: No Status: Acute Code(s): A41.9 - SEPSIS, UNSPECIFIED ORGANISM SNOMED Code(s): 72774144 Plan: 1patient presented to hospital with sepsis in this patient who did have fever elevated white count meeting currently for SIRS source is likely UTI in this patient who did have a history of prostate disorder requiring self- catheterization some suprapubic discomfort concerning for symptomatic UTI likely from enteric gram-negative pathogen. 2patient also have a laceration/wound times to the right hand and wrist area but not definite cellulitis. 3patient did have resolution of his fever white count has normalized blood culture negative urine is growing E. coli sensitive to ceftriaxone 4patient will be treated with a IV Rocephin while inpatient finishing therapy with oral Ceftin x 7 days on discharge Dictation was produced using [employer] dictation software. please excuse any grammatical, word or spelling errors. Time with Patient: Less than 30
--- NOTE | 2024-07-14 13:05 | P.DS ---
Providers Date of admission: 07/12/24 08:56 Expected date of discharge: 07/14/24 Attending physician: Tamara Jacobo Consults: 07/11/24 09:19 Consult Physician Urgent Consulting Provider: Nick Rodarte Consult Reason/Comments: Urinary tract infection, history C. difficile Do you want consulting provider notified?: Yes Primary care physician: Tamara Jacobo Hospital Course: HISTORY OF PRESENT ILLNESS: This is a 78-year-old male with a previous medical history significant for hypertension and hypertensive cardiovascular disease, mixed hyperlipidemia, history of macrocytic anemia, history of recurrent urinary tract infection, history of bladder atony with self-catheterization, history of C. difficile colitis, history of enlarged prostate, history of obesity with obstructive sleep apnea, history of vitamin D deficiency, chronic diastolic heart failure, patient presented to the emergency department at [facility] today in the morning after he was sitting on the seated walker and all of a sudden he slid down because his leg could not hold his body, he did not injure himself, however he hit his right hand with the Board and has some skin tears on it patient was seen in the emergency department after his called 911 as the patient was not able to get up and patient was complaining of generalized weakness and fever as well he was seen in the emergency department by Dr. Packer he had laboratory evaluation that did show evidence of leukocytosis as well as urinary tract infection with sepsis, he was started on IV antibiotic in the form of ceftriaxone 2 g piggyback every 24 hours, infectious disease consultation was obtained, blood cultures, urine culture, and because of the prior history of C. difficile colitis he was started on vancomycin 125 mg orally 3 times every day prophylactically and he was restarted back on his probiotic as well. Infectious disease consultation was obtained from Dr. Rodarte. 07/12: Patient lying elevated over distress, has been able better today, he complains of dry mouth, he is not getting any IV fluid, will start patient on IV fluid for normal saline 75 cc an hour, monitor the patient symptoms very closely, await the final result of the culture, blood culture urine culture still pending, physical therapy evaluation, likely patient require to go for subacute rehabilitation 07/13: Patient is sitting up in bed in no apparent distress, his feet a lot better today, he did have hypokalemia yesterday was treated with potassium supplement 40 mill equivalent, will repeat another potassium today, repeat labs tomorrow morning, his urine culture showing gram-negative bacilli, the final results still pending, he has been on ceftriaxone 2 g piggyback every 24 hours, significant improvement of the symptoms including SIRS he denies any abdominal pain nausea vomiting or diarrhea, he was placed on vancomycin prophylactically for a prior history of recurrent C. difficile in the past. 07/14: Patient sitting up in bed in no apparent distress, he continues to have a Garcia catheter in place, his urine culture showed evidence of E. coli that is sensitive to ceftriaxone, I will switch the patient to Ceftin 500 mg orally twice every day for the next 7 days, patient can be discharged to [facility] later on today. Discharge diagnoses: 1. Complicated urinary tract infection with sepsis due to E.Coli with SIRS 2. Medical debility with generalized weakness and severe weakness of both lower extremities. 3. Recurrent C. difficile colitis. 4. Hypertension and hypertensive cardiovascular disease. 5. Mixed hyperlipidemia. 6. Enlarged prostate. 7. Spondylosis of the lumbar spine. 8. History of recurrent kidney stones. 9. Obesity with obstructive sleep apnea. 10. Hypokalemia status post replacement. Patient Condition at Discharge: Stable Plan - Discharge Summary Discharge Rx Participant: No New Discharge Prescriptions: No Action Multivitamins, Thera [Multivitamin (formulary)] 1 tab PO DAILY Aspirin 325 mg PO DAILY Acetaminophen Tab [Tylenol] 650 mg PO Q6HR PRN tab PRN Reason: Mild Pain Or Fever > 100.5 Doxazosin Mesylate 8 mg PO HS Baclofen 5 mg PO HS modafiniL [Provigil] 300 mg PO DAILY Losartan [Cozaar] 25 mg PO DAILY Cholecalciferol [Vitamin D3 (25 Mcg = 1000 Iu)] 50 mcg PO DAILY Torsemide [Demadex] 40 mg PO DAILY Potassium Chloride ER [K-Dur 20] 20 meq PO BID L.acidoph,Paracasei, B.lactis [Probiotic] 1 cap PO DAILY Phentermine HCl [Adipex-P] 37.5 mg PO DAILY Discharge Medication List Aspirin 325 mg PO DAILY 10/28/13 [History] Multivitamins, Thera [Multivitamin (formulary)] 1 tab PO DAILY 10/28/13 [History] Cholecalciferol [Vitamin D3 (25 Mcg = 1000 Iu)] 50 mcg PO DAILY 05/29/21 [History] Acetaminophen Tab [Tylenol] 650 mg PO Q6HR PRN tab 11/25/23 [Rx] Baclofen 5 mg PO HS 12/29/23 [History] Doxazosin Mesylate 8 mg PO HS 12/29/23 [History] Potassium Chloride ER [K-Dur 20] 20 meq PO BID 12/29/23 [History] Torsemide [Demadex] 40 mg PO DAILY 12/29/23 [History] modafiniL [Provigil] 300 mg PO DAILY 12/29/23 [History] L.acidoph,Paracasei, B.lactis [Probiotic] 1 cap PO DAILY 07/11/24 [History] Losartan [Cozaar] 25 mg PO DAILY 07/11/24 [History] Phentermine HCl [Adipex-P] 37.5 mg PO DAILY 07/11/24 [History] Follow up Appointment(s)/Referral(s): Tamara Jacobo MD [Primary Care Provider] - 1-2 days
[2024-07-14 14:24] VITALS: BP 119/63; PULSE 76; RESP 16; TEMP 98.4
== END 2024-07-14 15:53 | DRG 872 ==
LOC: EC 07:36 → 6NMEDSUR 09:27 → OBSVTOIN 07-12 08:56
PROVIDERS: ADMIT Internal Medicine; ATTEND Internal Medicine
DX: A41.51 Sepsis due to Escherichia coli [E. coli] (principal); A04.71 Enterocolitis due to Clostridium difficile, recurrent; I11.0 Hypertensive heart disease with heart failure; E66.9 Obesity, unspecified; I50.32 Chronic diastolic (congestive) heart failure; N39.0 Urinary tract infection, site not specified; Z68.41 Body mass index [BMI] 40.0-44.9, adult; E78.2 Mixed hyperlipidemia; E87.6 Hypokalemia; G47.33 Obstructive sleep apnea (adult) (pediatric); I87.8 Other specified disorders of veins; M47.816 Spondylosis without myelopathy or radiculopathy, lumbar region; N31.2 Flaccid neuropathic bladder, not elsewhere classified; N40.0 Benign prostatic hyperplasia without lower urinary tract symptoms; Z79.82 Long term (current) use of aspirin; Z79.899 Other long term (current) drug therapy; Z82.49 Family history of ischemic heart disease and other diseases of the circulatory system; Z86.19 Personal history of other infectious and parasitic diseases; Z87.440 Personal history of urinary (tract) infections; Z87.442 Personal history of urinary calculi; Z87.891 Personal history of nicotine dependence; Z98.42 Cataract extraction status, left eye; Z98.41 Cataract extraction status, right eye; Z96.1 Presence of intraocular lens; Z96.653 Presence of artificial knee joint, bilateral
CPT/HCPCS: 36415; 71046; 80048; 80053; 81001; 83605; 85025; 85610; 85730; 87040; 87077; 87086; 87186; 93005; 96361; 96374; 99285

== ENCOUNTER → 2024-08-22 | Outpatient (CLI) | payer MEDICARE ==
--- NOTE | 2024-08-22 11:01 | US ---
EXAMINATION TYPE: US kidneys/renal and bladder DATE OF EXAM: 08/22/2024 COMPARISON: Multiple CT abdomen and pelvis with most recent 11/16/2023 CLINICAL INDICATION: Male, 78 years old with history of N13.2 HYDRONEPHROSIS; assess for ride sided h ydro, patient unsure why, h/o renal stones in the past, no pain now TECHNIQUE: Grayscale imaging of the bilateral kidneys and urinary bladder: FINDINGS: EXAM MEASUREMENTS: Right Kidney: 10.7 x 4.3 x 6.2 cm Left Kidney: 11.2 x 3.9 x 6.2 c Right Kidney: No hydronephrosis or masses seen Left Kidney: No hydronephrosis or masses seen Bladder: possible left sided diverticulum seen, wnl There is no evidence for hydronephrosis at this point in time. No nephrolithiasis is seen. No elena s are identified. Cortical medullary differentiation is maintained bilaterally. The urinary bladder is anechoic and underdistended which limits evaluation. Possible left-sided diverticulum. IMPRESSION: 1. No hydronephrosis or nephrolithiasis. 2. 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 [facility], , 08/22/2024 10:58 AM
== END | disposition home or self-care (01) ==
LOC: RADUSWWP 10:09
PROVIDERS: ATTEND Urology
DX: N13.2 Hydronephrosis with renal and ureteral calculous obstruction (principal)
CPT/HCPCS: 76770

== ENCOUNTER 2024-12-19 08:33 | Observation (INO) | payer MEDICARE ==
--- NOTE | 2024-12-19 08:57 | ED ---
General Adult HPI - General Chief complaint: Weakness Stated complaint: Weakness Time Seen by Provider: 12/19/24 08:44 Source: patient Mode of arrival: EMS Limitations: no limitations - History of Present Illness Initial comments: Dictation was produced using [employer] dictation software. please excuse any grammatical, word or spelling errors. Chief Complaint: 79-year-old male with weakness History of Present Illness: Patient 79-year-old male presents emergency department weakness. Patient allegedly slid out of his recliner. Denies any trauma. Patient states that he feels within his usual baseline. It is does not take any anticoagulation medications. Denies any head trauma or neck injury. Patient states he did not sleep well last night and slid out of his chair. called EMS for lift assist. After being evaluated by fire department he was convinced to come to the ER for evaluation. Patient has no pain complaints. Denies any numbness tingling paresthesias to the extremities. States that he did not sleep till 2 AM last night because his kept him up. The ROS documented in this emergency department record has been reviewed and confirmed by me. Those systems with pertinent positive or negative responses have been documented in the HPI. All other systems are other negative and/or noncontributory. - Related Data Home Medications Medication Instructions Recorded Confirmed Aspirin 325 mg PO DAILY 10/28/13 07/11/24 Multivitamins, Thera [Multivitamin 1 tab PO DAILY 10/28/13 07/11/24 (formulary)] Cholecalciferol [Vitamin D3 (25 50 mcg PO DAILY 05/29/21 07/11/24 Mcg = 1000 Iu)] Baclofen 5 mg PO HS 12/29/23 07/11/24 Doxazosin Mesylate 8 mg PO HS 12/29/23 07/11/24 Potassium Chloride ER [K-Dur 20] 20 meq PO BID 12/29/23 07/11/24 Torsemide [Demadex] 40 mg PO DAILY 12/29/23 07/11/24 L.acidoph,Paracasei, B.lactis 1 cap PO DAILY 07/11/24 07/11/24 [Probiotic] Losartan [Cozaar] 25 mg PO DAILY 07/11/24 07/11/24 Previous Rx's Medication Instructions Recorded Acetaminophen Tab [Tylenol] 650 mg PO Q6HR PRN tab 11/25/23 Nystatin 100,000 Unit/gm Powd 1 applic TOPICAL BID each 07/14/24 [Mycostatin Powder] Phentermine HCl [Adipex-P] 37.5 mg PO DAILY #3 tab 07/14/24 cefuroxime axetiL [Ceftin] 500 mg PO BID #14 tab 07/14/24 modafiniL [Provigil] 300 mg PO DAILY #3 tab 07/14/24 Allergies Allergy/AdvReac Type Severity Reaction Status Date / Time No Known Allergies Allergy Verified 12/19/24 10:21 Review of Systems ROS Statement: Those systems with pertinent positive or pertinent negative responses have been documented in the HPI. ROS Other: All systems not noted in ROS Statement are negative. Past Medical History Past Medical History: Eye Disorder, GERD/Reflux, Hypertension, Osteoarthritis (OA), Prostate Disorder, Renal Disease, Skin Disorder, Sleep Apnea/CPAP/BIPAP Additional Past Medical History / Comment(s): PRE-CA SKIN LESIONS; BACK PAIN; HX RT RENAL CALCULUS, cellulitis of the lower legs with chronic venous stasis,benign prostatic hypertrophy, obstructive sleep apnea no CPAP, chronic back pain secondary to degenerative disc disease,macular degeneration, circumcision has catheter bag History of Any Multi-Drug Resistant Organisms: None Reported, MRSA Date of last positivie culture/infection: 2014 MDRO Source:: finger Past Surgical History: Joint Replacement, Orthopedic Surgery, Prostate Surgery Additional Past Surgical History / Comment(s): 06/30/18 CYSTOSCOPY REMOVAL OF BLADDER CALCULI AND W/ LT URETERAL STENT INSERTION,LT TOTAL KNEE; RT KNEE MAKOPLASTY; ABD LIPOMA REMOVED; RT RENAL CALCULUS LITHOTRIPSY, RT URETERAL STENT, TURP; bilateral cataract removal with lens implants,circumcision Past Anesthesia/Blood Transfusion Reactions: No Reported Reaction Past Psychological History: No Psychological Hx Reported Smoking Status: Former smoker - Past Family History Father Family Medical History: Cancer Additional Family Medical History / Comment(s): Grandfather had heart attack, father at 67. Colon cancer- father. Mother Family Medical History: Congestive Heart Failure (CHF) Brother(s) Family Medical History: CVA/TIA Sister(s) Family Medical History: Unable to Obtain General Exam - General Exam Comments Initial Comments: PHYSICAL EXAM: General Impression: Alert and oriented x3, not in acute distress, somnolent HEENT: Normocephalic atraumatic, extra-ocular movements intact, pupils equal and reactive to light bilaterally, mucous membranes moist. Cardiovascular: Heart regular rate and rhythm Chest: Able to complete full sentences, no retractions, no tachypnea Abdomen: abdomen soft, non-tender, non-distended, no organomegaly Musculoskeletal: Pulses present and equal in all extremities, no peripheral edema Motor: no focal deficits noted Neurological: CN II-XII grossly intact, no focal motor or sensory deficits noted Skin: Intact with no visualized rashes Psych: Normal affect and mood Limitations: no limitations Course Vital Signs 12/19/24 12/19/24 12/19/24 08:38 08:46 10:03 Temperature 98.5 F 98.5 F Pulse Rate 86 82 81 Respiratory 16 16 18 Rate Blood Pressure 107/48 107/48 105/50 O2 Sat by Pulse 94 L 97 96 Oximetry Medical Decision Making - Medical Decision Making Was pt. sent in by a medical professional or institution (, PA, SCANNING MANAGER, urgent care, hospital, or retirement...) When possible be specific @ -No Did you speak to anyone other than the patient for history (EMS, parent, family, police, friend...)? What history was obtained from this source @ -No Did you review nursing and triage notes (agree or disagree)? Why? @ -I reviewed and agree with nursing and triage notes Were old charts reviewed (outside hosp., previous admission, EMS record, old EKG, old radiological studies, urgent care reports/EKG's, retirement records)? Report findings @ -No old charts were reviewed Differential Diagnosis (chest pain, altered mental status, abdominal pain women, abdominal pain men, vaginal bleeding, musculoskeletal, weakness, fever, dyspnea, syncope, headache, dizziness, GI bleed, back pain, seizure, CVA, palpatations, mental health)? @ -Differential Weakness: Hypoglycemia, shock, sepsis, hyponatremia, anemia, infection, OR, ETOH, adverse medicine reaction, overdose, stroke, this is not meant to be an all-inclusive list. EKG interpreted by me (3pts min.). @ -My EKG interpretation: Ventricular rate 84, sinus rhythm, AZ 181, QRS 106, QTc 436. No AZ prolongation, no QTC prolongation, no ST or T-wave changes noted. Overall, this EKG is unremarkable X-rays interpreted by me (1pt min.). @ -Chest x-ray is nonacute CT interpreted by me (1pt min.). @ -Brain CT shows no acute processes U/S interpreted by me (1pt. min.). @ -None done What testing was considered but not performed or refused? (CT, X-rays, U/S, labs)? Why? @ -None What meds were considered but not given or refused? Why? @ -None Was smoking cessation discussed for >3mins.? @ -No Were there social determinants of health that impacted care today? How? (Homelessness, low income, unemployed, alcoholism, drug addiction, transportation, low edu. Level, literacy, decrease access to med. care, usp, rehab)? @ -No Was there de-escalation of care discussed even if they declined (Discuss DNR or withdrawal of care, Hospice)? DNR status @ -No What co-morbidities impacted this encounter? (DM, HTN, Smoking, COPD, CAD, Cancer, CVA, ARF, Chemo, Hep., AIDS, mental health diagnosis, sleep apnea, morbid obesity)? @ -None Was patient admitted / discharged? Hospital course, mention meds given and route, prescriptions, significant lab abnormalities, going to OR and other pertinent info. @ -79-year-old male presents with weakness he slid out of his recliner. Denies any trauma. Vital signs stable. Patient does not take anticoagulation medications. Laboratory evaluation obtained leukocytosis 13. Sodium 131. Troponin 0.066 UTI positive. Given antibiotics. Elevate troponin likely secondary to acute infectious process. Will be admitted. Case discussed with hospitalist for admission serial troponins ordered Did you discuss the management of the patient with other professionals (professionals i.e. , PA, SCANNING MANAGER, lab, RT, psych nurse, social media strategist, field sales specialist, teacher, president and chief executive officer, child support case officer)? Give summary @ -No Was critical care preformed (if so, how long)? @ -No Undiagnosed new problem with uncertain prognosis? @ -No Drug Therapy requiring intensive monitoring for toxicity (Heparin, Nitro, Insulin, Cardizem)? @ -No Were any procedures done? @ -No Diagnosis/symptom? Acute, or Chronic, or Acute on Chronic? Uncomplicated (without systemic symptoms) or Complicated (systemic symptoms)? @ -UTI complicated by weakness and elevated troponin Side effects of treatment? @ -No Exacerbation, Progression, or Severe Exacerbation? @ -No Poses a threat to life or bodily function? How? (Chest pain, USA, OR, pneumonia, PE, COPD, DKA, ARF, appy, cholecystitis, CVA, Diverticulitis, Homicidal, Suicidal, threat to staff... and all critical care pts) @ -yes - Lab Data Result diagrams: 12/19/24 09:04 12/19/24 09:04 Lab Results 12/19/24 12/19/24 12/19/24 Range/Units 09:04 09:04 09:04 WBC 13.41 H (4.50-10.00) 10*3/uL RBC 3.33 L (4.40-5.60) 10*6/uL Hgb 11.0 L (13.0-17.0) g/dL Hct 31.8 L (39.6-50.0) % MCV 95.5 (80.0-97.0) fL MCH 33.0 H (27.0-32.0) pg MCHC 34.6 (32.0-37.0) g/dL Plt Count 169 (140-440) 10*3/uL MPV 9.9 (9.5-12.2) fL Immature Gran % (Auto) 0.4 % Neutrophils % 95.0 % Lymphocytes % 1.7 % Monocytes % 2.6 % Eosinophils % 0.0 % Basophils % 0.3 % Immature Gran # 0.06 H (0.00-0.04) 10*3/uL Neutrophils # 12.73 H (1.80-7.70) 10*3/uL Lymphocytes # 0.23 L (0.90-5.00) 10*3/uL Monocytes # 0.35 (0.20-1.00) 10*3/uL Eosinophils # 0.00 L (0.04-0.35) 10*3/uL Basophils # 0.04 (0.00-0.10) 10*3/uL PT 11.3 (10.0-12.5) sec INR 1.0 (<1.2) APTT 23.1 (22.0-30.0) sec Sodium 131 L (137-145) mmol/L Potassium 3.4 L (3.5-5.1) mmol/L Chloride 97 L (98-107) mmol/L Carbon Dioxide 24 (22-30) mmol/L Anion Gap 10 mmol/L BUN 19 (9-20) mg/dL Creatinine 1.19 (0.66-1.25) mg/dL Est GFR (CKD-EPI)AfAm 68 (>60 ml/min/1.73 sqM) Est GFR (CKD-EPI)NonAf 59 (>60 ml/min/1.73 sqM) Glucose 141 H (74-99) mg/dL Calcium 8.7 (8.4-10.2) mg/dL Total Bilirubin 0.8 (0.2-1.3) mg/dL AST 36 (17-59) U/L ALT 17 (4-49) U/L Alkaline Phosphatase 72 (38-126) U/L Ammonia (<30) umol/L Troponin I (0.000-0.034) ng/mL Total Protein 5.7 L (6.3-8.2) g/dL Albumin 3.6 (3.5-5.0) g/dL Urine Color Urine Appearance (Clear) Urine pH (5.0-8.0) Ur Specific [place] (1.001-1.035) Urine Protein (Negative) Urine Glucose (UA) (Negative) Urine Ketones (Negative) Urine Blood (Negative) Urine Nitrite (Negative) Urine Bilirubin (Negative) Urine Urobilinogen (<2.0) mg/dL Ur Leukocyte Esterase (Negative) Urine RBC (0-5) /hpf Urine WBC (0-5) /hpf Urine WBC Clumps (None) /hpf Ur Squamous Epith Cells (0-4) /hpf Urine Bacteria (None) /hpf Hyaline Casts (0-2) /lpf Urine Mucus (None) /hpf 12/19/24 12/19/24 12/19/24 Range/Units 09:04 09:04 09:09 WBC (4.50-10.00) 10*3/uL RBC (4.40-5.60) 10*6/uL Hgb (13.0-17.0) g/dL Hct (39.6-50.0) % MCV (80.0-97.0) fL MCH (27.0-32.0) pg MCHC (32.0-37.0) g/dL Plt Count (140-440) 10*3/uL MPV (9.5-12.2) fL Immature Gran % (Auto) % Neutrophils % % Lymphocytes % % Monocytes % % Eosinophils % % Basophils % % Immature Gran # (0.00-0.04) 10*3/uL Neutrophils # (1.80-7.70) 10*3/uL Lymphocytes # (0.90-5.00) 10*3/uL Monocytes # (0.20-1.00) 10*3/uL Eosinophils # (0.04-0.35) 10*3/uL Basophils # (0.00-0.10) 10*3/uL PT (10.0-12.5) sec INR (<1.2) APTT (22.0-30.0) sec Sodium (137-145) mmol/L Potassium (3.5-5.1) mmol/L Chloride (98-107) mmol/L Carbon Dioxide (22-30) mmol/L Anion Gap mmol/L BUN (9-20) mg/dL Creatinine (0.66-1.25) mg/dL Est GFR (CKD-EPI)AfAm (>60 ml/min/1.73 sqM) Est GFR (CKD-EPI)NonAf (>60 ml/min/1.73 sqM) Glucose (74-99) mg/dL Calcium (8.4-10.2) mg/dL Total Bilirubin (0.2-1.3) mg/dL AST (17-59) U/L ALT (4-49) U/L Alkaline Phosphatase (38-126) U/L Ammonia 32 H (<30) umol/L Troponin I 0.066 H* (0.000-0.034) ng/mL Total Protein (6.3-8.2) g/dL Albumin (3.5-5.0) g/dL Urine Color Yellow Urine Appearance Cloudy (Clear) Urine pH 6.5 (5.0-8.0) Ur Specific [place] 1.011 (1.001-1.035) Urine Protein 1+ H (Negative) Urine Glucose (UA) Negative (Negative) Urine Ketones Negative (Negative) Urine Blood Small H (Negative) Urine Nitrite Negative (Negative) Urine Bilirubin Negative (Negative) Urine Urobilinogen <2.0 (<2.0) mg/dL Ur Leukocyte Esterase Large H (Negative) Urine RBC 6 H (0-5) /hpf Urine WBC >182 H (0-5) /hpf Urine WBC Clumps Many H (None) /hpf Ur Squamous Epith Cells <1 (0-4) /hpf Urine Bacteria Many H (None) /hpf Hyaline Casts 2 (0-2) /lpf Urine Mucus Rare H (None) /hpf Disposition Clinical Impression: UTI (urinary tract infection) Disposition: ADMITTED IP TO THIS HOSP Condition: Fair Referrals: Tamara Jacobo MD [Primary Care Provider] - 1-2 days Decision Time: 10:27
[2024-12-19 09:09] LABS: Basophils # (A) 0.04 10*3/uL (0.00-0.10); Basophils % (A) 0.3 %; Eosinophils # (A) 0.00 10*3/uL (0.04-0.35); Eosinophils % (A) 0.0 %; HCT 31.8 % (39.6-50.0); HGB 11.0 g/dL (13.0-17.0); Lymphocytes # (A) 0.23 10*3/uL (0.90-5.00); Lymphocytes % (A) 1.7 %; MCH 33.0 pg (27.0-32.0); MCHC 34.6 g/dL (32.0-37.0); MCV 95.5 fL (80.0-97.0); Monocytes # (A) 0.35 10*3/uL (0.20-1.00); Monocytes % (A) 2.6 %; Neutrophils # (A) 12.73 10*3/uL (1.80-7.70); Neutrophils % (A) 95.0 %; Platelet Count 169 10*3/uL (140-440); RBC 3.33 10*6/uL (4.40-5.60); RDW 13.7 % (11.5-14.5); WBC 13.41 10*3/uL (4.50-10.00)
[2024-12-19 09:23] LABS: INR 1.0 (<1.2); Partial Thromboplastin Time 23.1 sec (22.0-30.0); Prothrombin Time 11.3 sec (10.0-12.5)
[2024-12-19 09:26] LABS: Bacteria,Urine Many /hpf; Bilirubin,Urine Negative (Negative); Blood,Urine Small (Negative); Color,Urine Yellow; Glucose,Urine (UA) Negative (Negative); Hyaline Casts,Urine 2 /lpf (0-2); Ketones,Urine Negative (Negative); Leukocyte Esterase,Urine Large (Negative); Mucus,Urine Rare /hpf; Nitrite,Urine Negative (Negative); PH, Urine 6.5 (5.0-8.0); Protein,Urine 1+ (Negative); RBC,Urine 6 /hpf (0-5); Specific Gravity,Urine 1.011 (1.001-1.035); Squamous Epithelial Cell,Urine <1 /hpf (0-4); Urobilinogen,Urine <2.0 mg/dL (<2.0); WBC,Urine >182 /hpf (0-5)
[2024-12-19 09:36] LABS: ALT 17 U/L (4-49); AST 36 U/L (17-59); African American GFR (CKD) 68 (>60 ml/min/1.73 sqM); Albumin 3.6 g/dL (3.5-5.0); Alkaline Phosphatase 72 U/L (38-126); Anion Gap 10 mmol/L; Blood Urea Nitrogen 19 mg/dL (9-20); Calcium 8.7 mg/dL (8.4-10.2); Carbon Dioxide 24 mmol/L (22-30); Chloride 97 mmol/L (98-107); Glucose 141 mg/dL (74-99); Non-African American GFR(CKD) 59 (>60 ml/min/1.73 sqM); Potassium 3.4 mmol/L (3.5-5.1); Sodium 131 mmol/L (137-145); Total Protein 5.7 g/dL (6.3-8.2)
--- NOTE | 2024-12-19 09:54 | XR ---
EXAMINATION TYPE: XR chest 2V DATE OF EXAM: 12/19/2024 9:24 AM COMPARISON: None. CLINICAL INDICATION: Male, 79 years old with history of weakness, fall: Shortness of breath TECHNIQUE: XR chest 2V views of the chest are obtained. FINDINGS: Scattered senescent parenchymal changes noted. Hyperinflation compatible with COPD. No evidence for infiltrate. No evidence for atelectasis. Heart size is stable. Mediastinal structures are stable and grossly unremarkable. No evidence for hilar prominence. Degenerative changes dorsal spine. IMPRESSION: 1. No evidence for acute pulmonary disease. [facility], , 12/19/2024 9:52 AM
--- NOTE | 2024-12-19 09:58 | CT ---
EXAMINATION TYPE: CT brain wo con DATE OF EXAM: 12/19/2024 COMPARISON: None CLINICAL INDICATION: Male, 79 years old with history of weakness, fall; PHH, weakness, fall TECHNIQUE: CT scan of the head is performed without contrast. CT DLP: 1127.[address] CTDI: mGy Automated exposure control for dose reduction was used. FINDINGS: There is no acute intracranial hemorrhage or midline shift identified. There is diffuse v entricular and sulcal prominence consistent with diffuse age-related cerebral atrophy. There is low- attenuation in the periventricular white matter consistent with chronic small vessel ischemic change. The globes are intact and the visualized sinuses are clear. IMPRESSION: No acute intracranial hemorrhage or midline shift. There is diffuse age-related cerebra l atrophy and chronic small vessel ischemic change noted. [facility], , 12/19/2024 9:56 AM
[2024-12-19] MEDS: cefTRIAXone IN SWFI 1,000 MG/10 ML SYRINGE IVP STA (10:02)
[2024-12-19] MEDS ORDERED: NALOXONE 0.4 MG/ML 1 ML VIAL IV PRN (10:24)
[2024-12-19] MEDS ORDERED: ACETAMINOPHEN TAB 325 MG TAB PO PRN (10:24)
[2024-12-19] MEDS: SODIUM CHLORIDE 0.9% 1,000 ML IV SCH (10:30)
[2024-12-19] MEDS ORDERED: CLOTRIMAZOLE 1% CREAM 30 GM TUBE TOPICAL PRN (12:58)
[2024-12-19] MEDS: ASPIRIN 325 MG TAB PO SCH (14:12)
--- NOTE | 2024-12-19 19:37 | P.HPIM ---
History of Present Illness H&P Date: 12/19/24 HISTORY OF PRESENT ILLNESS: This is a 79-year-old male with a previous medical history significant for hypertension and hypertensive cardiovascular disease, mixed hyperlipidemia, history of macrocytic anemia, history of recurrent urinary tract infection, history of bladder atony with self-catheterization, history of C. difficile colitis, history of enlarged prostate, history of obesity with obstructive sleep apnea, history of vitamin D deficiency, chronic diastolic heart failure, patient presented to the emergency department at [facility] today in the morning after he slipped out of his chair appears to be a bit confused at that time, and he could not get up so his called EMS who came and evaluated the patient and transferred him to the emergency department at [facility], here in the emergency department he was found to have a urinary tract infection, at the same time his troponin came back elevated, likely related to a type II SD versus non-ST elevation SD, patient was complaining of no chest pain at this time, he was complaining of generalized fatigue and weakness, patient was started on Lovenox 40 mg subcutaneously every 12 hours, and he was placed on aspirin 81 mg once every day, along with his medication, and I placed cardiology consultation, patient also was started on IV antibiotic in the form of ceftriaxone 2 g piggyback every 24 hours, echocardiogram was ordered for further evaluation of LV function, still pending at time of dictation. REVIEW OF SYSTEMS: Constitutional: No documented fever, no chills, no night sweats. No weight change. Positive for weakness, fatigue or lethargy. No daytime sleepiness. EENT: No headache. No blurred vision or double vision, no loss of vision. No loss of Hearing, no ringing in the ears, no dizziness. No nasal drainage or congestion. No epistaxis. No sore throat. Lungs: No shortness of breath, no cough, no sputum production. No wheezing. Reports dyspnea with activity. Cardiovascular: No chest pain, no lower extremity edema. No palpitations. No paroxysmal nocturnal dyspnea. No orthopnea. No lightheadedness or dizziness. No syncopal episodes. Abdominal: Reports no abdominal pain. No nausea, vomiting. No diarrhea. No constipation. No bloody or tarry stools reports loss of appetite. Genitourinary: No dysuria, increased frequency, urgency. No urinary retention. Musculoskeletal: No myalgias. Positive for muscle weakness, positive for gait dysfunction, positive for frequent falls. Positive for back pain. No neck pain. Integumentary: No wounds, no lesions. No rash or pruritus. No unusual bruising. No change in hair or nails. Neurologic: No aphasia. No facial droop. Positive for mild change in mentation. No head injury. No headache. No paralysis. No paresthesia. Psychiatric: No depression. No anxiety. No mood swings. Endocrine: No abnormal blood sugars. No weight change. PAST MEDICAL HISTORY: Hypertension and hypertensive cardiovascular disease. Mixed hyperlipidemia. Obesity with obstructive sleep apnea. Macrocytic anemia. Enlarged prostate. Bladder atony with self-catheterization. Recurrent urinary tract infection. Recurrent C. difficile colitis. Vitamin D deficiency. History of kidney stones. PAST SURGICAL HISTORY: Left total knee arthroplasty 2003 Right knee MAKOplasty 2007 Bilateral cataract surgery. Bilateral kidney stones with J stent placement and cystoscopy. Left carpal tunnel release. Colonoscopy 2019. 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 FAMILY HISTORY: Father at age 67 from colon cancer, mother at age of 91 from congestive heart failure and had permanent pacemaker placement, patient had 2 brothers 1 at the age of 82 from prostate cancer, the other brother is 79 with a history of hemorrhagic CVA that he is recovered from, patient had 3 sisters 1 at the age of 82 from obesity complication the other 1 is 86 obese and has mental issues, and the third 1 is 82-year-old has obesity and osteoarthritis PHYSICAL EXAMINATION: General: This is 79-year-old male laying down in bed appears to be in minimal distress. Generally weak. HEENT: Head is atraumatic, normocephalic, pupils were equal round reactive to light and recommendation, extraocular muscle movement were intact, sclera nonicteric, conjunctivae were pale, mucous membranes of the mouth are somewhat dry. Neck: Supple, no JVP, normal carotid upstroke bilaterally, no lymphadenopathy. Chest: Decreased breath sounds at the bases, few rhonchi, no expiratory wheezes, no chest wall tenderness, no intercostal retractions. Heart: First heart sound is normal, second heart sounds normal there is systolic ejection murmur 2/6 systolic in the left sternal border. Abdomen: Soft, nontender, nondistended, positive bowel sounds. Extremities: There is no edema no calf tenderness DP +2 bilaterally. Neurologic examination: Patient is awake alert and oriented x3, cranial nerves II-12 appear grossly intact, muscle power were 4 out of 5 in upper extremities and 3 out of 5 in bilateral lower extremities, deep tendon reflexes normal bilaterally. ASSESSMENT AND PLAN: 1. Complicated urinary tract infection with sepsis. Urine culture, blood culture, continue ceftriaxone 2 g piggyback every 24 hours, infectious disease consultation, continue to monitor the patient very closely, follow-up with the patient over the next 24 hours. 2. Non-ST elevation SD versus type II SD at this time due to sepsis. Continue Lovenox 80 mg subcutaneous every 12 hours, continue aspirin 325 mg once every day, cardiology consultation appreciated, echocardiogram was ordered still pending at time of dictation. 3. Recurrent C. difficile colitis. Patient was treated multiple times for C. difficile, patient may need to be started on vancomycin 125 mg orally 4 times every day for prophylaxis for the next 7 days. Will discuss with ID. 4. Hypertension and hypertensive cardiovascular disease. Continue patient on losartan 25 mg orally once every day, monitor the patient blood pressure very closely. 5. Mixed hyperlipidemia. Patient is not taking any medication at this point in time. 6. Enlarged prostate. With bladder atony and self-catheterization currently has a Garcia catheter in place. Continue with doxazosin 8 mg at bedtime. 7. Spondylosis of the lumbar spine. Continue baclofen 5 mg at bedtime. 8. History of recurrent kidney stones. Stable at this time. 9. Chronic diastolic heart failure. Continue patient on torsemide 40 mg once every day, along with potassium supplementation 20 mill equivalent twice every day, monitor the patient CMP and magnesium level. Check echocardiogram for LV function. 10. History of onychomycosis. Continue terbinafine 250 mg orally once every day. 11. DVT prophylaxis. Lovenox 40 mg subcutaneous twice every day. 12. GI prophylaxis. Continue patient on Protonix 40 mg once every day. 13. Obesity with obstructive sleep apnea. Continue patient on CPAP. Continue modafinil 300 mg orally once every day. 14. Admit to inpatient. Estimated length of stay 2 midnights. 15. Full code. Past Medical History Past Medical History: Eye Disorder, GERD/Reflux, Hypertension, Osteoarthritis (OA), Prostate Disorder, Renal Disease, Skin Disorder, Sleep Apnea/CPAP/BIPAP Additional Past Medical History / Comment(s): PRE-CA SKIN LESIONS; BACK PAIN; HX RT RENAL CALCULUS, cellulitis of the lower legs with chronic venous stasis,benign prostatic hypertrophy, obstructive sleep apnea no CPAP, chronic back pain secondary to degenerative disc disease,macular degeneration, circ umcision has catheter bag History of Any Multi-Drug Resistant Organisms: None Reported, MRSA Date of last positivie culture/infection: 2014 MDRO Source:: finger Past Surgical History: Joint Replacement, Orthopedic Surgery, Prostate Surgery Additional Past Surgical History / Comment(s): 06/30/18 CYSTOSCOPY REMOVAL OF BLADDER CALCULI AND W/ LT URETERAL STENT INSERTION,LT TOTAL KNEE; RT KNEE MAKOPLASTY; ABD LIPOMA REMOVED; RT RENAL CALCULUS LITHOTRIPSY, RT URETERAL STENT, TURP; bilateral cataract removal with lens implants,circumcision Past Anesthesia/Blood Transfusion Reactions: No Reported Reaction Past Psychological History: No Psychological Hx Reported Smoking Status: Former smoker - Past Family History Father Family Medical History: Cancer Additional Family Medical History / Comment(s): Grandfather had heart attack, father at 67. Colon cancer- father. Mother Family Medical History: Congestive Heart Failure (CHF) Brother(s) Family Medical History: CVA/TIA Sister(s) Family Medical History: Unable to Obtain Medications and Allergies Home Medications Medication Instructions Recorded Confirmed Type Aspirin 325 mg PO DAILY 10/28/13 12/19/24 History Baclofen 5 mg PO HS 12/29/23 12/19/24 History Doxazosin Mesylate 8 mg PO HS 12/29/23 12/19/24 History Potassium Chloride ER [K-Dur 20] 20 meq PO BID 12/29/23 12/19/24 History Torsemide [Demadex] 40 mg PO DAILY 12/29/23 12/19/24 History Losartan [Cozaar] 25 mg PO DAILY 07/11/24 12/19/24 History Phentermine HCl [Adipex-P] 37.5 mg PO DAILY #3 tab 07/14/24 12/19/24 Rx modafiniL [Provigil] 300 mg PO DAILY #3 tab 07/14/24 12/19/24 Rx Ketoconazole 2% Cream [Nizoral 2%] 1 applic TOPICAL BID PRN 12/19/24 12/19/24 History Multivit,Calc,Min/FA/K1/Lycop 1 tab PO DAILY 12/19/24 12/19/24 History [One-A-Day Men's Complete Tab] Terbinafine [LamISIL] 250 mg PO DAILY 12/19/24 12/19/24 History Allergies Allergy/AdvReac Type Severity Reaction Status Date / Time No Known Allergies Allergy Verified 12/19/24 10:21 Physical Exam Vitals: Vital Signs Temp Pulse Resp BP Pulse Ox 12/19/24 10:03 81 18 105/50 96 12/19/24 08:46 98.5 F 82 16 107/48 97 12/19/24 08:38 98.5 F 86 16 107/48 94 L Intake and Output 12/18/24 12/19/24 12/19/24 22:59 06:59 14:59 Other: Weight 86.183 kg Results CBC & Chem 7: 12/19/24 09:04 12/19/24 09:04 Labs: Abnormal Lab Results - Last 24 Hours (Table) 12/19/24 12/19/24 12/19/24 Range/Units 09:04 09:04 09:04 WBC 13.41 H (4.50-10.00) 10*3/uL RBC 3.33 L (4.40-5.60) 10*6/uL Hgb 11.0 L (13.0-17.0) g/dL Hct 31.8 L (39.6-50.0) % MCH 33.0 H (27.0-32.0) pg Immature Gran # 0.06 H (0.00-0.04) 10*3/uL Neutrophils # 12.73 H (1.80-7.70) 10*3/uL Lymphocytes # 0.23 L (0.90-5.00) 10*3/uL Eosinophils # 0.00 L (0.04-0.35) 10*3/uL Sodium 131 L (137-145) mmol/L Potassium 3.4 L (3.5-5.1) mmol/L Chloride 97 L (98-107) mmol/L Glucose 141 H (74-99) mg/dL Ammonia 32 H (<30) umol/L Troponin I (0.000-0.034) ng/mL Total Protein 5.7 L (6.3-8.2) g/dL Urine Protein (Negative) Urine Blood (Negative) Ur Leukocyte Esterase (Negative) Urine RBC (0-5) /hpf Urine WBC (0-5) /hpf Urine WBC Clumps (None) /hpf Urine Bacteria (None) /hpf Urine Mucus (None) /hpf 12/19/24 12/19/24 Range/Units 09:04 09:09 WBC (4.50-10.00) 10*3/uL RBC (4.40-5.60) 10*6/uL Hgb (13.0-17.0) g/dL Hct (39.6-50.0) % MCH (27.0-32.0) pg Immature Gran # (0.00-0.04) 10*3/uL Neutrophils # (1.80-7.70) 10*3/uL Lymphocytes # (0.90-5.00) 10*3/uL Eosinophils # (0.04-0.35) 10*3/uL Sodium (137-145) mmol/L Potassium (3.5-5.1) mmol/L Chloride (98-107) mmol/L Glucose (74-99) mg/dL Ammonia (<30) umol/L Troponin I 0.066 H* (0.000-0.034) ng/mL Total Protein (6.3-8.2) g/dL Urine Protein 1+ H (Negative) Urine Blood Small H (Negative) Ur Leukocyte Esterase Large H (Negative) Urine RBC 6 H (0-5) /hpf Urine WBC >182 H (0-5) /hpf Urine WBC Clumps Many H (None) /hpf Urine Bacteria Many H (None) /hpf Urine Mucus Rare H (None) /hpf
[2024-12-19] MEDS: BACLOFEN 10 MG TAB PO SCH (20:32)
[2024-12-19] MEDS: POTASSIUM CHLORIDE ER 20 MEQ TAB.ER PO SCH (20:33)
[2024-12-19] MEDS: DOXAZOSIN 4 MG TAB PO SCH (20:33)
[2024-12-19] MEDS: ENOXAPARIN 80 MG/0.8 ML SYRINGE SQ SCH (21:51)
--- NOTE | 2024-12-19 22:55 | P.CONS ---
History of Present Illness - Reason for Consult Consult date: 12/19/24 UTI Requesting physician: Tamara Jacobo - Chief Complaint Weakness and fall x 1 day - History of Present Illness Patient is a 79-year-old male with a past medical history significant for GERD/Reflux, Hypertension, Osteoarthritis (OA), Prostate Disorder, Renal Disease, Skin Disorder, Sleep Apnea/CPAP/BIPAP, patient also have urinary retention requiring self-catheterization almost 5 times a day patient has been brought to the hospital for evaluation of weakness apparently the patient slid out of his recliner and was not able to get up EMS was called and who sub sequently brought the patient to the hospital patient on presentation to the hospital was afebrile no fever have recorded subsequently patient was nontachycardic mildly hypertensive but not hypoxic no need for supplemental oxygen he did have elevated white count 13.41 creatinine is 1.19 troponins are elevated liver enzymes are normal urine has been positive with large leukocyte esterase more than 182 WBC urine culture have been obtained patient received a dose of ceftriaxone infectious he was consulted for further management of febrile therapy as mentioned earlier the patient does self-catheterization for urinary retention has mention change in the color of the urine becoming more darker cloudy and some sediments in it the last time he self catheterize himself Review of Systems Positive point and negatives has been mentioned in the HPI, complete review of systems was performed and all other systems are negative Past Medical History Past Medical History: Eye Disorder, GERD/Reflux, Hypertension, Osteoarthritis (OA), Prostate Disorder, Renal Disease, Skin Disorder, Sleep Apnea/CPAP/BIPAP Additional Past Medical History / Comment(s): PRE-CA SKIN LESIONS; BACK PAIN; HX RT RENAL CALCULUS, cellulitis of the lower legs with chronic venous stasis,benign prostatic hypertrophy, obstructive sleep apnea no CPAP, chronic back pain secondary to degenerative disc disease,macular degeneration, cir cumcision has catheter bag History of Any Multi-Drug Resistant Organisms: None Reported, MRSA Year Discovered:: 2014 MDRO Source:: finger Past Surgical History: Joint Replacement, Orthopedic Surgery, Prostate Surgery Additional Past Surgical History / Comment(s): 06/30/18 CYSTOSCOPY REMOVAL OF BLADDER CALCULI AND W/ LT URETERAL STENT INSERTION,LT TOTAL KNEE; RT KNEE MAKOPLASTY; ABD LIPOMA REMOVED; RT RENAL CALCULUS LITHOTRIPSY, RT URETERAL STENT, TURP; bilateral cataract removal with lens implants,circumcision Past Anesthesia/Blood Transfusion Reactions: No Reported Reaction Past Psychological History: No Psychological Hx Reported Smoking Status: Former smoker - Past Family History Father Family Medical History: Cancer Additional Family Medical History / Comment(s): Grandfather had heart attack, father at 67. Colon cancer- father. Mother Family Medical History: Congestive Heart Failure (CHF) Brother(s) Family Medical History: CVA/TIA Sister(s) Family Medical History: Unable to Obtain Medications and Allergies Home Medications Medication Instructions Recorded Confirmed Type Aspirin 325 mg PO DAILY 10/28/13 12/19/24 History Baclofen 5 mg PO HS 12/29/23 12/19/24 History Doxazosin Mesylate 8 mg PO HS 12/29/23 12/19/24 History Potassium Chloride ER [K-Dur 20] 20 meq PO BID 12/29/23 12/19/24 History Torsemide [Demadex] 40 mg PO DAILY 12/29/23 12/19/24 History Losartan [Cozaar] 25 mg PO DAILY 07/11/24 12/19/24 History Phentermine HCl [Adipex-P] 37.5 mg PO DAILY #3 tab 07/14/24 12/19/24 Rx modafiniL [Provigil] 300 mg PO DAILY #3 tab 07/14/24 12/19/24 Rx Ketoconazole 2% Cream [Nizoral 2%] 1 applic TOPICAL BID PRN 12/19/24 12/19/24 History Multivit,Calc,Min/FA/K1/Lycop 1 tab PO DAILY 12/19/24 12/19/24 History [One-A-Day Men's Complete Tab] Terbinafine [LamISIL] 250 mg PO DAILY 12/19/24 12/19/24 History Allergies Allergy/AdvReac Type Severity Reaction Status Date / Time No Known Allergies Allergy Verified 12/19/24 10:21 Physical Exam Vitals: Vital Signs Temp Pulse Resp BP Pulse Ox 12/19/24 15:00 73 18 95/53 96 12/19/24 14:14 78 18 92/51 96 12/19/24 10:03 81 18 105/50 96 12/19/24 08:46 98.5 F 82 16 107/48 97 12/19/24 08:38 98.5 F 86 16 107/48 94 L Intake and Output 06/30/25 06/30/25 06/30/25 06:59 14:59 22:59 Other: Weight 86.183 kg GENERAL DESCRIPTION: Elderly male lying in bed, no distress. No tachypnea or accessory muscle of respiration use. HEENT: Shows Pallor , no scleral icterus. Oral mucous membrane is dry. No pharyngeal erythema or thrush NECK: Trachea central, no thyromegaly. LUNGS: Unlabored breathing. Clear to auscultation anteriorly. No wheeze or crackle. HEART: S1, S2, regular rate and rhythm. No loud murmur ABDOMEN: Soft, no tenderness , guarding or rigidity, no organomegaly EXTREMITIES: No edema of feet. SKIN: No rash, no masses palpable. NEUROLOGICAL: The patient is awake, alert, oriented x3, mood and affect normal. Results CBC & Chem 7: 12/20/24 06:44 12/20/24 06:44 Labs: Abnormal Lab Results - Last 24 Hours (Table) 12/19/24 12/19/24 12/19/24 Range/Units 09:04 09:04 09:04 WBC 13.41 H (4.50-10.00) 10*3/uL RBC 3.33 L (4.40-5.60) 10*6/uL Hgb 11.0 L (13.0-17.0) g/dL Hct 31.8 L (39.6-50.0) % MCH 33.0 H (27.0-32.0) pg Immature Gran # 0.06 H (0.00-0.04) 10*3/uL Neutrophils # 12.73 H (1.80-7.70) 10*3/uL Lymphocytes # 0.23 L (0.90-5.00) 10*3/uL Eosinophils # 0.00 L (0.04-0.35) 10*3/uL Sodium 131 L (137-145) mmol/L Potassium 3.4 L (3.5-5.1) mmol/L Chloride 97 L (98-107) mmol/L Glucose 141 H (74-99) mg/dL Ammonia 32 H (<30) umol/L Troponin I (0.000-0.034) ng/mL Total Protein 5.7 L (6.3-8.2) g/dL Urine Protein (Negative) Urine Blood (Negative) Ur Leukocyte Esterase (Negative) Urine RBC (0-5) /hpf Urine WBC (0-5) /hpf Urine WBC Clumps (None) /hpf Urine Bacteria (None) /hpf Urine Mucus (None) /hpf 12/19/24 12/19/24 12/19/24 Range/Units 09:04 09:09 11:21 WBC (4.50-10.00) 10*3/uL RBC (4.40-5.60) 10*6/uL Hgb (13.0-17.0) g/dL Hct (39.6-50.0) % MCH (27.0-32.0) pg Immature Gran # (0.00-0.04) 10*3/uL Neutrophils # (1.80-7.70) 10*3/uL Lymphocytes # (0.90-5.00) 10*3/uL Eosinophils # (0.04-0.35) 10*3/uL Sodium (137-145) mmol/L Potassium (3.5-5.1) mmol/L Chloride (98-107) mmol/L Glucose (74-99) mg/dL Ammonia (<30) umol/L Troponin I 0.066 H* 0.058 H* (0.000-0.034) ng/mL Total Protein (6.3-8.2) g/dL Urine Protein 1+ H (Negative) Urine Blood Small H (Negative) Ur Leukocyte Esterase Large H (Negative) Urine RBC 6 H (0-5) /hpf Urine WBC >182 H (0-5) /hpf Urine WBC Clumps Many H (None) /hpf Urine Bacteria Many H (None) /hpf Urine Mucus Rare H (None) /hpf 12/19/24 Range/Units 14:05 WBC (4.50-10.00) 10*3/uL RBC (4.40-5.60) 10*6/uL Hgb (13.0-17.0) g/dL Hct (39.6-50.0) % MCH (27.0-32.0) pg Immature Gran # (0.00-0.04) 10*3/uL Neutrophils # (1.80-7.70) 10*3/uL Lymphocytes # (0.90-5.00) 10*3/uL Eosinophils # (0.04-0.35) 10*3/uL Sodium (137-145) mmol/L Potassium (3.5-5.1) mmol/L Chloride (98-107) mmol/L Glucose (74-99) mg/dL Ammonia (<30) umol/L Troponin I 0.047 H* (0.000-0.034) ng/mL Total Protein (6.3-8.2) g/dL Urine Protein (Negative) Urine Blood (Negative) Ur Leukocyte Esterase (Negative) Urine RBC (0-5) /hpf Urine WBC (0-5) /hpf Urine WBC Clumps (None) /hpf Urine Bacteria (None) /hpf Urine Mucus (None) /hpf Assessment and Plan (1) Urinary tract infection Current Visit: Yes Status: Acute Priority: Medium Code(s): N39.0 - URINARY TRACT INFECTION, SITE NOT SPECIFIED SNOMED Code(s): 38107566 (2) Leukocytosis Current Visit: No Status: Acute Priority: Medium Code(s): D72.829 - ELEVATED WHITE BLOOD CELL COUNT, UNSPECIFIED SNOMED Code(s): 964517771 Plan: 1patient presented to hospital with generalized weakness he did have a fall patient do have a risk factor for UTIs he has to self catheterize himself 5 times a day is complaining of urine getting darker cloudy some sediment, significantly positive UA likely recently symptomatic UTI likely from enteric gram-negative pathogen 2-leukocytosis likely due to UTI 3-we will treat the patient with Rocephin while waiting for the culture to guido ascencio We will follow on clinical condition and cultures to further adjust medication if needed Thank you for this consultation we will follow the patient along with you Dictation was produced using [employer] dictation software. please excuse any grammatical, word or spelling errors. Time with Patient: Greater than 30
[2024-12-20 07:46] LABS: Basophils # (A) 0.03 10*3/uL (0.00-0.10); Basophils % (A) 0.3 %; Eosinophils # (A) 0.21 10*3/uL (0.04-0.35); Eosinophils % (A) 2.3 %; HCT 30.4 % (39.6-50.0); HGB 10.3 g/dL (13.0-17.0); Lymphocytes # (A) 1.28 10*3/uL (0.90-5.00); Lymphocytes % (A) 13.9 %; MCH 33.4 pg (27.0-32.0); MCHC 33.9 g/dL (32.0-37.0); MCV 98.7 fL (80.0-97.0); Monocytes # (A) 1.03 10*3/uL (0.20-1.00); Monocytes % (A) 11.2 %; Neutrophils # (A) 6.60 10*3/uL (1.80-7.70); Neutrophils % (A) 71.9 %; Platelet Count 167 10*3/uL (140-440); RBC 3.08 10*6/uL (4.40-5.60); RDW 13.9 % (11.5-14.5); WBC 9.19 10*3/uL (4.50-10.00)
[2024-12-20 08:11] LABS: ALT 15 U/L (4-49); AST 32 U/L (17-59); African American GFR (CKD) 89 (>60 ml/min/1.73 sqM); Albumin 2.8 g/dL (3.5-5.0); Alkaline Phosphatase 62 U/L (38-126); Anion Gap 7 mmol/L; Blood Urea Nitrogen 17 mg/dL (9-20); Calcium 8.2 mg/dL (8.4-10.2); Carbon Dioxide 26 mmol/L (22-30); Chloride 101 mmol/L (98-107); Glucose 94 mg/dL (74-99); Non-African American GFR(CKD) 77 (>60 ml/min/1.73 sqM); Potassium 3.5 mmol/L (3.5-5.1); Sodium 134 mmol/L (137-145); Total Protein 4.8 g/dL (6.3-8.2)
[2024-12-20] MEDS: MULTIVITAMINS, THERA 1 EACH TAB PO SCH (09:09)
[2024-12-20] MEDS: TERBINAFINE 250 MG TAB PO SCH (09:09)
[2024-12-20] MEDS: LOSARTAN 25 MG TAB PO SCH (09:09)
[2024-12-20] MEDS: TORSEMIDE 20 MG TAB PO SCH (09:09)
--- NOTE | 2024-12-20 10:27 | P.CRDCN ---
History of Present Illness Consult date: 12/20/24 Reason for Consult (text): NSTEMI History of present illness: This is a 79-year-old male patient of Dr. Miranda with past medical history of hy pertension, idiopathic cardiomyopathy, morbid obesity with weight loss. We have been asked to evaluate the patient for NSTEMI. Patient gives history that he slid off a chair and landed on the floor. He states he normally sleeps in a recliner. He denies any injury. He denies lightheadedness, dizziness or syncope. He denies fever or chills. He denies chest pain or shortness of breath. Blood pressure 112/77, heart rate 79, pulse ox 95% on room air. Patient is seen today in the emergency center waiting for a bed on the cardiac stepdown unit. Patient has been started on IV antibiotics for UTI. -EKG: Sinus rhythm with Q waves V1, V2, V3 which are similar to previous EKGs, no acute changes. -Chest x-ray: No evidence of acute pulmonary disease. -CT brain: No acute intracranial hemorrhage or midline shift. There is diffuse age-related cerebral atrophy and chronic small vessel ischemic changes. -Laboratory studies: Initial WBC 13.4, hemoglobin 10.3, sodium 134, potassium 3.5, troponin 0.066, 0.058, 0.047. Urinalysis positive for infection. -Home cardiac medications: Aspirin 325 mg daily, losartan 25 mg daily, potassium chloride 20 mEq twice daily, torsemide 40 mg daily. -Cardiac catheterization performed 05/31/2021 revealed EF 42%, normal coronaries, right dominant. -Echocardiogram performed at [facility] on 10/27/2023 revealed poorly visualized endocardial and intracardiac valves. Normal LV systolic function. Review Of Systems: At the time of my exam: CONSTITUTIONAL: Denies fever or chills. HEENT: Denies blurred vision, vision changes, or eye pain. Denies hemoptysis CARDIOVASCULAR: Denies chest pain. Denies orthopnea. Denies PND. Denies palpitations RESPIRATORY: Denies shortness of breath. GASTROINTESTINAL: Denies abdominal pain. Denies nausea or vomiting. HEMATOLOGIC: Denies bleeding disorders. GENITOURINARY: Denies any blood in urine. SKIN: Denies puritis. Denies rash. Physical examination: Gen: This is 79-year-old male in no acute distress VS: reviewed HEENT: Head is atraumatic, normocephalic. Pupils equal, round. Sclerae is anicteric. NECK: Supple. No JVD. LUNGS: Clear to auscultation. No wheezes or rhonchi. No intercostal retractions. HEART: Regular rate and rhythm. 2/6 systolic ejection murmur. ABDOMEN: Soft No tenderness. EXTREMITIES: No pedal edema. No calf tenderness. NEUROLOGICAL: Patient is awake, alert and oriented x3. Assessment: Urinary tract infection Elevated troponin and flat pattern, not indicative of acute coronary syndrome Hypertension Hyperlipidemia Idiopathic cardiomyopathy Chronic diastolic heart failure Plan: Resume patient's home cardiac medications Obtain 2-D echocardiogram and Doppler study to assess cardiac structure and function Further recommendations to follow based upon clinical course Thank you kindly for this consultation. Nurse practitioner note has been reviewed, I agree with documented findings and plan of care. Patient was seen and examined. Past Medical History Past Medical History: Eye Disorder, GERD/Reflux, Hypertension, Osteoarthritis (OA), Prostate Disorder, Renal Disease, Skin Disorder, Sleep Apnea/CPAP/BIPAP Additional Past Medical History / Comment(s): PRE-CA SKIN LESIONS; BACK PAIN; HX RT RENAL CALCULUS, cellulitis of the lower legs with chronic venous stasis,benign prostatic hypertrophy, obstructive sleep apnea no CPAP, chronic back pain secondary to degenerative disc disease,macular degeneration, circumcision has catheter bag History of Any Multi-Drug Resistant Organisms: None Reported, MRSA Date of last positivie culture/infection: 2014 MDRO Source:: finger Past Surgical History: Joint Replacement, Orthopedic Surgery, Prostate Surgery Additional Past Surgical History / Comment(s): 06/30/18 CYSTOSCOPY REMOVAL OF BLADDER CALCULI AND W/ LT URETERAL STENT INSERTION,LT TOTAL KNEE; RT KNEE MAKOPLASTY; ABD LIPOMA REMOVED; RT RENAL CALCULUS LITHOTRIPSY, RT URETERAL STENT, TURP; bilateral cataract removal with lens implants,circumcision Past Anesthesia/Blood Transfusion Reactions: No Reported Reaction Past Psychological History: No Psychological Hx Reported Smoking Status: Former smoker - Past Family History Father Family Medical History: Cancer Additional Family Medical History / Comment(s): Grandfather had heart attack, father at 67. Colon cancer- father. Mother Family Medical History: Congestive Heart Failure (CHF) Brother(s) Family Medical History: CVA/TIA Sister(s) Family Medical History: Unable to Obtain Medications and Allergies Home Medications Medication Instructions Recorded Confirmed Type Aspirin 325 mg PO DAILY 10/28/13 12/19/24 History Baclofen 5 mg PO HS 12/29/23 12/19/24 History Doxazosin Mesylate 8 mg PO HS 12/29/23 12/19/24 History Potassium Chloride ER [K-Dur 20] 20 meq PO BID 12/29/23 12/19/24 History Torsemide [Demadex] 40 mg PO DAILY 12/29/23 12/19/24 History Losartan [Cozaar] 25 mg PO DAILY 07/11/24 12/19/24 History Phentermine HCl [Adipex-P] 37.5 mg PO DAILY #3 tab 07/14/24 12/19/24 Rx modafiniL [Provigil] 300 mg PO DAILY #3 tab 07/14/24 12/19/24 Rx Ketoconazole 2% Cream [Nizoral 2%] 1 applic TOPICAL BID PRN 12/19/24 12/19/24 History Multivit,Calc,Min/FA/K1/Lycop 1 tab PO DAILY 12/19/24 12/19/24 History [One-A-Day Men's Complete Tab] Terbinafine [LamISIL] 250 mg PO DAILY 12/19/24 12/19/24 History Allergies Allergy/AdvReac Type Severity Reaction Status Date / Time No Known Allergies Allergy Verified 12/19/24 10:21 Physical Exam Vitals: Vital Signs Temp Pulse Resp BP Pulse Ox 12/20/24 06:32 98.1 F 66 18 94/56 95 12/20/24 04:51 75 16 92/56 95 12/20/24 03:05 66 18 111/53 97 12/20/24 02:32 68 16 104/50 95 12/20/24 01:21 98.9 F 68 18 102/54 97 12/19/24 18:35 98.2 F 76 16 88/50 97 12/19/24 15:00 73 18 95/53 96 12/19/24 14:14 78 18 92/51 96 12/19/24 10:03 81 18 105/50 96 12/19/24 08:46 98.5 F 82 16 107/48 97 12/19/24 08:38 98.5 F 86 16 107/48 94 L Intake and Output 12/19/24 12/20/24 12/20/24 22:59 06:59 14:59 Output Total 300 Balance -300 Output: Urine 300 Straight 300 Results 12/20/24 06:44 12/20/24 06:44 Cardiac Enzymes 12/19/24 12/19/24 12/19/24 Range/Units 09:04 09:04 11:21 AST 36 (17-59) U/L Troponin I 0.066 H* 0.058 H* (0.000-0.034) ng/mL 12/19/24 Range/Units 14:05 AST (17-59) U/L Troponin I 0.047 H* (0.000-0.034) ng/mL Coagulation 12/19/24 Range/Units 09:04 PT 11.3 (10.0-12.5) sec APTT 23.1 (22.0-30.0) sec CBC 12/19/24 12/20/24 Range/Units 09:04 06:44 WBC 13.41 H 9.19 (4.50-10.00) 10*3/uL RBC 3.33 L 3.08 L (4.40-5.60) 10*6/uL Hgb 11.0 L 10.3 L (13.0-17.0) g/dL Hct 31.8 L 30.4 L (39.6-50.0) % Plt Count 169 167 (140-440) 10*3/uL Comprehensive Metabolic Panel 12/19/24 Range/Units 09:04 Sodium 131 L (137-145) mmol/L Potassium 3.4 L (3.5-5.1) mmol/L Chloride 97 L (98-107) mmol/L Carbon Dioxide 24 (22-30) mmol/L BUN 19 (9-20) mg/dL Creatinine 1.19 (0.66-1.25) mg/dL Glucose 141 H (74-99) mg/dL Calcium 8.7 (8.4-10.2) mg/dL AST 36 (17-59) U/L ALT 17 (4-49) U/L Alkaline Phosphatase 72 (38-126) U/L Total Protein 5.7 L (6.3-8.2) g/dL Albumin 3.6 (3.5-5.0) g/dL Current Medications Generic Name Dose Route Start Last Admin Trade Name Freq PRN Reason Stop Dose Admin Acetaminophen 650 mg 12/19/24 10:24 Acetaminophen Tab 325 Mg Tab PO Q6HR PRN Mild Pain or Fever > 100.5 Aspirin 325 mg 12/19/24 13:00 12/19/24 14:12 Aspirin 325 Mg Tab PO 325 mg DAILY EDWIN Administration Baclofen 5 mg 12/19/24 21:00 12/19/24 20:32 Baclofen 10 Mg Tab PO 5 mg HS EDWIN Administration Clotrimazole 1 applic 12/19/24 12:58 Clotrimazole 1% Cream 30 Gm Tube TOPICAL BID PRN groin when flared Doxazosin Mesylate 8 mg 12/19/24 21:00 12/19/24 20:33 Doxazosin 4 Mg Tab PO 8 mg HS EDWIN Administration Enoxaparin Sodium 80 mg 12/19/24 21:00 12/19/24 21:51 Enoxaparin 80 Mg/0.8 Ml Syringe SQ 80 mg BID EDWIN Administration Sodium Chloride 1,000 mls @ 75 mls/hr 12/19/24 10:30 12/19/24 23:24 Saline 0.9% IV 75 mls/hr .[id number] EDWIN Administration Ceftriaxone Sodium 2 gm/ 50 mls @ 100 mls/hr 12/19/24 21:00 12/19/24 20:35 Sodium Chloride IVPB 100 mls/hr Q24H EDWIN Administration Protocol Losartan Potassium 25 mg 12/20/24 09:00 Losartan 25 Mg Tab PO DAILY EDWIN Modafinil 300 mg 12/20/24 09:00 Modafinil 100 Mg Tab PO DAILY [facility] Multivitamins 1 each 12/20/24 09:00 Multivitamins, Thera 1 Each Tab PO DAILY EDWIN Naloxone HCl 0.2 mg 12/19/24 10:24 Naloxone 0.4 Mg/Ml 1 Ml Vial IV Q2M PRN Opioid Reversal Potassium Chloride 20 meq 12/19/24 21:00 12/19/24 20:33 Potassium Chloride Er 20 Meq Tab.Er PO 20 meq BID EDWIN Administration Terbinafine HCl 250 mg 12/20/24 09:00 Terbinafine 250 Mg Tab PO DAILY EDWIN Protocol Torsemide 40 mg 12/20/24 09:00 Torsemide 20 Mg Tab PO DAILY EDWIN Intake and Output 06/30/25 07/01/25 07/01/25 22:59 06:59 14:59 Output Total 300 Balance -300 Output: Urine 300 Straight 300 12/20/24 06:44 12/19/24 09:04
--- NOTE | 2024-12-20 15:11 | P.PN ---
Subjective Progress Note Date: 12/20/24 Principal diagnosis: Reason for follow-up is UTI and leukocytosis Patient is a 79-year-old male with a past medical history significant for GERD/Reflux, Hypertension, Osteoarthritis (OA), Prostate Disorder, Renal Disease, Skin Disorder, Sleep Apnea/CPAP/BIPAP, patient also have urinary retention requiring self-catheterization brought to the hospital for evaluation of weakness fell out of his chair did have a positive UA concerning for symptomatic UTI. On today's evaluation that is 12/20/2024, Patient is afebrile this morning patient denies having any chest pain shortness of breath or cough, the patient is currently on room air, patient denies any abdominal pain no diarrhea no nausea no vomiting. Patient white count normalized to 9.19, creatinine 0.95 urine is growing gram- negative Objective - Vital Signs Vital signs: Vital Signs Temp 98.1 F 12/20/24 06:32 Pulse 79 12/20/24 08:00 Resp 18 12/20/24 08:00 BP 112/77 12/20/24 08:00 Pulse Ox 95 12/20/24 08:00 FiO2 Intake & Output 12/19/24 12/20/24 12/20/24 18:59 06:59 18:59 Output Total 300 Balance -300 Weight 86.183 kg Output: Urine 300 Straight 300 - Exam GENERAL DESCRIPTION: An elderly male lying in bed in no distress RESPIRATORY SYSTEM: Unlabored breathing , decreased breath sounds at bases HEART: S1 S2 regular rate and rhythm , ABDOMEN: Soft , no tenderness EXTREMITIES: No edema feet - Labs CBC & Chem 7: 12/20/24 06:44 12/20/24 06:44 Labs: Abnormal Lab Results - Last 24 Hours (Table) 12/19/24 12/19/24 12/19/24 Range/Units 09:04 11:21 14:05 RBC (4.40-5.60) 10*6/uL Hgb (13.0-17.0) g/dL Hct (39.6-50.0) % MCV (80.0-97.0) fL MCH (27.0-32.0) pg Monocytes # (0.20-1.00) 10*3/uL Sodium (137-145) mmol/L Calcium (8.4-10.2) mg/dL Troponin I 0.066 H* 0.058 H* 0.047 H* (0.000-0.034) ng/mL Total Protein (6.3-8.2) g/dL Albumin (3.5-5.0) g/dL 12/20/24 12/20/24 Range/Units 06:44 06:44 RBC 3.08 L (4.40-5.60) 10*6/uL Hgb 10.3 L (13.0-17.0) g/dL Hct 30.4 L (39.6-50.0) % MCV 98.7 H (80.0-97.0) fL MCH 33.4 H (27.0-32.0) pg Monocytes # 1.03 H (0.20-1.00) 10*3/uL Sodium 134 L (137-145) mmol/L Calcium 8.2 L (8.4-10.2) mg/dL Troponin I (0.000-0.034) ng/mL Total Protein 4.8 L (6.3-8.2) g/dL Albumin 2.8 L (3.5-5.0) g/dL Assessment and Plan (1) Urinary tract infection Current Visit: Yes Status: Acute Priority: Medium Code(s): N39.0 - URINARY TRACT INFECTION, SITE NOT SPECIFIED SNOMED Code(s): 57891502 (2) Leukocytosis Current Visit: No Status: Acute Priority: Medium Code(s): D72.829 - ELEVATED WHITE BLOOD CELL COUNT, UNSPECIFIED SNOMED Code(s): 651280835 Plan: 1patient presented to hospital with generalized weakness he did have a fall patient do have a risk factor for UTIs he has to self catheterize himself 5 times a day is complaining of urine getting darker cloudy some sediment, significantly positive UA and did have a suprapubic tenderness on initial evaluation likely recently symptomatic UTI likely from enteric gram-negative pathogen 2-leukocytosis likely due to UTI which has normalized with Rocephin and urine is growing gram-negative 3-we will treat the patient with Rocephin while waiting for the culture to finalize and monitor clinical course closely Dictation was produced using [employer] software. please excuse any grammatical, word or spelling errors. Time with Patient: Less than 30
--- NOTE | 2024-12-20 18:09 | P.PN ---
Subjective Progress Note Date: 12/20/24 HISTORY OF PRESENT ILLNESS: This is a 79-year-old male with a previous medical history significant for hypertension and hypertensive cardiovascular disease, mixed hyperlipidemia, history of macrocytic anemia, history of recurrent urinary tract infection, history of bladder atony with self-catheterization, history of C. difficile colitis, history of enlarged prostate, history of obesity with obstructive sleep apnea, history of vitamin D deficiency, chronic diastolic heart failure, patient presented to the emergency department at [facility] today in the morning after he slipped out of his chair appears to be a bit confused at that time, and he could not get up so his called EMS who came and evaluated the patient and transferred him to the emergency department at [facility], here in the emergency department he was found to have a urinary tract infection, at the same time his troponin came back elevated, likely related to a type II CA versus non-ST elevation CA, patient was complaining of no chest pain at this time, he was complaining of generalized fatigue and weakness, patient was started on Lovenox 40 mg subcutaneously every 12 hours, and he was placed on aspirin 81 mg once every day, along with his medication, and I placed cardiology consultation, patient also was started on IV antibiotic in the form of ceftriaxone 2 g piggyback every 24 hours, echocardiogram was ordered for further evaluation of LV function, still pending at time of dictation. 12/20: Patient is sitting up in bed in no apparent distress, he is feeling a lot better today than yesterday, he did receive IV antibiotic, he did receive IV fluid resuscitation, his blood pressure stable at this time, he does not appear to have any fever or chills at this time, he is more awake and more alert today, we will continue to follow-up with the patient very closely, keep the patient hospital for another 24 hours, hopefully if we get the culture back in the next 24 hours patient can be discharged home on oral antibiotic and follow-up with us as an outpatient. REVIEW OF SYSTEMS: Constitutional: No documented fever, no chills, no night sweats. No weight change. Positive for weakness, fatigue or lethargy. No daytime sleepiness. EENT: No headache. No blurred vision or double vision, no loss of vision. No loss of Hearing, no ringing in the ears, no dizziness. No nasal drainage or congestion. No epistaxis. No sore throat. Lungs: No shortness of breath, no cough, no sputum production. No wheezing. Reports dyspnea with activity. Cardiovascular: No chest pain, no lower extremity edema. No palpitations. No paroxysmal nocturnal dyspnea. No orthopnea. No lightheadedness or dizziness. No syncopal episodes. Abdominal: Reports no abdominal pain. No nausea, vomiting. No diarrhea. No constipation. No bloody or tarry stools reports loss of appetite. Genitourinary: No dysuria, increased frequency, urgency. No urinary retention. Musculoskeletal: No myalgias. Positive for muscle weakness, positive for gait dysfunction, positive for frequent falls. Positive for back pain. No neck pain. Integumentary: No wounds, no lesions. No rash or pruritus. No unusual bruis ing. No change in hair or nails. Neurologic: No aphasia. No facial droop. Positive for mild change in mentation. No head injury. No headache. No paralysis. No paresthesia. Psychiatric: No depression. No anxiety. No mood swings. Endocrine: No abnormal blood sugars. No weight change. PHYSICAL EXAMINATION: General: This is 79-year-old male laying down in bed appears to be in minimal distress. Generally weak. HEENT: Head is atraumatic, normocephalic, pupils were equal round reactive to light and recommendation, extraocular muscle movement were intact, sclera nonicteric, conjunctivae were pale, mucous membranes of the mouth are somewhat dry. Neck: Supple, no JVP, normal carotid upstroke bilaterally, no lymphadenopathy. Chest: Decreased breath sounds at the bases, few rhonchi, no expiratory wheezes, no chest wall tenderness, no intercostal retractions. Heart: First heart sound is normal, second heart sounds normal there is systolic ejection murmur 2/6 systolic in the left sternal border. Abdomen: Soft, nontender, nondistended, positive bowel sounds. Extremities: There is no edema no calf tenderness DP +2 bilaterally. Neurologic examination: Patient is awake alert and oriented x3, cranial nerves II-12 appear grossly intact, muscle power were 4 out of 5 in upper extremities and 3 out of 5 in bilateral lower extremities, deep tendon reflexes normal bilaterally. ASSESSMENT AND PLAN: 1. Complicated urinary tract infection with sepsis. Urine culture, blood culture, continue ceftriaxone 2 g piggyback every 24 hours, infectious disease consultation, continue to monitor the patient very closely, urine culture still pending. 2. Non-ST elevation CA versus type II CA at this time due to sepsis. Continue Lovenox 80 mg subcutaneously twice every day, continue aspirin 81 g once every day, cardiology consultation appreciated, echocardiogram was done still pending at time of dictation. 3. Recurrent C. difficile colitis. Patient was treated multiple times for C. difficile, patient may need to be started on vancomycin 125 mg orally 4 times every day for prophylaxis for the next 7 days. Will discuss with ID. 4. Hypertension and hypertensive cardiovascular disease. Continue patient on losartan 25 mg orally once every day, monitor the patient blood pressure very closely. 5. Mixed hyperlipidemia. Patient is not taking any medication at this point in time. 6. Enlarged prostate. With bladder atony and self-catheterization currently has a Garcia catheter in place. Continue with doxazosin 8 mg at bedtime. 7. Spondylosis of the lumbar spine. Continue baclofen 5 mg at bedtime. 8. History of recurrent kidney stones. Stable at this time. 9. Chronic diastolic heart failure. Continue patient on torsemide 40 mg once every day, along with potassium supplementation 20 mill equivalent twice every day, monitor the patient CMP and magnesium level. Check echocardiogram for LV function. 10. History of onychomycosis. Continue terbinafine 250 mg orally once every day. 11. DVT prophylaxis. Lovenox 40 mg subcutaneous twice every day. 12. GI prophylaxis. Continue patient on Protonix 40 mg once every day. 13. Obesity with obstructive sleep apnea. Continue patient on CPAP. Continue modafinil 300 mg orally once every day. 14. Likely home tomorrow morning if urine culture is back. Objective - Vital Signs Vital signs: Vital Signs Temp 98.1 F 12/20/24 06:32 Pulse 79 12/20/24 08:00 Resp 18 12/20/24 08:00 BP 112/77 12/20/24 08:00 Pulse Ox 95 12/20/24 08:00 FiO2 Intake & Output 12/19/24 12/20/24 12/20/24 18:59 06:59 18:59 Output Total 300 Balance -300 Weight 86.183 kg Output: Urine 300 Straight 300 - Labs CBC & Chem 7: 12/20/24 06:44 12/20/24 06:44 Labs: Abnormal Lab Results - Last 24 Hours (Table) 12/19/24 12/19/24 12/20/24 Range/Units 11:21 14:05 06:44 RBC 3.08 L (4.40-5.60) 10*6/uL Hgb 10.3 L (13.0-17.0) g/dL Hct 30.4 L (39.6-50.0) % MCV 98.7 H (80.0-97.0) fL MCH 33.4 H (27.0-32.0) pg Monocytes # 1.03 H (0.20-1.00) 10*3/uL Sodium (137-145) mmol/L Calcium (8.4-10.2) mg/dL Troponin I 0.058 H* 0.047 H* (0.000-0.034) ng/mL Total Protein (6.3-8.2) g/dL Albumin (3.5-5.0) g/dL 12/20/24 Range/Units 06:44 RBC (4.40-5.60) 10*6/uL Hgb (13.0-17.0) g/dL Hct (39.6-50.0) % MCV (80.0-97.0) fL MCH (27.0-32.0) pg Monocytes # (0.20-1.00) 10*3/uL Sodium 134 L (137-145) mmol/L Calcium 8.2 L (8.4-10.2) mg/dL Troponin I (0.000-0.034) ng/mL Total Protein 4.8 L (6.3-8.2) g/dL Albumin 2.8 L (3.5-5.0) g/dL
[2024-12-20] MEDS: VANCOMYCIN 125 MG CAPSULE PO SCH (23:03)
[2024-12-21 08:35] LABS: Basophils # (A) 0.04 10*3/uL (0.00-0.10); Basophils % (A) 0.7 %; Eosinophils # (A) 0.16 10*3/uL (0.04-0.35); Eosinophils % (A) 2.7 %; HCT 29.8 % (39.6-50.0); HGB 10.2 g/dL (13.0-17.0); Lymphocytes # (A) 1.18 10*3/uL (0.90-5.00); Lymphocytes % (A) 19.6 %; MCH 33.0 pg (27.0-32.0); MCHC 34.2 g/dL (32.0-37.0); MCV 96.4 fL (80.0-97.0); Monocytes # (A) 0.49 10*3/uL (0.20-1.00); Monocytes % (A) 8.1 %; Neutrophils # (A) 4.12 10*3/uL (1.80-7.70); Neutrophils % (A) 68.4 %; Platelet Count 201 10*3/uL (140-440); RBC 3.09 10*6/uL (4.40-5.60); RDW 13.8 % (11.5-14.5); WBC 6.02 10*3/uL (4.50-10.00)
[2024-12-21] MEDS: LOSARTAN 25 MG TAB PO SCH (09:41)
[2024-12-21] MEDS: TORSEMIDE 20 MG TAB PO SCH (09:41)
[2024-12-21 09:56] LABS: ALT 16 U/L (4-49); AST 29 U/L (17-59); African American GFR (CKD) >90 (>60 ml/min/1.73 sqM); Albumin 2.8 g/dL (3.5-5.0); Alkaline Phosphatase 61 U/L (38-126); Anion Gap 10 mmol/L; Blood Urea Nitrogen 13 mg/dL (9-20); Calcium 8.4 mg/dL (8.4-10.2); Carbon Dioxide 26 mmol/L (22-30); Chloride 99 mmol/L (98-107); Glucose 138 mg/dL (74-99); Non-African American GFR(CKD) 84 (>60 ml/min/1.73 sqM); Potassium 3.5 mmol/L (3.5-5.1); Sodium 135 mmol/L (137-145); Total Protein 4.9 g/dL (6.3-8.2)
--- NOTE | 2024-12-21 12:47 | P.PN ---
Subjective Progress Note Date: 12/21/24 Principal diagnosis: Reason for follow-up is UTI and leukocytosis Patient is a 79-year-old male with a past medical history significant for GERD/Reflux, Hypertension, Osteoarthritis (OA), Prostate Disorder, Renal Disease, Skin Disorder, Sleep Apnea/CPAP/BIPAP, patient also have urinary retention requiring self-catheterization brought to the hospital for evaluation of weakness fell out of his chair did have a positive UA concerning for symptomatic UTI. On today's evaluation that is 12/21/2024,the patient denies any fever or any chills, patient is breathing comfortably on room air, the patient denies chest pain shortness of breath and no significant cough, patient denies abdominal pain, no nausea vomiting or diarrhea. Patient white count 6.02, creatinine 0.85 urine is growing gram-negative with ID sensitivities pending Objective - Vital Signs Vital signs: Vital Signs Temp 97.9 F 12/21/24 09:11 Pulse 85 12/21/24 09:11 Resp 16 12/21/24 09:11 BP 95/58 12/21/24 09:11 Pulse Ox 96 12/21/24 09:11 FiO2 Intake & Output 12/20/24 12/21/24 12/21/24 18:59 06:59 18:59 Intake Total 237 120 Output Total 1800 676 Balance -1563 -556 Weight 86.183 kg 89.5 kg Intake: Oral 237 120 Output: Urine 1800 675 Straight 1800 675 Stool 1 Other: Voiding Method Self-Catheterization Self-Catheterization Self-Catheterization - Exam GENERAL DESCRIPTION: An elderly male lying in bed in no distress RESPIRATORY SYSTEM: Unlabored breathing , decreased breath sounds at bases HEART: S1 S2 regular rate and rhythm , ABDOMEN: Soft , no tenderness EXTREMITIES: No edema feet - Labs CBC & Chem 7: 12/21/24 07:58 12/21/24 07:58 Labs: Abnormal Lab Results - Last 24 Hours (Table) 12/21/24 12/21/24 Range/Units 07:58 07:58 RBC 3.09 L (4.40-5.60) 10*6/uL Hgb 10.2 L (13.0-17.0) g/dL Hct 29.8 L (39.6-50.0) % MCH 33.0 H (27.0-32.0) pg Sodium 135 L (137-145) mmol/L Glucose 138 H (74-99) mg/dL Total Protein 4.9 L (6.3-8.2) g/dL Albumin 2.8 L (3.5-5.0) g/dL Microbiology - Last 24 Hours (Table) 12/19/24 09:09 Urine Culture - Preliminary Urine,Voided Gram Neg Bacilli Assessment and Plan (1) Urinary tract infection Current Visit: Yes Status: Acute Priority: Medium Code(s): N39.0 - URINARY TRACT INFECTION, SITE NOT SPECIFIED SNOMED Code(s): 74054958 (2) Leukocytosis Current Visit: No Status: Acute Priority: Medium Code(s): D72.829 - ELEVATED WHITE BLOOD CELL COUNT, UNSPECIFIED SNOMED Code(s): 364191774 Plan: 1patient presented to hospital with generalized weakness he did have a fall patient do have a risk factor for UTIs he has to self catheterize himself 5 times a day is complaining of urine getting darker cloudy some sediment, significantly positive UA and did have a suprapubic tenderness on initial evaluation likely recently symptomatic UTI likely from enteric gram-negative pathogen 2-leukocytosis likely due to UTI which has normalized with Rocephin and urine is growing gram-negative 3-patient is currently be treated with Rocephin while waiting for the urine culture to finalize to determine discharge antibiotics Dictation was produced using [employer] dictation software. please excuse any grammatical, word or spelling errors. Time with Patient: Less than 30
--- NOTE | 2024-12-21 12:58 | CA ---
Transthoracic Echo Report Name: Daniel Keene Age: 79 Gender: M : 1945 Exam Date: 12/21/2024 11:18 Exam Location: [facility] Ht (in): 63 Wt (lb): 190 Ordering Physician: Tamara Jacobo MD Attending/Referring Phys: Associate Dentist Nehemias Pfeiffer RDCS Procedure CPT: Indications: nstemi Cardiac Hx: Technical Quality: Fair Contrast 1: Total Dose (mL): Contrast 2: Total Dose (mL): MEASUREMENTS (Male / Female) Normal Values 2D ECHO LV Diastolic Diameter PLAX 6.0 cm 4.2 - 5.9 / 3.9 - 5.3 cm LV Systolic Diameter PLAX 4.8 cm IVS Diastolic Thickness 0.8 cm 0.6 - 1.0 / 0.6 - 0.9 cm LVPW Diastolic Thickness 0.9 cm 0.6 - 1.0 / 0.6 - 0.9 cm LV Relative Wall Thickness 0.3 RV Internal Dim ED PLAX 3.5 cm LVOT Diameter 2.5 cm Aortic Root Diameter 3.7 cm LA Systolic Diameter LX 4.2 cm 3.0 - 4.0 / 2.7 - 3.8 cm LV Diastolic Volume MOD BP 111.5 cm??? 67 - 155 / 56 - 104 cm??? LV Systolic Volume MOD BP 55.5 cm??? - 58 / 19 - 49 cm??? LV Ejection Fraction MOD BP 50.2 % >= 55 % LV Cardiac Index MOD BP 1600.0 cm???/min???m??? LV Diastolic Volume MOD 4C 117.7 cm??? LV Systolic Volume MOD 4C 57.9 cm??? LV Ejection Fraction MOD 4C 50.8 % LV Cardiac Index MOD 4C 1707.9 cm???/min???m??? LV Diastolic Length 4C 8.0 cm LV Systolic Length 4C 7.3 cm LV Diastolic Volume MOD 2C 104.8 cm??? LV Systolic Volume MOD 2C 48.7 cm??? LV Ejection Fraction MOD 2C 53.5 % LV Cardiac Index MOD 2C 1602.6 cm???/min???m??? LV Diastolic Length 2C 7.9 cm LV Systolic Length 2C 6.7 cm LA Volume 47.5 cm??? 18 - 58 / 22 - 52 cm??? LA Volume Index 23.8 cm???/m??? 16 - 28 cm???/m??? DOPPLER MV Area PHT 2.4 cm??? Mitral E Point Velocity 70.0 cm/s Mitral A Point Velocity 91.2 cm/s Mitral E to A Ratio 0.8 MV Deceleration Time 321.2 ms TR Peak Velocity 237.3 cm/s TR Peak Gradient 22.5 mmHg FINDINGS Left Ventricle Left ventricular ejection fraction is estimated at 50-55%. Mildly increased left ventricular diastolic diameter. Mildly decreased left ventricular ejection fraction. No obvious regional wall motion abnormalities. Left ventricular wall thickness normal. Left ventricular dilatation. Right Ventricle Moderate right ventricular dilatation. Dyskinetic right ventricular apex. Unable to estimate the right ventricular systolic pressure. Right Atrium Normal right atrial size. Left Atrium Mildly increased left atrial diameter. Mitral Valve Structurally normal mitral valve. No mitral stenosis.Trace mitral regurgitation. Aortic Valve Trileaflet aortic valve. No aortic valve stenosis or regurgitation. Tricuspid Valve Structurally normal tricuspid valve. No tricuspid stenosis. Mild tricuspid regurgitation. Pulmonic Valve Pulmonic valve not well visualized. No pulmonic stenosis. Trace to mild pulmonic regurgitation. Pericardium No pericardial effusion. Aorta Aortic annulus normal. CONCLUSIONS Normal LV function Previewed by: Dr. Guido Valladares MD (Electronically Signed) Final Date: 21 December 2024 12:57
--- NOTE | 2024-12-21 13:18 | P.PN ---
Subjective Progress Note Date: 12/21/24 Reason for Consult (text): NSTEMI History of present illness: This is a 79-year-old male patient of Dr. Miranda with past medical history of hypertension, idiopathic cardiomyopathy, morbid obesity with weight loss. We have been asked to evaluate the patient for NSTEMI. Patient gives history that he slid off a chair and landed on the floor. He states he normally sleeps in a recliner. He denies any injury. He denies lightheadedness, dizziness or sy ncope. He denies fever or chills. He denies chest pain or shortness of breath. Blood pressure 112/77, heart rate 79, pulse ox 95% on room air. Patient is seen today in the emergency center waiting for a bed on the cardiac stepdown unit. Patient has been started on IV antibiotics for UTI. -EKG: Sinus rhythm with Q waves V1, V2, V3 which are similar to previous EKGs, no acute changes. -Chest x-ray: No evidence of acute pulmonary disease. -CT brain: No acute intracranial hemorrhage or midline shift. There is diffuse age-related cerebral atrophy and chronic small vessel ischemic changes. -Laboratory studies: Initial WBC 13.4, hemoglobin 10.3, sodium 134, potassium 3.5, troponin 0.066, 0.058, 0.047. Urinalysis positive for infection. -Home cardiac medications: Aspirin 325 mg daily, losartan 25 mg daily, potassium chloride 20 mEq twice daily, torsemide 40 mg daily. -Cardiac catheterization performed 05/31/2021 revealed EF 42%, normal coronaries, right dominant. -Echocardiogram performed at [facility] on 10/27/2023 revealed poorly visualized endocardial and intracardiac valves. Normal LV systolic function. 12/21/2024 Patient seen and examined. Patient's blood pressure was low this morning and we decreased losartan as well as torsemide. Patient continues to deny chest pain, chest pressure. Patient was being prepared for discharge home today but when he got up he had orthostatic changes for which losartan and torsemide were held this morning and patient was continued on IV fluids. Echocardiogram remains pending. Blood work reveals hemoglobin 10.2, sodium 135, potassium 3.5, creatinine 0.85. Physical examination: Gen: This is 79-year-old male in no acute distress VS: reviewed HEENT: Head is atraumatic, normocephalic. Pupils equal, round. Sclerae is anicteric. NECK: Supple. No JVD. LUNGS: Clear to auscultation. No wheezes or rhonchi. No intercostal retract ions. HEART: Regular rate and rhythm. 2/6 systolic ejection murmur. ABDOMEN: Soft No tenderness. EXTREMITIES: No pedal edema. No calf tenderness. NEUROLOGICAL: Patient is awake, alert and oriented x3. Assessment: Urinary tract infection Elevated troponin and flat pattern, not indicative of acute coronary syndrome Fall out of chair possibly related to orthostatic hypotension Hypertension Hyperlipidemia Idiopathic cardiomyopathy Chronic diastolic heart failure Plan: Hold torsemide and losartan today Monitor orthostatic blood pressure Continue IV fluids 0.9 normal saline at 75 cc/h Obtain 2-D echocardiogram and Doppler study to assess cardiac structure and function Further recommendations to follow based upon clinical course Nurse practitioner note has been reviewed, I agree with documented findings and plan of care. Patient was seen and examined. Objective - Vital Signs Vital signs: Vital Signs Temp 97.8 F 12/20/24 19:40 Pulse 80 12/21/24 04:00 Resp 16 12/21/24 04:00 BP 93/59 12/21/24 04:00 Pulse Ox 97 12/21/24 04:00 FiO2 Intake & Output 12/20/24 12/21/24 12/21/24 18:59 06:59 18:59 Intake Total 237 120 Output Total 1800 676 Balance -1563 556 Weight 86.183 kg 89.5 kg Intake: Oral 237 120 Output: Urine 1800 675 Straight 1800 675 Stool 1 Other: Voiding Method Self-Catheterization Self-Catheterization - Labs CBC & Chem 7: 12/21/24 07:58 12/21/24 07:58 Labs: Microbiology - Last 24 Hours (Table) 12/19/24 09:09 Urine Culture - Preliminary Urine,Voided Gram Neg Bacilli
--- NOTE | 2024-12-21 14:51 | P.PN ---
Subjective Progress Note Date: 12/21/24 HISTORY OF PRESENT ILLNESS: This is a 79-year-old male with a previous medical history significant for hypertension and hypertensive cardiovascular disease, mixed hyperlipidemia, history of macrocytic anemia, history of recurrent urinary tract infection, history of bladder atony with self-catheterization, history of C. difficile colitis, history of enlarged prostate, history of obesity with obstructive sleep apnea, history of vitamin D deficiency, chronic diastolic heart failure, patient presented to the emergency department at [facility] today in the morning after he slipped out of his chair appears to be a bit confused at that time, and he could not get up so his called EMS who came and evaluated the patient and transferred him to the emergency department at [facility], here in the emergency department he was found to have a urinary tract infection, at the same time his troponin came back elevated, likely related to a type II RI versus non-ST elevation RI, patient was complaining of no chest pain at this time, he was complaining of generalized fatigue and weakness, patient was started on Lovenox 40 mg subcutaneously every 12 hours, and he was placed on aspirin 81 mg once every day, along with his medication, and I placed cardiology consultation, patient also was started on IV antibiotic in the form of ceftriaxone 2 g piggyback every 24 hours, echocardiogram was ordered for further evaluation of LV function, still pending at time of dictation. 12/20: Patient is sitting up in bed in no apparent distress, he is feeling a lot better today than yesterday, he did receive IV antibiotic, he did receive IV fluid resuscitation, his blood pressure stable at this time, he does not appear to have any fever or chills at this time, he is more awake and more alert today, we will continue to follow-up with the patient very closely, keep the patient hospital for another 24 hours, hopefully if we get the culture back in the next 24 hours patient can be discharged home on oral antibiotic and follow-up with us as an outpatient. 12/21: Patient is sitting up in bed he had an episode of orthostatic hypotension when his blood pressure dropped to 79/45, we held his medication today, patient will be given IV fluid resuscitation in the form of normal saline at 75 cc an hour, I will keep the patient in the hospital for another 24 hours, urine culture still not finalized yet, once the urine culture is back, patient can be discharged home hopefully in the next 24 hours, follow-up with the patient very closely. REVIEW OF SYSTEMS: Constitutional: No documented fever, no chills, no night sweats. No weight change. Positive for weakness, fatigue or lethargy. No daytime sleepiness. EENT: No headache. No blurred vision or double vision, no loss of vision. No loss of Hearing, no ringing in the ears, no dizziness. No nasal drainage or congestion. No epistaxis. No sore throat. Lungs: No shortness of breath, no cough, no sputum production. No wheezing. Reports dyspnea with activity. Cardiovascular: No chest pain, no lower extremity edema. No palpitations. No paroxysmal nocturnal dyspnea. No orthopnea. No lightheadedness or dizziness. No syncopal episodes. Abdominal: Reports no abdominal pain. No nausea, vomiting. No diarrhea. No constipation. No bloody or tarry stools reports loss of appetite. Genitourinary: No dysuria, increased frequency, urgency. No urinary retention. Musculoskeletal: No myalgias. Positive for muscle weakness, positive for gait dysfunction, positive for frequent falls. Positive for back pain. No neck pa in. Integumentary: No wounds, no lesions. No rash or pruritus. No unusual bruising. No change in hair or nails. Neurologic: No aphasia. No facial droop. Positive for mild change in mentation. No head injury. No headache. No paralysis. No paresthesia. Psychiatric: No depression. No anxiety. No mood swings. Endocrine: No abnormal blood sugars. No weight change. PHYSICAL EXAMINATION: General: This is 79-year-old male laying down in bed appears to be in minimal distress. Generally weak. HEENT: Head is atraumatic, normocephalic, pupils were equal round reactive to light and recommendation, extraocular muscle movement were intact, sclera nonicteric, conjunctivae were pale, mucous membranes of the mouth are somewhat dry. Neck: Supple, no JVP, normal carotid upstroke bilaterally, no lymphadenopathy. Chest: Decreased breath sounds at the bases, few rhonchi, no expiratory wheezes, no chest wall tenderness, no intercostal retractions. Heart: First heart sound is normal, second heart sounds normal there is systolic ejection murmur 2/6 systolic in the left sternal border. Abdomen: Soft, nontender, nondistended, positive bowel sounds. Extremities: There is no edema no calf tenderness DP +2 bilaterally. Neurologic examination: Patient is awake alert and oriented x3, cranial nerves II-12 appear grossly intact, muscle power were 4 out of 5 in upper extremities and 3 out of 5 in bilateral lower extremities, deep tendon reflexes normal bilaterally. ASSESSMENT AND PLAN: 1. Complicated urinary tract infection with sepsis. Urine culture, blood culture, continue ceftriaxone 2 g piggyback every 24 hours, infectious disease consultation, continue to monitor the patient very closely, urine culture still pending. 2. Non-ST elevation RI versus type II RI at this time due to sepsis. Continue Lovenox 80 mg subcutaneously twice every day, continue aspirin 81 g once every day, cardiology consultation appreciated, echocardiogram was done still pending at time of dictation. 3. Recurrent C. difficile colitis. Patient was treated multiple times for C. difficile, patient may need to be started on vancomycin 125 mg orally 4 times every day for prophylaxis for the next 7 days. Will discuss with ID. 4. Hypertension and hypertensive cardiovascular disease. Continue patient on losartan 25 mg orally once every day, monitor the patient blood pressure very closely. 5. Mixed hyperlipidemia. Patient is not taking any medication at this point in time. 6. Enlarged prostate. With bladder atony and self-catheterization currently has a Garcia catheter in place. Continue with doxazosin 8 mg at bedtime. 7. Spondylosis of the lumbar spine. Continue baclofen 5 mg at bedtime. 8. History of recurrent kidney stones. Stable at this time. 9. Chronic diastolic heart failure. Continue patient on torsemide 40 mg once every day, along with potassium supplementation 20 mill equivalent twice every day, monitor the patient CMP and magnesium level. Check echocardiogram for LV function. 10. History of onychomycosis. Continue terbinafine 250 mg orally once every day. 11. DVT prophylaxis. Lovenox 40 mg subcutaneous twice every day. 12. GI prophylaxis. Continue patient on Protonix 40 mg once every day. 13. Obesity with obstructive sleep apnea. Continue patient on CPAP. Continue modafinil 300 mg orally once every day. 14. Orthostatic hypotension likely due to volume depletion. Patient losartan was decreased to 12.5 mg once every day, hold torsemide for today, it was decreased to 20 mg once every day, patient will be given IV fluid resuscitation in the form of normal saline at 75 cc an hour, I will keep the patient in the hospital for another 24 hours, hopefully he will be able to ambulate and go home tomorrow morning. Objective - Vital Signs Vital signs: Vital Signs Temp 97.9 F 12/21/24 09:11 Pulse 84 12/21/24 12:46 Resp 16 12/21/24 12:46 BP 91/58 12/21/24 12:46 Pulse Ox 97 12/21/24 12:46 FiO2 Intake & Output 12/20/24 12/21/24 12/21/24 18:59 06:59 18:59 Intake Total 237 120 Output Total 1800 676 Balance -1563 -556 Weight 86.183 kg 89.5 kg Intake: Oral 237 120 Output: Urine 1800 675 Straight 1800 675 Stool 1 Other: Voiding Method Self-Catheterization Self-Catheterization Self-Catheterization - Labs CBC & Chem 7: 12/21/24 07:58 12/21/24 07:58 Labs: Abnormal Lab Results - Last 24 Hours (Table) 12/21/24 12/21/24 Range/Units 07:58 07:58 RBC 3.09 L (4.40-5.60) 10*6/uL Hgb 10.2 L (13.0-17.0) g/dL Hct 29.8 L (39.6-50.0) % MCH 33.0 H (27.0-32.0) pg Sodium 135 L (137-145) mmol/L Glucose 138 H (74-99) mg/dL Total Protein 4.9 L (6.3-8.2) g/dL Albumin 2.8 L (3.5-5.0) g/dL Microbiology - Last 24 Hours (Table) 12/19/24 09:09 Urine Culture - Final Urine,Voided Escherichia coli
[2024-12-21 23:31] VITALS: RESP 16
[2024-12-22 05:25] VITALS: TEMP 98
[2024-12-22 10:51] VITALS: BP 98/60; PULSE 76
--- NOTE | 2024-12-22 14:47 | P.PN ---
Subjective Progress Note Date: 12/22/24 Reason for Consult (text): NSTEMI History of present illness: This is a 79-year-old male patient of Dr. Miranda with past medical history of hypertension, idiopathic cardiomyopathy, morbid obesity with weight loss. We have been asked to evaluate the patient for NSTEMI. Patient gives history that he slid off a chair and landed on the floor. He states he normally sleeps in a recliner. He denies any injury. He denies lightheadedness, dizziness or sy ncope. He denies fever or chills. He denies chest pain or shortness of breath. Blood pressure 112/77, heart rate 79, pulse ox 95% on room air. Patient is seen today in the emergency center waiting for a bed on the cardiac stepdown unit. Patient has been started on IV antibiotics for UTI. -EKG: Sinus rhythm with Q waves V1, V2, V3 which are similar to previous EKGs, no acute changes. -Chest x-ray: No evidence of acute pulmonary disease. -CT brain: No acute intracranial hemorrhage or midline shift. There is diffuse age-related cerebral atrophy and chronic small vessel ischemic changes. -Laboratory studies: Initial WBC 13.4, hemoglobin 10.3, sodium 134, potassium 3.5, troponin 0.066, 0.058, 0.047. Urinalysis positive for infection. -Home cardiac medications: Aspirin 325 mg daily, losartan 25 mg daily, potassium chloride 20 mEq twice daily, torsemide 40 mg daily. -Cardiac catheterization performed 05/31/2021 revealed EF 42%, normal coronaries, right dominant. -Echocardiogram performed at [facility] on 10/27/2023 revealed poorly visualized endocardial and intracardiac valves. Normal LV systolic function. 12/21/2024 Patient seen and examined. Patient's blood pressure was low this morning and we decreased losartan as well as torsemide. Patient continues to deny chest pain, chest pressure. Patient was being prepared for discharge home today but when he got up he had orthostatic changes for which losartan and torsemide were held this morning and patient was continued on IV fluids. Echocardiogram remains pending. Blood work reveals hemoglobin 10.2, sodium 135, potassium 3.5, creatinine 0.85. 12/22/2024 Patient seen and examined. Blood pressure still remains on the low side at 98/60. He denies chest pain no chest pressure no shortness of breath no fluttering in his chest. Patient remains in sinus rhythm on telemetry. Echocardiogram reveals normal LV function. Physical examination: Gen: This is 79-year-old male in no acute distress VS: reviewed HEENT: Head is atraumatic, normocephalic. Pupils equal, round. Sclerae is anicteric. NECK: Supple. No JVD. LUNGS: Clear to auscultation. No wheezes or rhonchi. No intercostal retractions. HEART: Regular rate and rhythm. 2/6 systolic ejection murmur. ABDOMEN: Soft No tenderness. EXTREMITIES: No pedal edema. No calf tenderness. NEUROLOGICAL: Patient is awake, alert and oriented x3. Assessment: Urinary tract infection Elevated troponin and flat pattern, not indicative of acute coronary syndrome Fall out of chair possibly related to orthostatic hypotension Hypertension Hyperlipidemia Idiopathic cardiomyopathy Chronic diastolic heart failure Plan: Continue torsemide at half dose Discontinue losartan Patient is cleared for discharge from cardiology perspective and will follow-up with Dr. Miranda in 1 week. Nurse practitioner note has been reviewed, I agree with documented findings and plan of care. Patient was seen and examined. Objective - Vital Signs Vital signs: Vital Signs Temp 98 F 12/22/24 04:00 Pulse 60 12/22/24 04:00 Resp 16 12/22/24 04:00 BP 100/61 12/22/24 04:00 Pulse Ox 97 12/22/24 04:00 FiO2 Intake & Output 12/21/24 12/22/24 12/22/24 18:59 06:59 18:59 Intake Total 637.5 Output Total 500 800 Balance 137.5 -800 Weight 93 kg Intake: IV 637.5 Sodium Chloride 0.9% 1, 637.5 000 ml @ 75 mls/hr IV . [id number] [facility] Rx#:[id number] Output: Urine 500 800 Other: Voiding Method Self-Catheterization Self-Catheterization # Voids 1 # Bowel Movements 1 - Labs CBC & Chem 7: 12/21/24 07:58 12/21/24 07:58 Labs: Abnormal Lab Results - Last 24 Hours (Table) 12/21/24 Range/Units 07:58 Sodium 135 L (137-145) mmol/L Glucose 138 H (74-99) mg/dL Total Protein 4.9 L (6.3-8.2) g/dL Albumin 2.8 L (3.5-5.0) g/dL Microbiology - Last 24 Hours (Table) 12/19/24 09:09 Urine Culture - Final Urine,Voided Escherichia coli
--- NOTE | 2024-12-25 15:07 | P.PN ---
Subjective Progress Note Date: 12/22/24 Principal diagnosis: Reason for follow-up is UTI and leukocytosis Patient is a 79-year-old male with a past medical history significant for GERD/Reflux, Hypertension, Osteoarthritis (OA), Prostate Disorder, Renal Disease, Skin Disorder, Sleep Apnea/CPAP/BIPAP, patient also have urinary retention requiring self-catheterization brought to the hospital for evaluation of weakness fell out of his chair did have a positive UA concerning for symptomatic UTI. On today's evaluation that is 12/22/2024,the patient remains to be afebrile, patient is on room air not requiring supplemental oxygen and denies any shortness of breath no chest pain or cough.Patient denies having any nausea or vomiting, no abdominal pain and no diarrhea has been reported patient mention feeling better. No new lab has been obtained today urine with E. coli sensitive to ceftriaxone Objective - Vital Signs Vital signs: Vital Signs Temp 98 F 12/22/24 08:15 Pulse 76 12/22/24 08:15 Resp 16 12/22/24 08:15 BP 98/60 12/22/24 08:15 Pulse Ox 98 12/22/24 08:15 FiO2 Intake & Output 12/21/24 12/22/24 12/22/24 18:59 06:59 18:59 Intake Total 637.5 Output Total 500 800 Balance 137.5 -800 Weight 93 kg Intake: IV 637.5 Sodium Chloride 0.9% 1, 637.5 000 ml @ 75 mls/hr IV . [id number] COUNT INCLUDES THE [facility] Rx#:[id number] Output: Urine 500 800 Other: Voiding Method Self-Catheterization Self-Catheterization Self-Catheterization # Voids 1 # Bowel Movements 1 - Exam GENERAL DESCRIPTION: An elderly male lying in bed in no distress RESPIRATORY SYSTEM: Unlabored breathing , decreased breath sounds at bases HEART: S1 S2 regular rate and rhythm , ABDOMEN: Soft , no tenderness EXTREMITIES: No edema feet - Labs CBC & Chem 7: 12/21/24 07:58 12/21/24 07:58 Labs: Microbiology - Last 24 Hours (Table) 12/19/24 09:09 Urine Culture - Final Urine,Voided Escherichia coli Assessment and Plan (1) Urinary tract infection Status: Acute Priority: Medium Code(s): N39.0 - URINARY TRACT INFECTION, SITE NOT SPECIFIED SNOMED Code(s): 48997986 (2) Leukocytosis Status: Acute Priority: Medium Code(s): D72.829 - ELEVATED WHITE BLOOD CELL COUNT, UNSPECIFIED SNOMED Code(s): 421061635 Plan: 1patient presented to hospital with generalized weakness he did have a fall patient do have a risk factor for UTIs he has to self catheterize himself 5 times a day is complaining of urine getting darker cloudy some sediment, significantly positive UA and did have a suprapubic tenderness on initial evaluation likely recently symptomatic UTI likely from enteric gram-negative pathogen 2-leukocytosis likely due to UTI which has normalized with Rocephin and urine is growing E. coli sensitive to ceftriaxone 3-patient has shown clinical improvement on ceftriaxone to finish therapy with oral Ceftin discussed with CORPORATE INVESTIGATOR for admitting team working on discharge Dictation was produced using [employer] dictation software. please excuse any grammatical, word or spelling errors. Time with Patient: Less than 30
--- NOTE | 2024-12-27 18:19 | P.DS ---
Providers Date of admission: 12/19/24 10:25 Expected date of discharge: 12/22/24 Attending physician: Tamara Jacobo Consults: 12/19/24 12:57 Consult Physician Urgent Consulting Provider: Rod Ceballos Consult Reason/Comments: NSTEMI Do you want consulting provider notified?: Yes 12/19/24 13:01 Consult Physician Routine Consulting Provider: Nick Rodarte Consult Reason/Comments: UTI Do you want consulting provider notified?: Yes Primary care physician: Tamara Jacobo Hospital Course: HISTORY OF PRESENT ILLNESS: This is a 79-year-old male with a previous medical history significant for hypertension and hypertensive cardiovascular disease, mixed hyperlipidemia, history of macrocytic anemia, history of recurrent urinary tract infection, history of bladder atony with self-catheterization, history of C. difficile colitis, history of enlarged prostate, history of obesity with obstructive sleep apnea, history of vitamin D deficiency, chronic diastolic heart failure, patient presented to the emergency department at [facility] today in the morning after he slipped out of his chair appears to be a bit confused at that time, and he could not get up so his called EMS who came and evaluated the patient and transferred him to the emergency department at [facility], here in the emergency department he was found to have a urinary tract infection, at the same time his troponin came back elevated, likely related to a type II NH versus non-ST elevation NH, patient was complaining of no chest pain at this time, he was complaining of generalized fatigue and weakness, patient was started on Lovenox 40 mg subcutaneously every 12 hours, and he was placed on aspirin 81 mg once every day, along with his medication, and I placed cardiology consultation, patient also was started on IV antibiotic in the form of ceftriaxone 2 g piggyback every 24 hours, echocardiogram was ordered for further evaluation of LV function, still pending at time of dictation. 12/20: Patient is sitting up in bed in no apparent distress, he is feeling a lot better today than yesterday, he did receive IV antibiotic, he did receive IV fluid resuscitation, his blood pressure stable at this time, he does not appear to have any fever or chills at this time, he is more awake and more alert today, we will continue to follow-up with the patient very closely, keep the patient hospital for another 24 hours, hopefully if we get the culture back in the next 24 hours patient can be discharged home on oral antibiotic and follow-up with us as an outpatient. 12/21: Patient is sitting up in bed he had an episode of orthostatic hypotension when his blood pressure dropped to 79/45, we held his medication today, patient will be given IV fluid resuscitation in the form of normal saline at 75 cc an hour, I will keep the patient in the hospital for another 24 hours, urine culture still not finalized yet, once the urine culture is back, patient can be discharged home hopefully in the next 24 hours, follow-up with the patient very closely. 12/22: Patient is sitting up in bed in no apparent distress, he denies any chest pain, shortness of breath, he is ambulating very well, he has not had any dizziness or lightheadedness, he seems to be tolerating treatment very well, patient will be discharged home today, follow-up with me as an outpatient next week, he is aware of the adjustment that we made on his medication. Discharge diagnoses: 1. Complicated urinary tract infection with sepsis. 2. Non-ST elevation NH versus type II NH at this time due to sepsis. 3. Recurrent C. difficile colitis. 4. Hypertension and hypertensive cardiovascular disease. 5. Mixed hyperlipidemia. 6. Enlarged prostate. 7. Spondylosis of the lumbar spine. 8. History of recurrent kidney stones. 9. Chronic diastolic heart failure. 10. History of onychomycosis. 11. Obesity with obstructive sleep apnea. 12. Orthostatic hypotension likely due to volume depletion. Patient Condition at Discharge: Fair Plan - Discharge Summary Discharge Rx Participant: Yes New Discharge Prescriptions: New cefuroxime axetiL [Ceftin] 500 mg PO BID #22 tab Continue Aspirin 325 mg PO DAILY Doxazosin Mesylate 8 mg PO HS Baclofen 5 mg PO HS Terbinafine [LamISIL] 250 mg PO DAILY Potassium Chloride ER [K-Dur 20] 20 meq PO BID Phentermine HCl [Adipex-P] 37.5 mg PO DAILY #3 tab modafiniL [Provigil] 300 mg PO DAILY #3 tab Ketoconazole 2% Cream [Nizoral 2%] 1 applic TOPICAL BID PRN PRN Reason: groin when flared Multivit,Calc,Min/FA/K1/Lycop [One-A-Day Men's Complete Tab] 1 tab PO DAILY Changed Torsemide [Demadex] 20 mg PO DAILY #0 Discontinued Losartan [Cozaar] 25 mg PO DAILY Discharge Medication List Aspirin 325 mg PO DAILY 10/28/13 [History] Baclofen 5 mg PO HS 12/29/23 [History] Doxazosin Mesylate 8 mg PO HS 12/29/23 [History] Potassium Chloride ER [K-Dur 20] 20 meq PO BID 12/29/23 [History] Phentermine HCl [Adipex-P] 37.5 mg PO DAILY #3 tab 07/14/24 [Rx] modafiniL [Provigil] 300 mg PO DAILY #3 tab 07/14/24 [Rx] Ketoconazole 2% Cream [Nizoral 2%] 1 applic TOPICAL BID PRN 12/19/24 [History] Multivit,Calc,Min/FA/K1/Lycop [One-A-Day Men's Complete Tab] 1 tab PO DAILY 12/19/24 [History] Terbinafine [LamISIL] 250 mg PO DAILY 12/19/24 [History] Torsemide [Demadex] 20 mg PO DAILY #0 12/22/24 [Rx] cefuroxime axetiL [Ceftin] 500 mg PO BID #22 tab 12/22/24 [Rx] Follow up Appointment(s)/Referral(s): Linda Miranda MD [STAFF PHYSICIAN] - 1 Week (Office to call with appointment date and time.) Tamara Jacobo MD [Primary Care Provider] - 12/29/24 3:30 pm (With [employer]) Patient Instructions/Handouts: Urinary Tract Infection in Men (DC), How to Catheterize Yourself (Man) (GEN) Discharge Disposition: HOME SELF-CARE
== END 2024-12-22 13:08 | disposition home or self-care (01) ==
LOC: EC 08:33 → 3SCARD 10:25
PROVIDERS: ADMIT Internal Medicine; ATTEND Internal Medicine
DX: N39.0 Urinary tract infection, site not specified (principal); A41.9 Sepsis, unspecified organism; R79.89 Other specified abnormal findings of blood chemistry; A04.71 Enterocolitis due to Clostridium difficile, recurrent; I95.1 Orthostatic hypotension; E86.9 Volume depletion, unspecified; I11.0 Hypertensive heart disease with heart failure; I50.32 Chronic diastolic (congestive) heart failure; E66.9 Obesity, unspecified; B35.1 Tinea unguium; G47.33 Obstructive sleep apnea (adult) (pediatric); E78.2 Mixed hyperlipidemia; I42.8 Other cardiomyopathies; M47.816 Spondylosis without myelopathy or radiculopathy, lumbar region; N31.2 Flaccid neuropathic bladder, not elsewhere classified; N40.0 Benign prostatic hyperplasia without lower urinary tract symptoms; Z79.82 Long term (current) use of aspirin; Z79.899 Other long term (current) drug therapy; Z87.440 Personal history of urinary (tract) infections; Z87.442 Personal history of urinary calculi; Z87.891 Personal history of nicotine dependence; W07.XXXA Fall from chair, initial encounter
CPT/HCPCS: 96366 ×3; 96372 ×5; 96376; 96361 ×2; 96365; 99285; 36415; 93005; 93306; 97162; 80053 ×3; 82140; 84484; 85025 ×3; 85610; 85730; 81001; 87086; 87077; 87186; 71046; 70450; G0378 ×4; J0696 ×4; J1650 ×4